=== PATIENT | female | born 1940 | race Caucasian/White ===

== ENCOUNTER 2019-09-03 10:13 | Observation (INO) | payer MEDICARE, OTHER ==
--- OUTSIDE RECORDS SUMMARY | 2019-09-03 10:15 | XMS REPORT ---
:1940 [facility] Address [address] [place] [address] Dr. Christie [address] [place] [id number] Care Team Providers Name Role Phone Unavailable Unavailable Unavailable Problems This patient has no known problems. Allergies, Adverse Reactions, Alerts This patient has no known allergies or adverse reactions. Medications This patient has no known medications.
--- NOTE | 2019-09-03 10:51 | RAD REPORT ---
EXAM DESCRIPTION: RAD - Chest Single View - 09/03/2019 10:45 am CLINICAL HISTORY: CHEST PAIN Chest pain. COMPARISON: No comparisons FINDINGS: Portable technique limits examination quality. The lungs are grossly clear. The heart is normal in size. Changes of a prior CABG are noted. IMPRESSION: No acute intrathoracic process suspected.
[2019-09-03 11:40] LABS: Protime INR 0.89
[2019-09-03 11:48] LABS: Absolute Lymphocytes (CBC) 2.5 K/uL (0.7-4.9); Basophils % 0.8 % (0-1.3); Hematocrit 40.8 % (36.0-45.0); Lymphocytes % 35.3 % (15.3-44.8); MPV 9.2 fL (7.6-11.3)
[2019-09-03 11:50] LABS: ALT/SGPT 24 U/L (12-78); AST/SGOT 26 U/L (15-37); Albumin 3.4 g/dL (3.4-5.0); Alkaline Phosphatase 99 U/L (45-117); BUN Blood Urea Nitrogen 20 mg/dL (7-18); Bicarbonate 28 mmol/L (21-32); Bilirubin Direct 0.1 mg/dL (0-0.2); Bilirubin Total 0.3 mg/dL (0.2-1.0); Glucose Level 103 mg/dL (74-106); Magnesium 2.2 mg/dL (1.8-2.4); NT PRO-BNP 210 pg/mL (<450); Potassium 3.9 mmol/L (3.5-5.1); Sodium Level 142 mmol/L (136-145); Troponin (Emerg Dept Use Only) < 0.02 ng/mL (0.0-0.045)
--- NOTE | 2019-09-03 12:08 | EDPHYS ---
Physician Documentation [facility] Name: Michaela Matias Age: 79 yrs Sex: Female : 1940 Arrival Date: 09/03/2019 Time: 10:16 Bed 5 Private MD: ED Physician Alfredito Gustafson HPI: 09/03 10:37 This 79 yrs old Female presents to ER via Wheelchair with complaints of Chest tw4 Discomfort. 10:37 The patient or guardian reports chest pain that is located primarily in the anterior tw4 chest wall, left. Onset: just prior to arrival, this morning. The pain does not radiate. Associated signs and symptoms: Pertinent positives: nausea, generalized weakness. The chest pain is described as a pressure, squeezing. Duration: The patient or guardian reports a single episode, that is now resolved. Modifying factors: The symptoms are alleviated by nothing. the symptoms are aggravated by nothing. Severity of pain: At its worst the pain was mild in the emergency department the pain has improved. Historical: - Allergies: 10:32 No Known Allergies; sv - PMHx: 10:32 Dementia; Alzheimers; Hypertension; High Cholesterol; sv - PSHx: 10:32 triple bypass; sv - Immunization history:: Flu vaccine is up to date. - Coronavirus screen:: The patient has NOT traveled to [place] in the past 14 days. Proceed with normal triage process as indicated. The patient has NOT had contact with known/suspected case of Coronavirus? Proceed with normal triage procedures. - Social history:: Smoking status: Patient denies any tobacco usage or history of. - Ebola Screening: : No symptoms or risks identified at this time. ROS: 10:37 Constitutional: Negative for fever, chills, and weight loss, Eyes: Negative for injury, tw4 pain, redness, and discharge, ENT: Negative for injury, pain, and discharge, Respiratory: Negative for shortness of breath, cough, wheezing, and pleuritic chest pain, Back: Negative for injury and pain, MS/Extremity: Negative for injury and deformity, Skin: Negative for injury, rash, and discoloration. 10:37 Cardiovascular: Positive for chest pain, Negative for edema, orthopnea, palpitations, paroxysmal nocturnal dyspnea. 10:37 Abdomen/GI: Positive for nausea, Negative for abdominal pain, nausea and vomiting, diarrhea, constipation, abdominal cramps, abdominal distension, anorexia, dysphagia, hematemesis, black/tarry stool. 10:37 Neuro: Positive for weakness. Exam: 10:37 Constitutional: This is a well developed, well nourished patient who is awake, alert, tw4 and in no acute distress. Head/Face: Normocephalic, atraumatic. Neck: Trachea midline, no thyromegaly or masses palpated, and no cervical lymphadenopathy. Supple, full range of motion without nuchal rigidity, or vertebral point tenderness. No Meningismus. Chest/axilla: Normal chest wall appearance and motion. Nontender with no deformity. No lesions are appreciated. Cardiovascular: Regular rate and rhythm with a normal S1 and S2. No gallops, murmurs, or rubs. Normal PMI, no JVD. No pulse deficits. Respiratory: Lungs have equal breath sounds bilaterally, clear to auscultation and percussion. No rales, rhonchi or wheezes noted. No increased work of breathing, no retractions or nasal flaring. Abdomen/GI: Soft, non-tender, with normal bowel sounds. No distension or tympany. No guarding or rebound. No evidence of tenderness throughout. Back: No spinal tenderness. No costovertebral tenderness. Full range of motion. Skin: Warm, dry with normal turgor. Normal color with no rashes, no lesions, and no evidence of cellulitis. MS/ Extremity: Pulses equal, no cyanosis. Neurovascular intact. Full, normal range of motion. Neuro: Awake and alert, GCS 15, oriented to person, place, time, and situation. Cranial nerves II-XII grossly intact. Motor strength 5/5 in all extremities. Sensory grossly intact. Cerebellar exam normal. Normal gait. Vital Signs: 10:31 BP 142 / 72; Pulse 78; Resp 19; Temp 98; Pulse Ox 95% ; Weight 54.43 kg; Height 5 ft. 1 sv in. (154.94 cm); Pain 0/10; 11:35 BP 134 / 66; Pulse 73; Resp 19; Pulse Ox 95% ; sv 12:30 BP 154 / 50; Pulse 76; Resp 20; Pulse Ox 96% ; bp 13:23 BP 153 / 61; Pulse 75; Resp 16; Pulse Ox 97% ; bp 10:31 Body Mass Index 22.67 (54.43 kg, 154.94 cm) sv MDM: 10:24 Patient medically screened. tw 12:08 HEART Score: History: Moderately Suspicious (1), ECG: Non specific repolarization tw4 disturbance / LBTB / PM (1), Age: > or = 65 years (2), Risk Factors: 1 or 2 risk factors (1), Troponin: < or = 1 x Normal Limit (0), Total Score = 5. The patient was given aspirin in the Emergency Department. Data reviewed: vital signs, nurses notes, lab test result(s), cardiac enzymes, CBC, electrolytes, hepatic panel. Data interpreted: monitoring analyst: rhythm is normal sinus rhythm, Pulse oximetry: Interpretation: normal. Counseling: I had a detailed discussion with the patient and/or guardian regarding: the historical points, exam findings, and any diagnostic results supporting the discharge/admit diagnosis, lab results, radiology results. Physician consultation: Milo Arechiga MD was contacted at 12:05, regarding admission, to the telemetry unit. patient's condition, and will see patient in ED. 09/03 10:24 Order name: Basic Metabolic Panel; Complete Time: 12:05 09/03 12:05 Interpretation: Normal except: CL 109; BUN 20; GFR 43. 09/03 10:24 Order name: CBC with Diff; Complete Time: 12:05 09/03 12:05 Interpretation: Within normal limits. 09/03 10:24 Order name: LFT's; Complete Time: 12:05 09/03 12:05 Interpretation: Normal except: GLOB 3.6; A/G 0.9. 09/03 10:24 Order name: Magnesium; Complete Time: 12:05 09/03 12:05 Interpretation: Within normal limits: MG 2.2. 09/03 10:24 Order name: NT PRO-BNP; Complete Time: 12:05 09/03 12:05 Interpretation: Within normal limits: NT PRO-BNP 210. 09/03 10:24 Order name: PT-INR; Complete Time: 12:05 09/03 12:05 Interpretation: Within normal limits: PT 10.6. 09/03 10:24 Order name: Troponin (emerg Dept Use Only); Complete Time: 12:05 09/03 12:06 Interpretation: Within normal limits: TROPED < 0.02. tw4 09/03 12:39 Order name: Urinalysis EDKS 09/03 12:39 Order name: Basic Metabolic Panel [facility] 09/03 12:39 Order name: Basic Metabolic Panel [facility] 09/03 12:39 Order name: CBC with Automated Diff EDKS 09/03 12:39 Order name: CBC with Automated Diff [facility] 09/03 12:40 Order name: Magnesium [facility] 09/03 12:40 Order name: Magnesium [facility] 09/03 10:24 Order name: XRAY Chest (1 view); Complete Time: 11:45 tw4 09/03 10:24 Order name: EKG; Complete Time: 10:32 tw 09/03 10:24 Order name: Cardiac monitoring; Complete Time: 10:30 [facility] 09/03 10:24 Order name: EKG - Nurse/Tech; Complete Time: 10:49 tw4 09/03 10:24 Order name: IV Saline Lock; Complete Time: 10:49 [facility] 09/03 10:24 Order name: Labs collected and sent; Complete Time: 10:49 [facility] 09/03 10:24 Order name: O2 Per Protocol; Complete Time: 10:30 tw 09/03 10:24 Order name: O2 Sat Monitoring; Complete Time: 10:30 [facility] 09/03 10:56 Order name: Labs - recollect needed: recollect everything; Complete Time: 11:23 09/03 12:39 Order name: CONS Physician Consult [facility] 09/03 12:39 Order name: Heart Healthy [facility] 09/03 12:40 Order name: Phosphorus [facility] 09/03 12:40 Order name: Phosphorus [facility] 09/03 12:41 Order name: Echo with Doppler EDKS EC:37 Rate is 74 beats/min. Rhythm is regular. QRS [place] is Normal. [place] interval is normal. QRS tw4 interval is normal. QT interval is normal. No Q waves. T waves are Inverted in lead III. T waves are Flattened in lead aVF. No ST changes noted. Clinical impression: NSR w/ Non-specific ST/T Changes. Interpreted by me. Reviewed by me. Administered Medications: No medications were administered Disposition: 09/03/19 12:08 Hospitalization ordered by Milo Arechiga for Observation. Preliminary diagnosis is Chest pain, unspecified. - Bed requested for Telemetry/MedSurg (observation). - Status is Observation. tm3 - Condition is Stable. - Problem is new. - Symptoms have improved. Signatures: Dispatcher [employer] EDMS Lizett Blankenship mark Nadeem, Jones tm3 Aaliyah Camejo, RN RN Melo Simon RN RN ja1 Alfredito Gustafson MD MD tw4 Corrections: (The following items were deleted from the chart) 12:54 12:08 Hospitalization Ordered by Milo Arechiga MD for Observation. Preliminary ja1 diagnosis is Chest pain, unspecified. Bed requested for Telemetry/MedSurg (observation). Status is Observation. Condition is Stable. Problem is new. Symptoms have improved. tw4 13:52 12:54 09/03/2019 12:08 Hospitalization Ordered by Milo Arechiga MD for Observation. tm3 Preliminary diagnosis is Chest pain, unspecified. Bed requested for Telemetry/MedSurg (observation). Status is Observation. Condition is Stable. Problem is new. Symptoms have improved. ja1
--- NOTE | 2019-09-03 12:08 | ER ---
Nurse's Notes [facility] Name: Michaela Matias Age: 79 yrs Sex: Female : 1940 Arrival Date: 09/03/2019 Time: 10:16 Bed 5 Private MD: Diagnosis: Chest pain, unspecified Presentation: 09/03 10:30 Presenting complaint: Patient states: was awake at home and started having "chest sv discomfort" (pointing to midsternal area) and SOB/nausea/shaking. Denies vomiting and SOB at this time. Transition of care: patient was not received from another setting of care. Onset of symptoms was September 03, 2019. 10:30 Method Of Arrival: Wheelchair sv 10:30 Acuity: ROSALBA 3 sv 10:30 Risk Assessment: Do you want to hurt yourself or someone else? Patient reports no sv desire to harm self or others. Initial Sepsis Screen: Does the patient meet any 2 criteria? No. Patient's initial sepsis screen is negative. Does the patient have a suspected source of infection? No. Patient's initial sepsis screen is negative. Care prior to arrival: None. Triage Assessment: 10:30 General: Appears in no apparent distress. comfortable, Behavior is calm, cooperative, sv appropriate for age. Pain: Denies pain. Neuro: Level of Consciousness is awake, alert, obeys commands, Oriented to person, place, time, situation, Moves all extremities. Full function Gait is steady. Cardiovascular: Denies shortness of breath, Chest pain is denied. Respiratory: Airway is patent Respiratory effort is even, unlabored, Respiratory pattern is regular, symmetrical. Derm: Skin is fragile, is thin, Skin is normal. Musculoskeletal: Range of motion: intact in all extremities. Historical: - Allergies: 10:32 No Known Allergies; sv - PMHx: 10:32 Dementia; Alzheimers; Hypertension; High Cholesterol; sv - PSHx: 10:32 triple bypass; sv - Immunization history:: Flu vaccine is up to date. - Coronavirus screen:: The patient has NOT traveled to [place] in the past 14 days. Proceed with normal triage process as indicated. The patient has NOT had contact with known/suspected case of Coronavirus? Proceed with normal triage procedures. - Social history:: Smoking status: Patient denies any tobacco usage or history of. - Ebola Screening: : No symptoms or risks identified at this time. Screenin:31 Abuse screen: Denies threats or abuse. Denies injuries from another. Nutritional sv screening: No deficits noted. Tuberculosis screening: No symptoms or risk factors identified. Fall Risk None identified. Assessment: 11:35 Reassessment: Patient appears in no apparent distress at this time. No changes from sv previously documented assessment. Patient and/or family updated on plan of care and expected duration. Pain level reassessed. Patient is alert, oriented x 3, equal unlabored respirations, skin warm/dry/pink. 12:30 Reassessment: Patient appears in no apparent distress at this time. Patient and/or bp family updated on plan of care and expected duration. Pain level reassessed. Patient is alert, oriented x 3, equal unlabored respirations, skin warm/dry/pink. Cardiovascular: Rhythm is sinus rhythm. 13:33 Reassessment: ADMIT COMPLETE. REPORT TO MIRNA ESPINOSA FOR 412. bp Vital Signs: 10:31 BP 142 / 72; Pulse 78; Resp 19; Temp 98; Pulse Ox 95% ; Weight 54.43 kg; Height 5 ft. 1 sv in. (154.94 cm); Pain 0/10; 11:35 BP 134 / 66; Pulse 73; Resp 19; Pulse Ox 95% ; sv 12:30 BP 154 / 50; Pulse 76; Resp 20; Pulse Ox 96% ; bp 13:23 BP 153 / 61; Pulse 75; Resp 16; Pulse Ox 97% ; bp 10:31 Body Mass Index 22.67 (54.43 kg, 154.94 cm) sv ED Course: 10:16 Patient arrived in ED. ag5 10:24 Alfredito Gustafson MD is Attending Physician. tw4 10:30 Aaliyah Camejo, FRANCISCA is Primary Nurse. sv 10:31 Triage completed. sv 10:31 Arm band placed on. sv 10:31 Patient has correct armband on for positive identification. Placed in gown. Bed in low sv position. Call light in reach. Adult w/ patient. monitoring coordinator on. Pulse ox on. NIBP on. Door closed. Warm blanket given. Head of bed elevated. 10:40 Inserted saline lock: 22 gauge in left antecubital area, using aseptic technique. sv ,using aseptic technique. diffusics Blood collected. Flushed left antecubital with 2 ml normal saline. 10:46 XRAY Chest (1 view) In Process Unspecified. EDMS 10:47 Awaiting lab results, Awaiting radiology results. sv 10:47 X-ray(s) taken. sv 10:49 EKG done, by electronic train control technician. reviewed by Alfredito Gustafson MD. at1 11:15 Lab(s) recollected, by ED staff, sent to lab. sv 11:32 Warm blanket given. mh5 11:32 Lab(s) recollected, by me, sent to lab. mh5 11:40 Awaiting lab results. sv 12:07 Milo Arechiga MD is Hospitalizing Provider. tw4 13:22 No provider procedures requiring assistance completed. Patient admitted, IV remains in bp place. 13:40 Echocardiogram with doppler done by installation and repair technician. tc Administered Medications: No medications were administered Outcome: 12:08 Decision to Hospitalize by Provider. tw4 13:32 Admitted to Tele accompanied by tech, family with patient, via wheelchair, room 412, bp with chart, Report called to MIRNA ESPINOSA 13:32 Condition: stable 13:32 Instructed on the need for admit. 13:52 Patient left the ED. tm3 Signatures: Dispatcher [employer] EDMS [place] tm3 Aaliyah Camejo, RN RN Rosemary Adam, printing agent EKG Tat1 Cici Conte, printing agent EKG Ttc Maddie Stokes 5 Osito Brewster, RN RN Alfredito Mcgrath MD MD tw4 Brooklyn Baer 5
[2019-09-03] MEDS ORDERED: ONDANSETRON 4 MG/2 ML VIAL IV PRN (12:29)
[2019-09-03] MEDS ORDERED: ACETAMINOPHEN 500 MG TAB PO PRN (12:29)
--- NOTE | 2019-09-03 12:38 | P.HP ---
Certification for Inpatient Patient admitted to: Observation With expected LOS: <2 Midnights Patient will require the following post-hospital care: None Practitioner: I am a practitioner with admitting privileges, knowledge of patient current condition, hospital course, and medical plan of care. Services: Services provided to patient in accordance with Admission requirements found in Title 42 Section 412.3 of the Code of Federal Regulations Patient History Date of Service: 09/03/19 Reason for admission: Chest Pain History of Present Illness: 79 yrs old Female with past medical history of CAD status post CABG, vascular dementia, hypertension, hyperlipidemia, GERD brought to ER with chest discomfort which started this morning. Retrosternal location pressure-like nonradiating not associated with any diaphoresis. Patient complains of nausea but no vomiting. associated with the shortness of breath. At the time of interview the pain is slightly better. he also complains of a generalized weakness. Patient has not seen a game attendant Dr. Nagel in a while . Denies any fever or chills. No cough No aggravating or relieving factors Home medications list reviewed: Yes - Past Medical/Surgical History Past Medical History: Reviewed- Non-Contributory -: CAD -: HTN -: Vascular Dementia Past Surgical History: Reviewed- Non-Contributory -: CABG - Family History Family History: Reviewed- Non-Contributory - Social History Smoking Status: Never smoker Review of Systems 10-point ROS is otherwise unremarkable Physical Examination - Vital Signs Temperature: 98.5 F Blood Pressure: 162/92 Pulse: 78 Respirations: 20 Pulse Ox (%): 96 - Physical Exam General: Alert, In no apparent distress, Cooperative HEENT: Atraumatic, Normocephalic Neck: Supple Respiratory: Clear to auscultation bilaterally, Normal air movement Cardiovascular: No edema, Normal pulses, Regular rate/rhythm Capillary refill: <2 Seconds Gastrointestinal: Soft and benign, W/out hepatosplenomegaly Musculoskeletal: No clubbing, No swelling Integumentary: No rashes Neurological: Normal speech, Normal strength at 5/5 x4 extr Lymphatics: No axilla or inguinal lymphadenopathy Urinary: Other (No bladder distention) External genitalia: Deferred Rectal: Deferred - Studies Laboratory Data (last 24 hrs) 09/03/19 11:15: PT 10.6, INR 0.89 09/03/19 11:15: WBC 7.0, Hgb 13.6, Hct 40.8, Plt Count 276 09/03/19 11:15: Sodium 142, Potassium 3.9, BUN 20 H, Creatinine 1.21, Glucose 103, Magnesium 2.2, Total Bilirubin 0.3, AST 26, ALT 24, Alkaline Phosphatase 99 Assessment and Plan - Problems (Diagnosis) (1) Chest pain Current Visit: Yes Status: Acute Qualifiers: Chest pain type: precordial pain Qualified Code(s): R07.2 - Precordial pain (2) CAD (coronary artery disease) Current Visit: Yes Status: Chronic Qualifiers: [place] vs. transplanted heart: [place] heart Associated angina: with unstable angina (3) HTN (hypertension) Current Visit: Yes Status: Chronic Qualifiers: Hypertension type: essential hypertension Qualified Code(s): I10 - Essential (primary) hypertension (4) Vascular dementia Current Visit: Yes Status: Chronic Plan: Chest pain to rule out ACS Hypertension history of CAD status post CABG Vascular dementia Hyperlipidemia Plan keep under observation Monitor under telemetry Trend cardiac enzymes Aspirin statin Continue home medications and titrate as needed Get an echocardiogram cardiology consult Antihypertensives titrated GI/DVT prophylaxis Advanced directives full code for now - Advance Directives Does patient have a Living Will: No Does patient have a Durable POA for Healthcare: No Time Spent Managing Pts Care (In Minutes): 42
--- NOTE | 2019-09-03 15:25 | EKG ---
Test Date: 2019-09-03 Test Time: 10:34:23 Pet Crematory Worker: MINE MEASUREMENT RESULTS: Intervals: Rate: 74 [place]: 130 QRSD: 82 QT: 436 QTc: 483 [place]: P: 53 AZ: 130 QRS: -22 T: 11 INTERPRETIVE STATEMENTS: Normal sinus rhythm Nonspecific ST abnormality Abnormal ECG No previous ECG available for comparison Electronically Signed On 09-03-19 15:24:42 SNAP ATTACHER by Derik Johnston
[2019-09-03 15:57] VITALS: BMI 22.6
[2019-09-03 16:19] LABS: Urine Appearance CLEAR; Urine Bilirubin NEGATIVE (NEG); Urine Blood NEGATIVE (NEG); Urine Color YELLOW; Urine Glucose NEGATIVE (NEG); Urine Protein 1+ (NEG); Urine Specific Gravity 1.015 (1.005-1.030); Urine Urobilinogen 0.2 mg/dL (0.2-1.0); Urine pH 7.5 (5.0-7.0)
[2019-09-03] MEDS ORDERED: POTASSIUM CL SA 10 MEQ TAB PO ONE (17:00)
[2019-09-03 17:03] LABS: Urine Bacteria <20 /HPF (<20); Urine Microscopic Reflex ORDER UMIC; Urine RBC <5 /HPF (NONE SEEN)
[2019-09-03 18:28] LABS: CKMB Creatine Kinase MB < 1.0 ng/mL (0.3-3.6); Creatine Phosphokinase 56 U/L (26-192); HDL Cholesterol 74 mg/dL (40-60); LDL Cholesterol, Calculated 48 (<130); Troponin I < 0.02 ng/mL (0.0-0.045)
--- NOTE | 2019-09-03 20:51 | CON ---
Date of Consultation: 09/03/[address] Arechiga on 09/03/2019. I saw the patient on 09/03/2019. Reason For Consultation: Chest pain. History Of Present Illness: Ms. Matias is a 79-year-old patient of Dr. Nagel, has had coronary arter y bypass surgery 23 years ago. Has Alzheimer's dementia, hypertension, and dyslipidemia. Her bypass surgery was done in [place], [place]. She saw Dr. Nagel about a year ago and had a negative stress test. Came in with substernal chest pain that lasted few hours with some nausea, but no vomiting or diaphoresis. She denied PND, orthopnea, pedal edema, palpitations, or syncope. She has already rule d out for an ME. Her EKG is unremarkable, her chest x-ray is negative. She is pain-free now. Past Medical History: As stated above. Allergies: SHE IS ALLERGIC TO DEMEROL. Review of Systems: Negative. Social History: Negative. Family History: Negative. Medications: At home include, Norvasc, Aricept, Prozac, Remeron, Prilosec, Crestor, and trazodone. Physical Examination: General: Ms. Matias appears to be in no acute distress. She was in sinus rhythm. Vital Signs: Stable. She was afebrile. HEENT: Negative. Neck: Supple, no bruit. Chest: Clear. Cardiac: Revealed a regular rhythm and rate. No murmurs, gallops, or rubs. Abdomen: Benign. Extremities: Revealed no clubbing, cyanosis, or edema. Diagnostic Data: All within normal limits. Impression And Plan: Atypical chest pain, prolonged with nausea, but yet she had negative EKG, negat mele troponin, negative chest x-ray. She had a normal echocardiogram. I think we are dealing with ga stroesophageal reflux disease. She had a negative stress test about a year ago. She sees Dr. Khalif meza and Dr. Holly and as far as I am concerned, she does not need any further cardiac workup. She can go home and she can see her physicians as an outpatient. Her other problems include hypertension catherine t is well controlled. She has dementia and Alzheimer's for which she takes Aricept, Prozac, and Della anjum. She does have reflux history and she takes Prilosec for that. She has dyslipidemia that is wel l controlled on Crestor. I agree with her present regimen, she can go home whenever it is okay with Dr. Arechiga. GWENDOLYN/HUONG Voice ID: [id number] Report ID: [id number]
[2019-09-03] MEDS ORDERED: TRAZODONE 50 MG TABLET PO SCH (21:00)
[2019-09-03] MEDS ORDERED: PANTOPRAZOLE 40MG TABLET PO SCH (21:00)
[2019-09-03] MEDS ORDERED: AMLODIPINE 5 MG TAB PO SCH (21:00)
[2019-09-03 23:02] LABS: CKMB Creatine Kinase MB < 1.0 ng/mL (0.3-3.6); Creatine Phosphokinase 54 U/L (26-192); Troponin I < 0.02 ng/mL (0.0-0.045)
[2019-09-04 05:56] LABS: Absolute Lymphocytes (CBC) 2.8 K/uL (0.7-4.9); Lymphocytes % 34.4 % (15.3-44.8); MPV 9.1 fL (7.6-11.3); RBC Red Blood Cell Count 3.97 M/uL (3.86-4.86)
[2019-09-04 06:55] LABS: BUN Blood Urea Nitrogen 24 mg/dL (7-18); Bicarbonate 27 mmol/L (21-32); CKMB Creatine Kinase MB < 1.0 ng/mL (0.3-3.6); Creatine Phosphokinase 45 U/L (26-192); Glucose Level 103 mg/dL (74-106); Magnesium 2.4 mg/dL (1.8-2.4); Phosphorus 3.5 mg/dL (2.5-4.9); Potassium 4.7 mmol/L (3.5-5.1); Sodium Level 143 mmol/L (136-145); Troponin I < 0.02 ng/mL (0.0-0.045)
--- NOTE | 2019-09-04 08:01 | ECHO ---
HEIGHT: 5 ft 1 in WEIGHT: 120 lb 0 oz DATE OF STUDY: 09/03/[address]: Steve Arechiga DO 2-DIMENSIONAL: YES M.MODE: YES DOPPLER: YES COLOR FLOW: YES TDS: NO PORTABLE: NO DEFINITY: NO BUBBLE STUDY: NO DIAGNOSIS: CHEST PAIN CARDIAC HISTORY: CATHERIZATION: NO SURGERY: YES PROSTHETIC VALVE: NO PACEMAKER: NO MEASUREMENTS (cm) DIASTOLIC (NORMALS) SYSTOLIC (NORMALS) IVSd 0.8 (0.6-1.2) LA Diam 2.8 (1.9-4.0) LVEF 53% LVIDd 4.6 (3.5-5.7) LVIDs 3.3 (2.0-3.5) %FS 27% LVPWd 0.9 (0.6-1.2) Ao Diam 2.7 (2.0-3.7) 2 DIMENSIONAL ASSESSMENT: RIGHT ATRIUM: NORMAL LEFT ATRIUM: NORMAL RIGHT VENTRICLE: NORMAL LEFT VENTRICLE: NORMAL TRICUSPID VALVE: NORMAL MITRAL VALVE: NORMAL PULMONIC VALVE: NORMAL AORTIC VALVE: NORMAL PERICARDIAL EFFUSION: NONE AORTIC ROOT: NORMAL LEFT VENTRICULAR WALL MOTION: NORMAL DOPPLER/COLOR FLOW: MILD TRICUSPID REGURGITATION. COMMENTS: MILD TRICUSPID REGURGITATION. NORMAL RIGHT VENTRICULAR SYSTOLIC PRESSURE. NORMAL LEFT VENTRICULAR SIZE AND FUNCTION. NO WALL MOTION ABNORMALITY. NO EFFUSION. TECHNOLOGIST: Aleja ENRIQUEZ
[2019-09-04 08:39] VITALS: BP 117/49; TEMP 98.1
[2019-09-04] MEDS ORDERED: ASPIRIN EC 81 MG TAB PO SCH (09:00)
--- NOTE | 2019-09-04 09:34 | P.PN ---
Subjective Date of Service: 09/04/19 Chief Complaint: Chest Pain Subjective: Other (Chest Pain is better C/o Abdominal discomfort and nausea) Review of Systems Gastrointestinal: Nausea, Abdominal Pain Physical Examination - Vital Signs Temperature: 98.1 F Blood Pressure: 117/49 Pulse: 74 Respirations: 18 Pulse Ox (%): 92 - Physical Exam General: Alert, In no apparent distress HEENT: Atraumatic, Normocephalic Neck: Supple Respiratory: Clear to auscultation bilaterally Cardiovascular: Regular rate/rhythm Capillary refill: <2 Seconds Gastrointestinal: Soft and benign, W/out hepatosplenomegaly, Other (epigastric tenderness ) Musculoskeletal: No swelling Integumentary: No rashes Neurological: Normal strength at 5/5 x4 extr Lymphatics: No axilla or inguinal lymphadenopathy External genitalia: Deferred Rectal: Deferred - Studies Laboratory Data (last 24 hrs) 09/03/19 11:15: PT 10.6, INR 0.89 09/03/19 11:15: WBC 7.0, Hgb 13.6, Hct 40.8, Plt Count 276 09/03/19 11:15: Sodium 142, Potassium 3.9, BUN 20 H, Creatinine 1.21, Glucose 103, Magnesium 2.2, Total Bilirubin 0.3, AST 26, ALT 24, Alkaline Phosphatase 99 Assessment & Plan - Problems (Diagnosis) (1) Chest pain Current Visit: Yes Status: Acute Qualifiers: Chest pain type: precordial pain Qualified Code(s): R07.2 - Precordial pain (2) CAD (coronary artery disease) Current Visit: Yes Status: Chronic Qualifiers: [place] vs. transplanted heart: [place] heart Associated angina: with unstable angina (3) HTN (hypertension) Current Visit: Yes Status: Chronic Qualifiers: Hypertension type: essential hypertension Qualified Code(s): I10 - Essential (primary) hypertension (4) Vascular dementia Current Visit: Yes Status: Chronic Plan: Chest pain to rule out ACS Hypertension history of CAD status post CABG Vascular dementia Hyperlipidemia Plan Monitored under telemetry Trented cardiac enzymes Aspirin statin Continue home medications and titrate as needed Noted echocardiogram cardiology consulted Recommended conservative management and outpatient follow up Antihypertensives titrated Patient complained of abdominal pain and nausea Will get an ultrasound of the abdomen P.r.n. Peytonfran Start on PPI GI/DVT prophylaxis Advanced directives full code for now Possible Dc home if nausea vomiting and abdominal pain resolves and if ultrasound is negative (5) Abdominal pain Current Visit: Yes Status: Acute Plan: pain control protonix Will get US abdomen (6) Nausea & vomiting Current Visit: Yes Status: Acute Plan: started on zofran Discharge Plan: Home Plan to discharge in: 24 Hours Time Spent Managing Pts Care (In Minutes): 42
[2019-09-04 09:47] VITALS: O2SAT 94
[2019-09-04] MEDS ORDERED: NA CHLORIDE 0.9% 1,000 ML IV SCH (10:00)
--- NOTE | 2019-09-04 14:55 | P.DS ---
Admission Date: 09/03/19 Discharge Date: 09/06/19 Disposition: ROUTINE DISCHARGE Discharge Condition: GOOD Reason for Admission: Chest Pain - Problems (1) Chest pain Status: Acute Qualifiers: Chest pain type: precordial pain Qualified Code(s): R07.2 - Precordial pain (2) CAD (coronary artery disease) Status: Chronic Qualifiers: [place] vs. transplanted heart: [place] heart Associated angina: with unstable angina (3) HTN (hypertension) Status: Chronic Qualifiers: Hypertension type: essential hypertension Qualified Code(s): I10 - Essential (primary) hypertension (4) Vascular dementia Status: Chronic (5) Abdominal pain Status: Acute (6) Nausea & vomiting Status: Acute Brief History of Present Illness: 79 yrs old Female with past medical history of CAD status post CABG, vascular dementia, hypertension, hyperlipidemia, GERD brought to ER with chest discomfort which started this morning. Retrosternal location pressure-like nonradiating not associated with any diaphoresis. Patient complains of nausea but no vomiting. associated with the shortness of breath. At the time of interview the pain is slightly better. he also complains of a generalized weakness. Patient has not seen a airport sales agent Dr. Lira in a while . Denies any fever or chills. No cough No aggravating or relieving factors Hospital Course: Chest pain unspecified Hypertension history of CAD status post CABG Vascular dementia Hyperlipidemia Gluten allergy Course She was admitted and was monitored closely under telemetry. Cardiac enzymes were trended and was within normal limits. Cardiology was consulted. And an echocardiogram. Was started on Aspirin statin Continued home medications and titrate as needed Noted echocardiogram cardiology consulted Recommended conservative management and outpatient follow up Antihypertensives titrated Patient complained of abdominal pain and nausea Will get an ultrasound of the abdomen P.r.nCindi Castillo Start on PPI Possible Dc home if nausea vomiting and abdominal pain resolves and if ultrasound is negative Vital Signs/Physical Exam: Temp Pulse Resp BP Pulse Ox 98.1 F 74 18 117/49 L 92 09/04/19 12:09 09/04/19 12:09 09/04/19 12:09/04/19 12:09/04/19 12:09 General: Alert, In no apparent distress HEENT: Atraumatic, Normocephalic Neck: Supple Respiratory: Clear to auscultation bilaterally Cardiovascular: No edema, Regular rate/rhythm Capillary refill: <2 Seconds Gastrointestinal: Soft and benign Musculoskeletal: No clubbing, No swelling Integumentary: No rashes Neurological: Normal speech, Normal strength at 5/5 x4 extr Lymphatics: No axilla or inguinal lymphadenopathy Laboratory Data at Discharge: WBC 8.1 K/uL (4.3-10.9) D 09/04/19 05:09 Hgb 12.0 g/dL (12.0-15.0) 09/04/19 05:09 Hct 36.0 % (36.0-45.0) 09/04/19 05:09 Plt Count 227 K/uL (152-406) 09/04/19 05:09 PT 10.6 SECONDS (9.5-12.5) 09/03/19 11:15 INR 0.89 09/03/19 11:15 Sodium 143 mmol/L (136-145) 09/04/19 05:09 Potassium 4.7 mmol/L (3.5-5.1) 09/04/19 05:09 BUN 24 mg/dL (7-18) H 09/04/19 05:09 Creatinine 1.35 mg/dL (0.55-1.3) H 09/04/19 05:09 Glucose 103 mg/dL (74-106) 09/04/19 05:09 Phosphorus 3.5 mg/dL (2.5-4.9) 09/04/19 05:09 Magnesium 2.4 mg/dL (1.8-2.4) 09/04/19 05:09 Total Bilirubin 0.3 mg/dL (0.2-1.0) 09/03/19 11:15 AST 26 U/L (15-37) 09/03/19 11:15 ALT 24 U/L (12-78) 09/03/19 11:15 Alkaline Phosphatase 99 U/L (45-117) 09/03/19 11:15 Troponin I < 0.02 ng/mL (0.0-0.045) 09/04/19 05:09 Triglycerides 108 mg/dL (<150) 09/03/19 17:40 Cholesterol 144 mg/dL (<200) 09/03/19 17:40 HDL Cholesterol 74 mg/dL (40-60) H 09/03/19 17:40 Cholesterol/HDL Ratio 1.95 09/03/19 17:40 Home Medications: Amlodipine Besylate [Norvasc] 5 mg PO BEDTIME 09/03/19 Donepezil HCl [Aricept] 50 mg PO BEDTIME 09/03/19 Fluoxetine HCl [Prozac] 20 mg PO BEDTIME 09/03/19 Mirtazapine [Remeron] 15 mg PO BEDTIME 09/03/19 Rosuvastatin Calcium 40 mg PO BEDTIME 09/03/19 Trazodone [Desyrel*] 100 mg PO BEDTIME 09/03/19 Ondansetron [Zofran] 4 mg PO Q6H PRN #10 tab 09/04/19 Pantoprazole [Protonix Tab*] 40 mg PO DAILY #30 tab 09/04/19 New Medications: Ondansetron [Zofran] 4 mg PO Q6H PRN #10 tab PRN Reason: Nausea / Vomiting Pantoprazole [Protonix Tab*] 40 mg PO DAILY #30 tab Diet: AHA Activity: Ad dwain Followup: Rodrick Holly MD [Primary Care Provider] - 2-3 Days (primary care provider- call to schedule an appointment ) NICHOLE LIRA [UNKNOWN] - 1 Week (airport sales agent- call to schedule an appointment ) Rodrick Juares MD [ASSOCIATE-ACTIVE - CAN ADMIT] - (GI doctor- call to schedule an appointment ) Time spent managing pt's care (in minutes): 39
--- NOTE | 2019-09-04 14:57 | RAD REPORT ---
EXAM DESCRIPTION: US - Abdomen Exam Complete - 09/04/2019 2:44 pm CLINICAL HISTORY: Abdominal pain. Abdominal Pain COMPARISON: Renal Ultrasound-Complete dated 12/27/2017 FINDINGS: Mildly heterogenous liver echotexture noted. No focal liver lesions or intrahepatic biliar y dilatation is seen. The gallbladder demonstrates no gallstones, pericholecystic fluid or gallbladder wall thickening. Co mmon bile duct is normal in caliber measuring 3 mm. Both kidneys are normal in size, shape and echotexture. No hydronephrosis, focal lesion of concern or perinephric fluid. The spleen is normal in size measuring 7 cm. The pancreas and aorta are obscured by bowel gas. The visualized aspects of the IVC are grossly normal. IMPRESSION: Mildly heterogenous liver echotexture is noted likely indicating fatty infiltration or c hronic inflammation. Otherwise, unremarkable study.
== END 2019-09-04 15:45 | disposition home or self-care (01) ==
LOC: ER 10:13 → ERHOLD 12:30 → 4TH 13:42
PROVIDERS: ADMIT Family Medicine; ATTEND Family Medicine
DX: R07.9 Chest pain, unspecified (principal); I10 Essential (primary) hypertension; I25.10 Atherosclerotic heart disease of native coronary artery without angina pectoris; R10.9 Unspecified abdominal pain; F01.50 Vascular dementia, unspecified severity, without behavioral disturbance, psychotic disturbance, mood disturbance, and anxiety; E78.5 Hyperlipidemia, unspecified; R11.2 Nausea with vomiting, unspecified; Z91.09 Other allergy status, other than to drugs and biological substances; Z95.1 Presence of aortocoronary bypass graft
CPT/HCPCS: 93005; 93306; 85025 ×2; 80048 ×2; 36415; 83735 ×2; 82550 ×3; 84100; 85610; 80061; 80076; 84484 ×4; 82553 ×3; 83880; 71045; 76700; 94760 ×3; 99285; J7030; J2405; G0378 ×3; 81003; 81015

== ENCOUNTER 2020-06-07 20:12 | Inpatient (IN) | payer MEDICARE ==
--- OUTSIDE RECORDS SUMMARY | 2020-06-07 20:15 | XMS REPORT | Continuity of Care Document ---
:1940 Author Organization [facility] t Address [address] [place] [address] Care Team Providers Name Role Phone Keke ZHANG Primary Care Physician Nasrin ZHANG Attending Clinician Doctor Unassigned, Name Attending Clinician Unavailable Problems Condition Condition Condition Status Onset Resolution Last Treating Co mments Source Name Details Category Date Date Treatment Clinician Date HTN HTN Disease Active 2017-07 [place] (hypertens (hypertens 2-14 Me thodi ion) ion) 00:00: st 00 Type 2 Type 2 Disease Active [place] diabetes diabetes 01-05 [facility] mellitus mellitus 00:00: st 00 PUD PUD Disease Active [place] (peptic (peptic 01-05 [facility] ulcer ulcer 00:00: st disease) disease) 00 CKD CKD Disease Active [place] (chronic (chronic 01-05 [facility] i kidney kidney 00:00: st disease), disease), 00 stage III stage III Allergies, Adverse Reactions, Alerts Allergy Allergy Status Severity Reaction(s) Onset Inactive Treating Comm ents Source Name Type Date Date Clinician Sulfamet Propensi Active Nausea, [place] hoxazole ty to 01-04 Vomitting Metho di -Trimeth adverse 00:00: st oprim reaction 00 s to drug Meperidi Propensi Active GI Nausea [place] ty to Intolerance - Vomitting Me thodi adverse 00:00: st reaction 00 s to drug Family History Family Member Diagnosis Comments Start Date Stop Date Source Natural father Diabetes [facility] thodist Social History Social Habit Start Date Stop Date Quantity Comments Source Sex Assigned At [facility] ethodist Tobacco use and 2018-09-07 2018-09-07 Never used [facility] ethodist exposure 00:00:00 00:00:00 Alcohol intake 2018-09-07 2018-09-07 Current [facility] thodist 00:00:00 00:00:00 non-drinker of alcohol (finding) Tobacco Comment 2017-01-04 2017-01-04 up to 1ppd x 15 [place] 00:00:00 00:00:00 -20 years History of 1987-01-04 [facility] Smoking Status Start Date Stop Date Source Former smoker 2018-09-07 00:00:00 2018-09-07 00:00:00 [place] Medications Ordered Filled Start Stop Current Ordering Indication Dosage Frequency Signature Comments Components Source Medication Medication Date Date Medication? Clinician (SIG) Name Name rosuvastati Yes TAKE ONE Ho helena n (CRESTOR) 9-09 TABLET BY Met hodi 40 MG 00:00: MOUTH st tablet 00 DAILY amLODIPine Yes TAKE ONE [place] ha (NORVASC) 5 9-09 TABLET BY Met hodi mg tablet 00:00: MOUTH st 00 DAILY traZODone Yes Episode of TAKE ONE [place] (DESYREL) 9-09 recurrent TABLET BY Methodi 100 MG 00:00: major MOUTH st tablet 00 depressive EVERY disorder, NIGHT AT unspecified BEDTIME depression episode severity (HCC) FLUoxetine Yes TAKE THREE [place] (PROzac) 20 9-09 CAPSULES Meth nelson MG capsule 00:00: BY MOUTH st 00 DAILY dexlansopra Yes 30mg QD Take 1 [place] zole 2-25 capsule [facility] (DEXILANT) 00:00: ([address] 30 mg 00 total) by capsule mouth daily. FLUoxetine 2017-07 Yes 60mg QD Take 3 [place] (PROzac) 20 2-14 tablets Metho di MG tablet 00:00: ([address] total) by mouth daily. Immunizations Ordered Immunization Filled Immunization Date Status Commen ts Source Name Name Influenza Trivalent 2018-03-07 Completed [place] 00:00:00 [place] FLUZONE HIGH-DOSE PF 2017-06-02 Completed [place] 00:00:00 [place] Pneumococcal 2015-10-22 Completed [place] Conjugate 13-Valent 00:00:00 Meth[place] dist Td 2011-01-13 Completed [place] 00:00:00 [place] Influenza Trivalent 2008-04-25 Completed [place] 00:00:00 [place] Pneumococcal 2008-04-25 Completed [place] Polysaccharide 00:00:00 [facility] Procedures This patient has no known procedures. Plan of Care Planned Activity Planned Date Details Comments Source Future Scheduled 2020-02-15 INFLUENZA VACCINE [place] Test 00:00:00 [code = INFLUENZA VACCINE] Future Scheduled 2019-08-17 DIABETES: RETINAL [place] Test 00:00:00 EYE EXAM [code = DIABETES: RETINAL EYE EXAM] Future Scheduled 2018-12-01 DIABETIC FOOT EXAM [place] [facility] Test 00:00:00 [code = DIABETIC FOOT EXAM] Future Scheduled 2015-12-22 SHINGLES VACCINES [place] Test 00:00:00 (#2) [code = SHINGLES VACCINES (#2)] Encounters Start End Encounter Admission Attending Care Care Encounter Source Date/Time Date/Time Type Type Clinicians Facility Department ID 2019-03-20 2019-03-20 Office Nasrin [facility] [id number] 12:31:42 13:16:54 Visit Chencho Byrd [id number] [place] [id number] [place] [id number] [address] 2018-12-04 2018-12-04 Orders Doctor FOREIGN [id number] 14 00:00:00 00:00:00 Only Unassigned, ALICIA [id number] [place] [facility] [id number] Results This patient has no known results.
--- OUTSIDE RECORDS SUMMARY | 2020-06-07 20:15 | XMS REPORT | Clinical Summary ---
:1940 Author Organization [facility] Address [address] [place] [address] Care Team Providers Name Role Phone Chasity Davies MD Primary Care Provider [phone] Allergies Active Allergy Reactions Severity Noted Date Comments Sulfamethoxazole-Trimethoprim 01/04/2017 Nausea, Vomitting Meperidine GI Intolerance Low 01/04/2017 Nausea Vomitt ing Medications Medication Sig Dispensed Refills Start Date End Date Status FLUoxetine (PROzac) 20 Take 3 tablets 270 tablet 2 06/29/2018 Active MG tablet (60 mg total) by mouth daily. dexlansoprazole Take 1 capsule 30 capsule 6 09/10/2018 Active (DEXILANT) 30 mg (30 mg total) capsule by mouth daily. rosuvastatin (CRESTOR) TAKE ONE TABLET 90 tablet 1 03/25/2019 Active 40 MG tablet BY MOUTH DAILY amLODIPine (NORVASC) 5 TAKE ONE TABLET 90 tablet 1 03/25/2019 Active mg tablet BY MOUTH DAILY traZODone (DESYREL) 100 TAKE ONE TABLET 90 tablet 1 03/25/2019 Active MG tabletIndications: BY MOUTH EVERY Episode of recurrent NIGHT AT major depressive BEDTIME disorder, unspecified depression episode severity (HCC) FLUoxetine (PROzac) 20 TAKE THREE 270 capsule 1 03/25/2019 Active MG capsule CAPSULES BY MOUTH DAILY Active Problems Problem Noted Date HTN (hypertension) 06/29/2018 Type 2 diabetes mellitus 01/05/2017 PUD (peptic ulcer disease) 01/05/2017 CKD (chronic kidney disease), stage III 01/05/2017 Immunizations Name Administration Dates Next Due FLUZONE HIGH-DOSE PF 06/02/2017 Influenza Trivalent 03/07/2018, 04/25/2008 Pneumococcal Conjugate 13-Valent 10/22/2015 Pneumococcal Polysaccharide 04/25/2008 Td 01/13/2011 Surgical History Surgery Date Site/Laterality Comments CORONARY ARTERY BYPASS GRAFT 3v TOTAL ABDOMINAL HYSTERECTOMY W/ BILATERAL for pelvic prolapse SALPINGOOPHORECTOMY Medical History Medical History Date Comments Diabetes mellitus (HCC) Celiac disease 2015 Hypertension Hyperlipidemia CAD (coronary artery disease) PUD (peptic ulcer disease) 11/2016 BRY[place] (obstructive sleep apnea) Depression Fatty liver 11/2016 mild Vitamin D deficiency Family History Medical History Relation Name Comments Diabetes Father Relation Name Status Comments Father Social History Tobacco Use Types Packs/Day Years Used Date Former Smoker Quit: 01/04/19 88 Smokeless Tobacco: Never Used Comments: up to 1ppd x 15 -20 years Alcohol Use Drinks/Week oz/Week Comments No Sex Assigned at Date Recorded Not on file Last Filed Vital Signs Not on file Plan of Treatment Health Maintenance Due Date Last Done Comments SHINGLES VACCINES (#2) 12/22/2015 10/22/2015 DIABETIC FOOT EXAM 12/01/2018 12/01/2017, 01/04/2017 DIABETES: RETINAL EYE EXAM 08/17/2019 08/17/2017, 8, 08/03/2015, Additional history exists INFLUENZA VACCINE 02/15/2020 03/07/2018, 03/07/2018, 2017, Additional history exists 65+ PNEUMOCOCCAL VACCINE Completed 10/22/2015, 04/25/2008 Results Not on fileafter 06/07/2019 Insurance Payer Benefit Plan / Subscriber ID Effective Phone Address T ype Group Dates MEDICARE MEDICARE PART A [id number] 2006-Pres [place], [place] Medicare AND B ent COMMERCIAL MISC MISC COMMERCIAL [id number] 2018-Pre Commercial sent Advance Directives For more information, please contact: [phone] Type Date Recorded 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
[2020-06-07] MEDS ORDERED: NA CHLORIDE 0.9% 1,000 ML ONE ×2 (21:14→23:38)
[2020-06-07] MEDS ORDERED: CEFTRIAXONE/SWI 1gm 1 GM/10 ML SYR ONE (21:14)
[2020-06-07 21:22] LABS: Urine Bacteria >50 /HPF (<20)
[2020-06-07 21:24] LABS: Urine Blood 2+ (NEG); Urine Glucose NEGATIVE (NEG); Urine Protein 2+ (NEG); Urine pH 5.5 (5.0-7.0)
--- NOTE | 2020-06-07 21:24 | RAD REPORT ---
EXAM DESCRIPTION: RAD - Chest Single View - 06/07/2020 9:08 pm CLINICAL HISTORY: FEVER Chest pain. COMPARISON: Chest Single View dated 09/03/2019 FINDINGS: Portable technique limits examination quality. The lungs are grossly clear. The heart is normal in size. No displaced fractures.Sternotomy wires. IMPRESSION: No acute intrathoracic process suspected.
[2020-06-07 21:44] LABS: Absolute Lymphocytes (CBC) 0.9 K/uL (0.7-4.9); Basophils % 0.5 % (0-1.3); Hematocrit 40.2 % (36.0-45.0); Lymphocytes % 6.2 % (15.3-44.8); MPV 9.3 fL (7.6-11.3); RBC Red Blood Cell Count 4.45 M/uL (3.86-4.86)
[2020-06-07 21:48] LABS: Protime INR 0.97
[2020-06-07 22:05] LABS: ALT/SGPT 20 U/L (12-78); AST/SGOT 22 U/L (15-37); Alkaline Phosphatase 138 U/L (45-117); Amylase 85 U/L (25-115); BUN Blood Urea Nitrogen 27 mg/dL (7-18); Bicarbonate 23 mmol/L (21-32); Bilirubin Direct 0.2 mg/dL (0-0.2); Bilirubin Total 0.5 mg/dL (0.2-1.0); CKMB Creatine Kinase MB < 1.0 ng/mL (0.3-3.6); Creatine Phosphokinase 44 U/L (26-192); Glucose Level 150 mg/dL (74-106); Lipase 331 U/L (73-393); Potassium 3.6 mmol/L (3.5-5.1); Protein, Total 7.5 g/dL (6.4-8.2); Sodium Level 140 mmol/L (136-145); Troponin (Emerg Dept Use Only) < 0.02 ng/mL (0.0-0.045)
[2020-06-07 22:50] LABS: Blood Morphology Comment NOT SEEN (NOT SEEN); Platelet Estimate ADEQ
[2020-06-07] MEDS ORDERED: ACETAMINOPHEN 325 MG TABLET ONE (22:58)
[2020-06-07] MEDS ORDERED: ONDANSETRON 4 MG/2 ML VIAL ONE (23:02)
[2020-06-07] MEDS ORDERED: METOCLOPRAMIDE 10 MG/2mL INJ ONE (23:38)
--- NOTE | 2020-06-08 00:57 | EDPHYS ---
Physician Documentation [facility] Name: Michaela Matias Age: 79 yrs Sex: Female : 1940 Arrival Date: 06/07/2020 Time: 20:13 Bed 13 Private MD: ED Physician Isaías sEpinosa HPI: 06/07 21:00 This 79 yrs old Female presents to ER via Wheelchair with complaints of mh7 Nausea/Vomiting, Urinary Problem, Chills, Altered Mental Status. 21:00 The patient presents to the emergency department with nausea, that is moderate, mh7 vomiting, that is intermittent, abdominal pain, of the suprapubic area, described as intermittent, 21:02 Onset: The symptoms/episode began/occurred yesterday. Possible causes: Family suspects mh7 UTI. The symptoms are aggravated by nothing. The symptoms are alleviated by nothing. Associated signs and symptoms: Pertinent positives: abdominal pain, dysuria, nausea, vomiting, Confusion, Pertinent negatives: anorexia, constipation, diarrhea, fever, flatulence, GI bleeding, hematuria. Severity of symptoms: At their worst the symptoms were moderate today, in the emergency department the symptoms are unchanged. Unable to obtain HPI due to baseline dementia. The patient has experienced similar episodes in the past, several times. 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 - Social history:: Smoking status: Patient denies any tobacco usage or history of. ROS: 23:38 Unable to obtain ROS due to baseline dementia. mh7 Exam: 23:38 Head/Face: Normocephalic, atraumatic. Eyes: Pupils equal round and reactive to light, mh7 extra-ocular motions intact. Lids and lashes normal. Conjunctiva and sclera are non-icteric and not injected. Cornea within normal limits. Periorbital areas with no swelling, redness, or edema. Neck: Trachea midline, no thyromegaly or masses palpated, and no cervical lymphadenopathy. Supple, full range of motion without nuchal rigidity, or vertebral point tenderness. No Meningismus. Chest/axilla: Normal chest wall appearance and motion. Nontender with no deformity. No lesions are appreciated. 23:38 Respiratory: Lungs have equal breath sounds bilaterally, clear to auscultation and percussion. No rales, rhonchi or wheezes noted. No increased work of breathing, no retractions or nasal flaring. Abdomen/GI: Soft, non-tender, with normal bowel sounds. No distension or tympany. No guarding or rebound. No evidence of tenderness throughout. Back: No spinal tenderness. No costovertebral tenderness. Full range of motion. Skin: Warm, dry with normal turgor. Normal color with no rashes, no lesions, and no evidence of cellulitis. MS/ Extremity: Pulses equal, no cyanosis. Neurovascular intact. Full, normal range of motion. Neuro: Awake and alert, GCS 15, oriented to person, place, time, and situation. Cranial nerves II-XII grossly intact. Motor strength 5/5 in all extremities. Sensory grossly intact. Cerebellar exam normal. Normal gait. Psych: Awake, alert, with orientation to person, place and time. Behavior, mood, and affect are within normal limits. 23:38 Constitutional: The patient appears in no acute distress, alert, awake, uncomfortable. 23:38 Cardiovascular: Rate: tachycardic, Rhythm: regular, Pulses: no pulse deficits are appreciated, Heart sounds: normal, normal S1and S2, Edema: is not appreciated, JVD: is not appreciated. Vital Signs: 20:30 BP 159 / 106; Pulse 111; Resp 20; Temp 99.8; Pulse Ox 92% on R/A; Weight 54.43 kg; ll1 Height 5 ft. 2 in. (157.48 cm); Pain 6/10; 22:15 BP 148 / 95; Pulse 95; Resp 19; Temp 99.4; Pulse Ox 98% ; rr5 22:53 BP 161 / 85; Pulse 111; Resp 26; Temp 102.8; Pulse Ox 100% ; rr5 06/08 00:27 BP 131 / 60; Pulse 116; Resp 24; Temp 101.6; Pulse Ox 99% on 3 lpm NC; rr5 01:19 BP 121 / 54; Pulse 110; Resp 20; Temp 100; Pulse Ox 99% on 4 lpm NC; rr5 01:39 BP 91 / 55; Pulse 96; Resp 17; Temp 100; Pulse Ox 96% on 4 lpm NC; rr5 01:55 BP 92 / 52; Pulse 98; Resp 15; Temp 99.1; Pulse Ox 98% on 3 lpm NC; rr5 02:36 BP 103 / 55; Pulse 102; Resp 20; Pulse Ox 98% on 3 lpm NC; rr5 03:00 BP 99 / 57; Pulse 98; Resp 16; Pulse Ox 98% on 3 lpm NC; rr5 06/07 20:30 Body Mass Index 21.95 (54.43 kg, 157.48 cm) ll1 MDM: 00:53 Differential diagnosis: Nonspecific abd pain, gastritis, cholecystitis, pancreatitis, mh7 appendicitis, diverticulitis, UTI, Pyelonephritis. Data reviewed: vital signs, nurses notes, lab test result(s), cardiac enzymes, CBC, electrolytes, urinalysis, EKG, radiologic studies, CT scan, plain films. Data interpreted: Pulse oximetry: on room air is 99 %. Interpretation: normal. Counseling: I had a detailed discussion with the patient and/or guardian regarding: the historical points, exam findings, and any diagnostic results supporting the discharge/admit diagnosis, lab results, radiology results, the need for further work-up and treatment in the hospital. Response to treatment: the patient's symptoms have mildly improved after treatment. 00:56 Patient medically screened. [facility] 06/07 20:49 Order name: Amylase, Serum [facility] 06/07 20:49 Order name: Basic Metabolic Panel [facility] 06/07 20:49 Order name: Blood Culture Adult (2) [facility] 06/07 20:49 Order name: CBC with Diff [facility] 06/07 20:49 Order name: Ckmb [facility] 06/07 20:49 Order name: CPK [facility] 06/07 20:49 Order name: Lactate [facility] 06/07 20:49 Order name: LFT's; Complete Time: 22:23 [facility] 06/07 20:49 Order name: Lipase; Complete Time: 22:23 [facility] 06/07 20:49 Order name: Procalcitonin; Complete Time: 22:23 [facility] 06/07 20:49 Order name: Protime (+inr); Complete Time: 22:23 [facility] 06/07 20:49 Order name: Ptt, Activated; Complete Time: 22:23 [facility] 06/07 20:49 Order name: Troponin (emerg Dept Use Only); Complete Time: 22:23 [facility] 06/07 20:49 Order name: Urine Microscopic Only; Complete Time: 21:32 [facility] 06/07 20:49 Order name: Chest Single View XRAY; Complete Time: 21:32 [facility] 06/07 20:49 Order name: Influenza Screen (a \T\ B); Complete Time: 22:23 [facility] 06/07 20:50 Order name: Amylase; Complete Time: 22:23 [facility] 06/07 20:50 Order name: Basic Metabolic Panel; Complete Time: 22:23 [facility] 06/07 20:50 Order name: Blood Culture [facility] 06/07 20:50 Order name: CBC with Automated Diff; Complete Time: 23:11 [facility] 06/07 20:50 Order name: CKMB Creatine Kinase MB; Complete Time: 22:23 [facility] 06/07 20:50 Order name: Creatine Phosphokinase; Complete Time: 22:23 [facility] 06/07 20:50 Order name: Lactate; Complete Time: 22:23 [facility] 06/07 20:56 Order name: Urine Dipstick--Ancillary (enter results); Complete Time: 21:32 [facility] 06/07 20:57 Order name: Urine Culture [facility] 06/07 21:39 Order name: Glucose, Ancillary Testing; Complete Time: 21:45 [facility] 06/07 21:47 Order name: Manual Differential; Complete Time: 23:11 [facility] 06/07 22:24 Order name: CT Head Brain wo Cont [facility] 06/08 00:52 Order name: SARS-COV-2 RT PCR; Complete Time: 01:12 [facility] 06/07 20:49 Order name: Accucheck; Complete Time: 21:32 [facility] 06/07 20:49 Order name: Cardiac monitoring; Complete Time: 21:32 [facility] 06/07 20:49 Order name: EKG - Nurse/Tech; Complete Time: 22:18 [facility] 06/07 20:49 Order name: IV Saline Lock - Large Bore; Complete Time: 21:31 [facility] 06/07 20:49 Order name: Labs collected and sent; Complete Time: 21:31 [facility] 06/07 20:49 Order name: O2 Per Protocol; Complete Time: 21:31 [facility] 06/07 20:49 Order name: O2 Sat Monitoring; Complete Time: 21:32 [facility] 06/07 20:49 Order name: Urine Dipstick-Ancillary (obtain specimen); Complete Time: 21:32 [facility] 06/07 22:24 Order name: CT Abd/Pelvis - Without Contrast [facility] Administered Medications: 06/07 21:24 Drug: NS 0.9% (30 ml/kg) 30 ml/kg Route: IV; Rate: bolus; Site: left antecubital; rr5 06/08 01:30 Follow up: Response: No adverse reaction; IV Status: Completed infusion; IV Intake: rr5 1630ml 06/07 21:30 Drug: Rocephin - (cefTRIAXone) 1 grams Route: IVPB; Infused Over: 30 mins; Site: left rr5 antecubital; 22:00 Follow up: Response: No adverse reaction; IV Status: Completed infusion; IV Intake: [id number] 22:52 Drug: Tylenol 650 mg Route: PO; rr5 23:50 Follow up: Response: No adverse reaction; Temperature is decreased rr5 22:52 Drug: Zofran (Ondansetron) 4 mg Route: IVP; Site: left antecubital; rr5 23:50 Follow up: Response: No adverse reaction; No change in condition rr5 23:34 Drug: Reglan 10 mg Route: IVP; Site: left antecubital; rr5 06/08 00:30 Follow up: Response: No adverse reaction rr5 01:57 Drug: NS 0.9% 500 ml Route: IV; Rate: bolus; Site: left antecubital; rr5 02:39 Follow up: Response: No adverse reaction; Blood pressure is lowered; IV Status: rr5 Completed infusion; IV Intake: 500ml Disposition: 06/08/20 00:56 Hospitalization ordered by Richy Dsouza for Inpatient Admission. Preliminary diagnosis are Pyelonephritis, Sepsis. - Bed requested for Intensive Care Unit. - Status is Inpatient Admission. mw2 - Condition is Stable. - Problem is new. - Symptoms have improved. Signatures: Dispatcher [employer] EDKelli Nice RN RN Lester Fernandez, LUCIO-C CASINO MANAGER-Cla1 Angella Overton mw2 Michael Stephenson RN RN rr5 Madison Alberts RN RN 1 Isaías Espinosa MD MD 7 Corrections: (The following items were deleted from the chart) 06/07 23:45 23:15 CORONAVIRUS+MR.LAB.BRZ ordered. EDOH EDOH 06/08 01:31 00:56 Hospitalization Ordered by Richy Dsouza for Inpatient Admission. Preliminary dw diagnosis is Pyelonephritis; Sepsis. Bed requested for Telemetry/MedSurg (Inpatient). Status is Inpatient Admission. Condition is Stable. Problem is new. Symptoms have improved. 7 02:35 01:31 06/08/2020 00:56 Hospitalization Ordered by Richy Dsouza for Inpatient dw Admission. Preliminary diagnosis is Pyelonephritis; Sepsis. Bed requested for Telemetry/MedSurg (Inpatient). Status is Inpatient Admission. Condition is Stable. Problem is new. Symptoms have improved. dw 02:49 02:35 06/08/2020 00:56 Hospitalization Ordered by Richy Dsouza for Inpatient la1 Admission. Preliminary diagnosis is Pyelonephritis; Sepsis. Bed requested for Intensive Care Unit. Status is Inpatient Admission. Condition is Stable. Problem is new. Symptoms have improved. dw 03:05 02:49 06/08/2020 00:56 Hospitalization Ordered by Richy Dsouza for Inpatient mw2 Admission. Preliminary diagnosis is Pyelonephritis; Sepsis. Bed requested for Intensive Care Unit. Status is Inpatient Admission. Condition is Stable. Problem is new. Symptoms have improved. la1 03:05 03:05 06/08/2020 00:56 Hospitalization Ordered by Richy Dsouza for Inpatient mw2 Admission. Preliminary diagnosis is Pyelonephritis; Sepsis. Bed requested for Intensive Care Unit. Status is Inpatient Admission. Condition is Stable. Problem is new. Symptoms have improved. mw2
--- NOTE | 2020-06-08 00:57 | ER ---
Nurse's Notes [facility] Name: Michaela Matias Age: 79 yrs Sex: Female : 1940 Arrival Date: 06/07/2020 Time: 20:13 Bed 13 Private MD: Diagnosis: Pyelonephritis;Sepsis Presentation: 06/07 20:30 Chief complaint: Patient states: Complained of abdominal pain yesterday. Urinary ll1 frequency, N/V, chills, and AMS started today. Coronavirus screen: Client denies travel out of the [place] in the last 14 days. nausea, vomiting. Client presents with at least one sign or symptom that may indicate coronavirus-19. Standard/surgical mask placed on the client. Ebola Screen: Patient denies travel to an Ebola-affected area in the 21 days before illness onset. Initial Sepsis Screen: Does the patient meet any 2 criteria? Altered Mental Status. HR > 90 bpm. Yes Does the patient have a suspected source of infection? Yes: Dysuria/Frequency/Urgency/UTI. Risk Assessment: Do you want to hurt yourself or someone else? Patient reports no desire to harm self or others. Onset of symptoms was June 06, 2020. 20:30 Method Of Arrival: Wheelchair ll1 20:30 Acuity: ROSALBA 2 ll1 Triage Assessment: 20:30 General: Appears in no apparent distress. comfortable, Behavior is calm, cooperative, rr5 appropriate for age. 20:30 GI: Reports nausea, vomiting, stated by son. 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 - Social history:: Smoking status: Patient denies any tobacco usage or history of. Screenin:15 Abuse screen: Denies threats or abuse. Denies injuries from another. Nutritional rr5 screening: No deficits noted. Tuberculosis screening: No symptoms or risk factors identified. Fall Risk IV access (20 points). Gait- Weak (10 pts.). Total Renee Fall Scale indicates Low Risk Score (25-44 pts). Fall prevention measures have been instituted. Side Rails Up X 2 Frequent Obs/Assesments occuring Family Present and informed to notify staff if they need to leave bedside As available Patient and Family Educated on Fall Prevention Program and strategies. Assessment: 20:30 General: Appears in no apparent distress. uncomfortable, Behavior is calm, cooperative, rr5 Reports chills for feeling ill for. GI: Abdomen is. 20:30 Pain: Unable to use pain scale. Patient appears quiet. Neuro: Level of Consciousness is rr5 awake, alert, obeys commands, Oriented to person, place, situation. Cardiovascular: Capillary refill < 3 seconds Patient's skin is warm and dry. Respiratory: Airway is patent Respiratory effort is even, unlabored, Respiratory pattern is regular, symmetrical. GI: Abdomen is round non-distended, Parent/caregiver reports the patient having nausea, vomiting, abdominal pain. : No signs and/or symptoms were reported regarding the genitourinary system. Parent/caregiver report the patient having urinary frequency. EENT: No signs and/or symptoms were reported regarding the EENT system. Derm: Skin is fragile, is thin, wound abrasion and skin peeledupper and lower extremities Skin temperature is warm. Musculoskeletal: Capillary refill < 3 seconds. 21:40 Reassessment: Patient appears in no apparent distress at this time. awaiting for rr5 results. 22:35 Reassessment:. General: Reports chills for feeling ill for feeling cold ED provider rr5 aware for the temp 102.5 F and feels nauseous. 23:30 Reassessment: ED provider informed patient continuously vomiting with order made and rr5 carried out Patient states symptoms have not improved. 06/08 00:00 Reassessment: Patient appears in no apparent distress at this time. Patient is alert, rr5 oriented x 3, equal unlabored respirations, skin warm/dry/pink. back from CTscan. 00:30 Reassessment: Patient appears in no apparent distress at this time. Patient states rr5 symptoms have improved. 01:00 Reassessment: hospitalist at bedside examining the patient. rr5 01:50 Reassessment: hospitalist called with telephone order to infuse 500ml of for the BP rr5 91/53mmHg. 02:37 Reassessment: Patient appears in no apparent distress at this time. Patient is alert, rr5 oriented x 3, equal unlabored respirations, skin warm/dry/pink. BP 103/55 mmHg hospitalist aware with order to transfer in ICU. 03:00 Reassessment: Patient appears in no apparent distress at this time. Patient is alert, rr5 oriented x 3, equal unlabored respirations, skin warm/dry/pink. transferred to ICU Patient states feeling better. Patient states symptoms have improved. Vital Signs: 06/07 20:30 BP 159 / 106; Pulse 111; Resp 20; Temp 99.8; Pulse Ox 92% on R/A; Weight 54.43 kg; ll1 Height 5 ft. 2 in. (157.48 cm); Pain 6/10; 22:15 BP 148 / 95; Pulse 95; Resp 19; Temp 99.4; Pulse Ox 98% ; rr5 22:53 BP 161 / 85; Pulse 111; Resp 26; Temp 102.8; Pulse Ox 100% ; rr5 06/08 00:27 BP 131 / 60; Pulse 116; Resp 24; Temp 101.6; Pulse Ox 99% on 3 lpm NC; rr5 01:19 BP 121 / 54; Pulse 110; Resp 20; Temp 100; Pulse Ox 99% on 4 lpm NC; rr5 01:39 BP 91 / 55; Pulse 96; Resp 17; Temp 100; Pulse Ox 96% on 4 lpm NC; rr5 01:55 BP 92 / 52; Pulse 98; Resp 15; Temp 99.1; Pulse Ox 98% on 3 lpm NC; rr5 02:36 BP 103 / 55; Pulse 102; Resp 20; Pulse Ox 98% on 3 lpm NC; rr5 03:00 BP 99 / 57; Pulse 98; Resp 16; Pulse Ox 98% on 3 lpm NC; rr5 06/07 20:30 Body Mass Index 21.95 (54.43 kg, 157.48 cm) ll1 ED Course: 06/07 20:13 Patient arrived in ED. cf2 20:30 Patient has correct armband on for positive identification. Placed in gown. Bed in low rr5 position. Call light in reach. Side rails up X2. nuclear monitoring technician on. Pulse ox on. NIBP on. 20:30 Urine collected: clean catch specimen, cloudy, sharan colored. jp3 20:31 Triage completed. ll1 20:32 Arm band placed on Patient placed in an exam room, on a stretcher. ll1 20:33 Isaías Espinosa MD is Attending Physician. mh7 20:39 Patient sepsis alert called to er room 13. ll1 20:53 Ladarius Stephenson, RN is Primary Nurse. rr5 21:08 Chest Single View XRAY In Process Unspecified. EDMS 21:24 First set of blood cultures drawn by me. Inserted saline lock: 20 gauge in left rr5 antecubital area, using aseptic technique. Blood collected. 22:50 Radiology exam delayed due to p not ready. ladarius to call when pt is ready for CT. mw3 informed Dr. Espinosa. 23:30 covid. rr5 06/08 00:19 CT Head Brain wo Cont In Process Unspecified. EDMS 00:19 CT Abd/Pelvis - Without Contrast In Process Unspecified. EDMS 00:56 Richy Dsouza is Hospitalizing Provider. mh7 02:38 No provider procedures requiring assistance completed. Patient admitted, IV remains in rr5 place. intact, No redness/swelling at site. Administered Medications: 06/07 21:24 Drug: NS 0.9% (30 ml/kg) 30 ml/kg Route: IV; Rate: bolus; Site: left antecubital; rr5 06/08 01:30 Follow up: Response: No adverse reaction; IV Status: Completed infusion; IV Intake: rr5 1630ml 06/07 21:30 Drug: Rocephin - (cefTRIAXone) 1 grams Route: IVPB; Infused Over: 30 mins; Site: left rr5 antecubital; 22:00 Follow up: Response: No adverse reaction; IV Status: Completed infusion; IV Intake: [id number] 22:52 Drug: Tylenol 650 mg Route: PO; rr5 23:50 Follow up: Response: No adverse reaction; Temperature is decreased rr5 22:52 Drug: Zofran (Ondansetron) 4 mg Route: IVP; Site: left antecubital; rr5 23:50 Follow up: Response: No adverse reaction; No change in condition rr5 23:34 Drug: Reglan 10 mg Route: IVP; Site: left antecubital; rr5 06/08 00:30 Follow up: Response: No adverse reaction rr5 01:57 Drug: NS 0.9% 500 ml Route: IV; Rate: bolus; Site: left antecubital; rr5 02:39 Follow up: Response: No adverse reaction; Blood pressure is lowered; IV Status: rr5 Completed infusion; IV Intake: 500ml Intake: 06/07 22:00 IV: 50ml; Total: 50ml. rr5 06/08 01:30 IV: 1630ml; Total: 1680ml. rr5 02:39 IV: 500ml; Total: 2180ml. rr5 Outcome: 00:56 Decision to Hospitalize by Provider. mh7 03:00 Admitted to ICU accompanied by nurse, via stretcher, room room 10 ER ICU, with oxygen, rr5 with chart, Report called to damian 03:00 Condition: stable 03:00 Instructed on the need for admit. 03:05 Patient left the ED. mw2 Signatures: Dispatcher [employer] EDMS Angella Overton mw2 Hetal Martines mw3 Matt Ramirez jp3 Ladarius Stephenson RN RN rr5 Finn Hope 2 Madison Alberts RN RN 1 Isaías Espinosa MD MD 7 Corrections: (The following items were deleted from the chart) 06/07 20:39 20:30 Initial Sepsis Screen: Does the patient meet any 2 criteria? HR > 90 bpm. No. ll1 Patient's initial sepsis screen is negative. Does the patient have a suspected source of infection? Yes: Dysuria/Frequency/Urgency/UTI ll1 06/08 03:23 06/07 20:30 GI: Abdomen is round non-distended, Parent/caregiver reports the patient rr5 having nausea, vomiting, rr5
--- NOTE | 2020-06-08 01:56 | P.HP ---
Certification for Inpatient Patient admitted to: Inpatient With expected LOS: >2 Midnights Patient will require the following post-hospital care: None Practitioner: I am a practitioner with admitting privileges, knowledge of patient current condition, hospital course, and medical plan of care. Services: Services provided to patient in accordance with Admission requirements found in Title 42 Section 412.3 of the Code of Federal Regulations <Lester Powell - Last Filed: 06/08/20 01:52> Patient History Date of Service: 06/08/20 Primary Care Provider: Dr. Holly Reason for admission: Pyelonephritis History of Present Illness: 71-year-old female with history of hypertension, hyperlipidemia, CKD 3 presents emergency department for fever, chills, urinary symptoms. Patient reports that she has had urinary frequency, urgency, dysuria for the course of the last 1 week. Patient has not been on any antibiotics. Patient was febrile and tachycardic in the emergency department, heart rate as high as 140, temperature max 102.3. Lab significant for stable CKD 3, GFR 35, creatinine 1.45. White blood cell count 14.3 with left shift, hemoglobin 13, hematocrit 40. CT abdomen pelvis shows right-sided pyelonephritis, patient without CVA tenderness at this time. Blood cultures obtained in the ED lactate initially was 1.2 pro calcitonin 0.46. Urine positive for nitrates, leukocytes, white blood cell, bacteria. Patient was given sepsis fluid bolus in the ED which equated to about 1.6 L. started on Rocephin. When I saw the patient in the emergency department she is awake, alert, oriented x3. Patient's son was at bedside. Discussed plan of care with both son and patient who were amendable. When discussing code status. Patient stated that she did not wish to be resuscitated, she had not previously discussed this with anybody but she was picture of her wishes, son at bedside witnessed this and is agreeable. Will admit for further evaluation and management. - Past Medical/Surgical History Diabetic: No -: CAD -: HTN -: Vascular Dementia -: "I used to be a diabetic " they took me off my medicine" -: CABG - tripple 20 yrs ago -: hysterectomy -: L lumpectomy Psychosocial/ Personal History: Patient lives with her son. - Family History Mother -: Cancer - Social History Alcohol use: No CD- Drugs: No Caffeine use: Yes Place of Residence: Home <SamelizabethLester - Last Filed: 06/08/20 01:52> Date of Service: 06/08/20 <marika schmidt - Last Filed: 06/08/20 12:25> Allergies meperidine [From Demerol] Allergy (Verified 09/03/19 14:37) Nausea/Vomiting Home Medications: Donepezil HCl [Aricept] 50 mg PO BEDTIME 09/03/19 Fluoxetine HCl [Prozac] 40 mg PO BEDTIME 09/03/19 Mirtazapine [Remeron] 15 mg PO BEDTIME 09/03/19 Rosuvastatin Calcium 40 mg PO BEDTIME 09/03/19 Ondansetron [Zofran (Odt)*] 4 mg PO Q6H PRN #10 tab 09/04/19 Pantoprazole [Protonix Tab*] 40 mg PO DAILY #30 tab 09/04/19 Cefpodoxime Proxetil 100 mg PO BID #10 tablet 06/08/20 Lisinopril [Zestril] 2.5 mg PO DAILY #30 tablet 06/08/20 carvediloL [Coreg] 3.125 mg PO DAILY #60 tab 06/08/20 Review of Systems General: Fever, Chills, Weakness, Malaise Genitourinary: Dysuria, Frequency, Urgency <Lester Powell - Last Filed: 06/08/20 01:52> Physical Examination - Physical Exam General: Alert, In no apparent distress HEENT: Atraumatic, PERRLA, Other (Mucous membranes dry) Neck: Supple, 2+ carotid pulse no bruit, No LAD Respiratory: Clear to auscultation bilaterally, Normal air movement Cardiovascular: Normal S1 S2, Irregular heart rate/rhythm (Tachycardia rate 110) Gastrointestinal: Normal bowel sounds, No tenderness Musculoskeletal: No tenderness, Other (No CVA tenderness) Integumentary: No rashes Neurological: Normal speech, Normal strength at 5/5 x4 extr, Normal tone, Normal affect - Studies Laboratory Data (last 24 hrs) 06/07/20 21:24: PT 11.5, INR 0.97, APTT 23.6 L 06/07/20 21:24: WBC 14.3 H, Hgb 13.4, Hct 40.2, Plt Count 242 06/07/20 21:24: Sodium 140, Potassium 3.6, BUN 27 H, Creatinine 1.45 H, Glucose 150 H, Total Bilirubin 0.5, AST 22, ALT 20, Alkaline Phosphatase 138 H, Amylase 85, Lipase 331 Microbiology Data (last 24 hrs): 06/07/20 21:09 Nasopharnyx Influenza Type A Antigen Screen - Final 06/07/20 21:09 Nasopharnyx Influenza Type B Antigen Screen - Final <Lester Powell - Last Filed: 06/08/20 01:52> - Studies Laboratory Data (last 24 hrs) 06/07/20 21:24: PT 11.5, INR 0.97, APTT 23.6 L 06/07/20 21:24: WBC 14.3 H, Hgb 13.4, Hct 40.2, Plt Count 242 06/07/20 21:24: Sodium 140, Potassium 3.6, BUN 27 H, Creatinine 1.45 H, Glucose 150 H, Total Bilirubin 0.5, AST 22, ALT 20, Alkaline Phosphatase 138 H, Amylase 85, Lipase 331 Microbiology Data (last 24 hrs): 06/07/20 21:40 Blood - Blood Blood Culture Gram Stain - Final 06/07/20 21:40 Blood - Blood Gram Stain - Final 06/07/20 21:24 Blood - Blood Blood Culture Gram Stain - Final 06/07/20 21:24 Blood - Blood Gram Stain - Final 06/07/20 21:09 Nasopharnyx Influenza Type A Antigen Screen - Final 06/07/20 21:09 Nasopharnyx Influenza Type B Antigen Screen - Final <marika schmidt - Last Filed: 06/08/20 12:25> Assessment and Plan - Plan Assessment Sepsis secondary to pyelonephritis Hypertension Hyperlipidemia Vascular dementia Plan Sepsis secondary to pyelonephritis: Blood and urine cultures obtained, lactate within normal limits at this time Repeat lactate q 4h. Continue with aggressive hydration, IV antibiotics. Monitor on telemetry. P.r.n. pain and nausea medications, start with clear liquid diet advance as tolerated. Hypertension: Hold blood pressure medications at this time as patient is having some mild hypotension. Hyperlipidemia: Obtain and continue home meds Vascular dementia: Obtain and continue home medications. Patient is alert, oriented x3 at this time. Will have physical therapy evaluate patient as well. Discharge Plan: Home Plan to discharge in: 72 Hours - Advance Directives Does patient have a Living Will: No Does patient have a Durable POA for Healthcare: No - Code Status/Comfort Care Code Status Assessed: Yes (DNR) Critical Care: No Time Spent Managing Pts Care (In Minutes): 55 <Lester Powell - Last Filed: 06/08/20 01:52> Physician Review: Patient Assessed, Agree with Above Assessment and Plan Physician Review Additional Text: Septic shock Sepsis Acute pyelonephritis. Plan: Blood pressure improved. Aggressive antibiotic therapy-with IV Cefepime. Follow urine culture and blood cultures. <marika schmidt - Last Filed: 06/08/20 12:25>
[2020-06-08] MEDS ORDERED: NA CHLORIDE 0.9% 500 ML ONE (02:04)
[2020-06-08] MEDS ORDERED: NA CHLORIDE 0.9% 1,000 ML ONE ×2 (03:00→12:37)
[2020-06-08] MEDS ORDERED: ONDANSETRON 4 MG/2 ML VIAL IV PRN (03:19)
[2020-06-08] MEDS ORDERED: MORPHINE 2 MG/ML SYR IV PRN (03:19)
[2020-06-08] MEDS ORDERED: HYDROCODONE/APAP 5/325 MG TAB PO PRN (03:19)
[2020-06-08] MEDS ORDERED: NA CHLORIDE 0.9% 1,000 ML IV SCH (03:19)
[2020-06-08] MEDS ORDERED: CEFEPIME 1 GM/VIAL IVP ONE (04:00)
[2020-06-08] MEDS ORDERED: WATER FOR INJ,STERILE 10 ML IV ONE (04:00)
[2020-06-08 04:23] VITALS: BMI 21.9
--- NOTE | 2020-06-08 04:34 | P.INFCA ---
Sepsis Focused Assessment - Focused Assessment Complete? Sepsis Focused Assessment Completed?: Yes - Sepsis Screen Result Severe Sepsis: Positive Septic Shock: Negative - Evaluation Current stage of sepsis: Severe sepsis - Vital Signs Reviewed: Yes Temperature: 98.7 F Heart rate: 88 Blood Pressure: 114/57 Respiratory Rate: 18 O2 Sat by Pulse Oximetry: 99 - Examination Date exam was performed: 06/08/20 Time exam was performed: 04:32 Heart: Regular rate/rhythm (Mild tachycardia rate 105), S1, S2 Lungs: Clear bilaterally Peripheral pulses: 2+ Slightly diminished Peripheral pulse location: Radial Capillary refill: <2 Seconds Skin examination: Normal turgor
[2020-06-08 05:45] LABS: Absolute Lymphocytes (CBC) 0.8 K/uL (0.7-4.9); Basophils % 0.2 % (0-1.3); MPV 9.4 fL (7.6-11.3); RBC Red Blood Cell Count 3.67 M/uL (3.86-4.86)
[2020-06-08 06:00] LABS: Magnesium 1.9 mg/dL (1.8-2.4); Potassium 3.8 mmol/L (3.5-5.1)
[2020-06-08 06:27] LABS: Blood Morphology Comment NOT SEEN (NOT SEEN); Platelet Estimate ADEQ; Platelets, Giant FEW
[2020-06-08] MEDS ORDERED: ENOXAPARIN 30 MG/0.3 ML SQ ONE (07:52)
[2020-06-08] MEDS ORDERED: POTASSIUM 25 MEQ EFFERV TAB ONE (07:52)
[2020-06-08] MEDS ORDERED: POTASSIUM 25 MEQ EFFERV TAB PO ONE (08:00)
[2020-06-08] MEDS ORDERED: CEFEPIME/SWI 2gm 2 GM/20 ML SYR IVP SCH (09:00)
[2020-06-08] MEDS ORDERED: CEFEPIME 2 GM VIAL IV SCH (09:00)
[2020-06-08] MEDS: ENOXAPARIN 30 MG/0.3 ML SQ SCH (09:42)
[2020-06-08] MEDS: NA CHLORIDE 0.9% 1,000 ML IV SCH ×3 (09:43→21:52)
[2020-06-08] MEDS: CEFEPIME/SWI 1gm 10 ML IVP SCH (09:43)
--- NOTE | 2020-06-08 12:28 | P.PN ---
Date of Service: 06/08/20 Patient looking better. Seen sitting up in bed. Blood pressure remains sore with systolic in the high 90s. Blood cultures growing Gram negative rods. GNR bacteremia Increased IV NS rate. Continue IV Cefepime. Follow blood cultures. Repeat blood culture today.
--- NOTE | 2020-06-08 12:28 | RAD REPORT ---
EXAM DESCRIPTION: CT Head Without Intravenous Contrast CLINICAL HISTORY: The patient is 79 years old and is Female; CONFUSED TECHNIQUE: Axial computed tomography images of the head/brain without intravenous contrast. Sagitt al and coronal reformatted images were created and reviewed. This CT exam was performed using one o r more of the following dose reduction techniques: automated exposure control, adjustment of the mA and/or kV according to patient size, and/or use of iterative reconstruction technique. COMPARISON: No relevant prior studies available. FINDINGS: BRAIN: There is diffuse cerebral atrophy present, consistent with this patient's age. There is patchy hypoattenuation of the deep white matter which is non-specific, but most likely owing to chronic small vessel ischemic change in a patient of this age group. No intracranial hemorrhage , mass effect, or midline shift is seen. There are no extra-axial fluid collections. VENTRICLES: There is diffuse prominence of the ventricles, which is likely related to central at rophy. BONES/JOINTS: No acute fracture. SOFT TISSUES: Unremarkable. SINUSES: Unremarkable as visualized. No acute sinusitis. MASTOID AIR CELLS: Unremarkable as visualized. No mastoid effusion. ORBITS: Unremarkable as visualized. IMPRESSION: No acute intracranial findings. Electronically signed by: Nubia Mac MD 06/08/2020 12:28 AM MAINTENANCE APPRENTICE Due to temporary technical issues with the PACS/Fluency reporting system, reports are being signed by the in house radiologist without review as a courtesy to ensure prompt reporting. The interpreting r adiologist is fully responsible for the content of the report.
--- NOTE | 2020-06-08 12:29 | RAD REPORT ---
EXAM DESCRIPTION: CT Abdomen and Pelvis Without Intravenous Contrast CLINICAL HISTORY: The patient is 79 years old and is Female; ABD PAIN TECHNIQUE: Axial computed tomography images of the abdomen and pelvis without intravenous contrast. Sagittal and coronal reformatted images were created and reviewed. This CT exam was performed usi ng one or more of the following dose reduction techniques: automated exposure control, adjustment o f the mA and/or kV according to patient size, and/or use of iterative reconstruction technique. COMPARISON: No relevant prior studies available. FINDINGS: ARTIFACTS: The exam is suboptimal secondary to motion artifact. LUNG BASES: Unremarkable. No mass. No consolidation. ABDOMEN: LIVER: Homogeneous without focal mass. GALLBLADDER AND BILE DUCTS: No calcified stones. No ductal dilation. PANCREAS: Fatty infiltration the pancreas is present. No ductal dilation. SPLEEN: Unremarkable. ADRENALS: Unremarkable. No mass. KIDNEYS AND URETERS: Mild prominence of both renal pelves is noted. There is no obstructing britney l or ureteral calculus. Right perinephric stranding is noted. STOMACH AND BOWEL: The stomach is not well distended. The small bowel is relatively normal in ca liber. Minimal stool is noted within the right, transverse, and descending colon. A moderate amount o f stool is present within the rectosigmoid colon. There is a large rectal stool ball. PELVIS: APPENDIX: The appendix is normal in caliber without surrounding inflammation. BLADDER: Unremarkable. No stones. REPRODUCTIVE: The patient is status post hysterectomy. ABDOMEN and PELVIS: INTRAPERITONEAL SPACE: Unremarkable. No free air. No significant fluid collection. BONES/JOINTS: Multilevel degenerative change of the spine is present. Postsurgical change of the lumbar spine is noted. Spinal rods and pedicle screws from L4 through S1 are in place. SOFT TISSUES: The soft tissues are normal. VASCULATURE: Atherosclerosis of the vasculature is present. The vessels are normal in caliber. No abdominal aortic aneurysm. LYMPH NODES: Unremarkable. No enlarged lymph nodes. IMPRESSION: 1. Large rectal stool ball with moderate to large amount of stool in the rectosigmoid colon. No overt obstruction. 2. Right perinephric stranding. While findings are nonspecific, pyelonephritis can have this appear ance. Electronically signed by: Nubia Mac MD 06/08/2020 12:32 AM PACU NURSE Due to temporary technical issues with the PACS/Fluency reporting system, reports are being signed by the in house radiologist without review as a courtesy to ensure prompt reporting. The interpreting r adiologist is fully responsible for the content of the report.
[2020-06-09] MEDS: NA CHLORIDE 0.9% 1,000 ML IV SCH ×3 (00:30→08:30)
[2020-06-09 04:44] LABS: Absolute Lymphocytes (CBC) 3.1 K/uL (0.7-4.9); Basophils % 0.8 % (0-1.3); Hematocrit 34.4 % (36.0-45.0); MPV 9.8 fL (7.6-11.3); RBC Red Blood Cell Count 3.81 M/uL (3.86-4.86)
[2020-06-09] MEDS: ACETAMINOPHEN 325 MG TABLET PO PRN ×3 (04:46→17:12)
[2020-06-09 04:56] LABS: Potassium 3.5 mmol/L (3.5-5.1)
[2020-06-09] MEDS ORDERED: POTASSIUM CL SA 10 MEQ TAB PO ONE (09:00)
[2020-06-09] MEDS: ENOXAPARIN 30 MG/0.3 ML SQ SCH (09:35)
[2020-06-09] MEDS: CEFEPIME/SWI 1gm 10 ML IVP SCH (11:07)
--- NOTE | 2020-06-09 11:19 | P.PN ---
Subjective Date of Service: 06/09/20 Primary Care Provider: Dr. Holly Chief Complaint: Pyelonephritis Subjective: Improving (feeling better this morning, no nausea/vomiting, no abd pain, voiding without issue) Review of Systems 10-point ROS is otherwise unremarkable Physical Examination - Vital Signs Temperature: 97.3 F Blood Pressure: 196/83 Pulse: 87 Respirations: 23 Pulse Ox (%): 93 - Physical Exam General: Alert, In no apparent distress Cardiovascular: No edema, Regular rate/rhythm Gastrointestinal: Soft and benign, No tenderness Musculoskeletal: No tenderness Integumentary: No rashes Neurological: Normal speech, Normal affect - Studies Microbiology Data (last 24 hrs): 06/07/20 21:40 Blood - Blood Blood Culture Gram Stain - Final 06/07/20 21:40 Blood - Blood Gram Stain - Final 06/07/20 21:24 Blood - Blood Blood Culture Gram Stain - Final 06/07/20 21:24 Blood - Blood Gram Stain - Final Assessment & Plan Physician Review Additional Text: Sepsis secondary to pyelonephritis Hypotension Hyperlipidemia Vascular dementia Plan Sepsis secondary to pyelonephritis: -GNR bacteremia - cultures still pending. -leukocytosis improving -continue cefepime until cultures are back -doing well with PT/OT Hypotension: initially with hypotension, responded to IVF hydration, eating better, dc IVF Hyperlipidemia: continue home statin Vascular dementia: stable, continue home medications Dispo: anticipate dc home tomorrow after final cultures and continued improvement of symptoms / leukocytosis Time Spent Managing Pts Care (In Minutes): 30
[2020-06-09] MEDS: PANTOPRAZOLE 40MG TABLET PO SCH (14:02)
[2020-06-09] MEDS ORDERED: DONEPEZIL HCL 5 MG TAB PO SCH (21:00)
[2020-06-09] MEDS ORDERED: DONEPEZIL HCL PO SCH (21:00)
[2020-06-09] MEDS ORDERED: FLUOXETINE 20 MG CAP PO SCH (21:00)
[2020-06-09] MEDS ORDERED: ROSUVASTATIN 10 MG TAB PO SCH (21:00)
[2020-06-09] MEDS ORDERED: MIRTAZAPINE 15 MG TAB PO SCH (21:00)
[2020-06-10 05:48] LABS: Absolute Lymphocytes (CBC) 1.9 K/uL (0.7-4.9); Basophils % 0.8 % (0-1.3); Hematocrit 32.4 % (36.0-45.0); Lymphocytes % 17.1 % (15.3-44.8); MPV 9.6 fL (7.6-11.3); RBC Red Blood Cell Count 3.59 M/uL (3.86-4.86)
[2020-06-10 06:04] LABS: Magnesium 2.1 mg/dL (1.8-2.4); Potassium 3.6 mmol/L (3.5-5.1)
[2020-06-10 08:30] LABS: White Blood Cell Scan OK (OK)
[2020-06-10 08:34] LABS: Blood Morphology Comment NOT SEEN (NOT SEEN); Platelet Estimate ADEQ
[2020-06-10] MEDS ORDERED: POTASSIUM CL SA 10 MEQ TAB PO ONE (09:00)
[2020-06-10] MEDS: ENOXAPARIN 30 MG/0.3 ML SQ SCH (09:21)
[2020-06-10] MEDS: PANTOPRAZOLE 40MG TABLET PO SCH (09:21)
[2020-06-10] MEDS: CEFEPIME/SWI 1gm 10 ML IVP SCH (09:22)
[2020-06-10 09:36] VITALS: O2SAT 95
[2020-06-10 10:20] VITALS: TEMP 97.3
[2020-06-10] MEDS ORDERED: lisinopriL 5 MG TAB PO SCH (13:16)
[2020-06-10] MEDS ORDERED: carvediloL 3.125 MG TAB PO SCH (13:16)
[2020-06-10 14:27] VITALS: BP 155/69
--- NOTE | 2020-06-10 20:37 | P.DS ---
Admission Date: 06/08/20 Discharge Date: 06/10/20 Primary Care Provider: Dr. Holly Disposition: ROUTINE DISCHARGE Discharge Condition: GOOD Reason for Admission: Pyelonephritis Procedures: CXR (06/07): No acute intrathoracic process suspected. CT Head (06/07): No acute intracranial findings. CT Abd/Pelvis (06/07): 1. Large rectal stool ball with moderate to large amount of stool in the rectosigmoid colon. No overt obstruction. 2. Right perinephric stranding. While findings are nonspecific, pyelonephritis can have this appearance. Problem List Sepsis secondary to pyelonephritis Hypertension Hyperlipidemia Vascular dementia Brief History of Present Illness: 71yo female who presented to ED due to fever, chills, urinary frequency/urgency/dysuria for the past 1 week. Workup notable for SANDRINE and CT consistent with acute R-sided pyelonephritis. Hospital Course: She was admitted and treated with IV Antibiotics. Her leukocytosis peaked at 20.1 the day after admission. She was broadened out to cefepime, urine and blood cultures were positive for e.coli. She had improvement in her symptoms and was feeling back to her baseline, however she remained hospitalized until repeat blood cultures were negative [id number] (drawn on 06/08). On day of discharge her leukocytosis improved to 11, and her SANDRINE was resolved (Cr: 1.45 -> 1.04). She was discharged home with 12 days of augmentin (to complete 14 days total of antibiotics since negative blood culture). She was noted to be hypertensive and borderline tachycardic. She was started on carvedilol and lisinopril - to be continued on discharge. Vital Signs/Physical Exam: Temp Pulse Resp BP Pulse Ox 97.3 F 88 18 155/69 H 93 06/10/20 12:00 06/10/20 14:26 06/10/20 12:00 06/10/20 14:26 06/10/20 12:00 General: In no apparent distress, Oriented x3 HEENT: Sclerae nonicteric Respiratory: Clear to auscultation bilaterally Cardiovascular: No edema, Regular rate/rhythm Gastrointestinal: Soft and benign, No tenderness Integumentary: No erythema Neurological: Normal speech, Normal affect Laboratory Data at Discharge: WBC 11.0 K/uL (4.3-10.9) H 06/10/20 05:25 Hgb 11.0 g/dL (12.0-15.0) L 06/10/20 05:25 Hct 32.4 % (36.0-45.0) L 06/10/20 05:25 Plt Count 218 K/uL (152-406) 06/10/20 05:25 PT 11.5 SECONDS (9.5-12.5) 06/07/20 21:24 INR 0.97 06/07/20 21:24 APTT 23.6 SECONDS (24.3-36.9) L 06/07/20 21:24 Sodium 144 mmol/L (136-145) 06/10/20 05:25 Potassium 3.6 mmol/L (3.5-5.1) 06/10/20 05:25 BUN 13 mg/dL (7-18) 06/10/20 05:25 Creatinine 1.04 mg/dL (0.55-1.3) 06/10/20 05:25 Glucose 107 mg/dL (74-106) H 06/10/20 05:25 Phosphorus 3.8 mg/dL (2.5-4.9) 06/08/20 05:36 Magnesium 2.1 mg/dL (1.8-2.4) 06/10/20 05:25 Total Bilirubin 0.5 mg/dL (0.2-1.0) 06/07/20 21:24 AST 22 U/L (15-37) 06/07/20 21:24 ALT 20 U/L (12-78) 06/07/20 21:24 Alkaline Phosphatase 138 U/L (45-117) H 06/07/20 21:24 Amylase 85 U/L (25-115) 06/07/20 21:24 Lipase 331 U/L (73-393) 06/07/20 21:24 Home Medications: Donepezil HCl [Aricept] 50 mg PO BEDTIME 09/03/19 Fluoxetine HCl [Prozac] 40 mg PO BEDTIME 09/03/19 Mirtazapine [Remeron] 15 mg PO BEDTIME 09/03/19 Rosuvastatin Calcium 40 mg PO BEDTIME 09/03/19 Ondansetron [Zofran (Odt)*] 4 mg PO Q6H PRN #10 tab 09/04/19 Pantoprazole [Protonix Tab*] 40 mg PO DAILY #30 tab 09/04/19 Lisinopril [Zestril] 2.5 mg PO DAILY #30 tablet 06/08/20 carvediloL [Coreg] 3.125 mg PO DAILY #60 tab 06/08/20 Amox/Clavulanate [Augmentin 875-125 Tab*] 875 mg PO BID 12 Days #24 tab 06/10/20 New Medications: Amox/Clavulanate [Augmentin 875-125 Tab*] 875 mg PO BID 12 Days #24 tab carvediloL [Coreg] 3.125 mg PO DAILY #60 tab Lisinopril [Zestril] 2.5 mg PO DAILY #30 tablet Patient Discharge Instructions: follow up with PCP within 1 week. take augmentin 875mg for 12 more days, twice a day, for your UTI Diet: AHA Activity: Ad dwain Followup: Rodrick Holly MD [Primary Care Provider] - 1 Week Time spent managing pt's care (in minutes): 35
[2020-06-10] MEDS ORDERED: AMOX/K CLAV 875 MG TAB PO SCH (21:00)
== END 2020-06-10 16:26 | disposition home or self-care (01) | DRG 871 ==
LOC: ER 20:12 → ERHOLD 06-08 01:23 → 2ND 06-08 16:03
PROVIDERS: ADMIT Internal Medicine; ATTEND Hospitalist
DX: A41.51 Sepsis due to Escherichia coli [E. coli] (principal); R65.21 Severe sepsis with septic shock; N10 Acute pyelonephritis; N17.9 Acute kidney failure, unspecified; I12.9 Hypertensive chronic kidney disease with stage 1 through stage 4 chronic kidney disease, or unspecified chronic kidney disease; N18.30 Chronic kidney disease, stage 3 unspecified; I25.10 Atherosclerotic heart disease of native coronary artery without angina pectoris; F01.50 Vascular dementia, unspecified severity, without behavioral disturbance, psychotic disturbance, mood disturbance, and anxiety; E78.5 Hyperlipidemia, unspecified; Z88.5 Allergy status to narcotic agent; Z66 Do not resuscitate; Z90.710 Acquired absence of both cervix and uterus; Z79.899 Other long term (current) drug therapy; Z20.828 Contact with and (suspected) exposure to other viral communicable diseases
CPT/HCPCS: 36415; 70450; 71045; 74176; 80048; 80076; 81003; 81015; 82150; 82550; 82553; 82947; 83605; 83690; 83735; 84100; 84145; 84484; 85025; 85610; 85730; 87040; 87077; 87086; 87088; 87186; 87205; 87804; 93005; 96361; 96365; 96366; 96375; 97116; 97161; 99285; J0692; J0696; J1650; J2405; J2765; J7030; J7040; U0003

== ENCOUNTER 2020-10-07 07:16 | Emergency (ER) | payer MEDICARE ==
--- OUTSIDE RECORDS SUMMARY | 2020-10-07 07:20 | XMS REPORT | Continuity of Care Document ---
:1940 Author Organization [facility] t Address [address] [place] [address] Care Team Providers Name Role Phone Only, Test Attending Clinician Unavailable Naif ZHANG, Jeri Attending Clinician Problems This patient has no known problems. Allergies, Adverse Reactions, Alerts This patient has no known allergies or adverse reactions. Medications This patient has no known medications. Procedures This patient has no known procedures. Encounters Start End Encounter Admission Attending Care Care Encounter Source Date/Time Date/Time Type Type Clinicians Facility Department ID 2020-08-13 2020-08-13 Outpatient [facility] [id number] 00:00:00 00:00:[address] 2020-07-23 2020-07-23 Outpatient [facility] [id number] 00:00:00 00:00:[address] 2020-07-07 2020-07-07 Laboratory Only, [facility] [id number] 14:25:08 14:40:08 Only Test [place] [id number] [place] [id number] [place] [id number] [facility] 2020-07-07 2020-07-07 Telephone Naif [facility] [id number] 00:00:00 00:00:00 Tamia Byrd [id number] [place] [id number] [facility] [id number] [facility] [address] Results This patient has no known results.
--- NOTE | 2020-10-07 08:12 | RAD REPORT ---
EXAM DESCRIPTION: CT - Head Brain Wo Cont - 10/07/2020 7:53 am CLINICAL HISTORY: Headache COMPARISON: 2019 TECHNIQUE: Computed axial tomography of the head was obtained. IV contrast was not requested. All CT scans are performed using dose optimization technique as appropriate and may include automated exposure control or mA/KV adjustment according to patient size. FINDINGS: An intracranial bleed is not seen . Prominence of ventricles unchanged probably related to white matter atrophy. No extra-axial fluid collection is noted. Cerebral atrophy is noted. Fluid within the sinuses/ mastoids is not seen. IMPRESSION: No acute intracranial abnormality is seen. If patient's symptoms persist MRI of the bra in would be recommended.
[2020-10-07] MEDS ORDERED: MORPHINE 2 MG/ML SYR ONE (08:14)
[2020-10-07] MEDS ORDERED: ONDANSETRON 4 MG/2 ML VIAL ONE (08:14)
[2020-10-07 08:26] LABS: Absolute Lymphocytes (CBC) 1.3 K/uL (0.7-4.9); Basophils % 0.6 % (0-1.3); Hematocrit 40.2 % (36.0-45.0); Lymphocytes % 14.2 % (15.3-44.8); MPV 9.7 fL (7.6-11.3)
[2020-10-07 08:48] LABS: Potassium 3.8 mmol/L (3.5-5.1)
[2020-10-07] MEDS ORDERED: METOPROLOL TARTRATE 5 MG/5 ML INJ IV ONE ×2 (10:53→11:52)
[2020-10-07] MEDS ORDERED: KETOROLAC 30 MG/ML INJ ONE (11:24)
[2020-10-07] MEDS ORDERED: METOCLOPRAMIDE 10 MG/2mL INJ ONE (11:52)
[2020-10-07] MEDS ORDERED: cloNIDine HCL 0.1 MG TAB ONE (12:47)
--- NOTE | 2020-10-07 15:10 | RAD REPORT ---
EXAM DESCRIPTION: MRI - Brain Wo Cont - 10/07/2020 3:00 pm CLINICAL HISTORY: AMS and shaking COMPARISON: MRA Head Wo Cont dated 10/07/2020; Head Brain Wo Cont dated 10/07/2020 TECHNIQUE: Sagittal T1-weighted images were obtained along with axial PD, heavily T2-weighted and T2 -FLAIR images. Axial DWI and ADC mapping sequences were also obtained along with coronal heavily T2-w eighted images. FINDINGS: No intracranial hemorrhage, mass or acute infarction. There is no edema or shift of midlin e structures. No extra-axial fluid collections. Todd-matter/white matter junction is preserved. Signa l voids are seen as a normal finding in the major intracranial vessels. Patient has mild to moderate atrophy. Ventricles appear to be slightly out of proportion to the amount of volume loss. No transepe ndymal migration of CSF evident. Patient has had minimal chronic ischemic change in the cerebral whit e matter. No brainstem, thalamus or basal ganglia chronic ischemic changes seen. No globe or orbital content abnormality. No sella or supra sella mass. Mastoid air cells and paranasal sinuses are clear. IMPRESSION: No hemorrhage, acute infarction or other acute intracranial finding identifiable. Mild to moderate atrophy changes are present with ventricles appearing slightly out of proportion to the amount of volume loss. Correlation is needed with any history or exam findings of normal pressure hydrocephalus. Minimal chronic ischemic change in the cerebral white matter.
--- NOTE | 2020-10-07 15:15 | RAD REPORT ---
EXAM DESCRIPTION: MRI - MRA Head Wo Cont - 10/07/2020 2:51 pm CLINICAL HISTORY: Headache, weakness, dementia COMPARISON: MRI brain same date, CT head same date TECHNIQUE: Axial and coronal 3D [id number] image acquisition was performed. 3D rotational images were generated with source and reconstruction images reviewed. Horizontal and vertical axis rotation al views generated using MIP protocol. FINDINGS: No aneurysm or vascular malformation identifiable. Imaging acquisitions extend the full le ngth of the internal carotid arteries. There is no dissection or significant atherosclerotic changes identifiable. Vertebrobasilar vasculature is tortuous but without stenosis or significant vascular disease. Basilar artery does appear to terminate at the superior cerebellar arteries. Patient has large bilateral pos terior communicating arteries providing the supply to each posterior cerebral artery. This is a yoan l variant. Anterior communicating artery is seen. The anterior, middle and posterior cerebral arterie s show relatively mild atherosclerotic changes. No named branch occlusion or vasculitis. IMPRESSION: MRA Head imaging shows mild atherosclerotic change. No vasculitis, named branch occlusio n or other significant finding.
--- NOTE | 2020-10-07 18:36 | ER ---
Nurse's Notes [facility] Name: Michaela Matias Age: 80 yrs Sex: Female : 1940 Arrival Date: 10/07/2020 Time: 07:20 Bed 13 Private MD: Diagnosis: Headache;Essential (primary) hypertension Presentation: 10/07 07:31 Chief complaint: Patient states: headache to back of head that began yesterday morning. ss PT reports that she has had these headaches in the past, but it has been a while since the last one. Coronavirus screen: Client denies travel out of the [place] in the last 14 days. Ebola Screen: Patient denies exposure to infectious person. Patient denies travel to an Ebola-affected area in the 21 days before illness onset. Initial Sepsis Screen: Does the patient meet any 2 criteria? No. Patient's initial sepsis screen is negative. Does the patient have a suspected source of infection? No. Patient's initial sepsis screen is negative. Risk Assessment: Do you want to hurt yourself or someone else? Patient reports no desire to harm self or others. Onset of symptoms was October 06, 2020. 07:31 Method Of Arrival: Ambulatory ss 07:31 Acuity: ROSALBA 3 Triage Assessment: 07:45 Headache History: The patient has had previous headaches and this one is similar to bp previous episodes. General: Appears in no apparent distress. uncomfortable, Behavior is cooperative, appropriate for age, anxious. Pain: Complains of pain in left latter day and right latter day Pain currently is 6 out of 10 on a pain scale. Pain began 1 day ago. Also complains of no other associated symptoms. EENT: No deficits noted. Neuro: Reports headache. Cardiovascular: No deficits noted. Respiratory: No deficits noted. GI: No signs and/or symptoms were reported involving the gastrointestinal system. : No signs and/or symptoms were reported regarding the genitourinary system. Derm: No deficits noted. Musculoskeletal: No deficits noted. 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 - Social history:: Smoking status: Patient denies any tobacco usage or history of. Screenin:45 Abuse screen: Denies threats or abuse. Denies injuries from another. Nutritional bp screening: No deficits noted. Tuberculosis screening: No symptoms or risk factors identified. Fall Risk None identified. Assessment: 07:45 General: SEE TRIAGE NOTE. bp 08:00 Reassessment: PT RETURNED FROM CT. bp 09:51 Reassessment: No changes from previously documented assessment. Patient and/or family bp updated on plan of care and expected duration. Pain level reassessed. Patient is alert, oriented x 3, equal unlabored respirations, skin warm/dry/pink. ALL CURRENT ORDERS COMPLETE. 10:50 Reassessment: No changes from previously documented assessment. Patient and/or family bp updated on plan of care and expected duration. Pain level reassessed. Patient states symptoms have not improved. 12:00 Reassessment: No changes from previously documented assessment. Patient and/or family bp updated on plan of care and expected duration. Pain level reassessed. 13:00 Reassessment: No changes from previously documented assessment. Patient and/or family bp updated on plan of care and expected duration. Pain level reassessed. Patient states symptoms have improved. 15:00 Reassessment: PT RETURNED FROM MRI. RESULTS PENDING. bp 17:00 Reassessment: No changes from previously documented assessment. Patient and/or family bp updated on plan of care and expected duration. Pain level reassessed. STRAIGHT CATH IN PLACE. UA PENDING Patient states symptoms have improved. 18:57 Reassessment: PT D/C HOME VIA W/C WITH FAMILY, DX WITH HEADACHE AND HTN. bp Vital Signs: 07:31 BP 183 / 66; Pulse 95; Resp 17; Temp 97.8(TE); Pulse Ox 95% on R/A; Weight 50.35 kg; ss Height 5 ft. 1 in. (154.94 cm); Pain 6/10; 08:00 BP 188 / 57; Pulse 87; Resp 16; Pulse Ox 92% ; bp 09:50 BP 178 / 65; Pulse 81; Resp 17; Pulse Ox 95% ; bp 10:45 BP 187 / 61; Pulse 73; Resp 16; Pulse Ox 95% ; bp 11:03 BP 186 / 71; Pulse 79; Resp 16; Pulse Ox 92% ; bp 11:44 BP 166 / 64; Pulse 71; Resp 16; Pulse Ox 95% ; bp 12:43 BP 155 / 107; Pulse 72; Resp 17; Pulse Ox 95% ; bp 13:36 BP 142 / 50; Pulse 80; Resp 16; Pulse Ox 96% ; bp 15:30 BP 156 / 62; Pulse 64; Resp 17; Pulse Ox 96% ; bp 16:30 BP 152 / 63; Pulse 75; Resp 16; Pulse Ox 96% ; bp 17:30 BP 146 / 52; Pulse 68; Resp 17; Pulse Ox 97% ; bp 18:30 BP 136 / 53; Pulse 77; Resp 17; Pulse Ox 97% ; bp 07:31 Body Mass Index 20.97 (50.35 kg, 154.94 cm) ss [place] Coma Score: 18:36 Eye Response: spontaneous(4). Verbal Response: oriented(5). Motor Response: obeys maranda commands(6). Total: 15. ED Course: 07:20 Patient arrived in ED. as 07:28 Osito Brewster, RN is Primary Nurse. bp 07:29 Jovon Frazier MD is Attending Physician. kdr 07:33 Triage completed. ss 07:34 Arm band placed on right wrist. ss 07:45 Patient has correct armband on for positive identification. Bed in low position. Call bp light in reach. Side rails up X2. Adult w/ patient. 07:53 CT Head Brain wo Cont In Process Unspecified. EDMS 08:00 Inserted saline lock: 22 gauge in right antecubital area, using aseptic technique. bp Blood collected. 14:37 MRA Head Wo Cont In Process Unspecified. EDMS 14:46 MRI - Brain Wo Cont In Process Unspecified. EDMS 18:17 Attending Physician role handed off by Jovon Frazier MD maranda 18:17 Chinedu Armenta MD is Attending Physician. maranda 18:34 Bret Huber MD is Referral Physician. maranda 18:59 No provider procedures requiring assistance completed. IV discontinued, intact, bp bleeding controlled, No redness/swelling at site. Pressure dressing applied. Administered Medications: 08:00 Drug: Zofran (Ondansetron) 4 mg Route: IVP; Site: right antecubital; bp 10:51 Follow up: Response: No adverse reaction bp 08:00 Drug: morphine 2 mg Route: IVP; Site: right antecubital; bp 10:51 Follow up: Response: No adverse reaction; Pain is decreased bp 10:30 Drug: Lopressor 2.5 mg Route: IVP; Site: right antecubital; bp 11:46 Follow up: Response: No adverse reaction bp 11:11 Drug: TORadol - Ketorolac 15 mg Route: IVP; Site: right antecubital; bp 11:46 Follow up: Response: Pain is decreased bp 11:35 Drug: Lopressor 5 mg Route: IVP; Site: right antecubital; bp 11:46 Follow up: Response: No adverse reaction bp 11:40 Drug: Reglan 20 mg Route: IVP; Site: right antecubital; bp 11:46 Follow up: Response: Pain is decreased bp 12:30 Drug: cloNIDine 0.1 mg Route: PO; bp 13:37 Follow up: Response: No adverse reaction bp 18:20 Drug: NS 0.9% 500 ml Route: IV; Rate: bolus; Site: left antecubital; bp 18:59 Follow up: IV Status: Completed infusion; IV Intake: 500ml bp Intake: 18:59 IV: 500ml; Total: 500ml. bp Outcome: 18:35 Discharge ordered by . maranda 18:59 Discharged to home via wheelchair, with family. bp 18:59 Condition: stable 18:59 Discharge instructions given to patient, family, Instructed on discharge instructions, follow up and referral plans. medication usage, Demonstrated understanding of instructions, follow-up care, medications, Prescriptions given X 1. 19:00 Patient left the ED. bp Signatures: Dispatcher [employer] EDMS Chinedu Armenta MD MD cha Rittger, Kevin, MD MD kdr Martinez, Amelia as Smirch, Shelby, RN RN ss Peltier, Brian, RN RN bp Corrections: (The following items were deleted from the chart) 11:47 11:44 BP 186 / 71; Pulse 71bpm; Resp 16bpm; Pulse Ox 95%; bp bp
--- NOTE | 2020-10-07 18:36 | EDPHYS ---
Physician Documentation [facility] Name: Michaela Matias Age: 80 yrs Sex: Female : 1940 Arrival Date: 10/07/2020 Time: 07:20 Bed 13 Private MD: RODRÍGUEZ Physician Chinedu Armenta HPI: 10/07 07:41 This 80 yrs old Female presents to ER via Ambulatory with complaints of kdr Headache. 07:41 The patient complains of pain to the right roman catholic and left roman catholic. The patient kdr describes the headache as aching, constant, throbbing, unrelenting. Onset: The symptoms/episode began/occurred yesterday. Associated signs and symptoms: Pertinent positives: nausea, vomiting. Severity of symptoms: At its worst the pain was mild, moderate, just prior to arrival, in the emergency department the pain is unchanged. Headache History: The patient has had previous headaches and this one is similar to previous episodes. The symptoms are alleviated by nothing. the symptoms are aggravated by nothing. The patient has experienced similar episodes in the past, multiple times. The patient has not recently seen a physician. 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 - Social history:: Smoking status: Patient denies any tobacco usage or history of. ROS: 07:41 Constitutional: Negative for fever, chills, and weight loss, Eyes: Negative for injury, kdr pain, redness, and discharge, ENT: Negative for injury, pain, and discharge, Neck: Negative for injury, pain, and swelling, Cardiovascular: Negative for chest pain, palpitations, and edema, Respiratory: Negative for shortness of breath, cough, wheezing, and pleuritic chest pain, Abdomen/GI: Negative for abdominal pain, nausea, vomiting, diarrhea, and constipation, Back: Negative for injury and pain, : Negative for injury, bleeding, discharge, and swelling, MS/Extremity: Negative for injury and deformity, Skin: Negative for injury, rash, and discoloration, Psych: Negative for depression, anxiety, suicide ideation, homicidal ideation, and hallucinations, Allergy/Immunology: Negative for hives, rash, and allergies, Endocrine: Negative for neck swelling, polydipsia, polyuria, polyphagia, and marked weight changes, Hematologic/Lymphatic: Negative for swollen nodes, abnormal bleeding, and unusual bruising. 07:41 Abdomen/GI: Positive for vomiting. 07:41 Neuro: Positive for headache, Negative for altered mental status, dizziness, gait disturbance, numbness, seizure activity, speech changes, syncope, near syncope, tingling, tinnitus, tremor, visual changes, weakness. Exam: 07:41 Constitutional: This is a well developed, well nourished patient who is awake, alert, kdr and in no acute distress. Head/Face: Normocephalic, atraumatic. Eyes: Pupils equal round and reactive to light, extra-ocular motions intact. Lids and lashes normal. Conjunctiva and sclera are non-icteric and not injected. Cornea within normal limits. Periorbital areas with no swelling, redness, or edema. Neck: Trachea midline, no thyromegaly or masses palpated, and no cervical lymphadenopathy. Supple, full range of motion without nuchal rigidity, or vertebral point tenderness. No Meningismus. Chest/axilla: Normal chest wall appearance and motion. Nontender with no deformity. No lesions are appreciated. Cardiovascular: Regular rate and rhythm with a normal S1 and S2. No gallops, murmurs, or rubs. Normal PMI, no JVD. No pulse deficits. Respiratory: Lungs have equal breath sounds bilaterally, clear to auscultation and percussion. No rales, rhonchi or wheezes noted. No increased work of breathing, no retractions or nasal flaring. Abdomen/GI: Soft, non-tender, with normal bowel sounds. No distension or tympany. No guarding or rebound. No evidence of tenderness throughout. Back: No spinal tenderness. No costovertebral tenderness. Full range of motion. Skin: Warm, dry with normal turgor. Normal color with no rashes, no lesions, and no evidence of cellulitis. MS/ Extremity: Pulses equal, no cyanosis. Neurovascular intact. Full, normal range of motion. Neuro: Awake and alert, GCS 15, oriented to person, place, time, and situation. Cranial nerves II-XII grossly intact. Motor strength 5/5 in all extremities. Sensory grossly intact. Cerebellar exam normal. Normal gait. Psych: Awake, alert, with orientation to person, place and time. Behavior, mood, and affect are within normal limits. Vital Signs: 07:31 BP 183 / 66; Pulse 95; Resp 17; Temp 97.8(TE); Pulse Ox 95% on R/A; Weight 50.35 kg; ss Height 5 ft. 1 in. (154.94 cm); Pain 6/10; 08:00 BP 188 / 57; Pulse 87; Resp 16; Pulse Ox 92% ; bp 09:50 BP 178 / 65; Pulse 81; Resp 17; Pulse Ox 95% ; bp 10:45 BP 187 / 61; Pulse 73; Resp 16; Pulse Ox 95% ; bp 11:03 BP 186 / 71; Pulse 79; Resp 16; Pulse Ox 92% ; bp 11:44 BP 166 / 64; Pulse 71; Resp 16; Pulse Ox 95% ; bp 12:43 BP 155 / 107; Pulse 72; Resp 17; Pulse Ox 95% ; bp 13:36 BP 142 / 50; Pulse 80; Resp 16; Pulse Ox 96% ; bp 15:30 BP 156 / 62; Pulse 64; Resp 17; Pulse Ox 96% ; bp 16:30 BP 152 / 63; Pulse 75; Resp 16; Pulse Ox 96% ; bp 17:30 BP 146 / 52; Pulse 68; Resp 17; Pulse Ox 97% ; bp 18:30 BP 136 / 53; Pulse 77; Resp 17; Pulse Ox 97% ; bp 07:31 Body Mass Index 20.97 (50.35 kg, 154.94 cm) [place] Coma Score: 18:36 Eye Response: spontaneous(4). Verbal Response: oriented(5). Motor Response: obeys maranda commands(6). Total: 15. MDM: 18:17 Patient medically screened. maranda 18:36 Differential diagnosis: cluster headache, cerebral vascular accident, hyponatremia, maranda migraine, subarachnoid bleed, subdural hematoma, temporal arteritis, tension headache. Data reviewed: vital signs, nurses notes, lab test result(s), radiologic studies, CT scan, MRI. Data interpreted: residential monitor: rate is 64 beats/min, rhythm is regular. Counseling: I had a detailed discussion with the patient and/or guardian regarding: the historical points, exam findings, and any diagnostic results supporting the discharge/admit diagnosis, lab results, radiology results, the need for outpatient follow up, for definitive care, a family practitioner, a neurologist. 10/07 07:41 Order name: CBC with Diff; Complete Time: 09:45 kdr 10/07 07:41 Order name: Chem 7; Complete Time: 09:45 kdr 10/07 07:41 Order name: CT Head Brain wo Cont; Complete Time: : kdr 10/07 18:34 Order name: Urine Dipstick--Ancillary (enter results) bd 10/07 18:35 Order name: Urine Dipstick-Ancillary EDMS 10/07 13:14 Order name: MRI - Brain Wo Cont; Complete Time: 16:06 kdr 10/07 13:47 Order name: MRA Head Wo Cont; Complete Time: 16:06 EDMS 10/07 13:14 Order name: Urine Dipstick-Ancillary (obtain specimen); Complete Time: 18:40 kdr Administered Medications: 08:00 Drug: Zofran (Ondansetron) 4 mg Route: IVP; Site: right antecubital; bp 10:51 Follow up: Response: No adverse reaction bp 08:00 Drug: morphine 2 mg Route: IVP; Site: right antecubital; bp 10:51 Follow up: Response: No adverse reaction; Pain is decreased bp 10:30 Drug: Lopressor 2.5 mg Route: IVP; Site: right antecubital; bp 11:46 Follow up: Response: No adverse reaction bp 11:11 Drug: TORadol - Ketorolac 15 mg Route: IVP; Site: right antecubital; bp 11:46 Follow up: Response: Pain is decreased bp 11:35 Drug: Lopressor 5 mg Route: IVP; Site: right antecubital; bp 11:46 Follow up: Response: No adverse reaction bp 11:40 Drug: Reglan 20 mg Route: IVP; Site: right antecubital; bp 11:46 Follow up: Response: Pain is decreased bp 12:30 Drug: cloNIDine 0.1 mg Route: PO; bp 13:37 Follow up: Response: No adverse reaction bp 18:20 Drug: NS 0.9% 500 ml Route: IV; Rate: bolus; Site: left antecubital; bp 18:59 Follow up: IV Status: Completed infusion; IV Intake: 500ml bp Disposition: 10/07/20 18:35 Discharged to Home. Impression: Headache, Essential (primary) hypertension. - Condition is Stable. - Discharge Instructions: General Headache Without Cause, Hypertension, Hypertension, [id number]. - Prescriptions for Tylenol 325 mg Oral Tablet - take 2 tablet by ORAL route every 6 hours as needed; 1 bottle. - Medication Reconciliation Form, Thank You Letter, Antibiotic Education, Prescription Opioid Use form. - Follow up: Private Physician; When: 2 - 3 days; Reason: Recheck today's complaints, Continuance of care, Re-evaluation by your physician. Follow up: Bret Huber MD; When: 2 - 3 days; Reason: Recheck today's complaints, Continuance of care, Re-evaluation by your physician. - Problem is new. - Symptoms have improved. Signatures: Dispatcher [employer] EDWA Chinedu Armenta MD MD cha Rittger, Kevin, MD MD kdr Smirch, Shelby, RN RN Osito Nichols RN RN bp Corrections: (The following items were deleted from the chart) 19:00 18:35 10/07/2020 18:35 Discharged to Home. Impression: Headache; Essential (primary) bp hypertension. Condition is Stable. Forms are Medication Reconciliation Form, Thank You Letter, Antibiotic Education, Prescription Opioid Use. Follow up: Private Physician; When: 2 - 3 days; Reason: Recheck today's complaints, Continuance of care, Re-evaluation by your physician. Follow up: Bret Huber; When: 2 - 3 days; Reason: Recheck today's complaints, Continuance of care, Re-evaluation by your physician. Problem is new. Symptoms have improved. maranda
[2020-10-07] MEDS ORDERED: NA CHLORIDE 0.9% 500 ML ONE (18:41)
[2020-10-07 20:10] VITALS: TEMP 97.8
[2020-10-07 20:15] LABS: Urine Blood 3+ (NEG); Urine Glucose TRACE (NEG); Urine Protein 3+ (NEG); Urine Specific Gravity >1.030 (1.005-1.030); Urine pH 5.5 (5.0-7.0)
[2020-10-07 20:25] VITALS: O2SAT 97
[2020-10-07 20:26] VITALS: BP 136/53
== END 2020-10-07 19:00 | disposition home or self-care (01) ==
LOC: ER 07:16
DX: I10 Essential (primary) hypertension (principal); R11.2 Nausea with vomiting, unspecified; G30.9 Alzheimer's disease, unspecified; F02.80 Dementia in other diseases classified elsewhere, unspecified severity, without behavioral disturbance, psychotic disturbance, mood disturbance, and anxiety; E78.00 Pure hypercholesterolemia, unspecified; Z95.1 Presence of aortocoronary bypass graft; Z79.82 Long term (current) use of aspirin; Z88.5 Allergy status to narcotic agent
CPT/HCPCS: 85025; 80048; 36415; 81003; 70450; 70551; 70544; J2765; J2270; J7040; J2405; 96361; 96374; 96375; 99284

== ENCOUNTER 2022-02-07 06:56 | Inpatient (IN) | payer OTHER ==
--- OUTSIDE RECORDS SUMMARY | 2022-02-07 07:01 | XMS REPORT | Continuity of Care Document ---
:[address] [facility] t Address [facility]3 Matthew Christie [address] [place] [address] Care Team Providers Name Role Phone Only, Test Attending Clinician Unavailable Mahogany ZHANG Attending Clinician Doctor Unassigned, Name Attending Clinician Unavailable Naif ZHANG, A Attending Clinician Nasrin ZHANG Attending Clinician Adeline ZHANG, C Attending Clinician Payers Payer Name Policy Type Policy Number Effective Date Expiration Date S [facility] [place]IC[place] PART A \\T\\ [id number] 2006 B 00:00:00 COMMERCIAL [id number] 2018 NON-CONTRACT 00:00:00 GENERIC Problems Condition Condition Condition Status Onset Resolution Last Treating Co mments Source Name Details Category Date Date Treatment Clinician Date Poor Poor Disease Active 2019- Univers appetite appetite 03-24 ity of 00:00: [address] Dehydratio Dehydratio Disease Active 2019- U nivers n n 03-20 ity of 00:00: [address] 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 Branch Medication Medication Disease Active U nivers refill refill 03-20 ity of 00:00: [place] 00 [facility] Branch Urinary Urinary Disease Active Univers tract tract 8 [place] of infection [place] 00:[place] without without 00 Medical hematuria, hematuria, Br anch site site unspecifie unspecifie d d Acute Acute Disease Active Univers bilateral bilateral 8 ity of low back low back 00:00: [place] pain pain 00 Medical without without Branch sciatica sciatica Flank pain Flank pain Disease Active U nivers 8 ity of 00:00: [place] 00 [facility] Branch Dementia Dementia Disease Active Unive rs ity of [facility] Depression Depression Disease Active U nivers ity of [facility] Diabetes Diabetes Disease Active Unive rs ity of [facility] High High Disease Active Univers cholestero cholestero it y of l l [facility] HTN HTN Disease Active Univers (hypertens (hypertens it y of ion) ion) [facility] Celiac Celiac Disease Active Univers disease disease ity of [facility] CKD CKD Disease Active Univers (chronic (chronic ity of kidney kidney [place] disease) disease) Medica l stage 3, stage 3, Branch GFR 30-59 GFR 30-59 ml/min ml/min Allergies, Adverse Reactions, Alerts Allergy Allergy Status Severity Reaction(s) Onset Inactive Treating Comm ents Source Name Type Date Date Clinician Gluten Propensi Active Unknown - Unive rs ty to See comments 3 ity of adverse 00:00: [place] reaction 00 [facility] GLUTEN DRUG Active Unknown-Cmnt Univ ers INGREDI 3 ity of 00:00: [place] 00 [facility] Branch Meperidi Propensi Active Hallucinatio 2016-07 Univers ne Hcl ty to ns 0-18 ity of adverse 00:00: [place] reaction 00 [facility] Prometha Propensi Active Hallucinatio 2016-07 Univers zine Hcl ty to ns 0-18 ity of adverse 00:00: [place] reaction [facility] MEPERIDI DRUG Active Hallucinates 2016-07 Un tracee NE HCL INGREDI 0-18 ity of 00:00: [address] PROMETHA DRUG Active Hallucinates 2016-07 Un tracee ZINE HCL INGREDI 0-18 ity of 00:00: [address] Social History Social Habit Start Date Stop Date Quantity Comments Source Sex Assigned At Universit y of [facility] Tobacco use and 2019-03-22 2019-03-22 Never used Universit y of exposure 00:00:00 00:00:00 [facility] Alcohol intake 2019-03-22 2019-03-22 Current University of 00:00:00 00:00:00 non-drinker of [facility] alcohol [place] (finding) Smoking Status Start Date Stop Date Source Former smoker 2019-03-22 00:00:00 2019-03-22 00:00:00 [facility] ty [facility] Medications Ordered Filled Start Stop Current Ordering Indication Dosage Frequency Signature Comments Components Source Medication Medication Date Date Medication? Clinician (SIG) Name Name MIRTAZAPINE 2018-07 Yes [id number] TAKE ONE Univers 15 mg 0-13 TABLET BY ity of tablet 00:00: MOUTH AT [address] MIRTAZAPINE 2018-07 Yes [id number] TAKE ONE Univers 15 mg 0-13 TABLET BY ity of tablet 00:00: MOUTH AT [address] MIRTAZAPINE 2018-07 Yes [id number] TAKE ONE Univers 15 mg 0-13 TABLET BY ity of tablet 00:00: MOUTH AT [address] MIRTAZAPINE 2018-07 Yes [id number] TAKE ONE Univers 15 mg 0-13 TABLET BY ity of tablet 00:00: MOUTH AT [address] Food Yes [id number] 1 bottle Unive rs Supplement, 03-24 with ity of Lactose-[place] 00:00: [place]ENSURE 00 to three Medica l ACTIVE HIGH bottles Branc h PROTEIN) daily liquid Food Yes [id number] 1 bottle Unive rs Supplement, 03-24 with ity of Lactose-[place] 00:00: [place] (ENSURE 00 to three Medica l ACTIVE HIGH bottles Branc h PROTEIN) daily liquid Food Yes [id number] 1 bottle Unive rs Supplement, 03-24 with ity of Lactose-[place] 00:00: [place], [place] (ENSURE 00 to three Medica l ACTIVE HIGH bottles Branc h PROTEIN) daily liquid Food Yes [id number] 1 bottle Unive rs Supplement, 03-24 with ity of Lactose-[place] 00:00: [place], [place] (ENSURE 00 to three Medica l ACTIVE HIGH bottles Branc h PROTEIN) daily liquid Food Yes [id number] 1 bottle Unive rs Supplement, 03-24 with ity of Lactose-[place] 00:00: [place], [place] (ENSURE 00 to three Medica l ACTIVE HIGH bottles Branc h PROTEIN) daily liquid Food Yes [id number] 1 bottle Unive rs Supplement, 03-24 with ity of Lactose-[place] 00:00: [place], [place] (ENSURE 00 to three Medica l ACTIVE HIGH bottles Branc h PROTEIN) daily liquid mirtazapine Yes [id number] 15mg Take 1 Univers (REMERON) 03-22 tablet by ity o f 15 mg 00:00: mouth at [facility] 00 bedtime. Medical Branch NaCl 0.9% 2019- No 1000mL at 999 Uni vers (NS) bolus 03-20 09-04 mL/hr, ity of infusion 18:45: 22:01 1,000 mL, [place] 1,000 mL 00 :00 IV Medical Infusion, Branch ONCE, 1 dose, 03/20/19 at 1345, KATARINA omeprazole Yes 20mg Take 20 mg U nivers 20 mg 03-20 by mouth ity of capsule 17:46: daily. [place] [address] Medical Branch FLUoxetine Yes 20mg Take 20 mg U nivers 20 mg 03-20 by mouth ity of capsule 17:46: daily. [place] [address] Medical Branch rosuvastati Yes 40mg Take 40 mg Univers n 40 mg 03-20 by mouth ity of tablet 17:46: at [place] [address] bedtime. Medical Branch amLODIPine Yes 5mg Take 5 mg Un tracee 5 mg tablet 03-20 by mouth ity of 17:46: daily. [place] [address] Medical Branch Miscellaneo 0 Yes [id number] Needs [facility] 03-20 overnight ity of Supply [facility] 17:46: pulse ox. Has Medical shallow Branch breathing at night. Required O2 at night in the past. Has O2 at home but only supposed to use for daytime. Please check overnight pulse ox WITHOUT oxygen use overnight. omeprazole 2019-0 Yes 20mg Take 20 mg U nivers 20 mg 9-04 by mouth ity of capsule 17:46: daily. [place] [address] Medical Branch FLUoxetine 2019-0 Yes 20mg Take 20 mg U nivers 20 mg 9-04 by mouth ity of capsule 17:46: daily. [place] [address] Medical Branch rosuvastati Yes 40mg Take 40 mg Univers n 40 mg 9-04 by mouth ity of tablet 17:46: at [place] [address] bedtime. Medical Branch amLODIPine 2019-0 Yes 5mg Take 5 mg Un tracee 5 mg tablet 9-04 by mouth ity of 17:46: daily. [address] Branch Miscellaneo Yes [id number] Needs [facility] 9-04 overnight ity of Supply Misc 17:46: pulse ox. [place] Has Medical shallow Branch breathing at night. Required O2 at night in the past. Has O2 at home but only supposed to use for daytime. Please check overnight pulse ox WITHOUT oxygen use overnight. omeprazole 2019- Yes 20mg Take 20 mg U nivers 20 mg 9-04 by mouth ity of capsule 17:46: daily. [address] FLUoxetine Yes 20mg Take 20 mg U nivers 20 mg 9-04 by mouth ity of capsule 17:46: daily. [address] rosuvastati Yes 40mg Take 40 mg Univers n 40 mg 9-04 by mouth ity of tablet 17:46: at [place] [address] bedtime. Medical Branch amLODIPine 2019-0 Yes 5mg Take 5 mg Un tracee 5 mg tablet 9-04 by mouth ity of 17:46: daily. [address] Miscellaneo Yes [id number] Needs [facility] 9-04 overnight ity of Supply Misc 17:46: pulse ox. [place] Has Medical shallow Branch breathing at night. Required O2 at night in the past. Has O2 at home but only supposed to use for daytime. Please check overnight pulse ox WITHOUT oxygen use overnight. omeprazole 2019-0 Yes 20mg Take 20 mg U nivers 20 mg 9-04 by mouth ity of capsule 17:46: daily. [address] FLUoxetine 2019-0 Yes 20mg Take 20 mg U nivers 20 mg 9-04 by mouth ity of capsule 17:46: daily. [place] [address] Medical Branch rosuvastati Yes 40mg Take 40 mg Univers n 40 mg 9-04 by mouth ity of tablet 17:46: at [place] [address] bedtime. Medical Branch amLODIPine Yes 5mg Take 5 mg Un tracee 5 mg tablet 9-04 by mouth ity of 17:46: daily. [place] [address] Medical Branch Miscellaneo Yes [id number] Needs [facility] 9-04 overnight ity of Supply Mis 17:46: pulse ox. [place] Has Medical shallow Branch breathing at night. Required O2 at night in the past. Has O2 at home but only supposed to use for daytime. Please check overnight pulse ox WITHOUT oxygen use overnight. omeprazole Yes 20mg Take 20 mg U nivers 20 mg 9-04 by mouth ity of capsule 17:46: daily. [place] [address] Medical Branch FLUoxetine Yes 20mg Take 20 mg U nivers 20 mg 9-04 by mouth ity of capsule 17:46: daily. [place] [address] Medical Branch rosuvastati Yes 40mg Take 40 mg Univers n 40 mg 9-04 by mouth ity of tablet 17:46: at [place] [address] bedtime. Medical Branch amLODIPine Yes 5mg Take 5 mg Un tracee 5 mg tablet 9-04 by mouth ity of 17:46: daily. [place] [address] Medical Branch Miscellaneo Yes [id number] Needs [facility] 9-04 overnight ity of Supply Mis 17:46: pulse ox. [place] Has Medical shallow Branch breathing at night. Required O2 at night in the past. Has O2 at home but only supposed to use for daytime. Please check overnight pulse ox WITHOUT oxygen use overnight. omeprazole 2019 Yes 20mg Take 20 mg U nivers 20 mg 9-04 by mouth ity of capsule 17:46: daily. [place] [address] Medical Branch FLUoxetine Yes 20mg Take 20 mg U nivers 20 mg 9-04 by mouth ity of capsule 17:46: daily. [place] [address] Medical Branch rosuvastati Yes 40mg Take 40 mg Univers n 40 mg 9-04 by mouth ity of tablet 17:46: at [place] [address] bedtime. Medical Branch amLODIPine Yes 5mg Take 5 mg Un tracee 5 mg tablet 9-04 by mouth ity of 17:46: daily. [place] [address] Medical Branch Miscellaneo Yes [id number] Needs [facility] -04 overnight ity of Supply Misc 17:46: pulse ox. [place] Has Medical shallow Branch breathing at night. Required O2 at night in the past. Has O2 at home but only supposed to use for daytime. Please check overnight pulse ox WITHOUT oxygen use overnight. omeprazole 2019 Yes 20mg Take 20 mg U nivers 20 mg 9-04 by mouth ity of capsule 17:46: daily. [place] [address] Medical Branch FLUoxetine Yes 20mg Take 20 mg U nivers 20 mg 9-04 by mouth ity of capsule 17:46: daily. [place] [address] Medical Branch rosuvastati Yes 40mg Take 40 mg Univers n 40 mg 9-04 by mouth ity of tablet 17:46: at [place] [address] bedtime. Medical Branch amLODIPine Yes 5mg Take 5 mg Un tracee 5 mg tablet 9-04 by mouth ity of 17:46: daily. [place] [address] Medical Branch Miscellaneo Yes [id number] Needs [facility] 03-20 overnight ity of Supply Misc 17:46: pulse ox. [place] Has Medical shallow Branch breathing at night. Required O2 at night in the past. Has O2 at home but only supposed to use for daytime. Please check overnight pulse ox WITHOUT oxygen use overnight. omeprazole Yes 20mg Take 20 mg U nivers 20 mg 9-04 by mouth ity of capsule 17:46: daily. [place] [address] Medical Branch FLUoxetine Yes 20mg Take 20 mg U nivers 20 mg 9-04 by mouth ity of capsule 17:46: daily. [place] [address] Medical Branch rosuvastati Yes 40mg Take 40 mg Univers n 40 mg 9-04 by mouth ity of tablet 17:46: at [place] [address] bedtime. Medical Branch amLODIPine Yes 5mg Take 5 mg Un tracee 5 mg tablet 9-04 by mouth ity of 17:46: daily. [place] [address] Medical Branch Miscellaneo Yes [id number] Needs [facility] -04 overnight ity of Supply Misc 17:46: pulse ox. [place] 23 Has Medical shallow Branch breathing at night. Required O2 at night in the past. Has O2 at home but only supposed to use for daytime. Please check overnight pulse ox WITHOUT oxygen use overnight. omeprazole 2019-0 Yes 20mg Take 20 mg U nivers 20 mg 9-04 by mouth ity of capsule 17:46: daily. [place] [address] Medical Branch FLUoxetine 2019-0 Yes 20mg Take 20 mg U nivers 20 mg 9-04 by mouth ity of capsule 17:46: daily. [place] [address] Medical Branch rosuvastati 2019-0 Yes 40mg Take 40 mg Univers n 40 mg 9-04 by mouth ity of tablet 17:46: at [place] [address] bedtime. Medical Branch amLODIPine 2019-0 Yes 5mg Take 5 mg Un tracee 5 mg tablet 9-04 by mouth ity of 17:46: daily. [place] [address] Medical Branch Miscellaneo 2018- Yes [id number] Needs [facility] 9-04 overnight ity of Supply Mis 17:46: pulse ox. [place] Has Medical shallow Branch breathing at night. Required O2 at night in the past. Has O2 at home but only supposed to use for daytime. Please check overnight pulse ox WITHOUT oxygen use overnight. omeprazole 2019-0 Yes 20mg Take 20 mg U nivers 20 mg 9-04 by mouth ity of capsule 17:46: daily. [place] [address] Medical Branch FLUoxetine 2019-0 Yes 20mg Take 20 mg U nivers 20 mg 9-04 by mouth ity of capsule 17:46: daily. [place] [address] Medical Branch rosuvastati 2019-0 Yes 40mg Take 40 mg Univers n 40 mg 9-04 by mouth ity of tablet 17:46: at [place] [address] bedtime. Medical Branch amLODIPine 2019-0 Yes 5mg Take 5 mg Un tracee 5 mg tablet 9-04 by mouth ity of 17:46: daily. [place] [address] Medical Branch Miscellaneo 2019-0 Yes [id number] Needs [facility] 9-04 overnight ity of Supply Misc 17:46: pulse ox. [place] Has Medical shallow Branch breathing at night. Required O2 at night in the past. Has O2 at home but only supposed to use for daytime. Please check overnight pulse ox WITHOUT oxygen use overnight. omeprazole 2019-0 Yes 20mg Take 20 mg U nivers 20 mg 9-04 by mouth ity of capsule 17:46: daily. [place] [address] Medical Branch FLUoxetine 2019-0 Yes 20mg Take 20 mg U nivers 20 mg 9-04 by mouth ity of capsule 17:46: daily. [place] [address] Medical Branch rosuvastati 2019-0 Yes 40mg Take 40 mg Univers n 40 mg 9-04 by mouth ity of tablet 17:46: at [place] [address] bedtime. Medical Branch amLODIPine 2019-0 Yes 5mg Take 5 mg Un tracee 5 mg tablet 9-04 by mouth ity of 17:46: daily. [place] [address] Medical Branch Miscellaneo 2019 Yes [id number] Needs [facility] -04 overnight ity of Supply Misc 17:46: pulse ox. [place] Has Medical shallow Branch breathing at night. Required O2 at night in the past. Has O2 at home but only supposed to use for daytime. Please check overnight pulse ox WITHOUT oxygen use overnight. omeprazole 2019 Yes 20mg Take 20 mg U nivers 20 mg 9-04 by mouth ity of capsule 17:46: daily. [place] [address] Medical Branch FLUoxetine Yes 20mg Take 20 mg U nivers 20 mg 9-04 by mouth ity of capsule 17:46: daily. [place] [address] Medical Branch rosuvastati Yes 40mg Take 40 mg Univers n 40 mg 9-04 by mouth ity of tablet 17:46: at [place] [address] bedtime. Medical Branch amLODIPine Yes 5mg Take 5 mg Un tracee 5 mg tablet 9-04 by mouth ity of 17:46: daily. [place] [address] Medical Branch Miscellaneo Yes [id number] Needs [facility] - overnight ity of Supply Misc 17:46: pulse ox. [place] Has Medical shallow Branch breathing at night. Required O2 at night in the past. Has O2 at home but only supposed to use for daytime. Please check overnight pulse ox WITHOUT oxygen use overnight. ciprofloxac 2019- No [id number] 500mg Take 1 Univers in HCl 500 03-06 tablet by ity of mg tablet 00:00: 04:59 mouth [place] 00 :00 every 12 Medical (twelve) Branch hours for 10 days. Saccharomyc 2019- No [id number] 250mg Take 1 Univers es 03-06 capsule by ity of boulardii 00:00: 04:59 mouth 2 [place] 250 mg 00 :00 (two) Medical capsule times Branch daily for 10 days. ciprofloxac 2018- No [id number] 500mg Take 1 Univers in HCl 500 03-06 tablet by ity of mg tablet 00:00: 04:59 mouth [place] 00 :00 every 12 Medical (twelve) Branch hours for 10 days. Saccharomyc 2018- No [id number] 250mg Take 1 Univers es 03-06 capsule by ity of [place]oul[place]ii 00:00: 04:59 [place] 2 [place] 250 mg 00 :00 (two) Medical capsule times Branch daily for 10 days. ciprofloxac 2018- No [id number] 500mg Take 1 Univers in HCl 500 03-06 tablet by ity of mg tablet 00:00: 04:59 mouth [place] 00 :00 every 12 Medical (twelve) Branch hours for 10 days. Saccharomyc 2018- No [id number] 250mg Take 1 Univers es 03-06 capsule by ity of [place] 00:00: 04:59 mouth [place] 250 mg 00 :00 (two) Medical capsule times Branch daily for 10 days. phenazopyri 2019- No [id number] 200mg Take 2 Univers dine 03-06-25 tablets by ity of (PYRIDIUM) 00:00: 04:59 mouth 3 [place] 100 mg 00 :00 (three) Medical tablet times Branch daily for 3 days. phenazopyri 2019- No [id number] 200mg Take 2 Univers dine 03-06 08-25 tablets by ity of (PYRIDIUM) 00:00: 04:59 mouth 3 [place] 100 mg 00 :00 (three) Medical tablet times Branch daily for 3 days. memantine 2019- No 5mg Take 5 mg Un tracee (NAMENDA) 5 8- 08-10 by mouth ity of mg tablet 04:00: 00:00 daily. [place] 37 :00 Medical Branch memantine 2019- No 5mg Take 5 mg Un tracee (NAMENDA) 5 8-11 08-10 by mouth ity of mg tablet 04:00: 00:00 daily. [place] 37 :00 Medical Branch memantine 2019- No 5mg Take 5 mg Un tracee (NAMENDA) 5 8-11 08-10 by mouth ity of mg tablet 04:00: 00:00 daily. [place] 37 :00 Medical Branch memantine 2019- No 5mg Take 5 mg Un tracee (NAMENDA) 5 8-11 08-10 by mouth ity of mg tablet 04:00: 00:00 daily. [place] 37 :00 Medical Branch omeprazole 2018-0 Yes 20mg Take 20 mg U nivers 20 mg 8-09 by mouth ity of capsule 19:59: daily. [place] [address] Medical Branch FLUoxetine Yes 20mg Take 20 mg U nivers 20 mg 8-09 by mouth ity of capsule 19:59: daily. [place] [address] Medical Branch rosuvastati Yes 40mg Take 40 mg Univers n 40 mg 8-09 by mouth ity of tablet 19:59: at [place] [address] bedtime. Medical Branch amLODIPine Yes 5mg Take 5 mg Un tracee 5 mg tablet 8-09 by mouth ity of 19:59: daily. [place] [address] Medical Branch Miscellaneo Yes [id number] Needs [facility] 8- overnight ity of Supply Mis 19:59: pulse ox. [place] Has Medical shallow Branch breathing at night. Required O2 at night in the past. Has O2 at home but only supposed to use for daytime. Please check overnight pulse ox WITHOUT oxygen use overnight. omeprazole Yes 20mg Take 20 mg U nivers 20 mg 8-09 by mouth ity of capsule 19:59: daily. [place] [address] Medical Branch FLUoxetine Yes 20mg Take 20 mg U nivers 20 mg 8-09 by mouth ity of capsule 19:59: daily. [place] [address] Medical Branch rosuvastati Yes 40mg Take 40 mg Univers n 40 mg 8-09 by mouth ity of tablet 19:59: at [place] [address] bedtime. Medical Branch amLODIPine 2019- Yes 5mg Take 5 mg Un tracee 5 mg tablet 8-09 by mouth ity of 19:59: daily. [place] [address] Medical Branch Miscellaneo Yes [id number] Needs [facility] 8-09 overnight ity of Supply Mis 19:59: pulse ox. [place] [address] Has Medical shallow Branch breathing at night. Required O2 at night in the past. Has O2 at home but only supposed to use for daytime. Please check overnight pulse ox WITHOUT oxygen use overnight. omeprazole 2019-0 Yes 20mg Take 20 mg U nivers 20 mg 8-09 by mouth ity of capsule 19:59: daily. [place] [address] Medical Branch FLUoxetine 2019-0 Yes 20mg Take 20 mg U nivers 20 mg 8-09 by mouth ity of capsule 19:59: daily. [place] [address] Medical Branch rosuvastati 2019-0 Yes 40mg Take 40 mg Univers n 40 mg 8-09 by mouth ity of tablet 19:59: at [place] [address] bedtime. Medical Branch amLODIPine 2019-0 Yes 5mg Take 5 mg Un tracee 5 mg tablet 8-09 by mouth ity of 19:59: daily. [place] [address] Medical Branch Miscellaneo 2019-0 Yes [id number] Needs [facility] 8-09 overnight ity of Supply Misc 19:59: pulse ox. [place] Has Medical shallow Branch breathing at night. Required O2 at night in the past. Has O2 at home but only supposed to use for daytime. Please check overnight pulse ox WITHOUT oxygen use overnight. omeprazole 2019-0 Yes 20mg Take 20 mg U nivers 20 mg 8-09 by mouth ity of capsule 19:59: daily. [place] [address] Medical Branch FLUoxetine 2019-0 Yes 20mg Take 20 mg U nivers 20 mg 8-09 by mouth ity of capsule 19:59: daily. [place] [address] Medical Branch rosuvastati 2019-0 Yes 40mg Take 40 mg Univers n 40 mg 8-09 by mouth ity of tablet 19:59: at [place] [address] bedtime. Medical Branch amLODIPine 2019-0 Yes 5mg Take 5 mg Un tracee 5 mg tablet 8-09 by mouth ity of 19:59: daily. [place] [address] Medical Branch Miscellaneo 2019-0 Yes [id number] Needs [facility] 8-09 overnight ity of Supply Misc 19:59: pulse ox. [place] Has Medical shallow Branch breathing at night. Required O2 at night in the past. Has O2 at home but only supposed to use for daytime. Please check overnight pulse ox WITHOUT oxygen use overnight. omeprazole 2019-0 Yes 20mg Take 20 mg U nivers 20 mg 8-09 by mouth ity of capsule 19:59: daily. [place] [address] Medical Branch FLUoxetine 2019-0 Yes 20mg Take 20 mg U nivers 20 mg 8-09 by mouth ity of capsule 19:59: daily. [place] [address] Medical Branch rosuvastati 2019-0 Yes 40mg Take 40 mg Univers n 40 mg 8-09 by mouth ity of tablet 19:59: at [place] [address] bedtime. Medical Branch amLODIPine 2019-0 Yes 5mg Take 5 mg Un tracee 5 mg tablet 8-09 by mouth ity of 19:59: daily. [place] [address] Medical Branch Miscellaneo 2019-0 Yes [id number] Needs [facility] 8-09 overnight ity of Supply Misc 19:59: pulse ox. [place] Has Medical shallow Branch breathing at night. Required O2 at night in the past. Has O2 at home but only supposed to use for daytime. Please check overnight pulse ox WITHOUT oxygen use overnight. omeprazole 2019- Yes 20mg Take 20 mg U nivers 20 mg 8-09 by mouth ity of capsule 19:59: daily. [place] [address] Medical Branch FLUoxetine Yes 20mg Take 20 mg U nivers 20 mg 8-09 by mouth ity of capsule 19:59: daily. [place] [address] Medical Branch rosuvastati Yes 40mg Take 40 mg Univers n 40 mg 8-09 by mouth ity of tablet 19:59: at [place] [address] bedtime. Medical Branch amLODIPine 2019-0 Yes 5mg Take 5 mg Un tracee 5 mg tablet 8-09 by mouth ity of 19:59: daily. [place] [address] Medical Branch Miscellaneo 2018-0 Yes [id number] Needs [facility] 8-09 overnight ity of Supply Misc 19:59: pulse ox. [place] Has Medical shallow Branch breathing at night. Required O2 at night in the past. Has O2 at home but only supposed to use for daytime. Please check overnight pulse ox WITHOUT oxygen use overnight. omeprazole 2019-0 Yes 20mg Take 20 mg U nivers 20 mg 8-09 by mouth ity of capsule 19:59: daily. [place] [address] Medical Branch FLUoxetine 2019-0 Yes 20mg Take 20 mg U nivers 20 mg 8-09 by mouth ity of capsule 19:59: daily. [place] [address] Medical Branch rosuvastati 2019-0 Yes 40mg Take 40 mg Univers n 40 mg 8-09 by mouth ity of tablet 19:59: at [place] [address] bedtime. Medical Branch amLODIPine 2019-0 Yes 5mg Take 5 mg Un tracee 5 mg tablet 8-09 by mouth ity of 19:59: daily. [place] [address] Medical Branch Miscellaneo 2019-0 Yes [id number] Needs [facility] 8-09 overnight ity of Supply Misc 19:59: pulse ox. Leelee Lieberman Has Medical shallow Branch breathing at night. Required O2 at night in the past. Has O2 at home but only supposed to use for daytime. Please check overnight pulse ox WITHOUT oxygen use overnight. omeprazole 2019- Yes 20mg Take 20 mg U nivers 20 mg 8-09 by mouth ity of capsule 19:59: daily. [place] [address] Medical Branch FLUoxetine 2019-0 Yes 20mg Take 20 mg U nivers 20 mg 8-09 by mouth ity of capsule 19:59: daily. [place] [address] Medical Branch rosuvastati 2019 Yes 40mg Take 40 mg Univers n 40 mg 8-09 by mouth ity of tablet 19:59: at [place] [address] bedtime. Medical Branch amLODIPine 2019- Yes 5mg Take 5 mg Un tracee 5 mg tablet 8-09 by mouth ity of 19:59: daily. [place] [address] Medical Branch Miscellaneo 2019- Yes [id number] Needs [facility] 8-09 overnight ity of Supply Misc 19:59: pulse ox. Leelee Lieberman Has Medical shallow Branch breathing at night. Required O2 at night in the past. Has O2 at home but only supposed to use for daytime. Please check overnight pulse ox WITHOUT oxygen use overnight. ondansetron 2019-0 Yes [id number] 4mg Take 1 Univers 4 mg tablet 8-09 tablet by ity of 00:00: mouth [place] 00 every 6 Medical (six) Branch hours as needed for Nausea and Vomiting (N/V). ondansetron 2019-0 Yes [id number] 4mg Take 1 Univers 4 mg tablet 8-09 tablet by ity of 00:00: mouth [place] 00 every 6 Medical (six) Branch hours as needed for Nausea and Vomiting (N/V). ondansetron 2019-0 Yes [id number] 4mg Take 1 Univers 4 mg tablet 8-09 tablet by ity of 00:00: mouth [place] 00 every 6 Medical (six) Branch hours as needed for Nausea and Vomiting (N/V). ondansetron 2019-0 Yes [id number] 4mg Take 1 Univers 4 mg tablet 8-09 tablet by ity of 00:00: mouth [place] 00 every 6 Medical (six) Branch hours as needed for Nausea and Vomiting (N/V). ondansetron 2019-0 Yes [id number] 4mg Take 1 Univers 4 mg tablet 8-09 tablet by ity of 00:00: mouth [place] 00 every 6 Medical (six) Branch hours as needed for Nausea and Vomiting (N/V). ondansetron 2019-0 Yes [id number] 4mg Take 1 [facility] 4 mg tablet 8-09 tablet by ity of 00:00: mouth [place] 00 every 6 Medical (six) Branch hours as needed for Nausea and Vomiting (N/V). ondansetron 2019-0 Yes [id number] 4mg Take 1 [facility] 4 mg tablet 8-09 tablet by ity of 00:00: mouth [place] 00 every 6 Medical (six) Branch hours as needed for Nausea and Vomiting (N/V). ondansetron 2019-0 Yes [id number] 4mg Take 1 [facility] 4 mg tablet 8-09 tablet by ity of 00:00: mouth [place] 00 every 6 Medical (six) Branch hours as needed for Nausea and Vomiting (N/V). ondansetron 2019-0 Yes [id number] 4mg Take 1 [facility] 4 mg tablet 8-09 tablet by ity of 00:00: mouth [place] 00 every 6 Medical (six) Branch hours as needed for Nausea and Vomiting (N/V). ondansetron 2019-0 Yes [id number] 4mg Take 1 [facility] 4 mg tablet 8-09 tablet by ity of 00:00: mouth [place] 00 every 6 Medical (six) Branch hours as needed for Nausea and Vomiting (N/V). ondansetron 2019-0 Yes [id number] 4mg Take 1 [facility] 4 mg tablet 8-09 tablet by ity of 00:00: mouth [place] 00 every 6 Medical (six) Branch hours as needed for Nausea and Vomiting (N/V). ondansetron 2019-0 Yes [id number] 4mg Take 1 Univers 4 mg tablet 8-09 tablet by ity of 00:00: mouth [place] 00 every 6 Medical (six) Branch hours as needed for Nausea and Vomiting (N/V). ondansetron 2019-0 Yes [id number] 4mg Take 1 [facility] 4 mg tablet 8-09 tablet by ity of 00:00: mouth [place] 00 every 6 Medical (six) Branch hours as needed for Nausea and Vomiting (N/V). ondansetron 2019-0 Yes [id number] 4mg Take 1 Univers 4 mg tablet 8-09 tablet by ity of 00:00: mouth [place] 00 every 6 Medical (six) Branch hours as needed for Nausea and Vomiting (N/V). ondansetron 2019-0 Yes [id number] 4mg Take 1 [facility] 4 mg tablet 8-09 tablet by ity of 00:00: mouth [place] 00 every 6 Medical (six) Branch hours as needed for Nausea and Vomiting (N/V). ondansetron 2019-0 Yes [id number] 4mg Take 1 [facility] 4 mg tablet 8-09 tablet by ity of 00:00: mouth [place] 00 every 6 Medical (six) Branch hours as needed for Nausea and Vomiting (N/V). ondansetron 2019-0 Yes [id number] 4mg Take 1 Univers 4 mg tablet 8-09 tablet by ity of 00:00: mouth [place] 00 every 6 Medical (six) Branch hours as needed for Nausea and Vomiting (N/V). ondansetron 2019-0 Yes [id number] 4mg Take 1 Univers 4 mg tablet 8-09 tablet by ity of 00:00: mouth [place] 00 every 6 Medical (six) Branch hours as needed for Nausea and Vomiting (N/V). omeprazole 2019-0 Yes 20mg Take 20 mg U nivers 20 mg 5-09 by mouth ity of capsule 20:43: daily. [place] [address] Medical Branch FLUoxetine 2019-0 Yes 20mg Take 20 mg U nivers 20 mg 5-09 by mouth ity of capsule 20:43: daily. [place] [address] Medical Branch rosuvastati 2019-0 Yes 40mg Take 40 mg Univers n 40 mg 5-09 by mouth ity of tablet 20:43: at [place] [address] bedtime. Medical Branch amLODIPine 2019-0 Yes 5mg Take 5 mg Un tracee 5 mg tablet 5-09 by mouth ity of 20:43: daily. [place] [address] Medical Branch memantine 2019-0 Yes 5mg Take 5 mg Uni vers (NAMENDA) 5 5-09 by mouth ity of mg tablet 20:43: daily. Medical Branch Miscellaneo 2018-0 Yes [id number] Needs [facility] 11-22 overnight ity of Supply [facility] 20:43: pulse ox. T ex Has Medical shallow Branch breathing at night. Required O2 at night in the past. Has O2 at home but only supposed to use for daytime. Please check overnight pulse ox WITHOUT oxygen use overnight. traZODONE Yes [id number] 100mg Take 1 U nivers 100 mg 3-27 tablet by ity of tablet 00:00: mouth at [place] [address] bedtime. Medical Branch traZODONE Yes [id number] 100mg Take 1 U nivers 100 mg 3-27 tablet by ity of tablet 00:00: mouth at [place] [address] bedtime. Medical Branch traZODONE Yes [id number] 100mg Take 1 U nivers 100 mg 3-27 tablet by ity of tablet 00:00: mouth at [place] [address] bedtime. Medical Branch traZODONE 2018- Yes [id number] 100mg Take 1 U nivers 100 mg 3-27 tablet by ity of tablet 00:00: mouth at [place] [address] bedtime. Medical Branch traZODONE Yes [id number] 100mg Take 1 U nivers 100 mg 3-27 tablet by ity of tablet 00:00: mouth at [place] [address] bedtime. Medical Branch traZODONE 0 Yes [id number] 100mg Take 1 U nivers 100 mg 3-27 tablet by ity of tablet 00:00: mouth at [place] [address] bedtime. Medical Branch traZODONE 2018-0 Yes [id number] 100mg Take 1 U nivers 100 mg 3-27 tablet by ity of tablet 00:00: mouth at [place] [address] bedtime. Medical Branch traZODONE 0 Yes [id number] 100mg Take 1 U nivers 100 mg 3-27 tablet by ity of tablet 00:00: mouth at [place] [address] bedtime. Medical Branch traZODONE 2018-0 Yes [id number] 100mg Take 1 U nivers 100 mg 3-27 tablet by ity of tablet 00:00: mouth at [place] [address] bedtime. Medical Branch traZODONE 2018- Yes [id number] 100mg Take 1 U nivers 100 mg 3-27 tablet by ity of tablet 00:00: mouth at [place] [address] bedtime. Medical Branch traZODONE 2019-0 Yes [id number] 100mg Take 1 U nivers 100 mg 3-27 tablet by ity of tablet 00:00: mouth at [place] [address] bedtime. Medical Branch traZODONE 2018-0 Yes [id number] 100mg Take 1 U nivers 100 mg 3-27 tablet by ity of tablet 00:00: mouth at [place] [address] bedtime. Medical Branch traZODONE 2018-0 Yes [id number] 100mg Take 1 U nivers 100 mg 3-27 tablet by ity of tablet 00:00: mouth at [place] [address] bedtime. Medical Branch traZODONE 2018- Yes [id number] 100mg Take 1 U nivers 100 mg 3-27 tablet by ity of tablet 00:00: mouth at [place] [address] bedtime. Medical Branch traZODONE 0 Yes [id number] 100mg Take 1 U nivers 100 mg 3-27 tablet by ity of tablet 00:00: mouth at [place] [address] bedtime. Medical Branch traZODONE 2018-0 Yes [id number] 100mg Take 1 U nivers 100 mg 3-27 tablet by ity of tablet 00:00: mouth at [place] [address] bedtime. Medical Branch traZODONE 0 Yes [id number] 100mg Take 1 U nivers 100 mg 3-27 tablet by ity of tablet 00:00: mouth at [place] [address] bedtime. Medical Branch traZODONE 0 Yes [id number] 100mg Take 1 U nivers 100 mg 3-27 tablet by ity of tablet 00:00: mouth at [place] [address] bedtime. Medical Branch traZODONE 2018-0 Yes [id number] 100mg Take 1 U nivers 100 mg 3-27 tablet by ity of tablet 00:00: mouth at [place] [address] bedtime. Medical Branch traZODONE 0 Yes [id number] 100mg Take 1 U nivers 100 mg 3-27 tablet by ity of tablet 00:00: mouth at [place] [address] bedtime. Medical Branch traZODONE 2018-0 Yes [id number] 100mg Take 1 U nivers 100 mg 3-27 tablet by ity of tablet 00:00: mouth at [place] [address] bedtime. Medical Branch Immunizations Ordered Filled Immunization Date Status Comments [facility] e Immunization Name Name Influenza Virus 2018-03-07 Completed Universit y of Vaccine (3+ yrs) 00:00:00 [facility] Influenza Virus 2018-03-07 Completed Universit y of Vaccine (3+ yrs) 00:00:00 [facility] Influenza Virus 2018-03-07 Completed Universit y of Vaccine (3+ yrs) 00:00:00 [facility] Influenza Virus 2018-03-07 Completed Universit y of Vaccine (3+ yrs) 00:00:00 [facility] Influenza Virus 2018-03-07 Completed Universit y of Vaccine (3+ yrs) 00:00:00 [facility] Influenza Virus 2018-03-07 Completed Universit y of Vaccine (3+ yrs) 00:00:00 [facility] Influenza Virus 2018-03-07 Completed Universit y of Vaccine (3+ yrs) 00:00:00 [facility] Influenza Virus 2018-03-07 Completed Universit y of Vaccine (3+ yrs) 00:00:00 [facility] Influenza Virus 2018-03-07 Completed Universit y of Vaccine (3+ yrs) 00:00:00 [facility] Influenza Virus 2018-03-07 Completed Universit y of Vaccine (3+ yrs) 00:00:00 [facility] Influenza Virus 2018-03-07 Completed Universit y of Vaccine (3+ yrs) 00:00:00 [facility] Influenza Virus 2018-03-07 Completed Universit y of Vaccine (3+ yrs) 00:00:00 [facility] Influenza Virus 2018-03-07 Completed Universit y of Vaccine (3+ yrs) 00:00:00 [facility] Influenza Virus 2018-03-07 Completed Universit y of Vaccine (3+ yrs) 00:00:00 [facility] Influenza Virus 2018-03-07 Completed Universit y of Vaccine (3+ yrs) 00:00:00 [facility] Influenza Virus 2018-03-07 Completed Universit y of Vaccine (3+ yrs) 00:00:00 [facility] Influenza Virus 2018-03-07 Completed Universit y of Vaccine (3+ yrs) 00:00:00 [facility] Influenza Virus 2018-03-07 Completed Universit y of Vaccine (3+ yrs) 00:00:00 [facility] Influenza Virus 2018-03-07 Completed Universit y of Vaccine (3+ yrs) 00:00:00 [facility] Influenza Virus 2018-03-07 Completed Universit y of Vaccine (3+ yrs) 00:00:00 [facility] Influenza Virus 2018-03-07 Completed Universit y of Vaccine (3+ yrs) 00:00:00 [facility] Influenza High Dose 2017-06-02 Completed Unive rsity of 00:00:00 [facility] Influenza High Dose 2017-06-02 Completed Unive rsity of 00:00:00 [facility] Influenza High Dose 2017-06-02 Completed Unive rsity of 00:00:00 [facility] Influenza High Dose 2017-06-02 Completed Unive rsity of 00:00:00 [facility] Influenza High Dose 2017-06-02 Completed Unive rsity of 00:00:00 [facility] Influenza High Dose 2017-06-02 Completed Unive rsity of 00:00:00 [facility] Influenza High Dose 2017-06-02 Completed Unive rsity of 00:00:00 [facility] Influenza High Dose 2017-06-02 Completed Unive rsity of 00:00:00 [facility] Influenza High Dose 2017-06-02 Completed Unive rsity of 00:00:00 [facility] Influenza High Dose 2017-06-02 Completed Unive rsity of 00:00:00 [facility] Influenza High Dose 2017-06-02 Completed Unive rsity of 00:00:00 [facility] Influenza High Dose 2017-06-02 Completed Unive rsity of 00:00:00 [facility] Influenza High Dose 2017-06-02 Completed Unive rsity of 00:00:00 [facility] Influenza High Dose 2017-06-02 Completed Unive rsity of 00:00:00 [facility] Influenza High Dose 2017-06-02 Completed Unive rsity of 00:00:00 [facility] Influenza High Dose 2017-06-02 Completed Unive rsity of 00:00:00 [facility] Influenza High Dose 2017-06-02 Completed Unive rsity of 00:00:00 [facility] Influenza High Dose 2017-06-02 Completed Unive rsity of 00:00:00 [facility] Influenza High Dose 2017-06-02 Completed Unive rsity of 00:00:00 [facility] Influenza High Dose 2017-06-02 Completed Unive rsity of 00:00:00 [place] [facility] Influenza High Dose 2017-06-02 Completed Unive rsity of 00:00:00 [place] [facility] Pneumococcal 13 2015-10-22 Completed Universit y of Conjugate, PCV13 00:00:00 [place] Me [facility] (Prevnar 13) Branch Pneumococcal 13 2015-10-22 Completed Universit y of Conjugate, PCV13 00:00:00 [place] Me dical (Prevnar 13) Branch Pneumococcal 13 2015-10-22 Completed Universit y of Conjugate, PCV13 00:00:00 [place] Me dical (Prevnar 13) Branch Pneumococcal 13 2015-10-22 Completed Universit y of Conjugate, PCV13 00:00:00 [place] Me dical (Prevnar 13) Branch Pneumococcal 13 2015-10-22 Completed Universit y of Conjugate, PCV13 00:00:00 [place] Me [facility]ical (Prevnar 13) Branch Pneumococcal 13 2015-10-22 Completed Universit y of Conjugate, PCV13 00:00:00 [place] Me [facility]ical (Prevnar 13) Branch Pneumococcal 13 2015-10-22 Completed Universit y of Conjugate, PCV13 00:00:00 [place] Me [facility]ical (Prevnar 13) Branch Pneumococcal 13 2015-10-22 Completed Universit y of Conjugate, PCV13 00:00:00 [place] Me [facility]ical (Prevnar 13) Branch Pneumococcal 13 2015-10-22 Completed Universit y of Conjugate, PCV13 00:00:00 [place] Me [facility]ical (Prevnar 13) Branch Pneumococcal 13 2015-10-22 Completed Universit y of Conjugate, PCV13 00:00:00 [place] Me dical (Prevnar 13) Branch Pneumococcal 13 2015-10-22 Completed Universit y of Conjugate, PCV13 00:00:00 [place] Me dical (Prevnar 13) Branch Pneumococcal 13 2015-10-22 Completed Universit y of Conjugate, PCV13 00:00:00 [place] Me [facility]ical (Prevnar 13) Branch Pneumococcal 13 2015-10-22 Completed Universit y of Conjugate, PCV13 00:00:00 [place] Me [facility]ical (Prevnar 13) Branch Pneumococcal 13 2015-10-22 Completed Universit y of Conjugate, PCV13 00:00:00 [place] Me [facility]ical (Prevnar 13) Branch Pneumococcal 13 2015-10-22 Completed Universit y of Conjugate, PCV13 00:00:00 [place] Me [facility]ical (Prevnar 13) Branch Pneumococcal 13 2015-10-22 Completed Universit y of Conjugate, PCV13 00:00:00 [place] Me [facility]ical (Prevnar 13) Branch Pneumococcal 13 2015-10-22 Completed Universit y of Conjugate, PCV13 00:00:00 [place] [facility] (Prevnar 13) Branch Pneumococcal 13 2015-10-22 Completed Universit y of Conjugate, PCV13 00:00:00 [place] [facility] (Prevnar 13) Branch Pneumococcal 13 2015-10-22 Completed Universit y of Conjugate, PCV13 00:00:00 [place] Me [facility] (Prevnar 13) Branch Pneumococcal 13 2015-10-22 Completed Universit y of Conjugate, PCV13 00:00:00 [place] Me [facility]ical (Prevnar 13) Branch Pneumococcal 13 2015-10-22 Completed Universit y of Conjugate, PCV13 00:00:00 [facility] dical (Prevnar 13) Branch Tetanus/Diptheria 2011-01-13 Completed Univers ity of 00:00:00 [facility] Tetanus/Diptheria 2011-01-13 Completed Univers ity of 00:00:00 [facility] Tetanus/Diptheria 2011-01-13 Completed Univers ity of 00:00:00 [facility] Tetanus/Diptheria 2011-01-13 Completed Univers ity of 00:00:00 [facility] Tetanus/Diptheria 2011-01-13 Completed Univers ity of 00:00:00 [facility] Tetanus/Diptheria 2011-01-13 Completed Univers ity of 00:00:00 [facility] Tetanus/Diptheria 2011-01-13 Completed Univers ity of 00:00:00 [facility] Tetanus/Diptheria 2011-01-13 Completed Univers ity of 00:00:00 [facility] Tetanus/Diptheria 2011-01-13 Completed Univers ity of 00:00:00 [facility] Tetanus/Diptheria 2011-01-13 Completed Univers ity of 00:00:00 [facility] Tetanus/Diptheria 2011-01-13 Completed Univers ity of 00:00:00 [facility] Tetanus/Diptheria 2011-01-13 Completed Univers ity of 00:00:00 [facility] Tetanus/Diptheria 2011-01-13 Completed Univers ity of 00:00:00 [facility] Tetanus/Diptheria 2011-01-13 Completed Univers ity of 00:00:00 [facility] Tetanus/Diptheria 2011-01-13 Completed Univers ity of 00:00:00 [facility] Tetanus/Diptheria 2011-01-13 Completed Univers ity of 00:00:00 [facility] Tetanus/Diptheria 2011-01-13 Completed Univers ity of 00:00:00 [facility] Tetanus/Diptheria 2011-01-13 Completed Univers ity of 00:00:00 [facility] Tetanus/Diptheria 2011-01-13 Completed Univers ity of 00:00:00 [facility] Tetanus/Diptheria 2011-01-13 Completed Univers ity of 00:00:00 [facility] Tetanus/Diptheria 2011-01-13 Completed Univers ity of 00:00:00 [facility] Influenza Virus 2008-04-25 Completed Universit y of Vaccine (3+ yrs) 00:00:00 [facility] Pneumococcal 2008-04-25 Completed University o f Polysaccharide, 00:00:00 [place] [facility] PPSV23 (PNEUMOVAX) Branch Influenza Virus 2008-04-25 Completed Universit y of Vaccine (3+ yrs) 00:00:00 [facility] Pneumococcal 2008-04-25 Completed University o f Polysaccharide, 00:00:00 [place] [facility] PPSV23 (PNEUMOVAX) Branch Influenza Virus 2008-04-25 Completed Universit y of Vaccine (3+ yrs) 00:00:00 [facility] Pneumococcal 2008-04-25 Completed University o f Polysaccharide, 00:00:00 [place] [facility] PPSV23 (PNEUMOVAX) Branch Influenza Virus 2008-04-25 Completed Universit y of Vaccine (3+ yrs) 00:00:00 [facility] Pneumococcal 2008-04-25 Completed University o f Polysaccharide, 00:00:00 [place] [facility] PPSV23 (PNEUMOVAX) Branch Influenza Virus 2008-04-25 Completed Universit y of Vaccine (3+ yrs) 00:00:00 [facility] Pneumococcal 2008-04-25 Completed University o f Polysaccharide, 00:00:00 [place] [facility] PPSV23 (PNEUMOVAX) Branch Influenza Virus 2008-04-25 Completed Universit y of Vaccine (3+ yrs) 00:00:00 [facility] Pneumococcal 2008-04-25 Completed University o f Polysaccharide, 00:00:00 [place] [facility] PPSV23 (PNEUMOVAX) Branch Influenza Virus 2008-04-25 Completed Universit y of Vaccine (3+ yrs) 00:00:00 [facility] dical Branch Influenza Virus 2008-04-25 Completed Universit y of Vaccine (3+ yrs) 00:00:00 [facility] dical Branch Pneumococcal 2008-04-25 Completed University o f Polysaccharide, 00:00:00 [place] [facility] ical PPSV23 (PNEUMOVAX) Branch Pneumococcal 2008-04-25 Completed University o f Polysaccharide, 00:00:00 [place] [facility] ical PPSV23 (PNEUMOVAX) Branch Influenza Virus 2008-04-25 Completed Universit y of Vaccine (3+ yrs) [facility] 2008-[facility]25 Completed University o f Polysaccharide, 00:00:00 [place] [facility] PPSV23 (PNEUMOVAX) Branch Influenza Virus 2008-04-25 Completed Universit y of Vaccine (3+ yrs) 00:00:00 [facility] Branch Pneumococcal 2008-04-25 Completed University o f Polysaccharide, 00:00:00 [place] [facility] PPSV23 (PNEUMOVAX) Branch Influenza Virus 2008-04-25 Completed Universit y of Vaccine (3+ yrs) 00:00:00 [facility] Branch Pneumococcal 2008-04-25 Completed University o f Polysaccharide, 00:00:00 [place] [facility] PPSV23 (PNEUMOVAX) Branch Influenza Virus 2008-04-25 Completed Universit y of Vaccine (3+ yrs) 00:00:00 [facility] Branch Pneumococcal 2008-04-25 Completed University o f Polysaccharide, 00:00:00 [place] [facility] PPSV23 (PNEUMOVAX) Branch Influenza Virus 2008-04-25 Completed Universit y of Vaccine (3+ yrs) 00:00:00 [facility] dical Branch Pneumococcal 2008-04-25 Completed University o f Polysaccharide, 00:00:00 [place] [facility] PPSV23 (PNEUMOVAX) Branch Influenza Virus 2008-04-25 Completed Universit y of Vaccine (3+ yrs) 00:00[facility] 2008-04-25 Completed University o f Polysaccharide, 00:00:00 [place] [facility] PPSV23 (PNEUMOVAX) Branch Influenza Virus 2008-04-25 Completed Universit y of Vaccine (3+ yrs) 00:00:00 [facility] dical Branch Pneumococcal 2008-04-25 Completed University o f Polysaccharide, 00:00:00 [place] [facility] ical PPSV23 (PNEUMOVAX) Branch Influenza Virus 2008-04-25 Completed Universit y of Vaccine (3+ yrs) 00:00:00 [place] [facility] d[facility] Branch Pneumococcal 2008-04-25 Completed University o f Polysaccharide, 00:00:00 [place] Med ical PPSV23 (PNEUMOVAX) Branch Influenza Virus 2008-04-25 Completed Universit y of Vaccine (3+ yrs) 00:00:00 [facility] dical Branch Pneumococcal 2008-04-25 Completed University o f Polysaccharide, 00:00:00 [place] Med ical PPSV23 (PNEUMOVAX) Branch Influenza Virus 2008-04-25 Completed Universit y of Vaccine (3+ yrs) 00:00:00 [facility] dical Branch Influenza Virus 2008-04-25 Completed Universit y of Vaccine (3+ yrs) 00:00:00 [facility] dical Branch Pneumococcal 2008-04-25 Completed University o f Polysaccharide, 00:00:00 [place] [facility] ical PPSV23 (PNEUMOVAX) Branch Pneumococcal 2008-04-25 Completed University o f Polysaccharide, 00:00:00 [place] [facility] ical PPSV23 (PNEUMOVAX) Branch Influenza Virus 2008-04-25 Completed Universit y of Vaccine (3+ yrs) 00:00:00 [facility] dical Branch Pneumococcal 2008-04-25 Completed University o f Polysaccharide, 00:00:00 [place] [facility] ical PPSV23 (PNEUMOVAX) Branch Influenza Virus 2008-04-25 Completed Universit y of Vaccine (3+ yrs) 00:00:00 [facility] dicky Branch Pneumococcal 2008-04-25 Completed University o f Polysaccharide, 00:00:00 [place] [facility] PPSV23 (PNEUMOVAX) Branch Vital Signs Vital Name Observation Time Observation Value Comments Source Systolic blood 2019-03-20 22:00:00 134 mm[Hg] Univer sity of pressure [facility] Diastolic blood 2019-03-20 22:00:00 53 mm[Hg] Unive rsity of pressure [facility] Heart rate 2019-03-20 22:00:00 67 /[facility] Respiratory rate 2019-03-20 22:00:00 16 /min [facility] O[facility] saturation in 2019-03-20 22:00:00 94 /min University of Arterial blood by [facility] Pulse oximetry Branch Body height 2019-03-20 20:05:48 154.9 cm [facility] [place] [facility] Body temperature 2019-03-20 18:43:00 36.72 [facility] ersity of [place] [facility] Body weight 2019-03-20 18:43:00 50.803 kg [facility] [place] [facility] BMI 2019-03-20 18:43:00 21.16 kg/m2 [facility] [place] [facility] Systolic blood 2019-03-20 17:43:00 129 mm[Hg] Univer sity of pressure [place] [facility] Diastolic blood 2019-03-20 17:43:00 70 mm[Hg] Unive rsity of pressure [place] [facility] Heart rate 2019-03-20 17:43:00 75 /min [facility] [place] [facility] [place] Body temperature 2019-03-20 17:43:00 36.94 Radha Univ [facility] Respiratory rate 2019-03-20 17:43:00 18 /min [facility] Oxygen saturation in 2019-03-20 17:43:00 94 /min University of Arterial blood by [facility] Pulse oximetry Branch Systolic blood 2019-02-22 19:58:00 113 mm[Hg] Univer [facility]ity [facility] Diastolic blood 2019-02-22 19:58:00 68 mm[Hg] Unive [facility] Heart rate 2019-02-22 19:58:00 90 /min [facility] [place] [facility] [place] Body temperature 2019-02-22 19:58:00 36.61 Radha [facility] Respiratory rate 2019-02-22 19:58:00 20 /min [facility] Body height 2019-02-22 19:58:00 160 cm [facility] Body weight 2019-02-22 19:58:00 53.071 kg [facility] BMI 2019-02-22 19:58:00 20.73 kg/m2 [facility] Oxygen saturation in 2019-02-22 19:58:00 96 /min [facility] of Arterial blood by [facility] Pulse oximetry Branch Body weight 2019-03-06 14:31:00 51.529 kg [facility] BMI 2019-03-06 14:31:00 20.12 kg/m2 Universi ty of [facility] Oxygen saturation in 2019-03-06 14:31:00 95 /min [facility] of Arterial blood by [facility] Pulse oximetry Branch Systolic blood 2019-03-06 14:31:00 133 mm[Hg] Univer sity of pressure [facility] Diastolic blood 2019-03-06 14:31:00 68 mm[Hg] Unive rsity of pressure [facility] Heart rate 2019-03-06 14:31:00 77 /min Universi ty of [facility] Body temperature 2019-03-06 14:31:00 36.5 Radha [facility] Respiratory rate 2019-03-06 14:31:00 18 /min [facility] Systolic blood 2018-11-22 20:50:00 138 mm[Hg] Univer [facility]ity of [facility] Diastolic blood 2018-11-22 20:50:00 67 mm[Hg] Unive rsity of pressure [facility] Heart rate 2018-11-22 20:50:00 83 /min [facility] [place] [facility] [place] Body temperature 2018-11-22 20:50:00 36.28 Radha [facility] Respiratory rate 2018-11-22 20:50:00 16 /min [facility] height 2018-11-22 20:50:00 154.9 cm Universi ty [facility] Body weight 2018-11-22 20:50:00 53.524 kg Universi ty [facility] BMI 2018-11-22 20:50:00 22.30 kg/m2 Universi ty [facility] Oxygen saturation in 2018-11-22 20:50:00 94 /min [facility] Arterial blood by [facility] Pulse oximetry Branch Procedures Procedure Date / Time Performing Clinician Source Performed ASSIGNMENT OF BENEFITS 2020-07-07 20:24:07 Doctor Unassigned, [facility] [place] [facility] URINALYSIS 2019-03-20 22:01:00 Geraldo Lr [place] o f [facility] CT ABDOMEN PELVIS WO 2019-03-20 21:20:09 Geraldo Lr [facility] XR CHEST 1 VW 2019-03-20 19:15:15 Geraldo Lr [facility] LIPASE 2019-03-20 19:14:00 Geraldo Lr [facility] TROPONIN I 2019-03-20 19:14:00 Geraldo Lr [facility] HEPATIC FUNCTION PANEL 2019-03-20 19:14:00 Geraldo Lr [facility] ([id number]) (ALB,T.PRO,BILI Medical Branch T,BU/BC,ALT,AST,ALK PHOS) BASIC METABOLIC PANEL (NA, 2019-03-20 19:14:00 Geraldo Lr [facility] K, CL, CO2, GLUCOSE, BUN, Medica l Branch CREATININE, CA) CBC WITH DIFFERENTIAL 2019-03-20 19:14:00 Geraldo Lr [facility] CONSENT/REFUSAL FOR 2019-03-20 18:24:27 Doctor Unassigned, [facility] DIAGNOSIS AND TREATMENT [facility] NO SHOW OR MISSED 2019-02-22 19:15:06 Doctor Unassigned, [facility] APPOINTMENT POLICY [place] [facility] h ACKNOWLEDGEMENT DME/SUPPLY JUSTIFICATION 2018-12-04 05:01:00 Doctor Unassigned, [facility] Encounters Start End Encounter Admission Attending Care Care Encounter Source Date/Time Date/Time Type Type Clinicians Facility Department ID 2022-01-13 Outpatient STLMLC STLMLC [id number] Common 14:08:00 [facility] 2021-10-05 Outpatient STLMLC STLMLC [id number] Common 08:53:01 [facility] 2021-08-11 Outpatient STLMLC STLMLC [id number] Common 13:33:04 [facility] 2022-01-20 2022-01-20 ambulatory STLMLC STLMLC [id number] Common 00:00:00 00:00:00 [facility] 2022-01-13 2022-01-13 ambulatory STLMLC STLMLC [id number] Common 00:00:00 00:00:00 [facility] 2020-08-13 2020-08-13 Outpatient [facility] [id number] [address] [place] 00:00:00 00:00:[address] 2020-07-23 2020-07-23 Outpatient [facility] [id number] [address] [place] 00:00:00 00:00:[address] 2020-07-07 2020-07-07 Laboratory Only, [facility] Test [facility] 1.2.840. 114 [id number] Univers 14:25:08 14:40:08 Only Ousmane Vides [id number] ity [place] [phone] [facility] [address] [place] 2020-07-07 2020-07-07 Laboratory Only, [facility] 1.2.840.114 [id number] 14:25:08 14:40:08 Only Celsa Byrd 350.1.13.10 [place] [id number] [place] [phone] [facility] 2020-07-07 2020-07-07 Outpatient R [facility] [id number] Univers 14:30:00 14:30:00 [id number] ity of [facility] 2020-07-07 2020-07-07 Outpatient R [facility] [id number] Univers 14:30:00 14:30:00 ity of [facility] 2020-07-07 2020-07-07 Orders Doctor FOREIGN 1.2.840.114 [id number] Univers 00:00:00 00:00:00 Only Unassigned, ALICIA [id number] [facility] [facility] 4.2.7.2.686 [place] as [phone] [facility] 009 Branch 2020-07-07 2020-07-07 Telephone Naif [facility] 1.2.840.114 [id number] Univers 00:00:00 00:00:00 Tamia Byrd [id number] [place] [phone] [address] 2020-07-07 2020-07-07 Telephone Naif [facility] 1.2.840.114 [id number] 00:00:00 00:00:00 Tamia Byrd 350.1.13.10 [place] 4.2.7.2.686 Professio [phone] [address] 2019-03-22 2019-03-22 Telephone [facility] 1.2.840.114 [id number] Univers 00:00:00 00:00:00 Chencho Byrd [id number] i ty [place] [phone] [facility] [address] [facility] 2019-03-21 2019-03-21 Pre Visit [facility] 1.2.840.114 [id number] Univers 00:00:00 00:00:00 Outreach Tamia Byrd [id number] [place] [phone] [address] 2019-03-21 2019-03-21 Telephone [facility] 1.2.840.114 [id number] Univers 00:00:00 00:00:00 Chencho Lechuga [id number] it y of [place] 4.2.7.2.686 [place] Professio [phone] [address] Office [facility] 2019-03-20 2019-03-[address] [facility] [id number] [facility] 13:45:40 17:48:00 Geraldo Byrd 350.1.13.10 i ty [place] [phone] [address] 2019-03-20 2019-03-20 Office [facility] 1.2.840.114 [id number] [facility] 12:31:42 13:16:54 Visit Chencho Byrd 350.1.13.10 i ty [place] [phone] [address] 2019-02-22 2019-03-11 Office [facility] 1.2.840.114 [id number] [facility] 14:14:28 07:28:29 Visit Tamia Byrd 350.1.13.10 ity [place] [phone] [facility] [address] [facility] 2019-03-11 2019-03-11 Telephone [facility] 1.2.840.114 [id number] Univers 00:00:00 00:00:00 Tamia Byrd 350.1.13.10 ity [place] [phone] [facility] [address] [facility] 2019-03-06 2019-03-06 [facility] 1.2.840.114 [id number] Univers 09:20:55 10:36:45 Visit Chencho Byrd 350.1.13.10 i ty [place] [phone] [facility] [address] [facility] 2019-03-05 2019-03-05 Telephone [facility] 1.2.840.114 [id number] Univers 00:00:00 00:00:00 Tamia Byrd 350.1.13.10 it[place] [phone] [address] 2019-02-22 2019-02-22 Orders Doctor CARRASQU[place]O 1.2.840.114 [id number] Univers 00:00:00 00:00:00 Only Unassigned, ALICIA 350.1.13.10 ity of [place] [facility] 4.2.7.2.686 [place] [phone] [address] 2018-12-04 2018-12-04 Orders Doctor FOREIGN 1.2.840.114 [id number] Univers 00:00:00 00:00:00 Only Unassigned, ALICIA 350.1.13.10 ity of [place] [facility] 4.2.7.2.686 [place] as [phone] [address] 2018-11-22 2018-11-22 Office [facility] 1.2.840.114 [id number] Univers 15:39:03 16:40:40 [facility]13.10 [facility] 4.2.7.2.686 Artur Calix [phone] [facility] [address] [facility] Results Test Description Test Time Test Comments Results Result Comments Source Urinalysis 2019-03-20 22:23:00 Test Item Value Reference Range Interpretation Comme nts APPEARANCE (test code = Clear Clear 6882690291) COLOR (test code = 0132177440) Colorless Yellow A PH (test code = 3853744055) 4.8-8.0 SP GRAVITY (test code = 1.003-1.030 9671258283) GLU U QUAL (test code = Negative Negative 0957713752) BLOOD (test code = 8429361216) Large Negative A KETONES (test code = 8286071948) Negative Negative PROTEIN (test code = 2887-8) 30 mg/dL Negative A UROBILIN (test code = 0.2 mg/dL See_Comment [Auto mated message] The 1223760621) system which [email or web address] nerated this result transmit soraya reference range: 0-1.0 mg /dL. The reference range was not used to interpret th is result as normal/abnormal . BILIRUBIN (test code = Negative Negative 9513012501) NITRITE (test code = 7960923984) Negative Negative LEUK KALYANI (test code = Small Negative A 8640666326) RBC/HPF (test code = 8707232716) See_Comment [Automated message] The system which [email or web address] nerated this result transmit soraya reference range: 0 - 3 HP F. The reference range was not used to interpret th is result as normal/abnormal . WBC/HPF (test code = 5183091805) See_Comment H [Automated message] The system which [email or web address] nerated this result transmit soraya reference range: 0 - 5 HP F. The reference range was not used to interpret th is result as normal/abnormal . BACTERIA (test code = Negative Negative 2021757800) AMORPHOUS (test code = Few HPF 3316996317) Lab Interpretation (test code = Abnormal 60416-0) [facility] [id number] 21:24:28CT Abdomen and Pelvis without contrast. CLINICAL HISTORY: Flank pain. Recurrent stone disease is suspected TECHNIQUE: Multidetector helical CT acquisition was obtained from the lungbases to the greatertrochanters without oral and IV contrast.?The imageswere reviewed in lung, bone, and soft tissue windows. FINDINGS:?Absence of intravenous contrast limits evaluation of the solidorgans. Evaluation of the bowel is also limited by lack of oral contrast.No prior study is available for comparison. Lower lungs: Clear. No pleural effusion or pericardial effusion. Shortsliding hiatal hernia noted. Liver, Gallbladder and Spleen:Normal sized liver and spleen. Possible 4 mm cystic lesion in the leftlobe. No calcified gallstones. Biliary ducts and the pancreatic duct appearof normal size. Peritoneum:?No free air or free fluid. No lymphadenopathy. Pancreas and Adrenals:?Unremarkable pancreas and adrenal glands. Fattyreplacement of portions of the head of the pancreas noted. Kidneys and Ureters:?No visible calculi in the renal collecting systems. No hydroureter or hydronephrosis. At the lower pole of the right kidney,there is a small 7 mm low- density lesion and in the posterior cortex nearthe upper pole of left kidney, there is an 8 mm low-density lesion whichcould be incidental small cysts. Vessels: Atherosclerosis. No aortic aneurysm. Retroperitoneum: No abnormal fluid or lymphadenopathy. Bowel: Constipation. Normal appendix. Unremarkable small bowel gas pattern. Bladder?and Reproductive Organs: Hysterectomy. No gross pathology inincompletely distended urinary bladder. Bones: Lumbar lordosis with postsurgical changes at lower 2 lumbar levels.Right hip joint arthritis. Soft tissues: 3.5 x 2 cm size epigastric hernia containing fat and smallblood vessels without any signs of strangulation or incarceration. CONCLUSION: No acute findings detected in CT scan of abdomen and pelvis.Specifically no kidneystones or hydronephrosis. [facility], Radiant Results Inft User - 03/20/2019 4:26 PM CDTCT Abdomen and Pelvis without contrast.CLINICAL HISTORY: Flank pain. Recurrent stone disease is suspectedTECHNIQUE: Multidetector helical CT acquisition was obtained from the lungbases to the greater trochanters without oral and IV contrast. The imageswere reviewed in lung, bone, and soft tissue windows.FINDINGS:Absence of intravenous contrast limits evaluation of the solidorgans. Evaluation of the bowel is also limited by lack of oral contrast.No prior study is available for comparison. Lower lungs: Clear. Nopleural effusion or pericardial effusion. Shortsliding hiatal hernia noted.Liver, Gallbladder and Spleen:Normal sized liver and spleen. Possible 4 mm cystic lesion in the leftlobe. No calcified gallstones. Biliary ducts and the pancreatic duct appearof normal size.Peritoneum: No free air or free fluid. No lymphadenopathy.Pancreas and Adrenals: Unremarkable pancreas and adrenal glands. Fattyreplacement of portions of the head of the pancreas noted.Kidneys and Ureters: No visible calculi in the renal collecting systems. No hydroureter or hydronephrosis. At the lower pole of the right kidney,there is a small 7 mm low-density lesion and in the posterior cortex nearthe upper pole of left kidney, there is an 8 mm low-density lesion whichcould be incidental small cysts.Vessels: Atherosclerosis. No aortic aneurysm.Retroperitoneum: No abnormal fluid or lymphadenopathy.Bowel: Constipation. Normal appendix. Unremarkable small bowel gas pattern.Bladder and Reproductive Organs: Hysterectomy. No gross pathology inincompletely distended urinary bladder. Bones: Lumbar lordosis with post surgical changes at lower 2 lumbar levels.Right hip joint arthritis.Soft tissues: 3.5 x 2 cm size epigastric hernia containing fat and smallblood vessels without any signs of strangulation or incarceration.CONCLUSION: Noacute findings detected in CT scan of abdomen and pelvis.Specifically no kidney stones or hydronephrosis.[facility] [id number] 20:10:00 Test Item Value Reference Range Interpretation Comments TROPONIN I (test <0.012 See_Comment [Automated code = 7675588424) message] The system which generated this result transmitted reference range : <=0.034 ng/mL. The reference range was not used to interpr et this result as normal/abnormal . MEGHNA (test code = Equal or Less than MEGHNA) 0.034 ng/ml---Normal?Not e: Cardiac troponin begins to rise 3-4 hours after the onset of ischemia. Repeat in 4-6 hours if the sample was drawn within 3-4 hours of the onset of the symptom and found normal. Between 0.035 and 0.120 ng/mL--- Borderline. Questionable myocardial injury or necrosis?Note: Serial measurement may be necessary to confirm or exclude the diagnosis of myocardial injury or necrosis; Clinical correlation (symptoms, EKGs, imaging studies, and others) required; Repeat in 4-6 hours if clinically indicated.? Equal or Higher than 0.121 ng/mL---Abnormal. Myocardial Injury or Necrosis Likely?? Biotin has been reported to cause a negative bias, interpret results relative to patient's use of biotin.? ? Lab Interpretation Normal (test code = 77809-9) [facility] Metabolic Panel (NA, K, CL, CO2, GLUCOSE, BUN, CREATININE, CA)2019-03-20 19:58:00 Test Item Value Reference Range Interpretation Comments NA (test code = 143 mmol/L 135-145 4935438535) K (test code = 3.4 mmol/L 3.5-5 L 9614879012) CL (test code = 104 mmol/L 98-108 0573768944) CO2 TOTAL (test code = 28 mmol/L 23-31 8571812894) AGAP (test code = 2-16 4954884789) BUN (test code = 19 mg/dL 7-23 9348379545) GLUCOSE (test code = 106 mg/dL 70-110 1475332908) CREATININE (test code = 1.54 mg/dL 0.5-1.04 H 9962192162) CALCIUM (test code = 9.4 mg/dL 8.6-10.6 6855637009) eGFR Calculation mL/min/1.73m2 (Non-) (test code = 2532439726) eGFR Calculation mL/min/1.73m2 () (test code = 3790467933) MEGHNA (test code = MEGHNA) Association of Glomerular Filtration Rate (GFR) and Staging of Kidney Disease*+ + + +| GFR (mL/min/1.73 m2)?| With Kidney Damage?|?Without Kidney Damage+ --------+ --------+ +|?>90?|?S tage one?|? Normal?+ ---------+ ---------+ +|?60-89? |?Stage two?|? Decreased GFR? + --+ --+ ------+|?30-59?|?Stage three?|? Stage three? + --+ --+ ------+|?15-29?|?Stage four? |? Stage four?+ -------+ -------+ +|?<15 (or dialysis)?|?Stage five? |? Stage five?+ -------+ -------+ +*Each stage assumes the associated GFR level has been in effect for at least three months.?Stages 1 to 5, with or without kidney disease, indicate chronic kidney disease.Notes: Determination of stages one and two (with eGFR >59mL/min/1.73 m2) requires estimation of kidney damage for at least three months as defined by structural or functional abnormalities of the kidney, manifested by either:Pathological abnormalities or Markers of kidney damage (including abnormalities in the composition of the blood or urine or abnormalities in imaging tests). Lab Interpretation Abnormal (test code = 13793-9) [facility] (ALB, T.PRO, BILI T, BU/BC, ALT, AST, ALK PHOS)2019-03-20 19:58:00 Test Item Value Reference Range Interpretation Comments TOTAL BILI (test code = 5994129114) 0.6 mg/dL 0.1-1.1 BILI UNCON (test code = 0277811392) 0.3 mg/dL 0.1-1.1 BILI CONJ (test code = 2976214610) 0.0 mg/dL 0-0.3 T PROTEIN (test code = 7936613472) 8.1 g/dL 6.3-8.2 ALBUMIN (test code = 5154446502) 4.3 g/dL 3.5-5 ALK PHOS (test code = 8514207560) 132 U/L 34-122 H ALT(SGPT) (test code = 7528037743) 107 U/L 9-51 H AST(SGOT) (test code = 3038490914) 110 U/L 13-40 H Lab Interpretation (test code = Abnormal 94600-6) [facility] [id number] 19:58:00 Test Item Value Reference Range Interpretation Comments LIPASE (test code = 5773735844) 202 U/L 0-220 Lab Interpretation (test code = Normal 43377-4) [facility] Hospital[facility] WITH [id number] 19:47:00 Test Item Value Reference Range Interpretation Comments WBC (test code = See_Comment [Automated 8057-2) message] The sy stem which generated this result transmitted reference range : 4.30 - 11.10 10*3/?L. The reference range was not used to interpret this result as normal/abnormal . RBC (test code = See_Comment [Automated 886-8) message] The sy stem which generated this result transmitted reference range : 3.93 - 5.25 10*6/?L. The reference range was not used to interpret this result as normal/abnormal . HGB (test code = 14.5 g/dL 11.6-15 718-7) HCT (test code = 46.3 % 35.7-45.2 H 4544-3) MCV (test code = 94.5 fL 80.6-95.5 787-2) MCH (test code = 29.6 pg 25.9-32.8 785-6) MCHC (test code = 31.3 g/dL 31.6-35.1 L 786-4) RDW-SD (test code = 48.7 fL 39-49.9 52845-4) RDW-CV (test code = 14.0 % 12-15.5 788-0) PLT (test code = See_Comment [Automated 777-3) message] The sy stem which generated this result transmitted reference range : 166 - 358 10*3/ ?L. The reference r abad was not used to interpret this result as normal/abnormal . MPV (test code = 10.5 fL 9.5-12.9 14750-7) NRBC/100 WBC (test See_Comment [Automat ed code = 8485593151) message] The system which generated this result transmitted reference range : 0.0 - 10.0 /100 WBCs. The refer ence range was not u sed to interpret th is result as normal/abnormal . NRBC x10^3 (test code <0.01 See_Comment [Auto mated = 8017331243) message] The s ystem which generated this result transmitted reference range : 10*3/?L. The reference range was not used to interpret this result as normal/abnormal . GRAN MAT (NEUT) % 59.2 % (test code = 770-8) IMM GRAN % (test code 0.40 % = 7381017805) LYMPH % (test code = 32.4 % 736-9) MONO % (test code = 6.0 % 5905-5) EOS % (test code = 1.4 % 713-8) BASO % (test code = 0.6 % 706-2) GRAN MAT x10^3(ANC) 5.97 10*3/uL 1.88-7.09 (test code = 0098205273) IMM GRAN x10^3 (test 0.04 10*3/uL 0-0.06 code = 0598261888) LYMPH x10^3 (test code 3.26 10*3/uL 1.32-3.29 = 731-0) MONO x10^3 (test code 0.60 10*3/uL 0.33-0.92 = 742-7) EOS x10^3 (test code = 0.14 10*3/uL 0.03-0.39 711-2) BASO x10^3 (test code 0.06 10*3/uL 0.01-0.07 = 704-7) Lab Interpretation Abnormal (test code = 81854-4) [facility] 1 [id number] 19:17:17HISTORY: Weakness. TECHNIQUE: Portable AP erect view of the chest is obtained. No prior cheststudy available for comparison. FINDINGS: No acute pneumonia. No pneumothorax or pleural effusion orpulmonary congestion detected. Cardiac size is within normal limits.Midline sternotomy sutures noted from previous thoracic surgery withnumerous metallic clips noted in the left side of the mediastinum. Smallcalcified granuloma suspected in the retrocardiac left lower lung. CONCLUSIONS: No signs of acute cardiopulmonary disease. [facility], Radiant Results Inft User - 03/20/2019 2:19 PM CDTHISTORY: Weakness.TECHNIQUE: Portable AP erect view of the chest is obtained. No prior cheststudy available for comparison.FINDINGS: No acute pneumonia. No pneumothorax or pleural effusion orpulmonary congestion detected. Cardiac size is within normal limits.Midline sternotomy sutures noted from previous thoracic surgery withnumerous metallic clips noted in the left side of the mediastinum. Smallcalcified granuloma suspectedin the retrocardiac left lower lung.CONCLUSIONS: No signs of acute cardiopulmonary disease.[facility]"
[2022-02-07 08:02] LABS: Absolute Lymphocytes (CBC) 1.9 K/uL (0.7-4.9); Hematocrit 40.1 % (36.0-45.0); Lymphocytes % 14.5 % (15.3-44.8); MCV 87.9 fL (80-100); MPV 8.8 fL (7.6-11.3); RBC Red Blood Cell Count 4.57 M/uL (3.86-4.86)
[2022-02-07] MEDS ORDERED: NA CHLORIDE 0.9% 500 ML ONE ×2 (08:05→12:27)
[2022-02-07] MEDS ORDERED: NA CHLORIDE 0.9% 1,000 ML ONE (08:05)
[2022-02-07 08:06] LABS: Protime INR 1.07
[2022-02-07] MEDS ORDERED: FAMOTIDINE 20 MG/2 ML VIAL IV ONE (08:06)
[2022-02-07 08:21] LABS: Albumin 2.6 g/dL (3.4-5.0); Bilirubin Direct 0.2 mg/dL (0-0.2); Bilirubin Total 0.5 mg/dL (0.2-1.0); Magnesium 2.1 mg/dL (1.8-2.4); Potassium 3.6 mmol/L (3.5-5.1)
[2022-02-07 08:24] LABS: Troponin High Sensitivity 614.7 pg/mL (<58.9)
--- NOTE | 2022-02-07 08:43 | EDPHYS ---
Physician Documentation [facility] Name: Michaela Matias Age: 81 yrs Sex: Female : 1940 Arrival Date: 02/07/2022 Time: 07:00 Bed 20 Private MD: ED Physician Chinedu Armenta HPI: 02/07 07:42 This 81 yrs old Female presents to ER via Wheelchair with complaints of Chest maranda Pain > 30 y/o. 07:42 The patient or guardian reports chest pain that is located primarily in the substernal maranda area. Onset: 2 day(s) ago. The pain does not radiate. Associated signs and symptoms: The patient has no apparent associated signs or symptoms. The chest pain is described as aching. Duration: The patient or guardian reports a single episode, that is still ongoing. Modifying factors: The symptoms are alleviated by nothing. the symptoms are aggravated by nothing. Severity of pain: At its worst the pain was mild in the emergency department the pain is unchanged. It is unknown whether or not the patient has had similar symptoms in the past. Historical: - Allergies: 07:10 Demerol; ap3 - Home Meds: 14:19 aspirin 81 mg Oral TbEC 1 tab once daily [Active]; carvedilol 3.125 mg Oral tab 1 tab 2 jg9 times per day [Active]; donepezil 10 mg Oral tab 1 tab once daily [Active]; omeprazole 20 mg Oral cpDR 1 cap once daily [Active]; rosuvastatin 20 mg Oral tab 1 tab once daily [Active]; - PMHx: 07:10 Alzheimers; Dementia; High Cholesterol; Hypertension; ap3 - PSHx: 07:10 back sx; cardiac bypass; ap3 - Immunization history:: Client reports receiving the 2nd dose of the Covid vaccine. - Social history:: Smoking status: Patient denies any tobacco usage or history of. - Family history:: not pertinent. ROS: 07:42 Constitutional: Negative for fever, chills, and weight loss, Eyes: Negative for injury, maranda pain, redness, and discharge, ENT: Negative for injury, pain, and discharge, Neck: Negative for injury, pain, and swelling, Respiratory: Negative for shortness of breath, cough, wheezing, and pleuritic chest pain, Abdomen/GI: Negative for abdominal pain, nausea, vomiting, diarrhea, and constipation, Back: Negative for injury and pain, : Negative for injury, bleeding, discharge, and swelling, MS/Extremity: Negative for injury and deformity, Skin: Negative for injury, rash, and discoloration, Neuro: Negative for headache, weakness, numbness, tingling, and seizure, Psych: Negative for depression, anxiety, suicide ideation, homicidal ideation, and hallucinations, Allergy/Immunology: Negative for hives, rash, and allergies, Endocrine: Negative for neck swelling, polydipsia, polyuria, polyphagia, and marked weight changes, Hematologic/Lymphatic: Negative for swollen nodes, abnormal bleeding, and unusual bruising. 07:42 Cardiovascular: Positive for chest pain. Exam: 07:42 Constitutional: This is a well developed, well nourished patient who is awake, alert, maranda and in no acute distress. Head/Face: Normocephalic, atraumatic. Eyes: Pupils equal round and reactive to light, extra-ocular motions intact. Lids and lashes normal. Conjunctiva and sclera are non-icteric and not injected. Cornea within normal limits. Periorbital areas with no swelling, redness, or edema. ENT: Nares patent. No nasal discharge, no septal abnormalities noted. Tympanic membranes are normal and external auditory canals are clear. Oropharynx with no redness, swelling, or masses, exudates, or evidence of obstruction, uvula midline. Mucous membranes moist. Neck: Trachea midline, no thyromegaly or masses palpated, and no cervical lymphadenopathy. Supple, full range of motion without nuchal rigidity, or vertebral point tenderness. No Meningismus. Chest/axilla: Normal chest wall appearance and motion. Nontender with no deformity. No lesions are appreciated. Cardiovascular: Regular rate and rhythm with a normal S1 and S2. No gallops, murmurs, or rubs. Normal PMI, no JVD. No pulse deficits. Respiratory: Lungs have equal breath sounds bilaterally, clear to auscultation and percussion. No rales, rhonchi or wheezes noted. No increased work of breathing, no retractions or nasal flaring. Abdomen/GI: Soft, non-tender, with normal bowel sounds. No distension or tympany. No guarding or rebound. No evidence of tenderness throughout. Back: No spinal tenderness. No costovertebral tenderness. Full range of motion. Female : Normal external genitalia. Skin: Warm, dry with normal turgor. Normal color with no rashes, no lesions, and no evidence of cellulitis. MS/ Extremity: Pulses equal, no cyanosis. Neurovascular intact. Full, normal range of motion. Neuro: Awake and alert, GCS 15, oriented to person, place, time, and situation. Cranial nerves II-XII grossly intact. Motor strength 5/5 in all extremities. Sensory grossly intact. Cerebellar exam normal. Normal gait. Psych: Awake, alert, with orientation to person, place and time. Behavior, mood, and affect are within normal limits. 07:47 ECG was reviewed by the Attending Physician. maranda 09:33 ECG was reviewed by the Attending Physician. [facility] Vital Signs: 07:08 BP 138 / 74; Pulse 101; Resp 18; Temp 99.2; Pulse Ox 95% ; Weight 47.63 kg; Height 5 ap3 ft. 2 in. (157.48 cm); Pain 4/10; 07:20 BP 155 / 66 RA Supine; Pulse 102; Resp 20 S; Pulse Ox 94% on R/A; Pain 4/10; ha1 07:20 Temp 99.7(O); ha1 08:15 BP 152 / 75 LA Supine; Pulse 90; Resp 20 S; Pulse Ox 96% on R/A; ha1 09:15 BP 166 / 69 LA Supine; Pulse 93; Resp 21; Pulse Ox 96% on R/A; ha1 10:15 BP 127 / 66 LA Supine; Pulse 95; Resp 21 S; Pulse Ox 93% on R/A; ha1 11:15 BP 121 / 89 Supine; Pulse 94; Resp 20 S; Temp 98.4(O); Pulse Ox 94% on R/A; ha1 12:40 BP 122 / 90; Pulse 98; Resp 21 S; Pulse Ox 94% on R/A; ha1 07:08 Body Mass Index 19.20 (47.63 kg, 157.48 cm) ap3 MDM: 07:26 Patient medically screened. maranda 07:42 Differential diagnosis: abnormal EKG, acute myocardial infarction, acute pericarditis, maranda anxiety, congestive heart failure Cholelithiasis costochondritis, hiatal hernia, pancreatitis, pericarditis, pleurisy, pneumonia, stable angina, unstable angina. HEART Score: History: Slightly Suspicious (0), ECG: Non specific repolarization disturbance / LBTB / PM (1), Age: > or = 65 years (2), Risk Factors: > or = 3 Risk factors for atherosclerotic disease (2), [Hypercholesterolemia] [Hypertension] [+ Family HX] Troponin: < or = 1 x Normal Limit (0). The patient was given aspirin in the Emergency Department. The patient's deep vein thrombosis risk score was calculated as follows: Total Score: 0. This patient was found to be at low risk for a deep vein thrombosis by using the Well's assessment criteria. The patient's pulmonary embolism risk score was calculated as follows: Total Score: 0-2 points. This patient was found to be at low risk for a pulmonary embolism by using the Well's assessment criteria. ARMEN Risk Score: 1 - patient's age is greater or equal to 65 years, 1 - Three or more CAD risk factors, 1- Known CAD, TOTAL SCORE = 3. Data reviewed: vital signs, nurses notes, lab test result(s), EKG, radiologic studies, plain films. Data interpreted: traffic monitor specialist: rate is 110 beats/min, rhythm is regular, Pulse oximetry: on room air is 94 %. Test interpretation: by ED physician or midlevel provider: ECG, plain radiologic studies. Counseling: I had a detailed discussion with the patient and/or guardian regarding: the historical points, exam findings, and any diagnostic results supporting the discharge/admit diagnosis, lab results, radiology results, the need for further work-up and treatment in the hospital. 02/07 07:42 Order name: Basic Metabolic Panel; Complete Time: 08:35 [facility] 02/07 07:42 Order name: CBC with Diff; Complete Time: 08:17 [facility] 02/07 07:42 Order name: LFT's; Complete Time: 08:35 [facility] 02/07 07:42 Order name: Magnesium; Complete Time: 08:35 maranda 02/07 07:42 Order name: NT PRO-BNP; Complete Time: 08:35 [facility] 02/07 07:42 Order name: PT-INR; Complete Time: 08:17 02/07 07:42 Order name: Troponin HS; Complete Time: 08:35 [facility] 02/07 07:42 Order name: Lipase; Complete Time: 08:35 [facility] 02/07 07:42 Order name: Urine Culture [facility] 02/07 07:42 Order name: SARS RAPID; Complete Time: 10:52 [facility] 02/07 08:51 Order name: Ptt, Activated; Complete Time: 10:52 ha 02/07 10:55 Order name: Blood Culture Adult (2) [facility] 02/07 10:55 Order name: Lactate [facility] 02/07 10:55 Order name: Urine Microscopic Only [facility] 02/07 07:42 Order name: XRAY Chest (1 view); Complete Time: 10:52 [facility] 02/07 11:00 Order name: Troponin High Sensitivity; Complete Time: 12:55 [facility] 02/07 11:01 Order name: Echo with Doppler [facility] 02/07 12:55 Order name: Echo w/ Doppler [facility] 02/07 13:11 Order name: Urine Dipstick-Ancillary [facility] 02/07 13:20 Order name: Ptt, Activated [facility] 02/07 14:15 Order name: PTT, Activated Partial Thromb [facility] 02/07 07:42 Order name: EKG; Complete Time: 07:43 [facility] 02/07 07:42 Order name: Cardiac monitoring; Complete Time: 07:43 [facility] 02/07 07:42 Order name: EKG - Nurse/Tech; Complete Time: 07:43 [facility] 02/07 07:42 Order name: IV Saline Lock; Complete Time: 07:43 [facility] 02/07 07:42 Order name: Labs collected and sent; Complete Time: 08:33 [facility] 02/07 07:42 Order name: O2 Sat Monitoring; Complete Time: 07:43 [facility] 02/07 07:42 Order name: Urine Dipstick-Ancillary (obtain specimen); Complete Time: 13:21 [facility] 02/07 08:43 Order name: EKG; Complete Time: 08:43 [facility] 02/07 08:43 Order name: EKG - Nurse/Tech; Complete Time: 09:07 [facility] 02/07 12:21 Order name: Labs - recollect needed: recollect lactate; Complete Time: 13:07 bd EC:47 Rate is 110 beats/min. Rhythm is regular. QRS [place] is Normal. NH interval is normal. maranda QRS interval is normal. QT interval is normal. No Q waves. T waves are Normal. No ST changes noted. Clinical impression: NSR w/ Non-specific ST/T Changes and No evidence of ischemia. Interpreted by me. Reviewed by me. 09:33 Rate is 96 beats/min. Rhythm is regular. QRS [place] is Normal. NH interval is normal. QRS maranda interval is normal. QT interval is normal. No Q waves. T waves are Normal. No ST changes noted. Clinical impression: NSR w/ Non-specific ST/T Changes. Interpreted by me. Reviewed by me. Administered Medications: 07:30 Drug: NS 0.9% 500 ml Route: IV; Rate: bolus; Site: right forearm; jg9 08:41 Follow up: IV Status: Completed infusion; IV Intake: 500ml g9 08:43 Drug: Pepcid (famotidine) 20 mg Route: IVP; Site: right forearm; jg9 09:40 Follow up: Response: No adverse reaction jg9 08:45 Drug: NS 0.9% 1000 ml Route: IV; Rate: 125 ml/hr; Site: right forearm; jg9 09:00 Drug: Coreg (carvedilol) 3.125 mg Route: PO; jg9 09:43 Follow up: Response: No adverse reaction jg9 09:00 Drug: morphine 2 mg Route: IVP; Infused Over: 4 mins; Site: right forearm; jg9 09:43 Follow up: Response: No adverse reaction jg9 09:00 Drug: Zofran (Ondansetron) 4 mg Route: IVP; Site: right forearm; jg9 09:41 Follow up: Response: No adverse reaction jg9 09:02 Drug: Aspirin 162 mg Route: PO; jg9 09:41 Follow up: Response: No adverse reaction jg9 09:25 Drug: Heparin ([place]-Bolus No thrombolytic) - HEParin 60 units/kg {Co-Signature: ha1 jg9 (Rosa Peña RN).} Route: IVP; Site: right forearm; :41 Follow up: Response: No adverse reaction jg9 09:30 Drug: Heparin ([place] Drip) 12 units/kg/hr - (HEParin 59025 units, D5W 500 ml) jg9 {Co-Signature: ha1 (Rosa Peña RN).} Route: IV; Rate: calculated rate; Site: right forearm; 09:34 Drug: PlaVIX (clopidogrel) 75 mg Route: PO; jg9 09:41 Follow up: Response: No adverse reaction jg9 11:15 Drug: Tylenol 650 mg Route: PO; ha1 13:57 Follow up: Response: No adverse reaction ha1 12:50 Drug: Rocephin (cefTRIAXone) 1 grams Route: IV; Rate: per protocol; Site: left ha1 antecubital; 14:20 Follow up: IV Status: Completed infusion; IV Intake: 50ml jg9 13:53 CANCELLED (Inappropriate at this time): NS 0.9% 500 ml IV at bolus once ha1 Disposition Summary: 02/07/22 08:43 Hospitalization Ordered Hospitalization Status: Inpatient Admission maranda Provider: Estiven Rojas cha Location: Telemetry/MedSurg (Inpatient) maranda Condition: Fair maranda Problem: new maranda Symptoms: have improved maranda Bed/Room Type: Standard [facility] Room Assignment: 206(02/07/22 12:35) bd Diagnosis - Chest pain, unspecified maranda - Angina pectoris, unspecified maranda - Dementia in other diseases classified elsewhere without behavioral disturbance maranda Forms: - Medication Reconciliation Form maranda - SBAR form maranda Signatures: Dispatcher [employer] [place] Corey, MD MD cha Prokisch, Amanda RN RN madelyn3 Taryn Valdivia RN FRANCISCA delgadogRosa Ashby RN RN ha1 Rosa Peña RN ha1 Corrections: (The following items were deleted from the chart) 12:35 08:43 maranda bd 13:07 07:42 Oxygen Per Protocol ordered. maranda jg9 13:53 10:55 NS 0.9% 500 ml IV at bolus once ordered. maranda ha1 13:53 13:24 NS 0.9% 500 ml IV at bolus once given. jg9 ha1 13:53 13:53 NS 0.9% 500 ml IV at bolus once ordered. ha1 ha1
--- NOTE | 2022-02-07 08:43 | ER ---
Nurse's Notes [facility] Name: Michaela Matias Age: 81 yrs Sex: Female : 1940 Arrival Date: 02/07/2022 Time: 07:00 Bed 20 Private MD: Diagnosis: Chest pain, unspecified;Angina pectoris, unspecified;Dementia in other diseases classified elsewhere without behavioral disturbance Presentation: 02/07 07:08 Chief complaint: Patient states: she woke up this morning with left upper chest pain. ap3 patients son also reports the patient has had a cough since yesterday. Coronavirus screen: Client presents with at least one sign or symptom that may indicate coronavirus-19. Ebola Screen: No symptoms or risks identified at this time. Initial Sepsis Screen: Does the patient meet any 2 criteria? No. Patient's initial sepsis screen is negative. Does the patient have a suspected source of infection? No. Patient's initial sepsis screen is negative. Risk Assessment: Do you want to hurt yourself or someone else? Patient reports no desire to harm self or others. Onset of symptoms was February 07, 2022. 07:08 Method Of Arrival: Wheelchair ap3 07:08 Acuity: ROSALBA 3 ap3 Triage Assessment: 07:11 General: Appears in no apparent distress. Behavior is calm. Pain: Complains of pain in ap3 anterior aspect of left upper chest Pain does not radiate. Pain currently is 4 out of 10 on a pain scale. Pain began gradually, Also complains of cough. Neuro: Level of Consciousness is awake, alert, obeys commands, Oriented to person, place, time. Cardiovascular: Reports chest pain, Patient's skin is warm and dry. Respiratory: Reports cough that is Airway is patent Respiratory effort is even, unlabored. Historical: - Allergies: 07:10 Demerol; ap3 - Home Meds: 14:19 aspirin 81 mg Oral TbEC 1 tab once daily [Active]; carvedilol 3.125 mg Oral tab 1 tab 2 jg9 times per day [Active]; donepezil 10 mg Oral tab 1 tab once daily [Active]; omeprazole 20 mg Oral cpDR 1 cap once daily [Active]; rosuvastatin 20 mg Oral tab 1 tab once daily [Active]; - PMHx: 07:10 Alzheimers; Dementia; High Cholesterol; Hypertension; ap3 - PSHx: 07:10 back sx; cardiac bypass; ap3 - Immunization history:: Client reports receiving the 2nd dose of the Covid vaccine. - Social history:: Smoking status: Patient denies any tobacco usage or history of. - Family history:: not pertinent. Screenin:13 Abuse screen: Denies threats or abuse. Nutritional screening: No deficits noted. ap3 Tuberculosis screening: No symptoms or risk factors identified. 08:44 Fall Risk Fall in past 12 months (25 points). IV access (20 points). Ambulatory Aid- jg9 Crutches/Cane/Walker (15 pts). Gait- Impaired (20 pts.). Mental Status- Overestimates/Forgets Limitations (15 pts.). Assessment: 07:15 General: Appears comfortable, Behavior is calm, cooperative. ha1 07:15 General: Patient's son report that the patient has been lethargic in the past 12 hours. ha1 Patient stated " I have chest pain on my left upper part of my chest.. 07:15 Pain: Complains of pain in anterior aspect of left upper chest Pain does not radiate. ha1 Pain at worst was 4 out of 10 on a pain scale. Quality of pain is described as pressure, Pain began 1 day ago. Is intermittent, Aggravated by cough. Neuro: Level of Consciousness is awake, alert, obeys commands, Oriented to person, place, situation, Patient's son reports that the patient has been diagnosed with dementia.. Cardiovascular: Heart tones S1 S2 present Capillary refill < 3 seconds Pulses are all present. Rhythm is sinus tachycardia. Respiratory: Reports cough that is dry, Airway is patent. GI: No signs and/or symptoms were reported involving the gastrointestinal system. Bowel sounds present X 4 quads. : Parent/caregiver report the patient having patient was diagnosed with an UTI last week. EENT: No signs and/or symptoms were reported regarding the EENT system. Derm: Skin is intact. Musculoskeletal: Capillary refill < 3 seconds, Range of motion:. 08:10 Reassessment: Patient and/or family updated on plan of care and expected duration. Pain ha1 level reassessed. patient was educated on lab results and possible treatments by Doctor on assignment.. 09:25 Reassessment: Patient and/or family updated on plan of care and expected duration. Pain ha1 level reassessed. patient's son at bedside.. 10:50 Reassessment: Patient and/or family updated on plan of care and expected duration. Pain ha1 level reassessed. Vital Signs: 07:08 BP 138 / 74; Pulse 101; Resp 18; Temp 99.2; Pulse Ox 95% ; Weight 47.63 kg; Height 5 ap3 ft. 2 in. (157.48 cm); Pain 4/10; 07:20 BP 155 / 66 RA Supine; Pulse 102; Resp 20 S; Pulse Ox 94% on R/A; Pain 4/10; ha1 07:20 Temp 99.7(O); ha1 08:15 BP 152 / 75 LA Supine; Pulse 90; Resp 20 S; Pulse Ox 96% on R/A; ha1 09:15 BP 166 / 69 LA Supine; Pulse 93; Resp 21; Pulse Ox 96% on R/A; ha1 10:15 BP 127 / 66 LA Supine; Pulse 95; Resp 21 S; Pulse Ox 93% on R/A; ha1 11:15 BP 121 / 89 Supine; Pulse 94; Resp 20 S; Temp 98.4(O); Pulse Ox 94% on R/A; ha1 12:40 BP 122 / 90; Pulse 98; Resp 21 S; Pulse Ox 94% on R/A; ha1 07:08 Body Mass Index 19.20 (47.63 kg, 157.48 cm) ap3 ED Course: 07:00 Patient arrived in ED. bp1 07:03 Taryn Valdivia, RN is Primary Nurse. jg9 07:10 Triage completed. ap3 07:13 Arm band placed on right wrist. ap3 07:13 Patient maintains SpO2 saturation greater than 95% on room air. ap3 07:15 Inserted saline lock: 20 gauge in right antecubital area, using aseptic technique. jg9 Blood collected. 07:26 Chinedu Armenta MD is Attending Physician. maranda 08:41 Estiven Rojas MD is Hospitalizing Provider. maranda 08:44 Patient has correct armband on for positive identification. Bed in low position. Call jg9 light in reach. Side rails up X2. Client placed on continuous cardiac and pulse oximetry monitoring. NIBP monitoring applied. Warm blanket given. 08:50 XRAY Chest (1 view) In Process Unspecified. EDMS 09:07 EKG done, by ED staff, reviewed by Chinedu Armenta MD. dh3 09:15 Patient has correct armband on for positive identification. Placed in gown. Side rails ha1 up X2. Adult w/ patient. Warm blanket given. 09:45 Inserted saline lock: 20 gauge in left antecubital area, using aseptic technique. ha1 10:10 Warm blanket given. Head of bed Elevated. ha1 13:49 Ptt, Activated Sent. ha1 14:16 No provider procedures requiring assistance completed. jg9 14:19 Patient admitted, IV remains in place. jg9 Administered Medications: 07:30 Drug: NS 0.9% 500 ml Route: IV; Rate: bolus; Site: right forearm; jg9 08:41 Follow up: IV Status: Completed infusion; IV Intake: 500ml jg9 08:43 Drug: Pepcid (famotidine) 20 mg Route: IVP; Site: right forearm; jg9 09:40 Follow up: Response: No adverse reaction jg9 08:45 Drug: NS 0.9% 1000 ml Route: IV; Rate: 125 ml/hr; Site: right forearm; jg9 09:00 Drug: Coreg (carvedilol) 3.125 mg Route: PO; jg9 09:43 Follow up: Response: No adverse reaction jg9 09:00 Drug: morphine 2 mg Route: IVP; Infused Over: 4 mins; Site: right forearm; jg9 09:43 Follow up: Response: No adverse reaction jg9 09:00 Drug: Zofran (Ondansetron) 4 mg Route: IVP; Site: right forearm; jg9 09:41 Follow up: Response: No adverse reaction jg9 09:02 Drug: Aspirin 162 mg Route: PO; jg9 09:41 Follow up: Response: No adverse reaction jg9 09:25 Drug: Heparin ([place]-Bolus No thrombolytic) - HEParin 60 units/kg {Co-Signature: ha1 jg9 (Rosa Peña RN).} Route: IVP; Site: right forearm; 09:41 Follow up: Response: No adverse reaction jg9 09:30 Drug: Heparin ([place] Drip) 12 units/kg/hr - (HEParin 30230 units, D5W 500 ml) jg9 {Co-Signature: ha1 (Rosa Peña RN).} Route: IV; Rate: calculated rate; Site: right forearm; 09:34 Drug: PlaVIX (clopidogrel) 75 mg Route: PO; jg9 09:41 Follow up: Response: No adverse reaction jg9 11:15 Drug: Tylenol 650 mg Route: PO; ha1 13:57 Follow up: Response: No adverse reaction ha1 12:50 Drug: Rocephin (cefTRIAXone) 1 grams Route: IV; Rate: per protocol; Site: left ha1 antecubital; 14:20 Follow up: IV Status: Completed infusion; IV Intake: 50ml jg9 13:53 CANCELLED (Inappropriate at this time): NS 0.9% 500 ml IV at bolus once ha1 Medication: 14:20 VIS not applicable for this client. jg9 Intake: 08:41 IV: 500ml; Total: 500ml. jg9 14:20 IV: 50ml; Total: 550ml. jg9 Outcome: 08:43 Decision to Hospitalize by Provider. maranda 14:16 Admitted to Med/surg accompanied by winnie, via stretcher, room 206, Report called to j9 Kourtney 14:19 Patient left the ED. jg9 14:19 Condition: stable jg9 Signatures: Dispatcher [employer] EDMS Chinedu Armenta MD MD cha Herrera, Deanna 3 Rosemary Rodrigues, RN RN madelyn3 Sujata Hall Jennifer RN FRANCISCA jRosa Ashby RN RN 1 Rosa Peña RN ha1 Corrections: (The following items were deleted from the chart) 10:37 08:25 Reassessment: Patient and/or family updated on plan of care and expected ha1 duration. Pain level reassessed. patient's son at bedside.. ha1 13:53 13:24 NS 0.9% 500 ml IV at bolus in left antecubital jg9 ha1 13:53 13:50 Response: No adverse reaction; Rate change bolus; IV Status: Completed infusion; ha1 IV Intake: 500ml ha1
[2022-02-07 08:44] LABS: SARS-CoV-2 Antigen Rapid Res Negative (Negative)
[2022-02-07] MEDS ORDERED: carvediloL 6.25 MG TAB ONE (08:56)
[2022-02-07] MEDS ORDERED: MORPHINE 2 MG/ML SYR ONE (08:56)
[2022-02-07] MEDS ORDERED: HEPARIN/D5W 25,000 UNIT/500 ML BAG IV ONE (08:56)
[2022-02-07] MEDS ORDERED: HEPARIN 5000 UNIT/ML 1 ML VIAL ONE (08:56)
[2022-02-07] MEDS ORDERED: ONDANSETRON 4 MG/2 ML VIAL ONE (08:56)
[2022-02-07] MEDS ORDERED: ASPIRIN 81 MG CHEWABLE TABLET ONE (08:56)
--- NOTE | 2022-02-07 09:01 | RAD REPORT ---
EXAM DESCRIPTION: RAD - Chest Single View - 02/07/2022 8:49 am CLINICAL HISTORY: CHEST PAIN COMPARISON: Portable January 17 TECHNIQUE: AP portable chest image was obtained 02/07/2022 8:49 am . FINDINGS: No new mass or consolidation. Chronic interstitial lung pattern matches comparison. Sterno margaret wires are in place. Heart and vasculature are normal. No measurable pleural effusion and no pneu mothorax. No acute bony abnormality seen. No acute aortic findings suspected. IMPRESSION: No acute cardiopulmonary process. Insert stable
[2022-02-07] MEDS ORDERED: CLOPIDOGREL 75 MG TABLET ONE (09:44)
[2022-02-07] MEDS ORDERED: ACETAMINOPHEN 325 MG TABLET ONE (11:22)
[2022-02-07] MEDS ORDERED: CEFTRIAXONE 1000 MG/VIAL ONE (12:27)
--- NOTE | 2022-02-07 12:51 | P.HP ---
Certification for Inpatient Patient admitted to: Inpatient With expected LOS: >2 Midnights Patient will require the following post-hospital care: None Practitioner: I am a practitioner with admitting privileges, knowledge of patient current condition, hospital course, and medical plan of care. Services: Services provided to patient in accordance with Admission requirements found in Title 42 Section 412.3 of the Code of Federal Regulations Patient History Date of Service: 02/07/22 Reason for admission: Chest Pain History of Present Illness: Ms. Michaela Matias is an 81-year-old female who has a past medical history of advanced dementia, coronary artery disease s/p CABG, hypertension, and hyperlipidemia who presents to the [facility] Emergency Department for chest pain. History is quite limited as she has advanced dementia. History was obtained via discussion with Dr. Armenta and family, who is at bedside. At the time of my evaluation, she was not reporting any pain at all. However, per her family member, she has intermittently been reporting pain in her chest for the last 4-5 days. There are no apparent obvious inciting or alleviating factors. She was not given any medications for her symptoms. She is unable to characterize or grade the pain at this time. Per her family, she has not had any vomiting, diarrhea, fevers, or chills to their knowledge. No further history is available this time. Upon presentation, her vital signs were notable for a heart rate of 95 bpm and a respiratory rate of 21 breaths/min. Her laboratory studies were notable for a WBC count of 12,800, NT proBNP of 2554, and an initial troponin of 614.7. Her initial lactic acid was 3.5. Urinalysis revealed trace ketones, 2+ blood, 11-20 WBCs, 1120 RBCs, and > 50 bacteria. Blood cultures x 2 were obtained. EKG revealed sinus tachycardia without STEMI criteria. Chest x-ray revealed, "no acute cardiopulmonary process." In the Emergency Department, she was given famotidine, carvedilol, morphine, ondansetron, aspirin, clopidogrel, acetaminophen, ceftriaxone, 1.5 L normal saline, and started on a heparin drip. She was admitted to the General Internal Medicine service for further evaluation. Allergies meperidine [From Demerol] Allergy (Verified 09/03/19 14:37) Nausea/Vomiting Home medications list reviewed: Yes Home Medications: Donepezil HCl [Aricept] 10 mg PO BEDTIME 09/03/19 Rosuvastatin Calcium 40 mg PO BEDTIME 09/03/19 carvediloL [Coreg*] 3.125 mg PO DAILY #60 tab 06/08/20 Fluoxetine HCl [Prozac] 20 mg PO DAILY 02/07/22 Lisinopril [Zestril] 2.5 mg PO DAILY 02/07/22 Mirtazapine [Remeron] 15 mg PO BEDTIME 02/07/22 Oxybutynin Chloride [Ditropan] 5 mg PO DAILY 02/07/22 - Past Medical/Surgical History Diabetic: No -: CAD -: HTN -: Vascular Dementia -: "I used to be a diabetic " they took me off my medicine" -: CABG - triple 20 yrs ago -: hysterectomy -: L lumpectomy -: back surgery Psychosocial/ Personal History: Patient lives with her son. - Family History Family History: Reviewed- Non-Contributory - Family History Mother -: Cancer Father -: Diabetes Sister -: Cancer - Social History Smoking Status: Never smoker Alcohol use: No CD- Drugs: No Caffeine use: No Review of Systems is unable to be obtained Physical Examination - Vital Signs Temperature: 99.2 F Blood Pressure: 127/66 Pulse: 95 Respirations: 21 Pulse Ox (%): 93 - Physical Exam General: Alert, In no apparent distress, Oriented x1 HEENT: Atraumatic, EOMI, Sclerae nonicteric Neck: Supple, 2+ carotid pulse no bruit Respiratory: Clear to auscultation bilaterally, Normal air movement Cardiovascular: No edema, Regular rate/rhythm, Normal S1 S2, No gallops, No rubs, No murmurs Gastrointestinal: Normal bowel sounds, Hypoactive, Soft and benign, No ten derness, No rebound, No guarding Musculoskeletal: No clubbing Integumentary: No rashes Neurological: Dementia - Studies Laboratory Data (last 24 hrs) 02/07/22 07:50: APTT 28.6 02/07/22 07:50: PT 11.8, INR 1.07 02/07/22 07:50: WBC 12.8 H, Hgb 13.4, Hct 40.1, Plt Count 322 02/07/22 07:50: Sodium 137, Potassium 3.6, BUN 25 H, Creatinine 1.12, Glucose 150 H, Magnesium 2.1, Total Bilirubin 0.5, AST 18, ALT 15, Alkaline Phosphatase 158 H, Lipase 74 Assessment and Plan - Plan # Chest Pain, concern for Acute Coronary Syndrome (Non-ST Segment Elevation Myocardial Infarction) # Coronary Artery Disease s/p CABG # Hypertension # Hyperlipidemia Based on history and physical examination, cannot exclude ischemia as a possible etiology of her chest pain. Other differential diagnoses include, but are not limited to, pulmonary embolism, pericarditis, myocarditis, gastroesophageal reflux disease, gastritis/esophagitis, esophageal spasms, pneumonia, pleuritic chest pain, and musculoskeletal chest pain (i.e. costochondritis). - Evaluation thus far: - EKG: without STEMI criteria, trend - Serial troponin: 614.7 -> 529.7 -> 446.9 - Ordered transthoracic echocardiogram - Chest x-ray = "no acute cardiopulmonary process." - Ordered d-dimer - If positive, plan to obtain CT chest angiogram - Management plan: - Consult Cardiology and evaluated by Dr. Pace - recommendations appreciated - Recommends aspirin + statin, TTE, and possible Lexiscan - S/P aspirin 162 mg PO x 1 in ED (unclear if she took additional aspirin prior to arrival) - Start daily baby aspirin - Continue home lisinopri, carvedilol, rosuvastatin # SIRS Criteria (Tachycardia, Tachypnea) with Lactic Acidosis - no clear evidence of infection - Although her urine was dirty, the nitrites and leukocyte esterase were negative, which argues against an infection. Suspect that her SIRS criteria and lactic acidosis are due to dehydration in the setting of acute chest pain. Ceftriaxone was started in the ER, will continue empirically for now. # Advanced Dementia - Continue home donepezil Estiven oRjas M.D. - Advance Directives Does patient have a Living Will: Yes Does patient have a Durable POA for Healthcare: Yes - Code Status/Comfort Care Code Status Assessed: Yes Code Status: Full Code
[2022-02-07 13:11] LABS: Urine Blood 2+ (Negative); Urine Glucose Negative (Negative); Urine Protein 2+ (Negative); Urine Specific Gravity >=1.030 (1.005-1.030); Urine pH 5.5 (5.0-7.0)
[2022-02-07 13:40] LABS: Transitional Epithelial <5 /HPF (None Seen); Urine Bacteria >50 /HPF (<20); Urine Mucus 3+ /HPF (None Seen)
[2022-02-07 13:41] LABS: Urine Granular Casts 0-5 /LPF (None Seen); Urine RBC Clumps Occasional /HPF (None Seen)
--- NOTE | 2022-02-07 14:23 | CON ---
Date of Consultation: 02/07/2022 Reason For Consultation: Elevated troponin. History Of Present Illness: This is an 81-year-old female with past medical history of coronary kayy ry disease, status post cardiac bypass surgery, unsure if it is 3 or 4 vessels bypass, 23 years ago. She has dementia, hypertension, dyslipidemia, presented for vague complaints. She is demented and n ot able to give a good history, but granddaughter said that she had a chest pain episode earlier, ruchi ble to evaluate the symptoms very well as the patient is very poor historian. Troponin is borderline elevated; however, she follows up with Dr. Nagel apparently and she had a stress test that was neg ative within the past year. Past Medical History: As outlined above in the HPI. Medications: Refer to reconciliation sheet for detailed list. Allergies: MEPERIDINE. Family History: No premature coronary artery disease or cancer. Social History: She does not smoke or drink. Does not use any drugs. Review of Systems: All systems reviewed and they are negative except what mentioned in the HPI. Physical Examination: Vital Signs: Reviewed. Head and Neck: Pupils are equal, reactive to light. Intact eye movements. No JVD. No cervical lym phadenopathy. Neck is supple. Thyroid is not enlarged. Lungs: Clear to auscultation bilaterally. No rhonchi, wheezing, or crackles. No accessory muscle u se. Heart: Irregular. No extra sounds. Abdomen: Soft, nontender. Bowel sounds positive. No organomegaly. No masses or hernia. No rigidi ty or rebound. Extremities: No clubbing or cyanosis. Intact pulses. Skin: No rash. Neurologic: Alert, awake with confusion. No acute focal deficits appreciated. Investigations: Troponins 614 and then 529. Creatinine is 1.1, NT-proBNP is 2554, and her hemoglobi n is 13.4. EKG without acute specific abnormalities. Assessment And Recommendations: 1.Chest pain with elevated troponin. This is suggestive of non-ST elevation myocardial infarction. Recommend heparinization and baby aspirin 81 mg and trend troponin for 1 more set. This patient has significant vascular dementia, so we will plan for a noninvasive workup initially. Please obtain an echocardiogram and Lexiscan nuclear stress test and further recommendations to follow. Give the pat ient heparin drip until the above is done and please place the patient on a high-dose statin like Lip itor 40 mg at bedtime. 2.Hypertension. Blood pressure is acceptable. Continue home medications. 3.Dementia. The patient is very poor historian, unable to get medical history. At this point, I re commend that we do a stress test and an echo and further recommendations accordingly. /MODL Voice ID: [id number] Report ID: [id number]
[2022-02-07 15:03] VITALS: BMI 19.2
[2022-02-07] MEDS ORDERED: HEPARIN/D5W 25,000 UNIT/500 ML BAG IV PRN (16:00)
[2022-02-07] MEDS: carvediloL 3.125 MG TAB PO SCH (17:13)
[2022-02-07] MEDS: ASPIRIN 81 MG CHEWABLE TABLET PO SCH (17:13)
[2022-02-07] MEDS ORDERED: carvediloL 3.125 MG TAB PO SCH (18:00)
[2022-02-07] MEDS: ROSUVASTATIN 10 MG TAB PO SCH (20:53)
[2022-02-07] MEDS: DONEPEZIL HCL 5 MG TAB PO SCH (20:54)
--- NOTE | 2022-02-07 22:12 | RAD REPORT ---
EXAM DESCRIPTION: CT - Chest Angio - 02/07/2022 8:35 pm CLINICAL HISTORY: Chest pain, elevated D-dimer COMPARISON: Chest For Pe Angio dated 01/18/2021; Chest Single View dated 02/07/2022 TECHNIQUE: Dynamically enhanced 3 mm thick images of the chest were obtained during administration o f approximately 150mL Isovue 370 IV contrast. Coronal and oblique MIP reconstruction images were gene rated and reviewed. Exam utilizes a protocol to evaluate the pulmonary arterial tree. All CT scans are performed using dose optimization technique as appropriate and may include automated exposure control or mA/KV adjustment according to patient size. FINDINGS: No pulmonary emboli are identified. The aorta as imaged shows no acute or suspicious finding. No pericardial thickening or effusion. No infiltrate or mass in the lung parenchyma. No pleural effusion or pleural thickening. No mediastinal or hilar suspicious masses. No chest wall masses or abnormal axillary lymphadenopathy. IMPRESSION: No pulmonary emboli identified. No other acute findings. No significant change from comparison.
[2022-02-08] MEDS: carvediloL 3.125 MG TAB PO SCH ×2 (05:37→17:27)
[2022-02-08 06:16] LABS: Hematocrit 33.5 % (36.0-45.0); Lymphocytes % 13.4 % (15.3-44.8); MCV 88.3 fL (80-100); MPV 8.7 fL (7.6-11.3); RBC Red Blood Cell Count 3.79 M/uL (3.86-4.86)
[2022-02-08 06:31] LABS: Albumin 2.3 g/dL (3.4-5.0); Bilirubin Total 0.3 mg/dL (0.2-1.0); Phosphorus 2.6 mg/dL (2.5-4.9); Potassium 3.6 mmol/L (3.5-5.1); Protein, Total 6.6 g/dL (6.4-8.2)
[2022-02-08 07:12] LABS: Blood Morphology Comment NOT SEEN (NOT SEEN); Platelet Estimate ADEQ
[2022-02-08] MEDS: ASPIRIN 81 MG CHEWABLE TABLET PO SCH (08:42)
[2022-02-08] MEDS: CEFTRIAXONE 1,000 MG in NA CHLORIDE 0.9% 50 ML IVPB SCH (08:43)
[2022-02-08] MEDS: lisinopriL 5 MG TAB PO SCH ×2 (08:43→08:48)
[2022-02-08] MEDS ORDERED: VANCOMYCIN 1.25 GM in NA CHLORIDE 0.9% 250 ML IVPB ONE (12:30)
--- NOTE | 2022-02-08 12:40 | EKG ---
Test Date: 2022-02-07 Test Time: 07:12:16 Sorter/Assay Tech: JUSTIN MEASUREMENT RESULTS: Intervals: Rate: 110 SD: 178 QRSD: 72 QT: 320 QTc: 433 Man: P: 90 SD: 178 QRS: -32 T: 136 INTERPRETIVE STATEMENTS: Sinus tachycardia Left axis deviation ST & T wave abnormality, consider anterolateral ischemia Abnormal ECG Compared to ECG 01/17/2021 11:56:27 Left-axis deviation now present ST (T wave) deviation now present Possible ischemia now present Sinus rhythm no longer present Myocardial infarct finding no longer present Electronically Signed On 02-08-22 12:37:50 CDT by Shaan Pace
--- NOTE | 2022-02-08 12:40 | EKG ---
Test Date: 2022-02-07 Test Time: 09:07:38 Manufacturing Plant Technician: JOVANY MEASUREMENT RESULTS: Intervals: Rate: 96 NJ: 146 QRSD: 82 QT: 372 QTc: 469 Emigrant: P: 87 NJ: 146 QRS: 31 T: 93 INTERPRETIVE STATEMENTS: Normal sinus rhythm Nonspecific ST and T wave abnormality Abnormal ECG Compared to ECG 02/07/2022 07:12:16 Sinus tachycardia no longer present Left-axis deviation no longer present Possible ischemia no longer present ST (T wave) deviation still present Electronically Signed On 02-08-22 12:37:46 CDT by Shaan Pace
--- NOTE | 2022-02-08 15:29 | PN ---
Date of Progress Note: 02/08/2022 Subjective: The patient was seen by bedside. Doing clinically better. No chest pain. Troponin is trending down. Review of Systems: No chest pain, shortness of breath, orthopnea, cough. No nausea, vomiting, diarrhea. No abdominal p ain. No dysuria, polyuria, or urinary urgency. All other systems reviewed are negative. Physical Examination: Vital Signs: Reviewed. Head and Neck: Pupils are equal, reactive to light. Intact eye movements. No JVD. No cervical lym phadenopathy. Neck is supple. Thyroid is not enlarged. Lungs: Clear to auscultation bilaterally. No rhonchi, wheezing, or crackles. No accessory muscle u se. Heart: Regular rate and rhythm. No extra sounds. Abdomen: Soft, nontender. Bowel sounds positive. No organomegaly. No masses or hernia. No rigidi ty or rebound. Extremities: No clubbing or cyanosis. Intact pulses. Skin: No rash. Neurologic: Alert, awake, oriented x3. No acute focal deficits appreciated. Investigations: Troponin trended down, last was 446 and the creatinine 1.02. Hemoglobin is 11.2, wh ite blood cell count is 14.9, and urinalysis, mild UTI. Assessment And Recommendations: 1.Non-ST elevation myocardial infarction. The patient is not allowing to draw PTT due to advanced d ementia and the patient's family are planning more towards conservative management due to advanced de mentia, which is a logical decision. At this point, we are still waiting on the noninvasive testing with echo and Lexiscan nuclear stress test, which was ordered by myself today. Discontinue IV hepari n and replace it with Lovenox 1 mg/kg subcu q.12 hours and continue aspirin. 2.Elevated white blood cell count, probably due to urinary tract infection. SR/MODL Voice ID: [id number] Report ID: [id number]
[2022-02-08] MEDS ORDERED: ASPIRIN 81 MG CHEWABLE TABLET PO SCH (18:00)
--- NOTE | 2022-02-08 18:50 | P.PN ---
Subjective Date of Service: 02/09/22 Chief Complaint: Chest Pain Subjective: No new changes Physical Examination - Vital Signs Temperature: 99.6 F Blood Pressure: 152/62 Pulse: 90 Respirations: 16 Pulse Ox (%): 93 - Physical Exam General: Alert, Oriented x3 HEENT: Atraumatic, Normocephalic Neck: Supple Respiratory: Normal air movement Cardiovascular: Regular rate/rhythm, Normal S1 S2 Gastrointestinal: Soft and benign Musculoskeletal: No swelling Neurological: Normal speech - Studies Microbiology Data (last 24 hrs): 02/07/22 11:30 Blood - Blood Blood Culture Gram Stain - Final 02/07/22 11:30 Blood - Blood Gram Stain - Final Assessment And Plan - Plan Plan # Chest Pain, concern for Acute Coronary Syndrome (Non-ST Segment Elevation Myocardial Infarction) # Coronary Artery Disease s/p CABG # Hypertension # Hyperlipidemia Based on history and physical examination, cannot exclude ischemia as a possible etiology of her chest pain. Other differential diagnoses include, but are not limited to, pulmonary embolism, pericarditis, myocarditis, gastroesophageal reflux disease, gastritis/esophagitis, esophageal spasms, pneumonia, pleuritic chest pain, and musculoskeletal chest pain (i.e. costochondritis). - Evaluation thus far: - EKG: without STEMI criteria, trend - Serial troponin: 614.7 -> 529.7 -> 446.9 - Ordered transthoracic echocardiogram - Chest x-ray = "no acute cardiopulmonary process." - Ordered d-dimer - If positive, plan to obtain CT chest angiogram - Management plan: - Consult Cardiology and evaluated by Dr. Pace - recommendations appre ciated - Recommends aspirin + statin, TTE, and possible Lexiscan - S/P aspirin 162 mg PO x 1 in ED (unclear if she took additional aspirin prior to arrival) - Start daily baby aspirin - Continue home lisinopri, carvedilol, rosuvastatin # SIRS Criteria (Tachycardia, Tachypnea) with Lactic Acidosis - no clear evidence of infection - cultures neg so far. we will follow. # Advanced Dementia - Continue home donepezil
[2022-02-08] MEDS: DONEPEZIL HCL 5 MG TAB PO SCH (21:00)
[2022-02-08] MEDS: ROSUVASTATIN 10 MG TAB PO SCH (21:00)
[2022-02-08 22:48] VITALS: O2SAT 95
[2022-02-09] MEDS ORDERED: ACETAMINOPHEN 500 MG TAB PO ONE (00:22)
[2022-02-09] MEDS ORDERED: ACETAMINOPHEN 325 MG TABLET PO PRN (04:30)
[2022-02-09] MEDS: carvediloL 3.125 MG TAB PO SCH ×2 (05:40→17:55)
--- NOTE | 2022-02-09 06:58 | ECHO ---
HEIGHT: 5 ft 2 in WEIGHT: 105 lb 0 oz DATE OF STUDY: 02/08/[address]: Estiven Rojas MD 2-DIMENSIONAL: YES M.MODE: YES DOPPLER: YES COLOR FLOW: YES TDS: NO PORTABLE: YES DEFINITY: NO BUBBLE STUDY: NO DIAGNOSIS: ELEVATED TROPONIN CARDIAC HISTORY: CATHERIZATION: SURGERY: PROSTHETIC VALVE: PACEMAKER: MEASUREMENTS (cm) DIASTOLIC (NORMALS) SYSTOLIC (NORMALS) IVSd 1.0 (0.6-1.2) LA Diam 3.0 (1.9-4.0) LVEF 50% LVIDd 4.3 (3.5-5.7) LVIDs 3.2 (2.0-3.5) %FS 25% LVPWd 1.0 (0.6-1.2) Ao Diam 2.6 (2.0-3.7) 2 DIMENSIONAL ASSESSMENT: RIGHT ATRIUM: NORMAL LEFT ATRIUM: NORMAL RIGHT VENTRICLE: NORMAL LEFT VENTRICLE: NORMAL TRICUSPID VALVE: NORMAL MITRAL VALVE: NORMAL PULMONIC VALVE: NORMAL AORTIC VALVE: SCLEROSIS PERICARDIAL EFFUSION: NONE AORTIC ROOT: NORMAL LEFT VENTRICULAR WALL MOTION: NORMAL. DOPPLER/COLOR FLOW: MILD MITRAL, AORTIC AND TRICUSPID REGURGITATION. COMMENTS: MILD MITRAL, AORTIC, TRICUSPID REGURGITATION. NORMAL LEFT VENTRICUAR SIZE AND FUNCTION. AORTIC SCLEROSIS - NO STENOSIS. TECHNOLOGIST: BROOKLYN KNUTSON
[2022-02-09] MEDS ORDERED: REGADENOSON 0.4 MG/5 ML SYR IV ONE (08:00)
[2022-02-09] MEDS ORDERED: ENOXAPARIN 60 MG/0.6 ML SQ SCH (09:00)
--- NOTE | 2022-02-09 09:12 | RAD REPORT ---
EXAM DESCRIPTION: NM - Rest Stress Cardiac Imaging - 02/09/2022 9:00 am CLINICAL HISTORY: Chest pain COMPARISON: None. TECHNIQUE: The patient was administered 10.6 mCi of Tc 99m Sestamibi prior to resting SPECT imaging of the heart. The patient was then administered 30.1 mCi of Tc 99m Sestamibi following exercise or ph armacologic stress. Multiplanar SPECT images were reviewed. FINDINGS: The end diastolic volume is 77 ml, the end systolic volume is 31 ml, and the ejection frac tion is 60 %. No stress-induced ischemic changes identifiable. There is decreased activity along the inferior wall in the mid in apex portion that is unchanged between rest and stress imaging. This is favored to be d iaphragm attenuation artifact rather than scarring. IMPRESSION: No stress-induced ischemia. Fixed defect along the inferior wall is favored to be diaphragm attenuation artifact with scarring le ss likely but not excluded. End-diastolic volume and ejection fraction are well within normal range.
[2022-02-09] MEDS: CEFTRIAXONE 1,000 MG in NA CHLORIDE 0.9% 50 ML IVPB SCH (09:15)
[2022-02-09] MEDS: lisinopriL 5 MG TAB PO SCH (09:15)
[2022-02-09] MEDS: ASPIRIN 81 MG CHEWABLE TABLET PO SCH (09:15)
[2022-02-09] MEDS ORDERED: VANCOMYCIN 1 GM in NA CHLORIDE 0.9% 250 ML IVPB SCH (12:00)
[2022-02-09 16:19] VITALS: BP 152/62; TEMP 99.6
--- NOTE | 2022-02-09 16:20 | P.PN ---
Subjective Date of Service: 02/09/22 Chief Complaint: Chest Pain Physical Examination - Vital Signs Temperature: 99.6 F Blood Pressure: 152/62 Pulse: 90 Respirations: 16 Pulse Ox (%): 93 - Physical Exam General: Alert, Oriented x3 HEENT: Atraumatic, Normocephalic Respiratory: Normal air movement Cardiovascular: Normal pulses, Regular rate/rhythm, Normal S1 S2 Gastrointestinal: Soft and benign Musculoskeletal: No swelling Neurological: Normal speech - Studies Microbiology Data (last 24 hrs): 02/07/22 13:00 Catheterized Urine [place] Count - Final No growth. 02/07/22 13:00 Catheterized Urine - Final No growth. 02/07/22 11:30 Blood - Blood Blood Culture Gram Stain - Final 02/07/22 11:30 Blood - Blood Gram Stain - Final Assessment And Plan - Plan Plan # Chest Pain, concern for Acute Coronary Syndrome (Non-ST Segment Elevation Myocardial Infarction) # Coronary Artery Disease s/p CABG # Hypertension # Hyperlipidemia Based on history and physical examination, cannot exclude ischemia as a possible etiology of her chest pain. Other differential diagnoses include, but are not limited to, pulmonary embolism, pericarditis, myocarditis, gastroesophageal r eflux disease, gastritis/esophagitis, esophageal spasms, pneumonia, pleuritic chest pain, and musculoskeletal chest pain (i.e. costochondritis). - Evaluation thus far: - EKG: without STEMI criteria, trend - Serial troponin: 614.7 -> 529.7 -> 446.9 - Ordered transthoracic echocardiogram - Chest x-ray = "no acute cardiopulmonary process." - Ordered d-dimer - If positive, plan to obtain CT chest angiogram - Management plan: - Consult Cardiology and evaluated by Dr. Pace - recommendations appreciated - Recommends aspirin + statin, TTE, and possible Lexiscan - S/P aspirin 162 mg PO x 1 in ED (unclear if she took additional aspirin prior to arrival) - Start daily baby aspirin - Continue home lisinopri, carvedilol, rosuvastatin # SIRS Criteria (Tachycardia, Tachypnea) with Lactic Acidosis - no clear evidence of infection - cultures neg so far. we will follow. # Advanced Dementia - Continue home donepezil
--- NOTE | 2022-02-09 17:50 | P.DS ---
Admission Date: 02/07/22 Discharge Date: 02/09/22 Disposition: ROUTINE DISCHARGE Discharge Condition: FAIR Reason for Admission: Chest Pain Brief History of Present Illness: Ms. Michaela Matias is an 81-year-old female who has a past medical history of advanced dementia, coronary artery disease s/p CABG, hypertension, and hyperlipidemia who presents to the [facility] Emergency Department for chest pain. History is quite limited as she has advanced dementia. History was obtained via discussion with Dr. Armenta and family, who is at bedside. At the time of my evaluation, she was not reporting any pain at all. However, per her family member, she has intermittently been reporting pain in her chest for the last 4-5 days. There are no apparent obvious inciting or alleviating factors. She was not given any medications for her symptoms. She is unable to characterize or grade the pain at this time. Per her family, she has not had any vomiting, diarrhea, fevers, or chills to their knowledge. No further history is available this time. Upon presentation, her vital signs were notable for a heart rate of 95 bpm and a respiratory rate of 21 breaths/min. Her laboratory studies were notable for a WBC count of 12,800, NT proBNP of 2554, and an initial troponin of 614.7. Her initial lactic acid was 3.5. Urinalysis revealed trace ketones, 2+ blood, 11-20 WBCs, 1120 RBCs, and > 50 bacteria. Blood cultures x 2 were obtained. EKG revealed sinus tachycardia without STEMI criteria. Chest x-ray revealed, "no acute cardiopulmonary process." In the Emergency Department, she was given famot idine, carvedilol, morphine, ondansetron, aspirin, clopidogrel, acetaminophen, ceftriaxone, 1.5 L normal saline, and started on a heparin drip. She was admitted to the General Internal Medicine service for further evaluation. Hospital Course: Had significant work-up for possible ACS with troponin trend that was slightly elevated but trended down without any significant changes. She was asked to be evaluated by cardiology and had echocardiogram done that revealed no significant abnormality. She was subsequently deemed stable for discharge as work-up was not positive for any growth on blood and urine cultures and she had no dermatology or cardiovascular parameters. She was recommended to continue with aggressive medical management which would include statin therapy, aspirin and follow-up with PCP and outpatient frame catcher Dr. Nagel as scheduled. Vital Signs/Physical Exam: Temp Pulse Resp BP Pulse Ox 99.6 F 90 16 152/62 H 93 02/09/22 16:20 02/09/22 16:20 02/09/22 16:20 02/09/22 16:20 02/09/22 16:20 General: Alert HEENT: Atraumatic, Normocephalic Neck: Supple Respiratory: Normal air movement Cardiovascular: Regular rate/rhythm, Normal S1 S2 Gastrointestinal: Soft and benign Neurological: Normal speech Laboratory Data at Discharge: WBC 14.9 K/uL (4.3-10.9) H D 02/08/22 05:54 Hgb 11.2 g/dL (12.0-15.0) L 02/08/22 05:54 Hct 33.5 % (36.0-45.0) L D 02/08/22 05:54 Plt Count 268 K/uL (152-406) 02/08/22 05:54 PT 11.8 SECONDS (9.5-12.5) 02/07/22 07:50 INR 1.07 02/07/22 07:50 APTT Cancelled 02/08/22 10:32 Sodium 138 mmol/L (136-145) 02/08/22 05:54 Potassium 3.6 mmol/L (3.5-5.1) 02/08/22 05:54 BUN 21 mg/dL (7-18) H 02/08/22 05:54 Creatinine 1.02 mg/dL (0.55-1.3) 02/08/22 05:54 Glucose 121 mg/dL (74-106) H 02/08/22 05:54 Phosphorus 2.6 mg/dL (2.5-4.9) 02/08/22 05:54 Magnesium 2.0 mg/dL (1.8-2.4) 02/08/22 05:54 Total Bilirubin 0.3 mg/dL (0.2-1.0) 02/08/22 05:54 AST 22 U/L (15-37) 02/08/22 05:54 ALT 15 U/L (12-78) 02/08/22 05:54 Alkaline Phosphatase 148 U/L (45-117) H 02/08/22 05:54 Lipase 74 U/L ([id number]) 02/07/22 07:50 Home Medications: Donepezil HCl [Aricept] 10 mg PO BEDTIME 09/03/19 Rosuvastatin Calcium 40 mg PO BEDTIME 09/03/19 carvediloL [Coreg*] 3.125 mg PO DAILY #60 tab 06/08/20 Fluoxetine HCl [Prozac] 20 mg PO DAILY 02/07/22 Lisinopril [Zestril] 2.5 mg PO DAILY 02/07/22 Mirtazapine [Remeron*] 15 mg PO BEDTIME 02/07/22 Oxybutynin Chloride [Ditropan*] 5 mg PO DAILY 02/07/22 Diet: AHA Activity: Fall precautions Followup: Rodrick Holly MD [Primary Care Provider] -
--- NOTE | 2022-02-10 06:53 | TREADPHA ---
DX: CHEST PAIN Date of Study: 02/09/2022 Ht: 5' 2 " Wt: 105 lb 0 oz Consulting Physician: JESSICA MEDICATIONS: ASPIRIN, COREG, ARICEPT, HEPARIN, PRINIVIL, CRESTOR HISTORY: 81 YEAR OLD FEMALE WITH COMPLAINTS OF CHEST PAIN. HISTORY OF CORONARY ARTERY DISEASE, HYPERTENSION, DEMENTIA, CORONARY ARTERY BYPASS GRAFT, NON SMOKER, NON DRINKER. PHYSICIAL EXAMINATION: RESTING B.P.: 148/56 RESTING H.R.: 82 RESTING EKG: NORMAL SINUS RHYTHM, NST PROTOCOL: LEXISCAN EXERCISE TIME: 3:30 B.P. AT PEAK STRESS: 140/50 IMPRESSION: LEXISCAN INJECTED, FOLLOWED BY CARDIOLITE PER PROTOCOL. SEE NUCLEAR MEDICINE REPORT. NO SUPRAVENTRICULAR OR VENTRICULAR TACHYCARDIA. NO PREMATURE VENTRICULAR COMPLEXES. PATIENT REPORTED CHEST PAIN /10.
--- NOTE | 2022-02-10 13:34 | P.PN ---
Date of Service: 02/10/22 Was called me that her blood cultures are positive for MRSA I just called her daughter Radha Flood the [phone] number listed in the chart and informed her that her blood cultures are positive for MRSA she needs to come to the emergency room for IV antibiotic therapy
== END 2022-02-09 19:03 | disposition home or self-care (01) | DRG 281 ==
LOC: ER 06:56 → ERHOLD 10:58 → INTOOBSV 10:58 → OBSVTOIN 10:58 → 2ND 13:24 → OBSVTOIN 16:56
PROVIDERS: ADMIT Internal Medicine; ATTEND Internal Medicine
DX: I21.4 Non-ST elevation (NSTEMI) myocardial infarction (principal); R65.10 Systemic inflammatory response syndrome (SIRS) of non-infectious origin without acute organ dysfunction; I10 Essential (primary) hypertension; I25.10 Atherosclerotic heart disease of native coronary artery without angina pectoris; E78.5 Hyperlipidemia, unspecified; F01.50 Vascular dementia, unspecified severity, without behavioral disturbance, psychotic disturbance, mood disturbance, and anxiety; Z95.1 Presence of aortocoronary bypass graft; Z20.822 Contact with and (suspected) exposure to COVID-19
CPT/HCPCS: 36415; 71045; 71275; 78452; 80048; 80053; 80076; 81003; 81015; 83605; 83690; 83735; 83880; 84100; 84484; 85025; 85379; 85610; 85730; 87040; 87077; 87086; 87088; 87186; 87205; 87811; 93005; 93017; 93306; 96361; 96365; 96375; 99285; A9500; G0378; J1644; J1650; J2270; J2405; J2785; J3370; J7030; J7040; J7050; Q9967

== ENCOUNTER 2022-02-10 15:33 | Inpatient (IN) | payer OTHER ==
[2022-02-10] MEDS ORDERED: VANCOMYCIN 1 GM in NA CHLORIDE 0.9% 250 ML IVPB SCH (16:00)
[2022-02-10] MEDS: NA CHLORIDE 0.9% 1,000 ML IV SCH (17:27)
[2022-02-10] MEDS: VANCOMYCIN 1 GM in NA CHLORIDE 0.9% 250 ML IVPB SCH (17:45)
[2022-02-10 19:39] VITALS: BMI 19.0
[2022-02-10] MEDS ORDERED: LABETALOL HCL 100 MG TAB PO ONE (21:25)
[2022-02-10] MEDS: BENZONATATE 100 MG CAP PO PRN (21:41)
[2022-02-11] MEDS: NA CHLORIDE 0.9% 1,000 ML IV SCH ×2 (05:22→18:40)
[2022-02-11 05:52] LABS: Absolute Lymphocytes (CBC) 2.2 K/uL (0.7-4.9); Hematocrit 29.6 % (36.0-45.0); Lymphocytes % 16.3 % (15.3-44.8); MCV 88.6 fL (80-100); MPV 7.8 fL (7.6-11.3); RBC Red Blood Cell Count 3.35 M/uL (3.86-4.86)
[2022-02-11 06:11] LABS: Albumin 1.9 g/dL (3.4-5.0); Bilirubin Total 0.3 mg/dL (0.2-1.0); Potassium 3.3 mmol/L (3.5-5.1); Protein, Total 6.1 g/dL (6.4-8.2)
--- NOTE | 2022-02-11 09:48 | P.HP ---
Certification for Inpatient Patient admitted to: Observation With expected LOS: <2 Midnights Practitioner: I am a practitioner with admitting privileges, knowledge of patient current condition, hospital course, and medical plan of care. Services: Services provided to patient in accordance with Admission requirements found in Title 42 Section 412.3 of the Code of Federal Regulations Patient History Date of Service: 02/10/22 Reason for admission: Patient admitted with MRSA bacteremia History of Present Illness: Patient is 81 years of age was recently admitted with chest pain she has a history of end-stage dementia was called by microbiology that her blood cultures are positive for MRSA discussed with the son she has been gradually declining does not eat very much but is gotten worse since the beginning of this week tach work-up but did not show any evidence of ischemia was directly admitted from her home Allergies meperidine [From Demerol] Allergy (Verified 09/03/19 14:37) Nausea/Vomiting Home Medications: Donepezil HCl [Aricept] 10 mg PO BEDTIME 09/03/19 Rosuvastatin Calcium 40 mg PO BEDTIME 09/03/19 carvediloL [Coreg*] 3.125 mg PO DAILY #60 tab 06/08/20 Fluoxetine HCl [Prozac] 20 mg PO DAILY 02/07/22 Lisinopril [Zestril] 2.5 mg PO DAILY 02/07/22 Mirtazapine [Remeron*] 15 mg PO BEDTIME 02/07/22 Oxybutynin Chloride [Ditropan*] 5 mg PO DAILY 02/07/22 - Past Medical/Surgical History Diabetic: No -: CAD -: HTN -: Vascular Dementia -: "I used to be a diabetic " they took me off my medicine" -: CABG - triple 20 yrs ago -: hysterectomy -: L lumpectomy -: back surgery Psychosocial/ Personal History: Patient lives with her son. - Family History Mother -: Cancer Father -: Diabetes Sister -: Cancer - Social History Smoking Status: Never smoker Alcohol use: No CD- Drugs: No Caffeine use: No Place of Residence: Home Review of Systems General: Weakness, Malaise Physical Examination - Vital Signs Temperature: 97.6 F Blood Pressure: 122/58 Pulse: 84 Respirations: 16 Pulse Ox (%): 92 - Physical Exam General: Alert, Oriented x1 Respiratory: Clear to auscultation bilaterally Cardiovascular: No edema, Normal S1 S2 Gastrointestinal: Normal bowel sounds, Soft and benign - Studies Laboratory Data (last 24 hrs) 02/11/22 05:20: Sodium 138, Potassium 3.3 L, BUN 18, Creatinine 0.81, Glucose 121 H, Total Bilirubin 0.3, AST 33, ALT 21, Alkaline Phosphatase 199 H 02/11/22 05:20: WBC 13.3 H, Hgb 9.9 L, Hct 29.6 L, Plt Count 458 H D Assessment and Plan - Problems (Diagnosis) (1) MRSA bacteremia Current Visit: Yes Status: Acute Plan: Patient is 81 years of age was just recently discharged admitted with MRSA bacteremia white count was elevated last admission we will plan to admit her put a PICC line and start on IV vancomycin home health she will need at least 2 weeks of IV vancomycin discussed with family members present at the bedside prognosis is poor she has been declining blood pressure is mildly elevated - Advance Directives Does patient have a Living Will: No Does patient have a Durable POA for Healthcare: Yes
--- NOTE | 2022-02-11 09:49 | P.PN ---
Subjective Date of Service: 02/11/22 Chief Complaint: Patient admitted with MRSA bacteremia No change in patient's condition she continues to remain lethargic however is responsive and Comycin has started Review of Systems is unable to be obtained Physical Examination - Vital Signs Temperature: 97.6 F Blood Pressure: 122/58 Pulse: 84 Respirations: 16 Pulse Ox (%): 92 - Physical Exam General: Alert, Cooperative Respiratory: Clear to auscultation bilaterally Cardiovascular: No edema, Regular rate/rhythm - Studies Laboratory Data (last 24 hrs) 02/11/22 05:20: Sodium 138, Potassium 3.3 L, BUN 18, Creatinine 0.81, Glucose 121 H, Total Bilirubin 0.3, AST 33, ALT 21, Alkaline Phosphatase 199 H 02/11/22 05:20: WBC 13.3 H, Hgb 9.9 L, Hct 29.6 L, Plt Count 458 H D Assessment And Plan - Current Problems (Diagnosis) (1) MRSA bacteremia Current Visit: Yes Status: Acute Plan: Patient admitted with MRSA bacteremia PICC line pending consult home health for IV antibiotic therapy for 2 weeks labs reviewed mildly elevated white count blood pressure is mildly elevated resume home medication needs significant encouragement to eat Discharge Plan: Home Plan to discharge in: 24 Hours
[2022-02-11] MEDS: carvediloL 3.125 MG TAB PO SCH (12:07)
[2022-02-11] MEDS: OXYBUTYNIN CHLORIDE 5 MG TAB PO SCH (12:07)
[2022-02-11] MEDS: POTASSIUM 25 MEQ EFFERV TAB PO SCH ×2 (12:07→20:29)
[2022-02-11] MEDS: lisinopriL 5 MG TAB PO SCH (12:08)
[2022-02-11] MEDS: FLUOXETINE 20 MG CAP PO SCH (12:08)
[2022-02-11] MEDS: BENZONATATE 100 MG CAP PO PRN (14:18)
[2022-02-11] MEDS: VANCOMYCIN 1 GM in NA CHLORIDE 0.9% 250 ML IVPB SCH (19:20)
[2022-02-11] MEDS: DONEPEZIL HCL 5 MG TAB PO SCH (20:29)
[2022-02-11] MEDS: MIRTAZAPINE 15 MG TAB PO SCH (20:29)
[2022-02-12] MEDS: NA CHLORIDE 0.9% 1,000 ML IV SCH ×2 (00:30→09:26)
[2022-02-12] MEDS: FLUOXETINE 20 MG CAP PO SCH (09:00)
[2022-02-12] MEDS: lisinopriL 5 MG TAB PO SCH (09:18)
[2022-02-12] MEDS: OXYBUTYNIN CHLORIDE 5 MG TAB PO SCH (09:19)
[2022-02-12] MEDS: POTASSIUM 25 MEQ EFFERV TAB PO SCH ×2 (09:19→20:38)
[2022-02-12] MEDS: carvediloL 3.125 MG TAB PO SCH (09:20)
--- NOTE | 2022-02-12 14:12 | P.PN ---
Subjective Date of Service: 02/12/22 Subjective: No new changes, No C/O voiced, Improving P was admitted to the hospital a couple of days ago and ruled out for ACS. She had a stress test and an echocardiogram performed that were unremarkable. However, her blood culture came back positive for MRSA and she was called in told to come back to the hospital. She has been very debilitated. Patient's states that She has not walked in a week. We will work with physical therapy and get her out of bed. If she is ambulating better than anticipate discharge over the next 24 to 48 hours. Repeat cultures are negative. Unknown source. She has had frequent UTIs as well. Review of Systems 10-point ROS is otherwise unremarkable Physical Examination - Vital Signs Temperature: 98.3 F Blood Pressure: 124/56 Pulse: 70 Respirations: 16 Pulse Ox (%): 94 - Physical Exam General: Alert, In no apparent distress, Cachectic, Demented HEENT: Atraumatic, PERRLA, EOMI Neck: Supple, JVD not distended Respiratory: Clear to auscultation bilaterally, Normal air movement Cardiovascular: Regular rate/rhythm, Normal S1 S2 Gastrointestinal: Normal bowel sounds, No tenderness Musculoskeletal: No tenderness Integumentary: No rashes Neurological: Normal speech, Normal tone, Normal affect Lymphatics: No axilla or inguinal lymphadenopathy - Studies Medications List Reviewed: Yes Assessment & Plan - Problems (Diagnosis) (1) MRSA bacteremia Current Visit: Yes Status: Acute (2) CAD (coronary artery disease) Current Visit: No Status: Chronic Qualifiers: [place] vs. transplanted heart: [place] heart Associated angina: with unstable angina (3) HTN (hypertension) Current Visit: No Status: Chronic Qualifiers: Hypertension type: essential hypertension Qualified Code(s): I10 - Essential (primary) hypertension (4) Vascular dementia Current Visit: No Status: Chronic - Plan Plan: 1. Continue with IV vancomycin 2. Repeat blood cultures are pending 3. Physical therapy evaluation 4. Repeat labs including checking procalcitonin level 5. Out of bed and ambulate 6. GI and DVT prophylaxis Discharge Plan: Home Plan to discharge in: Greater than 2 days - Advance Directives Does patient have a Living Will: Yes Does patient have a Durable POA for Healthcare: Yes - Code Status/Comfort Care Code Status Assessed: Yes Code Status: Full Code Critical Care: No Time Spent Managing PTS Care (In Minutes): 45
[2022-02-12] MEDS: VANCOMYCIN 1 GM in NA CHLORIDE 0.9% 250 ML IVPB SCH (18:04)
[2022-02-12] MEDS: ONDANSETRON 4 MG/2 ML VIAL IV PRN (20:25)
--- NOTE | 2022-02-12 20:30 | RAD REPORT ---
EXAM DESCRIPTION: RAD - Chest Single View - 02/12/2022 3:54 am CLINICAL HISTORY: The patient is 81 years old and is Female; S/P PICC insertion TECHNIQUE: Single view of the chest. COMPARISON: No relevant prior studies available. FINDINGS: Lungs: No pulmonary vascular congestion or consolidation. Pleural space: Unremarkable. No pneumothorax. Heart: Status post CABG surgery. Mediastinum: Unremarkable. Bones/joints: Sternal closure wires. Mild scoliosis. No acute rib fracture. Tubes, lines and devices: Right PICC line is in the SVC. Upper abdomen: No free air in the visualized upper abdomen. IMPRESSION: Right PICC line is in the SVC. Electronically signed by: Aaliyah Webber MD 02/12/2022 4:37 AM CDT Due to temporary technical issues with the PACS/Fluency reporting system, reports are being signed by the in house radiologists without review as a courtesy to insure prompt reporting. The interpreting radiologist is fully responsible for the content of the report.
[2022-02-12] MEDS: ACETAMINOPHEN 325 MG TABLET PO PRN (20:37)
[2022-02-12] MEDS: MIRTAZAPINE 15 MG TAB PO SCH (20:37)
[2022-02-12] MEDS: DONEPEZIL HCL 5 MG TAB PO SCH (20:37)
[2022-02-13] MEDS: NA CHLORIDE 0.9% 1,000 ML IV SCH (10:40)
[2022-02-13] MEDS: OXYBUTYNIN CHLORIDE 5 MG TAB PO SCH (10:48)
[2022-02-13] MEDS: POTASSIUM 25 MEQ EFFERV TAB PO SCH ×2 (10:48→20:40)
[2022-02-13] MEDS: carvediloL 3.125 MG TAB PO SCH (10:48)
[2022-02-13] MEDS: lisinopriL 5 MG TAB PO SCH ×3 (10:48→20:39)
[2022-02-13] MEDS: FLUOXETINE 20 MG CAP PO SCH (10:48)
[2022-02-13] MEDS ORDERED: lisinopriL 5 MG TAB PO ONE (13:06)
[2022-02-13] MEDS ORDERED: carvediloL 6.25 MG TAB PO ONE (13:06)
[2022-02-13] MEDS: carvediloL 6.25 MG TAB PO SCH ×2 (13:20→20:39)
[2022-02-13] MEDS: ACETAMINOPHEN 325 MG TABLET PO PRN (17:12)
[2022-02-13] MEDS: VANCOMYCIN 1 GM in NA CHLORIDE 0.9% 250 ML IVPB SCH (18:20)
[2022-02-13] MEDS: MIRTAZAPINE 15 MG TAB PO SCH (20:38)
[2022-02-13] MEDS: DONEPEZIL HCL 5 MG TAB PO SCH (20:39)
[2022-02-14 03:27] LABS: Absolute Lymphocytes (CBC) 2.4 K/uL (0.7-4.9); Hematocrit 29.6 % (36.0-45.0); Lymphocytes % 18.1 % (15.3-44.8); MCV 87.2 fL (80-100); MPV 7.4 fL (7.6-11.3); RBC Red Blood Cell Count 3.39 M/uL (3.86-4.86)
[2022-02-14 03:37] LABS: Albumin 1.7 g/dL (3.4-5.0); Bilirubin Total 0.3 mg/dL (0.2-1.0); Potassium 3.4 mmol/L (3.5-5.1); Protein, Total 5.9 g/dL (6.4-8.2)
[2022-02-14] MEDS: POTASSIUM CL SA 10 MEQ TAB PO SCH ×2 (06:44→09:01)
--- NOTE | 2022-02-14 07:56 | P.PN ---
Date of Service: 02/13/22 Subjective Patient is clinically feeling better. I was able to walk to the bathroom door. Her strength has improved. Clinically she appears to be doing better. Repeat blood cultures are pending for MRSA bacteremia. Infectious Disease consultation has been obtained. Patient may need outpatient IGLESIA if cultures remain negative. If they are positive that she may need to proceed with IGLESIA on this admission. patient lives at home with her and she is wanting to go back home at discharge. Patient with advanced dementia and her stays at her bedside. 02/12 Pt was admitted to the hospital a couple of days ago and ruled out for ACS. She had a stress test and an echocardiogram performed that were unremarkable. However, her blood culture came back positive for MRSA and she was called in told to come back to the hospital. She has been very debilitated. Patient's states that She has not walked in a week. We will work with physical therapy and get her out of bed. If she is ambulating better than anticipate discharge over the next 24 to 48 hours. Repeat cultures are negative. Unknown source. She has had frequent UTIs as well. Review of Systems 10-point ROS is otherwise unremarkable Physical Examination - Vital Signs reviewed - Physical Exam General: Alert, In no apparent distress, Cachectic, Demented Respiratory: Clear to auscultation bilaterally, Normal air movement Cardiovascular: Regular rate/rhythm, Normal S1 S2 Gastrointestinal: Normal bowel sounds, No tenderness Neurological: Normal speech, Normal tone, Normal affect Assessment & Plan - Problems (Diagnosis) (1) MRSA bacteremia Current Visit: Yes Status: Acute (2) CAD (coronary artery disease) Current Visit: No Status: Chronic Qualifiers: [place] vs. transplanted heart: [place] heart Associated angina: with unstable angina (3) HTN (hypertension) Current Visit: No Status: Chronic Qualifiers: Hypertension type: essential hypertension Qualified Code(s): I10 - Essential (primary) hypertension (4) Vascular dementia Current Visit: No Status: Chronic - Plan Continue with plan of care as mentioned below: 1. Continue with IV vancomycin ; repeat blood cultures have been negative. Consult Infectious Disease for Further recommendations. 2. Repeat blood cultures are pending 3. Physical therapy evaluation 4. Repeat labs including checking procalcitonin level 5. Out of bed and ambulate 6. GI and DVT prophylaxis Discharge Plan: Home Plan to discharge in: 24hrs with home health-PT/Nursing - Advance Directives Does patient have a Living Will: Yes Does patient have a Durable POA for Healthcare: Yes - Code Status/Comfort Care Code Status Assessed: Yes Code Status: Full Code Critical Care: No Time Spent Managing PTS Care (In Minutes): 45
[2022-02-14] MEDS: POTASSIUM 25 MEQ EFFERV TAB PO SCH ×2 (09:02→21:00)
[2022-02-14] MEDS: FLUOXETINE 20 MG CAP PO SCH (09:02)
[2022-02-14] MEDS: lisinopriL 5 MG TAB PO SCH ×2 (09:02→18:09)
[2022-02-14] MEDS: carvediloL 6.25 MG TAB PO SCH ×2 (09:03→21:27)
[2022-02-14] MEDS: OXYBUTYNIN CHLORIDE 5 MG TAB PO SCH (09:03)
--- NOTE | 2022-02-14 16:38 | P.PN ---
Subjective Date of Service: 02/14/22 Chief Complaint: Patient admitted with MRSA bacteremia Subjective: No new changes No acute events overnight. She denies any particular complaints this morning. Repeat blood cultures have remained negative. Review of Systems is unable to be obtained (advanced dementia) Physical Examination - Vital Signs Temperature: 97.7 F Blood Pressure: 122/71 Pulse: 78 Respirations: 14 Pulse Ox (%): 98 - Physical Exam General: Alert, In no apparent distress, Demented HEENT: Atraumatic, PERRLA, Mucous membr. moist/pink, EOMI, Sclerae nonicteric Neck: Supple, JVD not distended Respiratory: Clear to auscultation bilaterally, Normal air movement Cardiovascular: No edema, Regular rate/rhythm, Normal S1 S2, No gallops, No rubs, No murmurs Gastrointestinal: Normal bowel sounds, Soft and benign, Non-distended, No tenderness, No rebound, No guarding Musculoskeletal: No clubbing Integumentary: No rashes Neurological: Dementia - Studies Laboratory Data (last 24 hrs) 02/14/22 03:03: Sodium 141, Potassium 3.4 L, BUN 14, Creatinine 0.78, Glucose 112 H, Magnesium 2.0, Total Bilirubin 0.3, AST 35, ALT 26, Alkaline Phosphatase 225 H 02/14/22 03:03: WBC 13.1 H, Hgb 10.0 L, Hct 29.6 L, Plt Count 627 H D Medications List Reviewed: Yes Assessment And Plan - Plan # Methicillin-Resistant Staphylococcus Aureus Bacteremia - 4/4 blood cultures from last admission positive for MRSA - Not currently meeting SIRS criteria - Repeats have shown no growth to date - Consulted Infectious Diseases and Cardiology - spoke with Drs. Forte and Sanjeev - Currently we do not have capability to perform IGLESIA until 02/16 - Dr. Pace advised a STAT TTE to compare to prior TTE and evaluate for vegetations - Appreciate ID recs regarding duration of antibiotics and inpatient vs outpatient IGLESIA - Continue vancomycin # Coronary Artery Disease s/p CABG # Hypertension # Hyperlipidemia Recently admitted and evaluated for possible NSTEMI. NM stress test revealed, "no stress-induced ischemia." - Continue home lisinopril, carvedilol # Advanced Dementia - Continue home donepezil Estiven Rojas M.D. Discharge Plan: Home Plan to discharge in: 48 Hours
[2022-02-14] MEDS: VANCOMYCIN 1 GM in NA CHLORIDE 0.9% 250 ML IVPB SCH (17:56)
--- NOTE | 2022-02-14 18:35 | CON ---
History Of Present Illness: This is an 81-year-old female. I was consulted for MRSA bacteremia. Th e patient is admitted with chest discomfort. Has significant history of severe dementia. Microbiolo gy called the patient's family to come back because blood cultures were positive for MRSA even the pa daljit was here originally for end-stage dementia evaluation. The patient is currently getting IV ant ibiotic, vancomycin. Denies any headache, nausea, vomiting, chest pain, abdominal pain, constipation , diarrhea, poor appetite. Past Medical History: Coronary artery disease, hypertension, vascular dementia, CABG, hysterectomy, left lumpectomy, back surgery. Social History: Nonsmoker, nondrinker. Family History: Noncontributory. Medications: Vancomycin. See MAR for other medications. Allergies: MEPERIDINE. Review of Systems: A 10-point review was performed. Physical Examination: General: This is an 81-year-old female, lying in bed, not in any acute cardiopulmonary distress. Vital Signs: Temperature 97.7, pulse 84, respirations 12, blood pressure 178/58. HEENT: Unremarkable. Neck: Supple. Lungs: Clear to auscultation. Heart: S1, S2. Regular. Abdomen: Soft, nontender. Bowel sounds present. Extremity: No edema. Diagnostic Data: Chest x-ray shows right PICC line in place. No infiltrates. Repeat blood culture from 02/11 and 02/14 now are negative to date. Assessment And Plan: Incidental methicillin-resistant Staphylococcus aureus bacteremia, most likely source of upper respiratory versus skin. Recommend to continue antibiotic for 2 weeks after negative blood cultures. Recommend to have BMP and vanc trough done twice a week while the patient is on emilee atment of 14 days status post negative blood culture from 02/11. We will follow the patient closely. Thank you Dr. Rojas for consult. PHAM/HUONG Voice ID: [id number] Report ID: [id number]
[2022-02-14] MEDS: DONEPEZIL HCL 5 MG TAB PO SCH (21:27)
[2022-02-14] MEDS: MIRTAZAPINE 15 MG TAB PO SCH (21:28)
[2022-02-15 04:08] LABS: Absolute Lymphocytes (CBC) 1.8 K/uL (0.7-4.9); Hematocrit 28.5 % (36.0-45.0); Lymphocytes % 13.5 % (15.3-44.8); MCV 86.5 fL (80-100); MPV 7.2 fL (7.6-11.3); RBC Red Blood Cell Count 3.29 M/uL (3.86-4.86)
[2022-02-15 04:29] LABS: Albumin 1.7 g/dL (3.4-5.0); Bilirubin Total 0.3 mg/dL (0.2-1.0); Potassium 3.8 mmol/L (3.5-5.1); Protein, Total 6.1 g/dL (6.4-8.2)
[2022-02-15] MEDS: POTASSIUM CL SA 10 MEQ TAB PO ONE ×2 (04:32→05:23)
--- NOTE | 2022-02-15 08:54 | ECHO ---
HEIGHT: 5 ft 2 in WEIGHT: 104 lb 15.993 oz DATE OF STUDY: 02/14/[address]: Estiven Rojas MD 2-DIMENSIONAL: YES M.MODE: YES DOPPLER: YES COLOR FLOW: YES TDS: PORTABLE: YES DEFINITY: BUBBLE STUDY: DIAGNOSIS: VEGETATION CARDIAC HISTORY: CATHERIZATION: YES SURGERY: YES PROSTHETIC VALVE: NO PACEMAKER: YES MEASUREMENTS (cm) DIASTOLIC (NORMALS) SYSTOLIC (NORMALS) IVSd 0.9 (0.6-1.2) LA Diam 2.8 (1.9-4.0) LVEF 30-35% LVIDd 4.8 (3.5-5.7) LVIDs 3.9 (2.0-3.5) %FS 17% LVPWd 1.1 (0.6-1.2) Ao Diam 2.4 (2.0-3.7) 2 DIMENSIONAL ASSESSMENT: RIGHT ATRIUM: NORMAL LEFT ATRIUM: NORMAL RIGHT VENTRICLE: NORMAL LEFT VENTRICLE: NORMAL SIZE TRICUSPID VALVE: NORMAL MITRAL VALVE: NORMAL PULMONIC VALVE: NORMAL AORTIC VALVE: NORMAL PERICARDIAL EFFUSION: NONE AORTIC ROOT: NORMAL LEFT VENTRICULAR WALL MOTION: SEVERELY GLOBAL HYPOKINESIS DOPPLER/COLOR FLOW: AORTIC REGURGITATION - MODERATE. TRICUSPID REGURGITATION - MODERATE. COMMENTS: SEVERE GLOBAL HYPOKINESIS. EJECTION FRACTION 30-35%. NO VEGETATION OR [place]. MODERATE AORTIC REGURGITATION, TRICUSPID REGURGITATION. TECHNOLOGIST: CARLTON ENRIQUEZ
[2022-02-15] MEDS: POTASSIUM 25 MEQ EFFERV TAB PO SCH ×3 (09:00→21:00)
[2022-02-15] MEDS: POTASSIUM CL SA 10 MEQ TAB PO SCH (09:31)
[2022-02-15] MEDS: carvediloL 6.25 MG TAB PO SCH ×2 (09:32→21:30)
[2022-02-15] MEDS: FLUOXETINE 20 MG CAP PO SCH (09:32)
[2022-02-15] MEDS: lisinopriL 5 MG TAB PO SCH ×2 (09:32→21:30)
[2022-02-15] MEDS: OXYBUTYNIN CHLORIDE 5 MG TAB PO SCH (09:32)
--- NOTE | 2022-02-15 15:27 | P.PN ---
Subjective Date of Service: 02/15/22 Chief Complaint: Patient admitted with MRSA bacteremia No acute events overnight. Repeat blood cultures have remained negative. She endorses no concerns this morning. Review of Systems is unable to be obtained Physical Examination - Vital Signs Temperature: 97.5 F Blood Pressure: 136/51 Pulse: 74 Respirations: 20 Pulse Ox (%): 96 - Studies Laboratory Data (last 24 hrs) 02/15/22 03:56: Sodium 137, Potassium 3.8, BUN 10, Creatinine 0.70, Glucose 127 H, Total Bilirubin 0.3, AST 24, ALT 23, Alkaline Phosphatase 221 H 02/15/22 03:56: WBC 13.7 H, Hgb 9.6 L, Hct 28.5 L, Plt Count 687 H Medications List Reviewed: Yes Assessment And Plan - Plan - Physical Exam General: Alert, In no apparent distress, Demented HEENT: Atraumatic, PERRLA, Mucous membr. moist/pink, EOMI, Sclerae nonicteric Neck: Supple, JVD not distended Respiratory: Clear to auscultation bilaterally, Normal air movement Cardiovascular: No edema, Regular rate/rhythm, Normal S1 S2, No gallops, No rubs, No murmurs Gastrointestinal: Normal bowel sounds, Soft and benign, Non-distended, No tenderness, No rebound, No guarding Musculoskeletal: No clubbing Integumentary: No rashes Neurological: Dementia # Methicillin-Resistant Staphylococcus Aureus Bacteremia # Acute Systolic Congestive Heart Failure with Reduced Ejection Fraction (30-35 %) # Moderate Aortic Triscuspid Regurgitation - 4/4 blood cultures from last admission positive for MRSA - Not currently meeting SIRS criteria - Repeats have shown no growth to date - Consulted Infectious Diseases and Cardiology - spoke with Drs. Forte and Sanjeev - Currently we do not have capability to perform IGLESIA until 02/16 - Dr. Pace advised a STAT TTE to compare to prior TTE and evaluate for vegetations - Repeat TTE = "severe global hypokinesis. ejection fraction 30-35%. no vegetation or thombus. moderate aortic regurgitation, tricuspid regurgitation." - LVEF on 02/09 was 60 % - notified Dr. Pace - Serial troponins requested - Appreciate ID recs regarding duration of antibiotics and inpatient vs outpatient IGLESIA - Continue vancomycin # Coronary Artery Disease s/p CABG # Hypertension # Hyperlipidemia Recently admitted and evaluated for possible NSTEMI. NM stress test revealed, "no stress-induced ischemia." - Continue home lisinopril, carvedilol # Advanced Dementia - Continue home donepezil Estiven Rojas M.D.
[2022-02-15] MEDS: VANCOMYCIN 1 GM in NA CHLORIDE 0.9% 250 ML IVPB SCH (19:37)
[2022-02-15] MEDS ORDERED: ASPIRIN 325 MG TAB PO ONE (20:15)
[2022-02-15] MEDS: DONEPEZIL HCL 5 MG TAB PO SCH (21:30)
[2022-02-15] MEDS: ENOXAPARIN 60 MG/0.6 ML SQ SCH (21:30)
[2022-02-15] MEDS: MIRTAZAPINE 15 MG TAB PO SCH (21:30)
[2022-02-15] MEDS: ATORVASTATIN 40 MG TAB PO SCH (22:33)
[2022-02-16 04:11] LABS: Absolute Lymphocytes (CBC) 2.2 K/uL (0.7-4.9); Hematocrit 25.7 % (36.0-45.0); Lymphocytes % 22.8 % (15.3-44.8); MCV 86.5 fL (80-100); RBC Red Blood Cell Count 2.97 M/uL (3.86-4.86)
[2022-02-16 04:37] LABS: Albumin 1.5 g/dL (3.4-5.0); Bilirubin Total 0.3 mg/dL (0.2-1.0); Potassium 3.9 mmol/L (3.5-5.1); Protein, Total 5.7 g/dL (6.4-8.2)
[2022-02-16] MEDS: POTASSIUM 25 MEQ EFFERV TAB PO SCH ×2 (09:00→20:57)
[2022-02-16] MEDS: ENOXAPARIN 60 MG/0.6 ML SQ SCH ×2 (10:01→21:05)
[2022-02-16] MEDS: OXYBUTYNIN CHLORIDE 5 MG TAB PO SCH (10:01)
[2022-02-16] MEDS: lisinopriL 5 MG TAB PO SCH ×2 (10:02→20:58)
[2022-02-16] MEDS: FLUOXETINE 20 MG CAP PO SCH (10:02)
[2022-02-16] MEDS: ASPIRIN EC 81 MG TAB PO SCH (10:04)
[2022-02-16] MEDS: carvediloL 6.25 MG TAB PO SCH ×2 (10:04→20:58)
[2022-02-16] MEDS: POTASSIUM CL SA 10 MEQ TAB PO SCH (10:05)
[2022-02-16] MEDS: ONDANSETRON 4 MG/2 ML VIAL IV PRN (12:41)
--- NOTE | 2022-02-16 14:29 | P.PN ---
Subjective Date of Service: 02/16/22 Chief Complaint: Patient admitted with MRSA bacteremia No acute events overnight. Repeat blood cultures have remained negative. She endorses no concerns this morning. Her son was present in the room this morning and we reviewed her plan of care in detail. Review of Systems is unable to be obtained Physical Examination - Vital Signs Temperature: 987.7 F Blood Pressure: 147/61 Pulse: 73 Respirations: 18 Pulse Ox (%): 95 - Studies Laboratory Data (last 24 hrs) 02/16/22 03:50: Sodium 141, Potassium 3.9, BUN 12, Creatinine 0.77, Glucose 103, Total Bilirubin 0.3, AST 20, ALT 18, Alkaline Phosphatase 191 H 02/16/22 03:50: WBC 9.7 D, Hgb 8.8 L, Hct 25.7 L, Plt Count 601 H Microbiology Data (last 24 hrs): 02/11/22 10:30 Blood - Blood Aerobic Blood Culture - Final No growth in 5 days. 02/11/22 10:30 Blood - Blood Anaerobic Blood Culture - Final No growth in 5 days. Medications List Reviewed: Yes Assessment And Plan - Plan - Physical Exam General: Alert, In no apparent distress, Demented HEENT: Atraumatic, PERRLA, Mucous membr. moist/pink, EOMI, Sclerae nonicteric Neck: Supple, JVD not distended Respiratory: Clear to auscultation bilaterally, Normal air movement Cardiovascular: No edema, Regular rate/rhythm, Normal S1 S2, No gallops, No rubs, No murmurs Gastrointestinal: Normal bowel sounds, Soft and benign, Non-distended, No tenderness, No rebound, No guarding Musculoskeletal: No clubbing Integumentary: No rashes Neurological: Dementia # Methicillin-Resistant Staphylococcus Aureus Bacteremia # Acute Systolic Congestive Heart Failure with Reduced Ejection Fraction (30-35 %) # Elevated Troponin - concern for Type II NSTEMI ([place] Ischemia) # Moderate Aortic and Triscuspid Regurgitation - 4/4 blood cultures from last admission positive for MRSA - Not currently meeting SIRS criteria - Repeats have shown no growth to date - Consulted Infectious Diseases and Cardiology - spoke with Drs. Forte, Sanjeev, and Vickie - Dr. Pace advised a STAT TTE to compare to prior TTE and evaluate for vegetations - Repeat TTE = "severe global hypokinesis. ejection fraction 30-35%. no vegetation or thombus. moderate aortic regurgitation, tricuspid regurgitation." - LVEF on 02/09 was 60 % - notified Dr. Pace - Serial troponins requested: 284.1 -> 274.7 -> 302.0 - Spoke with Dr. Johnston today, plans for cardiac stress test tomorrow - Appreciate ID recs regarding duration of antibiotics and inpatient vs outpatient IGLESIA - Continue vancomycin # Coronary Artery Disease s/p CABG # Hypertension # Hyperlipidemia Recently admitted and evaluated for possible NSTEMI. NM stress test revealed, "no stress-induced ischemia." - Continue home lisinopril, carvedilol # Advanced Dementia - Continue home donepezil Estiven Rojas M.D.
--- NOTE | 2022-02-16 15:38 | PN ---
Subjective: The patient is lying in bed. No new acute event. Daughter is by the bedside. Objective: Vital Signs: Temperature 98, pulse 73, respiration 18, blood pressure 147/60. Lungs: Basal crackles. Heart: S1, S2. Regular. Abdomen: Soft, nontender. Bowel sounds present. Extremities: No edema. Laboratory Data: Labs reviewed. White count is normalized, hemoglobin 8.8, platelets 601. Albumin level is 1.5, troponin level is 302. The patient is currently on vancomycin. Assessment And Plan: MRSA bacteremia, currently on IV antibiotics, anemia of chronic disease, protei n calorie malnourishment. Leukocytosis has resolved. Elevated troponin being managed by Cardiology and hospitalist team. We will follow the patient as needed. NF/MODL Voice ID: [id number] Report ID: [id number]
[2022-02-16] MEDS: VANCOMYCIN 1 GM in NA CHLORIDE 0.9% 250 ML IVPB SCH (18:06)
[2022-02-16] MEDS: ATORVASTATIN 40 MG TAB PO SCH (20:58)
[2022-02-16] MEDS: DONEPEZIL HCL 5 MG TAB PO SCH (20:58)
[2022-02-16] MEDS: MIRTAZAPINE 15 MG TAB PO SCH (20:58)
[2022-02-17 02:30] VITALS: O2SAT 96
[2022-02-17] MEDS: ACETAMINOPHEN 325 MG TABLET PO PRN (05:46)
[2022-02-17 05:58] LABS: Absolute Lymphocytes (CBC) 2.4 K/uL (0.7-4.9); Hematocrit 27.1 % (36.0-45.0); MCV 88.4 fL (80-100); MPV 7.2 fL (7.6-11.3); RBC Red Blood Cell Count 3.06 M/uL (3.86-4.86)
[2022-02-17 06:00] LABS: Albumin 1.7 g/dL (3.4-5.0); Bilirubin Total 0.4 mg/dL (0.2-1.0); Potassium 3.9 mmol/L (3.5-5.1); Protein, Total 6.1 g/dL (6.4-8.2)
[2022-02-17] MEDS: POTASSIUM 25 MEQ EFFERV TAB PO SCH (09:00)
[2022-02-17] MEDS: POTASSIUM CL SA 10 MEQ TAB PO SCH (09:00)
--- NOTE | 2022-02-17 09:40 | P.DS ---
Admission Date: 02/10/22 Discharge Date: 02/17/22 Disposition: ROUTINE DISCHARGE Discharge Condition: GOOD Reason for Admission: Patient admitted with MRSA bacteremia Consultations: 1. Cardiology 2. Infectious Diseases Hospital Course: DIAGNOSES: # Methicillin-Resistant Staphylococcus Aureus Bacteremia # Acute Systolic Congestive Heart Failure with Reduced Ejection Fraction (30-35 %) # Elevated Troponin - concern for Type II NSTEMI (Demand Ischemia) # Moderate Aortic and Triscuspid Regurgitation # Coronary Artery Disease s/p CABG # Hypertension # Hyperlipidemia # Advanced Dementia HOSPITAL COURSE: Mrs. Michaela Matias is an 81-year-old female with a past medical history significant for advanced dementia, coronary artery disease s/p CABG, heart failure with reduced ejection fraction (30-35%), hypertension, and hyperlipidemia who was admitted to [facility] on 02/11/2022 for MRSA bacteremia. In January 2022, she was admitted to the hospital for possible NSTEMI. She was discharged home because her nuclear medicine stress test revealed, "no stress test induced ischemia." Following discharge, her blood cultures returned positive for methicillin-resistant Staphylococcus Aureus, so she was notified and brought back to the hospital for further evaluation. Although she tested positive for MRSA, her repeat cultures still show no growth to date. Cardiology and Infectious Diseases were consulted. She was started on vancomycin per Dr. Forte's recommendations. A repeat transthoracic echocardiogram was obtained, which revealed "severe global hypokinesis. Ejection fraction 30-35%. No vegetation or thrombus. Moderate aortic regurgitation, tricuspid regurgitation." This was highly concerning as her ejection fraction on 02/09/2022 was 60%. Her troponins were trended and an EKG was obtained. Troponin trend was 284.1 -> 274.7 -> 302.0. It was recommended that she have a repeat cardiac stress test. She, her , and her son stated that, if possible, they would prefer to have a repeat stress test and a possible transesophageal echocardiogram performed as an outpatient. I discussed this option with Dr. Johnston, who cleared her for discharge with an outpatient cardiology follow-up. In regards to her antibiotics, I spoke with Dr. Forte and he recommended 2 weeks of vancomycin. With the assistance of case management, home health was arranged for her to receive vancomycin. On 02/17/2022, she was seen on morning rounds and deemed medically stable for discharge. She was discharged with instructions to schedule follow-up appointments with her PCP (Dr. Holly) in 3-5 days and with cardiology (Dr. Johnston) in 5-7 days. She and her family members were given the opportunity to ask questions and reported no further questions. Furthermore, all questions were answered to the best of my ability. Today, I personally spent 45 minutes with her, of which greater than 50% of the time was spent in patient education, counseling, and coordination of care as described above. - Physical Exam General: Alert, In no apparent distress, Demented HEENT: Atraumatic, PERRLA, Mucous membr. moist/pink, EOMI, Sclerae nonicteric Neck: Supple, JVD not distended Respiratory: Clear to auscultation bilaterally, Normal air movement Cardiovascular: No edema, Regular rate/rhythm, Normal S1 S2, No gallops, No rubs, No murmurs Gastrointestinal: Normal bowel sounds, Soft and benign, Non-distended, No tenderness, No rebound, No guarding Musculoskeletal: No clubbing Integumentary: No rashes Neurological: Dementia Vital Signs/Physical Exam: Temp Pulse Resp BP Pulse Ox 98.4 F 76 15 162/67 H 93 02/17/22 04:00 02/17/22 04:00 02/16/22 20:00 02/17/22 04:00 02/17/22 04:00 Laboratory Data at Discharge: WBC 9.6 K/uL (4.3-10.9) 02/17/22 05:35 Hgb 9.1 g/dL (12.0-15.0) L 02/17/22 05:35 Hct 27.1 % (36.0-45.0) L 02/17/22 05:35 Plt Count 691 K/uL (152-406) H 02/17/22 05:35 Sodium 140 mmol/L (136-145) 02/17/22 05:35 Potassium 3.9 mmol/L (3.5-5.1) 02/17/22 05:35 BUN 10 mg/dL (7-18) 02/17/22 05:35 Creatinine 0.79 mg/dL (0.55-1.3) 02/17/22 05:35 Glucose 106 mg/dL (74-106) 02/17/22 05:35 Magnesium 2.0 mg/dL (1.8-2.4) 02/14/22 03:03 Total Bilirubin 0.4 mg/dL (0.2-1.0) 02/17/22 05:35 AST 26 U/L (15-37) 02/17/22 05:35 ALT 19 U/L (12-78) 02/17/22 05:35 Alkaline Phosphatase 225 U/L (45-117) H 02/17/22 05:35 Home Medications: Donepezil HCl [Aricept] 10 mg PO BEDTIME 09/03/19 Rosuvastatin Calcium 40 mg PO BEDTIME 09/03/19 carvediloL [Coreg*] 3.125 mg PO DAILY #60 tab 06/08/20 Fluoxetine HCl [Prozac] 20 mg PO DAILY 02/07/22 Lisinopril [Zestril] 2.5 mg PO DAILY 02/07/22 Apixaban [Eliquis *] 2.5 mg PO BID #60 tablet 02/17/22 Furosemide 20 mg PO DAILY #30 tab 02/17/22 New Medications: Apixaban [Eliquis *] 2.5 mg PO BID #60 tablet Furosemide 20 mg PO DAILY #30 tab Physician Discharge Instructions: 1. Please schedule a follow-up appointment with your PCP in 3-5 days 2. Please schedule a follow-up with Cardiology (Dr. Johnston) in 5-7 days to discuss cardiac stress test and possible transesophageal echocardiogram (heart ultrasound from the upper endoscopy as we discussed) - Phone number to clinic is [phone] 3. Please follow-up with Home Health to complete 2 weeks of IV antibiotics (vancomycin) Diet: ADA Activity: Ad dwain Followup: Derik Johnston MD [ACTIVE - CAN ADMIT] - 1 Week (Energy Project Manager- call to schedule an appointment ) Rodrick Holly MD [ACTIVE - CAN ADMIT] - (Call to schedule an appointment) Time spent managing pt's care (in minutes): 45
[2022-02-17] MEDS: lisinopriL 5 MG TAB PO SCH (09:44)
[2022-02-17] MEDS: FLUOXETINE 20 MG CAP PO SCH (09:44)
[2022-02-17] MEDS: OXYBUTYNIN CHLORIDE 5 MG TAB PO SCH (09:44)
[2022-02-17] MEDS: ASPIRIN EC 81 MG TAB PO SCH (09:44)
[2022-02-17] MEDS: ENOXAPARIN 60 MG/0.6 ML SQ SCH (09:44)
[2022-02-17] MEDS: carvediloL 6.25 MG TAB PO SCH (09:44)
[2022-02-17 16:12] VITALS: BP 127/61; TEMP 98
[2022-02-17] MEDS: VANCOMYCIN 1 GM in NA CHLORIDE 0.9% 250 ML IVPB SCH (17:38)
--- NOTE | 2022-02-18 13:27 | PN ---
Date of Progress Note: 02/16/2022 Ms. Matias has been in and out of the hospital. She had came in eventually with bacteremia, remarkable decrease in ejection fraction from normal recently to 30% to 35%. She is on antibiotics. Has moder ate aortic regurgitation. Has been followed by Infectious Disease. Has a history of CAD, CABG, hype rtension, dyslipidemia. Dr. Pace had suggested getting another stress test only because of her new decrease in ejection fraction. I think family have decided to do that as an outpatient. Case was d iscussed with Dr. Rojas and Dr. Pace. GWENDOLYN/ALICJAL Voice ID: [id number] Report ID: [id number]
== END 2022-02-17 18:54 | disposition home health service (06) | DRG 871 ==
LOC: 2ND 15:33
PROVIDERS: ADMIT Internal Medicine Sleep Medicine; ATTEND Internal Medicine Sleep Medicine
PROC: 02HV33Z Insertion of Infusion Device into Superior Vena Cava, Percutaneous Approach (ICD-10-PCS; principal; 2022-02-12)
DX: R78.81 Bacteremia (principal); I50.21 Acute systolic (congestive) heart failure; R64 Cachexia; Z68.1 Body mass index [BMI] 19.9 or less, adult; E46 Unspecified protein-calorie malnutrition; B95.62 Methicillin resistant Staphylococcus aureus infection as the cause of diseases classified elsewhere; I25.10 Atherosclerotic heart disease of native coronary artery without angina pectoris; F01.50 Vascular dementia, unspecified severity, without behavioral disturbance, psychotic disturbance, mood disturbance, and anxiety; I11.0 Hypertensive heart disease with heart failure; Z95.1 Presence of aortocoronary bypass graft; I08.2 Rheumatic disorders of both aortic and tricuspid valves; E78.5 Hyperlipidemia, unspecified
CPT/HCPCS: 36415; 36569; 71045; 80053; 80202; 83735; 84145; 84484; 85025; 87040; 93306; 97116; 97161; 97530; J1650; J2405; J3370; J7030; J7050

== ENCOUNTER 2022-03-22 09:34 | Inpatient (IN) | payer OTHER ==
--- OUTSIDE RECORDS SUMMARY | 2022-03-22 09:41 | XMS REPORT | Continuity of Care Document ---
:1940 Author Organization [facility] t Address [address] [place] [place] [address] Care Team Providers Name Role Phone Asked, No Pcp Primary Care Physician Unavailable Only, Adc Test Attending Clinician Unavailable Ousmane Vides MD Attending Clinician Tamia Disla MD Attending Clinician [phone] Doctor Unassigned, [place] Attending Clinician Unavailable Chencho Alexandra MD Attending Clinician Geraldo Lr MD Attending Clinician Payers Payer Name Policy Type Policy Number Effective Date Expiration Date S our MEDICARE PART A \\T\\ [id number] 2006 B 00:00:00 COMMERCIAL [id number] 2018 NON-CONTRACT 00:00:00 GENERIC Problems Condition Condition Condition Status Onset Resolution Last Treating Co mments Source Name Details Category Date Date Treatment Clinician Date Poor Poor Disease Active Univers appetite appetite 03-24 ity of 00:00: [place] [address] [facility] Dehydratio Dehydratio Disease Active U nivers n n 03-20 ity of 00:00: [place] [address] 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 Lethargy Lethargy Disease Active Unive rs 03-20 ity of 00:00: [place] 00 [facility] Medication Medication Disease Active U nivers refill refill 03-20 ity of 00:00: [place] [address] [facility] Urinary Urinary Disease Active Univers tract tract 8 [place] of [place] without without 00 [place] hematuria, hematuria, Br anch site site unspecifie unspecifie d d Acute Acute Disease Active Univers bilateral bilateral 03-06 ity of low back low back 00:00: [place] pain pain 00 Medical without without Branch sciatica sciatica Flank pain Flank pain Disease Active U nivers 8 ity of 00:00: [place] 00 [facility] HTN HTN Disease Active 2017-07 [facility] (hypertens (hypertens 2-14 st ion) ion) 00:00: Hospita 00 l Type 2 Type 2 Disease Active [facility] diabetes diabetes 6-22 st mellitus mellitus 00:00: Hospit a 00 l PUD PUD Disease Active [facility] (peptic (peptic 6-22 st ulcer ulcer 00:00: Hospita disease) disease) 00 l CKD CKD Disease Active [facility] (chronic (chronic 6-22 st kidney kidney 00:00: Hospita disease), disease), 00 l stage III stage III Dementia Dementia Disease Active Unive rs ity of [facility] Depression Depression Disease Active U nivers ity of [facility] Diabetes Diabetes Disease Active Unive rs ity of [facility] High High Disease Active Univers cholestero cholestero it y of l l [facility] Celiac Celiac Disease Active Univers disease disease ity of [facility] Allergies, Adverse Reactions, Alerts Allergy Allergy Status Severity Reaction(s) Onset Inactive Treating Comm ents Source Name Type Date Date Clinician Gluten Propensi Active Unknown - Unive rs ty to See comments 3-27 ity of adverse 00:00: [place] reaction 00 Medical s Branch GLUTEN DRUG Active Unknown-Cmnt Univ ers INGREDI 3-27 ity of 00:00: [place] 00 Medical Branch Meperidi Propensi Active Hallucinatio 2016-07 Univers ne Hcl ty to ns 0-18 ity of adverse 00:00: [place] reaction 00 Medical s Branch Prometha Propensi Active Hallucinatio 2016-07 Univers zine Hcl ty to ns 0-18 ity of adverse 00:00: [place] reaction 00 Medical s Branch MEPERIDI DRUG Active Hallucinates 2016-07 Un tracee NE HCL INGREDI 0-18 ity of 00:00: [place] 00 Medical Branch PROMETHA DRUG Active Hallucinates 2016-07 Un tracee ZINE HCL INGREDI 0-18 ity of 00:00: [place] 00 Medical Branch Sulfamet Propensi Active Nausea, Metho di hoxazole ty to 6-[address] -Trimeth adverse 00:00: Hospita oprim reaction 00 l s to drug Meperidi Propensi Active GI Nausea Method i ne ty to Intolerance 6-[address] adverse 00:00: Hospita reaction 00 l s to drug Family History Family Member Diagnosis Comments Start Date Stop Date Source Natural father Diabetes [facility] Social History Social Habit Start Date Stop Date Quantity Comments Source Alcohol intake 2018-09-07 2018-09-07 Current [facility] 00:00:00 00:00:00 non-drinker of Hospital alcohol (finding) Tobacco use and 2017-12-01 2017-12-01 Smokeless tobacco [facility] exposure 00:00:00 00:00:00 non-user Hospital Tobacco Comment 2017-01-04 2017-01-04 up to 1ppd x 15 Meth odist 00:00:00 00:00:00 -20 years Hospital History of 1987-01-04 Smoker [facility] tobacco use 00:00:00 Hospital Sex Assigned At [birth year] [facility] 00:00:[facility] 00:00:00 Hospital Smoking Status Start Date Stop Date Source Former smoker 2019-03-22 00:00:00 2019-03-22 00:00:00 [facility]i [facility] Medications Ordered Filled Start Stop Current Ordering Indication Dosage Frequency Signature Comments Components Source Medication Medication Date Date Medication? Clinician (SIG) Name Name MIRTAZAPINE 2018-07 Yes [id number] TAKE ONE Univers 15 mg 0-13 TABLET BY ity of tablet 00:00: MOUTH AT [address] MIRTAZAPINE 2018-07 Yes [id number] TAKE ONE Univers 15 mg 0-13 TABLET BY ity of tablet 00:00: MOUTH AT [address] MIRTAZAPINE 2018-07 Yes [id number] TAKE ONE Univers 15 mg 0-13 TABLET BY ity of tablet 00:00: MOUTH AT [address] MIRTAZAPINE 2018-07 Yes [id number] TAKE ONE Univers 15 mg 0-13 TABLET BY ity of tablet 00:00: MOUTH AT [address] rosuvastati Yes TAKE ONE Me thodi n (CRESTOR) 9-[address] 40 MG 00:00: MOUTH Hospita tablet 00 DAILY l amLODIPine Yes TAKE ONE Met hodi (NORVASC) 5 9-[address] mg tablet 00:00: MOUTH Hospita 00 DAILY l traZODone Yes [id number] TAKE ONE [facility] (DESYREL) 9-[address] 100 MG 00:00: MOUTH Hospita tablet 00 EVERY l NIGHT AT BEDTIME FLUoxetine Yes TAKE THREE M ethodi (PROzac) 20 9-[address] MG capsule 00:00: BY MOUTH Hos [facility]os 00 DAILY l rosuvastati Yes TAKE ONE Me thodi n (CRESTOR) 9-[address] 40 MG 00:00: MOUTH Hospita tablet 00 DAILY l amLODIPine Yes TAKE ONE Met hodi (NORVASC) 5 9-[address] mg tablet 00:00: MOUTH Hospita 00 DAILY l traZODone 2019- Yes [id number] TAKE ONE [facility] (DESYREL) 9-[address] 100 MG 00:00: MOUTH Hospita tablet 00 EVERY l NIGHT AT BEDTIME FLUoxetine Yes TAKE THREE M ethodi (PROzac) 20 9-[address] MG capsule 00:00: BY MOUTH Hos rios 00 DAILY l rosuvastati Yes TAKE ONE Me thodi n (CRESTOR) 9-[address] 40 MG 00:00: MOUTH Hospita tablet 00 DAILY l amLODIPine Yes TAKE ONE Met hodi (NORVASC) 5 03-[address] mg tablet 00:00: MOUTH Hospita 00 DAILY l traZODone Yes [id number] TAKE ONE [facility] (DESYREL) 03-[address] 100 MG 00:00: MOUTH Hospita tablet 00 EVERY l NIGHT AT BEDTIME FLUoxetine Yes TAKE THREE M ethodi (PROzac) 20 03-[address] MG capsule 00:00: BY MOUTH Hos rios 00 DAILY l Food Yes [id number] 1 bottle Unive rs Supplement, 03-24 with ity of Lactose-[place] 00:00: [place], [place] (ENSURE 00 to three Medica l ACTIVE HIGH bottles Branc h PROTEIN) daily liquid Food Yes [id number] 1 bottle Unive rs Supplement, 03-24 with ity of Lactose-[place] 00:00: [place], [place] (ENSURE 00 to three Medica l ACTIVE HIGH bottles Branc h PROTEIN) daily liquid Food Yes [id number] 1 bottle Unive rs Supplement, 03-24 with ity of Lactose-[place] 00:00: meals, [place] (ENSURE 00 to three Medica l ACTIVE HIGH bottles Branc h PROTEIN) daily liquid Food Yes [id number] 1 bottle Unive rs Supplement, 03-24 with ity of Lactose-[place] 00:00: meals, up [place] (ENSURE 00 to three Medica l ACTIVE HIGH bottles Branc h PROTEIN) daily liquid Food Yes [id number] 1 bottle Unive rs Supplement, 03-24 with ity of Lactose-[place] 00:00: meals, up [place] (ENSURE 00 to three Medica l ACTIVE HIGH bottles Branc h PROTEIN) daily liquid Food Yes [id number] 1 bottle Unive rs Supplement, 03-24 with ity of Lactose-[place] 00:00: meals, [place] (ENSURE 00 to three Medica l ACTIVE HIGH bottles Branc h PROTEIN) daily liquid mirtazapine Yes [id number] 15mg Take 1 Univers (REMERON) 03-22 tablet by ity o f 15 mg 00:00: mouth at [place] tablet 00 bedtime. [facility] 0.9% 2019- 2019- No 1000mL at 999 Uni vers (NS) bolus - 09-04 mL/hr, ity of infusion 18:45: 22:01 1,000 mL, [place] 1,000 mL 00 :00 IV Medical Infusion, Branch ONCE, 1 dose, Mon03/20/19 at 1345, KATARINA omeprazole 2019- Yes 20mg Take 20 mg U nivers 20 mg 9-04 by mouth ity of capsule 17:46: daily. [place] [address] Medical Branch FLUoxetine 2019- Yes 20mg Take 20 mg U nivers 20 mg 9-04 by mouth ity of capsule 17:46: daily. [place] [address] Medical Branch rosuvastati 2018- Yes 40mg Take 40 mg Univers n 40 mg 9-04 by mouth ity of tablet 17:46: at [place] [address] bedtime. Medical Branch amLODIPine Yes 5mg Take 5 mg Un tracee 5 mg tablet 9-04 by mouth ity of 17:46: daily. [place] [address] Medical Branch Miscellaneo Yes [id number] Needs [facility] -04 overnight ity of Supply Misc 17:46: pulse ox. T ondina 23 Has Medical shallow Branch breathing at night. Required O2 at night in the past. Has O2 at home but only supposed to use for daytime. Please check overnight pulse ox WITHOUT oxygen use overnight. omeprazole 2018- Yes 20mg Take 20 mg U nivers 20 mg 9-04 by mouth ity of capsule 17:46: daily. [place] [address] Medical Branch FLUoxetine 2019- Yes 20mg Take 20 mg U nivers 20 mg 9-04 by mouth ity of capsule 17:46: daily. [place] [address] Medical Branch rosuvastati Yes 40mg Take 40 mg Univers n 40 mg 9-04 by mouth ity of tablet 17:46: at [place] [address] bedtime. Medical Branch amLODIPine 2019- Yes 5mg Take 5 mg Un tracee 5 mg tablet 9-04 by mouth ity of 17:46: daily. [place] [address] Medical Branch Miscellaneo Yes [id number] Needs [facility] -04 overnight ity of Supply Misc 17:46: pulse ox. T exnaomy 23 Has Medical shallow Branch breathing at night. Required O2 at night in the past. Has O2 at home but only supposed to use for daytime. Please check overnight pulse ox WITHOUT oxygen use overnight. omeprazole 2019- Yes 20mg Take 20 mg U nivers 20 mg 9-04 by mouth ity of capsule 17:46: daily. [place] [address] Medical Branch FLUoxetine 2019-0 Yes 20mg Take 20 mg U nivers 20 mg 9-04 by mouth ity of capsule 17:46: daily. [place] [address] Medical Branch rosuvastati Yes 40mg Take 40 mg Univers n 40 mg 9-04 by mouth ity of tablet 17:46: at [place] [address] bedtime. Medical Branch amLODIPine 2019 Yes 5mg Take 5 mg Un tracee 5 mg tablet 9-04 by mouth ity of 17:46: daily. [place] [address] Medical Branch Miscellaneo Yes [id number] Needs [facility] 9-04 overnight ity of Supply Misc 17:46: [...] by mouth ity of capsule 17:46: daily. [place] [address] Medical Branch FLUoxetine Yes 20mg Take 20 mg U nivers 20 mg 9-04 by mouth ity of capsule 17:46: daily. [place] [address] Medical [place] rosuvastati Yes 40mg Take 40 mg Univers n 40 mg 9-04 by mouth ity of tablet 17:46: at [place] [address] bedtime. Medical Branch amLODIPine 2018- Yes 5mg Take 5 mg Un tracee 5 mg tablet 9-04 by mouth ity of 17:46: daily. [place] [address] Medical Branch Miscellaneo Yes [id number] Needs [facility] 9-04 overnight ity of Supply Misc 17:46: [...] by mouth ity of capsule 17:46: daily. [place] [address] Medical Branch FLUoxetine Yes 20mg Take 20 mg U nivers 20 mg 9-04 by mouth ity of capsule 17:46: daily. [place] [address] Medical Branch rosuvastati 2019- Yes 40mg Take 40 mg Univers n 40 mg 9-04 by mouth ity of tablet 17:46: at [place] [address] bedtime. Medical Branch amLODIPine 2019-0 Yes 5mg Take 5 mg Un tracee 5 mg tablet 9-04 by mouth ity of 17:46: daily. [place] [address] Medical Branch Miscellaneo 2018- Yes [id number] Needs [facility] 9-04 overnight ity of Supply Mis 17:46: pulse ox. Leelee Elizabeth Has Medical shallow Branch breathing at night. Required O2 at night in the past. Has O2 at home but only supposed to use for daytime. Please check overnight pulse ox WITHOUT oxygen use overnight. omeprazole 2018-0 Yes 20mg Take 20 mg U nivers 20 mg 9-04 by mouth ity of capsule 17:46: daily. [place] [address] Medical Branch FLUoxetine 0 Yes 20mg Take 20 mg U nivers 20 mg 9-04 by mouth ity of capsule 17:46: daily. [place] [address] Medical Branch rosuvastati Yes 40mg Take 40 mg Univers n 40 mg 9-04 by mouth ity of tablet 17:46: at [place] [address] bedtime. Medical Branch amLODIPine 2018-0 Yes 5mg Take 5 mg Un tracee 5 mg tablet 9-04 by mouth ity of 17:46: daily. [place] [address] Medical Branch Miscellaneo Yes [id number] Needs [facility] 9-04 overnight ity of Supply Mis 17:46: [...] by mouth ity of capsule 17:46: daily. [place] [address] Medical Branch FLUoxetine 2019-0 Yes 20mg Take 20 mg U nivers 20 mg 9-04 by mouth ity of capsule 17:46: daily. [place] [address] Medical Branch rosuvastati 2019-0 Yes 40mg Take 40 mg Univers n 40 mg 9-04 by mouth ity of tablet 17:46: at [place] [address] bedtime. Medical Branch amLODIPine 2019-0 Yes 5mg Take 5 mg Un tracee 5 mg tablet 9-04 by mouth ity of 17:46: daily. [place] [address] Medical Branch Miscellaneo 2019- Yes [id number] Needs [facility] 9-04 overnight ity of Supply Misc 17:46: [...] by mouth ity of capsule 17:46: daily. [place] [address] Medical Branch FLUoxetine 2019-0 Yes 20mg Take 20 mg U nivers 20 mg 9-04 by mouth ity of capsule 17:46: daily. [place] [address] Medical Branch rosuvastati 2018-0 Yes 40mg Take 40 mg Univers n 40 mg 9-04 by mouth ity of tablet 17:46: at [place] [address] bedtime. Medical Branch amLODIPine 2019-0 Yes 5mg Take 5 mg Un tracee 5 mg tablet 9-04 by mouth ity of 17:46: daily. [place] [address] Medical Branch Miscellaneo 2018- Yes [id number] Needs [facility] 9-04 overnight ity of Supply Misc 17:46: [...] by mouth ity of capsule 17:46: daily. [place] [address] Medical Branch FLUoxetine 2019-0 Yes 20mg Take 20 mg U nivers 20 mg 9-04 by mouth ity of capsule 17:46: daily. [place] [address] Medical Branch rosuvastati 2019-0 Yes 40mg Take 40 mg Univers n 40 mg 9-04 by mouth ity of tablet 17:46: at [place] [address] bedtime. Medical Branch amLODIPine 2019-0 Yes 5mg Take 5 mg Un tracee 5 mg tablet 9-04 by mouth ity of 17:46: daily. [place] [address] Medical Branch Miscellaneo 2018- Yes [id number] Needs [facility] 9-04 overnight ity of Supply Misc 17:46: pulse ox. [place] 23 Has Medical shallow Branch breathing at night. Required O2 at night in the past. Has O2 at home but only supposed to use for daytime. Please check overnight pulse ox WITHOUT oxygen use overnight. omeprazole 2019-0 Yes 20mg Take 20 mg U nivers 20 mg 9-04 by mouth ity of capsule 17:46: daily. [place] [address] Medical Branch FLUoxetine 2019-0 Yes 20mg Take 20 mg U nivers 20 mg 9-04 by mouth ity of capsule 17:46: daily. [place] [address] Medical Branch rosuvastati 2019-0 Yes 40mg Take 40 mg Univers n 40 mg 9-04 by mouth ity of tablet 17:46: at [place] [address] bedtime. Medical Branch amLODIPine 2019-0 Yes 5mg Take 5 mg Un tracee 5 mg tablet 9-04 by mouth ity of 17:46: daily. [place] [address] Medical Branch Miscellaneo 2018- Yes [id number] Needs [facility] 9-04 overnight ity of Supply Misc 17:46: [...] by mouth ity of capsule 17:46: daily. [place] [address] Medical Branch FLUoxetine 2018-0 Yes 20mg Take 20 mg U nivers 20 mg 9-04 by mouth ity of capsule 17:46: daily. [place] [address] Medical Branch rosuvastati 2019- Yes 40mg Take 40 mg Univers n 40 mg 9-04 by mouth ity of tablet 17:46: at [place] [address] bedtime. Medical Branch amLODIPine 2019-0 Yes 5mg Take 5 mg Un tracee 5 mg tablet 9-04 by mouth ity of 17:46: daily. [place] [address] Medical Branch Miscellaneo 2019- Yes [id number] Needs [facility] 9-04 overnight ity of Supply Misc 17:46: [...] by mouth ity of capsule 17:46: daily. [place] [address] Medical Branch FLUoxetine Yes 20mg Take 20 mg U nivers 20 mg 03-20 by mouth ity of capsule 17:46: daily. [place] [address] Medical Branch rosuvastati Yes 40mg Take 40 mg Univers n 40 mg 03-20 by mouth ity of tablet 17:46: at [place] [address] bedtime. Medical Branch amLODIPine Yes 5mg Take 5 mg Un tracee 5 mg tablet 03-20 by mouth ity of 17:46: daily. [place] [address] Medical Branch Miscellaneo Yes [id number] Needs Univers [facility] Medical 03-20 overnight ity of Supply Misc 17:46: pulse ox. T exnaomy 23 Has Medical shallow Branch breathing at night. Required O2 at night in the past. Has O2 at home but only supposed to use for daytime. Please check overnight pulse ox WITHOUT oxygen use overnight. ciprofloxac 2019- No [id number] 500mg Take 1 Univers in HCl 500 03-06 tablet by ity of mg tablet 00:00: 04:59 mouth [place] 00 :00 every 12 Medical (twelve) Branch hours for 10 days. Saccharomyc 2019- No [id number] 250mg Take 1 Univers es 03-06 capsule by ity of boulardii 00:00: 04:59 [place] 250 [place] 00 :00 (two) Medical capsule times Branch daily for 10 days. ciprofloxac 2019- No [id number] 500mg Take 1 Univers in HCl 500 03-06 tablet by ity of mg tablet 00:00: 04:59 mouth [place] 00 :00 every 12 Medical (twelve) Branch hours for 10 days. Saccharomyc 2019- No [id number] 250mg Take 1 Univers es 03-06 capsule by ity of boulardii 00:00: 04:59 [place] 250 mg 00 :00 (two) Medical capsule times Branch daily for 10 days. ciprofloxac 2019- No [id number] 500mg Take 1 Univers in HCl 500 03-06 tablet by ity of mg tablet 00:00: 04:59 mouth [place] 00 :00 every 12 Medical (twelve) Branch hours for 10 days. Saccharomyc 2019- No [id number] 250mg Take 1 Univers es 03-06- capsule by ity of boulardii 00:00: 04:59 [place] 250 mg 00 :00 (two) Medical capsule times Branch daily for 10 days. phenazopyri 2019- No [id number] 200mg Take 2 Univers dine - 08-25 tablets by ity of (PYRIDIUM) 00:00: 04:59 mouth 3 [place] 100 mg 00 :00 (three) Medical tablet times Branch daily for 3 days. phenazopyri 2019- No [id number] 200mg Take 2 Univers dine 8- 08-25 tablets by ity of (PYRIDIUM) 00:00: 04:59 mouth 3 [place] 100 mg 00 :00 (three) Medical tablet times Branch daily for 3 days. memantine 2019- No 5mg Take 5 mg Un tracee (NAMENDA) 5 8-11 08-10 by mouth ity of mg tablet 04:00: 00:00 daily. [place] 37 :00 [facility] memantine 2019- No 5mg Take 5 mg Un tracee (NAMENDA) 5 8-11 08-10 by mouth ity of mg tablet 04:00: 00:00 daily. [place] 37 :00 [facility] memantine 2019- No 5mg Take 5 mg Un tracee (NAMENDA) 5 8-11 08-10 by mouth ity of mg tablet 04:00: 00:00 daily. [place] 37 :00 [facility] memantine 2019- No 5mg Take 5 mg Un tracee (NAMENDA) 5 8-11 08-10 by mouth ity of mg tablet 04:00: 00:00 daily. [place] 37 :00 [facility] omeprazole Yes 20mg Take 20 mg U nivers 20 mg 8-09 by mouth ity of capsule 19:59: daily. [address] FLUoxetine 0 Yes 20mg Take 20 mg U nivers 20 mg 8-09 by mouth ity of capsule 19:59: daily. [address] rosuvastati 2018-0 Yes 40mg Take 40 mg Univers n 40 mg 8-09 by mouth ity of tablet 19:59: at [place] [address] bedtime. Medical Branch amLODIPine 0 Yes 5mg Take 5 mg Un tracee 5 mg tablet 8-09 by mouth ity of 19:59: daily. [place] [address] Medical Branch Miscellaneo 2019- Yes [id number] Needs [facility] 8-09 overnight ity of Supply Misc 19:59: [...] by mouth ity of capsule 19:59: daily. [place] [address] Medical Branch FLUoxetine 2019-0 Yes 20mg Take 20 mg U nivers 20 mg 8-09 by mouth ity of capsule 19:59: daily. [place] [address] Medical Branch rosuvastati Yes 40mg Take 40 mg Univers n 40 mg 8-09 by mouth ity of tablet 19:59: at [place] [address] bedtime. Medical Branch amLODIPine 2019- Yes 5mg Take 5 mg Un tracee 5 mg tablet 8-09 by mouth ity of 19:59: daily. [place] [address] Medical Branch Miscellaneo Yes [id number] Needs [facility] 8-09 overnight ity of Supply Misc 19:59: [...] by mouth ity of capsule 19:59: daily. [place] [address] Medical Branch FLUoxetine 2019-0 Yes 20mg Take 20 mg U nivers 20 mg 8-09 by mouth ity of capsule 19:59: daily. [place] [address] Medical Branch rosuvastati 2019-0 Yes 40mg Take 40 mg Univers n 40 mg 8-09 by mouth ity of tablet 19:59: at [place] [address] bedtime. Medical Branch amLODIPine 2019-0 Yes 5mg Take 5 mg Un tracee 5 mg tablet 8-09 by mouth ity of 19:59: daily. [place] [address] Medical Branch Miscellaneo 2019- Yes [id number] Needs [facility] 8-09 overnight ity of Supply Misc 19:59: pulse ox. [place] Has Medical shallow Branch breathing at night. Required O2 at night in the past. Has O2 at home but only supposed to use for daytime. Please check overnight pulse ox WITHOUT oxygen use overnight. omeprazole 2019-0 Yes 20mg Take 20 mg U nivers 20 mg 8-09 by mouth ity of capsule 19:59: daily. [place] [address] Medical Branch FLUoxetine 2019-0 Yes 20mg Take 20 mg U nivers 20 mg 8-09 by mouth ity of capsule 19:59: daily. [place] [address] Medical Branch rosuvastati 2019-0 Yes 40mg Take 40 mg Univers n 40 mg 8-09 by mouth ity of tablet 19:59: at [place] [address] bedtime. Medical Branch amLODIPine 2019-0 Yes 5mg Take 5 mg Un tracee 5 mg tablet 8-09 by mouth ity of 19:59: daily. [place] [address] Medical Branch Miscellaneo 2019- Yes [id number] Needs [facility] 8-09 overnight ity of Supply Misc 19:59: [...] by mouth ity of capsule 19:59: daily. [place] [address] Medical Branch FLUoxetine 2018-0 Yes 20mg Take 20 mg U nivers 20 mg 8-09 by mouth ity of capsule 19:59: daily. [place] [address] Medical Branch rosuvastati 2019- Yes 40mg Take 40 mg Univers n 40 mg 8-09 by mouth ity of tablet 19:59: at [place] [address] bedtime. Medical Branch amLODIPine 2019-0 Yes 5mg Take 5 mg Un tracee 5 mg tablet 8-09 by mouth ity of 19:59: daily. [place] [address] Medical Branch Miscellaneo 2019-0 Yes [id number] Needs [facility] 8-09 overnight ity of Supply Misc 19:59: [...] by mouth ity of capsule 19:59: daily. [place] [address] Medical Branch FLUoxetine 2019- Yes 20mg Take 20 mg U nivers 20 mg 8-09 by mouth ity of capsule 19:59: daily. [place] [address] Medical Branch rosuvastati 2019- Yes 40mg Take 40 mg Univers n 40 mg 8-09 by mouth ity of tablet 19:59: at [place] [address] bedtime. Medical Branch amLODIPine 2019- Yes 5mg Take 5 mg Un tracee 5 mg tablet 8-09 by mouth ity of 19:59: daily. [place] [address] Medical Branch Miscellaneo 2019 Yes [id number] Needs [facility] 8-09 overnight ity of Supply Misc 19:59: [...] by mouth ity of capsule 19:59: daily. [place] [address] Medical Branch FLUoxetine Yes 20mg Take 20 mg U nivers 20 mg 8-09 by mouth ity of capsule 19:59: daily. [place] [address] Medical Branch rosuvastati Yes 40mg Take 40 mg Univers n 40 mg 8-09 by mouth ity of tablet 19:59: at [place] [address] bedtime. Medical Branch amLODIPine Yes 5mg Take 5 mg Un tracee 5 mg tablet 8-09 by mouth ity of 19:59: daily. [place] [address] Medical Branch Miscellaneo 2018- Yes [id number] Needs [facility] 8-09 overnight ity of Supply Misc 19:59: [...] by mouth ity of capsule 19:59: daily. [place] [address] Medical Branch FLUoxetine 2019-0 Yes 20mg Take 20 mg U nivers 20 mg 8-09 by mouth ity of capsule 19:59: daily. [place] [address] Medical Branch rosuvastati 2019-0 Yes 40mg Take 40 mg Univers n 40 mg 8-09 by mouth ity of tablet 19:59: at [place] [address] bedtime. Medical Branch amLODIPine 2019-0 Yes 5mg Take 5 mg Un tracee 5 mg tablet 8-09 by mouth ity of 19:59: daily. [place] [address] Medical Branch Miscellaneo 2019-0 Yes [id number] Needs [facility] Medical 8-09 overnight ity of Supply [facility] [place] 19:59: pulse ox. T ondina Lieberman Has Medical shallow Branch breathing at night. Required O2 at night in the past. Has O2 at home but only supposed to use for daytime. Please check overnight pulse ox WITHOUT oxygen use overnight. ondansetron 2019-0 Yes [id number] 4mg Take 1 Univers 4 mg tablet 8-09 tablet by ity of 00:00: mouth [place] 00 every 6 Medical (six) Branch hours as needed for Nausea and Vomiting (N/V). ondansetron 2019-0 Yes [id number] 4mg Take 1 [facility] 4 mg tablet 8-09 tablet by ity of 00:00: mouth [place] 00 every 6 Medical (six) Branch hours as needed for Nausea and Vomiting (N/V). ondansetron 2019-0 Yes [id number] 4mg Take 1 [facility] 4 mg tablet 8-09 tablet by ity of 00:00: mouth [place] 00 every 6 Medical (six) Branch hours as needed for Nausea and Vomiting (N/V). ondansetron 2019-0 Yes [id number] 4mg Take 1 [facility] 4 mg tablet 8-09 tablet by ity of 00:00: mouth [place] 00 every 6 Medical (six) Branch hours as needed for Nausea and Vomiting (N/V). ondansetron 2019-0 Yes [id number] 4mg Take 1 [facility] 4 mg tablet 8-09 tablet by ity of 00:00: mouth [place] 00 every 6 Medical (six) Branch hours as needed for Nausea and Vomiting (N/V). ondansetron 2019-0 Yes [id number] 4mg Take 1 [facility] 4 mg tablet 8-09 tablet by ity of 00:00: mouth [place] 00 every 6 Medical (six) Branch hours as needed for Nausea and Vomiting (N/V). ondansetron 2019-0 Yes [id number] 4mg Take 1 [facility] 4 mg tablet 8-09 tablet by ity of 00:00: mouth [place] 00 every 6 Medical (six) Branch hours as needed for Nausea and Vomiting (N/V). ondansetron 2019-0 Yes [id number] 4mg Take 1 [facility] 4 mg tablet 8-09 tablet by ity of 00:00: mouth [place] 00 every 6 Medical (six) Branch hours as needed for Nausea and Vomiting (N/V). ondansetron 2019-0 Yes [id number] 4mg Take 1 [facility] 4 mg tablet 8-09 tablet by ity of 00:00: mouth [place] 00 every 6 Medical (six) Branch hours as needed for Nausea and Vomiting (N/V). ondansetron 2019-0 Yes [id number] 4mg Take 1 [facility] 4 mg tablet 8-09 tablet by ity of 00:00: mouth [place] 00 every 6 Medical (six) Branch hours as needed for Nausea and Vomiting (N/V). ondansetron 2019-0 Yes [id number] 4mg Take 1 [facility] 4 mg tablet 8-09 tablet by ity of 00:00: mouth [place] 00 every 6 Medical (six) Branch hours as needed for Nausea and Vomiting (N/V). ondansetron 2019-0 Yes [id number] 4mg Take 1 [facility] 4 mg tablet 8-09 tablet by ity of 00:00: mouth [place] 00 every 6 Medical (six) Branch hours as needed for Nausea and Vomiting (N/V). ondansetron 2019-0 Yes [id number] 4mg Take 1 [facility] 4 mg tablet 8-09 tablet by ity of 00:00: mouth [place] 00 every 6 Medical (six) Branch hours as needed for Nausea and Vomiting (N/V). ondansetron 2019-0 Yes [id number] 4mg Take 1 [facility] 4 mg tablet 8-09 tablet by ity of 00:00: mouth [place] 00 every 6 Medical (six) Branch hours as needed for Nausea and Vomiting (N/V). ondansetron 2019-0 Yes [id number] 4mg Take 1 [facility] 4 mg tablet 8-09 tablet by ity of 00:00: mouth [place] 00 every 6 Medical (six) Branch hours as needed for Nausea and Vomiting (N/V). ondansetron 2019-0 Yes [id number] 4mg Take 1 [facility] 4 mg tablet 8-09 tablet by ity of 00:00: mouth [place] 00 every 6 Medical (six) Branch hours as needed for Nausea and Vomiting (N/V). ondansetron 2019- Yes [id number] 4mg Take 1 [facility] 4 mg tablet 8-09 tablet by ity of 00:00: mouth [place] 00 every 6 Medical (six) Branch hours as needed for Nausea and Vomiting (N/V). ondansetron 2018- Yes [id number] 4mg Take 1 [facility] 4 mg tablet 8-09 tablet by ity of 00:00: mouth [place] 00 every 6 Medical (six) Branch hours as needed for Nausea and Vomiting (N/V). omeprazole Yes 20mg Take 20 mg U nivers 20 mg 5-09 by mouth ity of capsule 20:43: daily. [place] [address] Medical Branch FLUoxetine 0 Yes 20mg Take 20 mg U nivers 20 mg 5-09 by mouth ity of capsule 20:43: daily. [place] [address] Medical Branch rosuvastati Yes 40mg Take 40 mg Univers n 40 mg 5-09 by mouth ity of tablet 20:43: at [place] [address] bedtime. Medical Branch amLODIPine Yes 5mg Take 5 mg Un tracee 5 mg tablet 5-09 by mouth ity of 20:43: daily. [place] [address] Medical Branch memantine Yes 5mg Take 5 mg Uni vers (NAMENDA) 5 5-09 by mouth ity of mg tablet 20:43: daily. [place] [address] Medical Branch Miscellaneo Yes [id number] Needs [facility] 5-09 overnight ity of Supply [facility] [place], [place] 20:43: pulse ox. [facility] 06 Has Medical [facility] Branch breathing at night. Required O2 at night in the past. Has O2 at home but only supposed to use for daytime. Please check overnight pulse ox WITHOUT oxygen use overnight. traZODONE 2018- Yes [id number] 100mg Take 1 U nivers 100 mg 3-27 tablet by ity of tablet 00:00: mouth at [place] [address] bedtime. Medical Branch traZODONE 2019-0 Yes [id number] 100mg Take 1 U nivers 100 mg 3-27 tablet by ity of tablet 00:00: mouth at [place] [address] bedtime. Medical Branch traZODONE 2019-0 Yes [id number] 100mg Take 1 U nivers 100 mg 3-27 tablet by ity of tablet 00:00: mouth at [place] [address] bedtime. Medical Branch traZODONE 2018-0 Yes [id number] 100mg Take 1 U nivers 100 mg 3-27 tablet by ity of tablet 00:00: mouth at [place] [address] bedtime. Medical Branch traZODONE 2018-0 Yes [id number] 100mg Take 1 U nivers 100 mg 3-27 tablet by ity of tablet 00:00: mouth at [place] [address] bedtime. Medical Branch traZODONE 2018-0 Yes [id number] 100mg Take 1 U nivers 100 mg 3-27 tablet by ity of tablet 00:00: mouth at [place] [address] bedtime. Medical Branch traZODONE 2018-0 Yes [id number] 100mg Take 1 U nivers 100 mg 3-27 tablet by ity of tablet 00:00: mouth at [place] [address] bedtime. Medical Branch traZODONE 2018-0 Yes [id number] 100mg Take 1 U nivers 100 mg 3-27 tablet by ity of tablet 00:00: mouth at [place] [address] bedtime. Medical Branch traZODONE 2018-0 Yes [id number] 100mg Take 1 U nivers 100 mg 3-27 tablet by ity of tablet 00:00: mouth at [place] [address] bedtime. Medical Branch traZODONE 2018-0 Yes [id number] 100mg Take 1 U nivers 100 mg 3-27 tablet by ity of tablet 00:00: mouth at [place] [address] bedtime. Medical Branch traZODONE 2018-0 Yes [id number] 100mg Take 1 U nivers 100 mg 3-27 tablet by ity of tablet 00:00: mouth at [place] [address] bedtime. Medical Branch traZODONE 2018-0 Yes [id number] 100mg Take 1 U nivers 100 mg 3-27 tablet by ity of tablet 00:00: mouth at [place] [address] bedtime. Medical Branch traZODONE 2018-0 Yes [id number] 100mg Take 1 U nivers 100 mg 3-27 tablet by ity of tablet 00:00: mouth at [place] [address] bedtime. Medical Branch traZODONE 2019-0 Yes [id number] 100mg Take 1 U nivers 100 mg 3-27 tablet by ity of tablet 00:00: mouth at [place] [address] bedtime. Medical Branch traZODONE 2018-0 Yes [id number] 100mg Take 1 U nivers 100 mg 3-27 tablet by ity of tablet 00:00: mouth at [place] [address] bedtime. Medical Branch traZODONE 2018-0 Yes [id number] 100mg Take 1 U nivers 100 mg 3-27 tablet by ity of tablet 00:00: mouth at [place] [address] bedtime. [facility] traZODONE 2019-0 Yes [id number] 100mg Take 1 U nivers 100 mg 3-27 tablet by ity of tablet 00:00: mouth at [place] [address] bedtime. [facility] traZODONE 2019-0 Yes [id number] 100mg Take 1 U nivers 100 mg 3-27 tablet by ity of tablet 00:00: mouth at [place] [address] bedtime. [facility] traZODONE 2019-0 Yes [id number] 100mg Take 1 U nivers 100 mg 3-27 tablet by ity of tablet 00:00: mouth at [place] [address] bedtime. [facility] traZODONE 2018-0 Yes [id number] 100mg Take 1 U nivers 100 mg 3-27 tablet by ity of tablet 00:00: mouth at [place] [address] bedtime. [facility] traZODONE 2018-0 Yes [id number] 100mg Take 1 U nivers 100 mg 3-27 tablet by ity of tablet 00:00: mouth at [place] [address] bedtime. [facility] dexlansopra 2019-0 Yes 30mg QD Take 1 [facility] zole 2-[address] (DEXILANT) 00:00: (30 mg Hospi ta 30 mg 00 total) by l capsule mouth daily. dexlansopra 2019-0 Yes 30mg QD Take 1 [facility] 2-[address] (DEXILANT) 00:00: (30 mg Hospi ta 30 mg 00 total) by l capsule mouth daily. dexlansopra 2019-0 Yes 30mg QD Take 1 [facility] 2-[address] (DEXILANT) 00:00: (30 mg Hospi ta 30 mg 00 total) by l capsule mouth daily. FLUoxetine 2017-07 Yes 60mg QD Take 3 [facility] (PROzac) 20 2-[address] [facility] tablet 00:00: (60 mg Hospit a 00 total) by l mouth daily. FLUoxetine 2017- Yes 60mg QD Take 3 [facility] (PROzac) 20 2-[address] [facility] tablet 00:00: (60 mg Hospit a 00 total) by l mouth daily. FLUoxetine 2017-07 Yes 60mg QD Take 3 [facility] (PROzac) 20 2-[address] [facility] tablet 00:00: (60 mg Hospit a 00 total) by l mouth daily. Immunizations Ordered Immunization Filled Immunization Date Status Commen ts Source Name Name MILO COVID-19 MRNA 2020-08-13 Completed [facility] VACCINATION 00:00:00 [facility] PFIZER COVID-19 MRNA 2020-08-13 Completed [facility] VACCINATION 00:00:00 [facility] PFIZER COVID-19 MRNA 2020-08-13 Completed [facility]ist VACCINATION 00:00:00 [facility] PFIZER COVID-19 MRNA 2020-07-23 Completed [facility] odist VACCINATION 00:00:00 [facility] PFIZER COVID-19 MRNA 2020-07-23 Completed [facility] odist VACCINATION 00:00:00 [facility] PFIZER COVID-19 MRNA 2020-07-23 Completed Meth odist VACCINATION 00:00:00 [facility] Influenza Virus 2018-03-07 Completed Universit y of Vaccine (3+ yrs) 00:00:00 [facility] Influenza Virus 2018-03-07 Completed Universit y of Vaccine (3+ yrs) 00:00:00 [facility] Influenza Virus 2018-03-07 Completed Universit y of Vaccine (3+ yrs) 00:00:00 [facility] Influenza Virus 2018-03-07 Completed Universit y of Vaccine (3+ yrs) 00:00:00 [facility] Influenza Virus 2018-03-07 Completed Universit y of Vaccine (3+ yrs) 00:00:00 [facility] Influenza Virus 2018-03-07 Completed Universit y of Vaccine (3+ yrs) 00:00:00 [facility] Influenza Virus 2018-03-07 Completed Universit y of Vaccine (3+ yrs) 00:00:00 [facility] Influenza Virus 2018-03-07 Completed Universit y of Vaccine (3+ yrs) 00:00:00 [facility] Influenza Virus 2018-03-07 Completed Universit y of Vaccine (3+ yrs) 00:00:00 [facility] Influenza Virus 2018-03-07 Completed Universit y of Vaccine (3+ yrs) 00:00:00 [facility] Influenza Virus 2018-03-07 Completed Universit y of Vaccine (3+ yrs) 00:00:00 [facility] Influenza Virus 2018-03-07 Completed Universit y of Vaccine (3+ yrs) 00:00:00 [facility] Influenza Virus 2018-03-07 Completed Universit y of Vaccine (3+ yrs) 00:00:00 [facility] Influenza Virus 2018-03-07 Completed Universit y of Vaccine (3+ yrs) 00:00:00 [facility] Influenza Virus 2018-03-07 Completed Universit y of Vaccine (3+ yrs) 00:00:00 [facility] Influenza Virus 2018-03-07 Completed Universit y of Vaccine (3+ yrs) 00:00:00 [facility] Influenza Virus 2018-03-07 Completed Universit y of Vaccine (3+ yrs) 00:00:00 [facility] Influenza Virus 2018-03-07 Completed Universit y of Vaccine (3+ yrs) 00:00:00 [facility] Influenza Virus 2018-03-07 Completed Universit y of Vaccine (3+ yrs) 00:00:00 [facility] Influenza Virus 2018-03-07 Completed Universit y of Vaccine (3+ yrs) 00:00:00 [facility] Influenza Virus 2018-03-07 Completed Universit y of Vaccine (3+ yrs) 00:00:00 [facility] Influenza Trivalent 2018-03-07 Completed [facility] dist 00:00:00 Hospital Influenza Trivalent 2018-03-07 Completed [facility] 00:00:00 Hospital Influenza Trivalent 2018-03-07 Completed Metho dist 00:00:00 [facility] Influenza High Dose 2017-06-02 Completed Unive rsity of 00:00:00 [facility] Influenza High Dose 2017-06-02 Completed Unive rsity of 00:00:00 [facility] Influenza High Dose 2017-06-02 Completed Unive rsity of 00:00:00 [facility] Influenza High Dose 2017-06-02 Completed Unive rsity of 00:00:00 [facility] Influenza High Dose 2017-06-02 Completed Unive rsity of 00:00:00 [facility] Influenza High Dose 2017-06-02 Completed Unive rsity of 00:00:00 [facility] Influenza High Dose 2017-06-02 Completed Unive rsity of 00:00:00 [facility] Influenza High Dose 2017-06-02 Completed Unive rsity of 00:00:00 [facility] Influenza High Dose 2017-06-02 Completed Unive rsity of 00:00:00 [facility] Influenza High Dose 2017-06-02 Completed Unive rsity of 00:00:00 [facility] Influenza High Dose 2017-06-02 Completed Unive rsity of 00:00:00 [facility] Influenza High Dose 2017-06-02 Completed Unive rsity of 00:00:00 [facility] Influenza High Dose 2017-06-02 Completed Unive rsity of 00:00:00 [facility] Influenza High Dose 2017-06-02 Completed Unive rsity of 00:00:00 [facility] Influenza High Dose 2017-06-02 Completed Unive rsity of 00:00:00 [facility] Influenza High Dose 2017-06-02 Completed Unive rsity of 00:00:00 [facility] Influenza High Dose 2017-06-02 Completed Unive rsity of 00:00:00 [facility] Influenza High Dose 2017-06-02 Completed Unive rsity of 00:00:00 [facility] Influenza High Dose 2017-06-02 Completed Unive rsity of 00:00:00 [facility] Influenza High Dose 2017-06-02 Completed Unive rsity of 00:00:00 [facility] Influenza High Dose 2017-06-02 Completed Unive rsity of 00:00:00 [facility] FLUZONE HIGH-DOSE PF 2017-06-02 Completed Meth odist 00:00:00 [facility] FLUZONE HIGH-DOSE PF 2017-06-02 Completed Meth odist 00:00:00 [facility] FLUZONE HIGH-DOSE PF 2017-06-02 Completed Meth odist 00:00:00 Hospital Pneumococcal 13 2015-10-22 Completed Universit y of [...] Universit y of Conjugate, PCV13 00:00:00 [place] [facility] (Prevnar 13) Branch Pneumococcal 13 2015-10-22 [...] [place] [facility] (Prevnar 13) Branch Pneumococcal 2015-10-22 Completed [facility] Conjugate 13-Valent 00:00:00 Hospi olive Pneumococcal 2015-10-22 Completed [facility] Conjugate 13-Valent 00:00:00 [facility]pi olive Pneumococcal 2015-10-22 Completed [facility] Conjugate 13-Valent 00:00:00 [facility]pi olive Tetanus/Diptheria 2011-01-13 Completed Univers ity of 00:00:00 [facility] Tetanus/Diptheria 2011-01-13 Completed Univers ity of 00:00:00 [facility] Tetanus/Diptheria 2011-01-13 Completed Univers ity of 00:00:00 [facility] Tetanus/Diptheria 2011-01-13 Completed Univers ity of 00:00:00 [facility] Tetanus/Diptheria 2011-01-13 Completed Univers ity of 00:00:00 [facility] Tetanus/Diptheria 2011-01-13 Completed Univers ity of 00:00:00 [facility] Tetanus/Diptheria 2011-01-13 Completed Univers ity of 00:00:00 [facility] Tetanus/Diptheria 2011-01-13 Completed Univers ity of 00:00:00 [facility] Tetanus/Diptheria 2011-01-13 Completed Univers ity of 00:00:00 [facility] Tetanus/Diptheria 2011-01-13 Completed Univers ity of 00:00:00 [facility] Tetanus/Diptheria 2011-01-13 Completed Univers ity of 00:00:00 [facility] Tetanus/Diptheria 2011-01-13 Completed Univers ity of 00:00:00 [facility] Tetanus/Diptheria 2011-01-13 Completed Univers ity of 00:00:00 [facility] Tetanus/Diptheria 2011-01-13 Completed Univers ity of 00:00:00 [facility] Tetanus/Diptheria 2011-01-13 Completed Univers ity of 00:00:00 [facility] Tetanus/Diptheria 2011-01-13 Completed Univers ity of 00:00:00 [facility] Tetanus/Diptheria 2011-01-13 Completed Univers ity of 00:00:00 [facility] Tetanus/Diptheria 2011-01-13 Completed Univers ity of 00:00:00 [facility] Tetanus/Diptheria 2011-01-13 Completed Univers ity of 00:00:00 [place] [facility] Tetanus/Diptheria 2011-01-13 Completed Univers ity of 00:00:00 [facility] [place] [facility] Tetanus/Diptheria 2011-01-13 Completed Univers ity of 00:00:00 [facility] [place] [facility] Branch Td 2011-01-13 Completed [facility] 00:[facility] Td 2011-01-13 Completed [facility] 00:[facility] Td 2011-01-13 Completed [facility] 00:[facility] Influenza Virus 2008-04-25 Completed Universit y of Vaccine (3+ yrs) 00:00:00 [facility] dical Branch Pneumococcal 2008-04-25 Completed University o f Polysaccharide, 00:00:00 [place] [facility] PPSV23 (PNEUMOVAX) Branch Influenza Virus 2008-04-25 Completed Universit y of Vaccine (3+ yrs) 00:00:00 [facility] dical Branch Pneumococcal 2008-04-25 Completed University o f Polysaccharide, 00:00:00 [place] [facility] PPSV23 (PNEUMOVAX) Branch Influenza Virus 2008-04-25 Completed Universit y of Vaccine (3+ yrs) 00:00:00 [facility] dical Branch Pneumococcal 2008-04-25 Completed University o f Polysaccharide, 00:00:00 [place] [facility] ical PPSV23 (PNEUMOVAX) Branch Influenza Virus 2008-04-25 Completed Universit y of Vaccine (3+ yrs) 00:00:00 [facility] dical Branch Pneumococcal 2008-04-25 Completed University o f Polysaccharide, 00:00:00 [place] [facility] ical PPSV23 (PNEUMOVAX) Branch Influenza Virus 2008-04-25 Completed Universit y of Vaccine (3+ yrs) 00:00:00 [facility] dical Branch Pneumococcal 2008-04-25 Completed University o f Polysaccharide, 00:00:00 [place] [facility] ical PPSV23 (PNEUMOVAX) Branch Influenza Virus 2008-04-25 Completed Universit y of Vaccine (3+ yrs) 00:00:00 [facility] dical Branch Pneumococcal 2008-04-25 Completed University o f Polysaccharide, 00:00:00 [place] [facility] ical PPSV23 (PNEUMOVAX) Branch Influenza Virus 2008-04-25 Completed Universit y of Vaccine (3+ yrs) 00:00:00 [facility] dical Branch Influenza Virus 2008-04-25 Completed Universit y of Vaccine (3+ yrs) 00:00:00 [place] [facility] Branch Pneumococcal 2008-04-25 Completed University o f Polysaccharide, 00:00:00 [place] [facility] ical PPSV23 (PNEUMOVAX) Branch Pneumococcal 2008-04-25 Completed University o f Polysaccharide, 00:00:00 [place] [facility] PPSV23 (PNEUMOVAX) Branch Influenza Virus 2008-04-25 Completed Universit y [facility] Vaccine (3+ yrs) [facility] 2008[facility]25 Com[facility] University o f Polysaccharide, 00:00:00 [place] Med ical PPSV23 (PNEUMOVAX) Branch Influenza Virus 2008-04-25 Completed Universit y of Vaccine (3+ yrs) 00:00:00 [facility] Branch Pneumococcal 2008-04-25 Completed University o f Polysaccharide, 00:00:00 [place] Med ical PPSV23 (PNEUMOVAX) Branch Influenza Virus 2008-04-25 Completed Universit y of Vaccine (3+ yrs) 00:00:00 [facility] Branch Pneumococcal 2008-04-25 Completed University o f Polysaccharide, 00:00:00 [place] Med ical PPSV23 (PNEUMOVAX) Branch Influenza Virus 2008-04-25 Completed Universit y of Vaccine (3+ yrs) 00:00:00 [facility] Branch Pneumococcal 2008-04-25 Completed University o f Polysaccharide, 00:00:00 [place] Med ical PPSV23 (PNEUMOVAX) Branch Influenza Virus 2008-04-25 Completed Universit y of Vaccine (3+ yrs) 00:00:00 [facility] Branch Pneumococcal 2008-04-25 Completed University o f Polysaccharide, 00:00:00 [place] Med ical PPSV23 (PNEUMOVAX) Branch Influenza Virus 2008-04-25 Completed Universit y of Vaccine (3+ yrs) 00:00:00 [facility] Branch Pneumococcal 2008-04-25 Completed University o f Polysaccharide, 00:00:00 [place] Med ical PPSV23 (PNEUMOVAX) Branch Influenza Virus 2008-04-25 Completed Universit y of Vaccine (3+ yrs) 00:00:00 [facility] Branch Pneumococcal 2008-04-25 Completed University o f Polysaccharide, 00:00:00 [place] [facility] ical PPSV23 (PNEUMOVAX) Branch Influenza Virus 2008-04-25 Completed Universit y of Vaccine (3+ yrs) 00:00:00 [facility] Pneumococcal 2008-04-25 Completed University o f Polysaccharide, 00:00:00 [place] [facility] ical PPSV23 (PNEUMOVAX) Branch Influenza Virus 2008-04-25 Completed Universit y of Vaccine (3+ yrs) 00:00:00 [place] [facility] Pneumococcal 2008-04-25 Completed University o f Polysaccharide, 00:00:00 [place] [facility] PPSV23 (PNEUMOVAX) Branch Influenza Virus 2008-04-25 Completed Universit y of Vaccine (3+ yrs) 00:00:00 [place] [facility] Influenza Virus 2008-04-25 Completed Universit y of Vaccine (3+ yrs) 00:00:00 [place] [facility] Pneumococcal 2008-04-25 Completed University o f Polysaccharide, 00:00:00 [place] [facility] PPSV23 (PNEUMOVAX) Branch Pneumococcal 2008-04-25 Completed University o f Polysaccharide, 00:00:00 [place] [facility] PPSV23 (PNEUMOVAX) Branch Influenza Virus 2008-04-25 Completed Universit y of Vaccine (3+ yrs) 00:00:00 [facility] dical Branch Pneumococcal 2008-04-25 Completed University o f Polysaccharide, 00:00:00 [place] [facility] ical PPSV23 (PNEUMOVAX) Branch Influenza Virus 2008-04-25 Completed Universit y of Vaccine (3+ yrs) 00:00:00 [facility] dical Branch Pneumococcal 2008-04-25 Completed University o f Polysaccharide, 00:00:00 [place] [facility] PPSV23 (PNEUMOVAX) Branch Influenza Trivalent 2008-04-25 Completed [facility] 00:00:00 [facility] Pneumococcal 2008-04-25 Completed [facility] Polysaccharide 00:00:00 [facility] Influenza Trivalent 2008-04-25 Completed [facility] 00:00:00 Hospital Pneumococcal 2008-04-25 Completed [facility] Polysaccharide 00:00:00 [facility] Influenza Trivalent 2008-04-25 Completed [facility] 00:00:00 Hospital Pneumococcal 2008-04-25 Completed [facility] Polysaccharide 00:00:00 Hospital Vital Signs Vital Name Observation Time Observation Value Comments Source Systolic blood 2019-03-20 22:00:00 134 mm[Hg] Univer sity of pressure [facility] Diastolic blood 2019-03-20 22:00:00 53 mm[Hg] Unive rsity of pressure [facility] Heart rate 2019-03-20 22:00:00 67 /min [facility] [place] [facility] Respiratory rate 2019-03-20 22:00:00 16 /min Univ ers[facility] [place] [facility] Oxygen saturation in 2019-03-20 22:00:00 94 /min University of Arterial blood by [facility] Pulse oximetry Branch Body height 2019-03-20 20:05:48 154.9 cm [facility] [place] [facility] Body temperature 2019-03-20 18:43:00 36.72 Radha [facility] [place] [facility] Body weight 2019-03-20 18:43:00 50.803 kg [facility] [place] [facility] BMI 2019-03-20 18:43:00 21.16 kg/m2 [facility] [place] [facility] Systolic blood 2019-03-20 17:43:00 129 mm[Hg] Univer sity of pressure [place] [facility] Diastolic blood 2019-03-20 17:43:00 70 mm[Hg] Unive rsity of pressure [place] [facility] Heart rate 2019-03-20 17:43:00 75 /min [facility] [place] [facility] Body temperature 2019-03-20 17:43:00 36.94 Radha [facility] [place] [facility] Respiratory rate 2019-03-20 17:43:00 18 /min Univ [facility] [place] [facility] Oxygen saturation in 2019-03-20 17:43:00 94 /min University of Arterial blood by [facility] Pulse oximetry Branch Systolic blood 2019-02-22 19:58:00 113 mm[Hg] Univer sity of pressure [place] [facility] Diastolic blood 2019-02-22 19:58:00 68 mm[Hg] Unive rsity of pressure [place] [facility] Heart rate 2019-02-22 19:58:00 90 /min [facility] [place] [facility] Body temperature 2019-02-22 19:58:00 36.61 Radha [facility] [place] [facility] Respiratory rate 2019-02-22 19:58:00 20 /min [facility] [place] [facility] Body height 2019-02-22 19:58:00 160 cm [facility] [place] [facility] Body weight 2019-02-22 19:58:00 53.071 kg [facility] [place] [facility] BMI 2019-02-22 19:58:00 20.73 kg/m2 [facility] [place] [facility] Oxygen saturation in 2019-02-22 19:58:00 96 /min University of Arterial blood by [facility] Pulse oximetry Branch Body weight 2019-03-06 14:31:00 51.529 kg [facility] [place] [facility] BMI 2019-03-06 14:31:00 20.12 kg/m2 [facility] [place] [facility] Oxygen saturation in 2019-03-06 14:31:00 95 /min University of Arterial blood by [facility] Pulse oximetry Branch Systolic blood 2019-03-06 14:31:00 133 mm[Hg] Univer sity of pressure [place] [facility] Diastolic blood 2019-03-06 14:31:00 68 mm[Hg] Unive rsity of pressure [place] [facility] Heart rate 2019-03-06 14:31:00 77 /min Universi ty of [facility] Body temperature 2019-03-06 14:31:00 36.5 Rad[facility] ersity of [place] [facility] [place] Respiratory rate 2019-03-06 14:31:00 18 /min Univ [facility] [place] [facility] [place] Systolic blood 2018-11-22 20:50:00 138 mm[Hg] [facility] Diastolic blood 2018-11-22 20:50:00 67 mm[Hg] [facility] Heart rate 2018-11-22 20:50:00 83 /min [facility] [place] Body temperature 2018-11-22 20:50:00 36.28 [facility] Respiratory rate 2018-11-22 20:50:00 16 /min [facility] Body height 2018-11-22 20:50:00 154.9 cm [facility] Body weight 2018-11-22 20:50:00 53.524 kg [facility] BMI 2018-11-22 20:50:00 22.30 kg/m2 [facility] Oxygen saturation in 2018-11-22 20:50:00 94 /min [facility] of Arterial blood by [facility] Pulse oximetry Branch Procedures Procedure Date / Time Performing Clinician Source Performed ASSIGNMENT OF BENEFITS 2020-07-07 20:24:07 Doctor Unassigned, Un iversity [facility] [place] [facility] URINALYSIS 2019-03-20 22:01:00 Geraldo Lr [place] o [facility] CT ABDOMEN PELVIS WO 2019-03-20 21:20:09 Geraldo Lr [facility] CONTRAST [facility] XR CHEST 1 VW 2019-03-20 19:15:15 Geraldo Lr [facility] LIPASE 2019-03-20 19:14:00 Geraldo Lr [facility] TROPONIN I 2019-03-20 19:14:00 Geraldo Lr [facility] HEPATIC FUNCTION PANEL 2019-03-20 19:14:00 Geraldo Lr [facility] ([id number]) (ALB,T.PRO,BILI Medical Branch T,BU/BC,ALT,AST,ALK PHOS) BASIC METABOLIC PANEL (NA, 2019-03-20 19:14:00 Geraldo Lr [facility] K, CL, CO2, GLUCOSE, BUN, Medica l Branch CREATININE, CA) CBC WITH DIFFERENTIAL 2019-03-20 19:14:00 Geraldo Lr [facility] CONSENT/REFUSAL FOR 2019-03-20 18:24:27 Doctor Unassigned, [facility] DIAGNOSIS AND TREATMENT [place] [facility] NO SHOW OR MISSED 2019-02-22 19:15:06 Doctor Chikis, [facility] APPOINTMENT POLICY [place] [facility] ACKNOWLEDGEMENT DME/SUPPLY JUSTIFICATION 2018-12-04 05:01:00 Doctor Chikis, [facility] Name [facility] Plan of Care Planned Activity Planned Date Details Comments Source Future Scheduled 2022-03-17 [facility] 18:38:30 VACCINES (1 of 3 - 3-dose series) [code = HEPATITIS B VACCINES (1 of 3 - 3-dose series)] Future Scheduled 2022-03-17 SHINGLES [facility]ACCIN[facility] 18:38:30 (2 of 3) [code = SHINGLES VACCINES (2 of 3)] Future Scheduled 2022-03-17 COVID-19 VACCINE (3 [facility] Test 18:38:30 - Booster for Pfizer series) [code = COVID-19 VACCINE (3 - Booster for Pfizer series)] Future Scheduled 2022-03-17 INFLUENZA VACCINE [facility] 18:38:30 [code = INFLUENZA VACCINE] Future Scheduled 2022-02-10 SHINGLES VACCINES [facility] Test 17:52:04 (2 of 3) [code = SHINGLES VACCINES (2 of 3)] Future Scheduled 2022-02-10 COVID-19 VACCINE (3 [facility] Test 17:52:04 - Booster for Pfizer series) [code = COVID-19 VACCINE (3 - Booster for Pfizer series)] Future Scheduled 2022-02-10 INFLUENZA VACCINE [facility] Test 17:52:04 [code = INFLUENZA VACCINE] Future Scheduled 2021-12-01 SHINGLES VACCINES [facility] Test 20:06:05 (2 of 3) [code = SHINGLES VACCINES (2 of 3)] Future Scheduled 2021-12-01 COVID-19 VACCINE (3 Meth [facility] Test 20:06:05 - Booster for Pfizer series) [code = COVID-19 VACCINE (3 - Booster for Pfizer series)] Future Scheduled 2021-12-01 INFLUENZA VACCINE [facility] Test 20:06:05 [code = INFLUENZA VACCINE] Encounters Start End Encounter Admission Attending Care Care Encounter Source Date/Time Date/Time Type Type Clinicians Facility Department ID 2022-01-13 Outpatient [facility]LMLC ST[facility] [id number] Common 14:08:00 [facility] 2021-10-05 Outpatient STLMLC STLMLC [id number] Common 08:53:01 [facility] 2021-08-11 Outpatient STLMLC STLMLC [id number] Common 13:33:04 [facility] 2022-01-20 2022-01-20 ambulatory STLMLC STLMLC [id number] Common 00:00:00 00:00:00 [facility] 2022-01-13 2022-01-13 ambulatory STLMLC STLMLC [id number] Common 00:00:00 00:00:00 [facility] 2020-08-13 2020-08-13 Outpatient [facility] [id number] [place] 00:00:00 00:00:[address] 2020-07-23 2020-07-23 Outpatient [facility] [id number] [place] 00:00:00 00:00:[address] 2020-07-07 2020-07-07 Laboratory Only, Adc Test [facility] 1.2.840. 114 [id number] Univers 14:25:08 14:40:08 Only TheearvinOusmane 350.1.13.10 [facility] [place] 4.2.7.2.686 [facility] [place] [phone] [address] 2020-07-07 2020-07-07 Laboratory Only, [facility] 1.2.840.114 [id number] 14:25:08 14:40:08 Only Test Rochelle [id number] [place] 4.2.7.2.686 [place] [id number] [facility] 2020-07-07 2020-07-07 Outpatient R [facility] [id number] Univers 14:30:00 14:30:00 [id number] ity of [facility] 2020-07-07 2020-07-07 Outpatient R [facility] [id number] Univers 14:30:00 14:30:00 ity of [facility] 2020-07-07 2020-07-07 Telephone Naif [facility] 1.2.840.114 [id number] 00:00:00 00:00:00 Tamia Byrd 350.1.13.10 [place] 4.2.7.2.686 Professio [phone] [address] 2020-07-07 2020-07-07 Orders Doctor [facility] 1.2.840.114 [id number] Univers 00:00:00 00:00:00 Only Unassigned, ALICIA 350.1.13.10 [facility] [place] [facility] 4.2.7.2.686 [place] as [phone] [address] 2020-07-07 2020-07-07 Telephone Naif [facility] 1.2.840.114 [id number] Univers 00:00:00 00:00:00 Tamia Byrd [id number] [facility] [place] 4.2.7.2.686 [facility] [phone] Ar dical [address] 2019-03-22 2019-03-22 Telephone Nasrin [facility] 1.2.840.114 [id number] Univers 00:00:00 00:00:00 Chencho Byrd 350.1.13.10 [place] [phone] Ar dical nal [address] [facility] 2019-03-21 2019-03-21 Pre Visit Disla, [facility] 1.2.840.114 [id number] Univers 00:00:00 00:00:00 Outreach Tamia Byrd [id number] [place] [phone] [facility] [address] [facility] 2019-03-21 2019-03-21 Telephone [facility] 1.2.840.114 [id number] Univers 00:00:00 00:00:00 Chencho Lechuga 350.1.13.10 [place] 4.2.7.2.686 [place] Professio [phone] [facility] [address] [place] [facility] 2019-03-20 2019-03-20 Emergency [facility] [id number] [facility] 13:45:40 17:48:00 Geraldo Byrd 350.1.13.10 [place]2.7.2.686 [place] [phone] [facility] [address] [place] [address] 2019-03-20 2019-03-20 Office [facility] 1.2.840.114 [id number] [facility] 12:31:42 13:16:54 Visit Chencho Byrd 350.1.13.10 [place]2.[place] [phone] [facility] [facility] 2019-02-22 2019-03-11 [facility] 1.2.840.114 [id number] [facility] 14:14:28 07:28:29 Visit Tamia Byrd 350.1.13.10 [place] [phone] [facility] [address] [facility] 2019-03-11 2019-03-11 [facility] 1.2.840.114 [id number] Univers 00:00:00 00:00:00 Tamia Byrd 350.1.13.10 [place] [phone] [facility] [address] [facility] 2019-03-06 2019-03-06 Office Nasrin [facility] 1.2.840.114 [id number] [facility] 09:20:55 10:36:45 Visit Chencho Byrd 350.1.13.10 [place]2.[place] [phone] [facility] 0[address] [facility] 2019-03-05 2019-03-05 Telephone Naif [facility] 1.2.840.114 [id number] Univers 00:00:00 00:00:00 Tamia Byrd 350.1.13.10 [place] [phone] [address] 2019-02-22 2019-02-22 Orders Doctor [facility]EIGN 1.2.840.114 [id number] Univers 00:00:00 00:00:00 Only Unassigned, ALICIA 350.1.13.10 [facility] [place] [facility] 4.2.7.2.686 [place] as [phone] [address] 2018-12-04 2018-12-04 Orders Doctor FOREIGN 1.2.840.114 [id number] Univers 00:00:00 00:00:00 Only Unassigned, ALICIA 350.1.13.10 ity of [place] [facility] 4.2.7.2.686 [place] as [phone] [address] 2018-11-22 2018-11-22 Office Naif [facility] 1.2.840.114 [id number] Univers 15:39:03 16:40:40 Visit Tamia Byrd 350.1.13.10 [place] [phone] [address] Results Test Description Test Time Test Comments Results Result Comments Source Urinalysis 2019-03-20 22:23:00 Test Item Value Reference Range Interpretation Comme nts APPEARANCE (test code = Clear Clear 7314455719) COLOR (test code = 0228463497) Colorless Yellow A PH (test code = 2009611264) 4.8-8.0 SP GRAVITY (test code = 1.003-1.030 2947100790) GLU U QUAL (test code = Negative Negative 7899746754) BLOOD (test code = 4255877687) Large Negative A KETONES (test code = 6624311388) Negative Negative PROTEIN (test code = 2887-8) 30 mg/dL Negative A UROBILIN (test code = 0.2 mg/dL See_Comment [Auto mated message] The 2877975355) system which [employer] nerated this result transmit soraya reference range: 0-1.0 mg /dL. The reference range was not used to interpret th is result as normal/abnormal . BILIRUBIN (test code = Negative Negative 9935690129) NITRITE (test code = 6368603910) Negative Negative LEUK KALYANI (test code = Small Negative A 4186224642) RBC/HPF (test code = 5205733102) See_Comment [Automated message] The system which [employer] nerated this result transmit soraya reference range: 0 - 3 HP F. The reference range was not used to interpret th is result as normal/abnormal . WBC/HPF (test code = 1293517947) See_Comment H [Automated message] The system which [employer] nerated this result transmit soraya reference range: 0 - 5 HP F. The reference range was not used to interpret th is result as normal/abnormal . BACTERIA (test code = Negative Negative 6830710466) AMORPHOUS (test code = Few HPF 4510804607) Lab Interpretation (test code = Abnormal 17646-4) [facility] [id number] 21:24:28CT Abdomen and Pelvis without contrast. CLINICAL [...] abdomen and pelvis.Specifically no kidneystones or hydronephrosis. [facility], Radiant Results Inft User - 03/20/2019 4:26 PM CDTCT Abdomen and Pelvis without contrast.CLINICAL HISTORY: Flank pain. Recurrent stone disease is suspectedTECHNIQUE: Multidetector helical CT acquisition was obtained from the lungbases to the greater trochanters withoutoral and IV contrast. The imageswere reviewed in lung, bone, and soft tissue windows.FINDINGS: Absence of intravenous contrast limits evaluation of the [...] No free air or free fluid. No ly mphadenopathy.Pancreas and Adrenals: Unremarkable pancreas and adrenal glands. [...] without any signs of strangulation or incarceration.CONCLUSION: No acute find ings detected in CT scan of abdomen and pelvis.Specifically no kidney stones or hydronephrosis.[facility] [id number] 20:10:00 Test Item Value Reference Range Interpretation Comments TROPONIN I (test <0.012 See_Comment [Automated code = 3058773273) message] The system which generated this result [...] ? Lab Interpretation Normal (test code = 13614-3) [facility] Metabolic Panel (NA, K, CL, CO2, GLUCOSE, BUN, CREATININE, CA)2019-03-20 19:58:00 Test Item Value Reference Range Interpretation Comments NA (test code = 143 mmol/L 135-145 5266814684) K (test code = 3.4 mmol/L 3.5-5 L 1094824600) CL (test code = 104 mmol/L 98-108 3273960506) CO2 TOTAL (test code = 28 mmol/L 23-31 3093133201) AGAP (test code = 2-16 0565315609) BUN (test code = 19 mg/dL 7-23 1324905407) GLUCOSE (test code = 106 mg/dL 70-110 1311993644) CREATININE (test code = 1.54 mg/dL 0.5-1.04 H 8726963772) CALCIUM (test code = 9.4 mg/dL 8.6-10.6 9710566122) eGFR Calculation mL/min/1.73m2 (Non-) (test code = 0716458452) eGFR Calculation mL/min/1.73m2 () (test code = 6605260998) MEGHNA (test code = MEGHNA) Association of [...] tests). Lab Interpretation Abnormal (test code = 81834-5) [facility] (ALB, T.PRO, BILI T, BU/BC, ALT, AST, ALK PHOS)2019-03-20 19:58:00 Test Item Value Reference Range Interpretation Comments TOTAL BILI (test code = 4798909279) 0.6 mg/dL 0.1-1.1 BILI UNCON (test code = 2758748554) 0.3 mg/dL 0.1-1.1 BILI CONJ (test code = 4675465294) 0.0 mg/dL 0-0.3 T PROTEIN (test code = 0394868765) 8.1 g/dL 6.3-8.2 ALBUMIN (test code = 5293158332) 4.3 g/dL 3.5-5 ALK PHOS (test code = 0343439403) 132 U/L 34-122 H ALT(SGPT) (test code = 9753052958) 107 U/L 9-51 H AST(SGOT) (test code = 0120121761) 110 U/L 13-40 H Lab Interpretation (test code = Abnormal 49214-1) [facility] Irving[facility] [id number] 19:58:00 Test Item Value Reference Range Interpretation Comments LIPASE (test code = 2800619755) 202 U/L 0-220 Lab Interpretation (test code = Normal 47175-3) [facility] WITH [id number] 19:47:00 Test Item Value Reference Range Interpretation Comments WBC (test code = See_Comment [Automated 3119-2) message] The sy stem which generated this result transmitted reference range : 4.30 - 11.10 10*3/?L. The reference range was not used to interpret this result as normal/abnormal . RBC (test code = See_Comment [Automated 262-8) message] The sy stem which generated this [...] RDW-SD (test code = 48.7 fL 39-49.9 94121-0) RDW-CV (test code = 14.0 % 12-15.5 788-0) PLT (test code = See_Comment [Automated 777-3) message] The sy stem which generated this result transmitted reference range : 166 - 358 10*3/ ?L. The reference r abad was not used to interpret this result as normal/abnormal . MPV (test code = 10.5 fL 9.5-12.9 80327-3) NRBC/100 WBC (test See_Comment [Automat ed code = 9473938660) message] The system which generated this result transmitted reference range : 0.0 - 10.0 /100 WBCs. The refer ence range was not u sed to interpret th is result as normal/abnormal . NRBC x10^3 (test code <0.01 See_Comment [Auto mated = 6791133465) message] The s ystem which generated this result transmitted reference range : 10*3/?L. The reference range was not used to interpret this result as normal/abnormal . GRAN MAT (NEUT) % 59.2 % (test code = 770-8) IMM GRAN % (test code 0.40 % = 2796885007) LYMPH % (test code = 32.4 % 736-9) MONO % (test code = 6.0 % 5905-5) EOS % (test code = 1.4 % 713-8) BASO % (test code = 0.6 % 706-2) GRAN MAT x10^3(ANC) 5.97 10*3/uL 1.88-7.09 (test code = 6730722791) IMM GRAN x10^3 (test 0.04 10*3/uL 0-0.06 code = 1527626535) LYMPH x10^3 (test code 3.26 10*3/uL 1.32-3.29 = 731-0) MONO x10^3 (test code 0.60 10*3/uL 0.33-0.92 = 742-7) EOS x10^3 (test code = 0.14 10*3/uL 0.03-0.39 711-2) BASO x10^3 (test code 0.06 10*3/uL 0.01-0.07 = 704-7) Lab Interpretation Abnormal (test code = 60387-1) [facility] 1 [id number] 19:17:17HISTORY: Weakness. TECHNIQUE: Portable AP erect view [...] CONCLUSIONS: No signs of acute cardiopulmonary disease. [facility], Radiant Results Inft User - 03/20/2019 2:19 PM CDTHISTORY: Weakness.TECHNIQUE: Portable AP erect view of the chest is obtained. No prior cheststudy available for comparison.FIND INGS: No acute pneumonia. No pneumothorax or pleural effusion orpulmonary congestion detected. Cardiac size is within normal limits.Midline sternotomy sutures noted from previous thoracic surgery withnumerous metallic clips noted in the left side of the mediastinum. Smallcalcified granuloma suspected in the retrocardiac left lower lung.CONCLUSIONS: No signs of acute cardiopulmonary disease.[facility]"
[2022-03-22] MEDS ORDERED: NA CHLORIDE 0.9% 1,000 ML ONE (11:20)
[2022-03-22] MEDS ORDERED: ONDANSETRON 4 MG/2 ML VIAL ONE (11:20)
[2022-03-22 12:06] LABS: Urine Blood 3+ (Negative); Urine Glucose Negative (Negative); Urine Protein 3+ (Negative); Urine Specific Gravity >=1.030 (1.005-1.030); Urine pH 5.5 (5.0-7.0)
--- NOTE | 2022-03-22 12:42 | RAD REPORT ---
EXAM DESCRIPTION: RAD - Chest Single View - 03/22/2022 12:36 pm CLINICAL HISTORY: weakness COMPARISON: Chest Single View dated 02/12/2022; Chest Single View dated 02/07/2022; Chest Single View dated 01/17/2021; Chest Single View dated 06/07/2020 FINDINGS: Lines: None. Lungs: No evidence of edema or pneumonia. Pleural: No significant pleural effusions or pneumothorax. Cardiac: Mild cardiomegaly. Mediastinum: Within normal limits. Bones: No acute fractures. Sternotomy. Hardware in the lumbar spine. Other: None IMPRESSION: No acute cardiopulmonary disease.
[2022-03-22 13:26] LABS: Absolute Lymphocytes (CBC) 0.7 K/uL (0.7-4.9); Hematocrit 42.2 % (36.0-45.0); Lymphocytes % 3.5 % (15.3-44.8); MCV 86.9 fL (80-100); MPV 10.8 fL (7.6-11.3); RBC Red Blood Cell Count 4.85 M/uL (3.86-4.86)
[2022-03-22 13:31] LABS: Protime INR 1.06
[2022-03-22 13:42] LABS: Albumin 2.5 g/dL (3.4-5.0); Bilirubin Total 0.6 mg/dL (0.2-1.0); Protein, Total 8.7 g/dL (6.4-8.2)
[2022-03-22 13:43] LABS: Potassium 3.6 mmol/L (3.5-5.1)
[2022-03-22 14:26] LABS: Blood Morphology Comment NOT SEEN (NOT SEEN); Platelet Estimate ADEQ
--- NOTE | 2022-03-22 14:26 | RAD REPORT ---
EXAM DESCRIPTION: CT - Head Brain Wo Cont - 03/22/2022 2:20 pm CLINICAL HISTORY: AMS COMPARISON: Head Brain Wo Cont dated 01/17/2021; Head Brain Wo Cont dated 10/07/2020; Abdomen Pelvis W Contrast dated 03/22/2022 TECHNIQUE: All CT scans are performed using dose optimization technique as appropriate and may inclu de automated exposure control or mA/KV adjustment according to patient size. FINDINGS: No intracranial hemorrhage, hydrocephalus or extra-axial fluid collection.No areas of brai n edema or evidence of midline shift. Age advanced cerebral atrophy. Mild chronic small vessel ischem ic changes. The paranasal sinuses and mastoids are clear. The calvarium is intact. IMPRESSION: No acute intracranial abnormality.
--- NOTE | 2022-03-22 14:30 | RAD REPORT ---
EXAM DESCRIPTION: CTAbdomen Pelvis W Contrast - 03/22/2022 2:20 pm CLINICAL HISTORY: VOMITTING AND WEKANESS, IV ONLY COMPARISON: No comparisons TECHNIQUE: CT of the abdomen and pelvis was performed. All CT scans are performed using dose optimization technique as appropriate and may include automated exposure control or mA/KV adjustment according to patient size. FINDINGS: Lower chest: Multi-vessel coronary artery disease. Liver: 6 mm low-density lesion left hepatic lobe is likely benign. Biliary: No biliary ductal dilatation. Stomach: No significant focal abnormality. Duodenum: No significant focal abnormality. Pancreas: No significant abnormality. Spleen: No significant abnormality. Adrenal: No suspicious lesions. Kidney/ureter: No hydronephrosis. No renal calculi. Too small to characterize and/or benign appearing renal lesions are noted. Retroperitoneum: No retroperitoneal adenopathy. Vascular: No aneurysm. Bowel: Moderate stool in the colon. Normal appendix.. Peritoneum: No ascites or free air. Small fat containing ventral hernia. Bladder: Grossly unremarkable. Reproductive: No adnexal masses. Hysterectomy. Bones: No acute fracture. Sternotomy. L4 through S1 fusion. Other: n/a IMPRESSION: No acute intra-abdominal or pelvic finding. Incidental findings as noted above.
[2022-03-22] MEDS ORDERED: CEFTRIAXONE 1000 MG/VIAL ONE (14:36)
--- NOTE | 2022-03-22 14:44 | EDPHYS ---
Physician Documentation [facility] Name: Michaela Matias Age: 81 yrs Sex: Female : 1940 Arrival Date: 03/22/2022 Time: 09:47 Bed 13 Private MD: Rodrick Holly E ED Physician Chinedu Armenta HPI: 03/22 11:25 This 81 yrs old Female presents to ER via Wheelchair with complaints of Weakness, rn Vomiting. 11:25 The patient presents to the emergency department with weakness of the entire body, rn generalized weakness. Onset: The symptoms/episode began/occurred at an unknown time. Associated signs and symptoms: Pertinent positives:. 11:26 Severity of symptoms: At their worst the symptoms were moderate in the emergency rn department the symptoms are unchanged. Current symptoms: decreased level of consciousness. The patient has experienced similar episodes in the past. The patient has not recently seen a physician. Son reports worsening dementia, worse over the weekend, no new symptoms. No fever/vomiting/diarrhea. Not eating or drinking. Family was in talks with pcp regarding hospice since not eating or drinking, but got concerned and brought him in today. No fall or trauma. . Historical: - Allergies: 10:12 Demerol; ll1 - PMHx: 10:12 Alzheimers; Dementia; High Cholesterol; Hypertension; ll1 - PSHx: 10:12 back sx; cardiac bypass; ll1 - Immunization history:: Client reports receiving the 2nd dose of the Covid vaccine. - Social history:: Smoking status: Patient/guardian denies using tobacco, the patient reports quitting approximately 20 years ago. - Family history:: not pertinent. - Hospitalizations: : No recent hospitalization is reported. ROS: 11:26 Unable to obtain ROS due to baseline dementia. rn Exam: 11:26 Constitutional: Thin female, no acute distress, somnolent but awakens to tactile rn stimulation Head/Face: Normocephalic, atraumatic. Eyes: Periorbital areas with no swelling, redness, or edema. ENT: Very dry MM Cardiovascular: Tachycardic, regular. No pulse deficits. Respiratory: No increased work of breathing, no retractions or nasal flaring. Abdomen/GI: Soft, non-tender Skin: Warm, dry, no cellulitis noted MS/ Extremity: Pulses equal, no cyanosis. Neuro: Somnolent, awakens to voice tactile stimulation, 3+/5 strength throughout, withdraws and localizes to painful stimuli. Vital Signs: 10:10 BP 176 / 83; Pulse 125; Resp 22; Temp 99.9(TE); Pulse Ox 93% on R/A; Weight 49.9 kg; ll1 Height 5 ft. 2 in. (157.48 cm); Pain 8/10; 12:25 BP 179 / 67; Pulse 111; Resp 25; Pulse Ox 94% on R/A; jd3 15:25 BP 151 / 68; Pulse 104; Resp 29; Pulse Ox 90% on R/A; em6 10:10 Body Mass Index 20.12 (49.90 kg, 157.48 cm) ll1 Procedures: 03/23 07:41 Central Line: the site was prepped with Betadine, a triple lumen catheter was inserted, maranda in the right in 1 attempts. placement was verified, by blood return, the site was dressed with using sterile technique, the patient tolerated the procedure, well. MDM: 03/22 10:18 Patient medically screened. rn 14:04 ED course: No source of infection identified at this time, does otherwise have SIRS rn criteria and elevated lactate but < 4. Fluids ordered as well as abx. Urine without obvious infection, CXR neg, COVID pending.. 14:41 Data reviewed: vital signs, nurses notes, lab test result(s), radiologic studies, CT rn scan, plain films, and as a result, I will admit patient. Counseling: I had a detailed discussion with the patient and/or guardian regarding: the historical points, exam findings, and any diagnostic results supporting the discharge/admit diagnosis, lab results, radiology results, the need for further work-up and treatment in the hospital. Response to treatment: the patient's symptoms have mildly improved after treatment, and as a result, I will admit patient. Admission orders: after a detailed discussion of the patient's condition and case, the admit orders are written by me. 03/22 10:20 Order name: CBC with Diff rn 03/22 10:20 Order name: CMP rn 03/22 10:20 Order name: Lipase rn 03/22 10:20 Order name: Urine Microscopic Only rn 03/22 10:20 Order name: SARS-COV-2 RT PCR (Document "Date of Onset" if Symptomatic) rn 03/22 10:21 Order name: Blood Culture Adult (2) rn 03/22 10:21 Order name: Lactate rn 03/22 10:21 Order name: Protime (+inr) rn 03/22 10:21 Order name: Ptt, Activated rn 03/22 11:19 Order name: Urine Culture rn 03/22 12:07 Order name: Urine Dipstick-Ancillary; Complete Time: 13:14 EDMD 03/22 12:16 Order name: Glucose, Ancillary Testing; Complete Time: 13:14 EDMS 03/22 13:31 Order name: Protime (+INR); Complete Time: 13:36 EDMS 03/22 13:31 Order name: PTT, Activated Partial Thromb; Complete Time: 13:36 EDMS 03/22 13:37 Order name: CBC with Automated Diff; Complete Time: 14:28 EDMS 03/22 13:44 Order name: Comprehensive Metabolic Panel; Complete Time: 14:04 EDMS 03/22 13:44 Order name: Lipase; Complete Time: 14:04 EDMD 03/22 13:52 Order name: Lactate; Complete Time: 14:04 EDMS 03/22 14:26 Order name: Manual Differential; Complete Time: 14:28 EDMD 03/22 17:49 Order name: Lactate Sepsis 2 HR Follow-up EDMD 03/22 18:08 Order name: SARS-COV-2 Antigen Rapid EDMS 03/22 22:14 Order name: Blood Culture EDMD 03/23 02:45 Order name: NT PRO-BNP EDMD 03/23 02:50 Order name: CBC with Automated Diff EDMD 03/23 03:01 Order name: Comprehensive Metabolic Panel EDMD 03/23 03:01 Order name: Phosphorus EDMS 03/23 03:01 Order name: Magnesium EDMS 03/23 04:05 Order name: Blood Culture EDMD 03/23 04:05 Order name: Gram Stain--Anaerobic Bottle EDMS 03/23 04:06 Order name: Blood Culture EDMD 03/22 10:20 Order name: CT Abd/Pelvis - IV Contrast Only rn 03/22 10:20 Order name: IV Saline Lock; Complete Time: 12:07 rn 03/22 10:20 Order name: Labs collected and sent; Complete Time: 12:07 rn 03/22 10:20 Order name: Urine Dipstick-Ancillary (obtain specimen); Complete Time: 12:07 rn 03/22 10:21 Order name: XRAY Chest (1 view) rn 03/22 10:21 Order name: Accucheck; Complete Time: 12:07 rn 03/22 10:21 Order name: Cardiac monitoring; Complete Time: 12:15 rn 03/22 10:21 Order name: EKG - Nurse/Tech; Complete Time: 12:15 rn 03/22 10:21 Order name: IV Saline Lock - Large Bore; Complete Time: 12:15 rn 03/22 10:21 Order name: O2 Per Protocol; Complete Time: 12:09 rn 03/22 10:21 Order name: O2 Sat Monitoring; Complete Time: 12:09 rn 03/22 11:25 Order name: CT Head Brain wo Cont rn 03/22 12:43 Order name: RAD; Complete Time: 13:14 EDMS 03/22 14:26 Order name: CT; Complete Time: 14:28 EDMS 03/22 14:32 Order name: CT; Complete Time: 14:41 EDMS 03/23 04:06 Order name: Gram Stain--Aerobic Bottle EDMS 03/23 04:06 Order name: Gram Stain--Anaerobic Bottle EDMS 03/23 07:00 Order name: Gram Stain--Aerobic Bottle EDMS 03/23 09:23 Order name: RAD EDMS Administered Medications: 12:00 Drug: NS 0.9% 1000 ml Route: IV; Rate: 1 bolus; Site: right wrist; em6 14:00 Follow up: Response: No adverse reaction; IV Status: Completed infusion; IV Intake: em6 1000ml 12:00 Drug: Zofran (Ondansetron) 4 mg Route: IVP; Site: right wrist; em6 12:30 Follow up: Response: No adverse reaction em6 15:00 Drug: Rocephin (cefTRIAXone) 1 grams Route: IV; Rate: calculated rate; Site: left wrist;em6 15:33 Follow up: Response: No adverse reaction em6 Disposition Summary: 03/22/22 14:42 Hospitalization Ordered Hospitalization Status: Inpatient Admission rn Provider: Alber Reagan rn Condition: Stable rn Problem: new rn Symptoms: have improved rn Bed/Room Type: Standard rn Location: [facility] ER HOLD(03/22/22 19:16) cg Room Assignment: [facility]-(03/22/22 19:16) cg Diagnosis - Altered mental status, unspecified rn - Dehydration rn - Dementia in other diseases classified elsewhere without behavioral disturbance rn - Adult failure to thrive rn Forms: - Medication Reconciliation Form rn - SBAR form rn Signatures: Dispatcher [employer] EDChinedu Hicks MD MD cha Nieto, Roman, MD MD rn Garcia, Cindy, RN RN cg Lewis, Lynsay, RN RN 1 Lizzy Stokes RN RN em6 Corrections: (The following items were deleted from the chart) : 14:42 Telemetry/MedSurg (Inpatient) rn cg 19:16 14:42 rn lucina
--- NOTE | 2022-03-22 14:44 | ER ---
Nurse's Notes [facility] Name: Michaela Matias Age: 81 yrs Sex: Female : 1940 Arrival Date: 03/22/2022 Time: 09:47 Bed 13 Private MD: Rodrick Holly E Diagnosis: Altered mental status, unspecified;Dehydration;Dementia in other diseases classified elsewhere without behavioral disturbance;Adult failure to thrive Presentation: 03/22 10:10 Chief complaint: Patient states: N/V, weak, coughing up foods/fluids for 3 days. ll1 Coronavirus screen: Vaccine status: Patient reports receiving the 2nd dose of the covid vaccine. Client denies travel out of the [place] in the last 14 days. difficulty breathing, fatigue, fever, headache, Client presents with at least one sign or symptom that may indicate coronavirus-19. Standard/surgical mask placed on the client. Ebola Screen: Patient denies travel to an Ebola-affected area in the 21 days before illness onset. No acute neurological deficit is noted. Initial Sepsis Screen: Does the patient meet any 2 criteria? RR > 20 per min. HR > 90 bpm. Does the patient have a suspected source of infection? Yes: Acute abdominal pain. Risk Assessment: Do you want to hurt yourself or someone else? Patient reports no desire to harm self or others. Onset of symptoms was March 20, 2022. 10:10 Method Of Arrival: Wheelchair ll1 10:10 Acuity: ROSALBA 2 ll1 Triage Assessment: 10:12 General: Appears ill, Behavior is cooperative, appropriate for age. Pain: Complains of ll1 pain in abdomen Quality of pain is described as aching. Neuro: Reports weakness AMS. GI: Reports nausea, vomiting. Stroke Activation: Symptom onset > 6 hours Physician: Stroke Attending; Name: ; Notified At: ; Arrived At: Physician: Chief Stroke Resident; Name: ; Notified At: ; Arrived At: Physician: Stroke Resident; Name: ; Notified At: ; Arrived At: Physician: ED Attending; Name: ; Notified At: ; Arrived At: Physician: ED Resident; Name: ; Notified At: ; Arrived At: Historical: - Allergies: 10:12 Demerol; ll1 - PMHx: 10:12 Alzheimers; Dementia; High Cholesterol; Hypertension; ll1 - PSHx: 10:12 back sx; cardiac bypass; ll1 - Immunization history:: Client reports receiving the 2nd dose of the Covid vaccine. - Social history:: Smoking status: Patient/guardian denies using tobacco, the patient reports quitting approximately 20 years ago. - Family history:: not pertinent. - Hospitalizations: : No recent hospitalization is reported. Screenin:30 Abuse screen: Denies threats or abuse. Nutritional screening: No deficits noted. em6 Tuberculosis screening: No symptoms or risk factors identified. Fall Risk IV access (20 points). Ambulatory Aid- None/Bed Rest/Nurse Assist (0 pts). Gait- Normal/Bed Rest/Wheelchair (0 pts) Mental Status- Overestimates/Forgets Limitations (15 pts.). Total Renee Fall Scale indicates Low Risk Score (25-44 pts). Fall prevention measures have been instituted. Side Rails Up X 2 Placed close to Nursing Station Frequent Obs/Assesments occuring Family Present and informed to notify staff if they need to leave bedside As available Patient and Family Educated on Fall Prevention Program and strategies. Assessment: 10:30 General: Appears ill, Behavior is listless, quiet. Pain: Unable to use pain scale. em6 Patient appears quiet. Neuro: Brownlee Agitation-Sedation Scale (RASS): -1 Drowsy Level of Consciousness is awake, confused, lethargic, Oriented to none. Cardiovascular: Patient's skin is warm and dry. Rhythm is sinus tachycardia. Respiratory: Airway is patent Respiratory effort is even, unlabored, Respiratory pattern is regular, tachypnea. GI: Abdomen is non-distended, Abd is soft and non tender X 4 quads. : No signs and/or symptoms were reported regarding the genitourinary system. EENT: No signs and/or symptoms were reported regarding the EENT system. Derm: Skin is pale. Musculoskeletal: No signs and/or symptoms reported regarding the musculoskeletal system. 12:30 Reassessment: Patient appears in no apparent distress at this time. No changes from em6 previously documented assessment. Patient and/or family updated on plan of care and expected duration. Pain level reassessed. 13:30 Reassessment: Patient appears in no apparent distress at this time. No changes from em6 previously documented assessment. Patient and/or family updated on plan of care and expected duration. Pain level reassessed. 15:06 Reassessment: Patient appears in no apparent distress at this time. No changes from em6 previously documented assessment. Vital Signs: 10:10 BP 176 / 83; Pulse 125; Resp 22; Temp 99.9(TE); Pulse Ox 93% on R/A; Weight 49.9 kg; ll1 Height 5 ft. 2 in. (157.48 cm); Pain 8/10; 12:25 BP 179 / 67; Pulse 111; Resp 25; Pulse Ox 94% on R/A; jd3 15:25 BP 151 / 68; Pulse 104; Resp 29; Pulse Ox 90% on R/A; em6 10:10 Body Mass Index 20.12 (49.90 kg, 157.48 cm) ll1 ED Course: 09:47 Patient arrived in ED. mr 09:47 Rodrick Holly MD is Private Physician. mr 10:12 Triage completed. ll1 10:13 Arm band placed on. ll1 10:18 Shun Amaro MD is Attending Physician. rn 10:30 Patient has correct armband on for positive identification. Placed in gown. Bed in low em6 position. Call light in reach. Side rails up X2. Child being held by parent. hall monitor on. Pulse ox on. NIBP on. Warm blanket given. 12:25 Rocco Nick RN is Primary Nurse. j 14:42 Alber Reagan MD is Hospitalizing Provider. rn 14:57 Missed attempt(s): 22 gauge in right antecubital area. Bleeding controlled, band aid ll1 applied, catheter tip intact. 15:00 Inserted saline lock: 22 gauge in left forearm, using aseptic technique. ll1 20:30 role handed off by Lizzy Stokes RN 20:30 Primary Nurse role handed off by Rocco Nick RN 03/23 07:40 Attending Physician role handed off by Shun Amaro MD [facility] 07:40 Chinedu Armenta MD is Attending Physician. [facility] Administered Medications: 03/22 12:00 Drug: NS 0.9% 1000 ml Route: IV; Rate: 1 bolus; Site: right wrist; em6 14:00 Follow up: Response: No adverse reaction; IV Status: Completed infusion; IV Intake: em6 1000ml 12:00 Drug: Zofran (Ondansetron) 4 mg Route: IVP; Site: right wrist; em6 12:30 Follow up: Response: No adverse reaction em6 15:00 Drug: Rocephin (cefTRIAXone) 1 grams Route: IV; Rate: calculated rate; Site: left wrist;em6 15:33 Follow up: Response: No adverse reaction em6 Medication: 15:08 VIS not applicable for this client. em6 Intake: 14:00 IV: 1000ml; Total: 1000ml. em6 Outcome: 14:42 Decision to Hospitalize by Provider. rn 03/23 18:48 Patient left the ED. ph Signatures: Chinedu Armenta ph D, MD MD cha Rivera, Mary mr Nieto, Roman, MD MD rn Hall, Patricia, RN RNavies, Jonathon, RN RN jd3 Lewis, Lynsay, RN RN ll1 Sheela Gould Erika, RN RN em6 Corrections: (The following items were deleted from the chart) 03/22 15:07 11:30 Reassessment: Patient appears in no apparent distress at this time. No changes em6 from previously documented assessment. Patient and/or family updated on plan of care and expected duration. Pain level reassessed. Patient is alert, oriented x 3, equal unlabored respirations, skin warm/dry/pink. em6
[2022-03-22] MEDS ORDERED: ONDANSETRON 4 MG/2 ML VIAL IV PRN (15:54)
[2022-03-22] MEDS: D5 0.45 NS 1,000 ML IV SCH (16:00)
[2022-03-22] MEDS ORDERED: ACETAMINOPHEN 325 MG TABLET PO PRN (16:32)
--- NOTE | 2022-03-22 16:42 | P.HP ---
Certification for Inpatient Patient admitted to: Inpatient With expected LOS: >2 Midnights Practitioner: I am a practitioner with admitting privileges, knowledge of patient current condition, hospital course, and medical plan of care. Services: Services provided to patient in accordance with Admission requirements found in Title 42 Section 412.3 of the Code of Federal Regulations Patient History Date of Service: 03/22/22 Reason for admission: Sepsis, weakness, volume depletion. History of Present Illness: 81-year-old female patient with medical history significant for dementia, hypertension , history of CHF who was evaluated in the emergency room for episode of altered mentation/weakness and vomiting. She has had episode of persistent weakness and also suspicion for possible aspiration as she had a choking spell while eating yesterday. She also had issues with altered mentation however there was no overt issue with falls, fever, chills, rigor. No diarrhea reported. She was noted to have elevated white cell of 20,000 and there was concern for underlying septic condition however imaging studies were nonrevealing. She was asked to be admitted for inpatient care. Blood cultures and urine cultures were taken and empiric antibiotic therapy with Rocephin was started prior to admission. 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 - Family History Mother -: Cancer Father -: Diabetes Sister -: Cancer - Social History Alcohol use: No CD- Drugs: No Caffeine use: No Review of Systems is unable to be obtained (Due to altered mentation.) Physical Examination - Physical Exam General: Delirious HEENT: Atraumatic, Normocephalic Neck: Supple Respiratory: Diminished Cardiovascular: Regular rate/rhythm, Normal S1 S2 Gastrointestinal: Soft and benign Musculoskeletal: No swelling - Studies Laboratory Data (last 24 hrs) 03/22/22 11:47: PT 11.7, INR 1.06, APTT 26.5 03/22/22 11:47: Sodium 139, Potassium 3.6, BUN 44 H, Creatinine 1.17, Glucose 158 H, Total Bilirubin 0.6, AST 25, ALT 16, Alkaline Phosphatase 144 H, Lipase 47 L 03/22/22 11:47: WBC 20.80 H*, Hgb 13.4, Hct 42.2, Plt Count 153 Assessment and Plan - Plan Sepsis: Present on admission There is significant leukocytosis with white cell count of 20,000. UA is concerning for possible UTI. Chest x-ray is not significantly concerning however patient has had possible aspiration episode prior there are concerns with her swallow. Will continue empiric antibiotic of Rocephin and follow symptomatology. Will monitor cultures for adjustment UTI: UA is concerning for Empiric Rocephin started. Will monitor urine culture for adjustment Dementia: Patient is a history of vascular dementia and is on appropriate therapy. We discussed with family about goals of care. Would continue to have family discussion to clearly state long-term goals of cares. Follow-up patient will be continued as full CODE STATUS pending further review Volume depletion: There significant concern for volume depletion as patient did come with borderline low blood pressure and use of this assessment. Will continue evaluation with isotonic fluid. we will follow volume status and blood pressure closely. Prophylaxis: Lovenox and scds for DVT. Code status: Full code. Disposition: DC home once deemed clinically stable. - Advance Directives Does patient have a Living Will: No Does patient have a Durable POA for Healthcare: Yes
[2022-03-22] MEDS ORDERED: D5 0.45 NS 1,000 ML IV ONE (16:53)
[2022-03-22 18:08] LABS: SARS-CoV-2 Antigen Rapid Res Negative (Negative)
[2022-03-22 18:22] VITALS: BMI 20.1
[2022-03-22] MEDS ORDERED: ACETAMINOPHEN 650MG/RECT SUPP PR PRN (23:20)
[2022-03-22] MEDS ORDERED: ACETAMINOPHEN 650MG/RECT SUPP PR ONE (23:35)
--- NOTE | 2022-03-23 01:41 | P.PN ---
Subjective Date of Service: 03/23/22 Review of Systems 10-point ROS is otherwise unremarkable Physical Examination - Vital Signs Temperature: 103.0 F Blood Pressure: 161/90 Pulse: 117 Respirations: 25 Pulse Ox (%): 95 - Physical Exam General: Alert, In no apparent distress, Confused HEENT: Atraumatic, PERRLA, EOMI Neck: Supple, JVD not distended Respiratory: Clear to auscultation bilaterally, Normal air movement Cardiovascular: Regular rate/rhythm, Normal S1 S2 Gastrointestinal: Normal bowel sounds, No tenderness Musculoskeletal: No tenderness Integumentary: No rashes Neurological: Normal speech, Normal tone, Normal affect Lymphatics: No axilla or inguinal lymphadenopathy - Studies Laboratory Data (last 24 hrs) 03/22/22 11:47: PT 11.7, INR 1.06, APTT 26.5 03/22/22 11:47: Sodium 139, Potassium 3.6, BUN 44 H, Creatinine 1.17, Glucose 158 H, Total Bilirubin 0.6, AST 25, ALT 16, Alkaline Phosphatase 144 H, Lipase 47 L 03/22/22 11:47: WBC 20.80 H*, Hgb 13.4, Hct 42.2, Plt Count 153 03/22/22 10:21: PT Cancelled, INR Cancelled, APTT Cancelled 03/22/22 10:20: Sodium Cancelled, Potassium Cancelled, BUN Cancelled, Creatinine Cancelled, Glucose Cancelled, Total Bilirubin Cancelled, AST Cancelled, ALT Cancelled, Alkaline Phosphatase Cancelled, Lipase Cancelled 03/22/22 10:20: WBC Cancelled, Hgb Cancelled, Hct Cancelled, Plt Count Cancelled Medications List Reviewed: Yes Assessment & Plan - Problems (Diagnosis) (1) Sepsis Current Visit: Yes Status: Acute (2) SANDRINE (acute kidney injury) Current Visit: Yes Status: Acute (3) Leukocytosis Current Visit: Yes Status: Acute (4) Acute metabolic encephalopathy Current Visit: No Status: Acute (5) UTI (urinary tract infection) Current Visit: No Status: Acute (6) CAD (coronary artery disease) Current Visit: No Status: Chronic Qualifiers: [place] vs. transplanted heart: [place] heart Associated angina: with unstable angina (7) HTN (hypertension) Current Visit: No Status: Chronic Qualifiers: Hypertension type: essential hypertension Qualified Code(s): I10 - Essential (primary) hypertension - Plan -IV hydration -IV antibiotics -cultures are pending -check renal function and electrolytes -physical therapy evaluation once mentation is improved -discuss code status with family - Advance Directives Does patient have a Living Will: No Does patient have a Durable POA for Healthcare: Yes
[2022-03-23 02:34] LABS: Absolute Lymphocytes (CBC) 0.8 K/uL (0.7-4.9); Hematocrit 33.4 % (36.0-45.0); Lymphocytes % 3.8 % (15.3-44.8); MCV 85.9 fL (80-100); MPV 10.3 fL (7.6-11.3); RBC Red Blood Cell Count 3.89 M/uL (3.86-4.86)
[2022-03-23 02:56] LABS: AST/SGOT 17 U/L (15-37); Albumin 1.9 g/dL (3.4-5.0); Alkaline Phosphatase 104 U/L (45-117); BUN Blood Urea Nitrogen 31 mg/dL (7-18); Bicarbonate 24 mmol/L (21-32); Bilirubin Total 0.5 mg/dL (0.2-1.0); Glomerular Filtration Rate 58 ml/min (=/>90); Glucose Level 161 mg/dL (74-106); Phosphorus 2.4 mg/dL (2.5-4.9); Protein, Total 6.3 g/dL (6.4-8.2); Sodium Level 141 mmol/L (136-145)
[2022-03-23 03:00] LABS: ALT/SGPT < 10 U/L (12-78); Potassium 2.8 mmol/L (3.5-5.1)
[2022-03-23] MEDS: D5 0.45 NS 1,000 ML IV SCH ×2 (03:00→12:00)
[2022-03-23] MEDS ORDERED: ALBUMIN HUMAN 25% 200 ML IV ONE (03:20)
[2022-03-23] MEDS ORDERED: D5 0.45 NS 1,000 ML IV ONE ×2 (03:25→08:31)
[2022-03-23] MEDS ORDERED: ALBUMIN HUMAN 25% 100 ML IV ONE (03:45)
[2022-03-23] MEDS: ALBUMIN HUMAN 25% 50 ML IV SCH ×4 (03:45→05:30)
[2022-03-23] MEDS ORDERED: ALBUMIN HUMAN 25% 50 ML IV ONE ×5 (04:45→16:04)
[2022-03-23] MEDS ORDERED: VANCOMYCIN 500 MG/VIAL ONE (04:45)
[2022-03-23] MEDS ORDERED: VANCOMYCIN 1 GM/VIAL ONE (04:45)
[2022-03-23] MEDS ORDERED: NA CHLORIDE 0.9% 250 ML ONE ×3 (04:45→11:10)
[2022-03-23] MEDS ORDERED: VANCOMYCIN 1 GM in NA CHLORIDE 0.9% 250 ML IVPB SCH (05:00)
[2022-03-23] MEDS ORDERED: VANCOMYCIN 1.25 GM in NA CHLORIDE 0.9% 250 ML IVPB ONE (05:00)
[2022-03-23] MEDS ORDERED: ALBUMIN HUMAN 25% 0 ML IV ONE (05:33)
[2022-03-23] MEDS ORDERED: HYDROCORTISONE SUC 100 MG INJ IV ONE (06:48)
[2022-03-23] MEDS ORDERED: NA CHLORIDE 0.9% 250 ML IV ONE (06:49)
[2022-03-23] MEDS ORDERED: Meropenem 500 MG in NA CHLORIDE 0.9% 100 ML IV SCH (06:50)
[2022-03-23] MEDS: KCL 20 MEQ/100 mL IVPB 20 MEQ/100 ML BAG IV SCH ×2 (07:00→09:00)
[2022-03-23] MEDS ORDERED: HYDROCORTISONE SUC 100 MG INJ ONE (07:10)
[2022-03-23] MEDS ORDERED: Meropenem 500 MG VIAL IV ONE (08:30)
[2022-03-23] MEDS ORDERED: CEFTRIAXONE 1000 MG/VIAL ONE (08:30)
[2022-03-23] MEDS ORDERED: NA CHLORIDE 0.9% 50 ML ONE (08:31)
[2022-03-23] MEDS ORDERED: NA CHLORIDE 0.9% 100 ML ONE (08:31)
[2022-03-23] MEDS ORDERED: KCL 20 MEQ/100 mL IVPB 100 ML IV ONE ×2 (08:31→11:10)
[2022-03-23] MEDS ORDERED: ENOXAPARIN 40 MG/0.4 ML SQ ONE (08:31)
[2022-03-23] MEDS ORDERED: CEFTRIAXONE 1,000 MG in NA CHLORIDE 0.9% 50 ML IVPB SCH (09:00)
[2022-03-23] MEDS ORDERED: ENOXAPARIN 40 MG/0.4 ML SQ SCH (09:00)
--- NOTE | 2022-03-23 09:22 | RAD REPORT ---
EXAM DESCRIPTION: RAD - Chest Single View - 03/23/2022 9:11 am CLINICAL HISTORY: central line verification COMPARISON: Chest Single View dated 03/22/2022; Chest Single View dated 02/12/2022; Chest Single View d ated 02/07/2022; Chest Single View dated 01/17/2021; Abdomen Pelvis W Contrast dated 03/22/2022 FINDINGS: Lines: None. Lungs: Nonspecific coarsening of the interstitium. No evidence of alveolar edema. No consolidative ai rspace disease. Pleural: No significant pleural effusions or pneumothorax. Cardiac: The heart size is within normal limits. Sternotomy. Atherosclerosis. Mediastinum: Within normal limits. Bones: No acute fractures. Other: None IMPRESSION: Nonspecific coarsening of the pulmonary interstitium. No evidence of alveolar edema or c onsolidation. Despite the indication, no central line is identified.
[2022-03-23] MEDS ORDERED: NOREPINEPHRINE 4 MG in D5W 250 ML IV SCH (12:30)
[2022-03-23] MEDS ORDERED: NOREPINEPHRINE BITARTRATE/D5W 4 MG/250 ML BAG IV ONE (12:35)
--- NOTE | 2022-03-23 12:50 | EKG ---
Test Date: 2022-03-22 Test Time: 12:07:37 Casting Room Helper: MEASUREMENT RESULTS: Intervals: Rate: 119 UT: 158 QRSD: 78 QT: 314 QTc: 441 [place]: P: 75 UT: 158 QRS: 53 T: 75 INTERPRETIVE STATEMENTS: Sinus tachycardia with occasional premature ventricular complexes Nonspecific ST abnormality Abnormal ECG Compared to ECG 02/07/2022 09:07:38 Ventricular premature complex(es) now present Sinus rhythm no longer present ST (T wave) deviation still present Electronically Signed On 03-23-22 12:49:21 CDT by Shaan Pace
[2022-03-23] MEDS ORDERED: NOREPINEPHRINE BITARTRATE/D5W 4 MG/250 ML BAG IV SCH (14:00)
[2022-03-23 19:36] VITALS: TEMP 99.9
[2022-03-23 19:40] VITALS: BP 151/68; O2SAT 90
[2022-03-24] MEDS ORDERED: VANCOMYCIN 1 GM in NA CHLORIDE 0.9% 250 ML IVPB SCH (17:00)
== END 2022-03-23 18:45 | disposition short-term general hospital (02) | DRG 871 ==
LOC: ER 09:34 → ERHOLD 15:55
PROVIDERS: ADMIT Internal Medicine Nephrology; ATTEND Hospitalist
DX: A41.9 Sepsis, unspecified organism (principal); N17.0 Acute kidney failure with tubular necrosis; R65.21 Severe sepsis with septic shock; G93.41 Metabolic encephalopathy; N39.0 Urinary tract infection, site not specified; E86.0 Dehydration; I10 Essential (primary) hypertension; I25.10 Atherosclerotic heart disease of native coronary artery without angina pectoris; F01.50 Vascular dementia, unspecified severity, without behavioral disturbance, psychotic disturbance, mood disturbance, and anxiety; R62.7 Adult failure to thrive; Z88.5 Allergy status to narcotic agent; Z95.1 Presence of aortocoronary bypass graft; Z68.20 Body mass index [BMI] 20.0-20.9, adult; Z87.891 Personal history of nicotine dependence; Z90.710 Acquired absence of both cervix and uterus; Z79.899 Other long term (current) drug therapy; Z20.822 Contact with and (suspected) exposure to COVID-19
CPT/HCPCS: 36415; 70450; 71045; 74177; 80053; 81003; 82947; 83605; 83690; 83735; 83880; 84100; 85025; 85610; 85730; 87040; 87077; 87086; 87088; 87186; 87205; 87811; 93005; 99284; J1650; J1720; J2405; J3370; J3480; J7030; J7050; J7799; P9047; Q9967

== ENCOUNTER 2023-03-11 20:35 | Emergency (ER) | payer OTHER ==
--- OUTSIDE RECORDS SUMMARY | 2023-03-11 20:46 | XMS REPORT | Continuity of Care Document ---
:1940 Author Organization [facility] t Address [address] [place] [address] Care Team Providers Name Role Phone Asked, No Pcp Primary Care Physician Unavailable Balwinder Bueno Attending Clinician Unavailable Only, Adc Test Attending Clinician Unavailable Ousmane Vides MD Attending Clinician Doctor Unassigned, [place] Attending Clinician Unavailable Tamia Disla MD Attending Clinician [phone] Nasrin ZHANG, Chencho Attending Clinician Adeline ZHANG, Geraldo Rahman Attending Clinician Balwinder Bueno Admitting Clinician Unavailable Payers Payer Name Policy Type Policy Number Effective Date Expiration Date Nader RODRIGUEZ [facility] 53 [id number] 2021 Common ADVANTAGE 00:00:00 Spirit - [facility] MEDICARE PART A [id number] 2006 \\T\\ B 00:00:00 COMMERCIAL [id number] 2018 NON-CONTRACT 00:00:00 GENERIC Problems Condition Condition Condition Status Onset Resolution Last Treating Co mments Source Name Details Category Date Date Treatment Clinician Date Poor Poor Disease Active 2019-0 Univers appetite appetite 9-08 ity of 00:00: [place] 00 [facility] Dehydratio Dehydratio Disease Active 2019-0 U nivers n n 9-04 ity of 00:00: [place] 00 [facility] 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 9-04 it y of thrive thrive 00:00: [place] 00 [facility] Medication Medication Disease Active 2019-0 U nivers refill refill 9-04 ity of 00:00: [place] 00 [facility] Lethargy Lethargy Disease Active 2019-0 Unive rs 9-04 ity of 00:00: [place] 00 [facility] Medication Medication Disease Active 2019-0 U nivers refill refill 9-04 ity of 00:00: [place] 00 [facility] Urinary Urinary Disease Active 2019-0 Univers tract tract 8-21 [place] of [place] without [place] hematuria, hematuria, Br anch site site unspecifie unspecifie d d Acute Acute Disease Active 2019-0 Univers bilateral bilateral 8-21 ity of low back low back 00:00: [place] pain pain 00 Medical without without Branch sciatica sciatica Flank pain Flank pain Disease Active 2019-0 U nivers 8-21 ity of 00:00: [place] 00 Medical Branch HTN HTN Disease Active 2017-07 [facility] (hypertens (hypertens 2-14 st ion) ion) 00:00: Hospita 00 l Type 2 Type 2 Disease Active [facility] diabetes diabetes 6-22 st mellitus mellitus 00:00: Hospit a 00 l PUD PUD Disease Active [facility] (peptic (peptic 01-05 ulcer ulcer 00:00: Hospita disease) disease) 00 l CKD CKD Disease Active [facility] (chronic (chronic 01-05 kidney kidney 00:00: Hospita disease), disease), 00 l stage III stage III [id number] Obstipatio Problem Active Co mmon n [facility] [id number] Recurrent Problem Active Com mon UTI [facility] Incontinen Incontinen Problem Active C ommon ce ce [facility] [id number] Microscopi Problem Active Co mmon c [facility] hematuria [facility] [id number] Cystitis Problem Active Comm on bacillary, [facility] Dementia Dementia Disease Active Unive rs ity [facility] Depression Depression Disease Active U nivers ity [facility] Diabetes Diabetes Disease Active Unive rs ity [facility] High High Disease Active Univers cholestero cholestero it y of l [facility] Celiac Celiac Disease Active [facility] Allergies, Adverse Reactions, Alerts Allergy Allergy Status Severity Reaction(s) Onset Inactive Treating Comm ents Source Name Type Date Date Clinician meperidi DA Active U NAUSEA [facility] ne VOMITING 03-23 Clear 00:00: [place] 00 [facility] Gluten Propensi Active Unknown - Unive rs ty to See comments 3- ity of adverse 00:00: [place] reaction 00 [facility] GLUTEN DRUG Active Unknown-Cmnt Univ ers INGREDI 3-27 ity of 00:00: 00 [facility] Meperidi Propensi Active Hallucinatio 2016-07 Univers ne Hcl ty to ns 0-18 ity of adverse 00:00: [place] reaction 00 [facility] Prometha Propensi Active Hallucinatio 2016-07 Univers zine Hcl ty to ns 0-18 ity of adverse 00:00: [place] reaction [facility] MEPERIDI DRUG Active Hallucinates 2016-07 Un tracee NE HCL INGREDI 0-18 ity of 00:00: [facility] PROMETHA DRUG Active Hallucinates 2016-07 Un tracee ZINE HCL INGREDI 0-18 ity of 00:00: 00 [facility] Sulfamet Propensi Active Nausea, Metho di hoxazole ty to 01-[address] -Trimeth adverse 00:00: Hospita oprim reaction 00 l s to drug Meperidi Propensi Active GI Nausea Method i ne ty to Intolerance 01-[address] adverse 00:00: Hospita reaction 00 l s to drug Family History Family Member Diagnosis Comments Start Date Stop Date Source Natural father Diabetes [facility] Social History Social Habit Start Date Stop Date Quantity Comments Source History of Tobacco [facility] Gender identity [facility] Sexual orientation [facility] History of Social 2019-03-06 2019-03-[address] function 00:00:00 00:00:00 Hospital Alcohol intake 2018-09-07 2018-09-07 Current [facility] 00:00:00 00:00:00 non-drinker of Hospital alcohol (finding) Tobacco use and 2017-12-01 2017-12-01 Smokeless [facility] exposure 00:00:00 00:00:00 tobacco non-user Hospital Tobacco Comment 2017-01-04 2017-01-04 up to 1ppd x 15 Meth odist 00:00:00 00:00:00 -[facility] years Hospital Sex Assigned At [birth year] [facility] 00:00:00 00:00:00 Hospital Smoking Status Start Date Stop Date Source Never Smoker [facility] Former smoker 2019-03-22 00:00:00 2019-03-22 00:00:00 [facility] Medications Ordered Filled Start Stop Current Ordering Indication Dosage Frequency Signature Comments Components Source Medication Medication Date Date Medication? Clinician (SIG) Name Name Cephalexin Cephalexin 2021- No 1{capsu TID Cephalexin 500 MG 500 MG 01-20 07- le} 500 MG 00:00: 00:00 00 :00 MIRTAZAPINE 2018-07 Yes [id number] TAKE ONE Univers 15 mg 0-13 TABLET BY ity of tablet 00:00: MOUTH AT [address] MIRTAZAPINE 2018-07 Yes [id number] TAKE ONE Univers 15 mg 0-13 TABLET BY ity of tablet 00:00: MOUTH AT [address] MIRTAZAPINE 2018-07 Yes [id number] TAKE ONE Univers 15 mg 0-13 TABLET BY ity of tablet 00:00: MOUTH AT [place] 00 [facility] MIRTAZAPINE 2019-1 Yes [id number] TAKE ONE Univers 15 mg 0-13 TABLET BY ity of tablet 00:00: MOUTH AT [address] rosuvastati 2018- Yes TAKE ONE Me thodi n (CRESTOR) 9-[address] 40 MG 00:00: MOUTH Hospita tablet 00 DAILY l amLODIPine Yes TAKE ONE Met hodi (NORVASC) 5 9-[address] mg tablet 00:00: MOUTH Hospita 00 DAILY l traZODone 2019-0 Yes [id number] TAKE ONE Methodi (DESYREL) 9-[address] 100 MG 00:00: MOUTH Hospita tablet 00 EVERY l NIGHT AT BEDTIME FLUoxetine 2018- Yes TAKE THREE M ethodi (PROzac) 20 9-[address] MG capsule 00:00: BY MOUTH Hos rios 00 DAILY l rosuvastati Yes TAKE ONE Me thodi n (CRESTOR) 9-[address] 40 MG 00:00: MOUTH Hospita tablet 00 DAILY l amLODIPine Yes TAKE ONE Met hodi (NORVASC) 5 9-[address] mg tablet 00:00: MOUTH Hospita 00 DAILY l traZODone 2019-0 Yes [id number] TAKE ONE Method[facility] (DESYREL) 9-[address] 100 MG 00:00: MOUTH Hospita tablet 00 EVERY l NIGHT AT BEDTIME FLUoxetine 2019- Yes TAKE THREE M ethodi (PROzac) 20 9-[address] MG capsule 00:00: BY MOUTH Hos rios 00 DAILY l rosuvastati 2019- Yes TAKE ONE Me thodi n (CRESTOR) 9-[address] 40 MG 00:00: MOUTH Hospita tablet 00 DAILY l amLODIPine 2019- Yes TAKE ONE Met hodi (NORVASC) 5 9-[address] mg tablet 00:00: MOUTH Hospita 00 DAILY l traZODone 2019-0 Yes [id number] TAKE ONE [facility] (DESYREL) 9-[address] 100 MG 00:00: MOUTH Hospita tablet 00 EVERY l NIGHT AT BEDTIME FLUoxetine 2019- Yes TAKE THREE M ethodi (PROzac) 20 9-[address] MG capsule 00:00: BY MOUTH Hos rios 00 DAILY l rosuvastati 2018- Yes TAKE ONE Me thodi n (CRESTOR) 9-[address] 40 MG 00:00: MOUTH Hospita tablet 00 DAILY l amLODIPine Yes TAKE ONE Met hodi (NORVASC) 5 9-[address] mg tablet 00:00: MOUTH Hospita 00 DAILY l traZODone 2019-0 Yes [id number] TAKE ONE [facility] (DESYREL) 9-[address] 100 MG 00:00: MOUTH Hospita tablet 00 EVERY l NIGHT AT BEDTIME FLUoxetine 2018-0 Yes TAKE THREE M ethodi (PROzac) 20 9-[address] MG capsule 00:00: BY MOUTH Hos rios 00 DAILY l rosuvastati Yes TAKE ONE Me thodi n (CRESTOR) 9-[address] 40 MG 00:00: MOUTH Hospita tablet 00 DAILY l amLODIPine Yes TAKE ONE Met hodi (NORVASC) 5 9-[address] mg tablet 00:00: MOUTH Hospita 00 DAILY l traZODone Yes [id number] TAKE ONE [facility] (DESYREL) 9-[address] 100 MG 00:00: MOUTH Hospita tablet 00 EVERY l NIGHT AT BEDTIME FLUoxetine 2019-0 Yes TAKE THREE M ethodi (PROzac) 20 9-[address] MG capsule 00:00: BY MOUTH Hos rios 00 DAILY l Food Yes [id number] 1 bottle Unive rs Supplement, 03-24 with ity of Lactose-[place] 00:00: meals, [place] (ENSURE 00 to three Medica l ACTIVE HIGH bottles Branc h PROTEIN) daily liquid Food Yes [id number] 1 bottle Unive rs Supplement, 03-24 with ity of Lactose-[place] 00:00: meals, [place] (ENSURE 00 to three Medica l ACTIVE HIGH bottles Branc h PROTEIN) daily liquid Food Yes [id number] 1 bottle Unive rs Supplement, 03-24 with ity of Lactose-[place] 00:00: meals, [place] (ENSURE 00 to three Medica l ACTIVE HIGH bottles Branc h PROTEIN) daily liquid Food Yes [id number] 1 bottle Unive rs Supplement, 03-24 with ity of Lactose-[place] 00:00: meals, [place] (ENSURE 00 to three Medica l ACTIVE HIGH bottles Branc h PROTEIN) daily liquid Food Yes [id number] 1 bottle Unive rs Supplement, 03-24 with ity of Lactose-[place] 00:00: meals, [place] (ENSURE 00 to three Medica l ACTIVE HIGH bottles Branc h PROTEIN) daily liquid Food Yes [id number] 1 bottle Unive rs Supplement, 03-24 with ity of Lactose-W[place] 00:00: meals, [place] (ENSURE 00 to three Medica l ACTIVE HIGH bottles Branc h PROTEIN) daily liquid mirtazapine Yes [id number] 15mg Take 1 Univers (REMERON) 03-22 tablet by ity o f 15 mg 00:00: mouth at [facility] 00 bedtime. Medical Branch NaCl 0.9% 2019- No 1000mL at 999 Uni vers (NS) bolus 03-20 09-04 mL/hr, ity of infusion 18:45: 22:01 1,000 mL, [place] as 1,000 mL 00 :00 IV Medical Infusion, Branch ONCE, 1 dose, Mon03/20/19 at 1345, KATARINA omeprazole 2018- Yes 20mg Take 20 mg U nivers 20 mg 03-20 by mouth ity of capsule 17:46: daily. [place] [address] Medical Branch FLUoxetine 2018- Yes 20mg Take 20 mg U nivers 20 mg 04 by mouth ity of capsule 17:46: daily. [place] [address] Medical Branch rosuvastati 2018- Yes 40mg Take 40 mg Univers n 40 mg 03-20 by mouth ity of tablet 17:46: at [place] [address] bedtime. Medical Branch amLODIPine 2018- Yes 5mg Take 5 mg Un tracee 5 mg tablet 03-20 by mouth ity of 17:46: daily. [place] [address] Medical Branch Miscellaneo 2018- Yes [id number] Needs [facility] 03-20 overnight ity of Supply Misc 17:46: pulse ox. [facility] Has Medical shallow Branch breathing at night. Required O2 at night in the past. Has O2 at home but only supposed to use for daytime. Please check overnight pulse ox WITHOUT oxygen use overnight. omeprazole 2018- Yes 20mg Take 20 mg U nivers 20 mg 9-04 by mouth ity of capsule 17:46: daily. [place] [address] Medical Branch FLUoxetine Yes 20mg Take 20 mg U nivers 20 mg 9-04 by mouth ity of capsule 17:46: daily. [place] [address] Medical Branch rosuvastati Yes 40mg Take 40 mg Univers n 40 mg 9-04 by mouth ity of tablet 17:46: at [place] [address] bedtime. Medical Branch amLODIPine 2019-0 Yes 5mg Take 5 mg Un tracee 5 mg tablet 9-04 by mouth ity of 17:46: daily. [place] [address] Medical Branch Miscellaneo Yes [id number] Needs [facility] 9-04 overnight ity of Supply Misc 17:46: pulse ox. [place] Has Medical shallow Branch breathing at night. Required O2 at night in the past. Has O2 at home but only supposed to use for daytime. Please check overnight pulse ox WITHOUT oxygen use overnight. omeprazole Yes 20mg Take 20 mg U nivers 20 mg 9-04 by mouth ity of capsule 17:46: daily. [place] [address] Medical Branch FLUoxetine Yes 20mg Take 20 mg U nivers 20 mg 9-04 by mouth ity of capsule 17:46: daily. [place] [address] Medical Branch rosuvastati Yes 40mg Take 40 mg Univers n 40 mg 9-04 by mouth ity of tablet 17:46: at [place] [address] bedtime. Medical Branch amLODIPine Yes 5mg Take 5 mg Un tracee 5 mg tablet 9-04 by mouth ity of 17:46: daily. [place] [address] Medical [place] Miscellaneo Yes [id number] Needs [facility] 9-04 overnight ity of Supply Misc 17:46: pulse ox. [place] Has Medical shallow Branch breathing at night. Required O2 at night in the past. Has O2 at home but only supposed to use for daytime. Please check overnight pulse ox WITHOUT oxygen use overnight. omeprazole 2019- Yes 20mg Take 20 mg U nivers 20 mg 9-04 by mouth ity of capsule 17:46: daily. [place] [address] Medical Branch FLUoxetine Yes 20mg Take 20 mg U nivers 20 mg 9-04 by mouth ity of capsule 17:46: daily. [address] Branch rosuvastati Yes 40mg Take 40 mg Univers n 40 mg 9-04 by mouth ity of tablet 17:46: at [place] [address] bedtime. Medical Branch amLODIPine Yes 5mg Take 5 mg Un tracee 5 mg tablet 9-04 by mouth ity of 17:46: daily. [place] [address] Medical Branch Miscellaneo Yes [id number] Needs [facility] 9-04 overnight ity of Supply Misc 17:46: pulse ox. [place] Has Medical shallow Branch breathing at night. Required O2 at night in the past. Has O2 at home but only supposed to use for daytime. Please check overnight pulse ox WITHOUT oxygen use overnight. omeprazole Yes 20mg Take 20 mg U nivers 20 mg 9-04 by mouth ity of capsule 17:46: daily. [place] [address] Medical Branch FLUoxetine Yes 20mg Take 20 mg U nivers 20 mg 9-04 by mouth ity of capsule 17:46: daily. [place] [address] Medical Branch rosuvastati Yes 40mg Take 40 mg Univers n 40 mg 9-04 by mouth ity of tablet 17:46: at [place] [address] bedtime. Medical Branch amLODIPine Yes 5mg Take 5 mg Un tracee 5 mg tablet 9-04 by mouth ity of 17:46: daily. [place] [address] Medical Branch Miscellaneo Yes [id number] Needs [facility] -04 overnight ity of Supply Misc 17:46: pulse ox. [place] Has Medical shallow Branch breathing at night. Required O2 at night in the past. Has O2 at home but only supposed to use for daytime. Please check overnight pulse ox WITHOUT oxygen use overnight. omeprazole Yes 20mg Take 20 mg U nivers 20 mg 9-04 by mouth ity of capsule 17:46: daily. [place] [address] Medical Branch FLUoxetine Yes 20mg Take 20 mg U nivers 20 mg 9-04 by mouth ity of capsule 17:46: daily. [place] [address] Medical Branch rosuvastati Yes 40mg Take 40 mg Univers n 40 mg 9-04 by mouth ity of tablet 17:46: at [place] [address] bedtime. Medical Branch amLODIPine Yes 5mg Take 5 mg Un tracee 5 mg tablet 9-04 by mouth ity of 17:46: daily. [place] [address] Medical Branch Miscellaneo 2019-0 Yes [id number] Needs [facility] 9-04 overnight ity of Supply Misc 17:46: pulse ox. [place] Has Medical shallow Branch breathing at night. Required O2 at night in the past. Has O2 at home but only supposed to use for daytime. Please check overnight pulse ox WITHOUT oxygen use overnight. omeprazole 2019-0 Yes 20mg Take 20 mg U nivers 20 mg 9-04 by mouth ity of capsule 17:46: daily. [address] Branch FLUoxetine 2019-0 Yes 20mg Take 20 mg U nivers 20 mg 9-04 by mouth ity of capsule 17:46: daily. [address] rosuvastati 0 Yes 40mg Take 40 mg Univers n 40 mg 9-04 by mouth ity of tablet 17:46: at [place] [address] bedtime. Medical Branch amLODIPine 2019-0 Yes 5mg Take 5 mg Un tracee 5 mg tablet 9-04 by mouth ity of 17:46: daily. [address] Miscellaneo 2018- Yes [id number] Needs [facility] -04 overnight ity of Supply Misc 17:46: pulse ox. [place] Has Medical shallow Branch breathing at night. Required O2 at night in the past. Has O2 at home but only supposed to use for daytime. Please check overnight pulse ox WITHOUT oxygen use overnight. omeprazole 2019-0 Yes 20mg Take 20 mg U nivers 20 mg 9-04 by mouth ity of capsule 17:46: daily. [address] FLUoxetine 2018-0 Yes 20mg Take 20 mg U nivers 20 mg 9-04 by mouth ity of capsule 17:46: daily. [address] rosuvastati 2018-0 Yes 40mg Take 40 mg Univers n 40 mg 9-04 by mouth ity of tablet 17:46: at [place] [address] bedtime. Medical Branch amLODIPine 2019-0 Yes 5mg Take 5 mg Un tracee 5 mg tablet 9-04 by mouth ity of 17:46: daily. [address] Miscellaneo [address] Yes [id number] Needs [facility] 9-04 overnight ity of Supply Misc 17:46: pulse ox. [place] [facility] Has Medical shallow Branch breathing at night. Required O2 at night in the past. Has O2 at home but only supposed to use for daytime. Please check overnight pulse ox WITHOUT oxygen use overnight. omeprazole 2019-0 Yes 20mg Take 20 mg U nivers 20 mg 9-04 by mouth ity of capsule 17:46: daily. [place] [address] Medical Branch FLUoxetine 2019-0 Yes 20mg Take 20 mg U nivers 20 mg 9-04 by mouth ity of capsule 17:46: daily. [address] Branch rosuvastati Yes 40mg Take 40 mg Univers n 40 mg 9-04 by mouth ity of tablet 17:46: at [place] [address] bedtime. Medical Branch amLODIPine 2019-0 Yes 5mg Take 5 mg Un tracee 5 mg tablet 9-04 by mouth ity of 17:46: daily. [place] [address] Medical Branch Miscellaneo Yes [id number] Needs [facility] 9-04 overnight ity of Supply Misc 17:46: pulse ox. [place] [address] Has Medical shallow Branch breathing at night. Required O2 at night in the past. Has O2 at home but only supposed to use for daytime. Please check overnight pulse ox WITHOUT oxygen use overnight. omeprazole 2019- Yes 20mg Take 20 mg U nivers 20 mg 9-04 by mouth ity of capsule 17:46: daily. [place] [address] Medical Branch FLUoxetine Yes 20mg Take 20 mg U nivers 20 mg 9-04 by mouth ity of capsule 17:46: daily. [address] rosuvastati Yes 40mg Take 40 mg Univers n 40 mg 9-04 by mouth ity of tablet 17:46: at [place] [address] bedtime. Medical Branch amLODIPine 2019- Yes 5mg Take 5 mg Un tracee 5 mg tablet 9-04 by mouth ity of 17:46: daily. [place] [address] Medical [place] Miscellaneo Yes [id number] Needs [facility] 9-04 overnight ity of Supply Misc 17:46: pulse ox. [place] Has Medical shallow Branch breathing at night. Required O2 at night in the past. Has O2 at home but only supposed to use for daytime. Please check overnight pulse ox WITHOUT oxygen use overnight. omeprazole 2019-0 Yes 20mg Take 20 mg U nivers 20 mg 9-04 by mouth ity of capsule 17:46: daily. [address] FLUoxetine 2019-0 Yes 20mg Take 20 mg U nivers 20 mg 9-04 by mouth ity of capsule 17:46: daily. [place] 23 Medical Branch rosuvastati Yes 40mg Take 40 mg Univers n 40 mg 9-04 by mouth ity of tablet 17:46: at [place] [address] bedtime. Medical Branch amLODIPine Yes 5mg Take 5 mg Un tracee 5 mg tablet 9-04 by mouth ity of 17:46: daily. [place] [address] Medical Branch Miscellaneo Yes [id number] Needs [facility] -04 overnight ity of Supply Misc 17:46: pulse ox. [place] Has Medical shallow Branch breathing at night. Required O2 at night in the past. Has O2 at home but only supposed to use for daytime. Please check overnight pulse ox WITHOUT oxygen use overnight. omeprazole Yes 20mg Take 20 mg U nivers 20 mg 9-04 by mouth ity of capsule 17:46: daily. [place] [address] Medical Branch FLUoxetine Yes 20mg Take 20 mg U nivers 20 mg 9-04 by mouth ity of capsule 17:46: daily. [place] [address] Medical Branch rosuvastati Yes 40mg Take 40 mg Univers n 40 mg 9-04 by mouth ity of tablet 17:46: at [place] [address] bedtime. Medical Branch amLODIPine Yes 5mg Take 5 mg Un tracee 5 mg tablet 9-04 by mouth ity of 17:46: daily. [place] [address] Medical Branch Miscellaneo Yes [id number] Needs [facility] -04 overnight ity of Supply Misc 17:46: pulse ox. [place] Has Medical shallow Branch breathing at night. Required O2 at night in the past. Has O2 at home but only supposed to use for daytime. Please check overnight pulse ox WITHOUT oxygen use overnight. ciprofloxac 2019- No [id number] 500mg Take 1 Univers in HCl 500 03-06 tablet by ity of mg tablet 00:00: 04:59 mouth [place] 00 :00 every 12 Medical (twelve) Branch hours for 10 days. Saccharomyc 2019- No [id number] 250mg Take 1 Univers es 03-06 capsule by ity of boulardii 00:00: 04:59 [place] 250 [place] 00 :00 (two) Medical capsule times Branch daily for 10 days. ciprofloxac 2019- No [id number] 500mg Take 1 Univers in HCl 500 03-06 tablet by ity of mg tablet 00:00: 04:59 mouth [place] 00 :00 every 12 Medical (twelve) Branch hours for 10 days. Saccharomyc 2019- No [id number] 250mg Take 1 Univers es 03-06 capsule by ity of boulardii 00:00: 04:59 [place] 250 mg 00 :00 (two) Medical capsule times Branch daily for 10 days. ciprofloxac 2019- No [id number] 500mg Take 1 Univers in HCl 500 03-06 tablet by ity of mg tablet 00:00: 04:59 mouth [place] 00 :00 every 12 Medical (twelve) Branch hours for 10 days. Saccharomyc 2018- No [id number] 250mg Take 1 Univers es 03-06 capsule by ity of boulardii 00:00: 04:59 [place] 250 mg 00 :00 (two) Medical capsule times Branch daily for 10 days. phenazopyri 2019- No [id number] 200mg Take 2 Univers dine - 08-25 tablets by ity of (PYRIDIUM) 00:00: 04:59 mouth 3 [place] 100 mg 00 :00 (three) Medical tablet times Branch daily for 3 days. phenazopyri 2019- No [id number] 200mg Take 2 Univers dine - 08-25 tablets by ity of (PYRIDIUM) 00:00: 04:59 mouth 3 [place] 100 mg 00 :00 (three) Medical tablet times Branch daily for 3 days. memantine 2019- No 5mg Take 5 mg Un tracee (NAMENDA) 5 8-11 08-10 by mouth ity of mg tablet 04:00: 00:00 daily. [place] 37 :00 Medical Branch memantine 2019- No 5mg Take 5 mg Un tracee (NAMENDA) 5 8-11 08-10 by mouth ity of mg tablet 04:00: 00:00 daily. [place] 37 :00 Medical Branch memantine 2019- No 5mg Take 5 mg Un tracee (NAMENDA) 5 8-11 08-10 by mouth ity of mg tablet 04:00: 00:00 daily. [place] 37 :00 Medical Branch memantine 2019- 2019- No 5mg Take 5 mg Un tracee (NAMENDA) 5 811 08-10 by mouth ity of mg tablet 04:00: 00:00 daily. [place] 37 :00 Medical Branch omeprazole 2019-0 Yes 20mg Take 20 mg U nivers 20 mg 8-09 by mouth ity of capsule 19:59: daily. [place] [address] Medical Branch FLUoxetine 2019-0 Yes 20mg Take 20 mg U nivers 20 mg 8-09 by mouth ity of capsule 19:59: daily. [place] [address] Medical Branch rosuvastati 0 Yes 40mg Take 40 mg Univers n 40 mg 8-09 by mouth ity of tablet 19:59: at [place] [address] bedtime. Medical Branch amLODIPine 2019-0 Yes 5mg Take 5 mg Un tracee 5 mg tablet 8-09 by mouth ity of 19:59: daily. [place] [address] Medical Branch Miscellaneo 2019- Yes [id number] Needs [facility] 8-09 overnight ity of Supply Misc 19:59: pulse ox. [facility] [address] Has Medical shallow Branch breathing at night. Required O2 at night in the past. Has O2 at home but only supposed to use for daytime. Please check overnight pulse ox WITHOUT oxygen use overnight. omeprazole 2019- Yes 20mg Take 20 mg U nivers 20 mg 8-09 by mouth ity of capsule 19:59: daily. [place] [address] Medical Branch FLUoxetine 2019-0 Yes 20mg Take 20 mg U nivers 20 mg 8-09 by mouth ity of capsule 19:59: daily. [place] [address] Medical Branch rosuvastati 2019-0 Yes 40mg Take 40 mg Univers n 40 mg 8-09 by mouth ity of tablet 19:59: at [place] [address] bedtime. Medical Branch amLODIPine 2019-0 Yes 5mg Take 5 mg Un tracee 5 mg tablet 8-09 by mouth ity of 19:59: daily. [place] [address] Medical Branch Miscellaneo [id number] Yes [id number] Needs [facility] 8-09 overnight ity of Supply Misc 19:59: pulse ox. T ex 42 Has Medical shallow Branch breathing at night. Required O2 at night in the past. Has O2 at home but only supposed to use for daytime. Please check overnight pulse ox WITHOUT oxygen use overnight. omeprazole 2019-0 Yes 20mg Take 20 mg U nivers 20 mg 8-09 by mouth ity of capsule 19:59: daily. [place] [address] Medical Branch FLUoxetine 2019-0 Yes 20mg Take 20 mg U nivers 20 mg 8-09 by mouth ity of capsule 19:59: daily. [place] [address] Medical Branch rosuvastati [id number] Yes 40mg Take 40 mg Univers n 40 mg 8-09 by mouth ity of tablet 19:59: at [place] [address] bedtime. Medical Branch amLODIPine 2019-0 Yes 5mg Take 5 mg Un tracee 5 mg tablet 8-09 by mouth ity of 19:59: daily. [place] [address] Medical Branch Miscellaneo 2019- Yes [id number] Needs [facility] 8-09 overnight ity of Supply Misc 19:59: pulse ox. [place] n[place] 42 Has Medical shallow Branch breathing at night. Required O2 at night in the past. Has O2 at home but only supposed to use for daytime. Please check overnight pulse ox WITHOUT oxygen use overnight. omeprazole 2019-0 Yes 20mg Take 20 mg U nivers 20 mg 8-09 by mouth ity of capsule 19:59: daily. [place] [address] Medical Branch FLUoxetine Yes 20mg Take 20 mg U nivers 20 mg 8-09 by mouth ity of capsule 19:59: daily. [address] rosuvastati Yes 40mg Take 40 mg Univers n 40 mg 8-09 by mouth ity of tablet 19:59: at [place] [address] bedtime. Medical Branch amLODIPine 2019-0 Yes 5mg Take 5 mg Un tracee 5 mg tablet 8-09 by mouth ity of 19:59: daily. [place] [address] Medical Branch Miscellaneo 2019- Yes [id number] Needs [facility] 8-09 overnight ity of Supply Misc 19:59: pulse ox. [place] n[place] 42 Has Medical shallow Branch breathing at night. Required O2 at night in the past. Has O2 at home but only supposed to use for daytime. Please check overnight pulse ox WITHOUT oxygen use overnight. omeprazole 2019-0 Yes 20mg Take 20 mg U nivers 20 mg 8-09 by mouth ity of capsule 19:59: daily. [address] Branch FLUoxetine 2019-0 Yes 20mg Take 20 mg U nivers 20 mg 8-09 by mouth ity of capsule 19:59: daily. [place] 42 Medical Branch rosuvastati 2019- Yes 40mg Take 40 mg Univers n 40 mg 8-09 by mouth ity of tablet 19:59: at [place] [address] bedtime. Medical Branch amLODIPine 2019-0 Yes 5mg Take 5 mg Un tracee 5 mg tablet 8-09 by mouth ity of 19:59: daily. [place] [address] Medical Branch Miscellaneo 2019-0 Yes [id number] Needs [facility] Medical 8-09 overnight ity of Supply Misc 19:59: pulse ox. Jasson Lieberman Has Medical shallow Branch breathing at night. Required O2 at night in the past. Has O2 at home but only supposed to use for daytime. Please check overnight pulse ox WITHOUT oxygen use overnight. omeprazole 2019- Yes 20mg Take 20 mg U nivers 20 mg 8-09 by mouth ity of capsule 19:59: daily. [place] [address] Medical Branch FLUoxetine 0 Yes 20mg Take 20 mg U nivers 20 mg 8-09 by mouth ity of capsule 19:59: daily. [place] [address] Medical Branch rosuvastati Yes 40mg Take 40 mg Univers n 40 mg 8-09 by mouth ity of tablet 19:59: at [place] [address] bedtime. Medical Branch amLODIPine 2018- Yes 5mg Take 5 mg Un tracee 5 mg tablet 8-09 by mouth ity of 19:59: daily. [place] [address] Medical Branch Miscellaneo Yes [id number] Needs [facility] 8-09 overnight ity of Supply Misc 19:59: pulse ox. Jasson Lieberman Has Medical shallow Branch breathing at night. Required O2 at night in the past. Has O2 at home but only supposed to use for daytime. Please check overnight pulse ox WITHOUT oxygen use overnight. omeprazole 2019-0 Yes 20mg Take 20 mg U nivers 20 mg 8-09 by mouth ity of capsule 19:59: daily. [place] [address] Medical Branch FLUoxetine 2019-0 Yes 20mg Take 20 mg U nivers 20 mg 8-09 by mouth ity of capsule 19:59: daily. [place] [address] Medical Branch rosuvastati 2019-0 Yes 40mg Take 40 mg Univers n 40 mg 8-09 by mouth ity of tablet 19:59: at [place] [address] bedtime. Medical Branch amLODIPine 2019-0 Yes 5mg Take 5 mg Un tracee 5 mg tablet 8-09 by mouth ity of 19:59: daily. [place] [address] Medical Branch Miscellaneo 2019- Yes [id number] Needs [facility] 8- overnight ity of Supply Misc 19:59: pulse ox. Jasson Lieberman Has Medical shallow Branch breathing at night. Required O2 at night in the past. Has O2 at home but only supposed to use for daytime. Please check overnight pulse ox WITHOUT oxygen use overnight. omeprazole 2019- Yes 20mg Take 20 mg U nivers 20 mg 8-09 by mouth ity of capsule 19:59: daily. [place] [address] Medical Branch FLUoxetine 2019-0 Yes 20mg Take 20 mg U nivers 20 mg 8-09 by mouth ity of capsule 19:59: daily. [place] [address] Medical Branch rosuvastati 2019- Yes 40mg Take 40 mg Univers n 40 mg 8-09 by mouth ity of tablet 19:59: at [place] [address] bedtime. Medical Branch amLODIPine Yes 5mg Take 5 mg Un tracee 5 mg tablet 8-09 by mouth ity of 19:59: daily. [address] Branch Miscellaneo 2019 Yes [id number] Needs [facility] 8-09 overnight ity of Supply Misc 19:59: pulse ox. Jasson Lieberman Has Medical shallow Branch breathing at night. Required O2 at night in the past. Has O2 at home but only supposed to use for daytime. Please check overnight pulse ox WITHOUT oxygen use overnight. ondansetron 2019-0 Yes [id number] 4mg Take 1 Univers 4 mg tablet 8-09 tablet by ity of 00:00: mouth [place] 00 every 6 Medical (six) Branch hours as needed for Nausea and Vomiting (N/V). ondansetron 2019-0 Yes [id number] 4mg Take 1 Univers 4 mg tablet 8-09 tablet by ity of 00:00: mouth [place] 00 every 6 Medical (six) Branch hours as needed for Nausea and Vomiting (N/V). ondansetron 2019-0 Yes [id number] 4mg Take 1 Univers 4 mg tablet 8-09 tablet by ity of 00:00: mouth [place] 00 every 6 Medical (six) Branch hours as needed for Nausea and Vomiting (N/V). ondansetron 2019-0 Yes [id number] 4mg Take 1 Univers 4 mg tablet 8-09 tablet by ity of 00:00: mouth [place] 00 every 6 Medical (six) Branch hours as needed for Nausea and Vomiting (N/V). ondansetron 2019-0 Yes [id number] 4mg Take 1 Univers 4 mg tablet 8-09 tablet by ity of 00:00: mouth [place] 00 every 6 Medical (six) Branch hours as needed for Nausea and Vomiting (N/V). ondansetron 2019-0 Yes [id number] 4mg Take 1 Univers 4 mg tablet 8-09 tablet by ity of 00:00: mouth [place] 00 every 6 Medical (six) Branch hours as needed for Nausea and Vomiting (N/V). ondansetron 2019-0 Yes [id number] 4mg Take 1 Univers 4 mg tablet 8-09 tablet by ity of 00:00: mouth [place] 00 every 6 Medical (six) Branch hours as needed for Nausea and Vomiting (N/V). ondansetron 2019-0 Yes [id number] 4mg Take 1 Univers 4 mg tablet 8-09 tablet by ity of 00:00: mouth [place] 00 every 6 Medical (six) Branch hours as needed for Nausea and Vomiting (N/V). ondansetron 2019-0 Yes [id number] 4mg Take 1 Univers 4 mg tablet 8-09 tablet by ity of 00:00: mouth [place] 00 every 6 Medical (six) Branch hours as needed for Nausea and Vomiting (N/V). ondansetron 2019-0 Yes [id number] 4mg Take 1 Univers 4 mg tablet 8-09 tablet by ity of 00:00: mouth [place] 00 every 6 Medical (six) Branch hours as needed for Nausea and Vomiting (N/V). ondansetron 2019-0 Yes [id number] 4mg Take 1 Univers 4 mg tablet 8-09 tablet by ity of 00:00: mouth [place] 00 every 6 Medical (six) Branch hours as needed for Nausea and Vomiting (N/V). ondansetron 2019-0 Yes [id number] 4mg Take 1 Univers 4 mg tablet 8-09 tablet by ity of 00:00: mouth [place] 00 every 6 Medical (six) Branch hours as needed for Nausea and Vomiting (N/V). ondansetron 2019-0 Yes [id number] 4mg Take 1 Univers 4 mg tablet 8-09 tablet by ity of 00:00: mouth [place] 00 every 6 Medical (six) Branch hours as needed for Nausea and Vomiting (N/V). ondansetron 2019-0 Yes [id number] 4mg Take 1 Univers 4 mg tablet 8-09 tablet by ity of 00:00: mouth [place] 00 every 6 Medical (six) Branch hours as needed for Nausea and Vomiting (N/V). ondansetron 2019-0 Yes [id number] 4mg Take 1 Univers 4 mg tablet 8-09 tablet by ity of 00:00: mouth [place] 00 every 6 Medical (six) Branch hours as needed for Nausea and Vomiting (N/V). ondansetron 2019-0 Yes [id number] 4mg Take 1 Univers 4 mg tablet 8-09 tablet by ity of 00:00: mouth [place] 00 every 6 Medical (six) Branch hours as needed for Nausea and Vomiting (N/V). ondansetron 2019-0 Yes [id number] 4mg Take 1 Univers 4 mg tablet 8-09 tablet by ity of 00:00: mouth [place] 00 every 6 Medical (six) Branch hours as needed for Nausea and Vomiting (N/V). ondansetron 2019-0 Yes [id number] 4mg Take 1 Univers 4 mg tablet 8-09 tablet by ity of 00:00: mouth [place] 00 every 6 Medical (six) Branch hours as needed for Nausea and Vomiting (N/V). omeprazole 2019-0 Yes 20mg Take 20 mg U nivers 20 mg 5-09 by mouth ity of capsule 20:43: daily. [place] [address] Medical Branch FLUoxetine 2019-0 Yes 20mg Take 20 mg U nivers 20 mg 5-09 by mouth ity of capsule 20:43: daily. [place] [address] Medical Branch rosuvastati 2019-0 Yes 40mg Take 40 mg Univers n 40 mg 5-09 by mouth ity of tablet 20:43: at [place] [address] bedtime. Medical Branch amLODIPine 2019-0 Yes 5mg Take 5 mg Un tracee 5 mg tablet 5-09 by mouth ity of 20:43: daily. [place] [address] Medical Branch memantine 2019-0 Yes 5mg Take 5 mg Uni vers (NAMENDA) 5 5-09 by mouth ity of mg tablet 20:43: daily. [place] [address] Medical Branch Miscellaneo 2019-0 Yes [id number] Needs [facility] Medical 5-09 overnight ity of Supply Misc 20:43: pulse ox. T exnaomy 06 Has Medical shallow Branch breathing at night. Required O2 at night in the past. Has O2 at home but only supposed to use for daytime. Please check overnight pulse ox WITHOUT oxygen use overnight. traZODONE 2019-0 Yes [id number] 100mg Take 1 U nivers 100 mg 3-27 tablet by ity of tablet 00:00: mouth at [place] [address] bedtime. Medical Branch traZODONE 2018-0 Yes [id number] 100mg Take 1 U nivers 100 mg 3-27 tablet by ity of tablet 00:00: mouth at [place] [address] bedtime. Medical Branch traZODONE 2018-0 Yes [id number] 100mg Take 1 U nivers 100 mg 3-27 tablet by ity of tablet 00:00: mouth at [place] [address] bedtime. Medical Branch traZODONE 2018-0 Yes [id number] 100mg Take 1 U nivers 100 mg 3-27 tablet by ity of tablet 00:00: mouth at [place] [address] bedtime. Medical Branch traZODONE 2018-0 Yes [id number] 100mg Take 1 U nivers 100 mg 3-27 tablet by ity of tablet 00:00: mouth at [place] [address] bedtime. Medical Branch traZODONE 2018-0 Yes [id number] 100mg Take 1 U nivers 100 mg 3-27 tablet by ity of tablet 00:00: mouth at [place] [address] bedtime. Medical Branch traZODONE 2018-0 Yes [id number] 100mg Take 1 U nivers 100 mg 3-27 tablet by ity of tablet 00:00: mouth at [place] [address] bedtime. Medical Branch traZODONE 2019-0 Yes [id number] 100mg Take 1 U nivers 100 mg 3-27 tablet by ity of tablet 00:00: mouth at [place] [address] bedtime. Medical Branch traZODONE 2018-0 Yes [id number] 100mg Take 1 U nivers 100 mg 3-27 tablet by ity of tablet 00:00: mouth at [place] [address] bedtime. Medical Branch traZODONE 2019-0 Yes [id number] 100mg Take 1 U nivers 100 mg 3-27 tablet by ity of tablet 00:00: mouth at [place] [address] bedtime. Medical Branch traZODONE 2018-0 Yes [id number] 100mg Take 1 U nivers 100 mg 3-27 tablet by ity of tablet 00:00: mouth at [place] [address] bedtime. [facility] Branch traZODONE 2019-0 Yes [id number] 100mg Take 1 U nivers 100 mg 3-27 tablet by ity of tablet 00:00: mouth at [place] [address] bedtime. [facility] Branch traZODONE 2018-0 Yes [id number] 100mg Take 1 U nivers 100 mg 3-27 tablet by ity of tablet 00:00: mouth at [place] [address] bedtime. [facility] Branch traZODONE 2018-0 Yes [id number] 100mg Take 1 U nivers 100 mg 3-27 tablet by ity of tablet 00:00: mouth at [place] [address] bedtime. [facility] Branch traZODONE 2018-0 Yes [id number] 100mg Take 1 U nivers 100 mg 3-27 tablet by ity of tablet 00:00: mouth at [place] [address] bedtime. [facility] Branch traZODONE 2018-0 Yes [id number] 100mg Take 1 U nivers 100 mg 3-27 tablet by ity of tablet 00:00: mouth at [place] [address] bedtime. [facility] Branch traZODONE 2018-0 Yes [id number] 100mg Take 1 U nivers 100 mg 3-27 tablet by ity of tablet 00:00: mouth at [place] [address] bedtime. [facility] Branch traZODONE 2018-0 Yes [id number] 100mg Take 1 U nivers 100 mg 3-27 tablet by ity of tablet 00:00: mouth at [place] [address] bedtime. [facility] traZODONE 0 Yes [id number] 100mg Take 1 U nivers 100 mg 3-27 tablet by ity of tablet 00:00: mouth at [place] [address] bedtime. [facility] Branch traZODONE 2018-0 Yes [id number] 100mg Take 1 U nivers 100 mg 3-27 tablet by ity of tablet 00:00: mouth at [place] [address] bedtime. [facility] Branch traZODONE 2018-0 Yes [id number] 100mg Take 1 U nivers 100 mg 3-27 tablet by ity of tablet 00:00: mouth at [place] [address] bedtime. [facility] Branch dexlansopra 2019-0 Yes 30mg QD Take 1 [facility] zole 2-[address] (DEXILANT) 00:00: (30 mg Hospi ta 30 mg 00 total) by l capsule mouth daily. dexlansopra 2018-0 Yes 30mg QD Take 1 [facility] zole 2-[address] (DEXILANT) 00:00: (30 mg Hospi ta 30 mg 00 total) by l capsule mouth daily. dexlansopra 2019-0 Yes 30mg QD Take 1 [facility] zole 2-[address] (DEXILANT) 00:00: (30 mg Hospi ta 30 mg 00 total) by l capsule mouth daily. dexlansopra 2018-0 Yes 30mg QD Take 1 [facility] zole 2-[address] (DEXILANT) 00:00: (30 mg Hospi ta 30 mg 00 total) by l capsule mouth daily. dexlansopra 2018-0 Yes 30mg QD Take 1 Meth nelson [...] a 00 total) by l mouth daily. Donepezil Donepezil No 1{table QD Donepezil HCl 10 MG HCl 10 MG t_at_be HCl 10 MG dtime} Carvedilol Carvedilol No 1{table BID Carvedilol 3.125 MG 3.125 MG t_with_ 3.125 MG food} Lisinopril Lisinopril No 1{table QD Lisinopril 10 MG 10 MG t} 10 MG Mirtazapine Mirtazapine No 1{table QD Mirtazapin 15 MG 15 MG t_at_be e 15 MG dtime} Rosuvastati Rosuvastati No 1{table QD Rosuvastat n Calcium n Calcium t} in Calcium 40 MG 40 MG 40 MG Cefdinir Cefdinir No BID Cefdinir 300 MG 300 MG 300 MG Lisinopril Lisinopril No 1{table QD Lisinopril 10 MG 10 MG t} 10 MG Cefdinir Cefdinir No BID Cefdinir 300 MG 300 MG 300 MG Donepezil Donepezil No 1{table QD Donepezil HCl 10 MG HCl 10 MG t_at_be HCl 10 MG dtime} Rosuvastati Rosuvastati No 1{table QD Rosuvastat n Calcium n Calcium t} in Calcium 40 MG 40 MG 40 MG Mirtazapine Mirtazapine No 1{table QD Mirtazapin 15 MG 15 MG t_at_be e 15 MG dtime} Carvedilol Carvedilol No 1{table BID Carvedilol 3.125 MG 3.125 MG t_with_ 3.125 MG food} Immunizations Ordered Immunization Filled Immunization Date Status Commen ts Source Name Name MILO COVID-19 MRNA 2020-08-13 Completed Meth odist VACCINATION 00:00:00 [facility] PFIZER COVID-19 MRNA 2020-08-13 Completed Meth odist VACCINATION 00:00:00 [facility] PFIZER COVID-19 MRNA 2020-08-13 Completed Meth odist VACCINATION 00:00:00 [facility] PFIZER COVID-19 MRNA 2020-08-13 Completed Meth odist VACCINATION 00:00:00 [facility] PFIZER COVID-19 MRNA 2020-08-13 Completed Meth odist VACCINATION 00:00:00 [facility] PFIZER COVID-19 MRNA 2020-07-23 Completed Meth odist VACCINATION 00:00:00 [facility] PFIZER COVID-19 MRNA 2020-07-23 Completed Meth odist VACCINATION 00:00:00 [facility] PFIZER COVID-19 MRNA 2020-07-23 Completed Meth odist VACCINATION 00:00:00 [facility] PFIZER COVID-19 MRNA 2020-07-23 Completed Meth odist VACCINATION 00:00:00 [facility] PFIZER COVID-19 MRNA 2020-07-23 Completed Meth odist VACCINATION 00:00:00 [facility] Influenza Trivalent 2018-03-07 Completed Metho dist 00:00:00 Hospital Influenza Trivalent 2018-03-07 Completed [facility] dist 00:00:00 Hospital Influenza Trivalent 2018-03-07 Completed Metho dist 00:00:00 Hospital Influenza Trivalent 2018-03-07 Completed Metho dist 00:00:00 [facility] Influenza Virus 2018-03-07 Completed Universit y of Vaccine (3+ yrs) 00:00:00 [facility] Influenza Virus 2018-03-07 Completed Universit y of Vaccine (3+ yrs) 00:00:00 [facility] Influenza Virus 2018-03-07 Completed Universit y of Vaccine (3+ yrs) 00:00:00 [facility] Influenza Virus 2018-03-07 Completed Universit y of Vaccine (3+ yrs) 00:00:00 [facility] Influenza Virus 2018-03-07 Completed Universit y of Vaccine (3+ yrs) 00:00:00 [facility] Influenza Virus 2018-03-07 Completed Universit y of Vaccine (3+ yrs) 00:00:00 [facility] Influenza Virus 2018-03-07 Completed Universit y of Vaccine (3+ yrs) 00:00:00 [facility] Influenza Virus 2018-03-07 Completed Universit y of Vaccine (3+ yrs) 00:00:00 [facility] Influenza Virus 2018-03-07 Completed Universit y of Vaccine (3+ yrs) 00:00:00 [facility] Influenza Virus 2018-03-07 Completed Universit y of Vaccine (3+ yrs) 00:00:00 [facility] Influenza Virus 2018-03-07 Completed Universit y of Vaccine (3+ yrs) 00:00:00 [facility] Influenza Virus 2018-03-07 Completed Universit y of Vaccine (3+ yrs) 00:00:00 [facility] Influenza Virus 2018-03-07 Completed Universit y of Vaccine (3+ yrs) 00:00:00 [facility] Influenza Virus 2018-03-07 Completed Universit y of Vaccine (3+ yrs) 00:00:00 [facility] Influenza Virus 2018-03-07 Completed Universit y of Vaccine (3+ yrs) 00:00:00 [facility] Influenza Virus 2018-03-07 Completed Universit y of Vaccine (3+ yrs) 00:00:00 [facility] Influenza Virus 2018-03-07 Completed Universit y of Vaccine (3+ yrs) 00:00:00 [facility] Influenza Virus 2018-03-07 Completed Universit y of Vaccine (3+ yrs) 00:00:00 [facility] Influenza Virus 2018-03-07 Completed Universit y of Vaccine (3+ yrs) 00:00:00 [facility] Influenza Virus 2018-03-07 Completed Universit y of Vaccine (3+ yrs) 00:00:00 [facility] Influenza Virus 2018-03-07 Completed Universit y of Vaccine (3+ yrs) 00:00:00 [facility] Influenza Trivalent 2018-03-07 Completed Metho dist 00:00:00 Hospital FLUZONE HIGH-DOSE PF 2017-06-02 Completed Meth odist 00:00:00 Hospital FLUZONE HIGH-DOSE PF 2017-06-02 Completed Meth odist 00:00:00 Hospital FLUZONE HIGH-DOSE PF 2017-06-02 Completed Meth odist 00:00:00 Hospital FLUZONE HIGH-DOSE PF 2017-06-02 Completed Meth odist 00:00:00 [facility] Influenza High Dose 2017-06-02 Completed Unive rsity of 00:00:00 [facility] Influenza High Dose 2017-06-02 Completed Unive rsity of 00:00:00 [facility] Influenza High Dose 2017-06-02 Completed Unive rsity of 00:00:00 [facility] Influenza High Dose 2017-06-02 Completed Unive rsity of 00:00:00 [facility] Influenza High Dose 2017-06-02 Completed Unive rsity of 00:00:00 [facility] Influenza High Dose 2017-06-02 Completed Unive rsity of 00:00:00 [facility] Influenza High Dose 2017-06-02 Completed Unive rsity of 00:00:00 [facility] Influenza High Dose 2017-06-02 Completed Unive rsity of 00:00:00 [facility] Influenza High Dose 2017-06-02 Completed Unive rsity of 00:00:00 [facility] Influenza High Dose 2017-06-02 Completed Unive rsity of 00:00:00 [facility] Influenza High Dose 2017-06-02 Completed Unive rsity of 00:00:00 [facility] Influenza High Dose 2017-06-02 Completed Unive rsity of 00:00:00 [facility] Influenza High Dose 2017-06-02 Completed Unive rsity of 00:00:00 [facility] Influenza High Dose 2017-06-02 Completed Unive rsity of 00:00:00 [facility] Influenza High Dose 2017-06-02 Completed Unive rsity of 00:00:00 [facility] Influenza High Dose 2017-06-02 Completed Unive rsity of 00:00:00 [facility] Influenza High Dose 2017-06-02 Completed Unive rsity of 00:00:00 [facility] Influenza High Dose 2017-06-02 Completed Unive rsity of 00:00:00 [facility] Influenza High Dose 2017-06-02 Completed Unive rsity of 00:00:00 [facility] Influenza High Dose 2017-06-02 Completed Unive rsity of 00:00:00 [facility] Influenza High Dose 2017-06-02 Completed Unive rsity of 00:00:00 [facility] FLUZONE HIGH-DOSE PF 2017-06-02 Completed Meth odist 00:00:00 [facility] Pneumococcal 2015-10-22 Completed [facility] Conjugate 13-Valent 00:00:00 Hospi olive Pneumococcal 2015-10-22 Completed [facility] Conjugate 13-Valent 00:00:00 [facility]pi olive Pneumococcal 2015-10-22 Completed [facility] Conjugate 13-Valent 00:00:00 [facility]pi olive Pneumococcal 2015-10-22 Completed [facility] Conjugate 13-Valent 00:00:00 Hospi olive Pneumococcal 13 2015-10-22 Completed Universit y of [...] dical (Prevnar 13) Branch Pneumococcal 2015-10-22 Completed [facility] Conjugate 13-Valent 00:00:00 Hospi olive Td 2011-01-13 Completed [facility] 00:00:00 Hospital Td 2011-01-13 Completed [facility] 00:00:00 Hospital Td 2011-01-13 Completed Y[facility]anism 00:00:00 [facility] Td 2011-01-13 Completed Yarsanism 00:00:00 [facility] Tetanus/Diptheria 2011-01-13 Completed Univers ity of 00:00:00 [facility] Branch Tetanus/Diptheria 2011-01-13 Completed Univers ity of 00:00:00 [facility] Branch Tetanus/Diptheria 2011-01-13 Completed Univers ity of 00:00:00 [facility] Branch Tetanus/Diptheria 2011-01-13 Completed Univers ity of 00:00:00 [facility] Branch Tetanus/Diptheria 2011-01-13 Completed Univers ity of 00:00:00 [facility] Branch Tetanus/Diptheria 2011-01-13 Completed Univers ity of 00:00:00 [facility] Tetanus/Diptheria 2011-01-13 Completed Univers ity of 00:00:00 [facility] Branch Tetanus/Diptheria 2011-01-13 Completed Univers ity of 00:00:00 [facility] Tetanus/Diptheria 2011-01-13 Completed Univers ity of 00:00:00 [facility] Tetanus/Diptheria 2011-01-13 Completed Univers ity of 00:00:00 [facility] Branch Tetanus/Diptheria 2011-01-13 Completed Univers ity of 00:00:00 [facility] Tetanus/Diptheria 2011-01-13 Completed Univers ity of 00:00:00 [facility] Branch Tetanus/Diptheria 2011-01-13 Completed Univers ity of 00:00:00 [facility] Tetanus/Diptheria 2011-01-13 Completed Univers ity of 00:00:00 [facility] Tetanus/Diptheria 2011-01-13 Completed Univers ity of 00:00:00 [facility] Branch Tetanus/Diptheria 2011-01-13 Completed Univers ity of 00:00:00 [facility] Branch Tetanus/Diptheria 2011-01-13 Completed Univers ity of 00:00:00 [facility] Tetanus/Diptheria 2011-01-13 Completed Univers ity of 00:00:00 [facility] Branch Tetanus/Diptheria 2011-01-13 Completed Univers ity of 00:00:00 [facility] Tetanus/Diptheria 2011-01-13 Completed Univers ity of 00:00:00 [facility] Tetanus/Diptheria 2011-01-13 Completed Univers ity of 00:00:00 [facility] Td 2011-01-13 Completed [facility] 00:00:00 Hospital Influenza Trivalent 2008-04-25 Completed [facility] dist 00:00:00 Hospital Pneumococcal 2008-04-25 Completed [facility] Polysaccharide 00:00:00 Hospital Influenza Trivalent 2008-04-25 Completed [facility] 00:[facility]:00 Hospital Pneumococcal 2008-04-25 Completed [facility] Polysaccharide 00:00:00 Hospital Influenza Trivalent 2008-04-25 Completed [facility] 00:00:00 Hospital Pneumococcal 2008-04-25 Completed [facility] Polysaccharide 00:00:00 Hospital Influenza Trivalent 2008-04-25 Completed [facility] 00:00:00 Hospital Pneumococcal 2008-04-25 Completed [facility] Polysaccharide 00:00:00 Hospital Influenza Virus 2008-04-25 Completed Universit y of Vaccine (3+ yrs) 00:00:00 [facility] Pneumococcal 2008-04-25 Completed University o f Polysaccharide, 00:00:00 [place] [facility] PPSV23 (PNEUMOVAX) Branch Influenza Virus 2008-04-25 Completed Universit y of Vaccine (3+ yrs) 00:00:00 [facility] Pneumococcal 2008-04-25 Completed University o f Polysaccharide, 00:00:00 [place] [facility] PPSV23 (PNEUMOVAX) Branch Influenza Virus 2008-04-25 Completed Universit y of Vaccine (3+ yrs) 00:00:00 [facility] Pneumococcal 2008-04-25 Completed University o f Polysaccharide, 00:00:00 [place] [facility] PPSV23 (PNEUMOVAX) Branch Influenza Virus 2008-04-25 Completed Universit y of Vaccine (3+ yrs) 00:00:00 [facility] Pneumococcal 2008-04-25 Completed University o f Polysaccharide, 00:00:00 [place] [facility] PPSV23 (PNEUMOVAX) Branch Influenza Virus 2008-04-25 Completed Universit y of Vaccine (3+ yrs) 00:00:00 [facility] Pneumococcal 2008-04-25 Completed University o f Polysaccharide, 00:00:00 [place] [facility] PPSV23 (PNEUMOVAX) Branch Influenza Virus 2008-04-25 Completed Universit y of Vaccine (3+ yrs) 00:00:00 [facility] dical Branch Pneumococcal 2008-04-25 Completed University o f Polysaccharide, 00:00:00 [place] [facility] PPSV23 (PNEUMOVAX) Branch Influenza Virus 2008-04-25 Completed Universit y of Vaccine (3+ yrs) 00:00:00 [facility] Influenza Virus 2008-04-25 Completed Universit y of Vaccine (3+ yrs) 00:00:00 [facility] dical Branch Pneumococcal 2008-04-25 Completed University o f Polysaccharide, 00:00:00 [place] [facility] PPSV23 (PNEUMOVAX) Branch Pneumococcal 2008-04-25 Completed University o f Polysaccharide, 00:00:00 [place] [facility] PPSV23 (PNEUMOVAX) Branch Influenza Virus 2008-04-25 Completed Universit y of Vaccine (3+ yrs) 00:00:00 [facility] Pneumococcal 2008-04-25 Completed University o f Polysaccharide, 00:00:00 [place] [facility] PPSV23 (PNEUMOVAX) Branch Influenza Virus 2008-04-25 Completed Universit y of Vaccine (3+ yrs) 00:00:00 [facility] Pneumococcal 2008-04-25 Completed University o f Polysaccharide, 00:00:00 [place] [facility] PPSV23 (PNEUMOVAX) Branch Influenza Virus 2008-04-25 Completed Universit y of Vaccine (3+ yrs) 00:00:00 [facility] Pneumococcal 2008-04-25 Completed University o f Polysaccharide, 00:00:00 [place] [facility] PPSV23 (PNEUMOVAX) Branch Influenza Virus 2008-04-25 Completed Universit y of Vaccine (3+ yrs) 00:00:00 [facility] Pneumococcal 2008-04-25 Completed University o f Polysaccharide, 00:00:00 [place] [facility] PPSV23 (PNEUMOVAX) Branch Influenza Virus 2008-04-25 Completed Universit y of Vaccine (3+ yrs) 00:00:00 [facility] Pneumococcal 2008-04-25 Completed University o f Polysaccharide, 00:00:00 [place] [facility] PPSV23 (PNEUMOVAX) Branch Influenza Virus 2008-04-25 Completed Universit y of Vaccine (3+ yrs) 00:00:00 [facility] Pneumococcal 2008-04-25 Completed University o f Polysaccharide, 00:00:00 [place] [facility] PPSV23 (PNEUMOVAX) Branch Influenza Virus 2008-04-25 Completed Universit y of Vaccine (3+ yrs) 00:00:00 [place] [facility] Pneumococcal 2008-04-25 Completed University o f Polysaccharide, 00:00:00 [place] [facility] PPSV23 (PNEUMOVAX) Branch Influenza Virus 2008-04-25 Completed Universit y of Vaccine (3+ yrs) 00:00:00 [place] [facility] Pneumococcal 2008-04-25 Completed University o f Polysaccharide, 00:00:00 [place] [facility] PPSV23 (PNEUMOVAX) Branch Influenza Virus 2008-04-25 Completed Universit y of Vaccine (3+ yrs) 00:00:00 [place] [facility] Pneumococcal 2008-04-25 Completed University o f Polysaccharide, 00:00:00 [place] [facility] PPSV23 (PNEUMOVAX) Branch Influenza Virus 2008-04-25 Completed Universit y of Vaccine (3+ yrs) 00:00:00 [facility] dical Branch Influenza Virus 2008-04-25 Completed Universit y of Vaccine (3+ yrs) 00:00:00 [facility] dical Branch Pneumococcal 2008-04-25 Completed University o f Polysaccharide, 00:00:00 [place] [facility] PPSV23 (PNEUMOVAX) Branch Pneumococcal 2008-04-25 Completed University o f Polysaccharide, 00:00:00 [place] [facility] PPSV23 (PNEUMOVAX) Branch Influenza Virus 2008-04-25 Completed Universit y of Vaccine (3+ yrs) 00:00:00 [facility] dical Branch Pneumococcal 2008-04-25 Completed University o f Polysaccharide, 00:00:00 [place] [facility] PPSV23 (PNEUMOVAX) Branch Influenza Virus 2008-04-25 Completed Universit y of Vaccine (3+ yrs) 00:00:00 [facility] dical Branch Pneumococcal 2008-04-25 Completed University o f Polysaccharide, 00:00:00 [facility] ical PPSV23 (PNEUMOVAX) Branch Influenza Trivalent 2008-04-25 Completed [facility] 00:00:00 Hospital Pneumococcal 2008-04-25 Completed [facility] Polysaccharide 00:00:00 Hospital Vital Signs Vital Name Observation Time Observation Value Comments Source height 2022-01-13 14:00:00 61 [in_i] Common [facility] weight 2022-01-13 14:00:00 107.2 [lb_av] Common [facility] temperature 2022-01-13 14:00:00 97 [degF] Common [facility] bmi 2022-01-13 14:00:00 20.25 kg/m2 [facility] oximetry 2022-01-13 14:00:00 97 % Common [facility] respiratory rate 2022-01-13 14:00:00 16 /min Comm on [facility] Systolic blood 2019-03-20 22:00:00 134 mm[Hg] Univer sity of [facility] Diastolic blood 2019-03-20 22:00:00 53 mm[Hg] Unive rsity of [facility] Heart rate 2019-03-20 22:00:00 67 /min Universi ty [facility] Respiratory rate 2019-03-20 22:00:00 16 /min Univ ersity of [facility] Oxygen saturation in 2019-03-20 22:00:00 94 /min University of Arterial blood by [facility] Branch Body height 2019-03-20 20:05:48 154.9 cm Universi ty [facility] Body temperature 2019-03-20 18:43:00 36.72 Radha [facility] ersity of [facility] Body weight 2019-03-20 18:43:00 50.803 [facility] BMI 2019-03-20 18:43:00 21.16 kg/m2 [facility] Systolic blood 2019-03-20 17:43:00 129 mm[Hg] Univer sity of [facility] Diastolic blood 2019-03-20 17:43:00 70 mm[Hg] Unive rsity of [facility] Heart rate 2019-03-20 17:43:00 75 /min Universi ty [facility] Body temperature 2019-03-20 17:43:00 36.94 Radha Univ ersity of [place] [facility] Respiratory rate 2019-03-20 17:43:00 18 /min Univ ersity [facility] Oxygen saturation in 2019-03-20 17:43:00 94 /min University of Arterial blood by [facility] Systolic blood 2019-02-22 19:58:00 113 mm[Hg] Univer sity of [facility] [place] [facility] Diastolic blood 2019-02-22 19:58:00 68 mm[Hg] Unive rsity of [facility] [place] [facility] Heart rate 2019-02-22 19:58:00 90 /min Universi ty [facility] [place] [facility] Body temperature 2019-02-22 19:58:00 36.61 Radha Univ ersity of [place] [facility] Respiratory rate 2019-02-22 19:58:00 20 /min Univ ersity [facility] [place] [facility] Body height 2019-02-22 19:58:00 160 cm [facility]i [facility] [place] [facility] Body weight 2019-02-22 19:58:00 53.071 kg [facility] [place] [facility] BMI 2019-02-22 19:58:00 20.73 kg/m2 [facility] [place] [facility] Oxygen saturation in 2019-02-22 19:58:00 96 /min University of Arterial blood by [facility] Pulse oximetry Branch Body weight 2019-03-06 14:31:00 51.529 kg [facility]i ty [facility] [place] [facility] BMI 2019-03-06 14:31:00 20.12 kg/m2 [facility] [place] [facility] Oxygen saturation in 2019-03-06 14:31:00 95 /min University of Arterial blood by [facility] Pulse oximetry Branch Systolic blood 2019-03-06 14:31:00 133 mm[Hg] Univer sity of [facility] [place] [facility] Diastolic blood 2019-03-06 14:31:00 68 mm[Hg] Unive rsity of [facility] Heart rate 2019-03-06 14:31:00 77 /min [facility]i ty [facility] [place] [facility] Body temperature 2019-03-06 14:31:00 36.5 Radha Univ ersity [facility] [place] [facility] Respiratory rate 2019-03-06 14:31:00 18 /min Univ ersity of [place] [facility] Systolic blood 2018-11-22 20:50:00 138 mm[Hg] Univer sity of [facility] [place] [facility] Diastolic blood 2018-11-22 20:50:00 67 mm[Hg] Unive rsity of [facility] [place] [facility] Heart rate 2018-11-22 20:50:00 83 /min [facility]i ty [facility] [place] [facility] Body temperature 2018-11-22 20:50:00 36.28 Radha Univ [facility] [place] [facility] Respiratory rate 2018-11-22 20:50:00 16 /min [facility] Body height 2018-11-22 20:50:00 154.9 cm [facility] Body weight 2018-11-22 20:50:00 53.524 kg [facility] BMI 2018-11-22 20:50:00 22.30 kg/m2 [facility] Oxygen saturation in 2018-11-22 20:50:00 94 /min [facility] Arterial blood by [facility] Pulse oximetry Branch Procedures Procedure Date / Time Performing Clinician Source Performed [id number] 2022-03-24 00:00:00 MILLY Coon [facility] ASSIGNMENT OF BENEFITS 2020-07-07 20:24:07 Doctor Unassigned, [facility] [place] [facility] [place] URINALYSIS 2019-03-20 22:01:00 Geraldo Lr [facility] CT ABDOMEN PELVIS WO 2019-03-20 21:20:09 Geraldo Lr [facility] CONTRAST [facility] XR CHEST 1 VW 2019-03-20 19:15:15 Geraldo Lr [facility] LIPASE 2019-03-20 19:14:00 Geraldo Lr [facility] TROPONIN I 2019-03-20 19:14:00 Geraldo Lr [facility] HEPATIC FUNCTION PANEL 2019-03-20 19:14:00 Geraldo Lr [facility] ([id number]) (ALB,T.PRO,BILI Medical Branch T,BU/BC,ALT,AST,ALK PHOS) BASIC METABOLIC PANEL (NA, 2019-03-20 19:14:00 Geraldo Lr [facility] K, CL, CO2, GLUCOSE, BUN, Medica l Branch CREATININE, CA) CBC WITH DIFFERENTIAL 2019-03-20 19:14:00 Geraldo Lr [facility] CONSENT/REFUSAL FOR 2019-03-20 18:24:27 Doctor Chikis, [facility] DIAGNOSIS AND TREATMENT [place] [facility] NO SHOW OR MISSED 2019-02-22 19:15:06 Doctor Unassigned, [facility] APPOINTMENT POLICY [place] [facility] h ACKNOWLEDGEMENT DME/SUPPLY JUSTIFICATION 2018-12-04 05:01:00 Doctor Unassigned, [facility] [place] [facility] Plan of Care Planned Activity Planned Date Details Comments Source Future Scheduled 2023-03-11 SHINGLES VACCINES [facility] Test 08:17:52 (2 of 3) [code = SHINGLES VACCINES (2 of 3)] Future Scheduled 2023-03-11 COVID-19 VACCINE (3 [facility] 08:17:52 - Pfizer series) [code = COVID-19 VACCINE (3 - Pfizer series)] Future Scheduled 2023-03-11 INFLUENZA VACCINE [facility] 08:17:52 (#1) [code = INFLUENZA VACCINE (#1)] Future Scheduled 2022-03-17 HE[facility]ITIS B [facility] 18:38:30 VACCINES (1 of [...] 18:38:30 [code = INFLUENZA VACCINE] Future Scheduled 2022-03-17 [facility]ITIS B [facility] 18:38:30 VACCINES (1 of [...] VACCINE] Future Scheduled 2022-02-10 [facility]INGLES [facility]ACCINES [facility] 17:52:04 (2 of 3) [code = SHINGLES VACCINES (2 of 3)] Future Scheduled 2022-02-10 COVID-19 VACCINE (3 [facility] Test 17:52:04 - Booster for Pfizer series) [code = COVID-19 VACCINE (3 - Booster for Pfizer series)] Future Scheduled 2022-02-10 INFLUENZA VACCINE [facility] 17:52:04 [code = INFLUENZA VACCINE] Future Scheduled 2021-12-01 SHINGLES VACCINES [facility] Test 20:06:05 (2 of 3) [code = SHINGLES VACCINES (2 of 3)] Future Scheduled 2021-12-01 COVID-19 VACCINE (3 [facility] Test 20:06:05 - Booster for Pfizer series) [code = COVID-19 VACCINE (3 - Booster for Pfizer series)] Future Scheduled 2021-12-01 INFLUENZA VACCINE [facility] Test 20:06:05 [code = INFLUENZA VACCINE] Encounters Start End Encounter Admission Attending Care Care Encounter Source Date/Time Date/Time Type Type Clinicians Facility Department ID 2022-01-13 Outpatient STLMLC STLC [id number] Common 14:08:00 [facility] 2021-10-05 Outpatient STLC STLC [id number] Common 08:53:01 [facility] 2021-08-11 Outpatient STLMLC STLMLC [id number] Common 13:33:04 [facility] 2022-03-23 2022-04-06 Inpatient NICHOLAS Bueno, JUSTINCL INTE [id number] [facility] 20:05:00 16:37:00 Balwinder Santizo [facility] 2022-01-20 2022-01-20 (TEL) STLMLC STLMLC [id number] Co mmon 00:00:00 00:00:00 [facility] 2022-01-13 2022-01-13 OFFICE STLC STLC [id number] Co mmon 00:00:00 00:00:00 VISIT EST Spir it PT LEVEL 3 [facility] 2020-08-13 2020-08-13 Outpatient [facility] [id number] [place] 00:00:00 00:00:[address] 2020-07-23 2020-07-23 Outpatient [facility] [id number] [place] 00:00:00 00:00:[address] 2020-07-07 2020-07-07 Laboratory Only, [facility] [id number] 14:25:08 14:40:08 Only Test [place] [id number] [place] [id number] [place] [phone] [facility] 2020-07-07 2020-07-07 Laboratory Only, Adc Test [facility] 1.2.840. 114 [id number] Univers 14:25:08 14:40:08 Only Ousmane Vides [id number] ity of [id number] [phone] [address] 2020-07-07 2020-07-07 Outpatient R [facility] [id number] Univers 14:30:00 14:30:00 ity of [facility] 2020-07-07 2020-07-07 Orders Doctor FOREIGN 1.2.840.114 [id number] Univers 00:00:00 00:00:00 Only Unassigned, ALICIA [id number] ity of [place] [facility] [id number] [place] [phone] [address] 2020-07-07 2020-07-07 Telephone Naif [facility] [id number] Univers 00:00:00 00:00:00 Tamia Byrd [id number] ity of [id number] [phone] Ne dical [address] 2020-07-07 2020-07-07 Telephone Naif MAHERNANDEZ 1.2.840.114 [id number] 00:00:00 00:00:00 Tamia Byrd [id number] [place] [id number] Professio [phone] [address] 2019-03-22 2019-03-22 Telephone [facility] 1.2.840.114 [id number] Univers 00:00:00 00:00:00 Chencho Byrd [id number] i ty [id number] [phone] [facility] [address] [facility] 2019-03-21 2019-03-21 [facility] 1.2.840.114 [id number] Univers 00:00:00 00:00:00 Outreach Tamia Byrd [id number] [id number] [phone] [facility] [address] [facility] 2019-03-21 2019-03-21 [facility] 1.2.840.114 [id number] [facility] 00:00:00 00:00:00 Chencho Lechuga [id number] it y of [place] [id number] [place] Professio [phone] [facility] 044 [facility] 2019-03-20 2019-03-20 Emergency [facility] [address] [id number] [facility] 13:45:40 17:48:00 Geraldo Byrd [id number] i [id number] [phone] [address] 2019-03-20 2019-03-20 Office [facility] 1.2.840.114 [id number] [facility] 12:31:42 13:16:54 Visit Chencho Byrd [id number] i ty of [id number] [phone] [facility] 044 [facility] 2019-02-22 2019-03-11 Office [facility] 1.2.840.114 [id number] [facility] 14:14:28 07:28:29 Visit Tamia Byrd [id number] ity of [id number] [phone] [address] 2019-03-11 2019-03-[address] [facility] 1.2.840.114 [id number] Univers 00:00:00 00:00:00 Tamia Byrd [id number] ity [id number] [phone] [address] 2019-03-06 2019-03-06 Office [facility] 1.2.840.114 [id number] Univers 09:20:55 10:36:45 Visit Chencho Byrd [id number] i ty [id number] [phone] [address] 2019-03-05 2019-03-05 [facility] 1.2.840.114 [id number] Univers 00:00:00 00:00:00 Tamia Byrd [id number] ity [id number] [phone] [address] 2019-02-22 2019-02-22 Orders Doctor [facility]EIGN 1.2.840.114 [id number] Univers 00:00:00 00:00:00 Only Unassigned, ALICIA 350.1.13.10 ity of [place] [facility] [id number] [place] [phone] [address] 2018-12-04 2018-12-04 Orders Doctor FOREIGN 1.2.840.114 [id number] Univers 00:00:00 00:00:00 Only Unassigned, ALICIA 350.1.13.10 ity of [place] [facility] [id number] [place] [phone] [address] 2018-11-22 2018-11-22 Office [facility] 1.2.840.114 [id number] Univers 15:39:03 16:40:40 Visit Tamia Byrd [id number] ity [id number] [phone] [place] [address] [facility] Results Test Description Test Time Test Comments Results Result Comments Source CBC W/AUTO DIFF 2022-04-06 08:39:00 Test Item Value Reference Range Interpretation Comme nts WHITE BLOOD CELL (test code = WBC) 7.2 x10 3/uL 4.5-11.0 N RED BLOOD CELL (test code = RBC) 2.98 x10 6/uL 3.54-5.02 L HEMOGLOBIN (test code = HGB) 8.3 g/dL 11.0-15.0 L HEMATOCRIT (test code = HCT) 26.7 % 33.0-45.0 L MEAN CELL VOLUME (test code = MCV) 89.6 fL 81.0-99.0 N MEAN CELL HGB (test code = MCH) 27.9 pg 27.0-33.0 N MEAN CELL HGB CONCETRATION (test code = MCHC) 31.1 g/dL 33.0-37. 0 L RED CELL DISTRIBUTION WIDTH CV (test code = RDW) 16.5 % 11.5- 14.5 H RED CELL DISTRIBUTION WIDTH SD (test code = RDW-SD) 53.6 fL 37 .0-54.0 N PLATELET COUNT (test code = PLT) 292 x10 3/uL 150-400 N MEAN PLATELET VOLUME (test code = MPV) 11.4 fL 7.0-9.0 H NEUTROPHIL % (test code = NT%) 60.8 % 56.0-77.0 N IMMATURE GRANULOCYTE % (test code = IG%) 0.4 % 0.0-2.0 N LYMPHOCYTE % (test code = LY%) 29.1 % 14.0-32.0 N MONOCYTE % (test code = MO%) 8.6 % 4.8-9.0 N EOSINOPHIL % (test code = EO%) 0.4 % 0.3-3.7 N BASOPHIL % (test code = BA%) 0.7 % 0.0-2.0 N NUCLEATED RBC % (test code = NRBC%) 0.0 % 0-0 N NEUTROPHIL # (test code = NT#) 4.36 x10 3/uL 2.0-7.6 N IMMATURE GRANULOCYTE # (test code = IG#) 0.03 x10 3/uL 0.00-0.03 N LYMPHOCYTE # (test code = LY#) 2.09 x10 3/uL 1.0-3.8 N MONOCYTE # (test code = MO#) 0.62 x10 3/uL 0.1-0.8 N EOSINOPHIL # (test code = EO#) 0.03 x10 3/uL 0.0-0.2 N BASOPHIL # (test code = BA#) 0.05 x10 3/uL 0.0-0.2 N NUCLEATED RBC # (test code = NRBC#) 0.00 x10 3/uL 0.0-0.1 N MANUAL DIFF REQUIRED (test code = MDIFF) NO BASIC METABOLIC [id number] 07:37:00 Test Item Value Reference Range Interpretation Comments SODIUM (test code = NA) 140 mEq/L 134-147 N POTASSIUM (test code = 3.8 mEq/L 3.4-5.0 N K) CHLORIDE (test code = 106 mEq/L 100-108 N CL) CARBON DIOXIDE (test 27 mEq/l 21-33 N code = CO2) ANION GAP (test code = 11 0-20 N GAP) GLUCOSE (test code = 99 mg/dL 70-110 N GLU) BLOOD UREA NITROGEN 19 mg/dL 7-18 H (test code = BUN) GLOMERULAR FILTRATION 47.8 70-80 L Units of measure = RATE (test code = GFR) ml/mi n/1.73 m2 CREATININE (test code = 1.1 mg/dL 0.6-1.3 N CREAT) CALCIUM (test code = 8.2 mg/dL 8.0-10.5 N CA) BASIC METABOLIC [id number] 11:26:00 Test Item Value Reference Range Interpretation Comments SODIUM (test code = NA) 136 mEq/L 134-147 N POTASSIUM (test code = 4.0 mEq/L 3.4-5.0 N K) CHLORIDE (test code = 104 mEq/L 100-108 N CL) CARBON DIOXIDE (test 26 mEq/l 21-33 N code = CO2) ANION GAP (test code = 10 0-20 N GAP) GLUCOSE (test code = 121 mg/dL 70-110 H GLU) BLOOD UREA NITROGEN 17 mg/dL 7-18 N (test code = BUN) GLOMERULAR FILTRATION 43.2 70-80 L Units of measure = RATE (test code = GFR) ml/mi n/1.73 m2 CREATININE (test code = 1.2 mg/dL 0.6-1.3 N CREAT) CALCIUM (test code = 9.0 mg/dL 8.0-10.5 N CA) CREATINE KINASE (CK)2022-04-05 11:26:00 Test Item Value Reference Range Interpretation Comments CREATINE KINASE (CK) (test code = 30 Units/L 34-145 L CK) CBC W/AUTO [id number] 11:00:00 Test Item Value Reference Range Interpretation Comments WHITE BLOOD CELL (test code = 6.9 x10 3/uL 4.5-11.0 N WBC) RED BLOOD CELL (test code = 3.72 x10 6/uL 3.54-5.02 N RBC) HEMOGLOBIN (test code = HGB) 10.4 g/dL 11.0-15.0 L HEMATOCRIT (test code = HCT) 32.7 % 33.0-45.0 L MEAN CELL VOLUME (test code = 87.9 fL 81.0-99.0 N MCV) MEAN CELL HGB (test code = MCH) 28.0 pg 27.0-33.0 N MEAN CELL HGB CONCETRATION 31.8 g/dL 33.0-37.0 L (test code = MCHC) RED CELL DISTRIBUTION WIDTH CV 16.3 % 11.5-14.5 H (test code = RDW) RED CELL DISTRIBUTION WIDTH SD 53.0 fL 37.0-54.0 N (test code = RDW-SD) PLATELET COUNT (test code = 377 x10 3/uL 150-400 N PLT) MEAN PLATELET VOLUME (test code 11.1 fL 7.0-9.0 H = MPV) NEUTROPHIL % (test code = NT%) 68.5 % 56.0-77.0 N IMMATURE GRANULOCYTE % (test 0.3 % 0.0-2.0 N code = IG%) LYMPHOCYTE % (test code = LY%) 24.8 % 14.0-32.0 N MONOCYTE % (test code = MO%) 5.2 % 4.8-9.0 N EOSINOPHIL % (test code = EO%) 0.6 % 0.3-3.7 N BASOPHIL % (test code = BA%) 0.6 % 0.0-2.0 N NUCLEATED RBC % (test code = 0.0 % 0-0 N NRBC%) NEUTROPHIL # (test code = NT#) 4.72 x10 3/uL 2.0-7.6 N IMMATURE GRANULOCYTE # (test 0.02 x10 3/uL 0.00-0.03 N code = IG#) LYMPHOCYTE # (test code = LY#) 1.71 x10 3/uL 1.0-3.8 N MONOCYTE # (test code = MO#) 0.36 x10 3/uL 0.1-0.8 N EOSINOPHIL # (test code = EO#) 0.04 x10 3/uL 0.0-0.2 N BASOPHIL # (test code = BA#) 0.04 x10 3/uL 0.0-0.2 N NUCLEATED RBC # (test code = 0.00 x10 3/uL 0.0-0.1 N NRBC#) MANUAL DIFF REQUIRED (test code NO = MDIFF) - XR SHOULDER 1 V [id number] 00:00:00 [facility] 1940 Sex: F FAX: Kisha Kohli MD, MD [phone] [place]: St: [facility] FAX: Balwinder Varela [phone] Name: MATIASMICHAELA [facility] : 1940 Age/S: 81/F [address] [place] [address] Blvd Unit #: [id number] Loc: G.5503 [place] [address] Phys: Kisha Kohli MD, MD Acct: [id number] Dis Date: Status: ADM IN PHONE #: [phone] Exam Date: 04/05/2022 1432 FAX #: [phone] Reason: PICC PLACEMENT EXAMS: CPT CODE: [id number] XR SHOULDER1 [place] [id number] PROCEDURE INFORMATION: Exam: XR Right Shoulder Exam date and time: 04/05/2022 2:30 PM Age: 81 years old Clinical indication: Device placement; Other: Picc; Additional info: Picc placement T ECHNIQUE: Imaging protocol: Radiologic exam of the Right shoulder. Views: 1 view. COMPARISON: US DUP VEIN UZMA 04/04/2022 8:44 AM FINDINGS: Right arm PICC tip overlies superior vena cava. Bones/joints: There is normal alignment at the glenohumeral joint. There are no fractures or dislocations. The acrom ioclavicular joint and coracoclavicular spaces are intact. The visualized scapula and clavicle are unremarkable. Soft tissues: There are no radiopaque foreign bodies. Notes: If there is further concern, follow-up radiographs or MRI of the shoulder may be performed for complete assessment. IMPRESSION: Right arm PICC tip overlies superior vena cava. at 1514 Reported and signed by: Florencio Jennings M.D. CC: Kisha Kohli MD, MD; Balwinder Bueno MD Technologist: RT Winnie(R) Trnscrd Date/Time/By: 04/05/2022 (130) : By: [email or web address] Orig Print D/T: S: 04/05/2022 (7475) PAGE 1 Signed ReportBASIC METABOLIC [id number] 07:49:00 Test Item Value Reference Range Interpretation Comments SODIUM (test code = NA) 139 mEq/L 134-147 N POTASSIUM (test code = 3.8 mEq/L 3.4-5.0 K) CHLORIDE (test code = 106 mEq/L 100-108 N CL) CARBON DIOXIDE (test 25 mEq/l 21-33 N code = CO2) ANION GAP (test code = 12 0-20 N GAP) GLUCOSE (test code = 83 mg/dL 70-110 N GLU) BLOOD UREA NITROGEN 14 mg/dL 7-18 N (test code = BUN) GLOMERULAR FILTRATION 53.3 70-80 L Units of measure = RATE (test code = GFR) ml/mi n/1.73 m2 CREATININE (test code = 1.0 mg/dL 0.6-1.3 N CREAT) CALCIUM (test code = 8.4 mg/dL 8.0-10.5 N CA) CBC W/AUTO [id number] 00:59:00 Test Item Value Reference Range Interpretation Comments WHITE BLOOD CELL (test code = 7.2 x10 3/uL 4.5-11.0 N WBC) RED BLOOD CELL (test code = 3.39 x10 6/uL 3.54-5.02 L RBC) HEMOGLOBIN (test code = HGB) 9.5 g/dL 11.0-15.0 L HEMATOCRIT (test code = HCT) 30.5 % 33.0-45.0 L MEAN CELL VOLUME (test code = 90.0 fL 81.0-99.0 N MCV) MEAN CELL HGB (test code = MCH) 28.0 pg 27.0-33.0 N MEAN CELL HGB CONCETRATION 31.1 g/dL 33.0-37.0 L (test code = MCHC) RED CELL DISTRIBUTION WIDTH CV 16.6 % 11.5-14.5 H (test code = RDW) RED CELL DISTRIBUTION WIDTH SD 54.1 fL 37.0-54.0 H (test code = RDW-SD) PLATELET COUNT (test code = 309 x10 3/uL 150-400 N PLT) MEAN PLATELET VOLUME (test code 10.3 fL 7.0-9.0 H = MPV) NEUTROPHIL % (test code = NT%) 52.1 % 56.0-77.0 L IMMATURE GRANULOCYTE % (test 0.3 % 0.0-2.0 N code = IG%) LYMPHOCYTE % (test code = LY%) 36.3 % 14.0-32.0 H MONOCYTE % (test code = MO%) 9.0 % 4.8-9.0 N EOSINOPHIL % (test code = EO%) 1.3 % 0.3-3.7 N BASOPHIL % (test code = BA%) 1.0 % 0.0-2.0 N NUCLEATED RBC % (test code = 0.0 % 0-0 N NRBC%) NEUTROPHIL # (test code = NT#) 3.76 x10 3/uL 2.0-7.6 N IMMATURE GRANULOCYTE # (test 0.02 x10 3/uL 0.00-0.03 N code = IG#) LYMPHOCYTE # (test code = LY#) 2.61 x10 3/uL 1.0-3.8 N MONOCYTE # (test code = MO#) 0.65 x10 3/uL 0.1-0.8 N EOSINOPHIL # (test code = EO#) 0.09 x10 3/uL 0.0-0.2 N BASOPHIL # (test code = BA#) 0.07 x10 3/uL 0.0-0.2 N NUCLEATED RBC # (test code = 0.00 x10 3/uL 0.0-0.1 N NRBC#) MANUAL DIFF REQUIRED (test code NO = MDIFF) - [facility]/[id number] 00:00:00 [facility] 1940 Sex: F Name: MICHAELA MATIAS [facility] : 1940 Age/S: 81 / F [address] [place] [address] Unit #: [id number] Loc: [place] [address] Phys: Radha Wisdom MD Acct: [id number] Dis Date: Status: ADM IN PHONE #: [phone] Exam Date: 04/04/2022911 FAX #: [phone] Reason: IV INFILTRATION EXAMS: CPT CODE: [id number] DUP VEIN UNI/LTD [id number] PROCEDURE INFORMATION: Exam: US Duplex Right Upper Extremity Veins, Limited Exam date and time: 04/04/2022 8:44 AM Age: 81 years old Clinical indication: Condition or disease; Other: Iv infiltration; () TECHNIQUE: Imaging protocol: Real-time Duplex ultrasound of the Right Upper Extremity with 2-D ariza scale, color Doppler flow and spectral waveform analysis with image d ocumentation. Limited exam focused on the right upper extremity veins. COMPARISON: CTA CHEST FOR PE 03/25/2022 2:47 PM FINDINGS: Right deep veins: The internal jugular, subclavian, axillary, brachial, radial and ulnar veins are patent without thrombus seen. Right superficial veins: The visualized cephalic and basilic veins are patent without thrombus. Soft tissues: Appear unremarkable. IMPRESSION: No DVT is seen in the right upper extremity. [id number] Reported and signed by: Jose Alberto Lechuga M.D. CC: Radha Wisdom MD; Balwinder Bueno MD Technologi st: Mira Andrez Trnscb Date/Time: 04/04/2022 (0941) [email or web address] Orig Print D/T: S: 04/04/2022 (0942) Probe: PAGE 1 Signed ReportBASIC METABOLIC [id number] 08:04:00 Test Item Value Reference Range Interpretation Comments SODIUM (test code = NA) 137 mEq/L 134-147 N POTASSIUM (test code = 5.4 mEq/L 3.4-5.0 H K) CHLORIDE (test code = 107 mEq/L 100-108 N CL) CARBON DIOXIDE (test 22 mEq/l 21-33 N code = CO2) ANION GAP (test code = 13 0-20 N GAP) GLUCOSE (test code = 81 mg/dL 70-110 N GLU) BLOOD UREA NITROGEN 12 mg/dL 7-18 N (test code = BUN) GLOMERULAR FILTRATION 53.3 70-80 L Units of measure = RATE (test code = GFR) ml/mi n/1.73 m2 CREATININE (test code = 1.0 mg/dL 0.6-1.3 N CREAT) CALCIUM (test code = 8.2 mg/dL 8.0-10.5 N CA) VANCOMYCIN [id number] 07:03:00 Test Item Value Reference Range Interpretation Comments VANCOMYCIN TROUGH 13.1 mcg/mL 10.0-20.0 N 10-15 mcg/ mL - (test code = VANCT) Cellulit is, Urinary Tract Infection . 15-20 mcg/mL - Bacteremia, Infective Endocarditis, Meningitis, Osteomyelitis, Pneumonia, Tracy re Skin/Soft-Tissu e Infection, Spin al Abscess. 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 [facility] GLUCOSE [id number] 11:21:00 Test Item Value Reference Range Interpretation Comments GLUCOSE BEDSIDE (test 138 MG/DL 70-110 H Perfor med by certified code = GLUBED) 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 [facility] GLUCOSE [id number] 07:33:00 Test Item Value Reference Range Interpretation Comments GLUCOSE BEDSIDE (test 91 MG/DL 70-110 N Perfor med by certified code = GLUBED) 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 [facility] GLUCOSE [id number] 21:33:00 Test Item Value Reference Range Interpretation Comments GLUCOSE BEDSIDE (test 113 MG/DL 70-110 H Perfor med by certified code = GLUBED) 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 [facility] GLUCOSE [id number] 16:36:00 Test Item Value Reference Range Interpretation Comments GLUCOSE BEDSIDE (test 115 MG/DL 70-110 H Perfor med by certified code = GLUBED) 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 [facility] GLUCOSE [id number] 11:00:00 Test Item Value Reference Range Interpretation Comments GLUCOSE BEDSIDE (test 121 MG/DL 70-110 H Perfor med by certified code = GLUBED) 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 [facility] GLUCOSE [id number] 06:55:00 Test Item Value Reference Range Interpretation Comments GLUCOSE BEDSIDE (test 77 MG/DL 70-110 N Perfor med by certified code = GLUBED) 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 [facility] GLUCOSE [id number] 20:55:00 Test Item Value Reference Range Interpretation Comments GLUCOSE BEDSIDE (test 113 MG/DL 70-110 H Perfor med by certified code = GLUBED) 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 [facility] GLUCOSE [id number] 17:06:00 Test Item Value Reference Range Interpretation Comments GLUCOSE BEDSIDE (test 112 MG/DL 70-110 H Perfor med by certified code = GLUBED) 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 [facility] CBC W/AUTO [id number] 10:03:00 Test Item Value Reference Range Interpretation Comments WHITE BLOOD CELL (test code = 9.2 x10 3/uL 4.5-11.0 N WBC) RED BLOOD CELL (test code = 4.03 x10 6/uL 3.54-5.02 N RBC) HEMOGLOBIN (test code = HGB) 11.2 g/dL 11.0-15.0 N HEMATOCRIT (test code = HCT) 35.1 % 33.0-45.0 N MEAN CELL VOLUME (test code = 87.1 fL 81.0-99.0 N MCV) MEAN CELL HGB (test code = MCH) 27.8 pg 27.0-33.0 N MEAN CELL HGB CONCETRATION 31.9 g/dL 33.0-37.0 L (test code = MCHC) RED CELL DISTRIBUTION WIDTH CV 16.2 % 11.5-14.5 H (test code = RDW) RED CELL DISTRIBUTION WIDTH SD 50.6 fL 37.0-54.0 N (test code = RDW-SD) PLATELET COUNT (test code = 485 x10 3/uL 150-400 H PLT) MEAN PLATELET VOLUME (test code 9.8 fL 7.0-9.0 H = MPV) NEUTROPHIL % (test code = NT%) 68.0 % 56.0-77.0 N IMMATURE GRANULOCYTE % (test 0.5 % 0.0-2.0 N code = IG%) LYMPHOCYTE % (test code = LY%) 24.1 % 14.0-32.0 N MONOCYTE % (test code = MO%) 5.8 % 4.8-9.0 N EOSINOPHIL % (test code = EO%) 0.9 % 0.3-3.7 N BASOPHIL % (test code = BA%) 0.7 % 0.0-2.0 N NUCLEATED RBC % (test code = 0.2 % 0-0 H NRBC%) NEUTROPHIL # (test code = NT#) 6.26 x10 3/uL 2.0-7.6 N IMMATURE GRANULOCYTE # (test 0.05 x10 3/uL 0.00-0.03 H code = IG#) LYMPHOCYTE # (test code = LY#) 2.22 x10 3/uL 1.0-3.8 N MONOCYTE # (test code = MO#) 0.53 x10 3/uL 0.1-0.8 N EOSINOPHIL # (test code = EO#) 0.08 x10 3/uL 0.0-0.2 N BASOPHIL # (test code = BA#) 0.06 x10 3/uL 0.0-0.2 N NUCLEATED RBC # (test code = 0.02 x10 3/uL 0.0-0.1 N NRBC#) MANUAL DIFF REQUIRED (test code NO = MDIFF) BASIC METABOLIC [id number] 07:34:00 Test Item Value Reference Range Interpretation Comments SODIUM (test code = NA) 141 mEq/L 134-147 N POTASSIUM (test code = 4.1 mEq/L 3.4-5.0 N K) CHLORIDE (test code = 107 mEq/L 100-108 N CL) CARBON DIOXIDE (test 22 mEq/l 21-33 N code = CO2) ANION GAP (test code = 16 0-20 N GAP) GLUCOSE (test code = 72 mg/dL 70-110 N GLU) BLOOD UREA NITROGEN 9 mg/dL 7-18 N (test code = BUN) GLOMERULAR FILTRATION 60.2 70-80 L Units of measure = RATE (test code = GFR) ml/mi n/1.73 m2 CREATININE (test code = 0.9 mg/dL 0.6-1.3 N CREAT) CALCIUM (test code = 8.1 mg/dL 8.0-10.5 N CA) [id number] 07:34:00 Test Item Value Reference Range Interpretation Comments MAGNESIUM (test code = MAG) 1.92 mg/dL 1.80-2.40 N GLUCOSE [id number] 21:16:00 Test Item Value Reference Range Interpretation Comments GLUCOSE BEDSIDE (test 103 MG/DL 70-110 N [facility] med by certified code = GLUBED) 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 [facility] GLUCOSE [id number] 17:18:00 Test Item Value Reference Range Interpretation Comments GLUCOSE BEDSIDE (test 95 MG/DL 70-110 N Perfor med by certified code = GLUBED) 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 [facility] GLUCOSE [id number] 12:09:00 Test Item Value Reference Range Interpretation Comments GLUCOSE BEDSIDE (test 98 MG/DL 70-110 N Perfor med by certified code = GLUBED) 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 [facility] GLUCOSE [id number] 12:09:00 Test Item Value Reference Range Interpretation Comments GLUCOSE BEDSIDE (test 95 MG/DL 70-110 N Perfor med by certified code = GLUBED) 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 15-20 mcg/mL - Bacteremia, Infective Endocarditis, Meningitis, Osteomyelitis, Pneumonia, Tracy re Skin/Soft-Tissu e Infection, Spin al Abscess. 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 [facility] BASIC METABOLIC [id number] 06:18:00 Test Item Value Reference Range Interpretation Comments SODIUM (test code = NA) 137 mEq/L 134-147 N POTASSIUM (test code = 3.8 mEq/L 3.4-5.0 N K) CHLORIDE (test code = 106 mEq/L 100-108 N CL) CARBON DIOXIDE (test 20 mEq/l 21-33 L code = CO2) ANION GAP (test code = 15 0-20 N GAP) GLUCOSE (test code = 84 mg/dL 70-110 N GLU) BLOOD UREA NITROGEN 11 mg/dL 7-18 N (test code = BUN) GLOMERULAR FILTRATION 69.0 70-80 L Units of measure = RATE (test code = GFR) ml/mi n/1.73 m2 CREATININE (test code = 0.8 mg/dL 0.6-1.3 N CREAT) CALCIUM (test code = 8.0 mg/dL 8.0-10.5 N CA) CBC W/AUTO [id number] 06:09:00 Test Item Value Reference Range Interpretation Comments WHITE BLOOD CELL (test code = 8.6 x10 3/uL 4.5-11.0 N WBC) RED BLOOD CELL (test code = 3.37 x10 6/uL 3.54-5.02 L RBC) HEMOGLOBIN (test code = HGB) 9.5 g/dL 11.0-15.0 L HEMATOCRIT (test code = HCT) 29.4 % 33.0-45.0 L MEAN CELL VOLUME (test code = 87.2 fL 81.0-99.0 N MCV) MEAN CELL HGB (test code = MCH) 28.2 pg 27.0-33.0 N MEAN CELL HGB CONCETRATION 32.3 g/dL 33.0-37.0 L (test code = MCHC) RED CELL DISTRIBUTION WIDTH CV 15.9 % 11.5-14.5 H (test code = RDW) RED CELL DISTRIBUTION WIDTH SD 50.6 fL 37.0-54.0 N (test code = RDW-SD) PLATELET COUNT (test code = 367 x10 3/uL 150-400 N PLT) MEAN PLATELET VOLUME (test code 10.5 fL 7.0-9.0 H = MPV) NEUTROPHIL % (test code = NT%) 62.7 % 56.0-77.0 N IMMATURE GRANULOCYTE % (test 1.9 % 0.0-2.0 N code = IG%) LYMPHOCYTE % (test code = LY%) 25.9 % 14.0-32.0 N MONOCYTE % (test code = MO%) 7.1 % 4.8-9.0 N EOSINOPHIL % (test code = EO%) 1.7 % 0.3-3.7 N BASOPHIL % (test code = BA%) 0.7 % 0.0-2.0 N NUCLEATED RBC % (test code = 0.0 % 0-0 N NRBC%) NEUTROPHIL # (test code = NT#) 5.39 x10 3/uL 2.0-7.6 N IMMATURE GRANULOCYTE # (test 0.16 x10 3/uL 0.00-0.03 H code = IG#) LYMPHOCYTE # (test code = LY#) 2.23 x10 3/uL 1.0-3.8 N MONOCYTE # (test code = MO#) 0.61 x10 3/uL 0.1-0.8 N EOSINOPHIL # (test code = EO#) 0.15 x10 3/uL 0.0-0.2 N BASOPHIL # (test code = BA#) 0.06 x10 3/uL 0.0-0.2 N NUCLEATED RBC # (test code = 0.00 x10 3/uL 0.0-0.1 N NRBC#) MANUAL DIFF REQUIRED (test code NO = MDIFF) VANCOMYCIN [id number] 02:07:00 Test Item Value Reference Range Interpretation Comments VANCOMYCIN PEAK (test code = 23.2 MCG/ML 30-40 L VANCP) GLUCOSE [id number] 20:42:00 Test Item Value Reference Range Interpretation Comments GLUCOSE BEDSIDE (test 90 MG/DL 70-110 N Perfor med by certified code = GLUBED) 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 [facility] GLUCOSE [id number] 17:00:00 Test Item Value Reference Range Interpretation Comments GLUCOSE BEDSIDE (test 95 MG/DL 70-110 N Perfor med by certified code = GLUBED) 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 [facility] GLUCOSE [id number] 11:40:00 Test Item Value Reference Range Interpretation Comments GLUCOSE BEDSIDE (test 89 MG/DL 70-110 N Perfor med by certified code = GLUBED) 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 [facility] GLUCOSE [id number] 11:37:00 Test Item Value Reference Range Interpretation Comments GLUCOSE BEDSIDE (test 95 MG/DL 70-110 N Perfor med by certified code = GLUBED) 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 [facility] GLUCOSE [id number] 09:09:00 Test Item Value Reference Range Interpretation Comments GLUCOSE BEDSIDE (test 83 MG/DL 70-110 N Perfor med by certified code = GLUBED) 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 [facility] COMPREHENSIVE METABOLIC [id number] 06:47:00 Test Item Value Reference Range Interpretation Comments SODIUM (test code = NA) 138 mEq/L 134-147 N POTASSIUM (test code = 3.7 mEq/L 3.4-5.0 N K) CHLORIDE (test code = 107 mEq/L 100-108 N CL) CARBON DIOXIDE (test 19 mEq/l 21-33 L code = CO2) ANION GAP (test code = 16 0-20 N GAP) GLUCOSE (test code = 80 mg/dL 70-110 N GLU) BLOOD UREA NITROGEN 12 mg/dL 7-18 N (test code = BUN) GLOMERULAR FILTRATION 69.0 70-80 L Units of measure = RATE (test code = GFR) ml/mi n/1.73 m2 CREATININE (test code = 0.8 mg/dL 0.6-1.3 N CREAT) TOTAL PROTEIN (test 6.2 g/dL 6.4-8.2 L code = PROT) ALBUMIN (test code = 2.30 g/dL 3.4-5.0 L ALB) CALCIUM (test code = 8.0 mg/dL 8.0-10.5 N CA) BILIRUBIN TOTAL (test 0.30 mg/dL 0.0-1.0 N code = BILT) SGOT/AST (test code = 21 IUnit/L 15-37 N AST) SGPT/ALT (test code = 7 IUnit/L 30-65 L ALT) ALKALINE PHOSPHATASE 92 IUnit/L 20-125 N TOTAL (test code = ALKP) CBC W/AUTO [id number] 06:36:00 Test Item Value Reference Range Interpretation Comments WHITE BLOOD CELL (test code = 9.4 x10 3/uL 4.5-11.0 N WBC) RED BLOOD CELL (test code = 3.32 x10 6/uL 3.54-5.02 L RBC) HEMOGLOBIN (test code = HGB) 9.3 g/dL 11.0-15.0 L HEMATOCRIT (test code = HCT) 28.1 % 33.0-45.0 L MEAN CELL VOLUME (test code = 84.6 fL 81.0-99.0 N MCV) MEAN CELL HGB (test code = MCH) 28.0 pg 27.0-33.0 N MEAN CELL HGB CONCETRATION 33.1 g/dL 33.0-37.0 N (test code = MCHC) RED CELL DISTRIBUTION WIDTH CV 15.6 % 11.5-14.5 H (test code = RDW) RED CELL DISTRIBUTION WIDTH SD 47.9 fL 37.0-54.0 N (test code = RDW-SD) PLATELET COUNT (test code = 347 x10 3/uL 150-400 N PLT) MEAN PLATELET VOLUME (test code 10.1 fL 7.0-9.0 H = MPV) NEUTROPHIL % (test code = NT%) 68.2 % 56.0-77.0 N IMMATURE GRANULOCYTE % (test 1.7 % 0.0-2.0 N code = IG%) LYMPHOCYTE % (test code = LY%) 22.2 % 14.0-32.0 N MONOCYTE % (test code = MO%) 6.1 % 4.8-9.0 N EOSINOPHIL % (test code = EO%) 1.3 % 0.3-3.7 N BASOPHIL % (test code = BA%) 0.5 % 0.0-2.0 N NUCLEATED RBC % (test code = 0.0 % 0-0 N NRBC%) NEUTROPHIL # (test code = NT#) 6.43 x10 3/uL 2.0-7.6 N IMMATURE GRANULOCYTE # (test 0.16 x10 3/uL 0.00-0.03 H code = IG#) LYMPHOCYTE # (test code = LY#) 2.09 x10 3/uL 1.0-3.8 N MONOCYTE # (test code = MO#) 0.57 x10 3/uL 0.1-0.8 N EOSINOPHIL # (test code = EO#) 0.12 x10 3/uL 0.0-0.2 N BASOPHIL # (test code = BA#) 0.05 x10 3/uL 0.0-0.2 N NUCLEATED RBC # (test code = 0.00 x10 3/uL 0.0-0.1 N NRBC#) MANUAL DIFF REQUIRED (test code NO = MDIFF) GLUCOSE [id number] 21:07:00 Test Item Value Reference Range Interpretation Comments GLUCOSE BEDSIDE (test 91 MG/DL 70-110 N Perfor med by certified code = GLUBED) 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 [facility] GLUCOSE [id number] 16:03:00 Test Item Value Reference Range Interpretation Comments GLUCOSE BEDSIDE (test 100 MG/DL 70-110 N Perfor med by certified code = GLUBED) 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 [facility] GLUCOSE [id number] 11:27:00 Test Item Value Reference Range Interpretation Comments GLUCOSE BEDSIDE (test 107 MG/DL 70-110 N Perfor med by certified code = GLUBED) 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 [facility] GLUCOSE [id number] 08:27:00 Test Item Value Reference Range Interpretation Comments GLUCOSE BEDSIDE (test 83 MG/DL 70-110 N [facility] by certified code = GLUBED) 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 [facility] COMPREHENSIVE METABOLIC [id number] 04:33:00 Test Item Value Reference Range Interpretation Comments SODIUM (test code = NA) 138 mEq/L 134-147 N POTASSIUM (test code = 3.7 mEq/L 3.4-5.0 N K) CHLORIDE (test code = 108 mEq/L 100-108 N CL) CARBON DIOXIDE (test 20 mEq/l 21-33 L code = CO2) ANION GAP (test code = 14 0-20 N GAP) GLUCOSE (test code = 86 mg/dL 70-110 N GLU) BLOOD UREA NITROGEN 12 mg/dL 7-18 (test code = BUN) GLOMERULAR FILTRATION 69.0 70-80 L Units of measure = RATE (test code = GFR) ml/mi n/1.73 m2 CREATININE (test code = 0.8 mg/dL 0.6-1.3 N CREAT) TOTAL PROTEIN (test 5.8 g/dL 6.4-8.2 L code = PROT) ALBUMIN (test code = 2.30 g/dL 3.4-5.0 L ALB) CALCIUM (test code = 8.0 mg/dL 8.0-10.5 N CA) BILIRUBIN TOTAL (test 0.40 mg/dL 0.0-1.0 N code = BILT) SGOT/AST (test code = 14 IUnit/L 15-37 L AST) SGPT/ALT (test code = < 7 IUnit/L 30-65 L ALT) ALKALINE PHOSPHATASE 92 IUnit/L 20-125 N TOTAL (test code = ALKP) CBC W/AUTO [id number] 04:23:00 Test Item Value Reference Range Interpretation Comments WHITE BLOOD CELL (test code = 11.7 x10 3/uL 4.5-11.0 H WBC) RED BLOOD CELL (test code = 3.15 x10 6/uL 3.54-5.02 L RBC) HEMOGLOBIN (test code = HGB) 8.9 g/dL 11.0-15.0 L HEMATOCRIT (test code = HCT) 26.8 % 33.0-45.0 L MEAN CELL VOLUME (test code = 85.1 fL 81.0-99.0 N MCV) MEAN CELL HGB (test code = MCH) 28.3 pg 27.0-33.0 N MEAN CELL HGB CONCETRATION 33.2 g/dL 33.0-37.0 N (test code = MCHC) RED CELL DISTRIBUTION WIDTH CV 15.8 % 11.5-14.5 H (test code = RDW) RED CELL DISTRIBUTION WIDTH SD 48.8 fL 37.0-54.0 N (test code = RDW-SD) PLATELET COUNT (test code = 252 x10 3/uL 150-400 PLT) MEAN PLATELET VOLUME (test code 10.6 fL 7.0-9.0 H = MPV) NEUTROPHIL % (test code = NT%) 70.5 % 56.0-77.0 N IMMATURE GRANULOCYTE % (test 1.8 % 0.0-2.0 N code = IG%) LYMPHOCYTE % (test code = LY%) 19.3 % 14.0-32.0 N MONOCYTE % (test code = MO%) 6.5 % 4.8-9.0 N EOSINOPHIL % (test code = EO%) 1.6 % 0.3-3.7 N BASOPHIL % (test code = BA%) 0.3 % 0.0-2.0 N NUCLEATED RBC % (test code = 0.0 % 0-0 N NRBC%) NEUTROPHIL # (test code = NT#) 8.22 x10 3/uL 2.0-7.6 H IMMATURE GRANULOCYTE # (test 0.21 x10 3/uL 0.00-0.03 H code = IG#) LYMPHOCYTE # (test code = LY#) 2.25 x10 3/uL 1.0-3.8 N MONOCYTE # (test code = MO#) 0.76 x10 3/uL 0.1-0.8 N EOSINOPHIL # (test code = EO#) 0.19 x10 3/uL 0.0-0.2 N BASOPHIL # (test code = BA#) 0.04 x10 3/uL 0.0-0.2 N NUCLEATED RBC # (test code = 0.00 x10 3/uL 0.0-0.1 N NRBC#) MANUAL DIFF REQUIRED (test code NO = MDIFF) GLUCOSE [id number] 20:46:00 Test Item Value Reference Range Interpretation Comments GLUCOSE BEDSIDE (test 106 MG/DL 70-110 N Perfor med by certified code = GLUBED) 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 [facility] GLUCOSE [id number] 17:28:00 Test Item Value Reference Range Interpretation Comments GLUCOSE BEDSIDE (test 96 MG/DL 70-110 N Perfor med by certified code = GLUBED) 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 [facility] GLUCOSE [id number] 12:17:00 Test Item Value Reference Range Interpretation Comments GLUCOSE BEDSIDE (test 84 MG/DL 70-110 N Perfor med by certified code = GLUBED) 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 [facility] GLUCOSE [id number] 08:18:00 Test Item Value Reference Range Interpretation Comments GLUCOSE BEDSIDE (test 85 MG/DL 70-110 N Perfor med by certified code = GLUBED) 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 [facility] COMPREHENSIVE METABOLIC [id number] 03:33:00 Test Item Value Reference Range Interpretation Comments SODIUM (test code = NA) 136 mEq/L 134-147 N POTASSIUM (test code = 3.9 mEq/L 3.4-5.0 N K) CHLORIDE (test code = 109 mEq/L 100-108 H CL) CARBON DIOXIDE (test 19 mEq/l 21-33 L code = CO2) ANION GAP (test code = 12 0-20 N GAP) GLUCOSE (test code = 87 mg/dL 70-110 N GLU) BLOOD UREA NITROGEN 9 mg/dL 7-18 (test code = BUN) GLOMERULAR FILTRATION 80.5 70-80 H Units of measure = RATE (test code = GFR) ml/mi n/1.73 m2 CREATININE (test code = 0.7 mg/dL 0.6-1.3 N CREAT) TOTAL PROTEIN (test 5.9 g/dL 6.4-8.2 L code = PROT) ALBUMIN (test code = 2.40 g/dL 3.4-5.0 L ALB) CALCIUM (test code = 8.1 mg/dL 8.0-10.5 N CA) BILIRUBIN TOTAL (test 0.40 mg/dL 0.0-1.0 N code = BILT) SGOT/AST (test code = 17 IUnit/L 15-37 N AST) SGPT/ALT (test code = 7 IUnit/L 30-65 L ALT) ALKALINE PHOSPHATASE 105 IUnit/L 20-125 N TOTAL (test code = ALKP) CBC W/AUTO [id number] 03:06:00 Test Item Value Reference Range Interpretation Comments WHITE BLOOD CELL (test code = 17.7 x10 3/uL 4.5-11.0 H WBC) RED BLOOD CELL (test code = 3.49 x10 6/uL 3.54-5.02 L RBC) HEMOGLOBIN (test code = HGB) 9.8 g/dL 11.0-15.0 L HEMATOCRIT (test code = HCT) 30.1 % 33.0-45.0 L MEAN CELL VOLUME (test code = 86.2 fL 81.0-99.0 N MCV) MEAN CELL HGB (test code = 28.1 pg 27.0-33.0 N MCH) MEAN CELL HGB CONCETRATION 32.6 g/dL 33.0-37.0 L (test code = MCHC) RED CELL DISTRIBUTION WIDTH CV 15.7 % 11.5-14.5 H (test code = RDW) RED CELL DISTRIBUTION WIDTH SD 49.5 fL 37.0-54.0 N (test code = RDW-SD) PLATELET COUNT (test code = 130 x10 3/uL 150-400 L PLT) MEAN PLATELET VOLUME (test 12.7 fL 7.0-9.0 H code = MPV) NEUTROPHIL % (test code = NT%) 76.2 % 56.0-77.0 N IMMATURE GRANULOCYTE % (test 1.1 % 0.0-2.0 N code = IG%) LYMPHOCYTE % (test code = LY%) 16.0 % 14.0-32.0 N MONOCYTE % (test code = MO%) 5.4 % 4.8-9.0 N EOSINOPHIL % (test code = EO%) 1.0 % 0.3-3.7 N BASOPHIL % (test code = BA%) 0.3 % 0.0-2.0 N NUCLEATED RBC % (test code = 0.0 % 0-0 N NRBC%) NEUTROPHIL # (test code = NT#) 13.52 x10 3/uL 2.0-7.6 H IMMATURE GRANULOCYTE # (test 0.20 x10 3/uL 0.00-0.03 H code = IG#) LYMPHOCYTE # (test code = LY#) 2.84 x10 3/uL 1.0-3.8 N MONOCYTE # (test code = MO#) 0.96 x10 3/uL 0.1-0.8 H EOSINOPHIL # (test code = EO#) 0.17 x10 3/uL 0.0-0.2 N BASOPHIL # (test code = BA#) 0.05 x10 3/uL 0.0-0.2 N NUCLEATED RBC # (test code = 0.00 x10 3/uL 0.0-0.1 N NRBC#) MANUAL DIFF REQUIRED (test NO code = MDIFF) VANCOMYCIN [id number] 02:15:00 Test Item Value Reference Range Interpretation Comments VANCOMYCIN PEAK (test code = 25.2 MCG/ML 30-40 L VANCP) - MRI BRAIN W/O [id number] 00:00:00 [facility] 1940 Sex: F FAX: Radha Shah MD [place]: St: [facility] FAX: Rodrick Barahona [phone] Name: MICHAELA MATIAS [facility] : 1940 Age/S: 81/F [address] [place] [address] Unit #: [id number] Loc: [address] [address] Phys: Rodrick Barahona MD Acct: [id number] Dis Date: Status: ADM IN PHONE #: [phone] Exam Date: 03/25/20221911 FAX #: [phone] Reason: Bacterial endocarditis, TIA Report Has Been Amended EXAMS:CPT CODE: [id number] MRI BRAIN W/O CONT 44034 Addendum - 03/26/2022 SIGNED 03/26/2022 ADDENDUM: [id number] MRI/MRIBRAINWO Probable small left frontal convexity arachnoid cyst. Minimal mass effect. at 0857 Reported and signed by: Antoine Bravo M.D. Report PROCEDURE INFORMATION: Exam: MR Head Without Contrast Exam date and time: 03/25/2022 5:05 PM Age: 81 years old Clinical indication: Other: Bacterial endocarditis, TIA TECHNIQUE: Imaging protocol: Magnetic resonance imaging of the head without contrast. COMPARISON: CT HEAD/BRAIN W/OCONT 03/25/2022 2:39 PM FINDINGS: Brain: No diffusion restriction, no acute or subacute infarct. No edema or mass effect. Probable small arachnoid cyst in the left frontal convexity with minimal mass effect on the anterior left frontal lobe. Otherwise essentially normal signal for age with minimal chronic microangiopathy. Mild generalized volume loss. No acute intracranial hemorrhage. Basal cisterns are patent. Flow voids of the major intracranial vessels are preserved. Cerebral ventricles: Mild volume loss related ventriculomegaly. No acute hydrocephalus. Bones/joints: Unremarkable. Paranasal sinuses: Normal as visualized. No acute sinusitis. Mastoid air cells: Normal as visualized. No mastoid effusion. Orbital cavities: Unremarkable. Soft tissues: Unremarkable. IMPRESSION: 1. No acute intracranial process. No evidence for acute or subacute infarct. No edema, hemorrhage, or mass effect. PAGE 1 Sig meryl Report (CONTINUED) FAX: Radha Shah MD [place]: St: [facility] FAX: Rodrick Barahona [phone] Name: MICHAELA MATIAS [facility] : 1940 Age/S: 81/F [address] [place] [address] Blvd Unit #: [id number] Loc: [place] [address] Phys: Rodrick Barahona MD Acct: [id number] Dis Date: Status: ADM IN PHONE #: Exam Date: 03/25/20221911 FAX #: [phone] Reason: Bacterial endocarditis, TIA Report Has Been Amended EXAMS: CPT CODE: [id number] MRI BRAIN W/O CONT 24581 (Continued) 2. No MR evidence for meningitis or cerebritis. 3. Mild volume loss related ventriculomegaly. No acute hydrocephalus. at 0843 Reported and signed by: Antoine Bravo M.D. CC: Radha Wisdom MD; Rodrick Barahona MD Technologist: Mihir Pagan, RT(R)(CT) Trnscrd Date/Time/By: 03/26/2022 (0843) : By: [email or web address] Orig Print D/T: S: 03/26/2022 (0843)PAGE 2 Signed ReportVANCOMYCIN [id number] 22:02:00 Test Item Value Reference Range Interpretation Comments VANCOMYCIN TROUGH 17.1 mcg/mL 10.0-20.0 N 10-15 mcg/ mL - (test code = VANCT) Cellulit is, Urinary Tract Infection . 15-20 mcg/mL - Bacteremia, Infective Endocarditis, Meningitis, Osteomyelitis, Pneumonia, Tracy re Skin/Soft-Tissu e Infection, Spin al Abscess. 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 HDL CHOLESTEROL < 20.0 mg/dL 39-96 L (test code = HDL) LIPOPROTEIN LDL 38.5 mg/dL 0-100 N <100 OPTIMAL 100-129 (test code = LDL) NEAR OPTIM AL/ABOVE [id number] 89 HIGH>EE=269 MILES Y HIGH*Guidelines provided by the National [facility] terol EducationProgra m Adult Treatment Panel III HGBA1C%2022-03-25 16:58:00 Test Item Value Reference Range Interpretation Comments HGBA1C% (test code = HGBA1C%) 6.0 %A1C 4.8-6.0 N GLUCOSE [id number] 16:46:00 Test Item Value Reference Range Interpretation Comments GLUCOSE BEDSIDE (test 84 MG/DL 70-110 N Perfor med by certified code = GLUBED) 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 [facility] GLUCOSE [id number] 12:10:00 Test Item Value Reference Range Interpretation Comments GLUCOSE BEDSIDE (test 96 MG/DL 70-110 N Perfor med by certified code = GLUBED) 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 [facility] GLUCOSE [id number] 08:42:00 Test Item Value Reference Range Interpretation Comments GLUCOSE BEDSIDE (test 89 MG/DL 70-110 N Perfor med by certified code = GLUBED) 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 99th Percentile Upper Reference Limit (URL): Females: 34 ng/LMales: 54 n g/L In order to distinguish acute elevations of h igh sensitivitytrop onin from other clinical conditions, the FourthUnive rsal Definition of M yocardial Infarction stre ssesclinical assessment and the demonstration o f a rise and/orfall in s erial troponin result s above the URL. These resu lts were obtained using Siemens Atellmywaves IM TnI Hreagent. Results from di fferent methodologies s hould not becompared to o ne another as quantitative results and URLs mayvary by method. COMPREHENSIVE METABOLIC [id number] 04:40:00 Test Item Value Reference Range Interpretation Comments SODIUM (test code = NA) 141 mEq/L 134-147 N POTASSIUM (test code = 3.7 mEq/L 3.4-5.0 N K) CHLORIDE (test code = 112 mEq/L 100-108 H CL) CARBON DIOXIDE (test 22 mEq/l 21-33 N code = CO2) ANION GAP (test code = 11 0-20 N GAP) GLUCOSE (test code = 106 mg/dL 70-110 N GLU) BLOOD UREA NITROGEN 18 mg/dL 7-18 N (test code = BUN) GLOMERULAR FILTRATION 69.0 70-80 L Units of measure = RATE (test code = GFR) ml/mi n/1.73 m2 CREATININE (test code = 0.8 mg/dL 0.6-1.3 N CREAT) TOTAL PROTEIN (test 6.0 g/dL 6.4-8.2 L code = PROT) ALBUMIN (test code = 2.70 g/dL 3.4-5.0 L ALB) CALCIUM (test code = 8.6 mg/dL 8.0-10.5 N CA) BILIRUBIN TOTAL (test 0.40 mg/dL 0.0-1.0 N code = BILT) SGOT/AST (test code = 23 IUnit/L 15-37 N AST) SGPT/ALT (test code = 10 IUnit/L 30-65 L ALT) ALKALINE PHOSPHATASE 100 IUnit/L 20-125 N TOTAL (test code = ALKP) CBC W/AUTO [id number] 04:21:00 Test Item Value Reference Range Interpretation Comments WHITE BLOOD CELL (test code = 15.1 x10 3/uL 4.5-11.0 H WBC) RED BLOOD CELL (test code = 3.48 x10 6/uL 3.54-5.02 L RBC) HEMOGLOBIN (test code = HGB) 9.9 g/dL 11.0-15.0 L HEMATOCRIT (test code = HCT) 30.8 % 33.0-45.0 L MEAN CELL VOLUME (test code = 88.5 fL 81.0-99.0 N MCV) MEAN CELL HGB (test code = 28.4 pg 27.0-33.0 N MCH) MEAN CELL HGB CONCETRATION 32.1 g/dL 33.0-37.0 L (test code = MCHC) RED CELL DISTRIBUTION WIDTH CV 15.8 % 11.5-14.5 H (test code = RDW) RED CELL DISTRIBUTION WIDTH SD 51.0 fL 37.0-54.0 N (test code = RDW-SD) PLATELET COUNT (test code = 125 x10 3/uL 150-400 L PLT) MEAN PLATELET VOLUME (test 12.7 fL 7.0-9.0 H code = MPV) NEUTROPHIL % (test code = NT%) 77.6 % 56.0-77.0 H IMMATURE GRANULOCYTE % (test 1.1 % 0.0-2.0 N code = IG%) LYMPHOCYTE % (test code = LY%) 14.0 % 14.0-32.0 N MONOCYTE % (test code = MO%) 6.0 % 4.8-9.0 N EOSINOPHIL % (test code = EO%) 1.1 % 0.3-3.7 N BASOPHIL % (test code = BA%) 0.2 % 0.0-2.0 N NUCLEATED RBC % (test code = 0.0 % 0-0 N NRBC%) NEUTROPHIL # (test code = NT#) 11.70 x10 3/uL 2.0-7.6 H IMMATURE GRANULOCYTE # (test 0.16 x10 3/uL 0.00-0.03 H code = IG#) LYMPHOCYTE # (test code = LY#) 2.11 x10 3/uL 1.0-3.8 N MONOCYTE # (test code = MO#) 0.90 x10 3/uL 0.1-0.8 H EOSINOPHIL # (test code = EO#) 0.17 x10 3/uL 0.0-0.2 N BASOPHIL # (test code = BA#) 0.03 x10 3/uL 0.0-0.2 N NUCLEATED RBC # (test code = 0.00 x10 3/uL 0.0-0.1 N NRBC#) MANUAL DIFF REQUIRED (test NO code = MDIFF) - CT ANGIO [id number] 00:00:00 [facility] : 1940 Sex: F Name: MICHAELA MATIAS [facility] : 1940 Age/S: 81 / F [address] [place] [address] Unit #: [id number] Loc: [place] [address] Phys: Bruce Durham MD Acct: [id number] Dis Date: Status: ADM IN PHONE #: [phone] Exam Date: 03/25/2022 145 FAX #: [phone] Reason: PROTOCOL EXAMS: CPT CODE: [id number] ANGIO NECK 13769 PROCEDURE INFORMATION: Exam: CTA Head With Contrast, Arteriography Exam date and time: 03/25/2022 2:43 PM Age: 81 years old Clinical indication: Stroke-like symptoms; Other: Change inmental status, new aphasia TECHNIQUE: Imaging protocol: Computed tomographic angiography of the headwith contrast. Exam focused on the arteries. 3D rendering (Not supervised by radiologist): MIP and/or 3D reconstructed images were created by the technologist. Radiation optimization: All CT scans at this facility use at least one of these dose optimization techniques: automated exposure control; mA and/or kV adjustment per patient size (includes targeted exams where dose is matched to clinical indica tion); or iterative reconstruction. Contrast material: ISOVUE 300; Contrast volume: 100 ml; Contrastroute: INTRAVENOUS (IV); COMPARISON: CT HEAD/BRAIN W/O CONT 03/25/2022 2:39 PM FINDINGS: ANTERIOR CIRCULATION: Right internal carotid artery: Intracranial segment is patent with no significant stenosis. No aneurysm. Right middle cerebral artery: No occlusion or significant stenosis. No aneurysm. Right anterior cerebral artery: No occlusion or significant stenosis. No aneurysm. Left internal carotid artery: Intracranial segment is patent with no significant stenosis. No aneurysm. Left middle cerebral artery: No occlusion or significant stenosis. No aneurysm. Left anterior cerebral artery: No occlusion or significant stenosis. No aneurysm. POSTERIOR CIRCULATION: Right vertebral artery: No occlusion or significant stenosis. No aneurysm. Left vertebral artery: No occlusion or significant stenosis. No aneurysm. Basilar artery: No occlusion or significant stenosis. No aneurysm. Right posterior cerebralartery: No occlusion or significant stenosis. No aneurysm. Bilateral employer relations representative are present which isnormal variant. Left posterior cerebral artery: No occlusion or significant stenosis. No aneurysm. Bilateral employer relations representative are present which is PAGE 1 Signed Report (CONTINUED) Name: MICHAELA MATIAS [facility] : 1940 Age/S: 81 / F [address] [place] [address] Unit #: [id number] Loc: [place], [place] [address] Phys: Bruce Durham MD Acct: [id number] Dis Date: Status: ADM IN PHONE #: [phone] Exam Date: 03/25/2022 4816 FAX #: [phone] Reason: PROTOCOL EXAMS: CPT CODE: [id number] CT ANGIO NECK 93754 (C ontinued) normal variant. Brain: No definite mass, mass effect, or midline shift. Cerebral ventricles: No ventriculomegaly. Bones/joints: No acute fracture. Soft tissues: Unremarkable. PROCEDURE INFORMATION: Exam: CTA Neck With Contrast Exam date and time: 03/25/2022 2:43 PM Age: 81 years old Clinical indication: Stroke-like symptoms; Other: Change in mental status, new aphasia TECHNIQUE: Imaging protocol: Computed tomographic angiography of the neck with contrast. 3D rendering (Not supervised by radiologist): MIP and/or 3D reconstructed images were created by the technolog ist. Radiation optimization: All CT scans at this facility use at least one of these dose optimization techniques: automated exposure control; mA and/or kV adjustment per patient size (includes targeted exams where dose is matched to clinical indication); or iterative reconstruction. Contrast material: ISOVUE 300; Contrast volume: 100 ml; Contrast route: INTRAVENOUS (IV); COMPARISON: CT HEAD/BRAIN W/O CONT 03/25/2022 2:39 PM FINDINGS: Right common carotid artery: No flow-limiting stenosis. No dissection or occlusion. Right internal carotid artery: Atherosclerotic calcification of the right carotid bifurcation. No flow- limiting stenosis. No dissection or occlusion. Right external carotid artery: No occlusion or stenosis of the origin. Left common carotid artery: There is common origin of brachiocephalic and left common carotid arteries which is a normal variant. Left internal carotid artery: Atherosclerotic calcification of the left carotid bifurcation. No flow-limiting stenosis. No dissection or occlusion. Left external carotid artery: No occlusion or stenosis of the origin. Right vertebral artery: No flow-limiting stenosis. No dissection or occlusion. The vertebral arteries are codominant. PAGE 2 Signed Report (CONTINUED) Name: MICHAELA MATIAS [facility] : 1940 Age/S: 81 / F [address] [place] [address] Unit #: [id number] Loc: [place] [address] Phys: Bruce Durham MD Acct: [id number] Dis Date: Status: ADM IN PHONE #: [phone] Exam Date: 03/25/2022 5439 FAX #: [phone] Reason:PROTOCOL EXAMS: CPT CODE: [id number] CT ANGIO NECK 34772 (Continued) Left vertebral artery: No flow-limiting stenosis. No dissection or occlusion. The vertebral arteries are codominant. Lymph nodes: Multiple small nonspecific mediastinal nodes are present. Soft tissues: No significant soft tissue swelling. Bones/joints: No acute fracture. Lungs: The lungs are emphysematous. A 9.0 mm irregular left upper lobe pulmonary lesion is present and adjacent 3.0 mm pulmonary nodule is present. Pleural spaces:Small right pleural effusion. Other findings: Marked motion artifact degrades image quality. REFERENCES: NASCET CRITERIA. The degree of stenosis in the cervical segment of the internal carotid artery is based on NASCET criteria. Normal is no stenosis. Mild is less than 50% stenosis. Moderate is 50-69%stenosis. Severe is 70% to 99% stenosis. Total occlusion is no detectable patent lumen. IMPRESSION: CTA Head With Contrast, Arteriography No definite acute major large vessel branch occlusion or flow-limiting intracranial stenosis. Please correlate with neurologic symptoms and dedicated MRI brain can be performed for further evaluation. CTA Neck With Contrast 1. Limited study as above. No definite gross flow-limiting internal carotid artery or vertebral stenosis detected. 2. Emphysema. Small right pleural effusion. A 9.0 mm irregular left upper lobe pulmonary lesion is present and adjacent 3.0 mm pulmonary nodule is present. Please refer to CT chest report for additional d etails. at 1515 Reported and signed by: Richy Schaefer M.D. CC: Bruce Durham MD; Radha Wisdom MD Technologist:Higinio Aviles,RT(R)(CT) CTDI: DLP: Trnscb Date/Time: 03/25/2022 (0376) [email or web address] Orig Print D/T: S: 03/25/2022 (9417) PAGE 3 Signed Report- CTA CHEST FOR [id number] 00:00:00 [facility] : 1940 Sex: F Name: MICHAELA MATIAS [facility] [place] : 1940 Age/S: 81 / F [address] [place] [address] Blvd Unit #: [id number] Loc: [place] [address] Phys: Bruce Durham MD Acct: [id number] Dis Date: Status: ADM IN PHONE #: [phone] Exam Date: 03/25/2022 1456 FAX #: [phone] Reason: PROTOCOL EXAMS: CPT CODE: [id number] [place] [address] PROCEDURE INFORMATION: Exam: CTA Chest With Contrast Exam date and time: 2021 2:47 PM Age: 81 years old Clinical indication: Shortness of breath; Additional info: Protocol TECHNIQUE: Imaging protocol: Computed tomographic angiography of the chest with contrast. 3D rendering(Not supervised by radiologist): MIP and/or 3D reconstructed images were created by the technologist. Radiation optimization: All CT scans at this facility use at least one of these dose optimization techniques: automated exposure control; mA and/or kV adjustment per patient size (includes targeted exams where dose is matched to clinical indication); or iterative reconstruction. Contrast material: ISOVUE 300; Contrast volume: 100 ml; Contrast route: INTRAVENOUS (IV); COMPARISON: CR XR CHEST 1V 03/24/2022 12:44 AM FINDINGS: Pulmonary arteries: No filling defects are demonstrated in the pulmonary outflow tract, right or left main pulmonary arteries, ascending or descending pulmonary artery branches orthe peripheral branches. Aorta: Calcified atheromatous plaque formation is seen in a nonaneurysmal thoracic aorta. Lungs: Another nodule is seen in the lateral periphery of the anterior segment of the left upper lobe and measures 10 mm. This is seen on series 4, image 55. Another ill-defined nodule isseen in the superior lingula and measures 9.2 mm on series 4, image 109. Patchy consolidation is seen in the medial segment of the right middle lobe consistent with pneumonitis. Pleural spaces: Consolidation is demonstrated in the right lower lobe with parapneumonic effusion. A small left pleural effusion is seen. Heart: Coronary artery calcifications are present. Lymph nodes: A right inferior hilar lymph node is present measuring 1.3 cm. Bones/joints: Unremarkable. No acute fracture. Soft tissues: Unremarkable. Other findings: Ill-defined nodular densities are seen in the right apex 1 of the nodules measures 8.2 mm and smaller nodule measures 5.6 mm seen on series 4, image 21. IMPRESSION: 1. No ev idence for acute pulmonary thromboembolism. PAGE 1 Signed Report (CONTINUED) Name: [facility] [place] 1940 Age/S: 81 / F [address] [place] [address] Unit #: [id number] Loc: [place] [address] Phys: Bruce Durham MD Acct: [id number] Dis Date: Status: ADM IN PHONE #: [phone] ExamDate: 03/25/2022 145 FAX #: [phone] Reason: PROTOCOL EXAMS: CPT CODE: [id number] CTA CHEST FORPE 96702 (Continued) 2. Bilateral pleural effusions with presence of right lower lobe pneumonitis. 3. Bronchomalacia. 4. Multiple nodules in the lungs. Is there history of primary neoplasm? 5. Patchy pneumonitis in the right middle lobe. 6. Right hilar lymph node. at 1606 Reported and signed by: Federico Taylor M.D. 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 The findings were verbally communicated via telephone conference with Dr Durham at 3:13 PM CDT on 03/25/2022. The findings were acknowledged and understood. Electronically S igned by Anais Mcgill on 03/25/2022 at 1513 Reported and signed by: Casey Mcgill D.O. Report PROCEDURE INFORMATION: Exam: CT Head Without Contrast Exam date and time: 03/25/2022 2:39 PMAge: 81 years old Clinical indication: Stroke-like symptoms; Other: Change in mental status, new aphasia TECHNIQUE: Imaging protocol: Computed tomography of the head without contrast. Radiation optimization: All CT scans at this facility use at least one of these dose optimization techniques: automated exposure control; mA and/or kV adjustment per patient size (includes targeted exams where dose is matched to clinical indication); or iterative reconstruction. Other technique: STROKE PROTOCOL was implemented. COMPARISON: No relevant prior studies available. FINDINGS: Brain: There is mild generalizedbrain parenchymal volume loss. There is no mass effect, midline shift, intracranial hemorrhage or large vessel territory acute cerebral edema. Cerebral ventricles: There is mild ventriculomegaly secondary to white matter volume loss. There is no hydrocephalus. Paranasal sinuses: Visualized sinuses areunremarkable. No fluid levels. Mastoid air cells: Visualized mastoid air cells are well aerated. Bone s/joints: Unremarkable. No acute fracture. Soft tissues: Unremarkable. 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 There is no acute intracranial process. 2. There is mild ventriculomegalysecondary to white matter volume loss. There is no hydrocephalus. 3. There is mild generalized brainparenchymal volume loss. ASSESSMENT: ASPECTS ([place] Stroke Program Early CT Score) is 10. at 1508 Reported and signed by: Casey Mcgill D.O. 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 Exam focused on the arteries. 3D rendering (Not supervised by radiologist): MIP and/or 3D reconstructed images were created by the technologist. Radiationoptimization: All CT scans at this facility use at least one of these dose optimization techniques: automated exposure control; mA and/or kV adjustment per patient size (includes targeted exams where dose is matched to clinical indication); or iterative reconstruction. Contrast material: ISOVUE 300; Contrast volume: 100 ml; Contrast route: INTRAVENOUS (IV); COMPARISON: CT HEAD/BRAIN W/O CONT :39 PM FINDINGS: ANTERIOR CIRCULATION: Right internal carotid artery: Intracranial segment is patent with no significant stenosis. No aneurysm. Right middle cerebral artery: No occlusion or significant stenosis. No aneurysm. Right anterior cerebral artery: No occlusion or significant stenosis. No aneurysm. Left internal carotid artery: Intracranial segment is patent with no significant stenosis. No aneurysm. Left middle cerebral artery: No occlusion or significant stenosis. No aneurysm. Left anterio r cerebral artery: No occlusion or significant stenosis. No aneurysm. POSTERIOR CIRCULATION: Right vertebral artery: No occlusion or significant stenosis. No aneurysm. Left vertebral artery: No occlusion or significant stenosis. No aneurysm. Basilar artery: No occlusion or significant stenosis. No aneurysm. Right posterior cerebral artery: No occlusion or significant stenosis. No aneurysm. Bilateral employer relations representative are present which is normal variant. Left posterior cerebral artery: No occlusion or significant stenosis. No aneurysm. 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 Brain: No definite mass, mass effect, or midline shift. Cerebral ventricles: No ventriculomegaly. Bones/joints:No acute fracture. Soft tissues: Unremarkable. PROCEDURE INFORMATION: Exam: CTA Neck With Contrast Exam date and time: 03/25/2022 2:43 PM Age: 81 years old Clinical indication: Stroke-like symptoms; Other: Change in mental status, new aphasia TECHNIQUE: Imaging protocol: Computed tomographic angiography of the neck with contrast. 3D rendering (Not supervised by radiologist): MIP and/or 3D reconstructed images were created by the technologist. Radiation optimization: All CT scans at this facility use at least one of these dose optimization techniques: automated exposure control; mA and/or kV adjustment per patient size (includes targeted exams where dose is matched to clinical indication); or iterative reconstruction. Contrast material: ISOVUE 300; Contrast volume: 100 ml; Contrast route: INTRAVENOUS (IV); COMPARISON: CT HEAD/BRAIN W/O CONT 03/25/2022 2:39 PM FINDINGS: Right common carotid artery: No flow-limiting stenosis. No dissection or occlusion. Right internal carotid artery: Atherosclerotic calcification of the right carotid bifurcation. No flow-limiting stenosis.No dissection or occlusion. Right external carotid artery: No occlusion or stenosis of the origin. Left common carotid artery: There is common origin of brachiocephalic and left common carotid arteries which is a normal variant. Left internal carotid artery: Atherosclerotic calcification of the left carotid bifurcation. No flow-limiting stenosis. No dissection or occlusion. Left external carotid artery: No occlusion or stenosis of the origin. Right vertebral artery: No flow- limiting stenosis. No dissection or occlusion. The vertebral arteries are codominant. 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 No dissection or occlusion. The vertebral arteries are codominant. Lymph nodes: Multiple small nonspecific mediastinal nodes are present. Soft tissues: No significant soft tissue swelling. Bones/joints: No acute fracture. Lungs: The lungs are emphysematous. A 9.0 mm irregular left upper lobe pulmonary lesion is present and adjacent 3.0 mm pulmonary nodule is present. Pleural spaces: Small right pleural effusion. Other findings: Marked motion artifact degrades image quality. REFERENCES:NASCET CRITERIA. The degree of stenosis in the cervical segment of the internal carotid artery is based on NASCET criteria. Normal is no stenosis. Mild is less than 50% stenosis. Moderate is 50-69% stenosis. Severe is 70% to 99% stenosis. Total occlusion is no detectable patent lumen. IMPRESSION: CTA Head With Contrast, Arteriography No definite acute major large vessel branch occlusion or flow-limiting intracranial stenosis. Please correlate with neurologic symptoms and dedicated MRI brain can be performed for further evaluation. CTA Neck With Contrast 1. Limited study as above. No definite gross flow-limiting internal carotid artery or vertebral stenosis detected. 2. Emphysema. Small right pleural effusion. A 9.0 mm irregular left upper lobe pulmonary lesion is presentand adjacent 3.0 mm pulmonary nodule is present. Please refer to CT chest report for additional details. at 1515 Reported and signed by: Richy Schaefer M.D. 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 [facility] GLUCOSE [id number] 18:00:00 Test Item Value Reference Range Interpretation Comments GLUCOSE BEDSIDE (test 82 MG/DL 70-110 N Perfor med by certified code = GLUBED) 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 [facility] GLUCOSE [id number] 11:57:00 Test Item Value Reference Range Interpretation Comments GLUCOSE BEDSIDE (test 98 MG/DL 70-110 N Perfor med by certified code = GLUBED) 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 [facility] GLUCOSE [id number] 08:32:00 Test Item Value Reference Range Interpretation Comments GLUCOSE BEDSIDE (test 89 MG/DL 70-110 N Perfor med by certified code = GLUBED) 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 [facility] [id number] 05:13:00 Test Item Value Reference Range Interpretation Comments HGBA1C% (test code = HGBA1C%) 6.1 %A1C 4.8-6.0 H COMPREHENSIVE METABOLIC [id number] 05:07:00 Test Item Value Reference Range Interpretation Comments SODIUM (test code = NA) 143 mEq/L 134-147 N POTASSIUM (test code = 3.9 mEq/L 3.4-5.0 N K) CHLORIDE (test code = 114 mEq/L 100-108 H CL) CARBON DIOXIDE (test 22 mEq/l 21-33 N code = CO2) ANION GAP (test code = 11 0-20 N GAP) GLUCOSE (test code = 100 mg/dL 70-110 N GLU) BLOOD UREA NITROGEN 21 mg/dL 7-18 H (test code = BUN) GLOMERULAR FILTRATION 69.0 70-80 L Units of measure = RATE (test code = GFR) ml/mi n/1.73 m2 CREATININE (test code = 0.8 mg/dL 0.6-1.3 N CREAT) TOTAL PROTEIN (test 5.5 g/dL 6.4-8.2 L code = PROT) ALBUMIN (test code = 2.70 g/dL 3.4-5.0 L ALB) CALCIUM (test code = 8.7 mg/dL 8.0-10.5 N CA) BILIRUBIN TOTAL (test 0.40 mg/dL 0.0-1.0 N code = BILT) SGOT/AST (test code = 38 IUnit/L 15-37 H AST) SGPT/ALT (test code = 16 IUnit/L 30-65 L ALT) ALKALINE PHOSPHATASE 88 IUnit/L 20-125 N TOTAL (test code = ALKP) CBC W/AUTO [id number] 04:54:00 Test Item Value Reference Range Interpretation Comments WHITE BLOOD CELL (test code = 20.6 x10 3/uL 4.5-11.0 H WBC) RED BLOOD CELL (test code = 3.16 x10 6/uL 3.54-5.02 L RBC) HEMOGLOBIN (test code = HGB) 8.9 g/dL 11.0-15.0 L HEMATOCRIT (test code = HCT) 27.8 % 33.0-45.0 L MEAN CELL VOLUME (test code = 88.0 fL 81.0-99.0 N MCV) MEAN CELL HGB (test code = 28.2 pg 27.0-33.0 N MCH) MEAN CELL HGB CONCETRATION 32.0 g/dL 33.0-37.0 L (test code = MCHC) RED CELL DISTRIBUTION WIDTH CV 15.4 % 11.5-14.5 H (test code = RDW) RED CELL DISTRIBUTION WIDTH SD 50.0 fL 37.0-54.0 N (test code = RDW-SD) PLATELET COUNT (test code = 86 x10 3/uL 150-400 L PLT) IMMATURE PLATELET FRACTION 17.0 % 0.9-11.2 H (test code = IPF) MEAN PLATELET VOLUME (test 13.6 fL 7.0-9.0 H code = MPV) NEUTROPHIL % (test code = NT%) 84.3 % 56.0-77.0 H IMMATURE GRANULOCYTE % (test 0.8 % 0.0-2.0 N code = IG%) LYMPHOCYTE % (test code = LY%) 7.6 % 14.0-32.0 L MONOCYTE % (test code = MO%) 7.0 % 4.8-9.0 N EOSINOPHIL % (test code = EO%) 0.1 % 0.3-3.7 L BASOPHIL % (test code = BA%) 0.2 % 0.0-2.0 N NUCLEATED RBC % (test code = 0.0 % 0-0 N NRBC%) NEUTROPHIL # (test code = NT#) 17.37 x10 3/uL 2.0-7.6 H IMMATURE GRANULOCYTE # (test 0.17 x10 3/uL 0.00-0.03 H code = IG#) LYMPHOCYTE # (test code = LY#) 1.56 x10 3/uL 1.0-3.8 N MONOCYTE # (test code = MO#) 1.44 x10 3/uL 0.1-0.8 H EOSINOPHIL # (test code = EO#) 0.03 x10 3/uL 0.0-0.2 N BASOPHIL # (test code = BA#) 0.04 x10 3/uL 0.0-0.2 N NUCLEATED RBC # (test code = 0.00 x10 3/uL 0.0-0.1 N NRBC#) MANUAL DIFF REQUIRED (test NO code = MDIFF) POC ARTERIAL BLOOD [id number] 01:05:00 Test Item Value Reference Range Interpretation Comments POC ARTERIAL BLOOD GAS PH (test 7.371 7.35-7.45 N code = POCPHA) POC ARTERIAL BLOOD GAS PCO2 33.9 mmHg 35.0-45 L (test code = UEIVCS0K) POC TCO2 ARTERIAL (test code = 20.8 POCTCO2) POC ARTERIAL BLOOD GAS PO2 (test 63.4 mmHg 80-100.0 L code = KBRHS9U) POC HCO3 ARTERIAL (test code = 19.7 MMOL/L 22.0-26.0 L XHSEPE9U) POC BASE EXCESS (test code = -5.6 MMOL/L -4.0-4.0 L POCBEA) POC O2 SATURATION (test code = 92.0 % 90-100 N POCO2S) FIO2 (test code = FIO2A) 28 % PaO2/FiO2 (test code = FNF4ATW2) 226.42 mm/Hg ABG DELIVERY (test code = ABISAI) Cannula ABG TEMPERATURE (test code = 97.9 F TEMPA) ABG SITE (test code = SITEA) R Radial AIMEE'S TEST (test code = Positive ALLENS) BASIC METABOLIC [id number] 01:05:00 Test Item Value Reference Range Interpretation Comments SODIUM (test code = NA/ABG) 147 MEQ/L 134-147 N POTASSIUM (test code = K/ABG) 3.4 MEQ/L 3.4-5.0 N CHLORIDE (test code = CL/ABG) 115 MEQ/L 100-108 H CREATININE ABG (test code = 0.9 mg/dL 0.6-1.0 N CREAABG) POC IONIZED CALCIUM (test code = 1.31 MMOL/L 1.12-1.32 N POCCA) POC GLUCOSE (test code = POCGLU) 115 MG/DL 70-110 H HEMOGLOBIN [id number] 01:05:00 Test Item Value Reference Range Interpretation Comments HEMOGLOBIN ABG (test code = 11.0 G/DL 11.0-15.0 N HGB/ABG) [id number] 01:05:00 Test Item Value Reference Range Interpretation Comments HEMATOCRIT (test code = HCT/ABG) 32 % 33.0-45.0 L POC LACTIC [id number] 01:05:00 Test Item Value Reference Range Interpretation Comments POC LACTIC ACID (test code = 2.6 mmol/l 0.9-1.7 H POCLAC) GLUCOSE [id number] 00:38:00 Test Item Value Reference Range Interpretation Comments GLUCOSE BEDSIDE (test 90 MG/DL 70-110 N Perfor med by certified code = GLUBED) 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 1 [id number] 00:00:00 [facility] V[facility]CTOR SUAREZName: MICHAELA MATIAS : 1940 Sex: F FAX: Raul Ocampo MD [place]: St: ADM FAX: Trevon Escobar MD [phone] Name: MICHAELA MATIAS [facility] [place] : 1940 Age/S: 81/F [address] [place] [address] Unit #: [id number] Loc: G.M310 [place] [address] Phys: Raul Cruz MD Acct: [id number] Dis Date: Status: ADM IN PHONE #: [phone] Exam Date: 03/24/20225 FAX #: [phone] Reason: wHEEZING, sob EXAMS: CPT CODE: [id number] XR CHEST 1 V 96219 PROCEDURE INFORMATION: Exam: XR Chest Exam date and time: 03/24/2022 12:44 AM Age: 81 years old Clinical indication: Shortness of breath and wheezing; Additional info: Wheezing, SOB TECHNIQUE: Imaging protocol: Radiologic exam of the chest. Views: 1 view. COMPARISON: CR XR CHEST 1V 03/23/2022 9:08 PM FINDINGS: Lungs: Stable mild interstitial pulmonary edema. No focal consolidation. Pleural spaces: Unremarkable. No pleural effusion. No pneumothorax. Heart/Mediastinum: Stable cardiomediastinal silhouette. Bones/joints: No acute abnormality. IMPRESSION: 1. Stable mild interstitial pulmonary edema. No focal consolidation. 2. Stable cardiomediastinal silhouette. at 0129 Reported and signed by: Ed Loza M.D. CC: Raul Cruz MD; Trevon Kimball MD Technologist: RT Otoniel(R) Trnscrd Date/Time/By: 03/24/2022 (128) : By: [email or web address] Orig Print D/T: S: 03/24/2022 (128) PAGE 1 Signed ReportSED RATE [id number] 23:39:00 Test Item Value Reference Range Interpretation Comments SED RATE RADHAERGREN (test code = 24 mm/hr 0-20 H SEDW) CBC W/AUTO [id number] 23:39:00 Test Item Value Reference Range Interpretation Comments WHITE BLOOD CELL (test code = 18.8 x10 3/uL 4.5-11.0 H WBC) RED BLOOD CELL (test code = 3.49 x10 6/uL 3.54-5.02 L RBC) HEMOGLOBIN (test code = HGB) 9.8 g/dL 11.0-15.0 L HEMATOCRIT (test code = HCT) 31.0 % 33.0-45.0 L MEAN CELL VOLUME (test code = 88.8 fL 81.0-99.0 N MCV) MEAN CELL HGB (test code = 28.1 pg 27.0-33.0 N MCH) MEAN CELL HGB CONCETRATION 31.6 g/dL 33.0-37.0 L (test code = MCHC) RED CELL DISTRIBUTION WIDTH CV 15.5 % 11.5-14.5 H (test code = RDW) RED CELL DISTRIBUTION WIDTH SD 50.6 fL 37.0-54.0 N (test code = RDW-SD) PLATELET COUNT (test code = 88 x10 3/uL 150-400 L PLT) MEAN PLATELET VOLUME (test 12.9 fL 7.0-9.0 H code = MPV) NEUTROPHIL % (test code = NT%) 83.6 % 56.0-77.0 H IMMATURE GRANULOCYTE % (test 0.8 % 0.0-2.0 N code = IG%) LYMPHOCYTE % (test code = LY%) 8.9 % 14.0-32.0 L MONOCYTE % (test code = MO%) 6.5 % 4.8-9.0 N EOSINOPHIL % (test code = EO%) 0.1 % 0.3-3.7 L BASOPHIL % (test code = BA%) 0.1 % 0.0-2.0 N NUCLEATED RBC % (test code = 0.0 % 0-0 N NRBC%) NEUTROPHIL # (test code = NT#) 15.71 x10 3/uL 2.0-7.6 H IMMATURE GRANULOCYTE # (test 0.15 x10 3/uL 0.00-0.03 H code = IG#) LYMPHOCYTE # (test code = LY#) 1.68 x10 3/uL 1.0-3.8 N MONOCYTE # (test code = MO#) 1.22 x10 3/uL 0.1-0.8 H EOSINOPHIL # (test code = EO#) 0.01 x10 3/uL 0.0-0.2 N BASOPHIL # (test code = BA#) 0.02 x10 3/uL 0.0-0.2 N NUCLEATED RBC # (test code = 0.00 x10 3/uL 0.0-0.1 N NRBC#) MANUAL DIFF REQUIRED (test NO code = MDIFF) PLT [id number] 23:39:00 Test Item Value Reference Range Interpretation Comments PLATELET ESTIMATE (test code 96-120 THOUSAND ADEQUATE = PLTEST) PLATELET MORPHOLOGY (test LARGE PLATELETS code = PLTMORPH) LIPOPROTEIN [id number] 23:27:00 Test Item Value Reference Range Interpretation Comments LIPOPROTEIN LDL 26.4 mg/dL 0-100 N <100 OPTIMAL 100-129 NEAR (test code = LDL) OPTIMAL/AB OVE [id number] 89 HIGH>CP=383 MILES Y HIGH*Guidelines provided by the National Cholesterol EducationProgra m Adult Treatment Panel III PROTHROMBIN [id number] 23:02:00 Test Item Value Reference Range Interpretation Comments PROTHROMBIN TIME 13.1 SECONDS 9.3-12.9 H PATIENT (test code = PTP) INTERNATIONAL NORMAL 1.2 0.8-1.2 N TARGET INR BY RATIO (test code = INDICATIO N Indication INR) INR1. Prophylax is of venous thrombos is 2.0 - 3.0 (orthoped ic surgery), Proph ylaxis of venous throm bosis (other than hig h-risk surgery), Treat ment of Deep Vein Thrombosis/Pulm onary Embolism, Preve ntion of systemic emb olism - Tissue heart va lves, Acute Myocardia l Infarction (to prevent systemic emboli sm), Valvular heart disease, Atrial Fibrillation, Bileaflet mecha nical valve in aortic position.2. Mec hanical prosthetic valv es (high risk), 2. 5 - 3.5 Presence of Lup us Anticoagulant o r Antiphospholipi d Antibodies, Pre vention of systemic emb olism - Acute Myocardia l Infarction (to prevent recurrent infar ct). COMPREHENSIVE METABOLIC [id number] 23:01:00 Test Item Value Reference Range Interpretation Comments SODIUM (test code = NA) 143 mEq/L 134-147 N POTASSIUM (test code = 3.9 mEq/L 3.4-5.0 N K) CHLORIDE (test code = 113 mEq/L 100-108 H CL) CARBON DIOXIDE (test 24 mEq/l 21-33 N code = CO2) ANION GAP (test code = 10 0-20 N GAP) GLUCOSE (test code = 114 mg/dL 70-110 H GLU) BLOOD UREA NITROGEN 22 mg/dL 7-18 H (test code = BUN) GLOMERULAR FILTRATION 60.2 70-80 L Units of measure = RATE (test code = GFR) ml/mi n/1.73 m2 CREATININE (test code = 0.9 mg/dL 0.6-1.3 N CREAT) TOTAL PROTEIN (test 6.3 g/dL 6.4-8.2 L code = PROT) ALBUMIN (test code = 3.20 g/dL 3.4-5.0 L ALB) CALCIUM (test code = 9.1 mg/dL 8.0-10.5 N CA) BILIRUBIN TOTAL (test 0.40 mg/dL 0.0-1.0 N code = BILT) SGOT/AST (test code = 51 IUnit/L 15-37 H AST) SGPT/ALT (test code = 18 IUnit/L 30-65 L ALT) ALKALINE PHOSPHATASE 95 IUnit/L 20-125 N TOTAL (test code = ALKP) [id number] 23:01:00 Test Item Value Reference Range Interpretation Comments PHOSPHOROUS (test code = PHOS) 3.0 MG/DL 2.5-4.9 N [id number] 23:01:00 Test Item Value Reference Range Interpretation Comments MAGNESIUM (test code = MAG) 1.80 mg/dL 1.80-2.40 N TROP-I HIGH [id number] 23:01:00 Test Item Value Reference Range Interpretation Comments TROP-I HIGH 112 ng/L 0-34 H CAUTION: Units of the SENSITIVITY (test current te st methodology code = TROPIHS) (ng/L) diffe rfrom the prior test meth odology (ng/mL) by a fa ctor of 1000. 99t h Percentile Uppe r Reference Limit (URL): Fe males: 34 ng/LMales: 54 n g/L In order to distin guish acute elevations of h igh sensitivitytrop onin from other clinical conditions, the FourthUnive rsal Definition of M yocardial Infarction stressesclinica l assessment and the demonstration o f a rise and/orfall in s erial troponin result s above the URL. These resu lts were obtained using Siemens [employer]ellica IM TnI Hreagent. Results from di fferent methodologies s hould not becompared to o ne another as quantitative results and URLs mayvar y by method. LACTIC [id number] 23:00:00 Test Item Value Reference Range Interpretation Comments LACTIC ACID (test code = LACT) 1.4 mmol/L 0.4-1.9 N B-TYPE NATRIURETIC [id number] 23:00:00 Test Item Value Reference Range Interpretation Comments B-TYPE NATRIURETIC PEPTIDE (test 944.0 PG/ML 0-100 H code = BNP) C REACTIVE [id number] 23:00:00 Test Item Value Reference Range Interpretation Comments C REACTIVE PROTEIN (test code = 137.0 mg/L <10.0 H CRP) GLUCOSE [id number] 21:35:00 Test Item Value Reference Range Interpretation Comments GLUCOSE BEDSIDE (test 114 MG/DL 70-110 H Perfor med by certified code = GLUBED) 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 1940 Sex: F FAX: Trevon Tello MD [phone] [place]: St: [facility] FAX: Sherry Gregory MD [phone] [facility]: 1940 Age/S: 81/F [address] [place] [address] Unit #: [id number] Loc: G.M310 [place], [place] [address]Dimv: Trevon Kimball MD Acct: [id number] Dis Date: Status: ADM IN PHONE #: [phone] Exam Date: 0 03/23/20222148 FAX #: [phone] Reason: h/o CHF EXAMS: CPT CODE: [id number] XR CHEST 1 V 12028 PROCEDURE INFORMATION: Exam: XR Chest Exam date and time: 03/23/2022 9:08 PM Age: 81 years old Clinical indication: Other: H/o chf TECHNIQUE: Imaging protocol: Radiologic exam of the chest. Views: 1 view. CO MPARISON: No relevant prior studies available. FINDINGS: Lungs: Mild decreased lung volumes. No consolidation. Pleural spaces: Unremarkable. No pleural effusion. No pneumothorax. Heart/Mediastinum: Heart size is within normal limits. Previous midline sternotomy Vasculature is unremarkable. Bones/joints: Unremarkable. IMPRESSION: No acute cardiopulmonary findings. at 2217 Reported and signed by: Rodrick Morales M.D. CC: Trevon Kimball MD; Sherry Galvez Technologist: RT Evelyne(Blair) Trnscrd Date/Time/By: 03/23/2022 (2216) : By: Altaf Orig Print D/T: S: 03/23/2022 (2216) PAGE 1 Signed Report [id number] 22:23:00 Test Item Value Reference Range Interpretation Comments APPEARANCE (test code = Clear Clear [id number]) COLOR (test code = Colorless Yellow A 0912610069) PH (test code = 4.8-8.0 1700065121) SP GRAVITY (test code = 1.003-1.030 8197727770) GLU U QUAL (test code = Negative Negative 1695136444) BLOOD (test code = Large Negative A 0395652170) KETONES (test code = Negative Negative 9192727435) PROTEIN (test code = 30 mg/dL Negative A 2887-8) UROBILIN (test code = 0.2 mg/dL See_Comment [Auto mated message] 8503221837) The system [employer] generated this result transmit soraya reference range : 0-1.0 mg/dL. Th e reference range was not used to interpret this result as normal/abnormal . BILIRUBIN (test code = Negative Negative 8200721323) NITRITE (test code = Negative Negative 6895921857) LEUK KALYANI (test code = Small Negative A 5006621510) RBC/HPF (test code = See_Comment [Autom ated message] 8756682505) The system [employer] generated this result transmit soraya reference range : 0 - 3 HPF. The refe rence range was not u sed to interpret th is result as normal/abnormal . WBC/HPF (test code = See_Comment H [Autom ated message] 6034270567) The system [employer] generated this result transmit soraya reference range : 0 - 5 HPF. The refe rence range was not u sed to interpret th is result as normal/abnormal . BACTERIA (test code = Negative Negative 9561281838) AMORPHOUS (test code = Few HPF 1318081630) Lab Interpretation (test Abnormal code = 24825-7) [facility] WO [id number] 21:24:28CT Abdomen and Pelvis without contrast. CLINICAL [...] No free air or free fluid. No lym phadenopathy.Pancreas and Adrenals: Unremarkable pancreas and adrenal glands. Fattyreplacement of portions of the head of the pancreas noted.Kidneys and Ureters: No visible calculi in the renal collecting systems. No hydroureter or hydronephrosis. At the lower pole of the right kidney,there is a small7 mm low- density lesion and in the posterior cortex nearthe upper pole of left kidney, there is an 8mm low-density lesion whichcould be incidental small cysts.Vessels: Atherosclerosis. No aortic aneurysm.Retroperitoneum: No abnormal fluid or lymphadenopathy.Bowel: Constipation. Normal appendix. Unremarkable small bowel gas pattern.Bladder and Reproductive Organs: Hysterectomy. No gross pathology inincompletely distended urinary bladder. Bones: Lumbar lordosis with post surgical changes at lower 2 lumbar levels.Right hip joint arthritis.Soft tissues: 3.5 x 2 cm size epigastric hernia containing fatand smallblood vessels without any signs of strangulation or incarceration.CONCLUSION: No acute findi ngs detected in CT scan of abdomen and pelvis.Specifically no kidney stones or hydronephrosis.[facility] RockAlessandra [id number] 20:10:00 Test Item Value Reference Range Interpretation Comments TROPONIN I (test <0.012 See_Comment [Automated code = 7982153747) message] The system which generated this result [...] ? Lab Interpretation Normal (test code = 77559-1) [facility] Metabolic Panel (NA, K, CL, CO2, GLUCOSE, BUN, CREATININE, CA)2019-03-20 19:58:00 Test Item Value Reference Range Interpretation Comments NA (test code = 143 mmol/L 135-145 6870219618) K (test code = 3.4 mmol/L 3.5-5 L 9759880525) CL (test code = 104 mmol/L 98-108 5567201819) CO2 TOTAL (test code = 28 mmol/L 23-31 9192866097) AGAP (test code = 2-16 5524451028) BUN (test code = 19 mg/dL 7-23 6403141908) GLUCOSE (test code = 106 mg/dL 70-110 8050043766) CREATININE (test code = 1.54 mg/dL 0.5-1.04 H 9801963659) CALCIUM (test code = 9.4 mg/dL 8.6-10.6 6917708953) eGFR Calculation mL/min/1.73m2 (Non-) (test code = 6593406829) eGFR Calculation mL/min/1.73m2 () (test code = 8335072974) MEGHNA (test code = MEGHNA) Association of Glomerular Filtration Rate (GFR) and Staging of Kidney Disease*+ + + +| GFR (mL/min/1.73 m2)?| With Kidney Damage?|?Without Kidney Damage+ --------+ --------+ +|?>90?|?S richiee one?|? Normal?+ ---------+ ---------+ +|?60-89? |?Stage two?|? [...] tests). Lab Interpretation Abnormal (test code = 87875-0) [facility] (ALB, T.PRO, BILI T, BU/BC, ALT, AST, ALK PHOS)2019-03-20 19:58:00 Test Item Value Reference Range Interpretation Comments TOTAL BILI (test code = 7426026143) 0.6 mg/dL 0.1-1.1 BILI UNCON (test code = 3357085657) 0.3 mg/dL 0.1-1.1 BILI CONJ (test code = 5530514797) 0.0 mg/dL 0-0.3 T PROTEIN (test code = [id number]) 8.1 g/dL 6.3-8.2 ALBUMIN (test code = 2868077100) 4.3 g/dL 3.5-5 ALK PHOS (test code = 1328479937) 132 U/L 34-122 H ALT(SGPT) (test code = 4668780172) 107 U/L 9-51 H AST(SGOT) (test code = 9172458320) 110 U/L 13-40 H Lab Interpretation (test code = Abnormal 87646-0) [facility] [id number] 19:58:00 Test Item Value Reference Range Interpretation Comments LIPASE (test code = 4987223881) 202 U/L 0-220 Lab Interpretation (test code = Normal 40011-0) [facility] WITH [id number] 19:47:00 Test Item Value Reference Range Interpretation Comments WBC (test code = See_Comment [Automated 6690-2) message] The sy stem which generated this result transmitted reference range : 4.30 - 11.10 10*3/?L. The reference range was not used to interpret this result as normal/abnormal . RBC (test code = See_Comment [Automated 789-8) message] The sy stem which generated this [...] RDW-SD (test code = 48.7 fL 39-49.9 39531-4) RDW-CV (test code = 14.0 % 12-15.5 788-0) PLT (test code = See_Comment [Automated 777-3) message] The sy stem which generated this result transmitted reference range : 166 - 358 10*3/ ?L. The reference r abad was not used to interpret this result as normal/abnormal . MPV (test code = 10.5 fL 9.5-12.9 49712-5) NRBC/100 WBC (test See_Comment [Automat ed code = 7064803755) message] The system which generated this result transmitted reference range : 0.0 - 10.0 /100 WBCs. The refer ence range was not u sed to interpret th is result as normal/abnormal . NRBC x10^3 (test code <0.01 See_Comment [Auto mated = 0373752203) message] The s ystem which generated this result transmitted reference range : 10*3/?L. The reference range was not used to interpret this result as normal/abnormal . GRAN MAT (NEUT) % 59.2 % (test code = 770-8) IMM GRAN % (test code 0.40 % = 3570601196) LYMPH % (test code = 32.4 % 736-9) MONO % (test code = 6.0 % 5905-5) EOS % (test code = 1.4 % 713-8) BASO % (test code = 0.6 % 706-2) GRAN MAT x10^3(ANC) 5.97 10*3/uL 1.88-7.09 (test code = 8797766561) IMM GRAN x10^3 (test 0.04 10*3/uL 0-0.06 code = 1231775911) LYMPH x10^3 (test code 3.26 10*3/uL 1.32-3.29 = 731-0) MONO x10^3 (test code 0.60 10*3/uL 0.33-0.92 = 742-7) EOS x10^3 (test code = 0.14 10*3/uL 0.03-0.39 711-2) BASO x10^3 (test code 0.06 10*3/uL 0.01-0.07 = 704-7) Lab Interpretation Abnormal (test code = 02038-4) [facility] 1 [id number] 19:17:17HISTORY: Weakness. TECHNIQUE: Portable AP erect view [...] disease.[facility] Notes Date/Time Note Provider Source 2022-04-07 00:00:00-00:00 [facility] ([facility]) Hospitalist Discharge Summary REPORT#:[id number] REPORT STATUS: Signed DATE:04/07/22 TIME: 0000 PATIENT: MICHAELA MATIAS UNIT #: [id number] ROOM[address]BED: [address] : 41 AGE: 81 SEX: F ATTEND: Justyn Bueno MD ADM AUTHOR: Balwinder Bueno MD * ALL edits or amendments must be made on the [employer]/computer document * General Information Date of admission: Observation Start Date: Date of admission: 03/23/22 Discharge date: 04/06/22 Admission diagnosis: 1. Septic shock 2. Acute endocarditis 3. Acute delirium with metabolic encephalopathy Discharge diagnosis: 1. Septic shock 2. Acute endocarditis 3. Acute delirium with metabolic encephalopathy Hospital course: 81 y/o with dementia/HTN/CAD/CHF/aortic regurge/CKD -stage III/DM who presents with persistent bacteremia (presumed MRSA) causi ng sepsis Infective endocarditis Recurrent gram positive bacteremia -at [facility] son she was on IV vancomycin IGLESIA showed vegetation in the pulmonary valve culture ....MRSA She will need PICC line after blood culture nega tive 03/28- last bld cx 07/18 still positive. 03/29- repeat bld cx to be dr pedraza today. once negative, picc line and [facility] 03[facility]30- awiting ID clearance for PICC placement an d for LTACH transfer. bld cx negative 24 hours so far. 03/31- bld cx negative for 48 hours. picc today? then LTACH? Abonrmal CT chest 03/28- pleural effusion, mult iple nodules, ?pneumoina. ask pulmonary to evaluate. 03/29- need repeat CT chest to f/u on nodules. 03/30- need OUPT repeat CT chest for the nodules Delirium 03/28- MRI brain negative. neuro has signed off Poor po intake 03/28- ask nutrtion to see 03/30 - d/w and pt's daughter ( wa nts daughter to make any decisions). Daughter, Rosemary, does not want a do bhoff for feeding for now. Septic shock - Resolved patient had septic shock at [place] [facility] req uiring pressors and pt was resussitated with IVF and albumin. Continue to monitor pressure CKD - follow electrolytes, UOP HTN - Per cardiology 03/30- Pt is bradycardic and BP is a bit high...w ill change lopressor to coreg and zestril. 03/31- controlled with zestril/coreg DVT prophylaxis Lovenox subcu 03/26: on physical exam today aphasia which is grewal dden , code stroke called, CT head, no bleeding, discussed with ICC and neuro. ,her symptoms improved (TIA?) discussed with grandughter (Rosemary), and the pat ient's . BC again growing MRSA, discussed with Dr Lombardo, n ow on Teflaro and vanco neuro check, will keep in ICU 03/27: patient still not back to baseline, confus ed, MRI -ve for stroke, discussed with neuro, delirium? on Teflaro and v anc for Infective endocardititis. 03/28- awaiting transfer to t he floor. on IV vanc/teflaro. d/w family at bedside 03/29- awaiting transfer to t he floor. if repeat blx cx negative today, then PICC and 6 more weeks of IV abx at LTACH. d/w case jaime jarvis. 03/30- change BP meds to avoid bradycardi a. awaiting ID clearance for PICC line and then transfer to LTACH for 6 weeks o f IV abx for endocarditis...d/w family about dobhoff for feeding and they do NOT want d obhoff for now, since pt is eating a little. check labs in am. d/w bedside mónica mock. 03/31- transfered to the floor. awaiting PICC and then transfer to LTACH. 04/01-PICC line has not been placed yet. Awaiting for transfer to LTAC. 04/03-no new complains. Per family plan is to go home with HH and home IV antibiotics. PICC line 04/05-plan to d/c home with HH and iv antibiotics . d/c home once arranged. 04/06 arrangement for home health done. Okay to d ischarge home. Consultants: cardiology, critical/intens ivist, hospitalist, infectious disease Pt. condition on discharge: improved, stable Allergies: Allergies: meperidine (Coded, NAUSEA VOMITING, 03/23/22) Med Rec Med Rec Discharge meds: Continue taking these medications: CARVEDILOL (COREG) 3.125 MG TAB 3.125 MILLIGRAM ORAL ONE TIME ONLY. LISINOPRIL (ZESTRIL) 2.5 MG TAB 2.5 MILLIGRAM ORAL DAILY. ROSUVASTATIN (CRESTOR) 40 MG TAB 40 MILLIGRAM ORAL DAILY. FLUoxetine (PROzac) 20 MG CAP 20 MILLIGRAM ORAL DAILY. OMEPRAZOLE ER (OMEPRAZOLE ER) 20 MG CAP.DR 20 MILLIGRAM ORAL DAILY. OXYBUTYNIN (DITROPAN) 5 MG TAB 5 MILLIGRAM ORAL ONE TIME ONLY. MEMANTINE (NAMENDA) 10 MG TAB 10 MILLIGRAM ORAL DAILY. MEMANTINE (NAMENDA) 10 MG TAB 10 MILLIGRAM ORAL DAILY. Objective VS/I O Last Documented: Result Date Time Pulse Ox 95 04/06 1544 B/P 130/62 04/06 1544 B/P Mean 84.7 04/06 1544 O2 Delivery Room air 04/06 1544 Temp 98.2 04/06 1544 Pulse 66 04/06 1544 Resp 18 04/06 1544 FiO2 21 04/05 0100 O2 Flow Rate 0 03/30 0900 General appearance: alert, awake Head/Eyes: atraumatic, normocephalic ENT: normal ear left, normal ear right, normal n ose Neck: full range of motion, no JVD Cardiovascular: normal heart sounds, regular rat e rhythm Respiratory: aerating well, clear to auscultatio n, symmetric expansion, no distress Abdomen: non-tender, normal bowel sounds, soft, no distention Extremities: no clubbing, no cyanosis, no edema 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, no sensory deficit s Considered stroke alert: no Skin: intact, normal color, no rash Results Findings/Data: Laboratory Tests: 04/06 0540 Chemistry Sodium (134 - 147 mEq/L) 140 Potassium (3.4 - 5.0 mEq/L) 3.8 Chloride (100 - 108 mEq/L) 106 Carbon Dioxide (21 - 33 mEq/l) 27 Anion Gap (0 - 20) 11 BUN (7 - 18 mg/dL) 19 H Creatinine (0.6 - 1.3 mg/dL) 1.1 Glomerular Filtr Rate (70 - 80) 47.8 L Glucose (70 - 110 mg/dL) 99 Calcium (8.0 - 10.5 mg/dL) 8.2 Hematology WBC (4.5 - 11.0 x10 3/uL) 7.2 RBC (3.54 - 5.02 x10 6/uL) 2.98 L Hgb (11.0 - 15.0 g/dL) 8.3 L Hct (33.0 - 45.0 %) 26.7 L MCV (81.0 - 99.0 fL) 89.6 MCH (27.0 - 33.0 pg) 27.9 MCHC (33.0 - 37.0 g/dL) 31.1 L RDW (11.5 - 14.5 %) 16.5 H Plt Count (150 - 400 x10 3/uL) 292 MPV (7.0 - 9.0 fL) 11.4 H Neut % (Auto) (56.0 - 77.0 %) 60.8 Lymph % (Auto) (14.0 - 32.0 %) 29.1 Phelps % (Auto) (4.8 - 9.0 %) 8.6 Eos % (Auto) (0.3 - 3.7 %) 0.4 Baso % (Auto) (0.0 - 2.0 %) 0.7 Neut # (Auto) (2.0 - 7.6 x10 3/uL) 4.36 Lymph # (Auto) (1.0 - 3.8 x10 3/uL) 2.09 Phelps # (Auto) (0.1 - 0.8 x10 3/uL) 0.62 Eos # (Auto) (0.0 - 0.2 x10 3/uL) 0.03 Baso # (Auto) (0.0 - 0.2 x10 3/uL) 0.05 Abs Immat Gran (auto) (0.00 - 0.03 x10 3/uL) 0. 03 Add Manual Diff NO Immature Gran % (0.0 - 2.0 %) 0.4 Nucleated RBC % (0 - 0 %) 0.0 Nucleated RBCs # (Man) (0.0 - 0.1 x10 3/uL) 0.0 0 Discharge Instructions PCP PCP follow-up: PCP: No Primary or Family Physician Discharge to: Home Health wPlan of Care Additional Discharge Routines: PCP Follow-Up, Co nsultant Follow-Up Diet: Regular Activity: As Tolerated Prescriptions: e-prescribe Discharge management: less than 30 mins Time spent: Time spent on patient care (minutes): 28 Follow-up Appointments PCP follow-up: PCP: No Primary or Family Physician PCP follow up timeframe: In 2-3 weeks Special instructions: CALL TO MAKE FOLLOW UP APPOINTMENT Consulting provider 1: Provider 1: Kisha Kohli MD, MD Specialty: Infectious Disease Consult follow up timeframe: In 1-2 weeks Special instructions: CALL TO MAKE FOLLOW UP APPOINTMENT Consulting provider 2: Provider 2: Shyla Jackson MD Specialty: Pulmonary Disease Follow up timeframe: In 2-3 weeks Special instructions: CALL TO MAKE FOLLOW UP APPOINTMENT Quality: Discharge Advanced Care Plan 65 or Older Discussed with: surrogate decis. maker Discussion included: living will (yes), power of collections attorney (yes), code status ( full code) Current Medications Current medication review: I attest that the foregoing medication list in t he medical record is true, accurate, and complete to the best of my knowled ge. at [facility] RPT #:[id number] END OF REPORT 2022-04-06 17:20:00-00:00 [facility] ([facility]) Cardiology Progress Note REPORT#:[id number] REPORT STATUS: Signed DATE:04/06/22 TIME: 1719 PATIENT: MICHAELA MATIAS UNIT #: [id number] ROOM/BED: 5503-1 : 41 AGE: 81 SEX: F ATTEND: Justyn Bueno MD ADM AUTHOR: Sherry Gonsales MD * ALL edits or amendments must be made on the el [employer]/computer document * Objective General VS/I O: Vital Signs: Date Time Temp Pulse Resp B/P B/P Pulse O2 O2 F low FiO2 Mean Ox Delivery Rate 04/06 1544 36.8 66 18 130/62 84.7 95 Room air 04/06 1111 36.6 67 18 123/64 83.5 93 Room air 04/06 0535 36.8 66 16 128/62 84.2 92 Room air 04/05 1907 36.1 69 16 110/60 76.8 95 Room air PATIENT WEIGHT: Weight (lb): 106 Weight (oz): 7.73 Weight (kg): 48.300 Medications: Active Meds + DC'd Last 24 Hrs Daptomycin (CUBICIN 500MG) 400 MG Q24H IV (DCD) Sodium Chloride (SODIUM CHLORIDE 0.9%) 50 ML Sodium Chloride (SODIUM CHLORIDE) 10 ML BID IV ( DCD) Sodium Chloride (SODIUM CHLORIDE) 10 ML ASDIR VT N IV (DCD) Carvedilol (COREG) 3.125 MG C BK DIN PO (DCD) Lisinopril (ZESTRIL) 2.5 MG DAILY PO (DCD) Memantine (NAMENDA) 10 MG DAILY PO (DCD) Donepezil HCl (ARICEPT) 10 MG BEDTIME PO (DCD) Acetaminophen (TYLENOL) 650 MG Q4H PRN PRN RECTA L (DCD) Hydralazine HCl (APRESOLINE) 10 MG Q6H PRN PRN I V (DCD) Enoxaparin Sodium (lovENOX) 30 MG Q24H SUBQ (DC D) Lactated Ringer's (LACTATED RINGERS) 1,000 ML GILLIAN MARTY IV (DCD) Acetaminophen (TYLENOL) 650 MG Q4H PRN PRN PO (D CD) Ondansetron HCl (ZOFRAN) 4 MG Q4H PRN PRN IV (DC D) Dextrose/Water (DEXTROSE 50% W SYRINGE) 25 ML DIR PRN IV (DCD) Dextrose/Water (DEXTROSE 50% W SYRINGE) 50 ML DIR PRN IV (DCD) Glucagon (GLUCAGON) 1 MG ASDIR PRN IM (DCD) Insulin Human Lispro (HUMALOG) 0 AC HS SUBQ (DCD ) Physical Exam General appearance: awake Neck: full range of motion, non-tender, normal thyroid, supple/no meningismus, no bruit/NL carotids, no JVD, no lymphadenopathy , no masses or swelling Cardiovascular: CV assessment: regular rate and rhythm Respiratory: clear to auscultation, no distress Abdomen: non-tender, normal bowel sounds , no distention, no guarding, no mass/ organomegaly, no pulsatile mass, no rebound Upper extremity: UE assessment: normal capillary refill, no ammy a Lower extremity: LE assessment: edema, normal capillary refill Considered stroke alert: no Results Findings/Data: Laboratory Tests 04/06 0540 Chemistry Sodium (134 - 147 mEq/L) 140 Potassium (3.4 - 5.0 mEq/L) 3.8 Chloride (100 - 108 mEq/L) 106 Carbon Dioxide (21 - 33 mEq/l) 27 Anion Gap (0 - 20) 11 BUN (7 - 18 mg/dL) 19 H Creatinine (0.6 - 1.3 mg/dL) 1.1 Glomerular Filtr Rate (70 - 80) 47.8 L Glucose (70 - 110 mg/dL) 99 Calcium (8.0 - 10.5 mg/dL) 8.2 Laboratory Tests 04/06 0540 Hematology WBC (4.5 - 11.0 x10 3/uL) 7.2 RBC (3.54 - 5.02 x10 6/uL) 2.98 L Hgb (11.0 - 15.0 g/dL) 8.3 L Hct (33.0 - 45.0 %) 26.7 L MCV (81.0 - 99.0 fL) 89.6 MCH (27.0 - 33.0 pg) 27.9 MCHC (33.0 - 37.0 g/dL) 31.1 L RDW (11.5 - 14.5 %) 16.5 H Plt Count (150 - 400 x10 3/uL) 292 MPV (7.0 - 9.0 fL) 11.4 H Neut % (Auto) (56.0 - 77.0 %) 60.8 Lymph % (Auto) (14.0 - 32.0 %) 29.1 Phelps % (Auto) (4.8 - 9.0 %) 8.6 Eos % (Auto) (0.3 - 3.7 %) 0.4 Baso % (Auto) (0.0 - 2.0 %) 0.7 Neut # (Auto) (2.0 - 7.6 x10 3/uL) 4.36 Lymph # (Auto) (1.0 - 3.8 x10 3/uL) 2.09 Phelps # (Auto) (0.1 - 0.8 x10 3/uL) 0.62 Eos # (Auto) (0.0 - 0.2 x10 3/uL) 0.03 Baso # (Auto) (0.0 - 0.2 x10 3/uL) 0.05 Abs Immat Gran (auto) (0.00 - 0.03 x10 3/uL) 0. 03 Add Manual Diff NO Immature Gran % (0.0 - 2.0 %) 0.4 Nucleated RBC % (0 - 0 %) 0.0 Nucleated RBCs # (Man) (0.0 - 0.1 x10 3/uL) 0.0 0 Diagnosis, Assessment Plan Problem List/A P: 1. MRSA bacteremia 2. Sepsis 3. Lactic acidosis 4. Infective endocarditis of pulmonary valve Consultants: cardiology, critical/intens ivist, hospitalist, infectious disease Free Text DxA P Notes Free Text DxA P Notes: 03/24 awake, stable BP , IGLESIA showed veg on pulm valve, ID was informed. IV abx. 03/25 doing well, stable, on IV abx, high BP will star t med, ok to go to tele. 03/26 awake, doing ok, had TIA yes terday, CT was ok, will get echo with bubble study, on IV abx. 03/27 resting, confusion and dementia worse, r estart meds, ok to go to tele, cont IV abx, no PFO on echo, EF is better. 03/28 doing much better today, awake, stable cardiac w ise, on IV abx, in NSR, cont same tx. 03/29 stable, doing ok, awake, no new issues, on IV ab x, going to floor. 03/30 doing ok, stable, no new events, BP is better no w on JAY, give her a dose of lasix for the edema. 03/31 doing well this am, awake, stable on abx , no edema post lasix, cont same care. 04/01 resting, no distress, cont IV abx, awaiting plac ement. 04/02 doing well, awake, eating, on IV abx, awaiting l ine placement then LTAC. 04/03 resting, refusing meds, rehab eval, cont IV abx. 04/04 pt is doing ok/same, family is thinking about [facility], IV abx at home. 04/05 pt is doing ok, awake, on iv abx, awaiting CM fo r home health care for abx infusion. 04/06 doing ok, stable, is going home, on home IV abx, with home health. Electronically Signed by Sherry Gonsales MD on 0 04/06/22 at 1721 RPT #:[id number] END OF REPORT 2022-04-06 12:22:00-00:00 [facility]) Pulmonology Progress Note REPORT#:[id number] REPORT STATUS: Signed DATE:04/06/22 TIME: 1222 PATIENT: MICHAELA MATIAS UNIT #: [id number] ROOM/BED: [place] [address] : 41 AGE: 81 SEX: F ATTEND: Justyn Bueno MD ADM AUTHOR: Shyla Jackson MD * ALL edits or amendments must be made on the [employer]/computer document * Subjective Chief complaint: no acute events overnight on room air Review of Systems ROS Constitutional: Denies: fatigue, fever, lethargy. Respiratory: Denies: hemoptysis, pleurisy, wheezing. Musculoskeletal: Denies: extremity pain, joint swelling, thoracic pain. Heme: Denies: adenopathy, bleeding, bruising, petechia e, other. Objective General VS/I O: Last Documented: Result Date Time Pulse Ox 93 04/06 1111 B/P 123/64 04/06 1111 B/P Mean 83.5 04/06 1111 O2 Delivery Room air 04/06 1111 Temp 36.6 04/06 1111 Pulse 67 04/06 1111 Resp 18 04/06 1111 FiO2 21 04/05 0100 O2 Flow Rate 0 03/30 0900 PATIENT WEIGHT: Weight (lb): 106 Weight (oz): 7.73 Weight (kg): 48.300 Medications: Active Meds + DC'd Last 24 Hrs Daptomycin (CUBICIN 500MG) 400 MG Q24H IV (CKD) Sodium Chloride (SODIUM CHLORIDE 0.9%) 50 ML Sodium Chloride (SODIUM CHLORIDE) 10 ML BID IV Sodium Chloride (SODIUM CHLORIDE) 10 ML ASDIR VT N IV Carvedilol (COREG) 3.125 MG C BK DIN PO Lisinopril (ZESTRIL) 2.5 MG DAILY PO Memantine (NAMENDA) 10 MG DAILY PO Donepezil HCl (ARICEPT) 10 MG BEDTIME PO Acetaminophen (TYLENOL) 650 MG Q4H PRN PRN RECTA L Hydralazine HCl (APRESOLINE) 10 MG Q6H PRN PRN I V Enoxaparin Sodium (lovENOX) 30 MG Q24H SUBQ Lactated Ringer's (LACTATED RINGERS) 1,000 ML GILLIAN MARTY IV Acetaminophen (TYLENOL) 650 MG Q4H PRN PRN PO Ondansetron HCl (ZOFRAN) 4 MG Q4H PRN PRN IV Dextrose/Water (DEXTROSE 50% W SYRINGE) 25 ML DIR PRN IV (CKD) Dextrose/Water (DEXTROSE 50% W SYRINGE) 50 ML DIR PRN IV (CKD) Glucagon (GLUCAGON) 1 MG ASDIR PRN IM Insulin Human Lispro (HUMALOG) 0 AC HS SUBQ Physical Exam General appearance: alert, awake, no acu te distress, pleasant, conversational, no respiratory distress Head/eyes: atraumatic, normocephalic, PERRL, PER RLA ENT: ENT: moist mucosal membranes Cardiovascular: normal heart sounds, normal S1/S 2, regular rate rhythm, no murmur, no rub, no gallop Respiratory/chest: aerating well, clear to auscultation, symmetric expansion, no distress, no tenderness Abdomen: soft, non-tender Extremities: no cyanosis, no edema, no pedal wesley ma Musculoskeletal: no muscle spasm 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: alert Considered stroke alert: no Results Findings/Data: Laboratory Tests 04/06/22 0540: [Embedded Image Not Available] Laboratory Tests 04/06 540 Chemistry Sodium (134 - 147 mEq/L) 140 Potassium (3.4 - 5.0 mEq/L) 3.8 Chloride (100 - 108 mEq/L) 106 Carbon Dioxide (21 - 33 mEq/l) 27 Anion Gap (0 - 20) 11 BUN (7 - 18 mg/dL) 19 H Creatinine (0.6 - 1.3 mg/dL) 1.1 Glomerular Filtr Rate (70 - 80) 47.8 L Glucose (70 - 110 mg/dL) 99 Calcium (8.0 - 10.5 mg/dL) 8.2 Laboratory Tests 04/06 0540 Hematology WBC (4.5 - 11.0 x10 3/uL) 7.2 RBC (3.54 - 5.02 x10 6/uL) 2.98 L Hgb (11.0 - 15.0 g/dL) 8.3 L Hct (33.0 - 45.0 %) 26.7 L MCV (81.0 - 99.0 fL) 89.6 MCH (27.0 - 33.0 pg) 27.9 MCHC (33.0 - 37.0 g/dL) 31.1 L RDW (11.5 - 14.5 %) 16.5 H Plt Count (150 - 400 x10 3/uL) 292 MPV (7.0 - 9.0 fL) 11.4 H Neut % (Auto) (56.0 - 77.0 %) 60.8 Lymph % (Auto) (14.0 - 32.0 %) 29.1 Phelps % (Auto) (4.8 - 9.0 %) 8.6 Eos % (Auto) (0.3 - 3.7 %) 0.4 Baso % (Auto) (0.0 - 2.0 %) 0.7 Neut # (Auto) (2.0 - 7.6 x10 3/uL) 4.36 Lymph # (Auto) (1.0 - 3.8 x10 3/uL) 2.09 Phelps # (Auto) (0.1 - 0.8 x10 3/uL) 0.62 Eos # (Auto) (0.0 - 0.2 x10 3/uL) 0.03 Baso # (Auto) (0.0 - 0.2 x10 3/uL) 0.05 Abs Immat Gran (auto) (0.00 - 0.03 x10 3/uL) 0. 03 Add Manual Diff NO Immature Gran % (0.0 - 2.0 %) 0.4 Nucleated RBC % (0 - 0 %) 0.0 Nucleated RBCs # (Man) (0.0 - 0.1 x10 3/uL) 0.0 0 Radiology data: Recent Impressions: RADIOLOGY - XR SHOULDER 1 V RT 04/05 1432 Report Impression - Status: SIGNED Entered: 04/05/2022 1514 IMPRESSION: Right arm PICC tip overlies superior vena cava. Impression By: Liam Jennings M.D. Diagnosis, Assessment Plan Problem List/A P: 1. Sepsis 2. MRSA bacteremia 3. Normocytic anemia 4. Lactic acidosis 5. Acute systolic (congestive) heart failure 6. Infective endocarditis of pulmonary valve 7. CKD (chronic kidney disease) 8. DM2 (diabetes mellitus, type 2) Free Text A P: 1. Pulmonary septic emboli #2 infective endocarditis, pulmonary valve #3 MRSA bacteremia #4 bilateral atelectasis #5 small pleural effusion #5 pulmonary nodules Stable pulmonary status on room air Keep SPo2>92% Oxygen support PRN CTA chest with bilateral lico iable sized pulmonary nodules consistent with active inflammatory/infectious process, it is s eptic emboli secondary to a right side endocarditis Patient is a smoker [id number], high risk of m alignancy We will plan to repeat the C AT scan in 6 weeks to assure stability of the nodule or resolution Antibiotic vancomycin and ceftaroline per ID Outpatient pulmonary follow up in 2-3 weeks afte r d/c Looks euvolemic Pulmonary toilet DVT ppx Full COde Disposition planning from pulmonary standpoint Consultants: cardiology, critical/intens ivist, hospitalist, infectious disease Electronically Signed by Shyla Jackson MD 04/06/22 at 1223 RPT #:[id number] END OF REPORT 2022-04-06 11:48:00-00:00 [facility] ([facility]) Infectious Dis. Progress Note REPORT#:[id number] REPORT STATUS: Signed DATE:04/06/22 TIME: 1148 PATIENT: MICHAELA MATIAS UNIT #: [id number] ROOM/BED: [place] [address] : 41 AGE: 81 SEX: F ATTEND: Justyn Bueno MD ADM AUTHOR: Kisha Kohli MD, MD * ALL edits or amendments must be made on the el [employer]/computer document * Subjective Chief complaint: recurrent bacteremia HPI: This is an 81-year-old white female patient with history of type 2 diabetes, hypertension and chronic kid lizabeth disease who was admitted to an outside hospital in [place] with chest pain and elevated tro ponins. At that time the family decl ined cardiac cath and the patient was discharged and then readmitted because of positive blood cultur es for MRSA. The patient was sent home on IV antibiotics and received 2 weeks of therapy presumably vancomycin. She then re presented to [facility] ER room with sepsis and the blood cultures were again positive for the same organi sm. She was then transferred to [facility]. IGLESIA 03/24 showed a pulmonary valve vegetation. Patient reports: No: complaints. Review of Systems Unable to obtain due to: mc Objective General VS/I O: Vital Signs Date Temp Pulse Resp B/P B/P Mean Pulse Ox FiO 2 04/05-04/06 97.0-98.2 66-69 16-18 110-128/60-64 76.8-84.2 92-95 Last Documented: Result Date Time Pulse Ox 93 04/06 1111 B/P 123/64 04/06 1111 B/P Mean 83.5 04/06 1111 O2 Delivery Room air 04/06 1111 Temp 97.9 04/06 1111 Pulse 67 04/06 1111 Resp 18 04/06 1111 FiO2 21 04/05 0100 O2 Flow Rate 0 03/30 0900 Vital Signs: Date Time Temp Pulse Resp B/P B/P Pulse O2 O2 F low FiO2 Mean Ox Delivery Rate 04/06 1111 97.9 67 18 123/64 83.5 93 Room air 04/06 0535 98.2 66 16 128/62 84.2 92 Room air 04/05 1907 97.0 69 16 110/60 76.8 95 Room air 04/05 1234 Room air PATIENT WEIGHT: Weight (lb): 106 Weight (oz): 7.73 Weight (kg): 48.300 Medications: Active Meds + DC'd Last 24 Hrs Daptomycin (CUBICIN 500MG) 400 MG Q24H IV (CKD) Sodium Chloride (SODIUM CHLORIDE 0.9%) 50 ML Sodium Chloride (SODIUM CHLORIDE) 10 ML BID IV Sodium Chloride (SODIUM CHLORIDE) 10 ML ASDIR VT N IV Carvedilol (COREG) 3.125 MG C BK DIN PO Lisinopril (ZESTRIL) 2.5 MG DAILY PO Memantine (NAMENDA) 10 MG DAILY PO Donepezil HCl (ARICEPT) 10 MG BEDTIME PO Acetaminophen (TYLENOL) 650 MG Q4H PRN PRN RECTA L Hydralazine HCl (APRESOLINE) 10 MG Q6H PRN PRN I V Enoxaparin Sodium (lovENOX) 30 MG Q24H SUBQ Lactated Ringer's (LACTATED RINGERS) 1,000 ML GILLIAN MARTY IV Acetaminophen (TYLENOL) 650 MG Q4H PRN PRN PO Ondansetron HCl (ZOFRAN) 4 MG Q4H PRN PRN IV Dextrose/Water (DEXTROSE 50% W SYRINGE) 25 ML DIR PRN IV (CKD) Dextrose/Water (DEXTROSE 50% W SYRINGE) 50 ML DIR PRN IV (CKD) Glucagon (GLUCAGON) 1 MG ASDIR PRN IM Insulin Human Lispro (HUMALOG) 0 AC HS SUBQ Physical Exam General appearance: no acute distress Head/Eyes: atraumatic, clear cornea ENT: moist mucosal membranes, normal dentition Neck: full range of motion, non-tender Cardiovascular: normal heart sounds, regular rat e rhythm Respiratory: clear to auscultation, aerating wel l Abdomen: non-tender, normal bowel sounds Extremities: moves all, normal capillary refill Musculoskeletal: normal inspection, no joint swe lling Considered stroke alert: no Results Findings/Data: Laboratory Tests 04/06 0540 Chemistry Sodium (134 - 147 mEq/L) 140 Potassium (3.4 - 5.0 mEq/L) 3.8 Chloride (100 - 108 mEq/L) 106 Carbon Dioxide (21 - 33 mEq/l) 27 Anion Gap (0 - 20) 11 BUN (7 - 18 mg/dL) 19 H Creatinine (0.6 - 1.3 mg/dL) 1.1 Glomerular Filtr Rate (70 - 80) 47.8 L Glucose (70 - 110 mg/dL) 99 Calcium (8.0 - 10.5 mg/dL) 8.2 Laboratory Tests 04/06 05 Hematology WBC (4.5 - 11.0 x10 3/uL) 7.2 RBC (3.54 - 5.02 x10 6/uL) 2.98 L Hgb (11.0 - 15.0 g/dL) 8.3 L Hct (33.0 - 45.0 %) 26.7 L MCV (81.0 - 99.0 fL) 89.6 MCH (27.0 - 33.0 pg) 27.9 MCHC (33.0 - 37.0 g/dL) 31.1 L RDW (11.5 - 14.5 %) 16.5 H Plt Count (150 - 400 x10 3/uL) 292 MPV (7.0 - 9.0 fL) 11.4 H Neut % (Auto) (56.0 - 77.0 %) 60.8 Lymph % (Auto) (14.0 - 32.0 %) 29.1 Phelps % (Auto) (4.8 - 9.0 %) 8.6 Eos % (Auto) (0.3 - 3.7 %) 0.4 Baso % (Auto) (0.0 - 2.0 %) 0.7 Neut # (Auto) (2.0 - 7.6 x10 3/uL) 4.36 Lymph # (Auto) (1.0 - 3.8 x10 3/uL) 2.09 Phelps # (Auto) (0.1 - 0.8 x10 3/uL) 0.62 Eos # (Auto) (0.0 - 0.2 x10 3/uL) 0.03 Baso # (Auto) (0.0 - 0.2 x10 3/uL) 0.05 Abs Immat Gran (auto) (0.00 - 0.03 x10 3/uL) 0. 03 Add Manual Diff NO Immature Gran % (0.0 - 2.0 %) 0.4 Nucleated RBC % (0 - 0 %) 0.0 Nucleated RBCs # (Man) (0.0 - 0.1 x10 3/uL) 0.0 0 Radiology data: Recent Impressions: RADIOLOGY - XR SHOULDER 1 V RT 04/05 1432 Report Impression - Status: SIGNED Entered: 04/05/2022 0904 IMPRESSION: Right arm PICC tip overlies superior vena cava. Impression By: [email or web address] - Florencio Jennings M.D. Results: labs reviewed, dolores l signs reviewed, x-ray personally reviewed, current med profile rev'd Treatment Prophylaxis Treatment Prophylaxis CVC/PICC documentation: The data below has been imported from nursing do cumentation. Any exceptions have been noted below under Provider comments. CVC/PICC insertion date/time : PICC single lumen Basilic vein Right Inserted 1400 Provider comments on imported nursing data: [] Diagnosis, Assessment Plan Problem List/A P: 1. MRSA bacteremia 2. Sepsis 3. Infective endocarditis of pulmonary valve 4. CKD (chronic kidney disease) 5. 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 IGLESIA 03/24 showed PV vegetations Repeat blood 03/29 negative Vancomycin/Ceftaroline changed to daily Daptomyc in 04/04 R PICC 04/05 for 4 weeks Daptomycin through 04/26 will follow Consultants: cardiology, critical/intens ivist, hospitalist, infectious disease Electronically Signed by Kisha Kohli MD, MD on at 1149 RPT #:[id number] END OF REPORT 2022-04-05 14:21:00-00:00 [facility] ([facility]) Hospitalist Progress Note REPORT#:[id number] REPORT STATUS: Signed DATE:04/05/22 TIME: 1421 PATIENT: MICHAELA MATIAS UNIT #: [id number] ROOM/BED: [place] [id number] : 41 AGE: 81 SEX: F ATTEND: Justyn Bueno MD ADM AUTHOR: Balwinder Bueno MD * ALL edits or amendments must be made on the el ectronic/computer document * Subjective Chief complaint: sleepy. arousable. eating some. no major c/o. no cp. no sob. Patient reports: No: complaints. Objective General VS/I O: Vital Signs: Date Time Temp Pulse Resp B/P B/P Pulse O2 O2 F low FiO2 Mean Ox Delivery Rate 04/05 1234 Room air 04/05 1119 98.4 69 18 133/65 87.4 95 Room air 04/05 0555 97.9 65 17 137/68 91.0 94 Room air 04/05 0100 96 Room air 21 04/04 1904 97.9 69 16 133/63 86.1 96 Room air 04/04 1713 97.5 66 16 149/64 92.3 95 Room air 24 hour I O ending at 0700: 04/05 0700 04/04 1900 Intake Total Output Total Balance Number 3 Incontinent Voids PATIENT WEIGHT: Weight (lb): 106 Weight (oz): 7.73 Weight (kg): 48.300 Physical Exam General appearance: sleeping comfortably Head/Eyes: atraumatic, normocephalic ENT: normal ear left, normal ear right, normal n ose Neck: full range of motion, no JVD Cardiovascular: normal heart sounds, regular rat e rhythm Respiratory: aerating well, clear to auscultatio n, symmetric expansion, no distress Abdomen: non-tender, normal bowel sounds, soft, no distention Extremities: no clubbing, no cyanosis, no edema 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, no sensory deficit s Considered stroke alert: no Skin: intact, normal color, no rash Diagnosis, Assessment Plan Consultants: cardiology, critical/intens ivist, hospitalist, infectious disease Free Text DxA P Notes Free text DxA P notes: 81 y/o with dementia/HTN/CAD/CHF/aortic regurge/CKD -stage III/DM who presents with persistent bacteremia (presumed MRSA) causi ng sepsis Infective endocarditis Recurrent gram positive bacteremia -at [facility] she was on IV vancomycin IGLESIA showed vegetation in the pulmonary valve culture ....MRSA She will need PICC line after blood culture nega gianni 03/28- last bld cx 07/18 still positive. 03/29- repeat bld cx to be dr pedraza today. once negative, picc line and then 6 weeks of IV abx at [facility]. 03/30- awiting ID clearance for PICC placement an d for LTACH transfer. bld cx negative 24 hours so far. 03/31- bld cx negative for 48 hours. picc today? then LTACH? Abonrmal CT chest 03/28- pleural effusion, mult iple nodules, ?pneumoina. ask pulmonary to evaluate. 03/29- need repeat CT chest to f/u on nodules. 03/30- need OUPT repeat CT chest for the nodules Delirium 03/28- MRI brain negative. neuro has signed off Poor po intake 03/28- ask nutrtion to see 03/30 - d/w and pt's daughter ( wa nts daughter to make any decisions). Daughter, Rosemary, does not want a do bhoff for feeding for now. Septic shock - Resolved patient had septic shock at [place] [facility] req uiring pressors and pt was resussitated with IVF and albumin. Continue to monitor pressure CKD - follow electrolytes, UOP HTN - Per cardiology 03/30- Pt is bradycardic and BP is a bit high...w ill change lopressor to coreg and zestril. 03/31- controlled with zestril/coreg DVT prophylaxis Lovenox subcu 03/26: on physical exam today aphasia which is grewal dden , code stroke called, CT head, no bleeding, discussed with ICC and neuro. ,her symptoms improved (TIA?) discussed with grandughter (Rosemary), and the pat vito's . BC again growing MRSA, discussed with mónica Napoles on Teflaro and vanco neuro check, will keep in ICU 03/27: patient still not back to baseline, confus ed, MRI -ve for stroke, discussed with neuro, delirium? on Teflaro and v anc for Infective endocardititis. 03/28- awaiting transfer to t he floor. on IV vanc/teflaro. d/w family at bedside 03/29- awaiting transfer to t he floor. if repeat blx cx negative today, then PICC and 6 more weeks of IV abx at LTACH. d/w case jaime jarvis. 03/30- change BP meds to avoid bradycardi a. awaiting ID clearance for PICC line and then transfer to LTACH for 6 weeks o f IV abx for endocarditis...d/w family about dobhoff for feeding and they do NOT want d obhoff for now, since pt is eating a little. check labs in am. d/w bedside mónica mock. 03/31- transfered to the floor. awaiting PICC and then transfer to LTACH. 04/01-PICC line has not been placed yet. Awaiting for transfer to LTAC. 04/03-no new complains. Per family plan is to go home with HH and home IV antibiotics. PICC line 04/05-plan to d/c home with HH and iv antibiotics . d/c home once arranged. Quality: Gen Med Crit Care VTE Prophylaxis VTE prophylaxis initiated: yes Current Medications Current medication review: I attest that the foregoing medication list in t he medical record is true, accurate, and complete to the best of my knowled ge. Advanced Care Plan 65 or Older Discussed with: surrogate decis. maker Discussion included: code status at 1424 RPT #:[id number] END OF REPORT 2022-04-05 13:01:00-00:00 [facility] Rehab Progress Note REPORT#:[id number] REPORT STATUS: Signed DATE:04/05/22 TIME: 1301 PATIENT: MICHAELA MATIAS UNIT #: [id number] ROOM/BED: [place] [id number] : 41 AGE: 81 SEX: F ATTEND: Justyn Bueno MD ADM AUTHOR: Radha Schneider SUPERVISOR TILE AND MOTTLE * ALL edits or amendments must be made on the [employer]/computer document * Subjective Chief complaint: Rehab follow-up NAD denies pain and sob very flat affect states she wants to go home Denies HENDRICKS/N/V/D/CP 14 systems reviewed and neg. except that above. Objective General VS: Vital Signs: Date Time Temp Pulse Resp B/P B/P Pulse O2 O2 F low FiO2 Mean Ox Delivery Rate 04/05 1234 Room air 04/05 1119 98.4 69 18 133/65 87.4 95 Room air 04/05 0555 97.9 65 17 137/68 91.0 94 Room air 04/05 0100 96 Room air 21 04/04 1904 97.9 69 16 133/63 86.1 96 Room air 04/04 1713 97.5 66 16 149/64 92.3 95 Room air PATIENT WEIGHT: Weight (lb): 106 Weight (oz): 7.73 Weight (kg): 48.300 Medications: Active Meds + DC'd Last 24 Hrs Daptomycin (CUBICIN 500MG) 400 MG Q24H IV (CKD) Sodium Chloride (SODIUM CHLORIDE 0.9%) 50 ML Sodium Chloride (SODIUM CHLORIDE) 10 ML BID IV Sodium Chloride (SODIUM CHLORIDE) 10 ML ASDIR VT N IV Carvedilol (COREG) 3.125 MG C BK DIN PO Lisinopril (ZESTRIL) 2.5 MG DAILY PO Ceftaroline Fosamil (TEFLARO) 400 MG Q8H IV (DC) Sodium Chloride (SODIUM CHLORIDE 0.9%) 100 ML Memantine (NAMENDA) 10 MG DAILY PO Donepezil HCl (ARICEPT) 10 MG BEDTIME PO Vancomycin HCl (VANCOMYCIN HCL) 500 MG Q24H IV ( DC) Sodium Chloride (SODIUM CHLORIDE 0.9% 100 ML) 1 00 ML Acetaminophen (TYLENOL) 650 MG Q4H PRN PRN RECTA L Hydralazine HCl (APRESOLINE) 10 MG Q6H PRN PRN I V Enoxaparin Sodium (lovENOX) 30 MG Q24H SUBQ Lactated Ringer's (LACTATED RINGERS) 1,000 ML GILLIAN MARTY IV Acetaminophen (TYLENOL) 650 MG Q4H PRN PRN PO Ondansetron HCl (ZOFRAN) 4 MG Q4H PRN PRN IV Dextrose/Water (DEXTROSE 50% W SYRINGE) 25 ML DIR PRN IV (CKD) Dextrose/Water (DEXTROSE 50% W SYRINGE) 50 ML DIR PRN IV (CKD) Glucagon (GLUCAGON) 1 MG ASDIR PRN IM Insulin Human Lispro (HUMALOG) 0 AC HS SUBQ Miscellaneous Information (VANCOMYCIN PHARMACY T O DOSE) 1 EACH ASDIR IV (DC) Physical Exam General appearance: chronically ill appearing, a lert, awake, oriented (x2) Psych: flat affect, alert HEENT: anicteric, sclera clear Neck: supple, no JVD Cardiovascular: regular rate rhythm, S1/S2 Respiratory: aerating well, clear bilaterally Abdomen: bowel sounds present, non-distended, so ft Skin: intact, no rash Musculoskeletal - general: Musculoskeletal - general: decreased AROM, rod s strength 3- 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: alert, CNII-XII intact Results Findings/Data: Laboratory Tests: 04/05 1000 Chemistry Sodium (134 - 147 mEq/L) 136 Potassium (3.4 - 5.0 mEq/L) 4.0 Chloride (100 - 108 mEq/L) 104 Carbon Dioxide (21 - 33 mEq/l) 26 Anion Gap (0 - 20) 10 BUN (7 - 18 mg/dL) 17 Creatinine (0.6 - 1.3 mg/dL) 1.2 Glomerular Filtr Rate (70 - 80) 43.2 L Glucose (70 - 110 mg/dL) 121 H Calcium (8.0 - 10.5 mg/dL) 9.0 Total Creatine Kinase (34 - 145 Units/L) 30 L Hematology WBC (4.5 - 11.0 x10 3/uL) 6.9 RBC (3.54 - 5.02 x10 6/uL) 3.72 Hgb (11.0 - 15.0 g/dL) 10.4 L Hct (33.0 - 45.0 %) 32.7 L MCV (81.0 - 99.0 fL) 87.9 MCH (27.0 - 33.0 pg) 28.0 MCHC (33.0 - 37.0 g/dL) 31.8 L RDW (11.5 - 14.5 %) 16.3 H Plt Count (150 - 400 x10 3/uL) 377 MPV (7.0 - 9.0 fL) 11.1 H Neut % (Auto) (56.0 - 77.0 %) 68.5 Lymph % (Auto) (14.0 - 32.0 %) 24.8 Phelps % (Auto) (4.8 - 9.0 %) 5.2 Eos % (Auto) (0.3 - 3.7 %) 0.6 Baso % (Auto) (0.0 - 2.0 %) 0.6 Neut # (Auto) (2.0 - 7.6 x10 3/uL) 4.72 Lymph # (Auto) (1.0 - 3.8 x10 3/uL) 1.71 Phelps # (Auto) (0.1 - 0.8 x10 3/uL) 0.36 Eos # (Auto) (0.0 - 0.2 x10 3/uL) 0.04 Baso # (Auto) (0.0 - 0.2 x10 3/uL) 0.04 Abs Immat Gran (auto) (0.00 - 0.03 x10 3/uL) 0. 02 Add Manual Diff NO Immature Gran % (0.0 - 2.0 %) 0.3 Nucleated RBC % (0 - 0 %) 0.0 Nucleated RBCs # (Man) (0.0 - 0.1 x10 3/uL) 0.0 0 Diagnosis, Assessment Plan Free Text A P: Debility Generalized weakness Impaired mobility and gait Infective endocarditis-pulmonary valve Septic shock CKD HTN Anorexia Dementia Frailty Plan: Continue PT. Encouraged participation OT signed off. We will reconsult if I can get pa tient to work with PT Out of bed to chair Work on strength, bed mobility, transfers, gait Increase endurance Fall precautions Monitor p.o. intake and nutrition Strict decubitus precautions Advance therapies as tolerated Therapy session update: Patient kept her eyes closed during the session total assist for supine exercises with passive r abad of motion Dispo: Family now wants to bring patient home. Home antibiotics would have to be arranged CM arranging for DME Total time was 36 minutes > 50% with patient and performing physical examination, discussing plan of care, goals, poor p.o. intake, therapy refusals, minimal progress, medications, labs. All questio ns answered Consultants: cardiology, critical/intens ivist, hospitalist, infectious disease Rehab attestation: Face to face exam completed. Treatment plan disc ussed with patient. at 1304 RPT #:[id number] END OF REPORT 2022-04-05 12:15:00-00:00 [facility] ([facility]) Pulmonology Progress Note REPORT#:[id number] REPORT STATUS: Signed DATE:04/05/22 TIME: 5 PATIENT: MICHAELA MATIAS UNIT #: [id number] ROOM/BED: [id number] : 41 AGE: 81 SEX: F ATTEND: Justyn Bueno MD ADM AUTHOR: Shyla Jackson MD * ALL edits or amendments must be made on the el [employer]/computer document * Subjective Chief complaint: no acute events overnight on room air Review of Systems ROS Constitutional: Denies: fatigue, fever, lethargy. Respiratory: Denies: hemoptysis, pleurisy, wheezing. Musculoskeletal: Denies: extremity pain, joint swelling, thoracic pain. Heme: Denies: adenopathy, bleeding, bruising, petechia e, other. Objective General VS/I O: Last Documented: Result Date Time Pulse Ox 95 04/05 1119 B/P 133/65 04/05 1119 B/P Mean 87.4 04/05 1119 O2 Delivery Room air 04/05 1119 Temp 36.9 04/05 1119 Pulse 69 04/05 1119 Resp 18 04/05 1119 FiO2 21 04/05 0100 O2 Flow Rate 0 03/30 0900 24 hour I O ending at 0700: 04/05 0700 04/04 1900 Intake Total Output Total Balance Number 3 Incontinent Voids PATIENT WEIGHT: Weight (lb): 106 Weight (oz): 7.73 Weight (kg): 48.300 Medications: Active Meds + DC'd Last 24 Hrs Daptomycin (CUBICIN 500MG) 400 MG Q24H IV (CKD) Sodium Chloride (SODIUM CHLORIDE 0.9%) 50 ML Sodium Chloride (SODIUM CHLORIDE) 10 ML BID IV Sodium Chloride (SODIUM CHLORIDE) 10 ML ASDIR VT N IV Carvedilol (COREG) 3.125 MG C BK DIN PO Lisinopril (ZESTRIL) 2.5 MG DAILY PO Ceftaroline Fosamil (TEFLARO) 400 MG Q8H IV (DC) Sodium Chloride (SODIUM CHLORIDE 0.9%) 100 ML Memantine (NAMENDA) 10 MG DAILY PO Donepezil HCl (ARICEPT) 10 MG BEDTIME PO Vancomycin HCl (VANCOMYCIN HCL) 500 MG Q24H IV ( DC) Sodium Chloride (SODIUM CHLORIDE 0.9% 100 ML) 1 00 ML Acetaminophen (TYLENOL) 650 MG Q4H PRN PRN RECTA L Hydralazine HCl (APRESOLINE) 10 MG Q6H PRN PRN I V Enoxaparin Sodium (lovENOX) 30 MG Q24H SUBQ Lactated Ringer's (LACTATED RINGERS) 1,000 ML GILLIAN MARTY IV Acetaminophen (TYLENOL) 650 MG Q4H PRN PRN PO Ondansetron HCl (ZOFRAN) 4 MG Q4H PRN PRN IV Dextrose/Water (DEXTROSE 50% W SYRINGE) 25 ML DIR PRN IV (CKD) Dextrose/Water (DEXTROSE 50% W SYRINGE) 50 ML DIR PRN IV (CKD) Glucagon (GLUCAGON) 1 MG ASDIR PRN IM Insulin Human Lispro (HUMALOG) 0 AC HS SUBQ Miscellaneous Information (VANCOMYCIN PHARMACY T O DOSE) 1 EACH ASDIR IV (DC) Physical Exam General appearance: alert, awake, no acu te distress, pleasant, conversational, no respiratory distress Head/eyes: atraumatic, normocephalic, PERRL, PER RLA ENT: ENT: moist mucosal membranes Cardiovascular: normal heart sounds, normal S1/S 2, regular rate rhythm, no murmur, no rub, no gallop Respiratory/chest: aerating well, clear to auscultation, symmetric expansion, no distress, no tenderness Abdomen: soft, non-tender Extremities: no cyanosis, no edema, no pedal wesley ma Musculoskeletal: no muscle spasm 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: alert Considered stroke alert: no Results Findings/Data: Laboratory Tests 04/05/22 1000: [Embedded Image Not Available] Laboratory Tests 04/05 1000 Chemistry Sodium (134 - 147 mEq/L) 136 Potassium (3.4 - 5.0 mEq/L) 4.0 Chloride (100 - 108 mEq/L) 104 Carbon Dioxide (21 - 33 mEq/l) 26 Anion Gap (0 - 20) 10 BUN (7 - 18 mg/dL) 17 Creatinine (0.6 - 1.3 mg/dL) 1.2 Glomerular Filtr Rate (70 - 80) 43.2 L Glucose (70 - 110 mg/dL) 121 H Calcium (8.0 - 10.5 mg/dL) 9.0 Total Creatine Kinase (34 - 145 Units/L) 30 L Laboratory Tests 04/05 1000 Hematology WBC (4.5 - 11.0 x10 3/uL) 6.9 RBC (3.54 - 5.02 x10 6/uL) 3.72 Hgb (11.0 - 15.0 g/dL) 10.4 L Hct (33.0 - 45.0 %) 32.7 L MCV (81.0 - 99.0 fL) 87.9 MCH (27.0 - 33.0 pg) 28.0 MCHC (33.0 - 37.0 g/dL) 31.8 L RDW (11.5 - 14.5 %) 16.3 H Plt Count (150 - 400 x10 3/uL) 377 MPV (7.0 - 9.0 fL) 11.1 H Neut % (Auto) (56.0 - 77.0 %) 68.5 Lymph % (Auto) (14.0 - 32.0 %) 24.8 Phelps % (Auto) (4.8 - 9.0 %) 5.2 Eos % (Auto) (0.3 - 3.7 %) 0.6 Baso % (Auto) (0.0 - 2.0 %) 0.6 Neut # (Auto) (2.0 - 7.6 x10 3/uL) 4.72 Lymph # (Auto) (1.0 - 3.8 x10 3/uL) 1.71 Phelps # (Auto) (0.1 - 0.8 x10 3/uL) 0.36 Eos # (Auto) (0.0 - 0.2 x10 3/uL) 0.04 Baso # (Auto) (0.0 - 0.2 x10 3/uL) 0.04 Abs Immat Gran (auto) (0.00 - 0.03 x10 3/uL) 0. 02 Add Manual Diff NO Immature Gran % (0.0 - 2.0 %) 0.3 Nucleated RBC % (0 - 0 %) 0.0 Nucleated RBCs # (Man) (0.0 - 0.1 x10 3/uL) 0.0 0 Diagnosis, Assessment Plan Problem List/A P: 1. Sepsis 2. MRSA bacteremia 3. Normocytic anemia 4. Lactic acidosis 5. Acute systolic (congestive) heart failure 6. Infective endocarditis of pulmonary valve 7. CKD (chronic kidney disease) 8. DM2 (diabetes mellitus, type 2) Free Text A P: 1. Pulmonary septic emboli #2 infective endocarditis, pulmonary valve #3 MRSA bacteremia #4 bilateral atelectasis #5 small pleural effusion #5 pulmonary nodules Stable pulmonary status on room air Keep SPo2>92% Oxygen support PRN CTA chest with bilateral lico iable sized pulmonary nodules consistent with active inflammatory/infectious process, it is s eptic emboli secondary to a right side endocarditis Patient is a smoker [id number], high risk of m alignancy We will plan to repeat the C AT scan in 6 weeks to assure stability of the nodule or resolution Antibiotic vancomycin and ceftaroline per ID Outpatient pulmonary follow up in 2-3 weeks afte r d/c Looks euvolemic Pulmonary toilet DVT ppx Full COde Disposition planning from pulmonary standpoint Consultants: cardiology, critical/intens ivist, hospitalist, infectious disease Electronically Signed by Shyla Jackson MD o n 04/05/22 at 1217 RPT #:[id number] END OF REPORT 2022-04-05 12:14:00-00:00 [facility] ([facility]) Infectious Dis. Progress Note REPORT#:[id number] REPORT STATUS: Signed DATE:04/05/22 TIME: 1214 PATIENT: MICHAELA MATIAS UNIT #: [id number] ROOM/BED: [place] [address] : 41 AGE: 81 SEX: F ATTEND: Justyn Bueno MD ADM AUTHOR: Kisha Kohli MD, MD * ALL edits or amendments must be made on the [employer]/computer document * Subjective Chief complaint: recurrent bacteremia HPI: This is an 81-year-old white female patient with history of type 2 diabetes, hypertension and chronic kid lizabeth disease who was admitted to an outside hospital in [place] with chest pain and elevated tro ponins. At that time the family decl ined cardiac cath and the patient was discharged and then readmitted because of positive blood cultur es for MRSA. The patient was sent home on IV antibiotics and received 2 weeks of therapy presumably vancomycin. She then re presented to [facility] ER room with sepsis and the blood cultures were again positive for the same organi sm. She was then transferred to [facility]. IGLESIA 03/24 showed a pulmonary valve vegetation. Patient reports: No: complaints. Review of Systems Unable to obtain due to: mc Objective General VS/I O: Vital Signs Date Temp Pulse Resp B/P B/P Mean Pulse Ox FiO2 04/04-04/05 97.5-98.4 65-69 16-18 133-149/63-68 86.1-92.3 94-96 21 Last Documented: Result Date Time Pulse Ox 95 04/05 1119 B/P 133/65 04/05 1119 B/P Mean 87.4 04/05 1119 O2 Delivery Room air 04/05 1119 Temp 98.4 04/05 1119 Pulse 69 04/05 1119 Resp 18 04/05 1119 FiO2 21 04/05 0100 O2 Flow Rate 0 03/30 0900 Vital Signs: Date Time Temp Pulse Resp B/P B/P Pulse O2 O2 F low FiO2 Mean Ox Delivery Rate 04/05 111 98.4 69 18 133/65 87.4 95 Room air 04/05 0555 97.9 65 17 137/68 91.0 94 Room air 04/05 0100 96 Room air 21 04/04 1904 97.9 69 16 133/63 86.1 96 Room air 04/04 1713 97.5 66 16 149/64 92.3 95 Room air 24 hour I O ending at 0700: 04/05 0700 04/04 1900 Intake Total Output Total Balance Number 3 Incontinent Voids PATIENT WEIGHT: Weight (lb): 106 Weight (oz): 7.73 Weight (kg): 48.300 Medications: Active Meds + DC'd Last 24 Hrs Daptomycin (CUBICIN 500MG) 400 MG Q24H IV (CKD) Sodium Chloride (SODIUM CHLORIDE 0.9%) 50 ML Sodium Chloride (SODIUM CHLORIDE) 10 ML BID IV Sodium Chloride (SODIUM CHLORIDE) 10 ML ASDIR VT N IV Carvedilol (COREG) 3.125 MG C BK DIN PO Lisinopril (ZESTRIL) 2.5 MG DAILY PO Ceftaroline Fosamil (TEFLARO) 400 MG Q8H IV (DC) Sodium Chloride (SODIUM CHLORIDE 0.9%) 100 ML Memantine (NAMENDA) 10 MG DAILY PO Donepezil HCl (ARICEPT) 10 MG BEDTIME PO Vancomycin HCl (VANCOMYCIN HCL) 500 MG Q24H IV ( DC) Sodium Chloride (SODIUM CHLORIDE 0.9% 100 ML) 1 00 ML Acetaminophen (TYLENOL) 650 MG Q4H PRN PRN RECTA L Hydralazine HCl (APRESOLINE) 10 MG Q6H PRN PRN I V Enoxaparin Sodium (lovENOX) 30 MG Q24H SUBQ Lactated Ringer's (LACTATED RINGERS) 1,000 ML GILLIAN MARTY IV Acetaminophen (TYLENOL) 650 MG Q4H PRN PRN PO Ondansetron HCl (ZOFRAN) 4 MG Q4H PRN PRN IV Dextrose/Water (DEXTROSE 50% W SYRINGE) 25 ML DIR PRN IV (CKD) Dextrose/Water (DEXTROSE 50% W SYRINGE) 50 ML DIR PRN IV (CKD) Glucagon (GLUCAGON) 1 MG ASDIR PRN IM Insulin Human Lispro (HUMALOG) 0 AC HS SUBQ Miscellaneous Information (VANCOMYCIN PHARMACY T O DOSE) 1 EACH ASDIR IV (DC) Physical Exam General appearance: no acute distress Head/Eyes: atraumatic, clear cornea ENT: moist mucosal membranes, normal dentition Neck: full range of motion, non-tender Cardiovascular: normal heart sounds, regular rat e rhythm Respiratory: clear to auscultation, aerating wel l Abdomen: non-tender, normal bowel sounds Extremities: moves all, normal capillary refill Musculoskeletal: normal inspection, no joint swe lling Considered stroke alert: no Results Findings/Data: Laboratory Tests 04/05 1000 Chemistry Sodium (134 - 147 mEq/L) 136 Potassium (3.4 - 5.0 mEq/L) 4.0 Chloride (100 - 108 mEq/L) 104 Carbon Dioxide (21 - 33 mEq/l) 26 Anion Gap (0 - 20) 10 BUN (7 - 18 mg/dL) 17 Creatinine (0.6 - 1.3 mg/dL) 1.2 Glomerular Filtr Rate (70 - 80) 43.2 L Glucose (70 - 110 mg/dL) 121 H Calcium (8.0 - 10.5 mg/dL) 9.0 Total Creatine Kinase (34 - 145 Units/L) 30 L Laboratory Tests 04/05 1000 Hematology WBC (4.5 - 11.0 x10 3/uL) 6.9 RBC (3.54 - 5.02 x10 6/uL) 3.72 Hgb (11.0 - 15.0 g/dL) 10.4 L Hct (33.0 - 45.0 %) 32.7 L MCV (81.0 - 99.0 fL) 87.9 MCH (27.0 - 33.0 pg) 28.0 MCHC (33.0 - 37.0 g/dL) 31.8 L RDW (11.5 - 14.5 %) 16.3 H Plt Count (150 - 400 x10 3/uL) 377 MPV (7.0 - 9.0 fL) 11.1 H Neut % (Auto) (56.0 - 77.0 %) 68.5 Lymph % (Auto) (14.0 - 32.0 %) 24.8 Phelps % (Auto) (4.8 - 9.0 %) 5.2 Eos % (Auto) (0.3 - 3.7 %) 0.6 Baso % (Auto) (0.0 - 2.0 %) 0.6 Neut # (Auto) (2.0 - 7.6 x10 3/uL) 4.72 Lymph # (Auto) (1.0 - 3.8 x10 3/uL) 1.71 Phelps # (Auto) (0.1 - 0.8 x10 3/uL) 0.36 Eos # (Auto) (0.0 - 0.2 x10 3/uL) 0.04 Baso # (Auto) (0.0 - 0.2 x10 3/uL) 0.04 Abs Immat Gran (auto) (0.00 - 0.03 x10 3/uL) 0. 02 Add Manual Diff NO Immature Gran % (0.0 - 2.0 %) 0.3 Nucleated RBC % (0 - 0 %) 0.0 Nucleated RBCs # (Man) (0.0 - 0.1 x10 3/uL) 0.0 0 Results: labs reviewed, dolores l signs reviewed, x-ray personally reviewed, current med profile rev'd Treatment Prophylaxis Treatment Prophylaxis CVC/PICC documentation: The data below has been imported from nursing do cumentation. Any exceptions have been noted below under Provider comments. CVC/PICC insertion date/time: No CVC/PICC Provider comments on imported nursing data: [] Diagnosis, Assessment Plan Problem List/A P: 1. MRSA bacteremia 2. Sepsis 3. Infective endocarditis of pulmonary valve 4. CKD (chronic kidney disease) 5. 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 IGLESIA 03/24 showed PV vegetations Repeat blood 03/29 negative Vancomycin/Ceftaroline changed to daily Daptomyc in Proceed with PICC for 4 weeks Daptomycin through 04/26 will follow Consultants: cardiology, critical/intens ivist, hospitalist, infectious disease Electronically Signed by Kisha Kohli MD, MD on at 1215 RPT #:[id number] END OF REPORT 2022-04-05 10:37:00-00:00 [facility] ([facility]) Cardiology Progress Note REPORT#:[id number] REPORT STATUS: Signed DATE:04/05/22 TIME: 1037 PATIENT: MICHAELA MATIAS UNIT #: [id number] ROOM/BED: [place] [address] : 41 AGE: 81 SEX: F ATTEND: Justyn Bueno MD ADM AUTHOR: Sherry Gonsales MD * ALL edits or amendments must be made on the [employer]/computer document * Objective General VS/I O: 24 hour I O ending at 0700: 04/05 0700 04/04 1900 Intake Total Output Total Balance Number 3 Incontinent Voids Vital Signs: Date Time Temp Pulse Resp B/P B/P Pulse O2 O2 F low FiO2 Mean Ox Delivery Rate 04/05 0555 36.6 65 17 137/68 91.0 94 Room air 04/05 0100 96 Room air 21 04/04 1904 36.6 69 16 133/63 86.1 96 Room air 04/04 1713 36.4 66 16 149/64 92.3 95 Room air PATIENT WEIGHT: Weight (lb): 106 Weight (oz): 7.73 Weight (kg): 48.300 Medications: Active Meds + DC'd Last 24 Hrs Daptomycin (CUBICIN 500MG) 400 MG Q24H IV (CKD) Sodium Chloride (SODIUM CHLORIDE 0.9%) 50 ML Sodium Chloride (SODIUM CHLORIDE) 10 ML BID IV Sodium Chloride (SODIUM CHLORIDE) 10 ML ASDIR VT N IV Carvedilol (COREG) 3.125 MG C BK DIN PO Lisinopril (ZESTRIL) 2.5 MG DAILY PO Ceftaroline Fosamil (TEFLARO) 400 MG Q8H IV (DC) Sodium Chloride (SODIUM CHLORIDE 0.9%) 100 ML Memantine (NAMENDA) 10 MG DAILY PO Donepezil HCl (ARICEPT) 10 MG BEDTIME PO Vancomycin HCl (VANCOMYCIN HCL) 500 MG Q24H IV ( DC) Sodium Chloride (SODIUM CHLORIDE 0.9% 100 ML) 1 00 ML Acetaminophen (TYLENOL) 650 MG Q4H PRN PRN RECTA L Hydralazine HCl (APRESOLINE) 10 MG Q6H PRN PRN I V Enoxaparin Sodium (lovENOX) 30 MG Q24H SUBQ Lactated Ringer's (LACTATED RINGERS) 1,000 ML GILLIAN MARTY IV Acetaminophen (TYLENOL) 650 MG Q4H PRN PRN PO Ondansetron HCl (ZOFRAN) 4 MG Q4H PRN PRN IV Dextrose/Water (DEXTROSE 50% W SYRINGE) 25 ML DIR PRN IV (CKD) Dextrose/Water (DEXTROSE 50% W SYRINGE) 50 ML DIR PRN IV (CKD) Glucagon (GLUCAGON) 1 MG ASDIR PRN IM Insulin Human Lispro (HUMALOG) 0 AC HS SUBQ Miscellaneous Information (VANCOMYCIN PHARMACY T O DOSE) 1 EACH ASDIR IV (DC) Physical Exam General appearance: awake Neck: full range of motion, non-tender, normal thyroid, supple/no meningismus, no bruit/NL carotids, no JVD, no lymphadenopathy , no masses or swelling Cardiovascular: CV assessment: regular rate and rhythm Respiratory: clear to auscultation, no distress Abdomen: non-tender, normal bowel sounds , no distention, no guarding, no mass/ organomegaly, no pulsatile mass, no rebound Upper extremity: UE assessment: normal capillary refill, no ammy a Lower extremity: LE assessment: edema, normal capillary refill Considered stroke alert: no Diagnosis, Assessment Plan Problem List/A P: 1. MRSA bacteremia 2. Sepsis 3. Lactic acidosis 4. Infective endocarditis of pulmonary valve Consultants: cardiology, critical/intens ivist, hospitalist, infectious disease Free Text DxA P Notes Free Text DxA P Notes: 03/24 awake, stable BP , IGLESIA showed veg on pulm valve, ID was informed. IV abx. 03/25 doing well, stable, on IV abx, high BP will star t med, ok to go to tele. 03/26 awake, doing ok, had TIA yes terday, CT was ok, will get echo with bubble study, on IV abx. 03/27 resting, confusion and dementia worse, r estart meds, ok to go to tele, cont IV abx, no PFO on echo, EF is better. 03/28 doing much better today, awake, stable cardiac w ise, on IV abx, in NSR, cont same tx. 03/29 stable, doing ok, awake, no new issues, on IV ab x, going to floor. 03/30 doing ok, stable, no new events, BP is better no w on JAY, give her a dose of lasix for the edema. 03/31 doing well this am, awake, stable on abx , no edema post lasix, cont same care. 04/01 resting, no distress, cont IV abx, awaiting plac ement. 04/02 doing well, awake, eating, on IV abx, awaiting l ine placement then LTAC. 04/03 resting, refusing meds, rehab eval, cont IV abx. 04/04 pt is doing ok/same, family is thinking about [facility], IV abx at home. 04/05 pt is doing ok, awake, on iv abx, awaiting CM fo r home health care for abx infusion. Electronically Signed by Sherry Gonsales MD on 0 04/05/[address] [place] [address] #:[id number] END OF REPORT 2022-04-04 18:29:00-00:00 [facility] ([facility]) Hospitalist Progress Note REPORT#:[id number] REPORT STATUS: Signed DATE:04/04/22 TIME: 1828 PATIENT: MICHAELA MATIAS UNIT #: [id number] ROOM/BED: 5503-1 : 41 AGE: 81 SEX: F ATTEND: Justyn Bueno MD ADM AUTHOR: Balwinder Bueno MD * ALL edits or amendments must be made on the [employer]/computer document * Subjective Chief complaint: sleepy. arousable. eating some. no major c/o. no cp. no sob. Unable to obtain: altered mental status Objective General VS/I O: Vital Signs: Date Time Temp Pulse Resp B/P B/P Pulse O2 O2 F low FiO2 Mean Ox Delivery Rate 04/04 1713 97.5 66 16 149/64 92.3 95 Room air 04/04 1027 97.5 64 16 168/52 91.0 96 Room air 04/04 0715 97.7 63 17 144/53 83.4 96 Room air 04/04 0542 97.5 64 14 146/66 93.0 95 Room air 04/03 1901 97.5 65 16 149/68 95.3 96 Room air 24 hour I O ending at 0700: 04/04 0700 04/03 1900 Intake Total 200.00 Output Total Balance 200.00 Intake, IV 200.00 Number 1 Bowel Movements PATIENT WEIGHT: Weight (lb): 106 Weight (oz): 7.73 Weight (kg): 48.300 Physical Exam General appearance: sleeping comfortably Head/Eyes: atraumatic, normocephalic ENT: normal ear left, normal ear right, normal n ose Neck: full range of motion, no JVD Cardiovascular: normal heart sounds, regular rat e rhythm Respiratory: aerating well, clear to auscultatio n, symmetric expansion, no distress Abdomen: non-tender, normal bowel sounds, soft, no distention Extremities: no clubbing, no cyanosis, no edema 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, no sensory deficit s Considered stroke alert: no Skin: intact, normal color, no rash Results Findings/Data: Laboratory Tests 04/04 0500 Chemistry Sodium (134 - 147 mEq/L) 139 Potassium (3.4 - 5.0 mEq/L) 3.8 Chloride (100 - 108 mEq/L) 106 Carbon Dioxide (21 - 33 mEq/l) 25 Anion Gap (0 - 20) 12 BUN (7 - 18 mg/dL) 14 Creatinine (0.6 - 1.3 mg/dL) 1.0 Glomerular Filtr Rate (70 - 80) 53.3 L Glucose (70 - 110 mg/dL) 83 Calcium (8.0 - 10.5 mg/dL) 8.4 Laboratory Tests 04/04 0040 Hematology WBC (4.5 - 11.0 x10 3/uL) 7.2 RBC (3.54 - 5.02 x10 6/uL) 3.39 L Hgb (11.0 - 15.0 g/dL) 9.5 L Hct (33.0 - 45.0 %) 30.5 L MCV (81.0 - 99.0 fL) 90.0 MCH (27.0 - 33.0 pg) 28.0 MCHC (33.0 - 37.0 g/dL) 31.1 L RDW (11.5 - 14.5 %) 16.6 H Plt Count (150 - 400 x10 3/uL) 309 MPV (7.0 - 9.0 fL) 10.3 H Neut % (Auto) (56.0 - 77.0 %) 52.1 L Lymph % (Auto) (14.0 - 32.0 %) 36.3 H Phelps % (Auto) (4.8 - 9.0 %) 9.0 Eos % (Auto) (0.3 - 3.7 %) 1.3 Baso % (Auto) (0.0 - 2.0 %) 1.0 Neut # (Auto) (2.0 - 7.6 x10 3/uL) 3.76 Lymph # (Auto) (1.0 - 3.8 x10 3/uL) 2.61 Phelps # (Auto) (0.1 - 0.8 x10 3/uL) 0.65 Eos # (Auto) (0.0 - 0.2 x10 3/uL) 0.09 Baso # (Auto) (0.0 - 0.2 x10 3/uL) 0.07 Abs Immat Gran (auto) (0.00 - 0.03 x10 3/uL) 0. 02 Add Manual Diff NO Immature Gran % (0.0 - 2.0 %) 0.3 Nucleated RBC % (0 - 0 %) 0.0 Nucleated RBCs # (Man) (0.0 - 0.1 x10 3/uL) 0.0 0 Radiology data: Recent Impressions: ULTRASOUND - DUP VEIN UNI/LTD 04/04 912 Report Impression - Status: SIGNED Entered: 04/04/2022 0968 IMPRESSION: No DVT is seen in the right upper extremity. Impression By: Manuel Lechuga M.D. Diagnosis, Assessment Plan Consultants: cardiology, critical/intens ivist, hospitalist, infectious disease Free Text DxA P Notes Free text DxA P notes: 81 y/o with dementia/HTN/CAD/CHF/aortic regurge/CKD -stage III/DM who presents with persistent bacteremia (presumed MRSA) causi ng sepsis Infective endocarditis Recurrent gram positive bacteremia -at [place] son she was on IV vancomycin IGLESIA showed vegetation in the pulmonary valve culture ....MRSA She will need PICC line after blood culture nega tive 03/28- last bld cx 07/18 still positive. 03/29- repeat bld cx to be dr pedraza today. once negative, picc line and then 6 weeks of IV abx at [facility]. 03/30- awiting ID clearance for PICC placement an d for LTACH transfer. bld cx negative 24 hours so far. 03/31- bld cx negative for 48 hours. picc today? then LTACH? Abonrmal CT chest 03/28- pleural effusion, mult iple nodules, ?pneumoina. ask pulmonary to evaluate. 03/29- need repeat CT chest to f/u on nodules. 03/30- need OUPT repeat CT chest for the nodules Delirium 03/28- MRI brain negative. neuro has signed off Poor po intake 03/28- ask nutrtion to see 03/30 - d/w and pt's daughter ( wa nts daughter to make any decisions). Daughter, Rosemary, does not want a do bhoff for feeding for now. Septic shock - Resolved patient had septic shock at [place] [facility] req uiring pressors and pt was resussitated with IVF and albumin. Continue to monitor pressure CKD - follow electrolytes, UOP HTN - Per cardiology 03/30- Pt is bradycardic and BP is a bit high...w ill change lopressor to coreg and zestril. 03/31- controlled with zestril/coreg DVT prophylaxis Lovenox subcu 03/26: on physical exam today aphasia which is grewal dden , code stroke called, CT head, no bleeding, discussed with ICC and neuro. ,her symptoms improved (TIA?) discussed with grandughter (Rosemary), and the pat ient's . BC again growing MRSA, discussed with mónica Napoles ow on Teflaro and vanco neuro check, will keep in ICU 03/27: patient still not back to baseline, confus ed, MRI -ve for stroke, discussed with neuro, delirium? on Teflaro and v anc for Infective endocardititis. 03/28- awaiting transfer to [facility] floor. on IV vanc/teflaro. d/w family at bedside 03/29- awaiting transfer to [facility] floor. if repeat blx cx negative today, then PICC [facility]w case jaime jarvis. 03/30- change BP meds to avoid bradycardi a. awaiting ID clearance for PICC line and then transfer to LTACH for 6 weeks o f IV abx for endocarditis...d/w family about dobhoff for feeding and they do NOT want d obhoff for now, since pt is eating a little. check labs in am. d/w bedside mónica mock. 03/31- transfered to the floor. awaiting PICC and then transfer to LTACH. 04/01-PICC line has not been placed yet. Awaiting for transfer to LT. 04/03-no new complains. Per family plan is to go home with HH and home IV antibiotics. PICC line Quality: Gen Med Crit Care VTE Prophylaxis VTE prophylaxis initiated: yes Current Medications Current medication review: I attest that the foregoing medication list in [facility] medical record is true, accurate, and complete to the best of my knowled ge. Advanced Care Plan 65 or Older Discussed with: surrogate decis. maker Discussion included: code status at 1839 RPT #:[id number] END OF REPORT 2022-04-04 18:13:00-00:00 [facility] ([facility]) Cardiology Progress Note REPORT#:[id number] REPORT STATUS: Signed DATE:04/04/22 TIME: 1812 PATIENT: MICHAELA MATIAS UNIT #: [id number] ROOM/BED: [place] [address] : 41 AGE: 81 SEX: F ATTEND: Rodolfo Bueno MD ADM AUTHOR: Sherry Gonsales MD * ALL edits or amendments must be made on the [employer]/computer document * Objective General VS/I O: 24 hour I O ending at 0700: 04/04 0700 04/03 1900 Intake Total 200.00 Output Total Balance 200.00 Intake, IV 200.00 Number 1 Bowel Movements Vital Signs: Date Time Temp Pulse Resp B/P B/P Pulse O2 O2 F low FiO2 Mean Ox Delivery Rate 04/04 1713 36.4 66 16 149/64 92.3 95 Room air 04/04 1027 36.4 64 16 168/52 91.0 96 Room air 04/04 0715 36.5 63 17 144/53 83.4 96 Room air 04/04 0542 36.4 64 14 146/66 93.0 95 Room air 04/03 1901 36.4 65 16 149/68 95.3 96 Room air 04/03 1819 Room air PATIENT WEIGHT: Weight (lb): 106 Weight (oz): 7.73 Weight (kg): 48.300 Medications: Active Meds + DC'd Last 24 Hrs Daptomycin (CUBICIN 500MG) 400 MG Q24H IV (CKD) Sodium Chloride (SODIUM CHLORIDE 0.9%) 50 ML Sodium Chloride (SODIUM CHLORIDE) 10 ML BID IV Sodium Chloride (SODIUM CHLORIDE) 10 ML ASDIR VT N IV Carvedilol (COREG) 3.125 MG C BK DIN PO Lisinopril (ZESTRIL) 2.5 MG DAILY PO Ceftaroline Fosamil (TEFLARO) 400 MG Q8H IV (DC) Sodium Chloride (SODIUM CHLORIDE 0.9%) 100 ML Memantine (NAMENDA) 10 MG DAILY PO Donepezil HCl (ARICEPT) 10 MG BEDTIME PO Vancomycin HCl (VANCOMYCIN HCL) 500 MG Q24H IV ( DC) Sodium Chloride (SODIUM CHLORIDE 0.9% 100 ML) 1 00 ML Acetaminophen (TYLENOL) 650 MG Q4H PRN PRN RECTA L Hydralazine HCl (APRESOLINE) 10 MG Q6H PRN PRN I V Enoxaparin Sodium (lovENOX) 30 MG Q24H SUBQ Lactated Ringer's (LACTATED RINGERS) 1,000 ML GILLIAN MARTY IV Acetaminophen (TYLENOL) 650 MG Q4H PRN PRN PO Ondansetron HCl (ZOFRAN) 4 MG Q4H PRN PRN IV Dextrose/Water (DEXTROSE 50% W SYRINGE) 25 ML DIR PRN IV (CKD) Dextrose/Water (DEXTROSE 50% W SYRINGE) 50 ML DIR PRN IV (CKD) Glucagon (GLUCAGON) 1 MG ASDIR PRN IM Insulin Human Lispro (HUMALOG) 0 AC HS SUBQ Miscellaneous Information (VANCOMYCIN PHARMACY T O DOSE) 1 EACH ASDIR IV (DC) Physical Exam General appearance: awake Neck: full range of motion, non-tender, normal thyroid, supple/no meningismus, no bruit/NL carotids, no JVD, no lymphadenopathy , no masses or swelling Cardiovascular: CV assessment: regular rate and rhythm Respiratory: clear to auscultation, no distress Abdomen: non-tender, normal bowel sounds , no distention, no guarding, no mass/ organomegaly, no pulsatile mass, no rebound Upper extremity: UE assessment: normal capillary refill, no ammy a Lower extremity: LE assessment: edema, normal capillary refill Considered stroke alert: no Results Findings/Data: Laboratory Tests 04/04 0500 Chemistry Sodium (134 - 147 mEq/L) 139 Potassium (3.4 - 5.0 mEq/L) 3.8 Chloride (100 - 108 mEq/L) 106 Carbon Dioxide (21 - 33 mEq/l) 25 Anion Gap (0 - 20) 12 BUN (7 - 18 mg/dL) 14 Creatinine (0.6 - 1.3 mg/dL) 1.0 Glomerular Filtr Rate (70 - 80) 53.3 L Glucose (70 - 110 mg/dL) 83 Calcium (8.0 - 10.5 mg/dL) 8.4 Laboratory Tests 04/04 0040 Hematology WBC (4.5 - 11.0 x10 3/uL) 7.2 RBC (3.54 - 5.02 x10 6/uL) 3.39 L Hgb (11.0 - 15.0 g/dL) 9.5 L Hct (33.0 - 45.0 %) 30.5 L MCV (81.0 - 99.0 fL) 90.0 MCH (27.0 - 33.0 pg) 28.0 MCHC (33.0 - 37.0 g/dL) 31.1 L RDW (11.5 - 14.5 %) 16.6 H Plt Count (150 - 400 x10 3/uL) 309 MPV (7.0 - 9.0 fL) 10.3 H Neut % (Auto) (56.0 - 77.0 %) 52.1 L Lymph % (Auto) (14.0 - 32.0 %) 36.3 H Phelps % (Auto) (4.8 - 9.0 %) 9.0 Eos % (Auto) (0.3 - 3.7 %) 1.3 Baso % (Auto) (0.0 - 2.0 %) 1.0 Neut # (Auto) (2.0 - 7.6 x10 3/uL) 3.76 Lymph # (Auto) (1.0 - 3.8 x10 3/uL) 2.61 Phelps # (Auto) (0.1 - 0.8 x10 3/uL) 0.65 Eos # (Auto) (0.0 - 0.2 x10 3/uL) 0.09 Baso # (Auto) (0.0 - 0.2 x10 3/uL) 0.07 Abs Immat Gran (auto) (0.00 - 0.03 x10 3/uL) 0. 02 Add Manual Diff NO Immature Gran % (0.0 - 2.0 %) 0.3 Nucleated RBC % (0 - 0 %) 0.0 Nucleated RBCs # (Man) (0.0 - 0.1 x10 3/uL) 0.0 0 Radiology data: Recent Impressions: ULTRASOUND - DUP VEIN UNI/LTD 04/04 912 Report Impression - Status: SIGNED Entered: 04/04/2022 0945 IMPRESSION: No DVT is seen in the right upper extremity. Impression By: Manuel Lechuga M.D. Diagnosis, Assessment Plan Problem List/A P: 1. MRSA bacteremia 2. Sepsis 3. Lactic acidosis 4. Infective endocarditis of pulmonary valve Consultants: cardiology, critical/intens ivist, hospitalist, infectious disease Free Text DxA P Notes Free Text DxA P Notes: 03/24 awake, stable BP , IGLESIA showed veg on pulm valve, ID was informed. IV abx. 03/25 doing well, stable, on IV abx, high BP will star t med, ok to go to tele. 03/26 awake, doing ok, had TIA yes terday, CT was ok, will get echo with bubble study, on IV abx. 03/27 resting, confusion and dementia worse, r estart meds, ok to go to tele, cont IV abx, no PFO on echo, EF is better. 03/28 doing much better today, awake, stable cardiac w ise, on IV abx, in NSR, cont same tx. 03/29 stable, doing ok, awake, no new issues, on IV ab x, going to floor. 03/30 doing ok, stable, no new events, BP is better no w on JAY, give her a dose of lasix for the edema. 03/31 doing well this am, awake, stable on abx , no edema post lasix, cont same care. 04/01 resting, no distress, cont IV abx, awaiting plac ement. 04/02 doing well, awake, eating, on IV abx, awaiting l ine placement then LTAC. 04/03 resting, refusing meds, rehab eval, cont IV abx. 04/04 pt is doing ok/same, family is thinking about [facility], IV abx at home. Electronically Signed by Sherry Gonsales MD on 0 04/04/22 at 1815 RPT #:[id number] END OF REPORT 2022-04-04 14:33:00-00:00 [facility]L [facility]) Pulmonology Progress Note REPORT#:[id number] REPORT STATUS: Signed DATE:04/04/22 TIME: 1433 PATIENT: MICHAELA MATIAS UNIT #: [id number] ROOM/BED: 5503-1 : 41 AGE: 81 SEX: F ATTEND: Justyn Bueno MD ADM AUTHOR: Shyla Jackson MD * ALL edits or amendments must be made on the [employer]/computer document * Subjective Chief complaint: no acute events overnight on room air granddaughter at the bedside Review of Systems ROS Constitutional: Denies: fatigue, fever, lethargy. Respiratory: Denies: hemoptysis, pleurisy, wheezing. Musculoskeletal: Denies: extremity pain, joint swelling, thoracic pain. Heme: Denies: adenopathy, bleeding, bruising, petechia e, other. Objective General VS/I O: Last Documented: Result Date Time Pulse Ox 96 04/04 1027 B/P 168/52 04/04 1027 B/P Mean 91.0 04/04 1027 O2 Delivery Room air 04/04 1027 Temp 36.4 04/04 1027 Pulse 64 04/04 1027 Resp 16 04/04 1027 O2 Flow Rate 0 03/30 09 24 hour I O ending at 0700: 04/04 0700 04/03 1900 Intake Total 200.00 Output Total Balance 200.00 Intake, IV 200.00 Number 1 Bowel Movements PATIENT WEIGHT: Weight (lb): 106 Weight (oz): 7.73 Weight (kg): 48.300 Medications: Active Meds + DC'd Last 24 Hrs Daptomycin (CUBICIN 500MG) 400 MG Q24H IV (CKD) Sodium Chloride (SODIUM CHLORIDE 0.9%) 50 ML Sodium Chloride (SODIUM CHLORIDE) 10 ML BID IV Sodium Chloride (SODIUM CHLORIDE) 10 ML ASDIR VT N IV Carvedilol (COREG) 3.125 MG C BK DIN PO Lisinopril (ZESTRIL) 2.5 MG DAILY PO Ceftaroline Fosamil (TEFLARO) 400 MG Q8H IV (DC) Sodium Chloride (SODIUM CHLORIDE 0.9%) 100 ML Memantine (NAMENDA) 10 MG DAILY PO Donepezil HCl (ARICEPT) 10 MG BEDTIME PO Vancomycin HCl (VANCOMYCIN HCL) 500 MG Q24H IV ( DC) Sodium Chloride (SODIUM CHLORIDE 0.9% 100 ML) 1 00 ML Acetaminophen (TYLENOL) 650 MG Q4H PRN PRN RECTA L Hydralazine HCl (APRESOLINE) 10 MG Q6H PRN PRN I V Enoxaparin Sodium (lovENOX) 30 MG Q24H SUBQ Lactated Ringer's (LACTATED RINGERS) 1,000 ML GILLIAN MARTY IV Acetaminophen (TYLENOL) 650 MG Q4H PRN PRN PO Ondansetron HCl (ZOFRAN) 4 MG Q4H PRN PRN IV Dextrose/Water (DEXTROSE 50% W SYRINGE) 25 ML DIR PRN IV (CKD) Dextrose/Water (DEXTROSE 50% W SYRINGE) 50 ML DIR PRN IV (CKD) Glucagon (GLUCAGON) 1 MG ASDIR PRN IM Insulin Human Lispro (HUMALOG) 0 AC HS SUBQ Miscellaneous Information (VANCOMYCIN PHARMACY T O DOSE) 1 EACH ASDIR IV (DC) Physical Exam General appearance: alert, awake, no acute distr ess, no respiratory distress Head/eyes: atraumatic, normocephalic, PERRL, PER RLA ENT: ENT: moist mucosal membranes Cardiovascular: normal heart sounds, normal S1/S 2, regular rate rhythm, no murmur, no rub, no gallop Respiratory/chest: aerating well, clear to auscultation, symmetric expansion, no distress, no tenderness Abdomen: soft, non-tender Extremities: no cyanosis, no edema, no pedal wesley ma Musculoskeletal: no muscle spasm 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: alert, oriented X 3 Considered stroke alert: no Results Findings/Data: Laboratory Tests 04/04/22499: [Embedded Image Not Available] 04/04/2239: [Embedded Image Not Available] Laboratory Tests 04/04 500 Chemistry Sodium (134 - 147 mEq/L) 139 Potassium (3.4 - 5.0 mEq/L) 3.8 Chloride (100 - 108 mEq/L) 106 Carbon Dioxide (21 - 33 mEq/l) 25 Anion Gap (0 - 20) 12 BUN (7 - 18 mg/dL) 14 Creatinine (0.6 - 1.3 mg/dL) 1.0 Glomerular Filtr Rate (70 - 80) 53.3 L Glucose (70 - 110 mg/dL) 83 Calcium (8.0 - 10.5 mg/dL) 8.4 Laboratory Tests 04/04 40 Hematology WBC (4.5 - 11.0 x10 3/uL) 7.2 RBC (3.54 - 5.02 x10 6/uL) 3.39 L Hgb (11.0 - 15.0 g/dL) 9.5 L Hct (33.0 - 45.0 %) 30.5 L MCV (81.0 - 99.0 fL) 90.0 MCH (27.0 - 33.0 pg) 28.0 MCHC (33.0 - 37.0 g/dL) 31.1 L RDW (11.5 - 14.5 %) 16.6 H Plt Count (150 - 400 x10 3/uL) 309 MPV (7.0 - 9.0 fL) 10.3 H Neut % (Auto) (56.0 - 77.0 %) 52.1 L Lymph % (Auto) (14.0 - 32.0 %) 36.3 H Phelps % (Auto) (4.8 - 9.0 %) 9.0 Eos % (Auto) (0.3 - 3.7 %) 1.3 Baso % (Auto) (0.0 - 2.0 %) 1.0 Neut # (Auto) (2.0 - 7.6 x10 3/uL) 3.76 Lymph # (Auto) (1.0 - 3.8 x10 3/uL) 2.61 Phelps # (Auto) (0.1 - 0.8 x10 3/uL) 0.65 Eos # (Auto) (0.0 - 0.2 x10 3/uL) 0.09 Baso # (Auto) (0.0 - 0.2 x10 3/uL) 0.07 Abs Immat Gran (auto) (0.00 - 0.03 x10 3/uL) 0. 02 Add Manual Diff NO Immature Gran % (0.0 - 2.0 %) 0.3 Nucleated RBC % (0 - 0 %) 0.0 Nucleated RBCs # (Man) (0.0 - 0.1 x10 3/uL) 0.0 0 Radiology data: Recent Impressions: ULTRASOUND - DUP VEIN UNI/LTD 04/04 912 Report Impression - Status: SIGNED Entered: 04/04/2022 0942 IMPRESSION: No DVT is seen in the right upper extremity. Impression By: Manuel Lechuga M.D. Diagnosis, Assessment Plan Problem List/A P: 1. Sepsis 2. MRSA bacteremia 3. Normocytic anemia 4. Lactic acidosis 5. Acute systolic (congestive) heart failure 6. Infective endocarditis of pulmonary valve 7. CKD (chronic kidney disease) 8. DM2 (diabetes mellitus, type 2) Free Text A P: 1. Pulmonary septic emboli #2 infective endocarditis, pulmonary valve #3 MRSA bacteremia #4 bilateral atelectasis #5 small pleural effusion #5 pulmonary nodules Stable pulmonary status on room air Keep SPo2>92% Get PT/OT Add IS Oxygen support PRN CTA chest with bilateral lico iable sized pulmonary nodules consistent with active inflammatory/infectious process, it is s eptic emboli secondary to a right side endocarditis Patient is a smoker [id number], high risk of m alignancy We will plan to repeat the C AT scan in 6 weeks to assure stability of the nodule or resolution Antibiotic vancomycin and ceftaroline per ID Looks euvolemic Pulmonary toilet DVT ppx Full COde Family updated at the bedside Consultants: cardiology, critical/intens ivist, hospitalist, infectious disease Electronically Signed by Shyla Jackson MD o n 04/04/22 at 1434 RPT #:[id number] END OF REPORT 2022-04-04 11:07:00-00:00 [facility] ([facility] Infectious Dis. Progress Note REPORT#:[id number] REPORT STATUS: Signed DATE:04/04/22 TIME: 1107 PATIENT: MICHAELA MATIAS UNIT #: [id number] ROOM/BED: [place] [id number] : 41 AGE: 81 SEX: F ATTEND: Rodolfo Bueno MD ADM AUTHOR: Kisha Kohli MD, MD * ALL edits or amendments must be made on the [employer]/computer document * See Addendum Subjective Chief complaint: recurrent bacteremia HPI: This is an 81-year-old white female patient with history of type 2 diabetes, hypertension and chronic kid lizabeth disease who was admitted to an outside hospital in [place] with chest pain and elevated tro ponins. At that time the family decl ined cardiac cath and the patient was discharged and then readmitted because of positive blood cultur es for MRSA. The patient was sent home on IV antibiotics and received 2 weeks of therapy presumably vancomycin. She then re presented to [facility] ER room with sepsis and the blood cultures were again positive for the same organi sm. She was then transferred to [facility]. IGLESIA 03/24 showed a pulmonary valve vegetation. Patient reports: No: complaints. Review of Systems Unable to obtain due to: mc Objective General VS/I O: Vital Signs Date Temp Pulse Resp B/P B/P Mean Pulse Ox FiO2 04/03-04/04 97.5-97.7 63-65 14-17 107-168/52-68 77.6-95.3 95-97 Last Documented: Result Date Time Pulse Ox 96 04/04 1027 B/P 168/52 04/04 1027 B/P Mean 91.0 04/04 1027 O2 Delivery Room air 04/04 1027 Temp 97.5 04/04 1027 Pulse 64 04/04 1027 Resp 16 04/04 1027 O2 Flow Rate 0 03/30 0900 Vital Signs: Date Time Temp Pulse Resp B/P B/P Pulse O2 O2 F low FiO2 Mean Ox Delivery Rate 04/04 1027 97.5 64 16 168/52 91.0 96 Room air 04/04 0715 97.7 63 17 144/53 83.4 96 Room air 04/04 0542 97.5 64 14 146/66 93.0 95 Room air 04/03 1901 97.5 65 16 149/68 95.3 96 Room air 04/03 1819 Room air 04/03 1536 97.7 64 14 107/63 77.6 97 24 hour I O ending at 0700: 04/04 0700 04/03 1900 Intake Total 200.00 Output Total Balance 200.00 Intake, IV 200.00 Number 1 Bowel Movements PATIENT WEIGHT: Weight (lb): 106 Weight (oz): 7.73 Weight (kg): 48.300 Medications: Active Meds + DC'd Last 24 Hrs Sodium Polystyrene Sulfonate (KAYEXELATE) 30 GM ONCE ONE PO (DC) Sodium Chloride (SODIUM CHLORIDE) 10 ML BID IV Sodium Chloride (SODIUM CHLORIDE) 10 ML ASDIR VT N IV Carvedilol (COREG) 3.125 MG C BK DIN PO Lisinopril (ZESTRIL) 2.5 MG DAILY PO Ceftaroline Fosamil (TEFLARO) 400 MG Q8H IV Sodium Chloride (SODIUM CHLORIDE 0.9%) 100 ML Memantine (NAMENDA) 10 MG DAILY PO Donepezil HCl (ARICEPT) 10 MG BEDTIME PO Vancomycin HCl (VANCOMYCIN HCL) 500 MG Q24H IV Sodium Chloride (SODIUM CHLORIDE 0.9% 100 ML) 1 00 ML Acetaminophen (TYLENOL) 650 MG Q4H PRN PRN RECTA L Hydralazine HCl (APRESOLINE) 10 MG Q6H PRN PRN I V Enoxaparin Sodium (lovENOX) 30 MG Q24H SUBQ Lactated Ringer's (LACTATED RINGERS) 1,000 ML GILLIAN MARTY IV Acetaminophen (TYLENOL) 650 MG Q4H PRN PRN PO Ondansetron HCl (ZOFRAN) 4 MG Q4H PRN PRN IV Dextrose/Water (DEXTROSE 50% W SYRINGE) 25 ML DIR PRN IV (CKD) Dextrose/Water (DEXTROSE 50% W SYRINGE) 50 ML DIR PRN IV (CKD) Glucagon (GLUCAGON) 1 MG ASDIR PRN IM Insulin Human Lispro (HUMALOG) 0 AC HS SUBQ Miscellaneous Information (VANCOMYCIN PHARMACY T O DOSE) 1 EACH ASDIR IV (CKD) Physical Exam General appearance: no acute distress Head/Eyes: atraumatic, clear cornea ENT: moist mucosal membranes, normal dentition Neck: full range of motion, non-tender Cardiovascular: normal heart sounds, regular rat e rhythm Respiratory: clear to auscultation, aerating wel l Abdomen: non-tender, normal bowel sounds Extremities: moves all, normal capillary refill Musculoskeletal: normal inspection, no joint swe lling Considered stroke alert: no Results Findings/Data: Laboratory Tests 04/04 0500 Chemistry Sodium (134 - 147 mEq/L) 139 Potassium (3.4 - 5.0 mEq/L) 3.8 Chloride (100 - 108 mEq/L) 106 Carbon Dioxide (21 - 33 mEq/l) 25 Anion Gap (0 - 20) 12 BUN (7 - 18 mg/dL) 14 Creatinine (0.6 - 1.3 mg/dL) 1.0 Glomerular Filtr Rate (70 - 80) 53.3 L Glucose (70 - 110 mg/dL) 83 Calcium (8.0 - 10.5 mg/dL) 8.4 Laboratory Tests 04/04 0040 Hematology WBC (4.5 - 11.0 x10 3/uL) 7.2 RBC (3.54 - 5.02 x10 6/uL) 3.39 L Hgb (11.0 - 15.0 g/dL) 9.5 L Hct (33.0 - 45.0 %) 30.5 L MCV (81.0 - 99.0 fL) 90.0 MCH (27.0 - 33.0 pg) 28.0 MCHC (33.0 - 37.0 g/dL) 31.1 L RDW (11.5 - 14.5 %) 16.6 H Plt Count (150 - 400 x10 3/uL) 309 MPV (7.0 - 9.0 fL) 10.3 H Neut % (Auto) (56.0 - 77.0 %) 52.1 L Lymph % (Auto) (14.0 - 32.0 %) 36.3 H Phelps % (Auto) (4.8 - 9.0 %) 9.0 Eos % (Auto) (0.3 - 3.7 %) 1.3 Baso % (Auto) (0.0 - 2.0 %) 1.0 Neut # (Auto) (2.0 - 7.6 x10 3/uL) 3.76 Lymph # (Auto) (1.0 - 3.8 x10 3/uL) 2.61 Phelps # (Auto) (0.1 - 0.8 x10 3/uL) 0.65 Eos # (Auto) (0.0 - 0.2 x10 3/uL) 0.09 Baso # (Auto) (0.0 - 0.2 x10 3/uL) 0.07 Abs Immat Gran (auto) (0.00 - 0.03 x10 3/uL) 0. 02 Add Manual Diff NO Immature Gran % (0.0 - 2.0 %) 0.3 Nucleated RBC % (0 - 0 %) 0.0 Nucleated RBCs # (Man) (0.0 - 0.1 x10 3/uL) 0.0 0 Radiology data: Recent Impressions: ULTRASOUND - DUP VEIN UNI/LTD 04/04 912 Report Impression - Status: SIGNED Entered: 04/04/2022 0942 IMPRESSION: No DVT is seen in the right upper extremity. Impression By: Manuel Lechuga M.D. Results: labs reviewed, dolores l signs reviewed, x-ray personally reviewed, current med profile rev'd Treatment Prophylaxis Treatment Prophylaxis CVC/PICC documentation: The data below has been imported from nursing do cumentation. Any exceptions have been noted below under Provider comments. CVC/PICC insertion date/time: No CVC/PICC Provider comments on imported nursing data: [] Diagnosis, Assessment Plan Problem List/A P: 1. MRSA bacteremia 2. Sepsis 3. Infective endocarditis of pulmonary valve 4. CKD (chronic kidney disease) 5. 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 IGLESIA 03/24 showed PV vegetations Repeat blood 03/29 negative @72h Continue Vancomycin/Ceftaroline Proceed with PICC for 4 weeks Vancomycin/Ceftaro line through 04/26 will follow Consultants: cardiology, critical/intens ivist, hospitalist, infectious disease Electronically Signed by Kisha Kohli MD, MD on at 1107 Addendum 1: 04/04/22 1338 by Kisha Kohli MD, MD Family decided to take her home change to Daptomycin to complee course Electronically Signed by Kisha Kohli MD, MD on at 1339 RPT #:[id number] END OF REPORT 2022-04-04 05:16:00-00:00 [facility] ([facility]) Rehab Progress Note REPORT#:[id number] REPORT STATUS: Signed DATE:04/04/22 TIME: 05 PATIENT: MICHAELA MATIAS UNIT #: [id number] ROOM/BED: [place] [id number] : 41 AGE: 81 SEX: F ATTEND: Justyn Bueno MD ADM AUTHOR: Mihir Schneider * ALL edits or amendments must be made on the [employer]/computer document * Subjective Chief complaint: Rehab follow-up NAD Eating with encouragement He was eyes closed today Flat affect Denies HENDRICKS/N/V/D/CP 14 systems reviewed and neg. except that above. Objective General VS: Vital Signs: Date Time Temp Pulse Resp B/P B/P Pulse O2 O2 F low FiO2 Mean Ox Delivery Rate 04/03 1901 97.5 65 16 149/68 95.3 96 Room air 04/03 1819 Room air 04/03 1536 97.7 64 14 107/63 77.6 97 04/03 1052 97.9 63 14 114/64 80.4 95 04/03 0636 97.9 64 14 135/64 87.5 94 PATIENT WEIGHT: Weight (lb): 106 Weight (oz): 7.73 Weight (kg): 48.300 Medications: Active Meds + DC'd Last 24 Hrs Sodium Polystyrene Sulfonate (KAYEXELATE) 30 GM ONCE ONE PO (DC) Sodium Chloride (SODIUM CHLORIDE) 10 ML BID IV Sodium Chloride (SODIUM CHLORIDE) 10 ML ASDIR VT N IV Carvedilol (COREG) 3.125 MG C BK DIN PO Lisinopril (ZESTRIL) 2.5 MG DAILY PO Ceftaroline Fosamil (TEFLARO) 400 MG Q8H IV Sodium Chloride (SODIUM CHLORIDE 0.9%) 100 ML Memantine (NAMENDA) 10 MG DAILY PO Donepezil HCl (ARICEPT) 10 MG BEDTIME PO Vancomycin HCl (VANCOMYCIN HCL) 500 MG Q24H IV Sodium Chloride (SODIUM CHLORIDE 0.9% 100 ML) 1 00 ML Acetaminophen (TYLENOL) 650 MG Q4H PRN PRN RECTA L Hydralazine HCl (APRESOLINE) 10 MG Q6H PRN PRN I V Enoxaparin Sodium (lovENOX) 30 MG Q24H SUBQ Lactated Ringer's (LACTATED RINGERS) 1,000 ML GILLIAN MARTY IV Acetaminophen (TYLENOL) 650 MG Q4H PRN PRN PO Ondansetron HCl (ZOFRAN) 4 MG Q4H PRN PRN IV Dextrose/Water (DEXTROSE 50% W SYRINGE) 25 ML DIR PRN IV (CKD) Dextrose/Water (DEXTROSE 50% W SYRINGE) 50 ML DIR PRN IV (CKD) Glucagon (GLUCAGON) 1 MG ASDIR PRN IM Insulin Human Lispro (HUMALOG) 0 AC HS SUBQ Miscellaneous Information (VANCOMYCIN PHARMACY T O DOSE) 1 EACH ASDIR IV (CKD) Functional Progress Functional progress: Refusing PT last few sessions Physical Exam General appearance: alert, awake, frail Psych: flat affect, alert HEENT: anicteric, sclera clear Neck: supple, no JVD Cardiovascular: regular rate rhythm, S1/S2 Respiratory: aerating well, clear bilaterally Abdomen: bowel sounds present, non-distended, so ft Skin: intact, no rash Musculoskeletal - general: Musculoskeletal - general: decreased AROM, rod s strength 3- 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: alert, CNII-XII intact Results Findings/Data: Laboratory Tests: 04/04 0040 Hematology WBC (4.5 - 11.0 x10 3/uL) 7.2 RBC (3.54 - 5.02 x10 6/uL) 3.39 L Hgb (11.0 - 15.0 g/dL) 9.5 L Hct (33.0 - 45.0 %) 30.5 L MCV (81.0 - 99.0 fL) 90.0 MCH (27.0 - 33.0 pg) 28.0 MCHC (33.0 - 37.0 g/dL) 31.1 L RDW (11.5 - 14.5 %) 16.6 H Plt Count (150 - 400 x10 3/uL) 309 MPV (7.0 - 9.0 fL) 10.3 H Neut % (Auto) (56.0 - 77.0 %) 52.1 L Lymph % (Auto) (14.0 - 32.0 %) 36.3 H Phelps % (Auto) (4.8 - 9.0 %) 9.0 Eos % (Auto) (0.3 - 3.7 %) 1.3 Baso % (Auto) (0.0 - 2.0 %) 1.0 Neut # (Auto) (2.0 - 7.6 x10 3/uL) 3.76 Lymph # (Auto) (1.0 - 3.8 x10 3/uL) 2.61 Phelps # (Auto) (0.1 - 0.8 x10 3/uL) 0.65 Eos # (Auto) (0.0 - 0.2 x10 3/uL) 0.09 Baso # (Auto) (0.0 - 0.2 x10 3/uL) 0.07 Abs Immat Gran (auto) (0.00 - 0.03 x10 3/uL) 0. 02 Add Manual Diff NO Immature Gran % (0.0 - 2.0 %) 0.3 Nucleated RBC % (0 - 0 %) 0.0 Nucleated RBCs # (Man) (0.0 - 0.1 x10 3/uL) 0.0 0 Diagnosis, Assessment Plan Free Text A P: Debility Generalized weakness Impaired mobility and gait Infective endocarditis-pulmonary valve Septic shock CKD HTN Anorexia Dementia Frailty Plan: Continue PT. Encouraged participation OT signed off. We will reconsult if I can get cassandra bocanegra to work with PT Out of bed to chair Work on strength, bed mobility, transfers, gait Increase endurance Fall precautions Monitor p.o. intake and nutrition Strict decubitus precautions Advance therapies as tolerated Family now wants to bring patient home. Home ant ibiotics would have to be arranged Total time was 33 minutes > 50% with patient and performing physical examination, discussing plan of care, goals, poor p.o. intake, therapy refusals, minimal progress, medications, labs. All questio ns answered Rehab attestation: . Electronically Signed by Mihir Schneider on 0 04/04/22 at 1812 RPT #:[id number] END OF REPORT 2022-04-03 23:05:00-00:00 [facility] ([facility] Infectious Dis. Progress Note REPORT#:[id number] REPORT STATUS: Signed DATE:04/03/22 TIME: 2304 PATIENT: MICHAELA MATIAS UNIT #: [id number] ROOM/BED: [place] [id number] : 41 AGE: 81 SEX: F ATTEND: Justyn Bueno MD ADM AUTHOR: Kisha Kohli MD, MD * ALL edits or amendments must be made on the [employer]/computer document * Subjective Chief complaint: recurrent bacteremia HPI: This is an 81-year-old white female patient with history of type 2 diabetes, hypertension and chronic kid lizabeth disease who was admitted to an outside hospital in [place] with chest pain and elevated tro ponins. At that time the family decl ined cardiac cath and the patient was discharged and then readmitted because of positive blood cultur es for MRSA. The patient was sent home on IV antibiotics and received 2 weeks of therapy presumably vancomycin. She then re presented to [facility] erg[facility] room with sepsis and the blood cultures were again positive for the same organi sm. She was then transferred to [facility]. IGLESIA 03/24 showed a pulmonary valve vegetation. Patient reports: No: complaints. Review of Systems Unable to obtain due to: mc Objective General VS/I O: Vital Signs Date Temp Pulse Resp B/P B/P Mean Pulse Ox FiO2 04/03 97.5-97.9 63-66 14-17 107-150/63-72 77.6- 96.2 94-97 Last Documented: Result Date Time Pulse Ox 96 04/03 1901 B/P 149/68 04/03 1901 B/P Mean 95.3 04/03 1901 O2 Delivery Room air 04/03 190 Temp 97.5 04/03 1901 Pulse 65 04/03 1901 Resp 16 04/03 1901 O2 Flow Rate 0 03/30 0900 Vital Signs: Date Time Temp Pulse Resp B/P B/P Pulse O2 O2 F low FiO2 Mean Ox Delivery Rate 04/03 1901 97.5 65 16 149/68 95.3 96 Room air 04/03 1819 Room air 04/03 1536 97.7 64 14 107/63 77.6 97 04/03 1052 97.9 63 14 114/64 80.4 95 04/03 0636 97.9 64 14 135/64 87.5 94 04/03 0443 97.5 66 17 150/66 94.3 94 04/03 0025 97.7 66 17 145/72 96.2 95 24 hour I O ending at 0700: 04/03 0700 04/02 1900 Intake Total Output Total 50 Balance -50 Output, Urine 50 PATIENT WEIGHT: Weight (lb): 106 Weight (oz): 7.73 Weight (kg): 48.300 Medications: Active Meds + DC'd Last 24 Hrs Sodium Polystyrene Sulfonate (KAYEXELATE) 30 GM ONCE ONE PO (DC) Sodium Chloride (SODIUM CHLORIDE) 10 ML BID IV Sodium Chloride (SODIUM CHLORIDE) 10 ML ASDIR VT N IV Carvedilol (COREG) 3.125 MG C BK DIN PO Lisinopril (ZESTRIL) 2.5 MG DAILY PO Ceftaroline Fosamil (TEFLARO) 400 MG Q8H IV Sodium Chloride (SODIUM CHLORIDE 0.9%) 100 ML Memantine (NAMENDA) 10 MG DAILY PO Donepezil HCl (ARICEPT) 10 MG BEDTIME PO Vancomycin HCl (VANCOMYCIN HCL) 500 MG Q24H IV Sodium Chloride (SODIUM CHLORIDE 0.9% 100 ML) 1 00 ML Acetaminophen (TYLENOL) 650 MG Q4H PRN PRN RECTA L Hydralazine HCl (APRESOLINE) 10 MG Q6H PRN PRN I V Enoxaparin Sodium (lovENOX) 30 MG Q24H SUBQ Lactated Ringer's (LACTATED RINGERS) 1,000 ML GILLIAN MARTY IV Acetaminophen (TYLENOL) 650 MG Q4H PRN PRN PO Ondansetron HCl (ZOFRAN) 4 MG Q4H PRN PRN IV Dextrose/Water (DEXTROSE 50% W SYRINGE) 25 ML DIR PRN IV (CKD) Dextrose/Water (DEXTROSE 50% W SYRINGE) 50 ML DIR PRN IV (CKD) Glucagon (GLUCAGON) 1 MG ASDIR PRN IM Insulin Human Lispro (HUMALOG) 0 AC HS SUBQ Miscellaneous Information (VANCOMYCIN PHARMACY T O DOSE) 1 EACH ASDIR IV (CKD) Physical Exam General appearance: sleeping comfortably, no acu te distress Head/Eyes: atraumatic, clear cornea ENT: moist mucosal membranes, normal dentition Neck: full range of motion, non-tender Cardiovascular: normal heart sounds, regular rat e rhythm Respiratory: clear to auscultation, aerating wel l Abdomen: non-tender, normal bowel sounds Extremities: moves all, normal capillary refill Musculoskeletal: normal inspection, no joint swe lling Considered stroke alert: no Results Findings/Data: Laboratory Tests 04/03 450 Chemistry Sodium (134 - 147 mEq/L) 137 Potassium (3.4 - 5.0 mEq/L) 5.4 H Chloride (100 - 108 mEq/L) 107 Carbon Dioxide (21 - 33 mEq/l) 22 Anion Gap (0 - 20) 13 BUN (7 - 18 mg/dL) 12 Creatinine (0.6 - 1.3 mg/dL) 1.0 Glomerular Filtr Rate (70 - 80) 53.3 L Glucose (70 - 110 mg/dL) 81 Calcium (8.0 - 10.5 mg/dL) 8.2 Laboratory Tests 04/03 450 Toxicology Vancomycin Trough (10.0 - 20.0 mcg/mL) 13.1 Results: labs reviewed, dolores l signs reviewed, x-ray personally reviewed, current med profile rev'd Treatment Prophylaxis Treatment Prophylaxis CVC/PICC documentation: The data below has been imported from nursing do cumentation. Any exceptions have been noted below under Provider comments. CVC/PICC insertion date/time: No CVC/PICC Provider comments on imported nursing data: [] Diagnosis, Assessment Plan Problem List/A P: 1. MRSA bacteremia 2. Sepsis 3. Infective endocarditis of pulmonary valve 4. CKD (chronic kidney disease) 5. 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 IGLESIA 03/24 showed PV vegetations Repeat blood 03/29 negative @72h Continue Vancomycin/Ceftaroline Proceed with PICC for 4 weeks Vancomycin/Ceftaro line through 04/26 will follow Consultants: cardiology, critical/intens ivist, hospitalist, infectious disease Electronically Signed by Kisha Kohli MD, MD on at 2306 RPT #:[id number] END OF REPORT 2022-04-03 17:34:00-00:00 [facility] Pharm[facility] Prog.Note-Vancomycin REPORT#:[id number] REPORT STATUS: Signed DATE:04/03/22 TIME: 1734 PATIENT: MICHAELA MATIAS UNIT #: [id number] ROOM/BED: [place] [address] : 41 AGE: 81 SEX: F ATTEND: Justyn Bueno MD ADM AUTHOR: Perioc Burgess RP * ALL edits or amendments must be made on the [employer]/computer document * Vancomycin Vancomycin Medication Therapy Goal: AUC 400-600 mcg*hr/mL Indication for treatment: Bacteremia Weight: Actual weight (kg): 155 VS and I/O: Vital Signs Date Temp Pulse Resp B/P B/P Mean Pulse Ox FiO2 03/31-04/03 97.5-98.8 60-68 14-17 103-162/45-72 65.2-97.0 93-97 72 hours ending at 0700 04/03 0700 09/17 1900 04/02 0700 04/01 1900 03/31 0700 1900 Intake 210.00 290 100 Total Output 50 350 Total Balance -50 -140.00 290 100 Intake, IV 210.00 Intake, 240 Oral Intake, 50 100 Oral Supplement Number 2 Bowel Movements Output, 50 350 Urine 72 Hour I O Total 04/03 0700 04/02 0700 04/01 0700 Intake Total 500.00 100 Output Total 50 350 Balance -50 150.00 100 Treatment plan: consult, cont current regimen/do se Regimen: HPI: Michaela Matias is an 81 yo female with PMH of vascular dementia, CAD, DM, HTN, HF, aortic regurgitation, CKD stage III who pres ented to OSH with chest pain, found to have MRSA bacteremia. Patient h ypotensive requiring vasopressors, was admitted to ICU. Pharmacy is consulted to dose v ancomycin. Requesting Provider: Trevon Kimball MD Indication: Bacteremia Vancomycin AUC Goal: 400-600 mcg*hr/mL Concomitant Antibiotics: -Ceftaroline 400 mg IV q8h 04/03 A P * AF, 03/31 WBC 9.2, 03/23 ESR 24 CRP 137 * Renal: Scr 1 BUN 12 , eCrCl: 34 ml/min, UOP 50 ml/24 hrs * Micro: 03/29 BC NG x 4 days, 03/26, 03/24 and 03/23 BC all grew MRSA, MRSA nasal negative * Imagin/8 IGLESIA: Vegetation on pulmonic valve about 1.1 cm * Assessment: Day 11 of therapy. Current vancomy olga dose 500 mg ( 10.3 mg/kg) Q24hrs. 03/30 AUC AUC 421 mcg*hr/mL (therapeutic) , estimated half life 23.05, patient at risk of accumulation, goal trough bas ed on AUC 10-15 mg/ml. Vancomycin trough 04/03 @ 04:50 13.1 (4 hrs late, estimated trough 15 mg/ml). Dose was allowed to clear fo r 40hrs, since slightly high and patient at risk of accumulation. * Plan: Continue regimen of vancomycin 500 mg Q24hrs, and plan to obtain trough level for Monday. Pharmacy will continue to mon itor. at 1839 Electronically Signed by Satish Fajardo [facility] on 04/03 at 1855 RPT #:[id number] END OF REPORT 2022-04-03 14:29:00-00:00 [facility] ([facility]) Hospitalist Progress Note REPORT#:[id number] REPORT STATUS: Signed DATE:04/03/22 TIME: 1429 PATIENT: MICHAELA MATIAS UNIT #: [id number] ROOM/BED: [place] [address] : 41 AGE: 81 SEX: F ATTEND: Justyn Bueno MD ADM AUTHOR: Balwinder Bueno MD * ALL edits or amendments must be made on the [employer] document * Subjective Chief complaint: sleepy. arousable. eating some. no major c/o. no cp. no sob. Patient reports: No: complaints. Objective General VS/I O: Vital Signs: Date Time Temp Pulse Resp B/P B/P Pulse O2 O2 F low FiO2 Mean Ox Delivery Rate 04/03 1052 97.9 63 14 114/64 80.4 95 04/03 0636 97.9 64 14 135/64 87.5 94 04/03 0443 97.5 66 17 150/66 94.3 94 04/03 0025 97.7 66 17 145/72 96.2 95 04/02 1613 98.4 63 16 104/56 72.0 95 24 hour I O ending at 0700: 04/03 0700 04/02 1900 Intake Total Output Total 50 Balance -50 Output, Urine 50 PATIENT WEIGHT: Weight (lb): 106 Weight (oz): 7.73 Weight (kg): 48.300 Physical Exam General appearance: alert, awake, oriented Head/Eyes: atraumatic, normocephalic ENT: normal ear left, normal ear right, normal n ose Neck: full range of motion, no JVD Cardiovascular: normal heart sounds, regular rat e rhythm Respiratory: aerating well, clear to auscultatio n, symmetric expansion, no distress Abdomen: non-tender, normal bowel sounds, soft, no distention Extremities: no clubbing, no cyanosis, no edema 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, no sensory deficit s Considered stroke alert: no Results Findings/Data: Laboratory Tests 04/03 1954 1610 Chemistry Sodium (134 - 147 mEq/L) 137 Potassium (3.4 - 5.0 mEq/L) 5.4 H Chloride (100 - 108 mEq/L) 107 Carbon Dioxide (21 - 33 mEq/l) 22 Anion Gap (0 - 20) 13 BUN (7 - 18 mg/dL) 12 Creatinine (0.6 - 1.3 mg/dL) 1.0 Glomerular Filtr Rate (70 - 80) 53.3 L Glucose (70 - 110 mg/dL) 81 POC Glucose (70 - 110 MG/DL) 104 126 H Calcium (8.0 - 10.5 mg/dL) 8.2 Laboratory Tests 04/03 450 Toxicology Vancomycin Trough (10.0 - 20.0 mcg/mL) 13.1 Diagnosis, Assessment Plan Consultants: cardiology, critical/intens ivist, hospitalist, infectious disease Free Text DxA P Notes Free text DxA P notes: 81 y/o with dementia/HTN/CAD/CHF/aortic regurge/CKD -stage III/DM who presents with persistent bacteremia (presumed MRSA) causi ng sepsis Infective endocarditis Recurrent gram positive bacteremia -at [facility] she was on IV vancomycin IGLESIA showed vegetation in the pulmonary valve culture ....MRSA She will need PICC line after blood culture nega tive 03/28- last bld cx 07/18 still positive. 03/29- repeat bld cx to be dr pedraza today. once negative, picc line and then 6 weeks of IV abx at LTACH. 03/30- awiting ID clearance for PICC placement an d for LTACH transfer. bld cx negative 24 hours so far. 03/31- bld cx negative for 48 hours. picc today? then LTACH? Abonrmal CT chest 03/28- pleural effusion, mult iple nodules, ?pneumoina. ask pulmonary to evaluate. 03/29- need repeat CT chest to f/u on nodules. 03/30- need OUPT repeat CT chest for the nodules Delirium 03/28- MRI brain negative. neuro has signed off Poor po intake 03/28- ask nutrtion to see 03/30 - d/w and pt's daughter ( wa nts daughter to make any decisions). Daughter, Rosemary, does not want a do bhoff for feeding for now. Septic shock - Resolved patient had septic shock at [place] ER req uiring pressors and pt was resussitated with IVF and albumin. Continue to monitor pressure CKD - follow electrolytes, UOP HTN - Per cardiology 03/30- Pt is bradycardic and BP is a bit high...w ill change lopressor to coreg and zestril. 03/31- controlled with zestril/coreg DVT prophylaxis Lovenox subcu 03/26: on physical exam today aphasia which is grewal dden , code stroke called, CT head, no bleeding, discussed with ICC and neuro. ,her symptoms improved (TIA?) discussed with grandughter (Rosemary), and the pat vito's . BC again growing MRSA, discussed with mónica Napoles ow on Teflaro and vanco neuro check, will keep in ICU 03/27: patient still not back to baseline, confus ed, MRI -ve for stroke, discussed with neuro, delirium? on Teflaro and v anc for Infective endocardititis. 03/28- awaiting transfer to t he floor. on IV vanc/teflaro. d/w family at bedside 03/29- awaiting transfer to t he floor. if repeat blx cx negative today, then PICC and 6 more weeks of IV abx at LTACH. d/w case jaime jarvis. 03/30- change BP meds to avoid bradycardi a. awaiting ID clearance for PICC line and then transfer to LTACH for 6 weeks o f IV abx for endocarditis...d/w family about dobhoff for feeding and they do NOT want d obhoff for now, since pt is eating a little. check labs in am. d/w bedside mónica mock. 03/31- transfered to the floor. awaiting PICC and then transfer to LTACH. 04/01-PICC line has not been placed yet. Awaiting for transfer to LTAC. Quality: Gen Med Crit Care VTE Prophylaxis VTE prophylaxis initiated: yes Current Medications Current medication review: I attest that the foregoing medication list in t medical record is true, accurate, and complete to the best of my knowled ge. Advanced Care Plan 65 or Older Discussed with: surrogate decis. maker Discussion included: code status at 1432 RPT #:[id number] END OF REPORT 2022-04-03 09:32:00-00:00 [facility] ([facility] Cardiology Progress Note REPORT#:[id number] REPORT STATUS: Signed DATE:04/03/22 TIME: 931 PATIENT: MICHAELA MATIAS UNIT #: [id number] ROOM/BED: [place] [id number] : 41 AGE: 81 SEX: F ATTEND: Justyn Bueno MD ADM AUTHOR: Sherry Gonsales MD * ALL edits or amendments must be made on the [employer]/computer document * Objective General VS/I O: 24 hour I O ending at 0700: 04/03 0700 04/02 1900 Intake Total Output Total 50 Balance -50 Output, Urine 50 Vital Signs: Date Time Temp Pulse Resp B/P B/P Pulse O2 O2 F low FiO2 Mean Ox Delivery Rate 04/03 0636 36.6 64 14 135/64 87.5 94 04/03 0443 36.4 66 17 150/66 94.3 94 04/03 0025 36.5 66 17 145/72 96.2 95 04/02 1613 36.9 63 16 104/56 72.0 95 04/02 1110 36.4 68 16 103/47 65.5 95 PATIENT WEIGHT: Weight (lb): 106 Weight (oz): 7.73 Weight (kg): 48.300 Medications: Active Meds + DC'd Last 24 Hrs Sodium Chloride (SODIUM CHLORIDE) 10 ML BID IV Sodium Chloride (SODIUM CHLORIDE) 10 ML ASDIR VT N IV Carvedilol (COREG) 3.125 MG C BK DIN PO Lisinopril (ZESTRIL) 2.5 MG DAILY PO Ceftaroline Fosamil (TEFLARO) 400 MG Q8H IV Sodium Chloride (SODIUM CHLORIDE 0.9%) 100 ML Memantine (NAMENDA) 10 MG DAILY PO Donepezil HCl (ARICEPT) 10 MG BEDTIME PO Vancomycin HCl (VANCOMYCIN HCL) 500 MG Q24H IV Sodium Chloride (SODIUM CHLORIDE 0.9% 100 ML) 1 00 ML Acetaminophen (TYLENOL) 650 MG Q4H PRN PRN RECTA L Hydralazine HCl (APRESOLINE) 10 MG Q6H PRN PRN I V Enoxaparin Sodium (lovENOX) 30 MG Q24H SUBQ Lactated Ringer's (LACTATED RINGERS) 1,000 ML GILLIAN MARTY IV Acetaminophen (TYLENOL) 650 MG Q4H PRN PRN PO Ondansetron HCl (ZOFRAN) 4 MG Q4H PRN PRN IV Dextrose/Water (DEXTROSE 50% W SYRINGE) 25 ML DIR PRN IV (CKD) Dextrose/Water (DEXTROSE 50% W SYRINGE) 50 ML DIR PRN IV (CKD) Glucagon (GLUCAGON) 1 MG ASDIR PRN IM Insulin Human Lispro (HUMALOG) 0 AC HS SUBQ Miscellaneous Information (VANCOMYCIN PHARMACY T O DOSE) 1 EACH ASDIR IV (CKD) Physical Exam General appearance: sleeping comfortably Neck: full range of motion, non-tender, normal thyroid, supple/no meningismus, no bruit/NL carotids, no JVD, no lymphadenopathy , no masses or swelling Cardiovascular: CV assessment: regular rate and rhythm Respiratory: clear to auscultation, no distress Abdomen: non-tender, normal bowel sounds , no distention, no guarding, no mass/ organomegaly, no pulsatile mass, no rebound Upper extremity: UE assessment: normal capillary refill, no ammy a Lower extremity: LE assessment: edema, normal capillary refill Considered stroke alert: no Results Findings/Data: Laboratory Tests 04/03 1954 1610 1109 Chemistry Sodium (134 - 147 mEq/L) 137 Potassium (3.4 - 5.0 mEq/L) 5.4 H Chloride (100 - 108 mEq/L) 107 Carbon Dioxide (21 - 33 mEq/l) 22 Anion Gap (0 - 20) 13 BUN (7 - 18 mg/dL) 12 Creatinine (0.6 - 1.3 mg/dL) 1.0 Glomerular Filtr Rate (70 - 80) 53.3 L Glucose (70 - 110 mg/dL) 81 POC Glucose (70 - 110 MG/DL) 104 126 H 138 H Calcium (8.0 - 10.5 mg/dL) 8.2 Laboratory Tests 09/18 0450 Toxicology Vancomycin Trough (10.0 - 20.0 mcg/mL) 13.1 Diagnosis, Assessment Plan Problem List/A P: 1. MRSA bacteremia 2. Sepsis 3. Lactic acidosis 4. Infective endocarditis of pulmonary valve Consultants: cardiology, critical/intens ivist, hospitalist, infectious disease Free Text DxA P Notes Free Text DxA P Notes: 03/24 awake, stable BP , IGLESIA showed veg on pulm valve, ID was informed. IV abx. 03/25 doing well, stable, on IV abx, high BP will star t med, ok to go to tele. 03/26 awake, doing ok, had TIA yes terday, CT was ok, will get echo with bubble study, on IV abx. 03/27 resting, confusion and dementia worse, r estart meds, ok to go to tele, cont IV abx, no PFO on echo, EF is better. 03/28 doing much better today, awake, stable cardiac w ise, on IV abx, in NSR, cont same tx. 03/29 stable, doing ok, awake, no new issues, on IV ab x, going to floor. 03/30 doing ok, stable, no new events, BP is better no w on JAY, give her a dose of lasix for the edema. 03/31 doing well this am, awake, stable on abx , no edema post lasix, cont same care. 04/01 resting, no distress, cont IV abx, awaiting plac ement. 04/02 doing well, awake, eating, on IV abx, awaiting l ine placement then LTAC. 04/03 resting, refusing meds, rehab eval, cont IV abx. Electronically Signed by Sherry Gonsales MD on 0 04/03/22 at 0933 [facility] #:[id number] END OF REPORT 2022-04-03 07:04:00-00:00 [facility] ([facility]) Adult General Consultation REPORT#:[id number] REPORT STATUS: Signed DATE:04/03/22 TIME: 07 PATIENT: MICHAELA MATIAS UNIT #: [id number] ROOM/BED: [place] [address] : 41 AGE: 81 SEX: F ATTEND: Justyn Bueno MD ADM AUTHOR: Mihir Schneider * ALL edits or amendments must be made on the [employer]/computer document * History of Present Illness Reason for consult: PMR consultation Chief complaint: Debility and weakness HPI: This patient is a 81-year-old female with histor y of vascular dementia hospitalized for septic shock in the setting of bacterial endocarditis of the pulmonic valve presenting for evaluation of new onset aphasia and right-sided weakness. The patient had sudden onset right-khurram ed weakness and difficulty speaking sometime between 2 and 3 PM on 03/25, and a stroke alert was activated. The patient was taken for no ncontrast CT scan of the head which not reveal acute abnormalities and CT angio head and neck did not demonstrate evidence of large vessel occlusion. By the time he returned to the patient's room the patient's symptoms had resolved and she was again speaking and moving all 4 extremities. Patient not a candidate for tPA given bacterial endocarditis and no evidence of LVO amenable to mechanical thrombectomy. Patient continues on antibiotics. She has been refusing therapies last few sessions. We have been asked to see her in consultation for physical medicine and rehabilit ation evaluation. History - Adult longitudinal Additional medical history: CAD, low EF, vascular dementia, aortic regurg, s tage III CKD, HTN. Additional surgical history: CABG 1990 hysterectomy Additional family history: not relavent to current illness Alcohol use: Denies EtOH use Drug use: Denies recreational drugs Smoking status for patients 13 years old or olde r: Former Smoker Medications: Home Medications: Medication Dose/Rte/Freq Days Qty Entered Last Max Daily Dose Reviewed CARVEDILOL (COREG) 3.125 MG PO ONCE 03/23/22 Strength: 3.125 MG TAB 2231 2237 LISINOPRIL (ZESTRIL) 2.5 MG PO DAILY 03/23/22 0 03/23/22 Strength: 2.5 MG TAB 2232 2237 ROSUVASTATIN (CRESTOR) 40 MG PO DAILY 03/23/22 03/23/22 Strength: 40 MG TAB 2232 2237 FLUoxetine (PROzac) 20 MG PO DAILY 03/23/2202/04 Strength: 20 MG CAP 2233 2237 OMEPRAZOLE ER 20 MG PO DAILY 03/23/22 03/23/22 Strength: 20 MG CAP. 2233 2237 OXYBUTYNIN (DITROPAN) 5 MG PO ONCE 03/23/2202/04 Strength: 5 MG TAB 2235 2237 MEMANTINE (NAMENDA) 10 MG PO DAILY 03/23/2202/04 Strength: 10 MG TAB 2235 2237 MEMANTINE (NAMENDA) 10 MG PO DAILY 03/23/2202/04 Strength: 10 MG TAB 2236 2237 Current Hospital Medications: Anti-Infective Agents Sig/Kathy Start time Last Medication Dose Route Stop Time Status Admin Ceftaroline Fosamil 400 MG Q8H 03/29 2000 AC (TEFLARO) IV 04/08 1155 0636 Sodium Chloride 100 ML (SODIUM CHLORIDE 0.9%) Vancomycin HCl 500 MG Q24H 03/26 230 AC 04/02 (VANCOMYCIN HCL) IV 04/09 225 0015 Sodium Chloride 100 ML (SODIUM CHLORIDE 0.9% 100 ML) Miscellaneous 1 EACH ASDIR 03/23 2100 CKD Information IV 04/22 2059 (VANCOMYCIN PHARMACY TO DOSE) Autonomic Drugs Sig/Kathy Start time Last Medication Dose Route Stop Time Status Admin Donepezil HCl 10 MG BEDTIME 03/27 2100 AC 03/31 (ARICEPT) PO 04/26 Blood Formation,Coagulation Sig/Kathy Start time Last Medication Dose Route Stop Time Status Admin Enoxaparin Sodium 30 MG Q24H 03/24 2300 AC 03/17 7 (lovENOX) SUBQ 04/23 2259 0015 Cardiovascular Drugs Sig/Kathy Start time Last Medication Dose Route Stop Time Status Admin Carvedilol 3.125 MG C BK DIN 03/30 1700 AC 03/17 7 (COREG) PO 04/29 1659 0957 Lisinopril 2.5 MG DAILY 03/30 1400 AC 04/02 (ZESTRIL) PO 04/29 1359 0957 Hydralazine HCl 10 MG Q6H PRN PRN 03/25 0930 AC 03/31 (APRESOLINE) IV 04/24 0929 0503 Central Nervous System Agents Sig/Kathy Start time Last Medication Dose Route Stop Time Status Admin Memantine 10 MG DAILY 03/28 0900 AC 04/02 (NAMENDA) PO 04/27 0859 0957 Acetaminophen 650 MG Q4H PRN PRN 03/25 1315 AC 03/25 (TYLENOL) RECTAL 04/24 1314 1323 Acetaminophen 650 MG Q4H PRN PRN 03/23 2115 AC 03/27 (TYLENOL) PO 04/22 2114 2335 Electrolytic, Caloric, And Alan Sig/Kathy Start time Last Medication Dose Route Stop Time Status Admin Sodium Chloride 10 ML BID 04/01 2100 AC 04/01 (SODIUM CHLORIDE) IV 05/01 Sodium Chloride 10 ML ASDIR PRN 04/01 1045 AC (SODIUM CHLORIDE) IV 05/01 104 Lactated Ringer's 1,000 ML BOLUS 03/24 115 AC 03/24 (LACTATED RINGERS) IV 04/23 Dextrose/Water 25 ML ASDIR PRN 03/23 2100 CKD (DEXTROSE 50% W IV 04/22 2059 SYRINGE) Dextrose/Water 50 ML ASDIR PRN 03/23 2100 CKD (DEXTROSE 50% W IV 04/22 2059 SYRINGE) Gastrointestinal Drugs Sig/Kathy Start time Last Medication Dose Route Stop Time Status Admin Ondansetron HCl 4 MG Q4H PRN PRN 03/23 2115 AC (ZOFRAN) IV 04/22 2114 Hormones And Synthetic Substit Sig/Kathy Start time Last Medication Dose Route Stop Time Status Admin Glucagon 1 MG ASDIR PRN 03/23 2100 AC (GLUCAGON) IM 04/22 2059 Insulin Human Lispro 0 AC HS 03/23 2100 AC (HUMALOG) SUBQ 04/22 2059 Allergies: Coded Allergies: meperidine (NAUSEA VOMITING 03/23/22) Review of Systems Constitutional: fatigue, generalized weakness. Psych: agitation. All systems rev neg: except as marked Objective VS/I O: Last Documented: Result Date Time Pulse Ox 94 04/03 0636 B/P 135/64 04/03 0636 B/P Mean 87.5 04/03 636 Temp 97.9 04/03 06 Pulse 64 04/03 0636 Resp 14 04/03 636 O2 Delivery Room air 04/02 0448 O2 Flow Rate 0 03/30 900 24 hour I O ending at 0700: 04/03 0700 04/02 1900 Intake Total Output Total 50 Balance -50 Output, Urine 50 PATIENT WEIGHT: Weight (lb): 106 Weight (oz): 7.73 Weight (kg): 48.300 General appearance: alert, awake Head/Eyes: atraumatic, clear cornea, EOMI ENT: normal dentition, normal ear left, normal e ar right Neck: non-tender, no lymphadenopathy Cardiovascular: normal capillary refill, pedal p ulses present, regular rate rhythm, no murmur Respiratory: aerating well, symmetric expansion Abdomen: soft, non-tender, no guarding, no rebou nd Extremities: no edema, no clubbing, no cyanosis Musculoskeletal: decreased ROM, no muscle spasm 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: alert, CNII-XII grossly intact, yoan l speech Skin: intact, no rash Lymphatics: no lymphadenopathy Psychiatry: abnl judgment/insight Results Findings/Data: Laboratory Tests 04/02 1610 1109 0719 1916 Chemistry POC Glucose (70 - 110 MG/DL) 104 126 H 138 H 91 113 H 04/01 04/01 04/01 03/31 03/31 1625 1048 0644 4 1621 Chemistry POC Glucose (70 - 110 MG/DL) 115 H 121 H 77 113 H 112 H Laboratory Tests 03/31 0945 Hematology WBC (4.5 - 11.0 x10 3/uL) 9.2 RBC (3.54 - 5.02 x10 6/uL) 4.03 Hgb (11.0 - 15.0 g/dL) 11.2 Hct (33.0 - 45.0 %) 35.1 MCV (81.0 - 99.0 fL) 87.1 MCH (27.0 - 33.0 pg) 27.8 MCHC (33.0 - 37.0 g/dL) 31.9 L RDW (11.5 - 14.5 %) 16.2 H Plt Count (150 - 400 x10 3/uL) 485 H MPV (7.0 - 9.0 fL) 9.8 H Neut % (Auto) (56.0 - 77.0 %) 68.0 Lymph % (Auto) (14.0 - 32.0 %) 24.1 Phelps % (Auto) (4.8 - 9.0 %) 5.8 Eos % (Auto) (0.3 - 3.7 %) 0.9 Baso % (Auto) (0.0 - 2.0 %) 0.7 Neut # (Auto) (2.0 - 7.6 x10 3/uL) 6.26 Lymph # (Auto) (1.0 - 3.8 x10 3/uL) 2.22 Phelps # (Auto) (0.1 - 0.8 x10 3/uL) 0.53 Eos # (Auto) (0.0 - 0.2 x10 3/uL) 0.08 Baso # (Auto) (0.0 - 0.2 x10 3/uL) 0.06 Abs Immat Gran (auto) (0.00 - 0.03 x10 3/uL) 0. 05 H Add Manual Diff NO Immature Gran % (0.0 - 2.0 %) 0.5 Nucleated RBC % (0 - 0 %) 0.2 H Nucleated RBCs # (Man) (0.0 - 0.1 x10 3/uL) 0.0 2 Laboratory Tests 04/03 0450 Toxicology Vancomycin Trough (10.0 - 20.0 mcg/mL) 13.1 Diagnosis, Assessment Plan Free Text DxA P Notes Free Text DxA P Notes: Debility Generalized weakness Impaired mobility and gait Infective endocarditis-pulmonary valve Septic shock CKD HTN Anorexia Dementia Frailty Plan: Continue PT. Encouraged participation OT signed off. We will reconsult if I can get pa daljit to work with PT Out of bed to chair Work on strength, bed mobility, transfers, gait Increase endurance Fall precautions Monitor p.o. intake and nutrition Strict decubitus precautions Advance therapies as tolerated LTAC consulted Discussed with and stone fonseca at length. We can encourage patient to participate but cannot force her to. I tried to reason with patient and discussed comorbidities that come with immobilit y. We will see if she participates with PT tomorrow. Thank you for referral Electronically Signed by Mihir Schneider on 0 04/03/22 at 1945 RPT #:[id number] END OF REPORT 2022-04-02 17:50:00-00:00 [facility] ([facility]) Infectious Dis. Progress Note REPORT#:[id number] REPORT STATUS: Signed DATE:04/02/22 TIME: 1750 PATIENT: MICHAELA MATIAS UNIT #: [id number] ROOM/BED: 5503-1 : 41 AGE: 81 SEX: F ATTEND: Justyn Bueno MD ADM AUTHOR: Kisha Kohli MD, MD * ALL edits or amendments must be made on the el [employer]/computer document * Subjective Chief complaint: recurrent bacteremia HPI: This is an 81-year-old white female patient with history of type 2 diabetes, hypertension and chronic kid lizabeth disease who was admitted to an outside hospital in [place] with chest pain and elevated tro ponins. At that time the family decl ined cardiac cath and the patient was discharged and then readmitted because of positive blood cultur es for MRSA. The patient was sent home on IV antibiotics and received 2 weeks of therapy presumably vancomycin. She then re presented to [facility] ER room with sepsis and the blood cultures were again positive for the same organi sm. She was then transferred to [facility]. IGLESIA 03/24 showed a pulmonary valve vegetation. Patient reports: No: complaints. Review of Systems Unable to obtain due to: mc Objective General VS/I O: Vital Signs Date Temp Pulse Resp B/P B/P Mean Pulse Ox FiO2 04/01-04/02 97.5-98.6 63-68 14-16 103-153/45-65 65.2-94.5 93-95 Last Documented: Result Date Time Pulse Ox 95 04/02 1613 B/P 104/56 04/02 1613 B/P Mean 72.0 04/02 1613 Temp 98.4 04/02 1613 Pulse 63 04/02 1613 Resp 16 04/02 1613 O2 Delivery Room air 04/02 0448 O2 Flow Rate 0 03/30 0900 Vital Signs: Date Time Temp Pulse Resp B/P B/P Pulse O2 O2 F low FiO2 Mean Ox Delivery Rate 04/02 1613 98.4 63 16 104/56 72.0 95 04/02 1110 97.5 68 16 103/47 65.5 95 04/02 0722 97.9 64 16 136/56 82.7 94 04/02 0448 97.5 64 15 153/65 94.5 94 Room air 04/01 2319 97.7 67 14 105/45 65.2 93 Room air 04/01 1936 98.6 65 15 133/57 82.2 94 Room air 24 hour I O ending at 0700: 04/02 0700 04/01 1900 Intake Total 210.00 290 Output Total 350 Balance -140.00 290 Intake, IV 210.00 Intake, Oral 240 Intake, Oral 50 Supplement Number 2 Bowel Movements Output, Urine 350 PATIENT WEIGHT: Weight (lb): 106 Weight (oz): 7.73 Weight (kg): 48.300 Medications: Active Meds + DC'd Last 24 Hrs Sodium Chloride (SODIUM CHLORIDE) 10 ML BID IV Sodium Chloride (SODIUM CHLORIDE) 10 ML ASDIR VT N IV Carvedilol (COREG) 3.125 MG C BK DIN PO Lisinopril (ZESTRIL) 2.5 MG DAILY PO Ceftaroline Fosamil (TEFLARO) 400 MG Q8H IV Sodium Chloride (SODIUM CHLORIDE 0.9%) 100 ML Memantine (NAMENDA) 10 MG DAILY PO Donepezil HCl (ARICEPT) 10 MG BEDTIME PO Vancomycin HCl (VANCOMYCIN HCL) 500 MG Q24H IV Sodium Chloride (SODIUM CHLORIDE 0.9% 100 ML) 1 00 ML Acetaminophen (TYLENOL) 650 MG Q4H PRN PRN RECTA L Hydralazine HCl (APRESOLINE) 10 MG Q6H PRN PRN I V Enoxaparin Sodium (lovENOX) 30 MG Q24H SUBQ Lactated Ringer's (LACTATED RINGERS) 1,000 ML GILLIAN MARTY IV Acetaminophen (TYLENOL) 650 MG Q4H PRN PRN PO Ondansetron HCl (ZOFRAN) 4 MG Q4H PRN PRN IV Dextrose/Water (DEXTROSE 50% W SYRINGE) 25 ML DIR PRN IV (CKD) Dextrose/Water (DEXTROSE 50% W SYRINGE) 50 ML DIR PRN IV (CKD) Glucagon (GLUCAGON) 1 MG ASDIR PRN IM Insulin Human Lispro (HUMALOG) 0 AC HS SUBQ Miscellaneous Information (VANCOMYCIN PHARMACY T O DOSE) 1 EACH ASDIR IV (CKD) Physical Exam General appearance: no acute distress Head/Eyes: atraumatic, clear cornea ENT: moist mucosal membranes, normal dentition Neck: full range of motion, non-tender Cardiovascular: normal heart sounds, regular rat e rhythm Respiratory: clear to auscultation, aerating wel l Abdomen: non-tender, normal bowel sounds Extremities: moves all, normal capillary refill Musculoskeletal: normal inspection, no joint swe lling Considered stroke alert: no Results Findings/Data: Laboratory Tests 04/02 04/02 04/02 04/01 1610 1109 0719 1916 Chemistry POC Glucose (70 - 110 MG/DL) 126 H 138 H 91 113 H Results: labs reviewed, dolores l signs reviewed, x-ray personally reviewed, current med profile rev'd Treatment Prophylaxis Treatment Prophylaxis CVC/PICC documentation: The data below has been imported from nursing do cumentation. Any exceptions have been noted below under Provider comments. CVC/PICC insertion date/time: No CVC/PICC Provider comments on imported nursing data: [] Diagnosis, Assessment Plan Problem List/A P: 1. MRSA bacteremia 2. Sepsis 3. Infective endocarditis of pulmonary valve 4. CKD (chronic kidney disease) 5. 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 IGLESIA 03/24 showed PV vegetations Repeat blood 03/29 negative @72h Continue Vancomycin/Ceftaroline Proceed with PICC for 4 weeks Vancomycin/Ceftaro line through 04/26 will follow Consultants: cardiology, critical/intens ivist, hospitalist, infectious disease Electronically Signed by Kisha Kohli MD, MD on at 1751 RPT #:[id number] END OF REPORT 2022-04-02 16:54:00-00:00 HCACL [facility] ([facility]) Pharmacy Prog.Note-Vancomycin REPORT#:[id number] REPORT STATUS: Signed DATE:04/02/22 TIME: 1654 PATIENT: MICHAELA MATIAS UNIT #: [id number] ROOM/BED: 5503-1 : 41 AGE: 81 SEX: F ATTEND: Justyn Bueno MD ADM AUTHOR: Perico Burgess h Resi * ALL edits or amendments must be made on the el [employer]/computer document * Vancomycin Vancomycin Medication Therapy Goal: AUC 400-600 mcg*hr/mL Indication for treatment: Bacteremia Weight: Actual weight (kg): 48.3 VS and I/O: Vital Signs Date Temp Pulse Resp B/P B/P Mean Pulse Ox FiO2 03/30-04/02 97.2-98.8 57-68 8-26 103-184/45-76 0.0-109 93-97 72 hours ending at 0700 04/02 0700 04/01 1900 04/01 0703/31 19003/30 07 1900 Intake 210.00 017 955 3657.23 Total Output 350 150 Total Balance -140.00 290 100 956.23 Intake, Free Water Intake, IV 210.00 153.23 Intake, 240 953 Oral Intake, 50 100 0 Oral Supplement Intake, Other Number 2 1 2 Bowel Movements Number 2 1 Incontinen t Voids Output, 350 150 Urine Patient 48.3 kg Weight Weight Bed scale Measuremen t Method 72 Hour I O Total 04/02 0704/01 0703/31 0700 Intake Total 500.00 100 1106.23 Output Total 350 150 Balance 150.00 100 956.23 Treatment plan: consult, cont current regimen/do se Regimen: HPI: Michaela Matias is an 81 yo female with PMH of vascular dementia, CAD, DM, HTN, HF, aortic regurgitation, CKD stage III who pres ented to OSH with chest pain, found to have MRSA bacteremia. Patient h ypotensive requiring vasopressors, was admitted to ICU. Pharmacy is consulted to dose v ancomycin. Requesting Provider: Trevon Kimball MD Indication: Bacteremia Vancomycin AUC Goal: 400-600 mcg*hr/mL Concomitant Antibiotics: -Ceftaroline 400 mg IV q8h 04/02 A P * AF, 03/31 WBC 9.2, 03/23 ESR 24 CRP 137 * Renal: 03/31 Scr 0.9 BUN 9, eCrCl: 38 ml/min, U OP 350 ml #2 voids/24 hrs * Micro: 03/29 BC NG x 4 days, 03/26, 03/24 and 03/23 BC all grew MRSA, MRSA nasal negative * Imagin/8 IGLESIA: Vegetation on pulmonic valve about 1.1 cm * Assessment: Day 10 of therapy. Current vancomy olga dose 500 mg ( 10.3 mg/kg) Q24hrs. 03/30 AUC AUC 421 mcg*hr/mL (therapeutic) , estimated half life 23.05, patient at risk of accumulation, goal trough bas ed on AUC 10-15 mg/ml. * Plan: Order vancomycin trough level for kristianigh t 04/02 @23:30, and evaluate current regimen. Pharmacy will continue to monit or. at 2000 Electronically Signed by Satish Fajardo [facility] on 04/03 at 1308 RPT #:[id number] END OF REPORT 2022-04-02 16:27:00-00:00 [facility] Hospitalist Progress Note REPORT#:[id number] REPORT STATUS: Signed DATE:04/02/22 TIME: 162 PATIENT: MICHAELA MATIAS UNIT #: [id number] ROOM/BED: [place] [address] : 41 AGE: 81 SEX: F ATTEND: Justyn Bueno MD ADM AUTHOR: Balwinder Bueno MD * ALL edits or amendments must be made on the [employer] document * Subjective Chief complaint: sleepy. arousable. eating some. no major c/o. no cp. no sob. Unable to obtain: altered mental status Objective General VS/I O: Vital Signs: Date Time Temp Pulse Resp B/P B/P Pulse O2 O2 F low FiO2 Mean Ox Delivery Rate 04/02 1613 98.4 63 16 104/56 72.0 95 04/02 1110 97.5 68 16 103/47 65.5 95 04/02 0722 97.9 64 16 136/56 82.7 94 04/02 0448 97.5 64 15 153/65 94.5 94 Room air 04/01 2319 97.7 67 14 105/45 65.2 93 Room air 04/01 1936 98.6 65 15 133/57 82.2 94 Room air 24 hour I O ending at 0700: 04/02 0700 04/01 1900 Intake Total 210.00 290 Output Total 350 Balance -140.00 290 Intake, IV 210.00 Intake, Oral 240 Intake, Oral 50 Supplement Number 2 Bowel Movements Output, Urine 350 PATIENT WEIGHT: Weight (lb): 106 Weight (oz): 7.73 Weight (kg): 48.300 Physical Exam General appearance: sleeping comfortably Head/Eyes: atraumatic, normocephalic ENT: normal ear left, normal ear right, normal n ose Neck: full range of motion, no JVD Cardiovascular: normal heart sounds, regular rat e rhythm Respiratory: aerating well, clear to auscultatio n, symmetric expansion, no distress Abdomen: non-tender, normal bowel sounds, soft, no distention Extremities: no clubbing, no cyanosis, no edema 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, no sensory deficit s Considered stroke alert: no Results Findings/Data: Laboratory Tests 04/02 04/02 04/02 04/01 1610 1109 0719 1916 Chemistry POC Glucose (70 - 110 MG/DL) 126 H 138 H 91 113 H Diagnosis, Assessment Plan Consultants: cardiology, critical/intens ivist, hospitalist, infectious disease Free Text DxA P Notes Free text DxA P notes: 81 y/o with dementia/HTN/CAD/CHF/aortic regurge/CKD -stage III/DM who presents with persistent bacteremia (presumed MRSA) causi ng sepsis Infective endocarditis Recurrent gram positive bacteremia -at [facility] she was on IV vancomycin IGLESIA showed vegetation in the pulmonary valve culture ....MRSA She will need PICC line after blood culture nega tive 03/28- last bld cx 1/2 still positive. 03/29- repeat bld cx to be dr pedraza today. once negative, picc line and then 6 weeks of IV abx at [facility]. 03/30- awiting ID clearance for PICC placement an d for LTACH transfer. bld cx negative 24 hours so far. 03/31- bld cx negative for 48 hours. picc today[facility] 03/28- pleural effusion, mult iple nodules, ?pneumoina. ask pulmonary to evaluate. 03/29- need repeat CT chest to f/u on nodules. 03/30- need OUPT repeat CT chest for the nodules Delirium 03/28- MRI brain negative. neuro has signed off Poor po intake 03/28- ask nutrtion to see 03/30 - d/w and pt's daughter ( wa nts daughter to make any decisions). Daughter, Rosemary, does not want a do bhoff for feeding for now. Septic shock - Resolved patient had septic shock at [place] ER req uiring pressors and pt was resussitated with IVF and albumin. Continue to monitor pressure CKD - follow electrolytes, UOP HTN - Per cardiology 03/30- Pt is bradycardic and BP is a bit high...w ill change lopressor to coreg and zestril. 03/31- controlled with zestril/coreg DVT prophylaxis Lovenox subcu 03/26: on physical exam today aphasia which is grewal dden , code stroke called, CT head, no bleeding, discussed with ICC and neuro. ,her symptoms improved (TIA?) discussed with grandughter (Rosemary), and the pat vito's . BC again growing MRSA, discussed with mónica Napoles on Teflaro and vanco neuro check, will keep in ICU 03/27: patient still not back to baseline, confus ed, MRI -ve for stroke, discussed with neuro, delirium? on Teflaro and v anc for Infective endocardititis. 03/28- awaiting transfer to t floor. on IV vanc/teflaro. d/w family at bedside 03/29- awaiting transfer to t floor. if repeat blx cx negative today, then PICC and 6 more weeks of IV abx at LTACH. d/w case jaime jarvis. 03/30- change BP meds to avoid bradycardi a. awaiting ID clearance for PICC line and then transfer to LTACH for 6 weeks o f IV abx for endocarditis...d/w family about dobhoff for feeding and they do NOT want d obhoff for now, since pt is eating a little. check labs in am. d/w bedside mónica mock. 03/31- transfered to the floor. awaiting PICC and then transfer to LTACH. 04/01-PICC line has not been placed yet. Awaiting for transfer to LTAC. Quality: Gen Med Crit Care VTE Prophylaxis VTE prophylaxis initiated: yes Current Medications Current medication review: I attest that the foregoing medication list in [facility] medical record is true, accurate, and complete to the best of my knowled ge. Advanced Care Plan 65 or Older Discussed with: surrogate decis. maker Discussion included: code status at 1628 RPT #:[id number] END OF REPORT 2022-04-02 13:24:00-00:00 [facility] ([facility]) Cardiology Progress Note REPORT#:[id number] REPORT STATUS: Signed DATE:04/02/22 TIME: 1324 PATIENT: MICHAELA MATIAS UNIT #: [id number] ROOM/BED: [place] [address] : 41 AGE: 81 SEX: F ATTEND: Justyn Bueno MD ADM AUTHOR: Sherry Gonsales MD * ALL edits or amendments must be made on the [employer] document * Objective General VS/I O: 24 hour I O ending at 0700: 04/02 0700 04/01 1900 Intake Total 210.00 290 Output Total 350 Balance -140.00 290 Intake, IV 210.00 Intake, Oral 240 Intake, Oral 50 Supplement Number 2 Bowel Movements Output, Urine 350 Vital Signs: Date Time Temp Pulse Resp B/P B/P Pulse O2 O2 F low FiO2 Mean Ox Delivery Rate 04/02 1110 36.4 68 16 103/47 65.5 95 04/02 0722 36.6 64 16 136/56 82.7 94 04/02 0448 36.4 64 15 153/65 94.5 94 Room air 04/01 2319 36.5 67 14 105/45 65.2 93 Room air 04/01 1936 37.0 65 15 133/57 82.2 94 Room air 04/01 1626 36.7 66 14 127/58 80.9 96 PATIENT WEIGHT: Weight (lb): 106 Weight (oz): 7.73 Weight (kg): 48.300 Medications: Active Meds + DC'd Last 24 Hrs Sodium Chloride (SODIUM CHLORIDE) 10 ML BID IV Sodium Chloride (SODIUM CHLORIDE) 10 ML ASDIR VT N IV Carvedilol (COREG) 3.125 MG C BK DIN PO Lisinopril (ZESTRIL) 2.5 MG DAILY PO Ceftaroline Fosamil (TEFLARO) 400 MG Q8H IV Sodium Chloride (SODIUM CHLORIDE 0.9%) 100 ML Memantine (NAMENDA) 10 MG DAILY PO Donepezil HCl (ARICEPT) 10 MG BEDTIME PO Vancomycin HCl (VANCOMYCIN HCL) 500 MG Q24H IV Sodium Chloride (SODIUM CHLORIDE 0.9% 100 ML) 1 00 ML Acetaminophen (TYLENOL) 650 MG Q4H PRN PRN RECTA L Hydralazine HCl (APRESOLINE) 10 MG Q6H PRN PRN I V Enoxaparin Sodium (lovENOX) 30 MG Q24H SUBQ Lactated Ringer's (LACTATED RINGERS) 1,000 ML GILLIAN MARTY IV Acetaminophen (TYLENOL) 650 MG Q4H PRN PRN PO Ondansetron HCl (ZOFRAN) 4 MG Q4H PRN PRN IV Dextrose/Water (DEXTROSE 50% W SYRINGE) 25 ML A SDIR PRN IV (CKD) Dextrose/Water (DEXTROSE 50% W SYRINGE) 50 ML DIR PRN IV (CKD) Glucagon (GLUCAGON) 1 MG ASDIR PRN IM Insulin Human Lispro (HUMALOG) 0 AC HS SUBQ Miscellaneous Information (VANCOMYCIN PHARMACY T O DOSE) 1 EACH ASDIR IV (CKD) Physical Exam General appearance: awake Neck: full range of motion, non-tender, normal thyroid, supple/no meningismus, no bruit/NL carotids, no JVD, no lymphadenopathy , no masses or swelling Cardiovascular: CV assessment: regular rate and rhythm Respiratory: clear to auscultation, no distress Abdomen: non-tender, normal bowel sounds , no distention, no guarding, no mass/ organomegaly, no pulsatile mass, no rebound Upper extremity: UE assessment: normal capillary refill, no ammy a Lower extremity: LE assessment: edema, normal capillary refill Considered stroke alert: no Results Findings/Data: Laboratory Tests 04/02 04/02 04/01 04/01 1109 0719 1916 1625 Chemistry POC Glucose (70 - 110 MG/DL) 138 H 91 113 H 115 H Diagnosis, Assessment Plan Problem List/A P: 1. MRSA bacteremia 2. Sepsis 3. Lactic acidosis 4. Infective endocarditis of pulmonary valve Consultants: cardiology, critical/intens ivist, hospitalist, infectious disease Free Text DxA P Notes Free Text DxA P Notes: 03/24 awake, stable BP , IGLESIA showed veg on pulm valve, ID was informed. IV abx. 03/25 doing well, stable, on IV abx, high BP will star t med, ok to go to tele. 03/26 awake, doing ok, had TIA yes terday, CT was ok, will get echo with bubble study, on IV abx. 03/27 resting, confusion and dementia worse, r estart meds, ok to go to tele, cont IV abx, no PFO on echo, EF is better. 03/28 doing much better today, awake, stable cardiac w ise, on IV abx, in NSR, cont same tx. 03/29 stable, doing ok, awake, no new issues, on IV ab x, going to floor. 03/30 doing ok, stable, no new events, BP is better no w on JAY, give her a dose of lasix for the edema. 03/31 doing well this am, awake, stable on abx , no edema post lasix, cont same care. 04/01 resting, no distress, cont IV abx, awaiting plac ement. 04/02 doing well, awake, eating, on IV abx, awaiting l ine placement then LTAC. Electronically Signed by Sherry Gonsales MD on 0 04/02/22 at 1326 RPT #:[id number] END OF REPORT 2022-04-01 17:55:00-00:00 [facility] Hospitalist Progress Note REPORT#:[id number] REPORT STATUS: Signed DATE:04/01/22 TIME: 1755 PATIENT: MICHAELA MATIAS UNIT #: [id number] ROOM/BED: 5503-1 : 41 AGE: 81 SEX: F ATTEND: Justyn Bueno MD ADM AUTHOR: Balwinder Bueno MD * ALL edits or amendments must be made on the el [employer]/computer document * Subjective Chief complaint: sleepy. arousable. eating some. no major c/o. no cp. no sob. Patient reports: No: complaints. Objective General VS/I O: Vital Signs: Date Time Temp Pulse Resp B/P B/P Pulse O2 O2 F low FiO2 Mean Ox Delivery Rate 04/01 1626 98.1 66 14 127/58 80.9 96 04/01 1050 97.7 67 14 106/49 68.1 94 04/01 0930 95 Room air 04/01 0644 98.8 65 14 145/56 85.8 95 04/01 0353 98.2 67 17 150/59 89.1 95 04/01 0004 97.9 63 17 157/53 87.8 96 03/31 1953 97.9 60 17 162/64 97.0 96 24 hour I O ending at 0700: 04/01 0700 03/31 1900 Intake Total 100 Output Total Balance 100 Intake, Oral 100 Supplement PATIENT WEIGHT: Weight (lb): 106 Weight (oz): 7.73 Weight (kg): 48.300 Physical Exam General appearance: awake Head/Eyes: atraumatic, normocephalic ENT: normal ear left, normal ear right, normal n ose Neck: full range of motion, no JVD Cardiovascular: normal heart sounds, regular rat e rhythm Respiratory: aerating well, clear to auscultatio n, symmetric expansion, no distress Abdomen: non-tender, normal bowel sounds, soft, no distention Extremities: no clubbing, no cyanosis, no edema 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, no sensory deficit s Considered stroke alert: no Results Findings/Data: Laboratory Tests 04/01 04/01 04/01 03/31 1625 1048 0644 1953 Chemistry POC Glucose (70 - 110 MG/DL) 115 H 121 H 77 113 H Diagnosis, Assessment Plan Consultants: cardiology, critical/intens ivist, hospitalist, infectious disease Free Text DxA P Notes Free text DxA P notes: 81 y/o with dementia/HTN/CAD/CHF/aortic regurge/CKD -stage III/DM who presents with persistent bacteremia (presumed MRSA) causi ng sepsis Infective endocarditis Recurrent gram positive bacteremia -at [facility] she was on IV vancomycin IGLESIA showed vegetation in the pulmonary valve culture ....MRSA She will need PICC line after blood culture nega tive 03/28- last bld cx 07/18 still positive. 03/29- repeat bld cx to be dr pedraza today. once negative, picc line and then 6 weeks of IV abx at [facility]. 03/30- awiting ID clearance for PICC placement an d for LTACH transfer. bld cx negative 24 hours so far. 03/31- bld cx negative for 48 hours. picc today? then LTACH? Abonrmal CT chest 03/28- pleural effusion, mult iple nodules, ?pneumoina. ask pulmonary to evaluate. 03/29- need repeat CT chest to f/u on nodules. 03/30- need OUPT repeat CT chest for the nodules Delirium 03/28- MRI brain negative. neuro has signed off Poor po intake 03/28- ask nutrtion to see 03/30 - d/w and pt's daughter ( wa nts daughter to make any decisions). Daughter, Rosemary, does not want a do bhoff for feeding for now. Septic shock - Resolved patient had septic shock at [place] [facility] req uiring pressors and pt was resussitated with IVF and albumin. Continue to monitor pressure CKD - follow electrolytes, UOP HTN - Per cardiology 03/30- Pt is bradycardic and BP is a bit high...w ill change lopressor to coreg and zestril. 03/31- controlled with zestril/coreg DVT prophylaxis Lovenox subcu 03/26: on physical exam today aphasia which is grewal dden , code stroke called, CT head, no bleeding, discussed with ICC and neuro. ,her symptoms improved (TIA?) discussed with grandughter (Rosemary), and the pat vito's . BC again growing MRSA, discussed with Dr Lombardo, mónica ow on Teflaro and vanco neuro check, will keep in ICU 03/27: patient still not back to baseline, confus ed, MRI -ve for stroke, discussed with neuro, delirium? on Teflaro and v anc for Infective endocardititis. 03/28- awaiting transfer to t he floor. on IV vanc/teflaro. d/w family at bedside 03/29- awaiting transfer to t he floor. if repeat blx cx negative today, then PICC and 6 more weeks of IV abx at LTACH. d/w case jaime jarvsi. 03/30- change BP meds to avoid bradycardi a. awaiting ID clearance for PICC line and then transfer to LTACH for 6 weeks o f IV abx for endocarditis...d/w family about dobhoff for feeding and they do NOT want d obhoff for now, since pt is eating a little. check labs in am. d/w bedside n emili. 03/31- transfered to the floor. awaiting PICC and then transfer to LTACH. 04/01-PICC line has not been placed yet. Awaiting for transfer to LTAC. Quality: Gen Med Crit Care VTE Prophylaxis VTE prophylaxis initiated: yes Current Medications Current medication review: I attest that the foregoing medication list in t he medical record is true, accurate, and complete to the best of my knowled ge. Advanced Care Plan 65 or Older Discussed with: surrogate decis. maker Discussion included: code status at 1757 RPT #:[id number] END OF REPORT 2022-04-01 12:44:00-00:00 [facility] Cardiology Progress Note REPORT#:[id number] REPORT STATUS: Signed DATE:04/01/22 TIME: 1244 PATIENT: MICHAELA MATIAS UNIT #: [id number] ROOM/BED: [place] [address] : 41 AGE: 81 SEX: F ATTEND: Justyn Bueno MD ADM AUTHOR: Sherry Gonsales MD * ALL edits or amendments must be made on the el [employer]/computer document * Objective General VS/I O: 24 hour I O ending at 0700: 04/01 0700 03/31 1900 Intake Total 100 Output Total Balance 100 Intake, Oral 100 Supplement Vital Signs: Date Time Temp Pulse Resp B/P B/P Pulse O2 O2 Flow FiO2 Mean Ox Delivery Rate 04/01 1050 36.5 67 14 106/49 68.1 94 04/01 0644 37.1 65 14 145/56 85.8 95 04/01 0353 36.8 67 17 150/59 89.1 95 04/01 0004 36.6 63 17 157/53 87.8 96 03/31 1953 36.6 60 17 162/64 97.0 96 03/31 1540 36.2 62 16 155/52 86.5 97 Room air PATIENT WEIGHT: Weight (lb): 106 Weight (oz): 7.73 Weight (kg): 48.300 Medications: Active Meds + DC'd Last 24 Hrs Sodium Chloride (SODIUM CHLORIDE) 10 ML BID IV Lidocaine HCl (LIDOCAINE 1% 5ML) 5 ML ONCE ONE L OCAL (DC) Sodium Chloride (SODIUM CHLORIDE) 10 ML ASDIR VT N IV Carvedilol (COREG) 3.125 MG C BK DIN PO Lisinopril (ZESTRIL) 2.5 MG DAILY PO Ceftaroline Fosamil (TEFLARO) 400 MG Q8H IV Sodium Chloride (SODIUM CHLORIDE 0.9%) 100 ML Memantine (NAMENDA) 10 MG DAILY PO Donepezil HCl (ARICEPT) 10 MG BEDTIME PO Vancomycin HCl (VANCOMYCIN HCL) 500 MG Q24H IV Sodium Chloride (SODIUM CHLORIDE 0.9% 100 ML) 1 00 ML Acetaminophen (TYLENOL) 650 MG Q4H PRN PRN RECTA L Hydralazine HCl (APRESOLINE) 10 MG Q6H PRN PRN IV Enoxaparin Sodium (lovENOX) 30 MG Q24H SUBQ Lactated Ringer's (LACTATED RINGERS) 1,000 ML GILLIAN MARTY IV Acetaminophen (TYLENOL) 650 MG Q4H PRN PRN PO Ondansetron HCl (ZOFRAN) 4 MG Q4H PRN PRN IV Dextrose/Water (DEXTROSE 50% W SYRINGE) 25 ML DIR PRN IV (CKD) Dextrose/Water (DEXTROSE 50% W SYRINGE) 50 ML DIR PRN IV (CKD) Glucagon (GLUCAGON) 1 MG ASDIR PRN IM Insulin Human Lispro (HUMALOG) 0 AC HS SUBQ Miscellaneous Information (VANCOMYCIN PHARMACY T O DOSE) 1 EACH ASDIR IV (CKD) Physical Exam General appearance: sleeping comfortably Neck: full range of motion, non-tender, normal thyroid, supple/no meningismus, no bruit/NL carotids, no JVD, no lymphadenopathy , no masses or swelling Cardiovascular: CV assessment: regular rate and rhythm Respiratory: clear to auscultation, no distress Abdomen: non-tender, normal bowel sounds , no distention, no guarding, no mass/ organomegaly, no pulsatile mass, no rebound Upper extremity: UE assessment: normal capillary refill, no ammy a Lower extremity: LE assessment: edema, normal capillary refill Considered stroke alert: yes Results Findings/Data: Laboratory Tests 04/01 04/01 03/31 03/31 1048 2835 1596 3731 Chemistry POC Glucose (70 - 110 MG/DL) 121 H 77 113 H 11 2 H Diagnosis, Assessment Plan Problem List/A P: 1. MRSA bacteremia 2. Sepsis 3. Lactic acidosis 4. Infective endocarditis of pulmonary valve Consultants: cardiology, critical/intens ivist, hospitalist, infectious disease Free Text DxA P Notes Free Text DxA P Notes: 03/24 awake, stable BP , IGLESIA showed veg on pulm valve, ID was informed. IV abx. 03/25 doing well, stable, on IV abx, high BP will star t med, ok to go to tele. 03/26 awake, doing ok, had TIA yes terday, CT was ok, will get echo with bubble study, on IV abx. 03/27 resting, confusion and dementia worse, r estart meds, ok to go to tele, cont IV abx, no PFO on echo, EF is better. 03/28 doing much better today, awake, stable cardiac w ise, on IV abx, in NSR, cont same tx. 03/29 stable, doing ok, awake, no new issues, on IV ab x, going to floor. 03/30 doing ok, stable, no new events, BP is better no w on JAY, give her a dose of lasix for the edema. 03/31 doing well this am, awake, stable on abx , no edema post lasix, cont same care. 04/01 resting, no distress, cont IV abx, awaiting plac ement. Electronically Signed by Sherry Gonsales MD on 0 04/01/22 at 1245 [facility] #:[id number] END OF REPORT 2022-04-01 12:33:00-00:00 [facility] ([facility]) Pulmonology Progress Note REPORT#:[id number] REPORT STATUS: Signed DATE:04/01/22 TIME: 1233 PATIENT: MICHAELA MATIAS UNIT #: [id number] ROOM/BED: [place] [address] : 41 AGE: 81 SEX: F ATTEND: Justyn Bueno MD ADM AUTHOR: Shyla Jackson MD * ALL edits or amendments must be made on the [employer]/computer document * Subjective Chief complaint: no acute events overnight Review of Systems ROS Constitutional: Denies: fatigue, fever, lethargy. Respiratory: Denies: hemoptysis, pleurisy, wheezing. Musculoskeletal: Denies: extremity pain, joint swelling, thoracic pain. Heme: Denies: adenopathy, bleeding, bruising, petechia e, other. Objective General VS/I O: Last Documented: Result Date Time Pulse Ox 94 04/01 1050 B/P 106/49 04/01 1050 B/P Mean 68.1 04/01 1050 Temp 36.5 04/01 1050 Pulse 67 04/01 1050 Resp 14 04/01 1050 O2 Delivery Room air 03/31 1540 O2 Flow Rate 0 03/30 0900 24 hour I O ending at 0700: 04/01 0700 03/31 1900 Intake Total 100 Output Total Balance 100 Intake, Oral 100 Supplement PATIENT WEIGHT: Weight (lb): 106 Weight (oz): 7.73 Weight (kg): 48.300 Medications: Active Meds + DC'd Last 24 Hrs Sodium Chloride (SODIUM CHLORIDE) 10 ML BID IV Lidocaine HCl (LIDOCAINE 1% 5ML) 5 ML ONCE ONE L OCAL (DC) Sodium Chloride (SODIUM CHLORIDE) 10 ML ASDIR VT N IV Carvedilol (COREG) 3.125 MG C BK DIN PO Lisinopril (ZESTRIL) 2.5 MG DAILY PO Ceftaroline Fosamil (TEFLARO) 400 MG Q8H IV Sodium Chloride (SODIUM CHLORIDE 0.9%) 100 ML Memantine (NAMENDA) 10 MG DAILY PO Donepezil HCl (ARICEPT) 10 MG BEDTIME PO Vancomycin HCl (VANCOMYCIN HCL) 500 MG Q24H IV Sodium Chloride (SODIUM CHLORIDE 0.9% 100 ML) 1 00 ML Acetaminophen (TYLENOL) 650 MG Q4H PRN PRN RECTA L Hydralazine HCl (APRESOLINE) 10 MG Q6H PRN PRN I V Enoxaparin Sodium (lovENOX) 30 MG Q24H SUBQ Lactated Ringer's (LACTATED RINGERS) 1,000 ML GILLIAN MARTY IV Acetaminophen (TYLENOL) 650 MG Q4H PRN PRN PO Ondansetron HCl (ZOFRAN) 4 MG Q4H PRN PRN IV Dextrose/Water (DEXTROSE 50% W SYRINGE) 25 ML DIR PRN IV (CKD) Dextrose/Water (DEXTROSE 50% W SYRINGE) 50 ML DIR PRN IV (CKD) Glucagon (GLUCAGON) 1 MG ASDIR PRN IM Insulin Human Lispro (HUMALOG) 0 AC HS SUBQ Miscellaneous Information (VANCOMYCIN PHARMACY T O DOSE) 1 EACH ASDIR IV (CKD) Physical Exam General appearance: alert, awake, oriented, no a cute distress, pleasant, conversational, mental status normal, no respira tory distress Head/eyes: atraumatic, normocephalic, PERRL, PER RLA ENT: ENT: moist mucosal membranes Cardiovascular: normal heart sounds, normal S1/S 2, regular rate rhythm, no murmur, no rub, no gallop Respiratory/chest: aerating well, clear to auscultation, symmetric expansion, no distress, no tenderness Abdomen: soft, non-tender Extremities: no cyanosis, no edema, no pedal wesley ma Musculoskeletal: no muscle spasm 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 Sepsis 2. MRSA bacteremia 3. Normocytic anemia 4. Lactic acidosis 5. Acute systolic (congestive) heart failure 6. Infective endocarditis of pulmonary valve 7. CKD (chronic kidney disease) 8. DM2 (diabetes mellitus, type 2) Free Text A P: 1. Pulmonary septic emboli #2 infective endocarditis, pulmonary valve #3 MRSA bacteremia #4 bilateral atelectasis #5 small pleural effusion #5 pulmonary nodules Stable pulmonary status on room air Keep SPo2>92% Get PT/OT Add IS Oxygen support PRN CTA chest with bilateral lico iable sized pulmonary nodules consistent with active inflammatory/infectious process, it is s eptic emboli secondary to a right side endocarditis Patient is a smoker [id number], high risk of m alignancy We will plan to repeat the C AT scan in 6 weeks to assure stability of the nodule or resolution Antibiotic vancomycin and ceftaroline per ID Looks euvolemic Pulmonary toilet DVT ppx Full COde Consultants: cardiology, critical/intens ivist, hospitalist, infectious disease Electronically Signed by Shyla Jackson MD n 04/01/22 at 1234 RPT #:[id number] END OF REPORT 2022-04-01 10:41:00-00:00 [facility] ([facility]) Infectious Dis. Progress Note REPORT#:[id number] REPORT STATUS: Signed DATE:04/01/22 TIME: 1041 PATIENT: MICHAELA MATIAS UNIT #: [id number] ROOM/BED: [place] [address] : 41 AGE: 81 SEX: F ATTEND: Justyn Bueno MD ADM AUTHOR: Kisha Kohli MD, MD * ALL edits or amendments must be made on the [employer]/computer document * Subjective Chief complaint: recurrent bacteremia HPI: This is an 81-year-old white female patient with history of type 2 diabetes, hypertension and chronic kid lizabeth disease who was admitted to an outside hospital in [place] with chest pain and elevated tro ponins. At that time the family decl ined cardiac cath and the patient was discharged and then readmitted because of positive blood cultur es for MRSA. The patient was sent home on IV antibiotics and received 2 weeks of therapy presumably vancomycin. She then re presented to [facility] ER room with sepsis and the blood cultures were again positive for the same organi sm. She was then transferred to [facility]. IGLESIA 03/24 showed a pulmonary valve vegetation. Patient reports: No: complaints. Review of Systems Constitutional: Denies: chills, fatigue. Skin: Denies: abrasion, bruising. Allergy/Immun: Denies: allergic reaction, anaphylaxis. Eyes: Denies: redness, discharge. ENT: Denies: ear drainage, ear ringing. Respiratory: Denies: DEE (dyspnea on exertion), hemoptysis. Cardiovascular: Denies: chest pain, DEE (dyspnea on exertion). Objective General VS/I O: Vital Signs Date Temp Pulse Resp B/P B/P Mean Pulse Ox FiO2 03/31-04/01 97.2-98.8 60-67 14-17 145-162/52-64 85.8-97.0 95-97 Last Documented: Result Date Time Pulse Ox 95 04/01 0644 B/P 145/56 04/01 0644 B/P Mean 85.8 04/01 0644 Temp 98.8 04/01 0644 Pulse 65 04/01 0644 Resp 14 04/01 0644 O2 Delivery Room air 03/31 1540 O2 Flow Rate 0 03/30 0900 Vital Signs: Date Time Temp Pulse Resp B/P B/P Pulse O2 O2 F low FiO2 Mean Ox Delivery Rate 04/01 0644 98.8 65 14 145/56 85.8 95 04/01 0353 98.2 67 17 150/59 89.1 95 04/01 0004 97.9 63 17 157/53 87.8 96 03/31 1953 97.9 60 17 162/64 97.0 96 03/31 1540 97.2 62 16 155/52 86.5 97 Room air 24 hour I O ending at 0700: 04/01 0700 03/31 1900 Intake Total 100 Output Total Balance 100 Intake, Oral 100 Supplement PATIENT WEIGHT: Weight (lb): 106 Weight (oz): 7.73 Weight (kg): 48.300 Medications: Active Meds + DC'd Last 24 Hrs Carvedilol (COREG) 3.125 MG C BK DIN PO Lisinopril (ZESTRIL) 2.5 MG DAILY PO Ceftaroline Fosamil (TEFLARO) 400 MG Q8H IV Sodium Chloride (SODIUM CHLORIDE 0.9%) 100 ML Memantine (NAMENDA) 10 MG DAILY PO Donepezil HCl (ARICEPT) 10 MG BEDTIME PO Vancomycin HCl (VANCOMYCIN HCL) 500 MG Q24H IV Sodium Chloride (SODIUM CHLORIDE 0.9% 100 ML) 1 00 ML Acetaminophen (TYLENOL) 650 MG Q4H PRN PRN RECTA L Hydralazine HCl (APRESOLINE) 10 MG Q6H PRN PRN I V Enoxaparin Sodium (lovENOX) 30 MG Q24H SUBQ Lactated Ringer's (LACTATED RINGERS) 1,000 ML GILLIAN MARTY IV Acetaminophen (TYLENOL) 650 MG Q4H PRN PRN PO Ondansetron HCl (ZOFRAN) 4 MG Q4H PRN PRN IV Dextrose/Water (DEXTROSE 50% W SYRINGE) 25 ML DIR PRN IV (CKD) Dextrose/Water (DEXTROSE 50% W SYRINGE) 50 ML DIR PRN IV (CKD) Glucagon (GLUCAGON) 1 MG ASDIR PRN IM Insulin Human Lispro (HUMALOG) 0 AC HS SUBQ Miscellaneous Information (VANCOMYCIN PHARMACY T O DOSE) 1 EACH ASDIR IV (CKD) Physical Exam General appearance: no acute distress Head/Eyes: atraumatic, clear cornea ENT: moist mucosal membranes, normal dentition Neck: full range of motion, non-tender Cardiovascular: normal heart sounds, regular rat e rhythm Respiratory: clear to auscultation, aerating wel l Abdomen: non-tender, normal bowel sounds Extremities: moves all, normal capillary refill Musculoskeletal: normal inspection, no joint swe lling Considered stroke alert: yes Results Findings/Data: Laboratory Tests 04/01 03/31 03/31 0644 1954 1621 Chemistry POC Glucose (70 - 110 MG/DL) 77 113 H 112 H Results: labs reviewed, dolores l signs reviewed, x-ray personally reviewed, current med profile rev'd Treatment Prophylaxis Treatment Prophylaxis CVC/PICC documentation: The data below has been imported from nursing do cumentation. Any exceptions have been noted below under Provider comments. CVC/PICC insertion date/time: No CVC/PICC Provider comments on imported nursing data: [] Diagnosis, Assessment Plan Problem List/A P: 1. MRSA bacteremia 2. Sepsis 3. Infective endocarditis of pulmonary valve 4. CKD (chronic kidney disease) 5. 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 Progress Note REPORT#:[id number] REPORT STATUS: Signed DATE:03/31/22 TIME: 1511 PATIENT: MICHAELA MATIAS UNIT #: [id number] ROOM/BED: [place] [address] : 41 AGE: 81 SEX: F ATTEND: Trevon Kimball MD ADM AUTHOR: Kisha Kohli MD, MD * ALL edits or amendments must be made on the [employer]/computer document * Subjective Chief complaint: recurrent bacteremia HPI: This is an 81-year-old white female patient with history of type 2 diabetes, hypertension and chronic kid lizabeth disease who was admitted to an outside hospital in [place] with chest pain and elevated tro ponins. At that time the family decl ined cardiac cath and the patient was discharged and then readmitted because of positive blood cultur es for MRSA. The patient was sent home on IV antibiotics and received 2 weeks of therapy presumably vancomycin. She then re presented to [facility] ER room with sepsis and the blood cultures were again positive for the same organi sm. She was then transferred to [facility]. IGLESIA 03/24 showed a pulmonary valve vegetation. Patient reports: No: complaints. Review of Systems Unable to obtain due to: mc Objective General VS/I O: Vital Signs Date Temp Pulse Resp B/P B/P Mean Pulse Ox FiO2 03/30-03/31 97.3-98.1 56-63 8-26 111-184/54-76 0.0-109 95-97 Last Documented: Result Date Time Pulse Ox 95 03/31 1030 B/P 123/54 03/31 1030 B/P Mean 77.1 03/31 1030 O2 Delivery Room air 03/31 1030 Temp 97.3 03/31 1030 Pulse 63 03/31 1030 Resp 16 03/31 1030 O2 Flow Rate 0 03/30 0900 Vital Signs: Date Time Temp Pulse Resp B/P B/P Pulse O2 O2 F low FiO2 Mean Ox Delivery Rate 03/31 1030 97.3 63 16 123/54 77.1 95 Room air 03/31 0652 97.9 62 16 136/62 86.7 95 03/31 0423 97.5 60 16 184/74 0.0 96 Room air 03/30 2243 98.1 60 15 159/57 91.0 95 Room air 03/30 2100 62 8 175/76 109 96 03/30 2000 58 15 147/67 96 96 03/30 1800 57 16 111/55 79 96 03/30 1700 57 26 151/67 96 97 Room air 03/30 1700 57 26 151/67 96 97 03/30 1600 97.7 56 18 155/68 98 97 Room air 03/30 1600 56 18 155/68 98 97 24 hour I O ending at 0700: 03/31 0700 03/30 1900 Intake Total 1106.23 Output Total 150 Balance 956.23 Intake, Free Water Intake, IV 153.23 Intake, Oral 953 Intake, Oral 0 Supplement Intake, Other Number 1 2 Bowel Movements Number 2 1 Incontinent Voids Output, Urine 150 Patient 48.3 kg Weight Weight Bed scale Measurement Method PATIENT WEIGHT: Weight (lb): 106 Weight (oz): 7.73 Weight (kg): 48.300 Medications: Active Meds + DC'd Last 24 Hrs Furosemide (LASIX 40 mg/4 mL INJECTION) 40 MG ON CE ONE IV (DC) Carvedilol (COREG) 3.125 MG C BK DIN PO Lisinopril (ZESTRIL) 2.5 MG DAILY PO Ceftaroline Fosamil (TEFLARO) 400 MG Q8H IV Sodium Chloride (SODIUM CHLORIDE 0.9%) 100 ML Memantine (NAMENDA) 10 MG DAILY PO Donepezil HCl (ARICEPT) 10 MG BEDTIME PO Vancomycin HCl (VANCOMYCIN HCL) 500 MG Q24H IV Sodium Chloride (SODIUM CHLORIDE 0.9% 100 ML) 1 00 ML Acetaminophen (TYLENOL) 650 MG Q4H PRN PRN RECT AL Hydralazine HCl (APRESOLINE) 10 MG Q6H PRN PRN I V Enoxaparin Sodium (lovENOX) 30 MG Q24H SUBQ Lactated Ringer's (LACTATED RINGERS) 1,000 ML GILLIAN MARTY IV Acetaminophen (TYLENOL) 650 MG Q4H PRN PRN PO Ondansetron HCl (ZOFRAN) 4 MG Q4H PRN PRN IV Dextrose/Water (DEXTROSE 50% W SYRINGE) 25 ML DIR PRN IV (CKD) Dextrose/Water (DEXTROSE 50% W SYRINGE) 50 ML DIR PRN IV (CKD) Glucagon (GLUCAGON) 1 MG ASDIR PRN IM Insulin Human Lispro (HUMALOG) 0 AC HS SUBQ Miscellaneous Information (VANCOMYCIN PHARMACY T O DOSE) 1 EACH ASDIR IV (CKD) Physical Exam General appearance: sleeping comfortably Head/Eyes: atraumatic, clear cornea ENT: moist mucosal membranes, normal dentition Neck: full range of motion, non-tender Cardiovascular: normal heart sounds, regular rat e rhythm Respiratory: clear to auscultation, aerating wel l Abdomen: non-tender, normal bowel sounds Extremities: moves all, normal capillary refill Musculoskeletal: normal inspection, no joint swe lling Considered stroke alert: yes Results Findings/Data: Laboratory Tests 03/31 03/30 03/30 0400 2053 1704 Chemistry Sodium (134 - 147 mEq/L) 141 Potassium (3.4 - 5.0 mEq/L) 4.1 Chloride (100 - 108 mEq/L) 107 Carbon Dioxide (21 - 33 mEq/l) 22 Anion Gap (0 - 20) 16 BUN (7 - 18 mg/dL) 9 Creatinine (0.6 - 1.3 mg/dL) 0.9 Glomerular Filtr Rate (70 - 80) 60.2 L Glucose (70 - 110 mg/dL) 72 POC Glucose (70 - 110 MG/DL) 103 95 Calcium (8.0 - 10.5 mg/dL) 8.1 Magnesium (1.80 - 2.40 mg/dL) 1.92 Laboratory Tests 03/31 0945 Hematology WBC (4.5 - 11.0 x10 3/uL) 9.2 RBC (3.54 - 5.02 x10 6/uL) 4.03 Hgb (11.0 - 15.0 g/dL) 11.2 Hct (33.0 - 45.0 %) 35.1 MCV (81.0 - 99.0 fL) 87.1 MCH (27.0 - 33.0 pg) 27.8 MCHC (33.0 - 37.0 g/dL) 31.9 L RDW (11.5 - 14.5 %) 16.2 H Plt Count (150 - 400 x10 3/uL) 485 H MPV (7.0 - 9.0 fL) 9.8 H Neut % (Auto) (56.0 - 77.0 %) 68.0 Lymph % (Auto) (14.0 - 32.0 %) 24.1 Phelps % (Auto) (4.8 - 9.0 %) 5.8 Eos % (Auto) (0.3 - 3.7 %) 0.9 Baso % (Auto) (0.0 - 2.0 %) 0.7 Neut # (Auto) (2.0 - 7.6 x10 3/uL) 6.26 Lymph # (Auto) (1.0 - 3.8 x10 3/uL) 2.22 Phelps # (Auto) (0.1 - 0.8 x10 3/uL) 0.53 Eos # (Auto) (0.0 - 0.2 x10 3/uL) 0.08 Baso # (Auto) (0.0 - 0.2 x10 3/uL) 0.06 Abs Immat Gran (auto) (0.00 - 0.03 x10 3/uL) 0. 05 H Add Manual Diff NO Immature Gran % (0.0 - 2.0 %) 0.5 Nucleated RBC % (0 - 0 %) 0.2 H Nucleated RBCs # (Man) (0.0 - 0.1 x10 3/uL) 0.0 2 Results: labs reviewed, dolores l signs reviewed, x-ray personally reviewed, current med profile rev'd Treatment Prophylaxis Treatment Prophylaxis CVC/PICC documentation: The data below has been imported from nursing do cumentation. Any exceptions have been noted below under Provider comments. CVC/PICC insertion date/time: No CVC/PICC Provider comments on imported nursing data: [] Diagnosis, Assessment Plan Problem List/A P: 1. MRSA bacteremia 2. Sepsis 3. Infective endocarditis of pulmonary valve 4. CKD (chronic kidney disease) 5. 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 IGLESIA 03/24 showed PV vegetations Repeat blood 03/29 negative @48h Continue Vancomycin/Ceftaroline plan on PICC likely tomorrow for 4 weeks Vancomy olga/Ceftaroline through 04/26 will follow Consultants: cardiology, critical/intens ivist, hospitalist, infectious disease Electronically Signed by Kisha Kohli MD, MD on at 1516 RPT #:[id number] END OF REPORT 2022-03-31 13:16:00-00:00 [facility] ([facility]) Pulmonology Progress Note REPORT#:[id number] REPORT STATUS: Signed DATE:03/31/22 TIME: 1316 PATIENT: MICHAELA MATIAS UNIT #: [id number] ROOM/BED: [address] : 41 AGE: 81 SEX: F ATTEND: Trevon Kimball MD ADM AUTHOR: Alida Westfall MD * ALL edits or amendments must be made on the [employer]/computer document * Review of Systems ROS Constitutional: Denies: fatigue, fever, lethargy. Respiratory: Denies: hemoptysis, pleurisy, wheezing. Musculoskeletal: Denies: extremity pain, joint swelling, thoracic pain. Heme: Denies: adenopathy, bleeding, bruising, petechia e, other. Objective General VS/I O: Last Documented: Result Date Time Pulse Ox 95 03/31 1030 B/P 123/54 03/31 1030 B/P Mean 77.1 03/31 1030 O2 Delivery Room air 03/31 1030 Temp 36.3 03/31 1030 Pulse 63 03/31 1030 Resp 16 03/31 1030 O2 Flow Rate 0 03/30 0900 24 hour I O ending at 0700: 03/31 0700 03/30 1900 Intake Total 1106.23 Output Total 150 Balance 956.23 Intake, Free Water Intake, IV 153.23 Intake, Oral 953 Intake, Oral 0 Supplement Intake, Other Number 1 2 Bowel Movements Number 2 1 Incontinent Voids Output, Urine 150 Patient 48.3 kg Weight Weight Bed scale Measurement Method PATIENT WEIGHT: Weight (lb): 106 Weight (oz): 7.73 Weight (kg): 48.300 Medications: Active Meds + DC'd Last 24 Hrs Furosemide (LASIX 40 mg/4 mL INJECTION) 40 MG ON CE ONE IV (DC) Carvedilol (COREG) 3.125 MG C BK DIN PO Lisinopril (ZESTRIL) 2.5 MG DAILY PO Ceftaroline Fosamil (TEFLARO) 400 MG Q8H IV Sodium Chloride (SODIUM CHLORIDE 0.9%) 100 ML Memantine (NAMENDA) 10 MG DAILY PO Donepezil HCl (ARICEPT) 10 MG BEDTIME PO Vancomycin HCl (VANCOMYCIN HCL) 500 MG Q24H IV Sodium Chloride (SODIUM CHLORIDE 0.9% 100 ML) 1 00 ML Metoprolol Tartrate (LOPRESSOR) 25 MG Q12HR PO ( DC) Acetaminophen (TYLENOL) 650 MG Q4H PRN PRN RECTA L Hydralazine HCl (APRESOLINE) 10 MG Q6H PRN PRN I V Enoxaparin Sodium (lovENOX) 30 MG Q24H SUBQ Calcium Gluconate/Sodium Chloride (Calcium Gluco alexia 1 GM/NS 50 mL) 50 ML ASDIR PRN IV (DC) Calcium Gluconate/Sodium Chloride (Calcium Gluco alexia 2 GM/NS 100 mL) 100 ML ASDIR PRN IV (DC) Lactated Ringer's (LACTATED RINGERS) 1,000 ML GILLIAN MARTY IV Magnesium Sulfate (MAGNESIUM SULFATE 2GM/SWFI 50 ML) 50 ML ASDIR PRN IV ( DC) Potassium Chloride (KCL 20MEQ/SWFI 100ML) 100 ML ASDIR PRN IV (DC) Potassium Chloride (POTASSIUM CHLORIDE 20MEQ TAB .ER) 20 MEQ ASDIR PRN PO (DC) Potassium Chloride (POTASSIUM CHLORIDE 20MEQ TAB .ER) 40 MEQ ASDIR PRN PO (DC) Potassium Phosphate (POTASSIUM PHOSPHATE) 15 MM ASDIR PRN IV (DC) Sodium Chloride (SODIUM CHLORIDE 0.9%) 100 ML Potassium Phosphate (POTASSIUM PHOSPHATE) 20 MM ASDIR PRN IV (DC) Sodium Chloride (SODIUM CHLORIDE 0.9%) 250 ML Potassium Phosphate (POTASSIUM PHOSPHATE) 30 MM ASDIR PRN IV (DC) Sodium Chloride (SODIUM CHLORIDE 0.9%) 250 ML Sodium Phosphate (SODIUM PHOSPHATE) 15 MMOL ASDI R PRN IV (DC) Sodium Chloride (SODIUM CHLORIDE 0.9%) 100 ML Sodium Phosphate (SODIUM PHOSPHATE) 20 MMOL ASDI R PRN IV (DC) Sodium Chloride (SODIUM CHLORIDE 0.9%) 250 ML Sodium Phosphate (SODIUM PHOSPHATE) 30 MMOL ASDI R PRN IV (DC) Sodium Chloride (SODIUM CHLORIDE 0.9%) 250 ML Acetaminophen (TYLENOL) 650 MG Q4H PRN PRN PO Ondansetron HCl (ZOFRAN) 4 MG Q4H PRN PRN IV Dextrose/Water (DEXTROSE 50% W SYRINGE) 25 ML DIR PRN IV (CKD) Dextrose/Water (DEXTROSE 50% W SYRINGE) 50 ML DIR PRN IV (CKD) Glucagon (GLUCAGON) 1 MG ASDIR PRN IM Insulin Human Lispro (HUMALOG) 0 AC HS SUBQ Miscellaneous Information (VANCOMYCIN PHARMACY T O DOSE) 1 EACH ASDIR IV (CKD) Physical Exam Considered stroke alert: yes Free Text Obj Notes Free Text Obj Notes: General appearance: Not in distress Head/Eyes: atraumatic, normocephalic, PERRLA Neck: full range of motion, non-tender, normal t hyroid Cardiovascular: normal heart sounds, normal S1/S 2, regular rate rhythm Respiratory/chest: aerating well, clear to auscu ltation, symmetric expansion Abdomen: soft, non-tender, normal bowel sounds Genitourinary: no bladder distention, no flank p ain Extremities: No edema, moves all, normal capilla ry refill, no calf tenderness Musculoskeletal: full range of motion, normal in spection, painless range of motion, straight leg raise neg Skin: dry, intact, normal color Diagnosis, Assessment Plan Problem List/A P: 1. Sepsis 2. MRSA bacteremia 3. Normocytic anemia 4. Lactic acidosis 5. Acute systolic (congestive) heart failure 6. Infective endocarditis of pulmonary valve 7. CKD (chronic kidney disease) 8. DM2 (diabetes mellitus, type 2) Free Text A P: 1. Pulmonary septic emboli #2 infective endocarditis, pulmonary valve #3 MRSA bacteremia #4 bilateral atelectasis #5 small pleural effusion #5 pulmonary nodules CTA chest reviewed, bilateral variable s ized pulmonary nodules consistent with active inflammatory/infectio us process, it is septic emboli secondary to a right side endocarditis Patient is a smoker [id number], high risk of m alignancy We will plan to repeat the C AT scan in 6 weeks to assure stability of the nodule or resolution Antibiotic vancomycin and ceftaroline per ID Looks euvolemic Pulmonary toilet Quality: Gen Med Crit Care VTE Prophylaxis VTE prophylaxis initiated: yes Electronically Signed by Alida Westfall MD on 03/17 12/05 at 1316 RPT #:[id number] END OF REPORT 2022-03-31 12:35:00-00:00 [facility] ([facility]) Cardiology Progress Note REPORT#:[id number] REPORT STATUS: Signed DATE:03/31/22 TIME: 1235 PATIENT: MICHAELA MATIAS UNIT #: [id number] ROOM/BED: [place] [id number] : 41 AGE: 81 SEX: F ATTEND: Trevon Kimball MD ADM AUTHOR: Sherry Gonsales MD * ALL edits or amendments must be made on the [employer]/computer document * Objective General VS/I O: 24 hour I O ending at 0700: 03/31 0700 03/30 1900 Intake Total 1106.23 Output Total 150 Balance 956.23 Intake, Free Water Intake, IV 153.23 Intake, Oral 953 Intake, Oral 0 Supplement Intake, Other Number 1 2 Bowel Movements Number 2 1 Incontinent Voids Output, Urine 150 Patient 48.3 kg Weight Weight Bed scale Measurement Method Vital Signs: Date Time Temp Pulse Resp B/P B/P Pulse O2 O2 F low FiO2 Mean Ox Delivery Rate 03/31 1030 36.3 63 16 123/54 77.1 95 Room air 03/31 0652 36.6 62 16 136/62 86.7 95 03/31 0423 36.4 60 16 184/74 0.0 96 Room air 03/30 2243 36.7 60 15 159/57 91.0 95 Room air 03/30 2100 62 8 175/76 109 96 03/30 2000 58 15 147/67 96 96 03/30 1800 57 16 111/55 79 96 03/30 1700 57 26 151/67 96 97 Room air 03/30 1700 57 26 151/67 96 97 03/30 1600 36.5 56 18 155/68 98 97 Room air 03/30 1600 56 18 155/68 98 97 03/30 1501 65 03/30 1501 65 19 147/65 93 96 03/30 1400 56 19 166/72 103 95 03/30 1300 54 16 153/69 99 96 PATIENT WEIGHT: Weight (lb): 106 Weight (oz): 7.73 Weight (kg): 48.300 Medications: Active Meds + DC'd Last 24 Hrs Furosemide (LASIX 40 mg/4 mL INJECTION) 40 MG ON CE ONE IV (DC) Carvedilol (COREG) 3.125 MG C BK DIN PO Lisinopril (ZESTRIL) 2.5 MG DAILY PO Ceftaroline Fosamil (TEFLARO) 400 MG Q8H IV Sodium Chloride (SODIUM CHLORIDE 0.9%) 100 ML Memantine (NAMENDA) 10 MG DAILY PO Donepezil HCl (ARICEPT) 10 MG BEDTIME PO Vancomycin HCl (VANCOMYCIN HCL) 500 MG Q24H IV Sodium Chloride (SODIUM CHLORIDE 0.9% 100 ML) 1 00 ML Metoprolol Tartrate (LOPRESSOR) 25 MG Q12HR PO ( DC) Acetaminophen (TYLENOL) 650 MG Q4H PRN PRN RECTA L Hydralazine HCl (APRESOLINE) 10 MG Q6H PRN PRN I V Enoxaparin Sodium (lovENOX) 30 MG Q24H SUBQ Calcium Gluconate/Sodium Chloride (Calcium Gluco alexia 1 GM/NS 50 mL) 50 ML ASDIR PRN IV (DC) Calcium Gluconate/Sodium Chloride (Calcium Gluco alexia 2 GM/NS 100 mL) 100 ML ASDIR PRN IV (DC) Lactated Ringer's (LACTATED RINGERS) 1,000 ML GILLIAN MARTY IV Magnesium Sulfate (MAGNESIUM SULFATE 2GM/SWFI 50 ML) 50 ML ASDIR PRN IV ( DC) Potassium Chloride (KCL 20MEQ/SWFI 100ML) 100 ML ASDIR PRN IV (DC) Potassium Chloride (POTASSIUM CHLORIDE 20MEQ TAB .ER) 20 MEQ ASDIR PRN PO (DC) Potassium Chloride (POTASSIUM CHLORIDE 20MEQ TAB .ER) 40 MEQ ASDIR PRN PO (DC) Potassium Phosphate (POTASSIUM PHOSPHATE) 15 MM ASDIR PRN IV (DC) Sodium Chloride (SODIUM CHLORIDE 0.9%) 100 ML Potassium Phosphate (POTASSIUM PHOSPHATE) 20 MM ASDIR PRN IV (DC) Sodium Chloride (SODIUM CHLORIDE 0.9%) 250 ML Potassium Phosphate (POTASSIUM PHOSPHATE) 30 MM ASDIR PRN IV (DC) Sodium Chloride (SODIUM CHLORIDE 0.9%) 250 ML Sodium Phosphate (SODIUM PHOSPHATE) 15 MMOL ASDI R PRN IV (DC) Sodium Chloride (SODIUM CHLORIDE 0.9%) 100 ML Sodium Phosphate (SODIUM PHOSPHATE) 20 MMOL ASDI R PRN IV (DC) Sodium Chloride (SODIUM CHLORIDE 0.9%) 250 ML Sodium Phosphate (SODIUM PHOSPHATE) 30 MMOL ASDI R PRN IV (DC) Sodium Chloride (SODIUM CHLORIDE 0.9%) 250 ML Acetaminophen (TYLENOL) 650 MG Q4H PRN PRN PO Ondansetron HCl (ZOFRAN) 4 MG Q4H PRN PRN IV Dextrose/Water (DEXTROSE 50% W SYRINGE) 25 ML DIR PRN IV (CKD) Dextrose/Water (DEXTROSE 50% W SYRINGE) 50 ML DIR PRN IV (CKD) Glucagon (GLUCAGON) 1 MG ASDIR PRN IM Insulin Human Lispro (HUMALOG) 0 AC HS SUBQ Miscellaneous Information (VANCOMYCIN PHARMACY T O DOSE) 1 EACH ASDIR IV (CKD) Physical Exam General appearance: awake Neck: full range of motion, non-tender, normal thyroid, supple/no meningismus, no bruit/NL carotids, no JVD, no lymphadenopathy , no masses or swelling Cardiovascular: CV assessment: regular rate and rhythm Respiratory: clear to auscultation, no distress Abdomen: non-tender, normal bowel sounds , no distention, no guarding, no mass/ organomegaly, no pulsatile mass, no rebound Upper extremity: UE assessment: normal capillary refill, no ammy a Lower extremity: LE assessment: edema, normal capillary refill Considered stroke alert: yes Results Findings/Data: Laboratory Tests 03/31 03/30 03/30 0400 2053 1704 Chemistry Sodium (134 - 147 mEq/L) 141 Potassium (3.4 - 5.0 mEq/L) 4.1 Chloride (100 - 108 mEq/L) 107 Carbon Dioxide (21 - 33 mEq/l) 22 Anion Gap (0 - 20) 16 BUN (7 - 18 mg/dL) 9 Creatinine (0.6 - 1.3 mg/dL) 0.9 Glomerular Filtr Rate (70 - 80) 60.2 L Glucose (70 - 110 mg/dL) 72 POC Glucose (70 - 110 MG/DL) 103 95 Calcium (8.0 - 10.5 mg/dL) 8.1 Magnesium (1.80 - 2.40 mg/dL) 1.92 Laboratory Tests 03/31 0945 Hematology WBC (4.5 - 11.0 x10 3/uL) 9.2 RBC (3.54 - 5.02 x10 6/uL) 4.03 Hgb (11.0 - 15.0 g/dL) 11.2 Hct (33.0 - 45.0 %) 35.1 MCV (81.0 - 99.0 fL) 87.1 MCH (27.0 - 33.0 pg) 27.8 MCHC (33.0 - 37.0 g/dL) 31.9 L RDW (11.5 - 14.5 %) 16.2 H Plt Count (150 - 400 x10 3/uL) 485 H MPV (7.0 - 9.0 fL) 9.8 H Neut % (Auto) (56.0 - 77.0 %) 68.0 Lymph % (Auto) (14.0 - 32.0 %) 24.1 Phelps % (Auto) (4.8 - 9.0 %) 5.8 Eos % (Auto) (0.3 - 3.7 %) 0.9 Baso % (Auto) (0.0 - 2.0 %) 0.7 Neut # (Auto) (2.0 - 7.6 x10 3/uL) 6.26 Lymph # (Auto) (1.0 - 3.8 x10 3/uL) 2.22 Phelps # (Auto) (0.1 - 0.8 x10 3/uL) 0.53 Eos # (Auto) (0.0 - 0.2 x10 3/uL) 0.08 Baso # (Auto) (0.0 - 0.2 x10 3/uL) 0.06 Abs Immat Gran (auto) (0.00 - 0.03 x10 3/uL) 0. 05 H Add Manual Diff NO Immature Gran % (0.0 - 2.0 %) 0.5 Nucleated RBC % (0 - 0 %) 0.2 H Nucleated RBCs # (Man) (0.0 - 0.1 x10 3/uL) 0.0 2 Laboratory Tests 03/31 0400 Chemistry Magnesium (1.80 - 2.40 mg/dL) 1.92 Diagnosis, Assessment Plan Problem List/A P: 1. MRSA bacteremia 2. Sepsis 3. Lactic acidosis 4. Infective endocarditis of pulmonary valve Consultants: cardiology, critical/intens ivist, hospitalist, infectious disease Free Text DxA P Notes Free Text DxA P Notes: 03/24 awake, stable BP , IGLESIA showed veg on pulm valve, ID was informed. IV abx. 03/25 doing well, stable, on IV abx, high BP will star t med, ok to go to tele. 03/26 awake, doing ok, had TIA yes terday, CT was ok, will get echo with bubble study, on IV abx. 03/27 resting, confusion and dementia worse, r estart meds, ok to go to tele, cont IV abx, no PFO on echo, EF is better. 03/28 doing much better today, awake, stable cardiac w ise, on IV abx, in NSR, cont same tx. 03/29 stable, doing ok, awake, no new issues, on IV ab x, going to floor. 03/30 doing ok, stable, no new events, BP is better no w on JAY, give her a dose of lasix for the edema. 03/31 doing well this am, awake, stable on abx , no edema post lasix, cont same care. Electronically Signed by Sherry Gonsales MD on 0 03/31/22 at 1236 [facility] #:[id number] END OF REPORT 2022-03-31 11:40:00-00:00 [facility] Hospitalist Progress Note REPORT#:[id number] REPORT STATUS: Signed DATE:03/31/22 TIME: 1140 PATIENT: MICHAELA MATIAS UNIT #: [id number] ROOM/BED: [place] [address] : 41 AGE: 81 SEX: F ATTEND: Trevon Kimball MD ADM AUTHOR: Trevon Kimball MD * ALL edits or amendments must be made on the [employer]/computer document * Subjective Chief complaint: sleepy. arousable. eating some. no major c/o. no cp. no sob. Objective General VS/I O: Vital Signs: Date Time Temp Pulse Resp B/P B/P Pulse O2 O2 F low FiO2 Mean Ox Delivery Rate 03/31 1030 97.3 63 16 123/54 77.1 95 Room air 03/31 0652 97.9 62 16 136/62 86.7 95 03/31 0423 97.5 60 16 184/74 0.0 96 Room air 03/30 2243 98.1 60 15 159/57 91.0 95 Room air 03/30 2100 62 8 175/76 109 96 03/30 2000 58 15 147/67 96 96 03/30 1800 57 16 111/55 79 96 03/30 1700 57 26 151/67 96 97 Room air 03/30 1700 57 26 151/67 96 97 03/30 1600 97.7 56 18 155/68 98 97 Room air 03/30 1600 56 18 155/68 98 97 03/30 1501 65 / 1501 65 19 147/65 93 96 03/30 1400 56 19 166/72 103 95 03/30 1300 54 16 153/69 99 96 03/30 1200 97.5 55 17 145/66 95 96 Room air 03/30 1200 97.5 55 17 145/66 95 96 24 hour I O ending at 0700: 03/31 0700 03/30 1900 Intake Total 1106.23 Output Total 150 Balance 956.23 Intake, Free Water Intake, IV 153.23 Intake, Oral 953 Intake, Oral 0 Supplement Intake, Other Number 1 2 Bowel Movements Number 2 1 Incontinent Voids Output, Urine 150 Patient 48.3 kg Weight Weight Bed scale Measurement Method PATIENT WEIGHT: Weight (lb): 106 Weight (oz): 7.73 Weight (kg): 48.300 Physical Exam General appearance: awake Head/Eyes: atraumatic, normocephalic ENT: normal ear left, normal ear right, normal n ose Neck: full range of motion, no JVD Cardiovascular: normal heart sounds, regular rat e rhythm Respiratory: aerating well, clear to auscultatio n, symmetric expansion, no distress Abdomen: non-tender, normal bowel sounds, soft, no distention Extremities: no clubbing, no cyanosis, no edema 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, no sensory deficit s Considered stroke alert: yes Results Radiology data: Laboratory Tests 03/31/22 0945: [Embedded Image Not Available] 03/31/22 0400: [Embedded Image Not Available] Current Medications Sig/Kathy Start time Last Medication Dose Route Stop Time Status Admin Furosemide 40 MG ONCE ONE 03/30 1930 DC 03/30 IV 03/30 Carvedilol 3.125 MG C BK DIN 03/30 1700 AC 03/17 5 PO 04/29 1659 0902 Lisinopril 2.5 MG DAILY 03/30 1400 AC 03/31 PO 04/29 1359 0902 Ceftaroline Fosamil 400 MG Q8H 03/29 2000 AC 0 03/31 Sodium Chloride 100 ML IV 04/08 1155 0451 Memantine 10 MG DAILY 03/28 09 AC 03/31 PO 04/27 0859 09 Donepezil HCl 10 MG BEDTIME 03/27 2100 AC 03/30 PO 04/26 2059 203 Vancomycin HCl 500 MG Q24H 03/26 2300 AC 03/30 Sodium Chloride 100 ML IV 04/09 2259 2323 Metoprolol Tartrate 25 MG Q12HR 03/25 2100 DC 0 03/30 PO 04/24 205 0930 Acetaminophen 650 MG Q4H PRN PRN 03/25 1315 AC 03/25 RECTAL 04/24 1314 1323 Hydralazine HCl 10 MG Q6H PRN PRN 03/25 0930 AC 03/31 IV 04/24 0929 0503 Enoxaparin Sodium 30 MG Q24H 03/24 2300 AC 03/17 4 SUBQ 04/23 2259 2322 Calcium Gluconate/ 50 ML ASDIR PRN 03/24 0115 D C Sodium Chloride IV 04/23 0114 Calcium Gluconate/ 100 ML ASDIR PRN 03/24 011 DC Sodium Chloride IV 04/23 0114 Lactated Ringer's 1,000 ML BOLUS 03/24 011 AC 03/24 IV 04/23 0114 0119 Magnesium Sulfate 50 ML ASDIR PRN 03/24 0115 DC 03/25 IV 04/23 0114 0832 Potassium Chloride 100 ML ASDIR PRN 03/24 011 DC IV 04/23 0114 Potassium Chloride 20 MEQ ASDIR PRN 03/24 011 DC PO 04/23 0114 Potassium Chloride 40 MEQ ASDIR PRN 03/24 011 DC PO 04/23 011 Potassium Phosphate 15 MM ASDIR PRN 03/24 115 DC Sodium Chloride 100 ML IV 04/23 114 Potassium Phosphate 20 MM ASDIR PRN 03/24 115 DC Sodium Chloride 250 ML IV 04/23 114 Potassium Phosphate 30 MM ASDIR PRN 03/24 115 DC Sodium Chloride 250 ML IV 04/23 114 Sodium Phosphate 15 MMOL ASDIR PRN 03/24 115 D C Sodium Chloride 100 ML IV 04/23 114 Sodium Phosphate 20 MMOL ASDIR PRN 03/24 115 D C Sodium Chloride 250 ML IV 04/23 114 Sodium Phosphate 30 MMOL ASDIR PRN 03/24 115 D C Sodium Chloride 250 ML IV 04/23 114 Acetaminophen 650 MG Q4H PRN PRN 03/23 2115 AC 03/27 PO 04/22 Ondansetron HCl 4 MG Q4H PRN PRN 03/23 2115 AC IV 04/22 2114 Dextrose/Water 25 ML ASDIR PRN 03/23 2100 CKD IV 04/22 2059 Dextrose/Water 50 ML ASDIR PRN 03/23 2100 CKD IV 04/22 2059 Glucagon 1 MG ASDIR PRN 03/23 2100 AC IM 04/22 2059 Insulin Human Lispro 0 AC HS 03/23 2100 AC SUBQ 04/22 2059 Miscellaneous 1 EACH ASDIR 03/23 2100 CKD Information IV 04/22 2059 Laboratory Tests: 03/31 03/31 03/30 03/30 03/30 0945 0400 3 1704 1154 Chemistry Sodium (134 - 147 mEq/L) 141 Potassium (3.4 - 5.0 mEq/L) 4.1 Chloride (100 - 108 mEq/L) 107 Carbon Dioxide (21 - 33 mEq/l) 22 Anion Gap (0 - 20) 16 BUN (7 - 18 mg/dL) 9 Creatinine (0.6 - 1.3 mg/dL) 0.9 Glomerular Filtr Rate (70 - 80) 60.2 L Glucose (70 - 110 mg/dL) 72 POC Glucose (70 - 110 MG/DL) 103 95 95 Calcium (8.0 - 10.5 mg/dL) 8.1 Magnesium (1.80 - 2.40 mg/dL) 1.92 Hematology WBC (4.5 - 11.0 x10 3/uL) 9.2 RBC (3.54 - 5.02 x10 6/uL) 4.03 Hgb (11.0 - 15.0 g/dL) 11.2 Hct (33.0 - 45.0 %) 35.1 MCV (81.0 - 99.0 fL) 87.1 MCH (27.0 - 33.0 pg) 27.8 MCHC (33.0 - 37.0 g/dL) 31.9 L RDW (11.5 - 14.5 %) 16.2 H Plt Count (150 - 400 x10 3/uL) 485 H MPV (7.0 - 9.0 fL) 9.8 H Neut % (Auto) (56.0 - 77.0 %) 68.0 Lymph % (Auto) (14.0 - 32.0 %) 24.1 Phelps % (Auto) (4.8 - 9.0 %) 5.8 Eos % (Auto) (0.3 - 3.7 %) 0.9 Baso % (Auto) (0.0 - 2.0 %) 0.7 Neut # (Auto) (2.0 - 7.6 x10 3/uL) 6.26 Lymph # (Auto) (1.0 - 3.8 x10 3/uL) 2.22 Phelps # (Auto) (0.1 - 0.8 x10 3/uL) 0.53 Eos # (Auto) (0.0 - 0.2 x10 3/uL) 0.08 Baso # (Auto) (0.0 - 0.2 x10 3/uL) 0.06 Abs Immat Gran (auto) (0.00 - 0.03 0.05 H x10 3/uL) Add Manual Diff NO Immature Gran % (0.0 - 2.0 %) 0.5 Nucleated RBC % (0 - 0 %) 0.2 H Nucleated RBCs # (Man) (0.0 - 0.1 0.02 x10 3/uL) 03/30 1154 Chemistry POC Glucose (70 - 110 MG/DL) 98 Diagnosis, Assessment Plan Consultants: cardiology, critical/intens ivist, hospitalist, infectious disease Free Text DxA P Notes Free text DxA P notes: 81 y/o with dementia/HTN/CAD/CHF/aortic regurge/CKD -stage III/DM who presents with persistent bacteremia (presumed MRSA) causi ng sepsis Infective endocarditis Recurrent gram positive bacteremia -at [facility] she was on IV vancomycin IGLESIA showed vegetation in the pulmonary valve culture ....MRSA She will need PICC line after blood culture nega tideepali 03/28- last bld cx 07/18 still positive. 03/29- repeat bld cx to be dr pedraza today. once negative, picc line and then 6 [facility] 03/30- awiting ID clearance for PICC placement an d for LTACH transfer. bld cx negative 24 hours so far. 03/31- bld cx negative for 48 hours. picc today? then LTACH? Abonrmal CT chest 03/28- pleural effusion, mult iple nodules, ?pneumoina. ask pulmonary to evaluate. 03/29- need repeat CT chest to f/u on nodules. 03/30- need OUPT repeat CT chest for the nodules Delirium 03/28- MRI brain negative. neuro has signed off Poor po intake 03/28- ask nutrtion to see 03/30 - d/w and pt's daughter ( wa nts daughter to make any decisions). Daughter, Rosemary, does not want a do bhoff for feeding for now. Septic shock - Resolved patient had septic shock at [facility] req uiring pressors and pt was resussitated with IVF and albumin. Continue to monitor pressure CKD - follow electrolytes, UOP HTN - Per cardiology 03/30- Pt is bradycardic and BP is a bit high...w ill change lopressor to coreg and zestril. 03/31- controlled with zestril/coreg DVT prophylaxis Lovenox subcu 03/26: on physical exam today aphasia which is grewal dden , code stroke called, CT head, no bleeding, discussed with ICC and neuro. ,her symptoms improved (TIA?) discussed with grandughter (Rosemary), and the pat vito's . BC again growing MRSA, discussed with mónica Napoles ow on Teflaro and vanco neuro check, will keep in ICU 03/27: patient still not back to baseline, confus ed, MRI -ve for stroke, discussed with neuro, delirium? on Teflaro and v anc for Infective endocardititis. 03/28- awaiting transfer to t he floor. on IV vanc/teflaro. d/w family at bedside 03/29- awaiting transfer to [facility] floor. if repeat blx cx negative today, then PICC and 6 more weeks of IV abx at LTACH. d/w case jaime jarvis. 03/30- change BP meds to avoid bradycardi a. awaiting ID clearance for PICC line and then [facility] for 6 weeks o f IV abx for endocarditis...d/w family about dobhoff for feeding and they do NOT want d obhoff for now, since pt is eating a little. check labs in am. d/w bedside mónica mock. 03/31- transfered to the floor. awaiting PICC and then transfer to LTACH. Quality: Gen Med Crit Care VTE Prophylaxis VTE prophylaxis initiated: yes Current Medications Current medication review: I attest that the foregoing medication list in [facility] medical record is true, accurate, and complete to the best of my knowled ge. Advanced Care Plan 65 or Older Discussed with: surrogate decis. maker Discussion included: code status Electronically Signed by Trevon Kimball MD on 03/17 12/05 at 1142 RPT #:[id number] END OF REPORT 2022-03-31 11:01:00-00:00 [facility] Pharmacy Prog.Note-Vancomycin REPORT#:[id number] REPORT STATUS: Signed DATE:03/31/22 TIME: 1101 PATIENT: MICHAELA MATIAS UNIT #: [id number] ROOM/BED: [place] [address] : 41 AGE: 81 SEX: F ATTEND: Trevon Kimball MD ADM AUTHOR: Satish Fajardo [facility] * ALL edits or amendments must be made on the el [employer]/computer document * Vancomycin Vancomycin Medication Therapy Goal: AUC 400-600 mcg*hr/mL Indication for treatment: Bacteremia Site of infection: known Weight: Actual weight (kg): 48.3 VS and I/O: Vital Signs Date Temp Pulse Resp B/P B/P Mean Pulse Ox FiO 2 03/28-03/31 36.3-36.7 54-66 8-35 111-184/54-77 0.0-111 93-98 72 hours ending at 0700 03/31 0700 03/30 1900 03/30 0700 03/29 1900 03/28 0700 1900 Intake 1106.23 433.58 200.00 600.00 Total Output 150 900 Total Balance 956.23 433.58 200.00 -300 Intake, Free Water Intake, IV 153.23 433.58 200.00 300.00 Intake, 953 300 Oral Intake, 0 Oral Supplement Intake, Other Number 1 2 1 0 Bowel Movements Number 2 1 2 1 Incontinen t Voids Output, 150 900 Urine Patient 48.3 kg Weight Weight Bed scale Measuremen t Method 72 Hour I O Total 03/31 0703/30 0700 03/29 0700 Intake Total 1106.23 433.58 800.00 Output Total 150 900 Balance 956.23 433.58 -100.00 Labs: Laboratory Test : 03/31 03/31 0945 0400 Chemistry BUN (7 - 18 mg/dL) 9 Creatinine (0.6 - 1.3 mg/dL) 0.9 Hematology WBC (4.5 - 11.0 x10 3/uL) 9.2 Microbiology: 03/29 930 BLOOD: Blood Culture - RES 03/29 930 BLOOD: Blood Culture - RES Drug admin history: Lab Lab Level SCr Info Store Custodian Med Dose Inter action/Dialysis Date/Time Date/Time Notes: Treatment plan: consult, cont current regimen/do se Rationale: HPI: Michaela Matias is an 81 yo female with PMH of vascular dementia, CAD, DM, HTN, HF, aortic regurgitation, CKD stage III who pres ented to OSH with chest pain, found to have MRSA bacteremia. Patient h ypotensive requiring vasopressors, was admitted to ICU. Pharmacy is consulted to dose v ancomycin. Requesting Provider: Trevon Kimball MD Indication: Bacteremia Vancomycin AUC Goal: 400-600 mcg*hr/mL Concomitant Antibiotics: -Ceftaroline 400 mg IV q8h 03/31 A/P: Labs and Vitals: WBC 9.2 Afebrile over the past 24 hours Renal Function: BUN/SCr 9/0.9 (relatively stable) Urine Output with 150 mL of UOP and 3 incontine nt voids document over the past 24 hours Estimated CrCl 38 mL/min (using actual body svitlana ght) Microbiology: 03/29 Blood Cx x2: [id number] 9/12 Blood Cx x2: Ordered 03/26 Blood Cx x2: 1/4 MRSA 03/24 Blood Cx x2: 2/4 MRSA 03/23 Blood Cx x2: 3/ MRSA (vanc VALENTINA=1) 03/23 MRSA nasal screen: Negative Imagin/8 IGLESIA: Vegetation on pulmonic valve about 1.1 cm Dosing and Monitoring: -Patient is currently on a vancomycin maintenan ce regimen of 500 mg q24h -AUC on 03/30 was 421 mcg*hr/ml, therapeutic. -Continue regimen, repeat trough in 3-4 days if clinically stable. Pharmacy will continue to monitor Electronically Signed by Satish Fajardo [facility] on 03/31 at 1105 RPT #:[id number] END OF REPORT 2022-03-30 19:22:00-00:00 [facility]) Cardiology Progress Note REPORT#:[id number] REPORT STATUS: Signed DATE:03/30/22 TIME: 1921 PATIENT: MICHAELA MATIAS UNIT #: [id number] ROOM/BED: [address] : 41 AGE: 81 SEX: F ATTEND: Trevon Kimball MD ADM AUTHOR: Sherry Gonsales MD * ALL edits or amendments must be made on the [employer]/computer document * Objective General VS/I O: 24 hour I O ending at 0700: 03/30 0700 03/29 1900 Intake Total 433.58 Output Total Balance 433.58 Intake, IV 433.58 Vital Signs: Date Time Temp Pulse Resp B/P B/P Pulse O2 O2 F low FiO2 Mean Ox Delivery Rate 03/30 1800 57 16 111/55 79 96 03/30 1700 57 26 151/67 96 97 Room air 03/30 1700 57 26 151/67 96 97 03/30 1600 36.5 56 18 155/68 98 97 Room air 03/30 1600 56 18 155/68 98 97 03/30 1501 65 03/30 1501 65 19 147/65 93 96 03/30 1400 56 19 166/72 103 95 03/30 1300 54 16 153/69 99 96 03/30 1200 36.4 55 17 145/66 95 96 Room air 03/30 1200 36.4 55 17 145/66 95 96 03/30 1100 58 16 115/55 79 95 Room air 03/30 1100 58 16 115/55 79 95 /14 1000 60 19 154/69 99 95 03/30 0915 59 19 165/72 104 95 Room air 03/30 0915 59 19 165/72 104 95 03/30 0900 63 19 182/76 109 94 Room air 03/30 0900 63 19 182/76 109 94 0 03/30 0801 36.4 55 20 139/64 92 96 03/30 0800 36.4 55 20 139/64 92 96 Room air 03/30 0700 57 18 144/67 96 96 03/30 0445 36.7 19 121/69 86 96 03/30 0100 131/60 83 03/30 0043 95 Room air 03/30 0020 171/72 105 95 03/29 2345 36.7 59 19 161/72 101 95 PATIENT WEIGHT: Weight (lb): 106 Weight (oz): 7.73 Weight (kg): 48.300 Medications: Active Meds + DC'd Last 24 Hrs Carvedilol (COREG) 3.125 MG C BK DIN PO Lisinopril (ZESTRIL) 2.5 MG DAILY PO Ceftaroline Fosamil (TEFLARO) 400 MG Q8H IV Sodium Chloride (SODIUM CHLORIDE 0.9%) 100 ML Memantine (NAMENDA) 10 MG DAILY PO Donepezil HCl (ARICEPT) 10 MG BEDTIME PO Vancomycin HCl (VANCOMYCIN HCL) 500 MG Q24H IV Sodium Chloride (SODIUM CHLORIDE 0.9% 100 ML) 1 00 ML Metoprolol Tartrate (LOPRESSOR) 25 MG Q12HR PO ( DC) Acetaminophen (TYLENOL) 650 MG Q4H PRN PRN RECTA L Hydralazine HCl (APRESOLINE) 10 MG Q6H PRN PRN I V Enoxaparin Sodium (lovENOX) 30 MG Q24H SUBQ Calcium Gluconate/Sodium Chloride (Calcium Gluco alexia 1 GM/NS 50 mL) 50 ML ASDIR PRN IV (DC) Calcium Gluconate/Sodium Chloride (Calcium Gluco alexia 2 GM/NS 100 mL) 100 ML ASDIR PRN IV (DC) Lactated Ringer's (LACTATED RINGERS) 1,000 ML GILLIAN MARTY IV Magnesium Sulfate (MAGNESIUM SULFATE 2GM/SWFI 50 ML) 50 ML ASDIR PRN IV ( DC) Potassium Chloride (KCL 20MEQ/SWFI 100ML) 100 ML ASDIR PRN IV (DC) Potassium Chloride (POTASSIUM CHLORIDE 20MEQ TAB .ER) 20 MEQ ASDIR PRN PO (DC) Potassium Chloride (POTASSIUM CHLORIDE 20MEQ TAB .ER) 40 MEQ ASDIR PRN PO (DC) Potassium Phosphate (POTASSIUM PHOSPHATE) 15 MM ASDIR PRN IV (DC) Sodium Chloride (SODIUM CHLORIDE 0.9%) 100 ML Potassium Phosphate (POTASSIUM PHOSPHATE) 20 MM ASDIR PRN IV (DC) Sodium Chloride (SODIUM CHLORIDE 0.9%) 250 ML Potassium Phosphate (POTASSIUM PHOSPHATE) 30 MM ASDIR PRN IV (DC) Sodium Chloride (SODIUM CHLORIDE 0.9%) 250 ML Sodium Phosphate (SODIUM PHOSPHATE) 15 MMOL ASDI R PRN IV (DC) Sodium Chloride (SODIUM CHLORIDE 0.9%) 100 ML Sodium Phosphate (SODIUM PHOSPHATE) 20 MMOL ASDI R PRN IV (DC) Sodium Chloride (SODIUM CHLORIDE 0.9%) 250 ML Sodium Phosphate (SODIUM PHOSPHATE) 30 MMOL ASDI R PRN IV (DC) Sodium Chloride (SODIUM CHLORIDE 0.9%) 250 ML Acetaminophen (TYLENOL) 650 MG Q4H PRN PRN PO Ondansetron HCl (ZOFRAN) 4 MG Q4H PRN PRN IV Dextrose/Water (DEXTROSE 50% W SYRINGE) 25 ML DIR PRN IV (CKD) Dextrose/Water (DEXTROSE 50% W SYRINGE) 50 ML DIR PRN IV (CKD) Glucagon (GLUCAGON) 1 MG ASDIR PRN IM Insulin Human Lispro (HUMALOG) 0 AC HS SUBQ Miscellaneous Information (VANCOMYCIN PHARMACY T O DOSE) 1 EACH ASDIR IV (CKD) Physical Exam General appearance: awake Neck: full range of motion, non-tender, normal thyroid, supple/no meningismus, no bruit/NL carotids, no JVD, no lymphadenopathy , no masses or swelling Cardiovascular: CV assessment: regular rate and rhythm Respiratory: clear to auscultation, no distress Abdomen: non-tender, normal bowel sounds , no distention, no guarding, no mass/ organomegaly, no pulsatile mass, no rebound Upper extremity: UE assessment: normal capillary refill, no ammy a Lower extremity: LE assessment: edema, normal capillary refill Considered stroke alert: yes Results Findings/Data: Laboratory Tests 03/30 03/30 03/30 03/30 03/29 1704 1154 1154 0926 2044 Chemistry POC Glucose (70 - 110 MG/DL) 95 95 98 85 92 Laboratory Tests 03/29 2230 Toxicology Vancomycin Trough (10.0 - 20.0 mcg/mL) 12.4 Diagnosis, Assessment Plan Problem List/A P: 1. MRSA bacteremia 2. Sepsis 3. Lactic acidosis 4. Infective endocarditis of pulmonary valve Consultants: cardiology, critical/intens ivist, hospitalist, infectious disease Free Text DxA P Notes Free Text DxA P Notes: 03/24 awake, stable BP , IGLESIA showed veg on pulm valve, ID was informed. IV abx. 03/25 doing well, stable, on IV abx, high BP will star t med, ok to go to tele. 03/26 awake, doing ok, had TIA yes terday, CT was ok, will get echo with bubble study, on IV abx. 03/27 resting, confusion and dementia worse, r estart meds, ok to go to tele, cont IV abx, no PFO on echo, EF is better. 03/28 doing much better today, awake, stable cardiac w ise, on IV abx, in NSR, cont same tx. 03/29 stable, doing ok, awake, no new issues, on IV ab x, going to floor. 03/30 doing ok, stable, no new events, BP is better no w on JAY, give her a dose of lasix for the edema. Electronically Signed by Sherry Gonsales MD on 0 03/30/22 at 1924 [facility] #:[id number] END OF REPORT 2022-03-30 13:53:00-00:00 [facility] Hospitalist Progress Note REPORT#:[id number] REPORT STATUS: Signed DATE:03/30/22 TIME: 1353 PATIENT: MICHAELA MATIAS UNIT #: [id number] ROOM/BED: [place] [address] : 41 AGE: 81 SEX: F ATTEND: Trevon Kimball MD ADM AUTHOR: Trevon Kimball MD * ALL edits or amendments must be made on the [employer] document * Subjective Chief complaint: not eating too much. sleeping comfortably. no cp no sob. no bleeding. Objective General VS/I O: Vital Signs: Date Time Temp Pulse Resp B/P B/P Pulse O2 O2 F low FiO2 Mean Ox Delivery Rate 03/30 1300 54 16 153/69 99 96 03/30 1200 97.5 55 17 145/66 95 96 03/30 1100 58 16 115/55 79 95 03/30 1000 60 19 154/69 99 95 03/30 0915 59 19 165/72 104 95 03/30 0900 63 19 182/76 109 94 0 03/30 0801 97.6 55 20 139/64 92 96 03/30 0700 57 18 144/67 96 96 03/30 0445 98.0 19 121/69 86 96 03/30 0100 131/60 83 03/30 0043 95 Room air 03/30 0020 171/72 105 95 03/29 2345 98.0 59 19 161/72 101 95 03/29 1800 61 27 143/60 87 95 03/29 1700 62 25 143/65 94 95 03/29 1600 97.9 03/29 1600 65 19 154/70 101 95 03/29 1501 63 24 170/72 103 97 03/29 1401 60 25 135/65 93 95 24 hour I O ending at 0700: 03/30 0700 03/29 1900 Intake Total 433.58 Output Total Balance 433.58 Intake, IV 433.58 PATIENT WEIGHT: Weight (lb): 114 Weight (oz): 10.25 Weight (kg): 51.71 Physical Exam General appearance: alert, awake Head/Eyes: atraumatic, normocephalic ENT: normal ear left, normal ear right, normal n ose Neck: full range of motion, no JVD Cardiovascular: normal heart sounds, regular rat e rhythm Respiratory: aerating well, clear to auscultatio n, symmetric expansion, no distress Abdomen: non-tender, normal bowel sounds, soft, no distention Extremities: no clubbing, no cyanosis, no edema 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, no sensory deficit s Considered stroke alert: yes Results Radiology data: Laboratory Tests 03/29/22 0515: [Embedded Image Not Available] Current Medications Sig/Kathy Start time Last Medication Dose Route Stop Time Status Admin Carvedilol 3.125 MG C BK DIN 03/30 1700 UNV PO 04/29 1659 Lisinopril 2.5 MG DAILY 03/30 1400 UNVr PO 04/29 1359 Ceftaroline Fosamil 400 MG Q8H 03/29 2000 AC Sodium Chloride 100 ML IV 04/08 1155 1255 Memantine 10 MG DAILY 03/28 09 AC 03/30 PO 04/27 0859 0936 Donepezil HCl 10 MG BEDTIME 03/27 2100 AC 03/29 PO 04/265 Vancomycin HCl 500 MG Q24H 03/26 2300 AC 03/29 Sodium Chloride 100 ML IV 04/09 2259 2319 Ceftaroline Fosamil 600 MG Q12H 03/26 1200 DC 0 03/29 Sodium Chloride 100 ML IV 04/08 1159 1300 Metoprolol Tartrate 25 MG Q12HR 03/25 2100 DCr 03/30 PO 04/2430 Acetaminophen 650 MG Q4H PRN PRN 03/25 1315 AC 03/25 RECTAL 04/24 1314 1323 Hydralazine HCl 10 MG Q6H PRN PRN 03/25 0930 r 03/30 IV 04/24 0929 0025 Enoxaparin Sodium 30 MG Q24H 03/24 230 AC 03/17 3 SUBQ 04/23 2259 2320 Calcium Gluconate/ 50 ML ASDIR PRN 03/24 0115 D C Sodium Chloride IV 04/23 0114 Calcium Gluconate/ 100 ML ASDIR PRN 03/24 011 DC Sodium Chloride IV 04/23 0114 Lactated Ringer's 1,000 ML BOLUS 03/24 0115 AC 03/24 IV 04/23 0114 0119 Magnesium Sulfate 50 ML ASDIR PRN 03/24 0115 DC 03/25 IV 04/23 0114 0832 Potassium Chloride 100 ML ASDIR PRN 03/24 011 DC IV 04/23 0114 Potassium Chloride 20 MEQ ASDIR PRN 03/24 011 DC PO 04/23 0114 Potassium Chloride 40 MEQ ASDIR PRN 03/24 011 DC PO 04/23 0114 Potassium Phosphate 15 MM ASDIR PRN 03/24 0115 DC Sodium Chloride 100 ML IV 04/23 0114 Potassium Phosphate 20 MM ASDIR PRN 03/24 115 DC Sodium Chloride 250 ML IV 04/23 114 Potassium Phosphate 30 MM ASDIR PRN 03/24 115 DC Sodium Chloride 250 ML IV 04/23 114 Sodium Phosphate 15 MMOL ASDIR PRN 03/24 115 D C Sodium Chloride 100 ML IV 04/23 114 Sodium Phosphate 20 MMOL ASDIR PRN 03/24 115 D C Sodium Chloride 250 ML IV 04/23 114 Sodium Phosphate 30 MMOL ASDIR PRN 03/24 115 D C Sodium Chloride 250 ML IV 04/23 114 Acetaminophen 650 MG Q4H PRN PRN 03/23 2115 AC 03/27 PO 04/22 2114 2335 Ondansetron HCl 4 MG Q4H PRN PRN 03/23 2115 AC IV 04/22 2114 Dextrose/Water 25 ML ASDIR PRN 03/23 2100 CKD IV 04/22 2059 Dextrose/Water 50 ML ASDIR PRN 03/23 2100 CKD IV 04/22 2059 Glucagon 1 MG ASDIR PRN 03/23 2100 AC IM 04/22 2059 Insulin Human Lispro 0 AC HS 03/23 2100 AC SUBQ 04/22 2059 Miscellaneous 1 EACH ASDIR 03/23 2100 CKD Information IV 04/22 2059 Laboratory Tests: 03/30 03/30 03/30 03/29 03/29 1154 1154 0926 2230 4 Chemistry POC Glucose (70 - 110 MG/DL) 95 98 85 92 Toxicology Vancomycin Trough (10.0 - 20.0 mcg/mL) 12.4 Diagnosis, Assessment Plan Consultants: cardiology, critical/intens ivist, hospitalist, infectious disease Free Text DxA P Notes Free text DxA P notes: 81 y/o with dementia/HTN/CAD/CHF/aortic regurge/CKD -stage III/DM who presents with persistent bacteremia (presumed MRSA) causi ng sepsis Infective endocarditis Recurrent gram positive bacteremia -at [facility] she was on IV vancomycin IGLESIA showed vegetation in the pulmonary valve culture ....MRSA She will need PICC line after blood culture nega tive 03/28- last bld cx 07/18 still positive. 03/29- repeat bld cx to be dr pedraza today. once negative, picc line and then 6 weeks of IV abx at [facility]. 03/30- awiting ID clearance for PICC placement an d for LTACH transfer. bld cx negative [address] so [address]. [address] chest 03/28- pleural effusion, mult iple nodules, ?pneumoina. ask pulmonary to evaluate. 03/29- need repeat CT chest to f/u on nodules. 03/30- need OUPT repeat CT chest for the nodules Delirium 03/28- MRI brain negative. neuro has signed off Poor po intake 03/28- ask nutrtion to see 03/30 - d/w and pt's daughter ( wa nts daughter to make any decisions). Daughter, Rosemary, does not want a do bhoff for feeding for now. Septic shock - Resolved patient had septic shock at [place] ER req uiring pressors and pt was resussitated with IVF and albumin. Continue to monitor pressure CKD - follow electrolytes, UOP HTN - Per cardiology 03/30- Pt is bradycardic and BP is a bit high...w ill change lopressor to coreg and zestril. DVT prophylaxis Lovenox subcu 03/26: on physical exam today aphasia which is grewal dden , code stroke called, CT head, no bleeding, discussed with ICC and neuro. ,her symptoms improved (TIA?) discussed with grandughter (Rosemary), and the pat vito's . BC again growing MRSA, discussed with Dr Lombardo, mónica valero on Teflaro and vanco neuro check, will keep in ICU 03/27: patient still not back to baseline, confus ed, MRI -ve for stroke, discussed with neuro, delirium? on Teflaro and v anc for Infective endocardititis. 03/28- awaiting transfer to t he floor. on IV vanc/teflaro. d/w family at bedside 03/29- awaiting transfer to t he floor. if repeat blx cx negative today, then PICC and 6 more weeks of IV abx at LTACH. d/w case jaime jarvis. 03/30- change BP meds to avoid bradycardi a. awaiting ID clearance for PICC line and then transfer to LTACH for 6 weeks o f IV abx for endocarditis...d/w family about dobhoff for feeding and they do NOT want d obhoff for now, since pt is eating a little. check labs in am. d/w bedside mónica mock. Quality: Gen Med Crit Care VTE Prophylaxis VTE prophylaxis initiated: yes Current Medications Current medication review: I attest that the foregoing medication list in t medical record is true, accurate, and complete to the best of my knowled ge. Advanced Care Plan 65 or Older Discussed with: surrogate decis. maker Discussion included: code status Electronically Signed by Trevon Kimball MD on 03/17 11/05 at 1358 RPT #:[id number] END OF REPORT 2022-03-30 10:48:00-00:00 [facility] ([facility]) Infectious Dis. Progress Note REPORT#:[id number] REPORT STATUS: Signed DATE:03/30/22 TIME: 1048 PATIENT: MICHAELA MATIAS UNIT #: [id number] ROOM/BED: [place] [address] : 41 AGE: 81 SEX: F ATTEND: Trevon Kimball MD ADM AUTHOR: Liban Lombardo MD * ALL edits or amendments must be made on the el [employer]/computer document * Subjective Chief complaint: recurrent bacteremia HPI: History is obtained from the records the patient is a poor historian. This is an 81-year-old white female patient with history of type 2 diabetes, hypertension and chronic kid lizabeth disease who was admitted to an outside hospital in [place] with chest pain and elevated tro ponins. At that time the family decl ined cardiac cath and the patient was discharged and then readmitted because of positive blood cultur es for MRSA. The patient was sent home on IV antibiotics and received 2 weeks of therapy presumably vancomycin. She then re presented to [facility] ER room with sepsis and the blood cultures were again positive for the same organi sm. She was then transferred to [facility]. Today she had a IGLESIA and it shows a pulmonary eral ve vegetation. Repeat blood cultures are pending Patient has been started on vancomycin and cefep hazel Patient reports: No: abdominal pain, back pain, bowel movement, f ever, headache, nausea, pain, shortness of breath, vomiting. Objective Physical Exam Head/Eyes: atraumatic, clear cornea ENT: moist mucosal membranes, normal dentition Neck: full range of motion, non-tender Cardiovascular: normal heart sounds, regular rat e rhythm Respiratory: clear to auscultation, aerating wel l Abdomen: non-tender, normal bowel sounds Extremities: moves all, normal capillary refill Musculoskeletal: normal inspection, no joint swe lling Considered stroke alert: yes Results Findings/Data: Microbiology: 03/29 930 BLOOD: Blood Culture - RES 03/29 930 BLOOD: Blood Culture - RES 03/28 955 BLOOD: Blood Culture - ORD 03/28 955 BLOOD: Blood Culture - ORD Hematology: 03/29 Hematology WBC (4.5 - 11.0 x10 3/uL) 8.6 9.4 Chemistry: 03/29 Chemistry Creatinine (0.6 - 1.3 mg/dL) 0.8 0.8 Home Medications: Medication Dose/Rte/Freq Days Qty Entered Last Max Daily Dose Reviewed CARVEDILOL (COREG) 3.125 MG PO ONCE 03/23/22 Strength: 3.125 MG TAB [id number] LISINOPRIL (ZESTRIL) 2.5 MG PO DAILY 03/23/22 0 03/23/22 Strength: 2.5 MG TAB [id number] ROSUVASTATIN (CRESTOR) 40 MG PO DAILY 03/23/22 03/23/22 Strength: 40 MG TAB [id number] FLUoxetine (PROzac) 20 MG PO DAILY 03/23/2202/04 Strength: 20 MG CAP 2233 2237 OMEPRAZOLE ER 20 MG PO DAILY 03/23/22 03/23/22 Strength: 20 MG CAP. 2233 2237 OXYBUTYNIN (DITROPAN) 5 MG PO ONCE 03/23/2202/04 Strength: 5 MG TAB [id number] MEMANTINE (NAMENDA) 10 MG PO DAILY 03/23/2202/04 Strength: 10 MG TAB [id number] MEMANTINE (NAMENDA) 10 MG PO DAILY 03/23/2202/04 Strength: 10 MG TAB [id number] Current Hospital Medications: Anti-Infective Agents Sig/Kathy Start time Last Medication Dose Route Stop Time Status Admin Ceftaroline Fosamil 400 MG Q8H 03/29 2000 AC (TEFLARO) IV 04/08 1155 0458 Sodium Chloride 100 ML (SODIUM CHLORIDE 0.9%) Vancomycin HCl 500 MG Q24H 03/26 2300 AC 03/29 (VANCOMYCIN HCL) IV 04/09 2259 2319 Sodium Chloride 100 ML (SODIUM CHLORIDE 0.9% 100 ML) Ceftaroline Fosamil 600 MG Q12H 03/26 1200 DC 0 03/29 (TEFLARO) IV 04/08 1159 1300 Sodium Chloride 100 ML (SODIUM CHLORIDE 0.9%) Miscellaneous 1 EACH ASDIR 03/23 2100 CKD Information IV 04/22 2059 (VANCOMYCIN PHARMACY TO DOSE) Autonomic Drugs Sig/Kathy Start time Last Medication Dose Route Stop Time Status Admin Donepezil HCl 10 MG BEDTIME 03/27 2100 AC 03/29 (ARICEPT) PO 04/26 Blood Formation,Coagulation Sig/Kathy Start time Last Medication Dose Route Stop Time Status Admin Enoxaparin Sodium 30 MG Q24H 03/24 2300 AC 03/17 3 (lovENOX) SUBQ 04/23 225 2320 Cardiovascular Drugs Sig/Kathy Start time Last Medication Dose Route Stop Time Status Admin Metoprolol Tartrate 25 MG Q12HR 03/25 2100 AC 0 03/30 (LOPRESSOR) PO 04/2430 Hydralazine HCl 10 MG Q6H PRN PRN 03/25 0930 AC 03/30 (APRESOLINE) IV 04/24 0929 0025 Central Nervous System Agents Sig/Kathy Start time Last Medication Dose Route Stop Time Status Admin Memantine 10 MG DAILY 03/28 09 AC 03/30 (NAMENDA) PO 04/27 0859 0936 Acetaminophen 650 MG Q4H PRN PRN 03/25 1315 AC 03/25 (TYLENOL) RECTAL 04/24 1314 1323 Magnesium Sulfate 50 ML ASDIR PRN 03/24 011 AC 03/25 (MAGNESIUM SULFATE IV 04/23 011 0832 2GM/SWFI 50ML) Acetaminophen 650 MG Q4H PRN PRN 03/23 2115 AC 03/27 (TYLENOL) PO 04/22 2114 2335 Electrolytic, Caloric, And Alan Sig/Kathy Start time Last Medication Dose Route Stop Time Status Admin Calcium Gluconate/ 50 ML ASDIR PRN 03/24 011 A C Sodium Chloride IV 04/23 114 (Calcium Gluconate 1 GM/NS 50 mL) Calcium Gluconate/ 100 ML ASDIR PRN 03/24 115 AC Sodium Chloride IV 04/23 114 (Calcium Gluconate 2 GM/NS 100 mL) Lactated Ringer's 1,000 ML BOLUS 03/24 115 AC 03/24 (LACTATED RINGERS) IV 04/23 Potassium Chloride 100 ML ASDIR PRN 03/24 115 AC (KCL 20MEQ/SWFI IV 04/23 114 100ML) Potassium Chloride 20 MEQ ASDIR PRN 03/24 115 AC (POTASSIUM CHLORIDE PO 04/23 114 20MEQ TAB.ER) Potassium Chloride 40 MEQ ASDIR PRN 03/24 115 AC (POTASSIUM CHLORIDE PO 04/23 114 20MEQ TAB.ER) Potassium Phosphate 15 MM ASDIR PRN 03/24 115 AC (POTASSIUM PHOSPHATE) IV 04/23 114 Sodium Chloride 100 ML (SODIUM CHLORIDE 0.9%) Potassium Phosphate 20 MM ASDIR PRN 03/24 115 AC (POTASSIUM PHOSPHATE) IV 04/23 114 Sodium Chloride 250 ML (SODIUM CHLORIDE 0.9%) Potassium Phosphate 30 MM ASDIR PRN 03/24 115 AC (POTASSIUM PHOSPHATE) IV 04/23 114 Sodium Chloride 250 ML (SODIUM CHLORIDE 0.9%) Sodium Phosphate 15 MMOL ASDIR PRN 03/24 115 A C (SODIUM PHOSPHATE) IV 04/23 114 Sodium Chloride 100 ML (SODIUM CHLORIDE 0.9%) Sodium Phosphate 20 MMOL ASDIR PRN 03/24 115 A C (SODIUM PHOSPHATE) IV 04/23 114 Sodium Chloride 250 ML (SODIUM CHLORIDE 0.9%) Sodium Phosphate 30 MMOL ASDIR PRN 03/24 115 A C (SODIUM PHOSPHATE) IV 04/23 114 Sodium Chloride 250 ML (SODIUM CHLORIDE 0.9%) Dextrose/Water 25 ML ASDIR PRN 03/23 2100 CKD (DEXTROSE 50% W IV 04/22 2059 SYRINGE) Dextrose/Water 50 ML ASDIR PRN 03/23 2100 CKD (DEXTROSE 50% W IV 04/22 2059 SYRINGE) Gastrointestinal Drugs Sig/Kathy Start time Last Medication Dose Route Stop Time Status Admin Ondansetron HCl 4 MG Q4H PRN PRN 03/23 2115 AC (ZOFRAN) IV 04/22 2114 Hormones And Synthetic Substit Sig/Kathy Start time Last Medication Dose Route Stop Time Status Admin Glucagon 1 MG ASDIR PRN 03/23 2100 AC (GLUCAGON) IM 04/22 2059 Insulin Human Lispro 0 AC HS 09/07 2100 AC (HUMALOG) SUBQ 04/22 2059 Microbiology: 03/29 09 BLOOD: Blood Culture - RES 03/26 0300 BLOOD: Blood Culture Gram Stain - COM P 03/23 1950 NASAL: MRSA DNA Surveillance Screen - COMP Laboratory Tests 03/30 Chemistry POC Glucose (70 - 110 MG/DL) 85 92 Laboratory Tests 03/29 223 Toxicology Vancomycin Trough (10.0 - 20.0 mcg/mL) 12.4 Diagnosis, Assessment Plan Problem List/A P: 1. MRSA bacteremia 2. Sepsis 3. Infective endocarditis of pulmonary valve Blood cultures are positive again with gram-pos itive cocci in clusters with susceptibilities pending we will continue the va ncomycin and add ceftaroline Primary source is uncertain as physical examination is unremarkable for nidus of infection Would continue vancomycin and add ceftaroline f or double coverage Repeat blood cultures until negative Contact isolation Patient has a right groin c atheter inserted while she is bacteremic which will have to be removed soon Ultimately she will need a PICC line and 4 week s of IV antibiotics as an outpatient 03/28 The patient continues to persistently positive for MRSA in the blood We will continue her dual therapy with vancomyc in and ceftaroline We will keep repeating blood cultures until neg ative I will extend IV antibiotics to 6 weeks after t he first negative culture Patient stable to go to the floor 03/29 Blood cultures have not been sent I will reorder them until negative Continue vancomycin and ceftaroline 03/30 Await 48 to 72 hours of negative blood cultures before placing a PICC line followed by 4 weeks of IV antibiotics with combi nation of vancomycin and ceftaroline As per the patient's granddaughter they are con sidering LTAC 4. CKD (chronic kidney disease) 5. DM2 (diabetes mellitus, type 2) Consultants: cardiology, critical/intens ivist, hospitalist, infectious disease Electronically Signed by Liban Lombardo MD on at 1051 RPT #:[id number] END OF REPORT 2022-03-30 09:08:00-00:00 [facility] ([facility]) Pulmonology Progress Note REPORT#:[id number] REPORT STATUS: Signed DATE:03/30/22 TIME: 907 PATIENT: MICHAELA MATIAS UNIT #: [id number] ROOM/BED: [address] : 41 AGE: 81 SEX: F ATTEND: Trevon Kimball MD ADM AUTHOR: Alida Westfall MD * ALL edits or amendments must be made on the el ectronic/computer document * Review of Systems ROS Constitutional: Denies: fatigue, fever, lethargy. Respiratory: Denies: hemoptysis, pleurisy, wheezing. Musculoskeletal: Denies: extremity pain, joint swelling, thoracic pain. Heme: Denies: adenopathy, bleeding, bruising, petechia e, other. Objective General Medications: Active Meds + DC'd Last 24 Hrs Ceftaroline Fosamil (TEFLARO) 400 MG Q8H IV Sodium Chloride (SODIUM CHLORIDE 0.9%) 100 ML Memantine (NAMENDA) 10 MG DAILY PO Donepezil HCl (ARICEPT) 10 MG BEDTIME PO Vancomycin HCl (VANCOMYCIN HCL) 500 MG Q24H IV Sodium Chloride (SODIUM CHLORIDE 0.9% 100 ML) 1 00 ML Ceftaroline Fosamil (TEFLARO) 600 MG Q12H IV (DC ) Sodium Chloride (SODIUM CHLORIDE 0.9%) 100 ML Metoprolol Tartrate (LOPRESSOR) 25 MG Q12HR PO Acetaminophen (TYLENOL) 650 MG Q4H PRN PRN RECTA L Hydralazine HCl (APRESOLINE) 10 MG Q6H PRN PRN I V Enoxaparin Sodium (lovENOX) 30 MG Q24H SUBQ Calcium Gluconate/Sodium Chloride (Calcium Gluco alexia 1 GM/NS 50 mL) 50 ML ASDIR PRN IV Calcium Gluconate/Sodium Chloride (Calcium Gluco alexia 2 GM/NS 100 mL) 100 ML ASDIR PRN IV Lactated Ringer's (LACTATED RINGERS) 1,000 ML GILLIAN MARTY IV Magnesium Sulfate (MAGNESIUM SULFATE 2GM/SWFI 50 ML) 50 ML ASDIR PRN IV Potassium Chloride (KCL 20MEQ/SWFI 100ML) 100 ML ASDIR PRN IV Potassium Chloride (POTASSIUM CHLORIDE 20MEQ TAB .ER) 20 MEQ ASDIR PRN PO Potassium Chloride (POTASSIUM CHLORIDE 20MEQ TAB .ER) 40 MEQ ASDIR PRN PO Potassium Phosphate (POTASSIUM PHOSPHATE) 15 MM ASDIR PRN IV Sodium Chloride (SODIUM CHLORIDE 0.9%) 100 ML Potassium Phosphate (POTASSIUM PHOSPHATE) 20 MM ASDIR PRN IV Sodium Chloride (SODIUM CHLORIDE 0.9%) 250 ML Potassium Phosphate (POTASSIUM PHOSPHATE) 30 MM ASDIR PRN IV Sodium Chloride (SODIUM CHLORIDE 0.9%) 250 ML Sodium Phosphate (SODIUM PHOSPHATE) 15 MMOL ASDI R PRN IV Sodium Chloride (SODIUM CHLORIDE 0.9%) 100 ML Sodium Phosphate (SODIUM PHOSPHATE) 20 MMOL ASDI R PRN IV Sodium Chloride (SODIUM CHLORIDE 0.9%) 250 ML Sodium Phosphate (SODIUM PHOSPHATE) 30 MMOL ASDI R PRN IV Sodium Chloride (SODIUM CHLORIDE 0.9%) 250 ML Acetaminophen (TYLENOL) 650 MG Q4H PRN PRN PO Ondansetron HCl (ZOFRAN) 4 MG Q4H PRN PRN IV Dextrose/Water (DEXTROSE 50% W SYRINGE) 25 ML DIR PRN IV (CKD) Dextrose/Water (DEXTROSE 50% W SYRINGE) 50 ML DIR PRN IV (CKD) Glucagon (GLUCAGON) 1 MG ASDIR PRN IM Insulin Human Lispro (HUMALOG) 0 AC HS SUBQ Miscellaneous Information (VANCOMYCIN PHARMACY T O DOSE) 1 EACH ASDIR IV (CKD) Physical Exam Considered stroke alert: yes Free Text Obj Notes Free Text Obj Notes: General appearance: Not in distress Head/Eyes: atraumatic, normocephalic, PERRLA Neck: full range of motion, non-tender, normal t hyroid Cardiovascular: normal heart sounds, normal S1/S 2, regular rate rhythm Respiratory/chest: aerating well, clear to auscu ltation, symmetric expansion Abdomen: soft, non-tender, normal bowel sounds Genitourinary: no bladder distention, no flank p ain Extremities: No edema, moves all, normal capilla ry refill, no calf tenderness Musculoskeletal: full range of motion, normal in spection, painless range of motion, straight leg raise neg Skin: dry, intact, normal color Diagnosis, Assessment Plan Problem List/A P: 1. Sepsis 2. MRSA bacteremia 3. Normocytic anemia 4. Lactic acidosis 5. Acute systolic (congestive) heart failure 6. Infective endocarditis of pulmonary valve 7. CKD (chronic kidney disease) 8. DM2 (diabetes mellitus, type 2) Free Text A P: 1. Pulmonary septic emboli #2 infective endocarditis, pulmonary valve #3 MRSA bacteremia #4 bilateral atelectasis #5 small pleural effusion #5 pulmonary nodules CTA chest reviewed, bilateral variable s ized pulmonary nodules consistent with active inflammatory/infectio us process, it is septic emboli secondary to a right side endocarditis Patient is a smoker [id number], high risk of m alignancy We will plan to repeat the C AT scan in 6 weeks to assure stability of the nodule or resolution Antibiotic vancomycin and ceftaroline per ID Looks euvolemic Pulmonary toilet [facility] Prophylaxis VTE prophylaxis initiated: yes Electronically Signed by Alida Westfall MD on 03/17 11/05 at 0909 RPT #:[id number] END OF REPORT 2022-03-29 14:26:00-00:00 [facility] ([facility]) Pharmacy Prog.Note-Vancomycin REPORT#:[id number] REPORT STATUS: Signed DATE:03/29/22 TIME: 1426 PATIENT: MICHAELA MATIAS UNIT #: [id number] ROOM/BED: [place] [address] : 41 AGE: 81 SEX: F ATTEND: Trevon Kimball MD ADM AUTHOR: Alexys Griggs RP h * ALL edits or amendments must be made on the [employer]/computer document * See Addendum Vancomycin Vancomycin Medication Therapy Goal: AUC 400-600 mcg*hr/mL Indication for treatment: Bacteremia Weight: Actual weight (kg): 51.71 VS and I/O: Vital Signs Date Temp Pulse Resp B/P B/P Mean Pulse Ox FiO 2 03/26-03/29 36.3-36.8 57-82 14-48 120-181/58-80 84-111 93-98 72 hours ending at 0700 03/290 03/28 1900 03/26 0700 1900 Intake 200.00 600.00 480 200.00 Total Output 900 150 350 Total Balance 200.00 -300 480 50.00 -350 Intake, IV 200.00 300.00 200.00 Intake, 300 480 Oral Number 1 0 1 Bowel Movements Number 2 1 1 Incontinen t Voids Output, 900 150 350 Urine Patient 51.71 kg Weight 72 Hour I O Total 03/29 0700 03/28 0700 03/27 0700 Intake Total 800.00 480 200.00 Output Total 900 500 Balance -100.00 480 -300.00 Labs: Laboratory Tests: 03/29 0140 Toxicology Vancomycin Peak (30 - 40 MCG/ML) 23.2 L Laboratory Test : 03/29 05 Chemistry BUN (7 - 18 mg/dL) 11 Creatinine (0.6 - 1.3 mg/dL) 0.8 Hematology WBC (4.5 - 11.0 x10 3/uL) 8.6 Microbiology: 03/29 930 BLOOD: Blood Culture - RECD 03/29 930 BLOOD: Blood Culture - RECD 03/28 955 BLOOD: Blood Culture - ORD 03/28 955 BLOOD: Blood Culture - ORD Treatment plan: consult, cont current regimen/do se Regimen: HPI: Michaela Matias is an 81 yo female with PMH of vascular dementia, CAD, DM, HTN, HF, aortic regurgitation, CKD stage III who pres ented to OSH with chest pain, found to have MRSA bacteremia. Patient h ypotensive requiring vasopressors, was admitted to ICU. Pharmacy is consulted to dose v ancomycin. Requesting Provider: Trevon Kimball MD Indication: Bacteremia Vancomycin AUC Goal: 400-600 mcg*hr/mL Concomitant Antibiotics: -Ceftaroline 400 mg IV q8h 03/29 A/P: Labs and Vitals: WBC 8.6 (stable) Afebrile with a Tmax of 36.7C over the past 24 hours Renal Function: BUN/SCr 11/0.8 (stable) Urine Output with 900 mL of UOP and 3 incontine nt voids document over the past 24 hours Estimated CrCl 46 mL/min (using actual body svitlana ght) Microbiology: 03/29 Blood Cx x2: Pending 03/28 Blood Cx x2: Ordered 03/26 Blood Cx x2: 1/4 MRSA 03/24 Blood Cx x2: 2/4 MRSA 03/23 Blood Cx x2: 3/4 MRSA (vanc VALENTINA=1) 03/23 MRSA nasal screen: Negative Imagin/8 IGLESIA: Vegetation on pulmonic valve about 1.1 cm Dosing and Monitoring: -Patient is currently on a vancomycin maintenan ce regimen of 500 mg q24h -Patient had a peak drawn after last night s do se, a trough is due prior to tonight s dose to calculate AUC Pharmacy will continue to monitor Thank you for this consult at 1427 Addendum 1: 03/30/22 0008 by Catherine Alexander RP h * peak drawn @0140 ( 1.5 hr after end of infusio n); resulted 23.2 mcg/mL * trough drawn @2230 ( 23 hr after end of infusi on); resulted 12.4 mcg/mL * AUC 421 mcg*hr/mL (therapeutic) * will continue current regimen of vancomycin 50 0 mg IV q24h * pharmacy will continue to follow and adjust as appropriate at 0009 RPT #:[id number] END OF REPORT 2022-03-29 12:07:00-00:00 [facility] Hospitalist Progress Note REPORT#:[id number] REPORT STATUS: Signed DATE:03/29/22 TIME: 1207 PATIENT: MICHAELA MATIAS UNIT #: [id number] ROOM/BED: [place] [address] : 41 AGE: 81 SEX: F ATTEND: Trevon Kimball MD ADM AUTHOR: Trevon Kimball MD * ALL edits or amendments must be made on the [employer]/computer document * Subjective Chief complaint: d/w speech. advance to mechanical soft. no cp. n o sob. Objective General VS/I O: Vital Signs: Date Time Temp Pulse Resp B/P B/P Pulse O2 O2 F low FiO2 Mean Ox Delivery Rate 03/29 0637 59 03/29 0600 62 14 157/68 98 96 03/29 0501 62 20 145/63 91 96 03/29 0400 98.1 03/29 0400 61 18 145/66 95 93 03/29 0300 60 20 126/75 96 95 03/29 0200 62 17 144/65 94 93 03/29 0101 62 20 153/68 98 94 03/29 0001 63 20 152/68 98 95 03/29 0000 97.8 03/28 2302 60 21 167/73 105 96 03/28 2201 61 18 173/77 111 97 03/28 2154 95 Room air 03/28 2101 66 19 162/71 102 96 03/28 2000 97.9 03/28 2000 66 22 158/72 103 94 03/28 1901 64 32 150/74 107 97 03/28 1701 64 22 141/63 91 98 03/28 1600 97.9 03/28 1600 61 22 162/69 99 98 03/28 1500 59 19 151/69 99 95 03/28 1400 63 18 158/67 97 97 03/28 1300 62 20 153/70 100 98 24 hour I O ending at 0700: 03/29 0700 03/28 1900 Intake Total 200.00 600.00 Output Total 900 Balance 200.00 -300 Intake, IV 200.00 300.00 Intake, Oral 300 Number 1 0 Bowel Movements Number 2 1 Incontinent Voids Output, Urine 900 PATIENT WEIGHT: Weight (lb): 114 Weight (oz): 10.25 Weight (kg): 51.71 Physical Exam General appearance: alert, awake Head/Eyes: atraumatic, normocephalic ENT: normal ear left, normal ear right, normal n ose Neck: full range of motion, no JVD Cardiovascular: normal heart sounds, regular rat e rhythm Respiratory: aerating well, clear to auscultatio n, symmetric expansion, no distress Abdomen: non-tender, normal bowel sounds, soft, no distention Extremities: no clubbing, no cyanosis, no edema 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, no sensory deficit s Considered stroke alert: yes Results Radiology data: Laboratory Tests 03/29/22 0515: [Embedded Image Not Available] 03/28/22 0600: [Embedded Image Not Available] Current Medications Sig/Kathy Start time Last Medication Dose Route Stop Time Status Admin Memantine 10 MG DAILY 03/28 900 AC 03/29 PO 04/27 08940 Donepezil HCl 10 MG BEDTIME 03/27 2100 AC 03/28 PO 04/26 Vancomycin HCl 500 MG Q24H 03/26 2300 AC 03/28 Sodium Chloride 100 ML IV 04/09 2259 231 Ceftaroline Fosamil 600 MG Q12H 03/26 1200 AC 0 9/13 Sodium Chloride 100 ML IV 04/08 1159 0024 Metoprolol Tartrate 25 MG Q12HR 03/25 2100 AC 0 03/29 PO 04/2439 Acetaminophen 650 MG Q4H PRN PRN 03/25 1315 AC 03/25 RECTAL 04/24 1314 1323 Hydralazine HCl 10 MG Q6H PRN PRN 03/25 0930 AC 03/28 IV 04/24 0929 231 Enoxaparin Sodium 30 MG Q24H 03/24 2300 AC 03/17 2 SUBQ 04/23 2259 231 Mupirocin 1 APPLIC BID 03/24 900 DC 03/28 NASAL 03/28 Calcium Gluconate/ 50 ML ASDIR PRN 03/24 011 A C Sodium Chloride IV 04/23 0114 Calcium Gluconate/ 100 ML ASDIR PRN 03/24 011 AC Sodium Chloride IV 04/23 0114 Lactated Ringer's 1,000 ML BOLUS 03/24 011 AC 03/24 IV 04/23 0114 0119 Magnesium Sulfate 50 ML ASDIR PRN 03/24 0115 AC 03/25 IV 04/23 0114 0832 Potassium Chloride 100 ML ASDIR PRN 03/24 011 AC IV 04/23 0114 Potassium Chloride 20 MEQ ASDIR PRN 03/24 011 AC PO 04/23 0114 Potassium Chloride 40 MEQ ASDIR PRN 03/24 011 AC PO 04/23 0114 Potassium Phosphate 15 MM ASDIR PRN 03/24 011 AC Sodium Chloride 100 ML IV 04/23 0114 Potassium Phosphate 20 MM ASDIR PRN 03/24 011 AC Sodium Chloride 250 ML IV 04/23 0114 Potassium Phosphate 30 MM ASDIR PRN 03/24 011 AC Sodium Chloride 250 ML IV 04/23 0114 Sodium Phosphate 15 MMOL ASDIR PRN 03/24 0115 A C Sodium Chloride 100 ML IV 04/23 0114 Sodium Phosphate 20 MMOL ASDIR PRN 03/24 011 AC Sodium Chloride 250 ML IV 04/23 0114 Sodium Phosphate 30 MMOL ASDIR PRN 03/24 011 A C Sodium Chloride 250 ML IV 04/23 0114 Acetaminophen 650 MG Q4H PRN PRN 03/23 2115 AC 03/27 PO 04/22 2114 2335 Ondansetron HCl 4 MG Q4H PRN PRN 03/23 2115 AC IV 04/22 2114 Dextrose/Water 25 ML ASDIR PRN 03/23 2100 CKD IV 04/22 2059 Dextrose/Water 50 ML ASDIR PRN 03/23 2100 CKD IV 04/22 2059 Glucagon 1 MG ASDIR PRN 03/23 2100 AC IM 04/22 2059 Insulin Human Lispro 0 AC HS 03/23 2100 AC SUBQ 04/22 2059 Miscellaneous 1 EACH ASDIR 03/23 2100 CKD Information IV 04/22 2059 Laboratory Tests: 03/29 03/29 03/28 03/28 0515 0140 2030 1645 Chemistry Sodium (134 - 147 mEq/L) 137 Potassium (3.4 - 5.0 mEq/L) 3.8 Chloride (100 - 108 mEq/L) 106 Carbon Dioxide (21 - 33 mEq/l) 20 L Anion Gap (0 - 20) 15 BUN (7 - 18 mg/dL) 11 Creatinine (0.6 - 1.3 mg/dL) 0.8 Glomerular Filtr Rate (70 - 80) 69.0 L Glucose (70 - 110 mg/dL) 84 POC Glucose (70 - 110 MG/DL) 90 95 Calcium (8.0 - 10.5 mg/dL) 8.0 Hematology WBC (4.5 - 11.0 x10 3/uL) 8.6 RBC (3.54 - 5.02 x10 6/uL) 3.37 L Hgb (11.0 - 15.0 g/dL) 9.5 L Hct (33.0 - 45.0 %) 29.4 L MCV (81.0 - 99.0 fL) 87.2 MCH (27.0 - 33.0 pg) 28.2 MCHC (33.0 - 37.0 g/dL) 32.3 L RDW (11.5 - 14.5 %) 15.9 H Plt Count (150 - 400 x10 3/uL) 367 MPV (7.0 - 9.0 fL) 10.5 H Neut % (Auto) (56.0 - 77.0 %) 62.7 Lymph % (Auto) (14.0 - 32.0 %) 25.9 Phelps % (Auto) (4.8 - 9.0 %) 7.1 Eos % (Auto) (0.3 - 3.7 %) 1.7 Baso % (Auto) (0.0 - 2.0 %) 0.7 Neut # (Auto) (2.0 - 7.6 x10 3/uL) 5.39 Lymph # (Auto) (1.0 - 3.8 x10 3/uL) 2.23 Phelps # (Auto) (0.1 - 0.8 x10 3/uL) 0.61 Eos # (Auto) (0.0 - 0.2 x10 3/uL) 0.15 Baso # (Auto) (0.0 - 0.2 x10 3/uL) 0.06 Abs Immat Gran (auto) (0.00 - 0.03 x10 3/uL) 0. 16 H Add Manual Diff NO Immature Gran % (0.0 - 2.0 %) 1.9 Nucleated RBC % (0 - 0 %) 0.0 Nucleated RBCs # (Man) (0.0 - 0.1 x10 3/uL) 0.0 0 Toxicology Vancomycin Peak (30 - 40 MCG/ML) 23.2 L Microbiology: 03/29 930 BLOOD: Blood Culture - RECD 03/29 930 BLOOD: Blood Culture - RECD Diagnosis, Assessment Plan Consultants: cardiology, critical/intens ivist, hospitalist, infectious disease Free Text DxA P Notes Free text DxA P notes: 81 y/o with dementia/HTN/CAD/CHF/aortic regurge/CKD -stage III/DM who presents with persistent bacteremia (presumed MRSA) causi ng sepsis Infective endocarditis Recurrent gram positive bacteremia -at [facility] she was on IV vancomycin IGLESIA showed vegetation in the pulmonary valve culture ....MRSA She will need PICC line after blood culture nega tive 03/28- last bld cx 07/18 still positive. 03/29- repeat bld cx to be dr pedraza today. once negative, picc line and then 6 weeks of IV abx at [facility]. Abonrmal CT chest 03/28- pleural effusion, mult iple nodules, ?pneumoina. ask pulmonary to evaluate. 03/29- need repeat CT chest to f/u on nodules. Delirium 03/28- MRI brain negative. neuro has signed off Poor po intake 03/28- ask nutrtion to see Septic shock - Resolved patient had septic shock at [place] ER req uiring pressors and pt was resussitated with IVF and albumin. Continue to monitor pressure CKD - follow electrolytes, UOP HTN - Per cardiology DVT prophylaxis Lovenox subcu 03/26: on physical exam today aphasia which is grewal dden , code stroke called, CT head, no bleeding, discussed with ICC and neuro. ,her symptoms improved (TIA?) discussed with grandughter (Rosemary), and the pat vito's . BC again growing MRSA, discussed with Dr Lombardo, n ow on Teflaro and vanco neuro check, will keep in ICU 03/27: patient still not back to baseline, confus ed, MRI -ve for stroke, discussed with neuro, delirium? on Teflaro and v anc for Infective endocardititis. 03/28- awaiting transfer to t floor. on IV vanc/teflaro. d/w family at bedside 03/29- awaiting transfer to [facility] floor. if repeat blx cx negative today, then PICC and [facility]w case jaime jarvis. Quality: Gen [facility] Crit Care VTE Prophylaxis VTE prophylaxis initiated: yes Current Medications Current medication review: I attest that the foregoing medication list in [facility] medical record is true, accurate, and complete to the best of my knowled ge. Advanced Care Plan 65 or Older Discussed with: surrogate decis. maker Discussion included: code status Electronically Signed by Trevon Kimball MD on 03/17 10/05 at 1209 RPT #:[id number] END OF REPORT 2022-03-29 11:33:00-00:00 [facility] ([facility]) Infectious Dis. Progress Note REPORT#:[id number] REPORT STATUS: Signed DATE:03/29/22 TIME: 1133 PATIENT: MICHAELA MATIAS UNIT #: [id number] ROOM/BED: [place] [address] : 41 AGE: 81 SEX: F ATTEND: Trevon Kimball MD ADM AUTHOR: Liban Lombardo MD * ALL edits or amendments must be made on the el ectronic/computer document * Subjective Chief complaint: recurrent bacteremia HPI: History is obtained from the records the patient is a poor historian. This is an 81-year-old white female patient with history of type 2 diabetes, hypertension and chronic kid lizabeth disease who was admitted to an outside hospital in [place] with chest pain and elevated tro ponins. At that time the family decl ined cardiac cath and the patient was discharged and then readmitted because of positive blood cultur es for MRSA. The patient was sent home on IV antibiotics and received 2 weeks of therapy presumably vancomycin. She then re presented to [facility] ergency room with sepsis and the blood cultures were again positive for the same organi sm. She was then transferred to [facility]. Today she had a IGLESIA and it shows a pulmonary real ve vegetation. Repeat blood cultures are pending Patient has been started on vancomycin and cefep hazel Patient reports: Yes: feeling better. No: fever, headache, nausea , pain, pain controlled, shortness of breath, vomiting, wheezing. Objective Physical Exam Head/Eyes: atraumatic, clear cornea ENT: moist mucosal membranes, normal dentition Neck: full range of motion, non-tender Cardiovascular: normal heart sounds, regular rat e rhythm Respiratory: clear to auscultation, aerating wel l Abdomen: non-tender, normal bowel sounds Extremities: moves all, normal capillary refill Musculoskeletal: normal inspection, no joint swe lling Considered stroke alert: yes Results Findings/Data: Laboratory Tests 03/29 1645 Chemistry Sodium (134 - 147 mEq/L) 137 Potassium (3.4 - 5.0 mEq/L) 3.8 Chloride (100 - 108 mEq/L) 106 Carbon Dioxide (21 - 33 mEq/l) 20 L Anion Gap (0 - 20) 15 BUN (7 - 18 mg/dL) 11 Creatinine (0.6 - 1.3 mg/dL) 0.8 Glomerular Filtr Rate (70 - 80) 69.0 L Glucose (70 - 110 mg/dL) 84 POC Glucose (70 - 110 MG/DL) 90 95 Calcium (8.0 - 10.5 mg/dL) 8.0 Laboratory Tests 03/29 515 Hematology WBC (4.5 - 11.0 x10 3/uL) 8.6 RBC (3.54 - 5.02 x10 6/uL) 3.37 L Hgb (11.0 - 15.0 g/dL) 9.5 L Hct (33.0 - 45.0 %) 29.4 L MCV (81.0 - 99.0 fL) 87.2 MCH (27.0 - 33.0 pg) 28.2 MCHC (33.0 - 37.0 g/dL) 32.3 L RDW (11.5 - 14.5 %) 15.9 H Plt Count (150 - 400 x10 3/uL) 367 MPV (7.0 - 9.0 fL) 10.5 H Neut % (Auto) (56.0 - 77.0 %) 62.7 Lymph % (Auto) (14.0 - 32.0 %) 25.9 Phelps % (Auto) (4.8 - 9.0 %) 7.1 Eos % (Auto) (0.3 - 3.7 %) 1.7 Baso % (Auto) (0.0 - 2.0 %) 0.7 Neut # (Auto) (2.0 - 7.6 x10 3/uL) 5.39 Lymph # (Auto) (1.0 - 3.8 x10 3/uL) 2.23 Phelps # (Auto) (0.1 - 0.8 x10 3/uL) 0.61 Eos # (Auto) (0.0 - 0.2 x10 3/uL) 0.15 Baso # (Auto) (0.0 - 0.2 x10 3/uL) 0.06 Abs Immat Gran (auto) (0.00 - 0.03 x10 3/uL) 0. 16 H Add Manual Diff NO Immature Gran % (0.0 - 2.0 %) 1.9 Nucleated RBC % (0 - 0 %) 0.0 Nucleated RBCs # (Man) (0.0 - 0.1 x10 3/uL) 0.0 0 Laboratory Tests 03/29 0140 Toxicology Vancomycin Peak (30 - 40 MCG/ML) 23.2 L Diagnosis, Assessment Plan Problem List/A P: 1. MRSA bacteremia 2. Sepsis 3. Infective endocarditis of pulmonary valve Blood cultures are positive again with gram-pos itive cocci in clusters with susceptibilities pending we will continue the va ncomycin and add ceftaroline Primary source is uncertain as physical examination is unremarkable for nidus of infection Would continue vancomycin and add ceftaroline f or double coverage Repeat blood cultures until negative Contact isolation Patient has a right groin c atheter inserted while she is bacteremic which will have to be removed soon Ultimately she will need a PICC line and 4 week s of IV antibiotics as an outpatient 03/28 The patient continues to persistently positive for MRSA in the blood We will continue her dual therapy with vancomyc in and ceftaroline We will keep repeating blood cultures until neg ative I will extend IV antibiotics to 6 weeks after t he first negative culture Patient stable to go to the floor 03/29 Blood cultures have not been sent I will reorder them until negative Continue vancomycin and ceftaroline 4. CKD (chronic kidney disease) 5. DM2 (diabetes mellitus, type 2) Consultants: cardiology, critical/intens ivist, hospitalist, infectious disease Electronically Signed by Liban Lombardo MD on at 1134 RPT #:[id number] END OF REPORT 2022-03-29 10:18:00-00:00 [facility]) Cardiology Progress Note REPORT#:[id number] REPORT STATUS: Signed DATE:03/29/22 TIME: 1018 PATIENT: MICHAELA MATIAS UNIT #: [id number] ROOM/BED: [place] [address] : 41 AGE: 81 SEX: F ATTEND: Trevon Kimball MD ADM AUTHOR: Sherry Gonsales MD * ALL edits or amendments must be made on the [employer]/computer document * Objective General VS/I O: 24 hour I O ending at 0700: 03/29 0700 03/28 1900 Intake Total 200.00 600.00 Output Total 900 Balance 200.00 -300 Intake, IV 200.00 300.00 Intake, Oral 300 Number 1 0 Bowel Movements Number 2 1 Incontinent Voids Output, Urine 900 Vital Signs: Date Time Temp Pulse Resp B/P B/P Pulse O2 O2 F low FiO2 Mean Ox Delivery Rate 03/29 0637 59 03/29 0600 62 14 157/68 98 96 03/29 0501 62 20 145/63 91 96 03/29 0400 36.7 03/29 0400 61 18 145/66 95 93 03/29 0300 60 20 126/75 96 95 09/13 0200 62 17 144/65 94 93 09 0101 62 20 153/68 98 94 03/29 0001 63 20 152/68 98 95 03/29 0000 36.6 09 2302 60 21 167/73 105 96 09 2201 61 18 173/77 111 97 09/ 2154 95 Room air 03/28 2101 66 19 162/71 102 96 09/ 2000 36.6 09/ 2000 66 22 158/72 103 94 09/ 1901 64 32 150/74 107 97 09/ 1701 64 22 141/63 91 98 09/ 1600 36.6 09/ 1600 61 22 162/69 99 98 09/ 1500 59 19 151/69 99 95 09/ 1400 63 18 158/67 97 97 09/ 1300 62 20 153/70 100 98 09/ 1200 36.5 09/ 1200 57 16 149/67 97 98 09/ 1100 59 17 156/68 98 98 PATIENT WEIGHT: Weight (lb): 114 Weight (oz): 10.25 Weight (kg): 51.71 Medications: Active Meds + DC'd Last 24 Hrs Memantine (NAMENDA) 10 MG DAILY PO Donepezil HCl (ARICEPT) 10 MG BEDTIME PO Vancomycin HCl (VANCOMYCIN HCL) 500 MG Q24H IV Sodium Chloride (SODIUM CHLORIDE 0.9% 100 ML) 1 00 ML Ceftaroline Fosamil (TEFLARO) 600 MG Q12H IV Sodium Chloride (SODIUM CHLORIDE 0.9%) 100 ML Metoprolol Tartrate (LOPRESSOR) 25 MG Q12HR PO Acetaminophen (TYLENOL) 650 MG Q4H PRN PRN RECTA L Hydralazine HCl (APRESOLINE) 10 MG Q6H PRN PRN I V Enoxaparin Sodium (lovENOX) 30 MG Q24H SUBQ Mupirocin (BACTROBAN 2% 22 GM OINTMENT) 1 APPLIC BID NASAL (DC) Calcium Gluconate/Sodium Chloride (Calcium Gluco alexia 1 GM/NS 50 mL) 50 ML ASDIR PRN IV Calcium Gluconate/Sodium Chloride (Calcium Gluco alexia 2 GM/NS 100 mL) 100 ML ASDIR PRN IV Lactated Ringer's (LACTATED RINGERS) 1,000 ML GILLIAN MARTY IV Magnesium Sulfate (MAGNESIUM SULFATE 2GM/SWFI 50 ML) 50 ML ASDIR PRN IV Potassium Chloride (KCL 20MEQ/SWFI 100ML) 100 ML ASDIR PRN IV Potassium Chloride (POTASSIUM CHLORIDE 20MEQ TAB .ER) 20 MEQ ASDIR PRN PO Potassium Chloride (POTASSIUM CHLORIDE 20MEQ TAB .ER) 40 MEQ ASDIR PRN PO Potassium Phosphate (POTASSIUM PHOSPHATE) 15 MM ASDIR PRN IV Sodium Chloride (SODIUM CHLORIDE 0.9%) 100 ML Potassium Phosphate (POTASSIUM PHOSPHATE) 20 MM ASDIR PRN IV Sodium Chloride (SODIUM CHLORIDE 0.9%) 250 ML Potassium Phosphate (POTASSIUM PHOSPHATE) 30 MM ASDIR PRN IV Sodium Chloride (SODIUM CHLORIDE 0.9%) 250 ML Sodium Phosphate (SODIUM PHOSPHATE) 15 MMOL ASDI R PRN IV Sodium Chloride (SODIUM CHLORIDE 0.9%) 100 ML Sodium Phosphate (SODIUM PHOSPHATE) 20 MMOL ASDI R PRN IV Sodium Chloride (SODIUM CHLORIDE 0.9%) 250 ML Sodium Phosphate (SODIUM PHOSPHATE) 30 MMOL ASDI R PRN IV Sodium Chloride (SODIUM CHLORIDE 0.9%) 250 ML Acetaminophen (TYLENOL) 650 MG Q4H PRN PRN PO Ondansetron HCl (ZOFRAN) 4 MG Q4H PRN PRN IV Dextrose/Water (DEXTROSE 50% W SYRINGE) 25 ML DIR PRN IV (CKD) Dextrose/Water (DEXTROSE 50% W SYRINGE) 50 ML DIR PRN IV (CKD) Glucagon (GLUCAGON) 1 MG ASDIR PRN IM Insulin Human Lispro (HUMALOG) 0 AC HS SUBQ Miscellaneous Information (VANCOMYCIN PHARMACY T O DOSE) 1 EACH ASDIR IV (CKD) Physical Exam General appearance: awake Neck: full range of motion, non-tender, normal thyroid, supple/no meningismus, no bruit/NL carotids, no JVD, no lymphadenopathy , no masses or swelling Cardiovascular: CV assessment: regular rate and rhythm Respiratory: clear to auscultation, no distress Abdomen: non-tender, normal bowel sounds , no distention, no guarding, no mass/ organomegaly, no pulsatile mass, no rebound Upper extremity: UE assessment: normal capillary refill, no ammy a Lower extremity: LE assessment: normal capillary refill, no ammy a Results Findings/Data: Laboratory Tests 03/29 03/28 03/28 03/28 03/28 0515 2031 1645 1129 1125 Chemistry Sodium (134 - 147 mEq/L) 137 Potassium (3.4 - 5.0 mEq/L) 3.8 Chloride (100 - 108 mEq/L) 106 Carbon Dioxide (21 - 33 mEq/l) 20 L Anion Gap (0 - 20) 15 BUN (7 - 18 mg/dL) 11 Creatinine (0.6 - 1.3 mg/dL) 0.8 Glomerular Filtr Rate (70 - 80) 69.0 L Glucose (70 - 110 mg/dL) 84 POC Glucose (70 - 110 MG/DL) 90 95 89 95 Calcium (8.0 - 10.5 mg/dL) 8.0 Laboratory Tests 03/29 0515 Hematology WBC (4.5 - 11.0 x10 3/uL) 8.6 RBC (3.54 - 5.02 x10 6/uL) 3.37 L Hgb (11.0 - 15.0 g/dL) 9.5 L Hct (33.0 - 45.0 %) 29.4 L MCV (81.0 - 99.0 fL) 87.2 MCH (27.0 - 33.0 pg) 28.2 MCHC (33.0 - 37.0 g/dL) 32.3 L RDW (11.5 - 14.5 %) 15.9 H Plt Count (150 - 400 x10 3/uL) 367 MPV (7.0 - 9.0 fL) 10.5 H Neut % (Auto) (56.0 - 77.0 %) 62.7 Lymph % (Auto) (14.0 - 32.0 %) 25.9 Phelps % (Auto) (4.8 - 9.0 %) 7.1 Eos % (Auto) (0.3 - 3.7 %) 1.7 Baso % (Auto) (0.0 - 2.0 %) 0.7 Neut # (Auto) (2.0 - 7.6 x10 3/uL) 5.39 Lymph # (Auto) (1.0 - 3.8 x10 3/uL) 2.23 Phelps # (Auto) (0.1 - 0.8 x10 3/uL) 0.61 Eos # (Auto) (0.0 - 0.2 x10 3/uL) 0.15 Baso # (Auto) (0.0 - 0.2 x10 3/uL) 0.06 Abs Immat Gran (auto) (0.00 - 0.03 x10 3/uL) 0 .16 H Add Manual Diff NO Immature Gran % (0.0 - 2.0 %) 1.9 Nucleated RBC % (0 - 0 %) 0.0 Nucleated RBCs # (Man) (0.0 - 0.1 x10 3/uL) 0.0 0 Laboratory Tests 03/29 0140 Toxicology Vancomycin Peak (30 - 40 MCG/ML) 23.2 L Diagnosis, Assessment Plan Problem List/A P: 1. MRSA bacteremia 2. Sepsis 3. Lactic acidosis 4. Infective endocarditis of pulmonary valve Consultants: cardiology, critical/intens ivist, hospitalist, infectious disease Free Text DxA P Notes Free Text DxA P Notes: 03/24 awake, stable BP , IGLESIA showed veg on pulm valve, ID was informed. IV abx. 03/25 doing well, stable, on IV abx, high BP will star t med, ok to go to tele. 03/26 awake, doing ok, had TIA yes terday, CT was ok, will get echo with bubble study, on IV abx. 03/27 resting, confusion and dementia worse, r estart meds, ok to go to tele, cont IV abx, no PFO on echo, EF is better. 03/28 doing much better today, awake, stable cardiac w ise, on IV abx, in NSR, cont same tx. 03/29 stable, doing ok, awake, no new issues, on IV ab x, going to floor. Electronically Signed by Sherry Gonsales MD on 0 03/29/22 at 1019 RPT #:[id number] END OF REPORT 2022-03-29 09:26:00-00:00 [facility] ([facility]) Pulmonology Progress Note REPORT#:[id number] REPORT STATUS: Signed DATE:03/29/22 TIME: 925 PATIENT: MICHAELA MATIAS UNIT #: [id number] ROOM/BED: [facility]-1 : 41 AGE: 81 SEX: F ATTEND: Trevon Kimball MD ADM AUTHOR: Alida Westfall MD * ALL edits or amendments must be made on the el [employer] document * Review of Systems ROS Constitutional: Denies: fatigue, fever, lethargy. Respiratory: Denies: hemoptysis, pleurisy, wheezing. Musculoskeletal: Denies: extremity pain, joint swelling, thoracic pain. Heme: Denies: adenopathy, bleeding, bruising, petechia e, other. Objective General VS/I O: Last Documented: Result Date Time Pulse 59 03/29 0637 Pulse Ox 96 03/29 06 B/P 157/68 03/29 0600 B/P Mean 98 03/29 0600 Resp 14 03/29 06 Temp 36.7 03/29 0400 O2 Delivery Room air 03/28 2154 O2 Flow Rate 2 03/24 0800 24 hour I O ending at 0700: 03/29 0700 03/28 1900 Intake Total 200.00 600.00 Output Total 900 Balance 200.00 -300 Intake, IV 200.00 300.00 Intake, Oral 300 Number 1 0 Bowel Movements Number 2 1 Incontinent Voids Output, Urine 900 PATIENT WEIGHT: Weight (lb): 114 Weight (oz): 10.25 Weight (kg): 51.71 Medications: Active Meds + DC'd Last 24 Hrs Memantine (NAMENDA) 10 MG DAILY PO Donepezil HCl (ARICEPT) 10 MG BEDTIME PO Vancomycin HCl (VANCOMYCIN HCL) 500 MG Q24H IV Sodium Chloride (SODIUM CHLORIDE 0.9% 100 ML) 1 00 ML Ceftaroline Fosamil (TEFLARO) 600 MG Q12H IV Sodium Chloride (SODIUM CHLORIDE 0.9%) 100 ML Metoprolol Tartrate (LOPRESSOR) 25 MG Q12HR PO Acetaminophen (TYLENOL) 650 MG Q4H PRN PRN RECTA L Hydralazine HCl (APRESOLINE) 10 MG Q6H PRN PRN I V Enoxaparin Sodium (lovENOX) 30 MG Q24H SUBQ Mupirocin (BACTROBAN 2% 22 GM OINTMENT) 1 APPLIC BID NASAL (DC) Calcium Gluconate/Sodium Chloride (Calcium Gluco alexia 1 GM/NS 50 mL) 50 ML ASDIR PRN IV Calcium Gluconate/Sodium Chloride (Calcium Gluco alexia 2 GM/NS 100 mL) 100 ML ASDIR PRN IV Lactated Ringer's (LACTATED RINGERS) 1,000 ML GILLIAN MARTY IV Magnesium Sulfate (MAGNESIUM SULFATE 2GM/SWFI 50 ML) 50 ML ASDIR PRN IV Potassium Chloride (KCL 20MEQ/SWFI 100ML) 100 ML ASDIR PRN IV Potassium Chloride (POTASSIUM CHLORIDE 20MEQ TAB .ER) 20 MEQ ASDIR PRN PO Potassium Chloride (POTASSIUM CHLORIDE 20MEQ TAB .ER) 40 MEQ ASDIR PRN PO Potassium Phosphate (POTASSIUM PHOSPHATE) 15 MM ASDIR PRN IV Sodium Chloride (SODIUM CHLORIDE 0.9%) 100 ML Potassium Phosphate (POTASSIUM PHOSPHATE) 20 MM ASDIR PRN IV Sodium Chloride (SODIUM CHLORIDE 0.9%) 250 ML Potassium Phosphate (POTASSIUM PHOSPHATE) 30 MM ASDIR PRN IV Sodium Chloride (SODIUM CHLORIDE 0.9%) 250 ML Sodium Phosphate (SODIUM PHOSPHATE) 15 MMOL ASDI R PRN IV Sodium Chloride (SODIUM CHLORIDE 0.9%) 100 ML Sodium Phosphate (SODIUM PHOSPHATE) 20 MMOL ASDI R PRN IV Sodium Chloride (SODIUM CHLORIDE 0.9%) 250 ML Sodium Phosphate (SODIUM PHOSPHATE) 30 MMOL ASDI R PRN IV Sodium Chloride (SODIUM CHLORIDE 0.9%) 250 ML Acetaminophen (TYLENOL) 650 MG Q4H PRN PRN PO Ondansetron HCl (ZOFRAN) 4 MG Q4H PRN PRN IV Dextrose/Water (DEXTROSE 50% W SYRINGE) 25 ML DIR PRN IV (CKD) Dextrose/Water (DEXTROSE 50% W SYRINGE) 50 ML DIR PRN IV (CKD) Glucagon (GLUCAGON) 1 MG ASDIR PRN IM Insulin Human Lispro (HUMALOG) 0 AC HS SUBQ Miscellaneous Information (VANCOMYCIN PHARMACY T O DOSE) 1 EACH ASDIR IV (CKD) Physical Exam Considered stroke alert: yes Free Text Obj Notes Free Text Obj Notes: General appearance: Not in distress Head/Eyes: atraumatic, normocephalic, PERRLA Neck: full range of motion, non-tender, normal t hyroid Cardiovascular: normal heart sounds, normal S1/S 2, regular rate rhythm Respiratory/chest: aerating well, clear to auscu ltation, symmetric expansion Abdomen: soft, non-tender, normal bowel sounds Genitourinary: no bladder distention, no flank p ain Extremities: No edema, moves all, normal capilla ry refill, no calf tenderness Musculoskeletal: full range of motion, normal in spection, painless range of motion, straight leg raise neg Skin: dry, intact, normal color Diagnosis, Assessment Plan Problem List/A P: 1. Sepsis 2. MRSA bacteremia 3. Normocytic anemia 4. Lactic acidosis 5. Acute systolic (congestive) heart failure 6. Infective endocarditis of pulmonary valve 7. CKD (chronic kidney disease) 8. DM2 (diabetes mellitus, type 2) Free Text A P: 1. Pulmonary septic emboli #2 infective endocarditis, pulmonary valve #3 MRSA bacteremia #4 bilateral atelectasis #5 small pleural effusion #5 pulmonary nodules CTA chest reviewed, bilateral variable s ized pulmonary nodules consistent with active inflammatory/infectio us process, it is septic emboli secondary to a right side endocarditis Patient is a smoker [id number], high risk of m alignancy We will plan to repeat the C AT scan in 6 weeks to assure stability of the nodule or resolution Antibiotic vancomycin and ceftaroline per ID Looks euvolemic Pulmonary toilet Looks comfortable Quality: Gen Med Crit Care VTE Prophylaxis VTE prophylaxis initiated: yes Current Medications Current medication review: I attest that the foregoing medication list in [facility] medical record is true, accurate, and complete to the best of my knowled ge. Electronically Signed by Alida Westfall MD on 03/17 10/05 at 0927 RPT #:[id number] END OF REPORT 2022-03-28 17:35:00-00:00 [facility]) Cardiology Progress Note REPORT#:[id number] REPORT STATUS: Signed DATE:03/28/22 TIME: 1735 PATIENT: MICHAELA MATIAS UNIT #: [id number] ROOM/BED: [facility]-1 : 41 AGE: 81 SEX: F ATTEND: Trevon Kimball MD ADM AUTHOR: Sherry Gonsales MD * ALL edits or amendments must be made on the el [employer] document * Objective General VS/I O: 24 hour I O ending at 0700: 03/28 0700 03/27 1900 Intake Total 480 Output Total Balance 480 Intake, Oral 480 Number 1 Incontinent Voids Vital Signs: Date Time Temp Pulse Resp B/P B/P Pulse O2 O2 F low FiO2 Mean Ox Delivery Rate 03/28 1701 64 22 141/63 91 98 09/ 1600 36.6 09/ 1600 61 22 162/69 99 98 09/12 1500 59 19 151/69 99 95 09/ 1400 63 18 158/67 97 97 09/ 1300 62 20 153/70 100 98 09/ 1200 36.5 09/ 1200 57 16 149/67 97 98 09/12 1100 59 17 156/68 98 98 09/ 1010 64 20 159/67 97 97 09/ 0900 66 22 169/67 97 95 09/ 0801 62 28 151/69 99 96 09/ 0800 36.3 09/ 0728 96 Room air 03/28 0700 61 25 143/67 96 95 09/ 0609 62 30 146/65 94 96 09/ 0500 63 32 142/67 96 94 09/ 0401 64 32 130/58 84 94 09/ 0400 36.4 09/ 0300 67 27 151/69 99 94 09/12 0201 63 25 132/62 89 95 09/ 0101 63 24 127/60 87 95 09/ 0001 62 22 165/71 102 95 09/ 0000 36.4 09 2301 65 24 173/73 105 95 09/ 2300 64 20 94 09/ 2200 68 26 163/72 103 95 09/ 2100 67 23 151/70 101 95 09/ 2000 36.4 09/ 2000 66 23 137/80 104 09/ 1900 68 36 165/72 104 97 09/11 1800 64 09/ 1800 31 140/63 90 98 PATIENT WEIGHT: Weight (lb): 114 Weight (oz): 10.25 Weight (kg): 51.71 Medications: Active Meds + DC'd Last 24 Hrs Memantine (NAMENDA) 10 MG DAILY PO Donepezil HCl (ARICEPT) 10 MG BEDTIME PO Vancomycin HCl (VANCOMYCIN HCL) 500 MG Q24H IV Sodium Chloride (SODIUM CHLORIDE 0.9% 100 ML) 1 00 ML Ceftaroline Fosamil (TEFLARO) 600 MG Q12H IV Sodium Chloride (SODIUM CHLORIDE 0.9%) 100 ML Metoprolol Tartrate (LOPRESSOR) 25 MG Q12HR PO Acetaminophen (TYLENOL) 650 MG Q4H PRN PRN RECTA L Hydralazine HCl (APRESOLINE) 10 MG Q6H PRN PRN I V Enoxaparin Sodium (lovENOX) 30 MG Q24H SUBQ Mupirocin (BACTROBAN 2% 22 GM OINTMENT) 1 APPLIC BID NASAL Calcium Gluconate/Sodium Chloride (Calcium Gluco alexia 1 GM/NS 50 mL) 50 ML ASDIR PRN IV Calcium Gluconate/Sodium Chloride (Calcium Gluco alexia 2 GM/NS 100 mL) 100 ML ASDIR PRN IV Lactated Ringer's (LACTATED RINGERS) 1,000 ML GILLIAN MARTY IV Magnesium Sulfate (MAGNESIUM SULFATE 2GM/SWFI 50 ML) 50 ML ASDIR PRN IV Potassium Chloride (KCL 20MEQ/SWFI 100ML) 100 ML ASDIR PRN IV Potassium Chloride (POTASSIUM CHLORIDE 20MEQ TAB .ER) 20 MEQ ASDIR PRN PO Potassium Chloride (POTASSIUM CHLORIDE 20MEQ TAB .ER) 40 MEQ ASDIR PRN PO Potassium Phosphate (POTASSIUM PHOSPHATE) 15 MM ASDIR PRN IV Sodium Chloride (SODIUM CHLORIDE 0.9%) 100 ML Potassium Phosphate (POTASSIUM PHOSPHATE) 20 MM ASDIR PRN IV Sodium Chloride (SODIUM CHLORIDE 0.9%) 250 ML Potassium Phosphate (POTASSIUM PHOSPHATE) 30 MM ASDIR PRN IV Sodium Chloride (SODIUM CHLORIDE 0.9%) 250 ML Sodium Phosphate (SODIUM PHOSPHATE) 15 MMOL ASDI R PRN IV Sodium Chloride (SODIUM CHLORIDE 0.9%) 100 ML Sodium Phosphate (SODIUM PHOSPHATE) 20 MMOL ASDI R PRN IV Sodium Chloride (SODIUM CHLORIDE 0.9%) 250 ML Sodium Phosphate (SODIUM PHOSPHATE) 30 MMOL ASDI R PRN IV Sodium Chloride (SODIUM CHLORIDE 0.9%) 250 ML Acetaminophen (TYLENOL) 650 MG Q4H PRN PRN PO Ondansetron HCl (ZOFRAN) 4 MG Q4H PRN PRN IV Dextrose/Water (DEXTROSE 50% W SYRINGE) 25 ML DIR PRN IV (CKD) Dextrose/Water (DEXTROSE 50% W SYRINGE) 50 ML DIR PRN IV (CKD) Glucagon (GLUCAGON) 1 MG ASDIR PRN IM Insulin Human Lispro (HUMALOG) 0 AC HS SUBQ Miscellaneous Information (VANCOMYCIN PHARMACY T O DOSE) 1 EACH ASDIR IV (CKD) Physical Exam General appearance: awake Neck: full range of motion, non-tender, normal thyroid, supple/no meningismus, no bruit/NL carotids, no JVD, no lymphadenopathy , no masses or swelling Cardiovascular: CV assessment: regular rate and rhythm Respiratory: clear to auscultation, no distress Abdomen: non-tender, normal bowel sounds , no distention, no guarding, no mass/ organomegaly, no pulsatile mass, no rebound Upper extremity: UE assessment: normal capillary refill, no ammy a Lower extremity: LE assessment: normal capillary refill, no ammy a Results Findings/Data: Laboratory Tests 03/28 03/28 03/28 03/28 03/28 1645 1129 1125 0859 0600 Chemistry Sodium (134 - 147 mEq/L) 138 Potassium (3.4 - 5.0 mEq/L) 3.7 Chloride (100 - 108 mEq/L) 107 Carbon Dioxide (21 - 33 mEq/l) 19 L Anion Gap (0 - 20) 16 BUN (7 - 18 mg/dL) 12 Creatinine (0.6 - 1.3 mg/dL) 0.8 Glomerular Filtr Rate (70 - 80) 69.0 L Glucose (70 - 110 mg/dL) 80 POC Glucose (70 - 110 MG/DL) 95 89 95 83 Calcium (8.0 - 10.5 mg/dL) 8.0 Total Bilirubin (0.0 - 1.0 mg/dL) 0.30 AST (15 - 37 IUnit/L) 21 ALT (30 - 65 IUnit/L) 7 L Total Alk Phosphatase (20 - 125 IUnit/L) 92 Total Protein (6.4 - 8.2 g/dL) 6.2 L Albumin (3.4 - 5.0 g/dL) 2.30 L 03/27 2056 Chemistry POC Glucose (70 - 110 MG/DL) 91 Laboratory Tests 03/28 0600 Hematology WBC (4.5 - 11.0 x10 3/uL) 9.4 RBC (3.54 - 5.02 x10 6/uL) 3.32 L Hgb (11.0 - 15.0 g/dL) 9.3 L Hct (33.0 - 45.0 %) 28.1 L MCV (81.0 - 99.0 fL) 84.6 MCH (27.0 - 33.0 pg) 28.0 MCHC (33.0 - 37.0 g/dL) 33.1 RDW (11.5 - 14.5 %) 15.6 H Plt Count (150 - 400 x10 3/uL) 347 MPV (7.0 - 9.0 fL) 10.1 H Neut % (Auto) (56.0 - 77.0 %) 68.2 Lymph % (Auto) (14.0 - 32.0 %) 22.2 Phelps % (Auto) (4.8 - 9.0 %) 6.1 Eos % (Auto) (0.3 - 3.7 %) 1.3 Baso % (Auto) (0.0 - 2.0 %) 0.5 Neut # (Auto) (2.0 - 7.6 x10 3/uL) 6.43 Lymph # (Auto) (1.0 - 3.8 x10 3/uL) 2.09 Phelps # (Auto) (0.1 - 0.8 x10 3/uL) 0.57 Eos # (Auto) (0.0 - 0.2 x10 3/uL) 0.12 Baso # (Auto) (0.0 - 0.2 x10 3/uL) 0.05 Abs Immat Gran (auto) (0.00 - 0.03 x10 3/uL) 0. 16 H Add Manual Diff NO Immature Gran % (0.0 - 2.0 %) 1.7 Nucleated RBC % (0 - 0 %) 0.0 Nucleated RBCs # (Man) (0.0 - 0.1 x10 3/uL) 0.0 0 Diagnosis, Assessment Plan Problem List/A P: 1. MRSA bacteremia 2. Sepsis 3. Lactic acidosis 4. Infective endocarditis of pulmonary valve Consultants: cardiology, critical/intens ivist, hospitalist, infectious disease Free Text DxA P Notes Free Text DxA P Notes: 03/24 awake, stable BP , IGLESIA showed veg on pulm valve, ID was informed. IV abx. 03/25 doing well, stable, on IV abx, high BP will star t med, ok to go to tele. 03/26 awake, doing ok, had TIA yes terday, CT was ok, will get echo with bubble study, on IV abx. 03/27 resting, confusion and dementia worse, r estart meds, ok to go to tele, cont IV abx, no PFO on echo, EF is better. 9/12 doing much better today, awake, stable cardiac w ise, on IV abx, in NSR, cont same tx. Electronically Signed by Sherry Gonsales MD on 0 03/28/22 at 1739 [facility] #:[id number] END OF REPORT 2022-03-28 12:20:00-00:00 [facility] ([facility]) Infectious Dis. Progress Note REPORT#:[id number] REPORT STATUS: Signed DATE:03/28/22 TIME: 1220 PATIENT: MICHAELA MATIAS UNIT #: [id number] ROOM/BED: [place] [address] : 41 AGE: 81 SEX: F ATTEND: Trevon Kimball MD ADM AUTHOR: Liban Lombardo MD * ALL edits or amendments must be made on the el [employer]/computer document * Subjective Chief complaint: recurrent bacteremia HPI: History is obtained from the records the patient is a poor historian. This is an 81-year-old white female patient with history of type 2 diabetes, hypertension and chronic kid lizabeth disease who was admitted to an outside hospital in [place] with chest pain and elevated tro ponins. At that time the family decl ined cardiac cath and the patient was discharged and then readmitted because of positive blood cultur es for MRSA. The patient was sent home on IV antibiotics and received 2 weeks of therapy presumably vancomycin. She then re presented to [facility] ergency room with sepsis and the blood cultures were again positive for the same organi sm. She was then transferred to [facility]. Today she had a IGLESIA and it shows a pulmonary real ve vegetation. Repeat blood cultures are pending Patient has been started on vancomycin and cefep hazel Patient reports: Yes: feeling better. No: diarrhea, fever , headache, nausea, pain, shortness of breath, vomiting, wheezing. Objective Physical Exam Head/Eyes: atraumatic, clear cornea ENT: moist mucosal membranes, normal dentition Neck: full range of motion, non-tender Cardiovascular: normal heart sounds, regular rat e rhythm Respiratory: clear to auscultation, aerating wel l Abdomen: non-tender, normal bowel sounds Extremities: moves all, normal capillary refill Musculoskeletal: normal inspection, no joint swe lling Considered stroke alert: yes Results Findings/Data: Laboratory Tests 03/28 03/28 03/28 03/28 03/27 1129 1125 0859 0600 2056 Chemistry Sodium (134 - 147 mEq/L) 138 Potassium (3.4 - 5.0 mEq/L) 3.7 Chloride (100 - 108 mEq/L) 107 Carbon Dioxide (21 - 33 mEq/l) 19 L Anion Gap (0 - 20) 16 BUN (7 - 18 mg/dL) 12 Creatinine (0.6 - 1.3 mg/dL) 0.8 Glomerular Filtr Rate (70 - 80) 69.0 L Glucose (70 - 110 mg/dL) 80 POC Glucose (70 - 110 MG/DL) 89 95 83 91 Calcium (8.0 - 10.5 mg/dL) 8.0 Total Bilirubin (0.0 - 1.0 mg/dL) 0.30 AST (15 - 37 IUnit/L) 21 ALT (30 - 65 IUnit/L) 7 L Total Alk Phosphatase (20 - 125 IUnit/L) 92 Total Protein (6.4 - 8.2 g/dL) 6.2 L Albumin (3.4 - 5.0 g/dL) 2.30 L 03/27 1552 Chemistry POC Glucose (70 - 110 MG/DL) 100 Laboratory Tests 03/28 0600 Hematology WBC (4.5 - 11.0 x10 3/uL) 9.4 RBC (3.54 - 5.02 x10 6/uL) 3.32 L Hgb (11.0 - 15.0 g/dL) 9.3 L Hct (33.0 - 45.0 %) 28.1 L MCV (81.0 - 99.0 fL) 84.6 MCH (27.0 - 33.0 pg) 28.0 MCHC (33.0 - 37.0 g/dL) 33.1 RDW (11.5 - 14.5 %) 15.6 H Plt Count (150 - 400 x10 3/uL) 347 MPV (7.0 - 9.0 fL) 10.1 H Neut % (Auto) (56.0 - 77.0 %) 68.2 Lymph % (Auto) (14.0 - 32.0 %) 22.2 Phelps % (Auto) (4.8 - 9.0 %) 6.1 Eos % (Auto) (0.3 - 3.7 %) 1.3 Baso % (Auto) (0.0 - 2.0 %) 0.5 Neut # (Auto) (2.0 - 7.6 x10 3/uL) 6.43 Lymph # (Auto) (1.0 - 3.8 x10 3/uL) 2.09 Phelps # (Auto) (0.1 - 0.8 x10 3/uL) 0.57 Eos # (Auto) (0.0 - 0.2 x10 3/uL) 0.12 Baso # (Auto) (0.0 - 0.2 x10 3/uL) 0.05 Abs Immat Gran (auto) (0.00 - 0.03 x10 3/uL) 0. 16 H Add Manual Diff NO Immature Gran % (0.0 - 2.0 %) 1.7 Nucleated RBC % (0 - 0 %) 0.0 Nucleated RBCs # (Man) (0.0 - 0.1 x10 3/uL) 0.0 0 Diagnosis, Assessment Plan Problem List/A P: 1. MRSA bacteremia 2. Sepsis 3. Infective endocarditis of pulmonary valve Blood cultures are positive again with gram-pos itive cocci in clusters with susceptibilities pending we will continue the va ncomycin and add ceftaroline Primary source is uncertain as physical examination is unremarkable for nidus of infection Would continue vancomycin and add ceftaroline f or double coverage Repeat blood cultures until negative Contact isolation Patient has a right groin c atheter inserted while she is bacteremic which will have to be removed soon Ultimately she will need a PICC line and 4 week s of IV antibiotics as an outpatient 03/28 The patient continues to persistently positive for MRSA in the blood We will continue her dual therapy with vancomyc in and ceftaroline We will keep repeating blood cultures until neg ative I will extend IV antibiotics to 6 weeks after t he first negative culture Patient stable to go to the floor 4. CKD (chronic kidney disease) 5. DM2 (diabetes mellitus, type 2) Consultants: cardiology, critical/intens ivist, hospitalist, infectious disease Electronically Signed by Liban Lombardo MD on at 1221 RPT #:[id number] END OF REPORT 2022-03-28 12:02:00-00:00 [facility] ([facility]) Pharmacy Prog.Note-Vancomycin REPORT#:[id number] REPORT STATUS: Signed DATE:03/28/22 TIME: 1201 PATIENT: MICHAELA MATIAS UNIT #: [id number] ROOM/BED: [place] [address] : 41 AGE: 81 SEX: F ATTEND: Trevon Kimball MD ADM AUTHOR: Misti Campbell [facility] * ALL edits or amendments must be made on the [employer]/computer document * Vancomycin Vancomycin Medication Therapy Goal: AUC 400-600 mcg*hr/mL Indication for treatment: Bacteremia Current therapy: Vancomycin 500 mg IV q24h Day of therapy: Day 5 Weight: Actual weight (kg): 51.7 VS and I/O: Vital Signs Date Temp Pulse Resp B/P B/P Mean Pulse Ox FiO2 03/25-03/28 36.2-36.9 59-101 12-56 113-196/52-8 0 75-109 92-100 72 hours ending at 0700 03/28 0703/27 19003/27 1900 03/25 0700 1900 Intake 480 200.00 750.00 1105.00 Total Output 150 350 700 350 Total Balance 480 50.00 -350 50.00 755.00 Intake, IV 200.00 350.00 265.00 Intake, 480 400 720 Oral Intake, 120 Oral Supplement Number 1 Bowel Movements Number 1 3 Incontinen t Voids Number 3 Voids Output, 150 350 700 350 Urine Patient 51.71 kg Weight 72 Hour I O Total 03/28 07 Intake Total 480 200.00 1855.00 Output Total 500 1050 Balance 480 -300.00 805.00 Labs: Laboratory Test : 03/28 600 Chemistry BUN (7 - 18 mg/dL) 12 Creatinine (0.6 - 1.3 mg/dL) 0.8 Hematology WBC (4.5 - 11.0 x10 3/uL) 9.4 Microbiology: 03/28 955 BLOOD: Blood Culture - ORD 03/28 955 BLOOD: Blood Culture - ORD 03/26 300 BLOOD: Blood Culture - RES COAG POS STAPHYLOCOCCUS 03/26 300 BLOOD: Blood Culture Gram Stain - RES 03/26 300 BLOOD: Blood Culture - RES Treatment plan: consult Regimen: HPI: Michaela Matias is an 81 year old female with a past medical history of vascular dementia, CAD, diabetes mellitu s, hypertension, heart failure, aortic regurgitation, and CKD stage III who presented to an outside hospital with chest pain. She was found to have MRSA bacteremia. The patient became hypotensive requiring vasopressors and was subsequen tly admitted to ICU. Pharmacy has been consulted for the dosing and monitoring of vanco mycin. Requesting Provider: Dr. Trevon MCKINNON Consult: Dr. Liban Lombardo Indication: Bacteremia Vancomycin AUC Goal: 400-600 mcg*hr/mL Concomitant Antibiotics: * Ceftaroline 600 mg IV q8h (03/25 - Present) 03/28 Assessment and Plan Labs and Vitals: * WBC 9.4 (trended down and now within normal li mits) * Afebrile with a Tmax of 36.8 C over the past 2 4 hours Renal Function: * BUN/SCr 12/0.8 (relatively stable) * Urine output: 600 mL and 1 incontinent void documented over the past 24 hours * Estimated CrCl 46 mL/min (using actual body we ight) Microbiology: * 03/23: MRSA Nasal Screen - Negative * 03/23: Blood Cultures x2 - MRSA * 03/24: Blood Cultures x2 - MRSA * 03/26: Blood Cultures - Coagulase positive Sta phylococci * 03/28: Blood Cultures - Ordered Imaging: * 03/24: IGLESIA - Vegetation on pulmonic valve abou t 1.1 cm Dosing and Monitoring: * The patient is currently being maintained on v ancomycin 500 mg IV q24h * A vancomycin peak level on 03/26 at 01 30 was 25.2 mcg/mL, but this lab value is was drawn prior to the dose change to 500 mg IV q24h, and is not reflective of a level with this new vancomycin regimen * Will continue vancomycin 500 mg IV q24 h and order vancomycin peak and trough level for tomorrow (03/29) at 0130 and 2230, res pectively * The pharmacist will contin ue to follow along and adjust the dose as clinically indicated at 1217 RPT #:[id number] END OF REPORT 2022-03-28 10:41:00-00:00 [facility] Hospitalist Progress Note REPORT#:[id number] REPORT STATUS: Signed DATE:03/28/22 TIME: 1041 PATIENT: MICHAELA MATIAS UNIT #: [id number] ROOM/BED: [place] [address] : 41 AGE: 81 SEX: F ATTEND: Trevon Kimball MD ADM AUTHOR: Trevon Kimball MD * ALL edits or amendments must be made on the [employer]/computer document * Subjective Chief complaint: no major c/o. poor apetite. no cp no sob. Objective General VS/I O: Vital Signs: Date Time Temp Pulse Resp B/P B/P Pulse O2 O2 F low FiO2 Mean Ox Delivery Rate 03/28 0728 96 Room air 03/28 0609 62 30 146/65 94 96 03/28 0500 63 32 142/67 96 94 03/28 0401 64 32 130/58 84 94 03/28 0400 97.6 03/28 0300 67 27 151/69 99 94 03/28 0201 63 25 132/62 89 95 03/28 0101 63 24 127/60 87 95 / 0001 62 22 165/71 102 95 03/28 0000 97.5 03/27 2301 65 24 173/73 105 95 03/27 2300 64 20 94 03/27 2200 68 26 163/72 103 95 / 2100 67 23 151/70 101 95 03/27 2000 97.5 03/27 2000 66 23 137/80 104 / 1900 68 36 165/72 104 97 / 1800 64 03/27 1800 31 140/63 90 98 / 1700 66 30 147/67 97 96 / 1600 64 / 1600 39 155/67 96 97 / 1500 63 36 134/63 91 96 / 1401 70 48 144/67 97 97 / 1301 67 21 178/74 106 97 / 1201 62 29 120/59 85 96 / 1101 65 30 129/61 88 97 24 hour I O ending at 0700: 03/28 0700 03/27 1900 Intake Total 480 Output Total Balance 480 Intake, Oral 480 Number 1 Incontinent Voids PATIENT WEIGHT: Weight (lb): 114 Weight (oz): 10.25 Weight (kg): 51.71 Physical Exam General appearance: awake Head/Eyes: atraumatic, normocephalic ENT: normal ear left, normal ear right, normal n ose Neck: full range of motion, no JVD Cardiovascular: normal heart sounds, regular rat e rhythm Respiratory: aerating well, clear to auscultatio n, symmetric expansion, no distress Abdomen: non-tender, normal bowel sounds, soft, no distention Extremities: no clubbing, no cyanosis, no edema 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, no sensory deficit s Considered stroke alert: yes Results Radiology data: Laboratory Tests 03/28/22 0600: [Embedded Image Not Available] 03/27/22 0358: [Embedded Image Not Available] Current Medications Sig/Kathy Start time Last Medication Dose Route Stop Time Status Admin Memantine 10 MG DAILY 03/28 900 AC 03/28 PO 04/27 0859 09 Donepezil HCl 5 MG BEDTIME 03/27 2100 DC PO 04/26 2059 Donepezil HCl 10 MG BEDTIME 03/27 2100 AC 03/27 PO 04/26 Vancomycin HCl 500 MG Q24H 03/26 2300 AC 03/27 Sodium Chloride 100 ML IV 04/09 2259 2243 Ceftaroline Fosamil 600 MG Q12H 03/26 1200 AC 0 03/28 Sodium Chloride 100 ML IV 04/08 1159 0008 Metoprolol Tartrate 25 MG Q12HR 03/25 2100 AC 0 03/28 PO 04/24 Acetaminophen 650 MG Q4H PRN PRN 03/25 1315 AC 03/25 RECTAL 04/24 1314 1323 Hydralazine HCl 10 MG Q6H PRN PRN 03/25 0930 AC 03/28 IV 04/24 0929 0043 Enoxaparin Sodium 30 MG Q24H 03/24 2300 AC 03/17 1 SUBQ 04/23 2259 2243 Mupirocin 1 APPLIC BID 03/24 900 AC 03/28 NASAL 03/28 2101 0925 Calcium Gluconate/ 50 ML ASDIR PRN 03/24 0115 A C Sodium Chloride IV 04/23 011 Calcium Gluconate/ 100 ML ASDIR PRN 03/24 011 AC Sodium Chloride IV 04/23 114 Lactated Ringer's 1,000 ML BOLUS 03/24 115 AC 03/24 IV 04/23 011 0119 Magnesium Sulfate 50 ML ASDIR PRN 03/24 011 AC 03/25 IV 04/23 011 0832 Potassium Chloride 100 ML ASDIR PRN 03/24 011 AC IV 04/23 011 Potassium Chloride 20 MEQ ASDIR PRN 03/24 011 AC PO 04/23 011 Potassium Chloride 40 MEQ ASDIR PRN 03/24 011 AC PO 04/23 011 Potassium Phosphate 15 MM ASDIR PRN 03/24 115 AC Sodium Chloride 100 ML IV 04/23 011 Potassium Phosphate 20 MM ASDIR PRN 03/24 115 AC Sodium Chloride 250 ML IV 04/23 114 Potassium Phosphate 30 MM ASDIR PRN 03/24 011 AC Sodium Chloride 250 ML IV 04/23 011 Sodium Phosphate 15 MMOL ASDIR PRN 03/24 115 A C Sodium Chloride 100 ML IV 04/23 011 Sodium Phosphate 20 MMOL ASDIR PRN 03/24 115 A C Sodium Chloride 250 ML IV 04/23 011 Sodium Phosphate 30 MMOL ASDIR PRN 03/24 115 A C Sodium Chloride 250 ML IV 04/23 114 Acetaminophen 650 MG Q4H PRN PRN 03/23 2115 AC 03/27 PO 04/22 211 2335 Ondansetron HCl 4 MG Q4H PRN PRN 03/23 2115 AC IV 04/22 2114 Dextrose/Water 25 ML ASDIR PRN 03/23 2100 CKD IV 04/22 2059 Dextrose/Water 50 ML ASDIR PRN 03/23 2100 CKD IV 04/22 2059 Glucagon 1 MG ASDIR PRN 03/23 2100 AC IM 04/22 2059 Insulin Human Lispro 0 AC HS 03/23 2100 AC SUBQ 04/22 2059 Miscellaneous 1 EACH ASDIR 03/23 2100 CKD Information IV 04/22 2059 Laboratory Tests: 03/28 03/28 03/27 03/27 03/27 0859 0600 2056 1552 1116 Chemistry Sodium (134 - 147 mEq/L) 138 Potassium (3.4 - 5.0 mEq/L) 3.7 Chloride (100 - 108 mEq/L) 107 Carbon Dioxide (21 - 33 mEq/l) 19 L Anion Gap (0 - 20) 16 BUN (7 - 18 mg/dL) 12 Creatinine (0.6 - 1.3 mg/dL) 0.8 Glomerular Filtr Rate (70 - 80) 69.0 L Glucose (70 - 110 mg/dL) 80 POC Glucose (70 - 110 MG/DL) 83 91 100 107 Calcium (8.0 - 10.5 mg/dL) 8.0 Total Bilirubin (0.0 - 1.0 mg/dL) 0.30 AST (15 - 37 IUnit/L) 21 ALT (30 - 65 IUnit/L) 7 L Total Alk Phosphatase (20 - 125 IUnit/L) 92 Total Protein (6.4 - 8.2 g/dL) 6.2 L Albumin (3.4 - 5.0 g/dL) 2.30 L Hematology WBC (4.5 - 11.0 x10 3/uL) 9.4 RBC (3.54 - 5.02 x10 6/uL) 3.32 L Hgb (11.0 - 15.0 g/dL) 9.3 L Hct (33.0 - 45.0 %) 28.1 L MCV (81.0 - 99.0 fL) 84.6 MCH (27.0 - 33.0 pg) 28.0 MCHC (33.0 - 37.0 g/dL) 33.1 RDW (11.5 - 14.5 %) 15.6 H Plt Count (150 - 400 x10 3/uL) 347 MPV (7.0 - 9.0 fL) 10.1 H Neut % (Auto) (56.0 - 77.0 %) 68.2 Lymph % (Auto) (14.0 - 32.0 %) 22.2 Phelps % (Auto) (4.8 - 9.0 %) 6.1 Eos % (Auto) (0.3 - 3.7 %) 1.3 Baso % (Auto) (0.0 - 2.0 %) 0.5 Neut # (Auto) (2.0 - 7.6 x10 3/uL) 6.43 Lymph # (Auto) (1.0 - 3.8 x10 3/uL) 2.09 Phelps # (Auto) (0.1 - 0.8 x10 3/uL) 0.57 Eos # (Auto) (0.0 - 0.2 x10 3/uL) 0.12 Baso # (Auto) (0.0 - 0.2 x10 3/uL) 0.05 Abs Immat Gran (auto) (0.00 - 0.03 0.16 H x10 3/uL) Add Manual Diff NO Immature Gran % (0.0 - 2.0 %) 1.7 Nucleated RBC % (0 - 0 %) 0.0 Nucleated RBCs # (Man) (0.0 - 0.1 0.00 x10 3/uL) Microbiology: 03/28 955 BLOOD: Blood Culture - ORD 03/28 955 BLOOD: Blood Culture - ORD Diagnosis, Assessment Plan Consultants: cardiology, critical/intens ivist, hospitalist, infectious disease Free Text DxA P Notes Free text DxA P notes: 81 y/o with dementia/HTN/CAD/CHF/aortic regurge/CKD -stage III/DM who presents with persistent bacteremia (presumed MRSA) causi ng sepsis Infective endocarditis Recurrent gram positive bacteremia -at [facility] son she was on IV vancomycin IGLESIA showed vegetation in the pulmonary valve culture ....MRSA She will need PICC line after blood culture nega tive 03/28- last bld cx 07/[address] chest 03/28- pleural effusion, mult iple nodules, ?pneumoina. ask pulmonary to evaluate. Delirium 03/28- MRI brain negative. neuro has signed off Poor po intake 03/28- ask nutrtion to see Septic shock - Resolved patient had septic shock at [place] [facility] req uiring pressors and pt was resussitated with IVF and albumin. Continue to monitor pressure CKD - follow electrolytes, UOP HTN - Per cardiology DVT prophylaxis Lovenox subcu 03/26: on physical exam today aphasia which is grewal dden , code stroke called, CT head, no bleeding, discussed with ICC and neuro. ,her symptoms improved (TIA?) discussed with grandughter (Rosemary), and the pat ient's . BC again growing MRSA, discussed with mónica Napoles ow on Teflaro and vanco neuro check, will keep in ICU 03/27: patient still not back to baseline, confus ed, MRI -ve for stroke, discussed with neuro, delirium? on Teflaro and v anc for Infective endocardititis. 03/28- awaiting transfer to [facility] floor. on IV vanc/teflaro. d/w family at bedside Quality: Gen Med Crit Care VTE Prophylaxis VTE prophylaxis initiated: yes Current Medications Current medication review: I attest that the foregoing medication list in [facility] medical record is true, accurate, and complete to the best of my knowled ge. Advanced Care Plan 65 or Older Discussed with: surrogate decis. maker Discussion included: code status Electronically Signed by Trevon Kimball MD on 03/17 09/07 at 1044 RPT #:[id number] END OF REPORT 2022-03-28 10:33:00-00:00 [facility] ([facility]) Pulmonary Consultation Note REPORT#:[id number] REPORT STATUS: Signed DATE:03/28/22 TIME: 1033 PATIENT: MICHAELA MATIAS UNIT #: [id number] ROOM/BED: [place] [address] : 41 AGE: 81 SEX: F ATTEND: Trevon iKmball MD ADM AUTHOR: Alida Westfall MD * ALL edits or amendments must be made on the [employer]/computer document * History of Present Illness HPI HPI: 81-year-old female who was hospitalized in [place], She presented with MRSA bacteremia Endocarditis work-up Pulmonary valve vegetation She developed neurologic changes transfer to the ICU Currently she is fully awake, following commands , not in distress, acceptable hemodynamic profile, on room air Denies any fever or chills No shortness of breath at rest Very poor historian no further HPI is obtainable History - Adult longitudinal Additional medical history: CAD, low EF, vascular dementia, aortic regurg, s tage III CKD, HTN. Additional surgical history: CABG 1990 hysterectomy Additional family history: not relavent to current illness Alcohol use: Denies EtOH use Drug use: Denies recreational drugs Smoking status: Smoking status for patients 13 years old or old er: Former Smoker Medications: Home Medications: Medication Dose/Rte/Freq Days Qty Entered Last Max Daily Dose Reviewed CARVEDILOL (COREG) 3.125 MG PO ONCE 03/23/22 Strength: 3.125 MG TAB 2232 2238 LISINOPRIL (ZESTRIL) 2.5 MG PO DAILY 03/23/22 0 03/23/22 Strength: 2.5 MG TAB 2232 2237 ROSUVASTATIN (CRESTOR) 40 MG PO DAILY 03/23/22 03/23/22 Strength: 40 MG TAB 2232 2237 FLUoxetine (PROzac) 20 MG PO DAILY 03/23/2202/04 Strength: 20 MG CAP 2233 2237 OMEPRAZOLE ER 20 MG PO DAILY 03/23/22 03/23/22 Strength: 20 MG CAP.DR 2233 2237 OXYBUTYNIN (DITROPAN) 5 MG PO ONCE 03/23/2202/04 Strength: 5 MG TAB 2235 2237 MEMANTINE (NAMENDA) 10 MG PO DAILY 03/23/2202/04 Strength: 10 MG TAB 2235 2237 MEMANTINE (NAMENDA) 10 MG PO DAILY 03/23/2202/04 Strength: 10 MG TAB 2236 2237 Current Hospital Medications: Anti-Infective Agents Sig/Kathy Start time Last Medication Dose Route Stop Time Status Admin Vancomycin HCl 500 MG Q24H 03/26 2300 AC 03/27 (VANCOMYCIN HCL) IV 04/09 225 2243 Sodium Chloride 100 ML (SODIUM CHLORIDE 0.9% 100 ML) Ceftaroline Fosamil 600 MG Q12H 03/26 1200 AC 0 03/28 (TEFLARO) IV 04/08 1159 0008 Sodium Chloride 100 ML (SODIUM CHLORIDE 0.9%) Miscellaneous 1 EACH ASDIR 03/23 2100 CKD Information IV 04/22 2059 (VANCOMYCIN PHARMACY TO DOSE) Autonomic Drugs Sig/Kathy Start time Last Medication Dose Route Stop Time Status Admin Donepezil HCl 5 MG BEDTIME 03/27 2100 DC (ARICEPT) PO 04/26 2059 Donepezil HCl 10 MG BEDTIME 03/27 2100 AC 03/27 (ARICEPT) PO 04/26 Blood Formation,Coagulation Sig/Kathy Start time Last Medication Dose Route Stop Time Status Admin Enoxaparin Sodium 30 MG Q24H 03/24 2300 AC 03/17 1 (lovENOX) SUBQ 04/23 2259 2243 Cardiovascular Drugs Sig/Kathy Start time Last Medication Dose Route Stop Time Status Admin Metoprolol Tartrate 25 MG Q12HR 03/25 2100 AC 0 03/28 (LOPRESSOR) PO 04/24 Hydralazine HCl 10 MG Q6H PRN PRN 03/25 930 AC 03/28 (APRESOLINE) IV 04/24 929 0043 Central Nervous System Agents Sig/Kathy Start time Last Medication Dose Route Stop Time Status Admin Memantine 10 MG DAILY 03/28 09 AC 03/28 (NAMENDA) PO 04/27 Acetaminophen 650 MG Q4H PRN PRN 03/25 1315 AC 03/25 (TYLENOL) RECTAL 04/24 1314 1323 Magnesium Sulfate 50 ML ASDIR PRN 03/24 115 AC 03/25 (MAGNESIUM SULFATE IV 04/23 114 0832 2GM/SWFI 50ML) Acetaminophen 650 MG Q4H PRN PRN 03/23 2115 AC 03/27 (TYLENOL) PO 04/22 2114 2335 Electrolytic, Caloric, And Alan Sig/Kathy Start time Last Medication Dose Route Stop Time Status Admin Calcium Gluconate/ 50 ML ASDIR PRN 03/24 115 A C Sodium Chloride IV 04/23 114 (Calcium Gluconate 1 GM/NS 50 mL) Calcium Gluconate/ 100 ML ASDIR PRN 03/24 115 AC Sodium Chloride IV 04/23 114 (Calcium Gluconate 2 GM/NS 100 mL) Lactated Ringer's 1,000 ML BOLUS 03/24 115 AC 03/24 (LACTATED RINGERS) IV 04/23 114 0119 Potassium Chloride 100 ML ASDIR PRN 03/24 115 AC (KCL 20MEQ/SWFI IV 04/23 114 100ML) Potassium Chloride 20 MEQ ASDIR PRN 03/24 115 AC (POTASSIUM CHLORIDE PO 04/23 114 20MEQ TAB.ER) Potassium Chloride 40 MEQ ASDIR PRN 03/24 115 AC (POTASSIUM CHLORIDE PO 04/23 114 20MEQ TAB.ER) Potassium Phosphate 15 MM ASDIR PRN 03/24 115 AC (POTASSIUM PHOSPHATE) IV 04/23 114 Sodium Chloride 100 ML (SODIUM CHLORIDE 0.9%) Potassium Phosphate 20 MM ASDIR PRN 03/24 115 AC (POTASSIUM PHOSPHATE) IV 04/23 114 Sodium Chloride 250 ML (SODIUM CHLORIDE 0.9%) Potassium Phosphate 30 MM ASDIR PRN 03/24 115 AC (POTASSIUM PHOSPHATE) IV 04/23 114 Sodium Chloride 250 ML (SODIUM CHLORIDE 0.9%) Sodium Phosphate 15 MMOL ASDIR PRN 03/24 115 AC (SODIUM PHOSPHATE) IV 04/23 114 Sodium Chloride 100 ML (SODIUM CHLORIDE 0.9%) Sodium Phosphate 20 MMOL ASDIR PRN 03/24 115 A C (SODIUM PHOSPHATE) IV 04/23 114 Sodium Chloride 250 ML (SODIUM CHLORIDE 0.9%) Sodium Phosphate 30 MMOL ASDIR PRN 03/24 115 A C (SODIUM PHOSPHATE) IV 04/23 114 Sodium Chloride 250 ML (SODIUM CHLORIDE 0.9%) Dextrose/Water 25 ML ASDIR PRN 03/23 2100 CKD (DEXTROSE 50% W IV 04/22 2059 SYRINGE) Dextrose/Water 50 ML ASDIR PRN 03/23 2100 CKD (DEXTROSE 50% W IV 04/22 2059 SYRINGE) Gastrointestinal Drugs Sig/Kathy Start time Last Medication Dose Route Stop Time Status Admin Ondansetron HCl 4 MG Q4H PRN PRN 03/23 2115 AC (ZOFRAN) IV 04/22 2114 Hormones And Synthetic Substit Sig/Kathy Start time Last Medication Dose Route Stop Time Status Admin Glucagon 1 MG ASDIR PRN 03/23 2100 AC (GLUCAGON) IM 04/22 2059 Insulin Human Lispro 0 AC HS 03/23 2100 AC (HUMALOG) SUBQ 04/22 2059 Skin And Mucous Membrane Agent Sig/Kathy Start time Last Medication Dose Route Stop Time Status Admin Mupirocin 1 APPLIC BID 03/24 900 AC 03/28 (BACTROBAN 2% 22 GM NASAL 03/28 OINTMENT) Allergies: Coded Allergies: meperidine (NAUSEA VOMITING 03/23/22) Review of Systems Unable to obtain due to: Very poor historian Objective Physical Exam Vitals: Last Documented: Result Date Time Pulse Ox 96 03/28 0728 O2 Delivery Room air 03/28 0728 B/P 146/65 03/28 0609 B/P Mean 94 03/28 0609 Pulse 62 03/28 0609 Resp 30 03/28 0609 Temp 36.4 03/28 0400 O2 Flow Rate 2 03/24 800 Considered stroke alert: yes Results Results: x-ray personally reviewed Free Text Obj Notes Free Text Obj Notes: General appearance: Not in distress Head/Eyes: atraumatic, normocephalic, PERRLA Neck: full range of motion, non-tender, normal t hyroid Cardiovascular: normal heart sounds, normal S1/S 2, regular rate rhythm Respiratory/chest: aerating well, clear to auscu ltation, symmetric expansion Abdomen: soft, non-tender, normal bowel sounds Genitourinary: no bladder distention, no flank p ain Extremities: No edema, moves all, normal capilla ry refill, no calf tenderness Musculoskeletal: full range of motion, normal in spection, painless range of motion, straight leg raise neg Skin: dry, intact, normal color Diagnosis, Assessment Plan Diagnosis, Assessment Plan Problem List/A P: 1. Sepsis 2. MRSA bacteremia 3. Normocytic anemia 4. Lactic acidosis 5. Acute systolic (congestive) heart failure 6. Infective endocarditis of pulmonary valve 7. CKD (chronic kidney disease) 8. DM2 (diabetes mellitus, type 2) Consultants: cardiology, critical/intens ivist, hospitalist, infectious disease Free Text DxA P Notes Free Text DxA P Notes: 1. Pulmonary septic emboli #2 infective endocarditis, pulmonary valve #3 MRSA bacteremia #4 bilateral atelectasis #5 small pleural effusion #5 pulmonary nodules CTA chest reviewed, bilateral variable s ized pulmonary nodules consistent with active inflammatory/infectio us process, it is septic emboli secondary to a right side endocarditis Patient is a smoker [id number], high risk of m alignancy We will plan to repeat the C AT scan in 6 weeks to assure stability of the nodule or resolution Antibiotic vancomycin and ceftaroline per ID Looks euvolemic Pulmonary toilet May transfer to [facility] with telemetry Thank you for the consult Electronically Signed by Alida Westfall MD on 03/17 09/07 at [facility] RPT #:[id number] END OF REPORT 2022-03-27 20:08:00-00:00 [facility] ([facility]) Hospitalist Progress Note REPORT#:[id number] REPORT STATUS: Signed DATE:03/27/22 TIME: 2007 PATIENT: MICHAELA MATIAS UNIT #: [id number] ROOM/BED: [address] : [address] AGE: 81 SEX: F ATTEND: Josiane Wisdom MD ADM AUTHOR: Radha Wisdom MD * ALL edits or amendments must be made on the el [employer]/computer document * Subjective Chief complaint: STILL HAS SOME DIFFICULTY TO ANSWER QUESTIONS. H UASBAND AT BEDSIDE Objective General VS/I O: Vital Signs: Date Time Temp Pulse Resp B/P B/P Pulse O2 O2 Flow FiO2 Mean Ox Delivery Rate 03/27 1800 64 03/27 1800 31 140/63 90 98 03/27 1700 66 30 147/67 97 96 03/27 1600 64 03/27 1600 39 155/67 96 97 03/27 1500 63 36 134/63 91 96 03/27 1401 70 48 144/67 97 97 03/27 1301 67 21 178/74 106 97 03/27 1201 62 29 120/59 85 96 03/27 1101 65 30 129/61 88 97 03/27 1000 69 27 140/65 94 97 03/27 0901 65 46 133/60 87 96 03/27 0801 70 38 143/65 94 96 03/27 0800 98.3 03/27 0728 96 Room air 03/27 0701 70 18 170/70 101 97 03/27 0600 75 23 166/70 100 96 03/27 0500 76 96 03/27 0400 98.0 03/27 0400 74 172/70 101 95 03/27 0300 72 96 03/27 0200 73 97 03/27 0100 72 161/67 96 96 03/27 0000 98.0 03/27 0000 76 148/66 95 96 03/26 2300 74 157/66 95 97 03/26 2200 78 154/66 95 03/26 2101 81 18 175/70 101 96 03/26 2100 78 96 24 hour I O ending at 0700: 03/27 0700 03/26 1900 Intake Total 200.00 Output Total 150 350 Balance 50.00 -350 Intake, IV 200.00 Number 1 Bowel Movements Output, Urine 150 350 Patient 51.71 kg Weight PATIENT WEIGHT: Weight (lb): 114 Weight (oz): 10.25 Weight (kg): 51.71 Medications: Active Meds + DC'd Last 24 Hrs Memantine (NAMENDA) 10 MG DAILY PO Donepezil HCl (ARICEPT) 5 MG BEDTIME PO (DC) Donepezil HCl (ARICEPT) 10 MG BEDTIME PO Vancomycin HCl (VANCOMYCIN HCL) 500 MG Q24H IV Sodium Chloride (SODIUM CHLORIDE 0.9% 100 ML) 1 00 ML Ceftaroline Fosamil (TEFLARO) 600 MG Q12H IV Sodium Chloride (SODIUM CHLORIDE 0.9%) 100 ML Metoprolol Tartrate (LOPRESSOR) 25 MG Q12HR PO Acetaminophen (TYLENOL) 650 MG Q4H PRN PRN RECTA L Hydralazine HCl (APRESOLINE) 10 MG Q6H PRN PRN I V Enoxaparin Sodium (lovENOX) 30 MG Q24H SUBQ Mupirocin (BACTROBAN 2% 22 GM OINTMENT) 1 APPLIC BID NASAL Calcium Gluconate/Sodium Chloride (Calcium Gluco alexia 1 GM/NS 50 mL) 50 ML ASDIR PRN IV Calcium Gluconate/Sodium Chloride (Calcium Gluco alexia 2 GM/NS 100 mL) 100 ML ASDIR PRN IV Lactated Ringer's (LACTATED RINGERS) 1,000 ML GILLIAN MARTY IV Magnesium Sulfate (MAGNESIUM SULFATE 2GM/SWFI 50 ML) 50 ML ASDIR PRN IV Potassium Chloride (KCL 20MEQ/SWFI 100ML) 100 ML ASDIR PRN IV Potassium Chloride (POTASSIUM CHLORIDE 20MEQ TAB .ER) 20 MEQ ASDIR PRN PO Potassium Chloride (POTASSIUM CHLORIDE 20MEQ TAB .ER) 40 MEQ ASDIR PRN PO Potassium Phosphate (POTASSIUM PHOSPHATE) 15 MM ASDIR PRN IV Sodium Chloride (SODIUM CHLORIDE 0.9%) 100 ML Potassium Phosphate (POTASSIUM PHOSPHATE) 20 MM ASDIR PRN IV Sodium Chloride (SODIUM CHLORIDE 0.9%) 250 ML Potassium Phosphate (POTASSIUM PHOSPHATE) 30 MM ASDIR PRN IV Sodium Chloride (SODIUM CHLORIDE 0.9%) 250 ML Sodium Phosphate (SODIUM PHOSPHATE) 15 MMOL ASDI R PRN IV Sodium Chloride (SODIUM CHLORIDE 0.9%) 100 ML Sodium Phosphate (SODIUM PHOSPHATE) 20 MMOL ASDI R PRN IV Sodium Chloride (SODIUM CHLORIDE 0.9%) 250 ML Sodium Phosphate (SODIUM PHOSPHATE) 30 MMOL ASDI R PRN IV Sodium Chloride (SODIUM CHLORIDE 0.9%) 250 ML Acetaminophen (TYLENOL) 650 MG Q4H PRN PRN PO Ondansetron HCl (ZOFRAN) 4 MG Q4H PRN PRN IV Dextrose/Water (DEXTROSE 50% W SYRINGE) 25 ML DIR PRN IV (CKD) Dextrose/Water (DEXTROSE 50% W SYRINGE) 50 ML DIR PRN IV (CKD) Glucagon (GLUCAGON) 1 MG ASDIR PRN IM Insulin Human Lispro (HUMALOG) 0 AC HS SUBQ Miscellaneous Information (VANCOMYCIN PHARMACY T O DOSE) 1 EACH ASDIR IV (CKD) Nutrition assessment: The data set between the solid lines has been im ported from the dietitian's assessment. Any exceptions have been noted under Provider comments. BMI Calculated: 21.8 Nutrition related diagnosis: Nutrition diagnosis details: Nutrition problem: Nutrition etiology: Nutrition signs and symptoms: Nutrition prescription: Dietitian name: Assessment completed: Provider comments on imported dietitian assessme nt: Physical Exam General appearance: confused, awake Head/Eyes: atraumatic, normocephalic ENT: normal ear left, normal ear right, normal n ose Neck: full range of motion, no JVD Cardiovascular: normal heart sounds, regular rat e rhythm Respiratory: aerating well, clear to auscultatio n, symmetric expansion, no distress Abdomen: non-tender, normal bowel sounds, soft, no distention Extremities: no clubbing, no cyanosis, no edema 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, no sensory deficit s Considered stroke alert: yes Results Findings/Data: Laboratory Tests 03/27 03/27 03/27 03/27 03/26 1552 1116 0816 0358 2016 Chemistry Sodium (134 - 147 mEq/L) 138 Potassium (3.4 - 5.0 mEq/L) 3.7 Chloride (100 - 108 mEq/L) 108 Carbon Dioxide (21 - 33 mEq/l) 20 L Anion Gap (0 - 20) 14 BUN (7 - 18 mg/dL) 12 Creatinine (0.6 - 1.3 mg/dL) 0.8 Glomerular Filtr Rate (70 - 80) 69.0 L Glucose (70 - 110 mg/dL) 86 POC Glucose (70 - 110 MG/DL) 100 107 83 106 Calcium (8.0 - 10.5 mg/dL) 8.0 Total Bilirubin (0.0 - 1.0 mg/dL) 0.40 AST (15 - 37 IUnit/L) 14 L ALT (30 - 65 IUnit/L) < 7 L Total Alk Phosphatase (20 - 125 IUnit/L) 92 Total Protein (6.4 - 8.2 g/dL) 5.8 L Albumin (3.4 - 5.0 g/dL) 2.30 L Laboratory Tests 03/27 0358 Hematology WBC (4.5 - 11.0 x10 3/uL) 11.7 H RBC (3.54 - 5.02 x10 6/uL) 3.15 L Hgb (11.0 - 15.0 g/dL) 8.9 L Hct (33.0 - 45.0 %) 26.8 L MCV (81.0 - 99.0 fL) 85.1 MCH (27.0 - 33.0 pg) 28.3 MCHC (33.0 - 37.0 g/dL) 33.2 RDW (11.5 - 14.5 %) 15.8 H Plt Count (150 - 400 x10 3/uL) 252 MPV (7.0 - 9.0 fL) 10.6 H Neut % (Auto) (56.0 - 77.0 %) 70.5 Lymph % (Auto) (14.0 - 32.0 %) 19.3 Phelps % (Auto) (4.8 - 9.0 %) 6.5 Eos % (Auto) (0.3 - 3.7 %) 1.6 Baso % (Auto) (0.0 - 2.0 %) 0.3 Neut # (Auto) (2.0 - 7.6 x10 3/uL) 8.22 H Lymph # (Auto) (1.0 - 3.8 x10 3/uL) 2.25 Phelps # (Auto) (0.1 - 0.8 x10 3/uL) 0.76 Eos # (Auto) (0.0 - 0.2 x10 3/uL) 0.19 Baso # (Auto) (0.0 - 0.2 x10 3/uL) 0.04 Abs Immat Gran (auto) (0.00 - 0.03 x10 3/uL) 0. 21 H Add Manual Diff NO Immature Gran % (0.0 - 2.0 %) 1.8 Nucleated RBC % (0 - 0 %) 0.0 Nucleated RBCs # (Man) (0.0 - 0.1 x10 3/uL) 0.0 0 Diagnosis, Assessment Plan Consultants: cardiology, critical/intens ivist, hospitalist, infectious disease Plan discussed with: spouse/partner, [place] [facility] Free Text DxA P Notes Free text DxA P notes: 81 y/o with dementia/HTN/CAD/CHF/aortic regurge/CKD -stage III/DM who presents with persistent bacteremia (presumed MRSA) causi ng sepsis Infective endocarditis Recurrent gram positive bacteremia -at [facility] son she was on IV vancomycin IGLESIA showed vegetation in the pulmonary valve culture ....MRSA She will need PICC line after blood culture nega tive Septic shock - Resolved patient had septic shock at [facility] req uiring pressors and pt was resussitated with IVF and albumin. Continue to monitor pressure CKD - follow electrolytes, UOP HTN - Per cardiology DVT prophylaxis Lovenox subcu 03/26: on physical exam today aphasia which is grewal dden , code stroke called, CT head, no bleeding, discussed with ICC and neuro. ,her symptoms improved (TIA?) discussed with grandughter (Rosemary), and the pat myrnant's . BC again growing MRSA, discussed with Dr Lombardo, mónica valero on Teflaro and vanco neuro check, will keep in ICU 03/27: patient still not back to baseline, confus ed, MRI -ve for stroke, discussed with neuro, delirium? on Teflaro and v anc for Infective endocardititis. Quality: Gen Med Crit Care VTE Prophylaxis VTE prophylaxis initiated: yes Current Medications Current medication review: I attest that the foregoing medication list in t he medical record is true, accurate, and complete to the best of my knowled ge. Advanced Care Plan 65 or Older Discussed with: surrogate decis. maker Discussion included: code status Electronically Signed by Radha Wisdom MD on at 2020 RPT #:[id number] END OF REPORT 2022-03-27 14:13:00-00:00 [facility] ([facility]) Cardiology Progress Note REPORT#:[id number] REPORT STATUS: Signed DATE:03/27/22 TIME: 1413 PATIENT: MICHAELA MATIAS UNIT #: [id number] ROOM/BED: [place] [address] : 41 AGE: 81 SEX: F ATTEND: Josiane Wisdom MD ADM AUTHOR: Sherry Gonsales MD * ALL edits or amendments must be made on the [employer] document * Objective General VS/I O: 24 hour I O ending at 0700: 03/27 0700 03/26 1900 Intake Total 200.00 Output Total 150 350 Balance 50.00 -350 Intake, IV 200.00 Number 1 Bowel Movements Output, Urine 150 350 Patient 51.71 kg Weight Vital Signs: Date Time Temp Pulse Resp B/P B/P Pulse O2 O2 F low FiO2 Mean Ox Delivery Rate 03/27 1301 67 21 178/74 106 97 03/27 1201 62 29 120/59 85 96 03/27 1101 65 30 129/61 88 97 03/27 1000 69 27 140/65 94 97 03/27 0901 65 46 133/60 87 96 03/27 0801 70 38 143/65 94 96 03/27 0800 36.8 03/27 0728 96 Room air 03/27 0701 70 18 170/70 101 97 03/27 0600 75 23 166/70 100 96 03/27 0500 76 96 03/27 0400 36.7 03/27 0400 74 172/70 101 95 03/27 0300 72 96 03/27 0200 73 97 03/27 0100 72 161/67 96 96 03/27 0000 36.7 03/27 0000 76 148/66 95 96 03/26 2300 74 157/66 95 97 03/26 2200 78 154/66 95 03/26 2101 81 18 175/70 101 96 03/26 2100 78 96 03/26 2000 36.8 09 2000 78 22 166/70 101 97 03/26 1946 80 24 169/75 108 98 03/26 1931 82 03/26 1915 81 165/65 94 96 03/26 1901 79 181/72 103 97 03/26 1900 79 96 03/26 1600 36.6 PATIENT WEIGHT: Weight (lb): 114 Weight (oz): 10.25 Weight (kg): 51.71 Medications: Active Meds + DC'd Last 24 Hrs Memantine (NAMENDA) 10 MG DAILY PO Donepezil HCl (ARICEPT) 5 MG BEDTIME PO (DC) Donepezil HCl (ARICEPT) 10 MG BEDTIME PO Vancomycin HCl (VANCOMYCIN HCL) 500 MG Q24H IV Sodium Chloride (SODIUM CHLORIDE 0.9% 100 ML) 1 00 ML Ceftaroline Fosamil (TEFLARO) 600 MG Q12H IV Sodium Chloride (SODIUM CHLORIDE 0.9%) 100 ML Metoprolol Tartrate (LOPRESSOR) 25 MG Q12HR PO Acetaminophen (TYLENOL) 650 MG Q4H PRN PRN RECTA L Hydralazine HCl (APRESOLINE) 10 MG Q6H PRN PRN I V Enoxaparin Sodium (lovENOX) 30 MG Q24H SUBQ Mupirocin (BACTROBAN 2% 22 GM OINTMENT) 1 APPLIC BID NASAL Calcium Gluconate/Sodium Chloride (Calcium Gluco alexia 1 GM/NS 50 mL) 50 ML ASDIR PRN IV Calcium Gluconate/Sodium Chloride (Calcium Gluco alexia 2 GM/NS 100 mL) 100 ML ASDIR PRN IV Lactated Ringer's (LACTATED RINGERS) 1,000 ML GILLIAN MARTY IV Magnesium Sulfate (MAGNESIUM SULFATE 2GM/SWFI 50 ML) 50 ML ASDIR PRN IV Potassium Chloride (KCL 20MEQ/SWFI 100ML) 100 ML ASDIR PRN IV Potassium Chloride (POTASSIUM CHLORIDE 20MEQ TAB .ER) 20 MEQ ASDIR PRN PO Potassium Chloride (POTASSIUM CHLORIDE 20MEQ TAB .ER) 40 MEQ ASDIR PRN PO Potassium Phosphate (POTASSIUM PHOSPHATE) 15 MM ASDIR PRN IV Sodium Chloride (SODIUM CHLORIDE 0.9%) 100 ML Potassium Phosphate (POTASSIUM PHOSPHATE) 20 MM ASDIR PRN IV Sodium Chloride (SODIUM CHLORIDE 0.9%) 250 ML Potassium Phosphate (POTASSIUM PHOSPHATE) 30 MM ASDIR PRN IV Sodium Chloride (SODIUM CHLORIDE 0.9%) 250 ML Sodium Phosphate (SODIUM PHOSPHATE) 15 MMOL ASDI R PRN IV Sodium Chloride (SODIUM CHLORIDE 0.9%) 100 ML Sodium Phosphate (SODIUM PHOSPHATE) 20 MMOL ASDI R PRN IV Sodium Chloride (SODIUM CHLORIDE 0.9%) 250 ML Sodium Phosphate (SODIUM PHOSPHATE) 30 MMOL ASDI R PRN IV Sodium Chloride (SODIUM CHLORIDE 0.9%) 250 ML Acetaminophen (TYLENOL) 650 MG Q4H PRN PRN PO Ondansetron HCl (ZOFRAN) 4 MG Q4H PRN PRN IV Dextrose/Water (DEXTROSE 50% W SYRINGE) 25 ML DIR PRN IV (CKD) Dextrose/Water (DEXTROSE 50% W SYRINGE) 50 ML DIR PRN IV (CKD) Glucagon (GLUCAGON) 1 MG ASDIR PRN IM Insulin Human Lispro (HUMALOG) 0 AC HS SUBQ Miscellaneous Information (VANCOMYCIN PHARMACY T O DOSE) 1 EACH ASDIR IV (CKD) Physical Exam General appearance: sleeping comfortably Neck: full range of motion, non-tender, normal thyroid, supple/no meningismus, no bruit/NL carotids, no JVD, no lymphadenopathy , no masses or swelling Cardiovascular: CV assessment: regular rate and rhythm Respiratory: clear to auscultation, no distress Abdomen: non-tender, normal bowel sounds , no distention, no guarding, no mass/ organomegaly, no pulsatile mass, no rebound Upper extremity: UE assessment: normal capillary refill, no ammy a Lower extremity: LE assessment: normal capillary refill, no ammy a Results Findings/Data: Laboratory Tests 03/27 03/27 03/27 03/26 03/26 1116 0816 8 2016 1716 Chemistry Sodium (134 - 147 mEq/L) 138 Potassium (3.4 - 5.0 mEq/L) 3.7 Chloride (100 - 108 mEq/L) 108 Carbon Dioxide (21 - 33 mEq/l) 20 L Anion Gap (0 - 20) 14 BUN (7 - 18 mg/dL) 12 Creatinine (0.6 - 1.3 mg/dL) 0.8 Glomerular Filtr Rate (70 - 80) 69.0 L Glucose (70 - 110 mg/dL) 86 POC Glucose (70 - 110 MG/DL) 107 83 106 96 Calcium (8.0 - 10.5 mg/dL) 8.0 Total Bilirubin (0.0 - 1.0 mg/dL) 0.40 AST (15 - 37 IUnit/L) 14 L ALT (30 - 65 IUnit/L) < 7 L Total Alk Phosphatase (20 - 125 IUnit/L) 92 Total Protein (6.4 - 8.2 g/dL) 5.8 L Albumin (3.4 - 5.0 g/dL) 2.30 L Laboratory Tests 03/27 0358 Hematology WBC (4.5 - 11.0 x10 3/uL) 11.7 H RBC (3.54 - 5.02 x10 6/uL) 3.15 L Hgb (11.0 - 15.0 g/dL) 8.9 L Hct (33.0 - 45.0 %) 26.8 L MCV (81.0 - 99.0 fL) 85.1 MCH (27.0 - 33.0 pg) 28.3 MCHC (33.0 - 37.0 g/dL) 33.2 RDW (11.5 - 14.5 %) 15.8 H Plt Count (150 - 400 x10 3/uL) 252 MPV (7.0 - 9.0 fL) 10.6 H Neut % (Auto) (56.0 - 77.0 %) 70.5 Lymph % (Auto) (14.0 - 32.0 %) 19.3 Phelps % (Auto) (4.8 - 9.0 %) 6.5 Eos % (Auto) (0.3 - 3.7 %) 1.6 Baso % (Auto) (0.0 - 2.0 %) 0.3 Neut # (Auto) (2.0 - 7.6 x10 3/uL) 8.22 H Lymph # (Auto) (1.0 - 3.8 x10 3/uL) 2.25 Phelps # (Auto) (0.1 - 0.8 x10 3/uL) 0.76 Eos # (Auto) (0.0 - 0.2 x10 3/uL) 0.19 Baso # (Auto) (0.0 - 0.2 x10 3/uL) 0.04 Abs Immat Gran (auto) (0.00 - 0.03 x10 3/uL) 0. 21 H Add Manual Diff NO Immature Gran % (0.0 - 2.0 %) 1.8 Nucleated RBC % (0 - 0 %) 0.0 Nucleated RBCs # (Man) (0.0 - 0.1 x10 3/uL) 0. 00 Diagnosis, Assessment Plan Problem List/A P: 1. MRSA bacteremia 2. Sepsis 3. Lactic acidosis 4. Infective endocarditis of pulmonary valve Consultants: cardiology, critical/intens ivist, hospitalist, infectious disease Free Text DxA P Notes Free Text DxA P Notes: 03/24 awake, stable BP , IGLESIA showed veg on pulm valve, ID was informed. IV abx. 03/25 doing well, stable, on IV abx, high BP will star t med, ok to go to tele. 03/26 awake, doing ok, had TIA yes terday, CT was ok, will get echo with bubble study, on IV abx. 03/27 resting, confusion and dementia worse, r estart meds, ok to go to tele, cont IV abx, no PFO on echo, EF is better. Electronically Signed by Sherry Gonsales MD on 0 03/27/22 at 1414 RPT #:[id number] END OF REPORT 2022-03-27 12:11:00-00:00 [facility] Critical Care Progress Note REPORT#:[id number] REPORT STATUS: Signed DATE:03/27/22 TIME: 1211 PATIENT: MICHAELA MATIAS UNIT #: [id number] ROOM/BED: [place] [address] : 41 AGE: 81 SEX: F ATTEND: Trevon Kimball MD ADM AUTHOR: Bruce Durham MD * ALL edits or amendments must be made on the [employer] document * Subjective Chief complaint: MRSA bacteremia Pulmonary valve vegetation/endocarditis Accelerated hypertension Aphasia Sinus tachycardia History of dementia Anemia of chronic disease HPI: Patient seen and examined in medical ICU room #3 10 this morning and discussed during the rounds. No acute events reported over night. She continues on dual antibiotic therapy for MRSA bacteremia. Patient is on vancomycin and ceftaroline. Vital signs are stable with heart r ate of 65 in sinus rhythm, blood pressure 140/65 mmHg, respiratory rate 30 and pulse ox 98% on room air. She is not on any drips. Will check blood cultur es x2 and if negative a PICC line will be placed and patient be transferred t o telemetry floor. Patient to be started back on Aricept 1 0 mg p.o. daily and Namenda 10 mg PO daily as well. OT PT eval and treat to be ordered. Michaela Matias is a 81-year-old female, w ith past medical history of coronary artery disease, his tory of CABG in the , diabetes mellitus type 2, hypertension, dementia, stage III CKD, who was t ransferred from [facility] for septic shock. Patient was recently hospitalized at that hospital for chest pain at that time and sh e was offered to have cardiac catheterization which she declined. Patient was called back as blood cultures done during that admission w ere positive for MRSA so she was hospitalized again and started on IV antibiotics for 1 week and then discharged on antibiotics at home for another 2 weeks. However, patient prese nted again to the emergency department at [facility] as he started to feel weak again and was spiking fevers again. Patient had a femoral central venous cath eter inserted and was started on Levophed there. On arrival to our ICU, robbie t noted to have normal blood pressure not requiring pressors. Overnight, tex ent started having chills and rigors. Patient is full code. Patient reports: No: diarrhea, fever, headache, shortness of kika th, vomiting. Nursing reports: No: agitated, chest pain, confusion, delirium, s hortness of breath, vomiting. Review of Systems Constitutional: Reports: generalized weakness. Denies: fatigue, fever. Skin: Denies: diaphoresis, ecchymosis. Allergy/Immun: Denies: anaphylaxis, hives. Eyes: Denies: redness, discharge. ENT: Denies: nose bleeding, throat swelling, tongue s welling. Respiratory: Denies: hemoptysis, non productive cough, pneumo rasheeda. Cardiovascular: Denies: chest pain, edema. GI: Denies: hematemesis, hematochezia. : Denies: hematuria, nocturia. Heme: Denies: bleeding, bruising. Endocrine: Denies: polydipsia, polyphagia. Neuro: Reports: weakness. Denies: bladder dysfunction, bowel dysfunction, change in LOC, confusion, dizziness, seizure. Psych: Denies: agitation, anxiety, hostile, insomnia. Objective General VS/I O Last Documented: Result Date Time Pulse Ox 96 03/27 1700 B/P 147/67 03/27 1700 B/P Mean 97 03/27 1700 Pulse 66 03/27 1700 Resp 30 03/27 1700 Temp 36.8 03/27 0800 O2 Delivery Room air 03/27 0728 O2 Flow Rate 2 03/24 0800 24 hour I O ending at 0700: 03/27 0700 03/26 1900 Intake Total 200.00 Output Total 150 350 Balance 50.00 -350 Intake, IV 200.00 Number 1 Bowel Movements Output, Urine 150 350 Patient 51.71 kg Weight PATIENT WEIGHT: Weight (lb): 114 Weight (oz): 10.25 Weight (kg): 51.71 Medications: Active Meds + DC'd Last 24 Hrs Memantine (NAMENDA) 10 MG DAILY PO Donepezil HCl (ARICEPT) 5 MG BEDTIME PO (DC) Donepezil HCl (ARICEPT) 10 MG BEDTIME PO Vancomycin HCl (VANCOMYCIN HCL) 500 MG Q24H IV Sodium Chloride (SODIUM CHLORIDE 0.9% 100 ML) 1 00 ML Ceftaroline Fosamil (TEFLARO) 600 MG Q12H IV Sodium Chloride (SODIUM CHLORIDE 0.9%) 100 ML Metoprolol Tartrate (LOPRESSOR) 25 MG Q12HR PO Acetaminophen (TYLENOL) 650 MG Q4H PRN PRN RECTA L Hydralazine HCl (APRESOLINE) 10 MG Q6H PRN PRN I V Enoxaparin Sodium (lovENOX) 30 MG Q24H SUBQ Mupirocin (BACTROBAN 2% 22 GM OINTMENT) 1 APPLIC BID NASAL Calcium Gluconate/Sodium Chloride (Calcium Gluco alexia 1 GM/NS 50 mL) 50 ML ASDIR PRN IV Calcium Gluconate/Sodium Chloride (Calcium Gluco alexia 2 GM/NS 100 mL) 100 ML ASDIR PRN IV Lactated Ringer's (LACTATED RINGERS) 1,000 ML GILLIAN MARTY IV Magnesium Sulfate (MAGNESIUM SULFATE 2GM/SWFI 50 ML) 50 ML ASDIR PRN IV Potassium Chloride (KCL 20MEQ/SWFI 100ML) 100 ML ASDIR PRN IV Potassium Chloride (POTASSIUM CHLORIDE 20MEQ TAB .ER) 20 MEQ ASDIR PRN PO Potassium Chloride (POTASSIUM CHLORIDE 20MEQ TAB .ER) 40 MEQ ASDIR PRN PO Potassium Phosphate (POTASSIUM PHOSPHATE) 15 MM ASDIR PRN IV Sodium Chloride (SODIUM CHLORIDE 0.9%) 100 ML Potassium Phosphate (POTASSIUM PHOSPHATE) 20 MM ASDIR PRN IV Sodium Chloride (SODIUM CHLORIDE 0.9%) 250 ML Potassium Phosphate (POTASSIUM PHOSPHATE) 30 MM ASDIR PRN IV Sodium Chloride (SODIUM CHLORIDE 0.9%) 250 ML Sodium Phosphate (SODIUM PHOSPHATE) 15 MMOL ASDI R PRN IV Sodium Chloride (SODIUM CHLORIDE 0.9%) 100 ML Sodium Phosphate (SODIUM PHOSPHATE) 20 MMOL ASDI R PRN IV Sodium Chloride (SODIUM CHLORIDE 0.9%) 250 ML Sodium Phosphate (SODIUM PHOSPHATE) 30 MMOL ASDI R PRN IV Sodium Chloride (SODIUM CHLORIDE 0.9%) 250 ML Acetaminophen (TYLENOL) 650 MG Q4H PRN PRN PO Ondansetron HCl (ZOFRAN) 4 MG Q4H PRN PRN IV Dextrose/Water (DEXTROSE 50% W SYRINGE) 25 ML DIR PRN IV (CKD) Dextrose/Water (DEXTROSE 50% W SYRINGE) 50 ML DIR PRN IV (CKD) Glucagon (GLUCAGON) 1 MG ASDIR PRN IM Insulin Human Lispro (HUMALOG) 0 AC HS SUBQ Miscellaneous Information (VANCOMYCIN PHARMACY T O DOSE) 1 EACH ASDIR IV (CKD) Physical Exam General appearance: no acute distress, pleasant, no respiratory distress Head/eyes: atraumatic, clear cornea, normocephal ic, PERRL ENT: moist mucosal membranes Neck: non-tender, normal thyroid, no JVD, no mas ses or swelling Cardiovascular: tachycardia, normal capillary re fill, normal heart sounds Respiratory: aerating well, clear to auscultatio n, symmetric expansion, no distress Abdomen: soft, non-tender, no distention, no gua rding Extremities: moves all, normal capillary refill, no clubbing, no cyanosis, no edema 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, no motor defic its Considered stroke alert: yes Skin: dry, intact, normal color Psychiatry: unable to evaluate Results Findings/data: Laboratory Tests 03/27 03/27 03/27 03/27 03/26 1552 1116 0816 0358 2017 Chemistry Sodium (134 - 147 mEq/L) 138 Potassium (3.4 - 5.0 mEq/L) 3.7 Chloride (100 - 108 mEq/L) 108 Carbon Dioxide (21 - 33 mEq/l) 20 L Anion Gap (0 - 20) 14 BUN (7 - 18 mg/dL) 12 Creatinine (0.6 - 1.3 mg/dL) 0.8 Glomerular Filtr Rate (70 - 80) 69.0 L Glucose (70 - 110 mg/dL) 86 POC Glucose (70 - 110 MG/DL) 100 107 83 106 Calcium (8.0 - 10.5 mg/dL) 8.0 Total Bilirubin (0.0 - 1.0 mg/dL) 0.40 AST (15 - 37 IUnit/L) 14 L ALT (30 - 65 IUnit/L) < 7 L Total Alk Phosphatase (20 - 125 IUnit/L) 92 Total Protein (6.4 - 8.2 g/dL) 5.8 L Albumin (3.4 - 5.0 g/dL) 2.30 L Laboratory Tests 03/27 0358 Hematology WBC (4.5 - 11.0 x10 3/uL) 11.7 H RBC (3.54 - 5.02 x10 6/uL) 3.15 L Hgb (11.0 - 15.0 g/dL) 8.9 L Hct (33.0 - 45.0 %) 26.8 L MCV (81.0 - 99.0 fL) 85.1 MCH (27.0 - 33.0 pg) 28.3 MCHC (33.0 - 37.0 g/dL) 33.2 RDW (11.5 - 14.5 %) 15.8 H Plt Count (150 - 400 x10 3/uL) 252 MPV (7.0 - 9.0 fL) 10.6 H Neut % (Auto) (56.0 - 77.0 %) 70.5 Lymph % (Auto) (14.0 - 32.0 %) 19.3 Phelps % (Auto) (4.8 - 9.0 %) 6.5 Eos % (Auto) (0.3 - 3.7 %) 1.6 Baso % (Auto) (0.0 - 2.0 %) 0.3 Neut # (Auto) (2.0 - 7.6 x10 3/uL) 8.22 H Lymph # (Auto) (1.0 - 3.8 x10 3/uL) 2.25 Phelps # (Auto) (0.1 - 0.8 x10 3/uL) 0.76 Eos # (Auto) (0.0 - 0.2 x10 3/uL) 0.19 Baso # (Auto) (0.0 - 0.2 x10 3/uL) 0.04 Abs Immat Gran (auto) (0.00 - 0.03 x10 3/uL) 0. 21 H Add Manual Diff NO Immature Gran % (0.0 - 2.0 %) 1.8 Nucleated RBC % (0 - 0 %) 0.0 Nucleated RBCs # (Man) (0.0 - 0.1 x10 3/uL) 0.0 0 Laboratory Tests 03/27/22 0358: [Embedded Image Not Available] Microbiology: 03/26 300 BLOOD: Blood Culture - RES 03/26 300 BLOOD: Blood Culture - RES Results: labs reviewed, vital signs revi ewed, rhythm personally rev'd, current med profile rev'd Diagnosis, Assessment Plan Free text A P: Problem list: MRSA bacteremia Sepsis Pulmonary valve vegetation/endocarditis Aphasia Accelerated hypertension Sinus tachycardia History of Dementia Anemia of chronic disease Deconditioning and debility Assessment and Plan: Neuro: Patient has dementia. Monitor. Cardiogram Patient has history of coronary artery disease s tatus post CABG in 1989. Now, patient is hemodynamically stable. For IGLESIA tomorrow as per cardiology to evaluate f or endocarditis. Pulmonary: Patient is hypoxic. Chest x-ray is not impressiv e. Provide supplemental oxygen as needed to maintain oxygen saturation between 92 to 95%. GI: Liver enzymes were elevated on admission, monito r. Tolerating p.o. diet. Renal: Patient reported to have CKD stage III. Creatini ne normal on admission. Monitor BUN, creatinine. Monitor intake output. Monitor electrolytes and replace as needed. Endocrine: Patient has diabetes mellitus managed with diet. Monitor blood sugar. ID: Patient has MRSA bacteremia that failed 3 weeks of IV antibiotic treatment. Patient also has new onset CHF and new mitral re gurgitation suspicious for infective endocarditis. Patient for IGLESIA tomorrow morning. We will start the patient on vancomycin and cefe pime for now. Will obtain blood cultures and MRSA screen. Heme-onc: Patient has normocytic anemia, monitor and trans fuse as needed. Lovenox for DVT prophylaxis. Critical care time 45 minutes excluding any proc edure time. 03/25/2022 Assessment and plan: Patient seen and examined in medical ICU room #310 and discussed during MDR this morning. She was admitted with MRSA bact eremia and vegetation on the pulmonary valve. Underwent contrast esophageal echocardiog mei that revealed vegetation. She has been eating poorly. Speech cleared her f or pur ed diet. Patient has peripheral access. Central venous catheter from the femoral vein has been discontinued. No history of prosthesis implantat ion. Patient is on vancomycin and ceftazidime with dual antibiotic coverage fo r MRSA. ID is following. Will reculture in the next 24 hours. Later in the day patient developed aphasia in the backdrop of accelerated hypertension and tac hycardia. She was given metoprolol 5 mg IV to bring the heart rate down from 148 203 and blood pressure from 192/112-137/62 mmHg. There was concern for watershed infarct. CT head without contrast, CT angiogram of the head and n bruce and CTA PE protocol were performed that were inconclusive. At the end of the study patient was able to phonate and express her name. She remains nonfoc al. Was able to move all 4 extremities. No facial droop or drift was identi fied. Michaela Matias is a 81-year-old female, w ith past medical history of coronary artery disease, his tory of CABG in the , diabetes mellitus type 2, hypertension, dementia, stage III CKD, who was t ransferred from [facility] [place] for septic shock. Patient was recently hospitalized at that hospital for chest pain at that time and sh e was offered to have cardiac catheterization which she declined. Patient was called back as blood cultures done during that admission w ere positive for MRSA so she was hospitalized again and started on IV antibiotics for 1 week and then discharged on antibiotics at home for another 2 weeks. However, patient prese nted again to the emergency department at [facility] as he started to feel weak again and was spiking fevers again. Patient had a femoral central venous cath eter inserted and was started on Levophed there. On arrival to our ICU, patien t noted to have normal blood pressure not requiring pressors. Overnight, tex ent started having chills and rigors. Patient is full code. Patient was admitted with MRSA bacteremia and fo und to have pulmonary valve vegetation Patient developed significant tachycardia and hy pertensive urgency Tachycardia and hypertensive urgency was treated with metoprolol 5 mg IV x1 dose Heart rate was 140 with a blood pressure of 190/ 112 mmHg 8 responded to metoprolol IV and subsequent hear t rate was 102 with a blood pressure of 137/62 mmHg Patient developed aphasia Concern for watershed infarct versus paradoxical CVA No mention of PFO on the IGLESIA Code stroke was called Patient was seen by Dr. Barahona CT head without contrast, CT A of the head and neck and CT chest PE protocol were ordered No evidence of stroke or pulmonary embolism/sept ic embolism was found Patient continues on 2 antibiotics including van comycin and ceftaradine Sodium is improved to 141 Magnesium is low at 1.6 and patient received 2 g of magnesium sulfate Patient is on room air Femoral central venous catheter has been removed Patient has peripheral access We will recheck blood cultures in the next 24 ho urs No history of prosthesis or devices Speech evaluation performed Patient is okay for pur ed diet Eating is poor Follow neuro status with neurochecks every hour DVT prophylaxis Bruce Durham MD [facility] 03/25/2022 6.41 PM 03/26/2022 Patient seen and examined in medical ICU room #310 and discussed during MDR this morning. Patient had significant neurological ep isode yesterday with aphasia after she received metoprolol 5 mg IV for accele rated hypertension and tachycardia at 140. Blood pressure was elevated at 190/[address] head without contrast, CTA head and neck and CT chest PE protocol all were inconclusive for any acute pathology. Patient im proved and was able to verbalize after the investigations. She was admi tted with MRSA bacteremia and vegetation on the pulmonary valve. Underwent contrast esophageal echocardiogram that revealed vegetation. She has been eating po hannah. Speech cleared her for pur ed diet. Patient has peripheral access. Cent ral venous catheter from the femoral vein has been discontinued. No history o f prosthesis implantation. Patient is on Vancomycin and Cefteradine with dual antibiotic coverage for MRSA. ID is following. Will reculture in the next 24 hours. Michaela Matias is a 81-year-old female, w ith past medical history of coronary artery disease, his tory of CABG in the , diabetes mellitus type 2, hypertension, dementia, stage III CKD, who was t ransferred from [facility] [place] for septic shock. Patient was recently hospitalized at that hospital for chest pain at that time and sh e was offered to have cardiac catheterization which she declined. Patient was called back as blood cultures done during that admission w ere positive for MRSA so she was hospitalized again and started on IV antibiotics for 1 week and then discharged on antibiotics at home for another 2 weeks. However, patient prese nted again to the emergency department at [facility] as he started to feel weak again and was spiking fevers again. Patient had a femoral central venous cath eter inserted and was started on Levophed there. On arrival to our ICU, robbie t noted to have normal blood pressure not requiring pressors. Overnight, [place] started having chills and rigors. Patient is full code. Patient continues to have a stable neurological status Developed aphasia after receiving metoprolol 5 m g IV to treat accelerated hypertension and sinus tachycardia Heart rate was elevated at 140s and blood pressu re was 190s/112 mmHg in the afternoon yesterday Patient became aphasic and underwent CT head without contrast, CTA of the head and neck and CT chest PE protocol All of the above investigations were inconclusiv e for any acute pathology Patient regained speech and was fluent after the investigations on her way back to the medical ICU She is on every 2 neurochecks Continues to be on dual antibiotics for MRSA karly teremia and pulmonary valve endocarditis Febrile central venous catheter has been removed Patient has peripheral line Draw 2 sets of blood cultures tomorrow, if negat mele we will place PICC line Patient will receive antibiotics for 6 weeks tot al Infectious diseases following the patient Vital signs are stable with a heart rate of 75 in sinus rhythm, blood pressure 135/63 mmHg, respiratory rate 32, pulse ox 97% Patient is status post IGLESIA that did not reveal a ny patent foramina well However it was positive for pulmonary valve endo carditis GI prophylaxis Bruce Durham MD [facility] 03/26/2022 5.27 PM 03/27/2022 Patient seen and examined in medical ICU room #3 10 this morning and discussed during the rounds. No acute events reported over night. She continues on dual antibiotic therapy for MRSA bacteremia. Patient is on vancomycin and ceftaroline. Vital signs are stable with heart rate of 65 in sinus rhythm, blood pressure 140/65 mmHg, respiratory rate 30 and pulse ox 98% on room air. She is not on any drips. Will check blood cultur es x2 and if negative a PICC line will be placed and patient be transferred t o telemetry floor. Patient to be started back on Aricept 1 0 mg p.o. daily and Namenda 10 mg PO daily as well. OT PT eval and treat to be ordered. Michaela Matias is a 81-year-old female, w ith past medical history of coronary artery disease, his tory of CABG in the , diabetes mellitus type 2, hypertension, dementia, stage III CKD, who was t ransferred from [facility] [place] for septic shock. Patient was recently hospitalized at that hospital for chest pain at that time and sh e was offered to have cardiac catheterization which she declined. Patient was called back as blood cultures done during that admission w ere positive for MRSA so she was hospitalized again and started on IV antibiotics for 1 week and then discharged on antibiotics at home for another 2 weeks. However, patient prese nted again to the emergency department at [facility] as he started to feel weak again and was spiking fevers again. Patient had a femoral central venous cath eter inserted and was started on Levophed there. On arrival to our ICU, robbie t noted to have normal blood pressure not requiring pressors. Overnight, tex cox started having chills and rigors. Patient is full code. Patient continues in the ICU No acute events reported overnight Vital signs are stable Patient is off vasopressors On room air now Has significant dementia Start back on Namenda 10 mg PO daily and Aricept 10 mg PO daily each Order OT PT eval and treat Patient continues on dual an tibiotic therapy with ceftaroline and vancomycin for MRSA bacteremia Check blood cultures x2, if negative faye l place PICC line for 6 weeks of total antibiotic therapy for MRSA bacteremia She will be transferred to the telemetry floor Has significant debility Has anemia of chronic diseas e. Does not meet transfusion threshold at this time DVT prophylaxis Bruce Durham MD [facility] 03/27/2022 8.13 PM Consultants: cardiology, critical/intens ivist, hospitalist, infectious disease Code status: full code Plan discussed with: family, nurse, interdisc ca re team Critical care time: Minutes: 35 Quality: Gen Med Crit Care VTE Prophylaxis VTE prophylaxis initiated: yes Current Medications Current medication review: I attest that the foregoing medication list in t medical record is true, accurate, and complete to the best of my knowled ge. Advanced Care Plan 65 or Older Discussed with: surrogate decis. maker Discussion included: code status Electronically Signed by Bruce Durham MD on 03/17 09/07 at 2041 [facility] #:[id number] END OF REPORT 2022-03-26 21:15:00-00:00 [facility] ([facility]) Hospitalist Progress Note REPORT#:[id number] REPORT STATUS: Signed DATE:03/26/22 TIME: 2114 PATIENT: MICHAELA MATIAS UNIT #: [id number] ROOM/BED: [place] [address] : 41 AGE: 81 SEX: F ATTEND: Josiane Wisdom MD ADM AUTHOR: Radha Wisdom MD * ALL edits or amendments must be made on the [employer]/computer document * Subjective Chief complaint: patient was aphasic during my exam, which is new for her, code stroke called Objective Physical Exam Head/Eyes: atraumatic, normocephalic ENT: normal ear left, normal ear right, normal n ose Neck: full range of motion, no JVD Cardiovascular: normal heart sounds, regular rat e rhythm Respiratory: aerating well, clear to auscultatio n, symmetric expansion, no distress Abdomen: non-tender, normal bowel sounds, soft, no distention Extremities: no clubbing, no cyanosis, no edema 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 Considered stroke alert: yes Diagnosis, Assessment Plan Consultants: cardiology, critical/intens ivist, hospitalist, infectious disease Free Text DxA P Notes Free text DxA P notes: 81 y/o with dementia/HTN/CAD/CHF/aortic regurge/CKD -stage III/DM who presents with persistent bacteremia (presumed MRSA) causi ng sepsis Infective endocarditis Recurrent gram positive bacteremia -at [place] [facility] son she was on IV vancomycin IGLESIA showed vegetation in the pulmonary valve culture ....MRSA She will need PICC line after blood culture nega tive Septic shock - Resolved patient had septic shock at [place] [facility] req uiring pressors and pt was resussitated with IVF and albumin. Continue to monitor pressure CKD - follow electrolytes, UOP HTN - Per cardiology DVT prophylaxis Lovenox subcu 03/25: on physical exam today aphasia which is shirley den , code stroke called, CT head, no bleeding, discussed with ICC an d neuro. ,her symptoms improved (TIA?) discussed with grandughter (Rosemary), and the pat vito's . BC again growing MRSA, discussed with mónica Napoles on Teflaro and vanco neuro check, will keep in ICU Quality: Gen Med Crit Care VTE Prophylaxis VTE prophylaxis initiated: yes Current Medications Current medication review: I attest that the foregoing medication list in t medical record is true, accurate, and complete to the best of my knowled ge. Advanced Care Plan 65 or Older Discussed with: surrogate decis. maker Discussion included: code status Electronically Signed by Radha Wisdom MD on at 2014 RPT #:[id number] END OF REPORT 2022-03-26 20:11:00-00:00 [id number] [place] [id number] PATIENT NAME: MICHAELA MATIAS ADMIT DATE: 03/23/22 ACCOUNT NO: [id number] ROOM NO: [facility] AGE: 81 REPORT TYPE: eECHOCARDIOGRAM REPORT SEX: F ADMITTING PHYSICIAN:Radha Wisdom MD ATTENDING PHYSICIAN:Radha Wisdom MD *[place] [address] Limited Transthoracic Echocardiogram Patient: Michaela Matias Study Date: 03/26/2022 BP: Location: [facility] URN: [id number] : 1940 Age: 81 Height: / Gender: F Weight: / BMI/BSA: / *Ordering Physician: * Sherry Gonsales MD *Interpreting Physician: * Sherry Gonsales MD *Business Insurance Agent: * Nava Stokes Indications: CVA. Study data: Transthoracic echocardiogram, limite d study. Limited 2D and limited spectral Doppler. Location: Bedside. Patient room number: M310. Findings Right ventricle: There is a thrombus visualized in the right ventricular outflow tract. Atrial septum: No defect or patent foramen ovale is identified. Conclusions Summary: 1. Right ventricle: There is a thrombus visualiz ed in the right ventricular outflow tract. PATIENT NAME: MICHAELA MATIAS 42 2. Atrial septum: No defect or patent foramen ov oina is identified. Prepared and electronically signed by Sherry Gonsales MD 03/26/2022 20:10 at 2010 PATIENT NAME: MICHAELA MATIAS 1 2022-03-26 10:27:00-00:00 [facility] Cardiology Progress Note REPORT#:[id number] REPORT STATUS: Signed DATE:03/26/22 TIME: 1027 PATIENT: MICHAELA MATIAS UNIT #: [id number] ROOM/BED: [facility]10-1 : 41 AGE: 81 SEX: F ATTEND: Josiane Wisdom MD ADM AUTHOR: Sherry Gonsales MD * ALL edits or amendments must be made on the el [employer]/computer document * Objective General VS/I O: 24 hour I O ending at 0700: 03/26 0700 03/25 1900 Intake Total 750.00 1105.00 Output Total 700 350 Balance 50.00 755.00 Intake, IV 350.00 265.00 Intake, Oral 400 720 Intake, Oral 120 Supplement Number 3 Incontinent Voids Number Voids 3 Output, Urine 700 350 Vital Signs: Date Time Temp Pulse Resp B/P B/P Pulse O2 O2 F low FiO2 Mean Ox Delivery Rate 03/26 0700 74 40 159/69 99 99 09/10 0645 71 154/65 94 09/10 0630 72 20 159/69 99 95 09/10 0615 71 22 148/68 98 95 09/10 0600 74 157/68 98 97 09/10 0545 69 31 144/65 94 95 09/10 0531 71 28 147/63 90 96 09/10 0530 71 23 96 09/10 0516 73 29 104 97 09/10 0515 70 27 96 09/10 0500 70 23 96 09/10 0445 69 28 98 09/10 0430 68 39 98 09/10 0415 67 39 97 09/10 0400 36.2 09/10 0400 69 98 09/10 0345 68 28 98 09/10 0339 66 41 97 09/10 0330 67 31 95 09/10 0315 73 26 97 09/10 0300 71 23 99 09/10 0245 69 29 98 09/10 0230 26 97 09/10 0222 22 148/66 95 97 09/10 0215 74 30 97 09/10 0200 69 25 09/10 0145 82 28 98 09/10 0130 74 24 100 09/10 0115 74 20 100 09/10 0100 67 24 113/52 75 100 09/10 0045 69 35 140/64 92 100 09/10 0030 70 32 121/58 84 98 09/10 0015 71 33 125/56 81 99 09/10 0000 36.5 09/10 0000 72 38 120/58 84 99 09/09 2346 74 32 123/59 81 98 09/09 2345 73 40 98 09/09 2330 71 40 137/60 86 98 09/09 2315 66 132/61 88 99 09/09 2300 75 38 129/60 86 98 09/09 2245 67 42 120/58 84 98 09/09 2230 67 123/58 84 98 09/09 2215 68 38 130/54 85 98 09/09 2200 76 125/58 83 99 09/09 2146 73 128/61 88 99 09/09 2145 73 39 99 09/09 2130 78 25 119/56 81 98 09/09 2115 76 34 133/63 90 100 09/09 2100 77 35 124/59 85 98 09/09 2045 76 130/60 86 96 09/09 2030 75 39 133/60 86 96 09/09 2014 78 31 121/59 85 96 09/09 1999 36.7 09/09 2000 80 126/60 86 99 09/09 1945 78 38 116/58 84 100 09/09 1930 75 119/59 85 98 09/09 1915 75 135/58 84 100 09/09 1900 75 28 134/60 86 99 09/09 1845 80 26 143/60 87 96 09/09 1830 78 31 147/65 94 98 09/09 1815 78 42 140/62 89 97 09/09 1800 78 20 142/61 88 97 09/09 1745 79 13 136/67 96 98 09/09 1730 79 12 129/62 89 99 09/09 1701 140/59 85 09/09 1630 84 22 122/58 84 100 09/09 1615 85 20 117/56 81 99 09/09 1600 36.9 09/09 1600 86 21 116/55 78 97 09/09 1545 88 23 119/59 83 97 09/09 1530 91 23 119/58 84 96 09/09 1515 88 28 121/58 84 96 09/09 1500 97 25 125/66 89 96 09/09 1446 99 53 132/60 86 97 09/09 1415 100 44 143/65 94 96 09/09 1400 101 56 146/65 93 99 09/09 1355 100 48 116/63 84 99 09/09 1300 101 33 163/70 101 94 09/09 1245 95 45 154/65 93 96 09/09 1230 95 32 144/61 88 98 09/09 1215 94 32 137/62 89 95 03/25 1200 36.5 03/25 1200 83 21 157/66 95 95 03/25 1101 84 26 154/66 95 95 PATIENT WEIGHT: Weight (lb): 114 Weight (oz): 10.25 Weight (kg): 52.000 Medications: Active Meds + DC'd Last 24 Hrs Vancomycin HCl (VANCOMYCIN HCL) 500 MG Q24H IV Sodium Chloride (SODIUM CHLORIDE 0.9% 100 ML) 1 00 ML Ceftaroline Fosamil (TEFLARO) 600 MG Q12H IV Sodium Chloride (SODIUM CHLORIDE 0.9%) 100 ML Metoprolol Tartrate (LOPRESSOR) 25 MG Q12HR PO Iopamidol (ISOVUE-300 100ML) 150 ML .STK-MED ONE IV (DC) Metoprolol Tartrate (LOPRESSOR) 5 MG STAT STA IV (DC) Metoprolol Tartrate (LOPRESSOR) 0 .STK-MED ONE I V (DC) Acetaminophen (TYLENOL) 650 MG Q4H PRN PRN RECTA L Nitroglycerin (NITROSTAT) 0.4 MG STAT STA SL (DC ) Hydralazine HCl (APRESOLINE) 10 MG Q6H PRN PRN I V Ceftaroline Fosamil (TEFLARO) 600 MG Q8H IV (DC) Sodium Chloride (SODIUM CHLORIDE 0.9%) 100 ML Enoxaparin Sodium (lovENOX) 30 MG Q24H SUBQ Vancomycin HCl (VANCOMYCIN HCL) 750 MG Q24H IV ( DC) Sodium Chloride (SODIUM CHLORIDE 0.9%) 250 ML Mupirocin (BACTROBAN 2% 22 GM OINTMENT) 1 APPLIC BID NASAL Calcium Gluconate/Sodium Chloride (Calcium Gluco alexia 1 GM/NS 50 mL) 50 ML ASDIR PRN IV Calcium Gluconate/Sodium Chloride (Calcium Gluco alexia 2 GM/NS 100 mL) 100 ML ASDIR PRN IV Lactated Ringer's (LACTATED RINGERS) 1,000 ML GILLIAN MARTY IV Magnesium Sulfate (MAGNESIUM SULFATE 2GM/SWFI 50 ML) 50 ML ASDIR PRN IV Potassium Chloride (KCL 20MEQ/SWFI 100ML) 100 ML ASDIR PRN IV Potassium Chloride (POTASSIUM CHLORIDE 20MEQ TAB .ER) 20 MEQ ASDIR PRN PO Potassium Chloride (POTASSIUM CHLORIDE 20MEQ TAB .ER) 40 MEQ ASDIR PRN PO Potassium Phosphate (POTASSIUM PHOSPHATE) 15 MM ASDIR PRN IV (CKD) Sodium Chloride (SODIUM CHLORIDE 0.9%) 100 ML Potassium Phosphate (POTASSIUM PHOSPHATE) 20 MM ASDIR PRN IV (CKD) Sodium Chloride (SODIUM CHLORIDE 0.9%) 250 ML Potassium Phosphate (POTASSIUM PHOSPHATE) 30 MM ASDIR PRN IV (CKD) Sodium Chloride (SODIUM CHLORIDE 0.9%) 250 ML Sodium Phosphate (SODIUM PHOSPHATE) 15 MMOL ASDI R PRN IV (CKD) Sodium Chloride (SODIUM CHLORIDE 0.9%) 100 ML Sodium Phosphate (SODIUM PHOSPHATE) 20 MMOL ASDI R PRN IV (CKD) Sodium Chloride (SODIUM CHLORIDE 0.9%) 250 ML Sodium Phosphate (SODIUM PHOSPHATE) 30 MMOL ASDI R PRN IV (CKD) Sodium Chloride (SODIUM CHLORIDE 0.9%) 250 ML Acetaminophen (TYLENOL) 650 MG Q4H PRN PRN PO Ondansetron HCl (ZOFRAN) 4 MG Q4H PRN PRN IV Dextrose/Water (DEXTROSE 50% W SYRINGE) 25 ML DIR PRN IV (CKD) Dextrose/Water (DEXTROSE 50% W SYRINGE) 50 ML DIR PRN IV (CKD) Glucagon (GLUCAGON) 1 MG ASDIR PRN IM Insulin Human Lispro (HUMALOG) 0 AC HS SUBQ Miscellaneous Information (VANCOMYCIN PHARMACY T O DOSE) 1 EACH ASDIR IV (CKD) Physical Exam General appearance: awake Neck: full range of motion, non-tender, normal thyroid, supple/no meningismus, no bruit/NL carotids, no JVD, no lymphadenopathy , no masses or swelling Cardiovascular: CV assessment: regular rate and rhythm Respiratory: clear to auscultation, no distress Abdomen: non-tender, normal bowel sounds , no distention, no guarding, no mass/ organomegaly, no pulsatile mass, no rebound Upper extremity: UE assessment: normal capillary refill, no ammy a Lower extremity: LE assessment: normal capillary refill, no ammy a Results Findings/Data: Laboratory Tests 03/26 03/26 03/25 03/25 03/25 0802 0300 2033 1635 1415 Chemistry Sodium (134 - 147 mEq/L) 136 Potassium (3.4 - 5.0 mEq/L) 3.9 Chloride (100 - 108 mEq/L) 109 H Carbon Dioxide (21 - 33 mEq/l) 19 L Anion Gap (0 - 20) 12 BUN (7 - 18 mg/dL) 9 Creatinine (0.6 - 1.3 mg/dL) 0.7 Glomerular Filtr Rate (70 - 80) 80.5 H Glucose (70 - 110 mg/dL) 87 POC Glucose (70 - 110 MG/DL) 85 102 84 Hemoglobin A1c (4.8 - 6.0 %A1C) 6.0 Calcium (8.0 - 10.5 mg/dL) 8.1 Total Bilirubin (0.0 - 1.0 mg/dL) 0.40 AST (15 - 37 IUnit/L) 17 ALT (30 - 65 IUnit/L) 7 L Total Alk Phosphatase (20 - 125 IUnit/L) 105 Total Protein (6.4 - 8.2 g/dL) 5.9 L Albumin (3.4 - 5.0 g/dL) 2.40 L 03/25 03/25 1415 1159 Chemistry POC Glucose (70 - 110 MG/DL) 96 Triglycerides (40 - 150 mg/dL) 143 Cholesterol (<200 mg/dL) 76 LDL Cholesterol Measurd (0 - 100 mg/dL) 38.5 HDL Cholesterol (39 - 96 mg/dL) < 20.0 L Cholesterol/HDL Ratio (3.27 - 4.44 RATIO) 3.00 L Laboratory Tests 03/26 0300 Hematology WBC (4.5 - 11.0 x10 3/uL) 17.7 H RBC (3.54 - 5.02 x10 6/uL) 3.49 L Hgb (11.0 - 15.0 g/dL) 9.8 L Hct (33.0 - 45.0 %) 30.1 L MCV (81.0 - 99.0 fL) 86.2 MCH (27.0 - 33.0 pg) 28.1 MCHC (33.0 - 37.0 g/dL) 32.6 L RDW (11.5 - 14.5 %) 15.7 H Plt Count (150 - 400 x10 3/uL) 130 L MPV (7.0 - 9.0 fL) 12.7 H Neut % (Auto) (56.0 - 77.0 %) 76.2 Lymph % (Auto) (14.0 - 32.0 %) 16.0 Phelps % (Auto) (4.8 - 9.0 %) 5.4 Eos % (Auto) (0.3 - 3.7 %) 1.0 Baso % (Auto) (0.0 - 2.0 %) 0.3 Neut # (Auto) (2.0 - 7.6 x10 3/uL) 13.52 H Lymph # (Auto) (1.0 - 3.8 x10 3/uL) 2.84 Phelps # (Auto) (0.1 - 0.8 x10 3/uL) 0.96 H Eos # (Auto) (0.0 - 0.2 x10 3/uL) 0.17 Baso # (Auto) (0.0 - 0.2 x10 3/uL) 0.05 Abs Immat Gran (auto) (0.00 - 0.03 x10 3/uL) 0 .20 H Add Manual Diff NO Immature Gran % (0.0 - 2.0 %) 1.1 Nucleated RBC % (0 - 0 %) 0.0 Nucleated RBCs # (Man) (0.0 - 0.1 x10 3/uL) 0.0 0 Laboratory Tests 03/26 03/25 0130 2140 Toxicology Vancomycin Peak (30 - 40 MCG/ML) 25.2 L Vancomycin Trough (10.0 - 20.0 mcg/mL) 17.1 Radiology data: Recent Impressions: CAT SCAN - CT HEAD/BRAIN W/O CONT 03/25 1453 Report Impression - Status: SIGNED Entered: 03/25/2022 0057 IMPRESSION: 1. There is no acute intracranial process. 2. There is mild ventriculomegaly secondary to w eric matter volume loss. There is no hydrocephalus. 3. There is mild generalized brain parenchymal v olume loss. ASSESSMENT: ASPECTS (Beatris Stroke Program Early CT Score) is 10. Impression By: [email or web address] - Casey Mcgill D.O. CAT SCAN - CT ANGIO HEAD 03/25 1455 Report Impression - Status: SIGNED Entered: 03/25/2022 6448 IMPRESSION: CTA Head With Contrast, Arteriography No definite acute major large vessel branch occl usion or flow-limiting intracranial stenosis. Please pamela elate with neurologic symptoms and dedicated MRI brain can be performed for further evaluation. CTA Neck With Contrast 1. Limited study as above. No definite gross tim w-limiting internal carotid artery or vertebral stenosis detected. 2. Emphysema. Small right pleural effusion. A 9. 0 mm irregular left upper lobe pulmonary lesion is present and adjac ent 3.0 mm pulmonary nodule is present. Please refer to CT chest report for additional details. Impression By: Lety Schaefer M.D. CAT SCAN - CTA CHEST FOR PE 03/25 1456 Report Impression - Status: SIGNED Entered: 03/25/2022 1606 IMPRESSION: 1. No evidence for acute pulmonary thromboemboli sm. 2. Bilateral pleural effusions with presence of right lower lobe pneumonitis. 3. Bronchomalacia. 4. Multiple nodules in the lungs. Is there histo ry of primary neoplasm? 5. Patchy pneumonitis in the right middle lobe. 6. Right hilar lymph node. Impression By: [email or web address] [place]ers CAT SCAN - CT ANGIO NECK 03/25 1456 Report Impression - Status: SIGNED Entered: 03/25/2022 1515 IMPRESSION: CTA Head With Contrast, Arteriography No definite acute major large vessel branch occl usion or flow-limiting intracranial stenosis. Please pamela elate with neurologic symptoms and dedicated MRI brain can be performed for further evaluation. CTA Neck With Contrast 1. Limited study as above. No definite gross tim w-limiting internal carotid artery or vertebral stenosis detected. 2. Emphysema. Small right pleural effusion. A 9. 0 mm irregular left upper lobe pulmonary lesion is present and adjac ent 3.0 mm pulmonary nodule is present. Please refer to CT chest report for additional details. Impression By: Lety Schaefer M.D. [facility] - MRI BRAIN W/O CONT 03/25 1912 Report Impression - Status: SIGNED Entered: 03/26/2022 0843 IMPRESSION: 1. No acute intracranial process. No evidence fo r acute or subacute infarct. No edema, hemorrhage, or mass effect. 2. No MR evidence for meningitis or cerebritis. 3. Mild volume loss related ventriculomegaly. No acute hydrocephalus. Impression By: [email or web address] - Antoine Bravo M.D. Diagnosis, Assessment Plan Problem List/A P: 1. MRSA bacteremia 2. Sepsis 3. Lactic acidosis 4. Infective endocarditis of pulmonary valve Consultants: cardiology, critical/intens ivist, hospitalist, infectious disease Free Text DxA P Notes Free Text DxA P Notes: 03/24 awake, stable BP , IGLESIA showed veg on pulm valve, ID was informed. IV abx. 03/25 doing well, stable, on IV abx, high BP will star t med, ok to go to tele. 03/26 awake, doing ok, had TIA yes terday, CT was ok, will get echo with bubble study, on IV abx. Electronically Signed by Sherry Gonsales MD on 0 03/26/22 at 1028 RPT #:[id number] END OF REPORT 2022-03-26 09:12:00-00:00 [facility] ([facility] Critical Care Progress Note REPORT#:[id number] REPORT STATUS: Signed DATE:03/26/22 TIME: 911 PATIENT: MICHAELA MATIAS UNIT #: [id number] ROOM/BED: [place] [address] : 41 AGE: 81 SEX: F ATTEND: Josiane Wisdom MD ADM AUTHOR: Bruce Durham MD * ALL edits or amendments must be made on the el [employer]/computer document * Subjective Chief complaint: MRSA bacteremia Pulmonary valve vegetation/endocarditis Accelerated hypertension Aphasia Sinus tachycardia History of dementia Anemia of chronic disease HPI: Patient seen and examined in medical ICU room #310 and discussed during MDR this morning. Patient had significant neurological ep isode yesterday with aphasia after she received metoprolol 5 mg IV for accele rated hypertension and tachycardia at 140. Blood pressure was elevated at 190/[address] head without contrast, CTA head and neck and CT chest PE protocol all were inconclusive for any acute pathology. Patient im proved and was able to verbalize after the investigations. She was admi tted with MRSA bacteremia and vegetation on the pulmonary valve. Underwent contrast esophageal echocardiogram that revealed vegetation. She has been eating po hannah. Speech cleared her for pur ed diet. Patient has peripheral access. Cent ral venous catheter from the femoral vein has been discontinued. No history o f prosthesis implantation. Patient is on Vancomycin and Cefteradine with dual antibiotic coverage for MRSA. ID is following. Will reculture in the next 24 hours. Michaela Matias is a 81-year-old female, w ith past medical history of coronary artery disease, his tory of CABG in the , diabetes mellitus type 2, hypertension, dementia, stage III CKD, who was t ransferred from [facility] for septic shock. Patient was recently hospitalized at that hospital for chest pain at that time and sh e was offered to have cardiac catheterization which she declined. Patient was called back as blood cultures done during that admission w ere positive for MRSA so she was hospitalized again and started on IV antibiotics for 1 week and then discharged on antibiotics at home for another 2 weeks. However, patient prese nted again to the emergency department at [facility] as he started to feel weak again and was spiking fevers again. Patient had a femoral central venous cath eter inserted and was started on Levophed there. On arrival to our ICU, robbie t noted to have normal blood pressure not requiring pressors. Overnight, tex ent started having chills and rigors. Patient is full code. Patient reports: No: diarrhea, fever, vomiting. Nursing reports: No: diarrhea, fever, vomiting. Review of Systems Constitutional: Denies: fatigue, fever. Skin: Denies: diaphoresis, ecchymosis, rash, swelling. Allergy/Immun: Denies: anaphylaxis, hives. Eyes: Denies: redness, discharge. ENT: Denies: nose bleeding, throat swelling, tongue s welling. Respiratory: Denies: hemoptysis, non productive cough, SOB. Cardiovascular: Denies: DEE (dyspnea on exertion), edema. GI: Denies: hematemesis, hematochezia, vomiting. : Denies: hematuria, nocturia. Heme: Denies: bleeding, bruising. Endocrine: Denies: polydipsia, polyphagia. Neuro: Denies: dizziness, focal weakness, seizure. Psych: Denies: confusion, hostile, insomnia. Objective General VS/I O Last Documented: Result Date Time Pulse Ox 99 03/26 0700 B/P 159/69 03/26 0700 B/P Mean 99 03/26 0700 Pulse 74 03/26 0700 Resp 40 03/26 07 Temp 36.2 03/26 0400 O2 Delivery Room air 03/24 1022 O2 Flow Rate 2 03/24 0800 24 hour I O ending at 0700: 03/26 0700 03/25 1900 Intake Total 750.00 1105.00 Output Total 700 350 Balance 50.00 755.00 Intake, IV 350.00 265.00 Intake, Oral 400 720 Intake, Oral 120 Supplement Number 3 Incontinent Voids Number Voids 3 Output, Urine 700 350 PATIENT WEIGHT: Weight (lb): 114 Weight (oz): 10.25 Weight (kg): 52.000 Medications: Active Meds + DC'd Last 24 Hrs Vancomycin HCl (VANCOMYCIN HCL) 500 MG Q24H IV Sodium Chloride (SODIUM CHLORIDE 0.9% 100 ML) 1 00 ML Ceftaroline Fosamil (TEFLARO) 600 MG Q12H IV Sodium Chloride (SODIUM CHLORIDE 0.9%) 100 ML Metoprolol Tartrate (LOPRESSOR) 25 MG Q12HR PO Iopamidol (ISOVUE-300 100ML) 150 ML .STK-MED ONE IV (DC) Metoprolol Tartrate (LOPRESSOR) 5 MG STAT STA I V (DC) Metoprolol Tartrate (LOPRESSOR) 0 .STK-MED ONE I V (DC) Acetaminophen (TYLENOL) 650 MG Q4H PRN PRN RECTA L Nitroglycerin (NITROSTAT) 0.4 MG STAT STA SL (D C) Hydralazine HCl (APRESOLINE) 10 MG Q6H PRN PRN I V Ceftaroline Fosamil (TEFLARO) 600 MG Q8H IV (DC) Sodium Chloride (SODIUM CHLORIDE 0.9%) 100 ML Enoxaparin Sodium (lovENOX) 30 MG Q24H SUBQ Vancomycin HCl (VANCOMYCIN HCL) 750 MG Q24H IV ( DC) Sodium Chloride (SODIUM CHLORIDE 0.9%) 250 ML Mupirocin (BACTROBAN 2% 22 GM OINTMENT) 1 APPLIC BID NASAL Calcium Gluconate/Sodium Chloride (Calcium Gluco alexia 1 GM/NS 50 mL) 50 ML ASDIR PRN IV Calcium Gluconate/Sodium Chloride (Calcium Gluco alexia 2 GM/NS 100 mL) 100 ML ASDIR PRN IV Lactated Ringer's (LACTATED RINGERS) 1,000 ML GILLIAN MARTY IV Magnesium Sulfate (MAGNESIUM SULFATE 2GM/SWFI 50 ML) 50 ML ASDIR PRN IV Potassium Chloride (KCL 20MEQ/SWFI 100ML) 100 ML ASDIR PRN IV Potassium Chloride (POTASSIUM CHLORIDE 20MEQ TAB .ER) 20 MEQ ASDIR PRN PO Potassium Chloride (POTASSIUM CHLORIDE 20MEQ TAB .ER) 40 MEQ ASDIR PRN PO Potassium Phosphate (POTASSIUM PHOSPHATE) 15 MM ASDIR PRN IV (CKD) Sodium Chloride (SODIUM CHLORIDE 0.9%) 100 ML Potassium Phosphate (POTASSIUM PHOSPHATE) 20 MM ASDIR PRN IV (CKD) Sodium Chloride (SODIUM CHLORIDE 0.9%) 250 ML Potassium Phosphate (POTASSIUM PHOSPHATE) 30 MM ASDIR PRN IV (CKD) Sodium Chloride (SODIUM CHLORIDE 0.9%) 250 ML Sodium Phosphate (SODIUM PHOSPHATE) 15 MMOL ASDI R PRN IV (CKD) Sodium Chloride (SODIUM CHLORIDE 0.9%) 100 ML Sodium Phosphate (SODIUM PHOSPHATE) 20 MMOL ASDI R PRN IV (CKD) Sodium Chloride (SODIUM CHLORIDE 0.9%) 250 ML Sodium Phosphate (SODIUM PHOSPHATE) 30 MMOL ASDI R PRN IV (CKD) Sodium Chloride (SODIUM CHLORIDE 0.9%) 250 ML Acetaminophen (TYLENOL) 650 MG Q4H PRN PRN PO Ondansetron HCl (ZOFRAN) 4 MG Q4H PRN PRN IV Dextrose/Water (DEXTROSE 50% W SYRINGE) 25 ML DIR PRN IV (CKD) Dextrose/Water (DEXTROSE 50% W SYRINGE) 50 ML DIR PRN IV (CKD) Glucagon (GLUCAGON) 1 MG ASDIR PRN IM Insulin Human Lispro (HUMALOG) 0 AC HS SUBQ Miscellaneous Information (VANCOMYCIN PHARMACY T O DOSE) 1 EACH ASDIR IV (CKD) Physical Exam General appearance: alert, awake, oriented, no a cute distress, pleasant, conversational, mental status normal, no respira tory distress Head/eyes: atraumatic, clear cornea, normocephal ic, PERRL ENT: moist mucosal membranes Neck: non-tender, normal thyroid, no JVD, no mas ses or swelling Cardiovascular: tachycardia, normal capillary re fill, normal heart sounds Respiratory: aerating well, clear to auscultatio n, symmetric expansion, no distress Abdomen: soft, non-tender, no distention, no gua rding Extremities: moves all, normal capillary refill, no clubbing, no cyanosis, no edema 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0 - 10.5 mg/dL) 8.1 Total Bilirubin (0.0 - 1.0 mg/dL) 0.40 AST (15 - 37 IUnit/L) 17 ALT (30 - 65 IUnit/L) 7 L Total Alk Phosphatase (20 - 125 IUnit/L) 105 Total Protein (6.4 - 8.2 g/dL) 5.9 L Albumin (3.4 - 5.0 g/dL) 2.40 L 03/25 03/25 1415 1159 Chemistry POC Glucose (70 - 110 MG/DL) 96 Triglycerides (40 - 150 mg/dL) 143 Cholesterol (<200 mg/dL) 76 LDL Cholesterol Measurd (0 - 100 mg/dL) 38.5 HDL Cholesterol (39 - 96 mg/dL) < 20.0 L Cholesterol/HDL Ratio (3.27 - 4.44 RATIO) 3.00 L Laboratory Tests 03/26 030 Hematology WBC (4.5 - 11.0 x10 3/uL) 17.7 H RBC (3.54 - 5.02 x10 6/uL) 3.49 L Hgb (11.0 - 15.0 g/dL) 9.8 L Hct (33.0 - 45.0 %) 30.1 L MCV (81.0 - 99.0 fL) 86.2 MCH (27.0 - 33.0 pg) 28.1 MCHC (33.0 - 37.0 g/dL) 32.6 L RDW (11.5 - 14.5 %) 15.7 H Plt Count (150 - 400 x10 3/uL) 130 L MPV (7.0 - 9.0 fL) 12.7 H Neut % (Auto) (56.0 - 77.0 %) 76.2 Lymph % (Auto) (14.0 - 32.0 %) 16.0 Phelps % (Auto) (4.8 - 9.0 %) 5.4 Eos % (Auto) (0.3 - 3.7 %) 1.0 Baso % (Auto) (0.0 - 2.0 %) 0.3 Neut # (Auto) (2.0 - 7.6 x10 3/uL) 13.52 H Lymph # (Auto) (1.0 - 3.8 x10 3/uL) 2.84 Phelps # (Auto) (0.1 - 0.8 x10 3/uL) 0.96 H Eos # (Auto) (0.0 - 0.2 x10 3/uL) 0.17 Baso # (Auto) (0.0 - 0.2 x10 3/uL) 0.05 Abs Immat Gran (auto) (0.00 - 0.03 x10 3/uL) 0. 20 H Add Manual Diff NO Immature Gran % (0.0 - 2.0 %) 1.1 Nucleated RBC % (0 - 0 %) 0.0 Nucleated RBCs # (Man) (0.0 - 0.1 x10 3/uL) 0. 00 Laboratory Tests 03/26 03/25 0130 2140 Toxicology Vancomycin Peak (30 - 40 MCG/ML) 25.2 L Vancomycin Trough (10.0 - 20.0 mcg/mL) 17.1 Laboratory Tests 03/26/22 0300: [Embedded Image Not Available] Microbiology: 03/26 300 BLOOD: Blood Culture - RECD 03/26 030 BLOOD: Blood Culture - RECD 03/24 1200 BLOOD: Blood Culture - RES COAG POS STAPHYLOCOCCUS 03/24 1200 BLOOD: Blood Culture Gram Stain - RES 03/24 1200 BLOOD: Blood Culture - RES COAG POS STAPHYLOCOCCUS 03/24 1200 BLOOD: Blood Culture Gram Stain - RES 03/23 2235 BLOOD: Blood Culture - COMP STAPH AUREUS,METHICILLIN RESIS 03/23 2235 BLOOD: Blood Culture Gram Stain - COM P 03/23 2215 BLOOD: Blood Culture - COMP STAPH AUREUS,METHICILLIN RESIS 03/23 2215 BLOOD: Blood Culture Gram Stain - COM P 03/23 1950 NASAL: MRSA DNA Surveillance Screen - COMP Radiology data Recent Impressions: CAT SCAN - CT HEAD/BRAIN W/O CONT 03/25 1453 Report Impression - Status: SIGNED Entered: 03/25/2022 1508 IMPRESSION: 1. There is no acute intracranial process. 2. There is mild ventriculomegaly secondary to w eric matter volume loss. There is no hydrocephalus. 3. There is mild generalized brain parenchymal v olume loss. ASSESSMENT: ASPECTS ([facility] Stroke Program Early CT Score) is 10. Impression By: [email or web address] - Casey Mcgill D.O. CAT SCAN - CT ANGIO HEAD 03/25 1455 Report Impression - Status: SIGNED Entered: 03/25/2022 1515 IMPRESSION: CTA Head With Contrast, Arteriography No definite acute major large vessel branch occl usion or flow-limiting intracranial stenosis. Please apmela elate with neurologic symptoms and dedicated MRI brain can be performed for further evaluation. CTA Neck With Contrast 1. Limited study as above. No definite gross tim w-limiting internal carotid artery or vertebral stenosis detected. 2. Emphysema. Small right pleural effusion. A 9. 0 mm irregular left upper lobe pulmonary lesion is present and adjac ent 3.0 mm pulmonary nodule is present. Please refer to CT chest report for additional details. Impression By: [email or web address] - Richy Schaefer M.D. CAT SCAN - CTA CHEST FOR PE 03/25 1456 Report Impression - Status: SIGNED Entered: 03/25/2022 1606 IMPRESSION: 1. No evidence for acute pulmonary thromboemboli sm. 2. Bilateral pleural effusions with presence of right lower lobe pneumonitis. 3. Bronchomalacia. 4. Multiple nodules in the lungs. Is there histo ry of primary neoplasm? 5. Patchy pneumonitis in the right middle lobe. 6. Right hilar lymph node. Impression By: [email or web address] - Chi Perez CAT SCAN - CT ANGIO NECK 03/25 1456 Report Impression - Status: SIGNED Entered: 03/25/2022 1515 IMPRESSION: CTA Head With Contrast, Arteriography No definite acute major large vessel branch occl usion or flow-limiting intracranial stenosis. Please pamela elate with neurologic symptoms and dedicated MRI brain can be performed for further evaluation. CTA Neck With Contrast 1. Limited study as above. No definite gross tim w-limiting internal carotid artery or vertebral stenosis detected. 2. Emphysema. Small right pleural effusion. A 9. 0 mm irregular left upper lobe pulmonary lesion is present and adjac ent 3.0 mm pulmonary nodule is present. Please refer to CT chest report for additional details. Impression By: [email or web address] - Richy Schaefer M.D. [facility] - MRI BRAIN W/O CONT 03/25 1912 Report Impression - Status: SIGNED Entered: 03/26/2022 0843 IMPRESSION: 1. No acute intracranial process. No evidence fo r acute or subacute infarct. No edema, hemorrhage, or mass effect. 2. No MR evidence for meningitis or cerebritis. 3. Mild volume loss related ventriculomegaly. No acute hydrocephalus. Impression By: [email or web address] - Antoine Bravo M.D. Results: labs reviewed, vital signs revi ewed, rhythm personally rev'd, current med profile rev'd Diagnosis, Assessment Plan Free text A P: Problem list: MRSA bacteremia Sepsis Pulmonary valve vegetation/endocarditis Aphasia Accelerated hypertension Sinus tachycardia History of Dementia Anemia of chronic disease Assessment and Plan: Neuro: Patient has dementia. Monitor. Cardiogram Patient has history of coronary artery disease s tatus post CABG in 1989. Now, patient is hemodynamically stable. For IGLESIA tomorrow as per cardiology to evaluate f or endocarditis. Pulmonary: Patient is hypoxic. Chest x-ray is not impressiv e. Provide supplemental oxygen as needed to maintain oxygen saturation between 92 to 95%. GI: Liver enzymes were elevated on admission, monito r. Tolerating p.o. diet. Renal: Patient reported to have CKD stage III. Creatini ne normal on admission. Monitor BUN, creatinine. Monitor intake output. Monitor electrolytes and replace as needed. Endocrine: Patient has diabetes mellitus managed with diet. Monitor blood sugar. ID: Patient has MRSA bacteremia that failed 3 weeks of IV antibiotic treatment. Patient also has new onset CHF and new mitral re gurgitation suspicious for infective endocarditis. Patient for IGLESIA tomorrow morning. We will start the patient on vancomycin and cefe pime for now. Will obtain blood cultures and MRSA screen. Heme-onc: Patient has normocytic anemia, monitor and trans fuse as needed. Lovenox for DVT prophylaxis. Critical care time 45 minutes excluding any proc edure time. 03/25/2022 Assessment and plan: Patient seen and examined in medical ICU room #310 and discussed during MDR this morning. She was admitted with MRSA bact eremia and vegetation on the pulmonary valve. Underwent contrast esophageal echocardiog mei that revealed vegetation. She has been eating poorly. Speech cleared her f or pur ed diet. Patient has peripheral access. Central venous catheter from the femoral vein has been discontinued. No history of prosthesis implantat ion. Patient is on vancomycin and ceftazidime with dual antibiotic coverage fo r MRSA. ID is following. Will reculture in the next 24 hours. Later in the day patient developed aphasia in the backdrop of accelerated hypertension and tac hycardia. She was given metoprolol 5 mg IV to bring the heart rate down from 148 203 and blood pressure from 192/112-137/62 mmHg. There was concern for watershed infarct. CT head without contrast, CT angiogram of the head and n bruce and CTA PE protocol were performed that were inconclusive. At the end of the study patient was able to phonate and express her name. She remains nonfoc al. Was able to move all 4 extremities. No facial droop or drift was identi fied. Michaela Matias is a 81-year-old female, w ith past medical history of coronary artery disease, his tory of CABG in the , diabetes mellitus type 2, hypertension, dementia, stage III CKD, who was t ransferred from [facility] for septic shock. Patient was recently hospitalized at that hospital for chest pain at that time and sh e was offered to have cardiac catheterization which she declined. Patient was called back as blood cultures done during that admission w ere positive for MRSA so she was hospitalized again and started on IV antibiotics for 1 week and then discharged on antibiotics at home for another 2 weeks. However, patient prese nted again to the emergency department at [facility] as he started to feel weak again and was spiking fevers again. Patient had a femoral central venous cath eter inserted and was started on Levophed there. On arrival to our ICU, patien t noted to have normal blood pressure not requiring pressors. Overnight, tex ent started having chills and rigors. Patient is full code. Patient was admitted with MRSA bacteremia and fo und to have pulmonary valve vegetation Patient developed significant tachycardia and hy pertensive urgency Tachycardia and hypertensive urgency was treated with metoprolol 5 mg IV x1 dose Heart rate was 140 with a blood pressure of 190/ 112 mmHg 8 responded to metoprolol IV and subsequent hear t rate was 102 with a blood pressure of 137/62 mmHg Patient developed aphasia Concern for watershed infarct versus paradoxical CVA No mention of PFO on the IGLESIA Code stroke was called Patient was seen by Dr. Barahona CT head without contrast, CT A of the head and neck and CT chest PE protocol were ordered No evidence of stroke or pulmonary embolism/sept ic embolism was found Patient continues on 2 antibiotics including van comycin and ceftaradine Sodium is improved to 141 Magnesium is low at 1.6 and patient received 2 g of magnesium sulfate Patient is on room air Femoral central venous catheter has been removed Patient has peripheral access We will recheck blood cultures in the next 24 ho urs No history of prosthesis or devices Speech evaluation performed Patient is okay for pur ed diet Eating is poor Follow neuro status with neurochecks every hour DVT prophylaxis Bruce Durham MD [facility] 03/25/2022 6.41 PM 03/26/2022 Patient seen and examined in medical ICU room #310 and discussed during MDR this morning. Patient had significant neurological ep isode yesterday with aphasia after she received metoprolol 5 mg IV for accele rated hypertension and tachycardia at 140. Blood pressure was elevated at 190/[address] head without contrast, CTA head and neck and CT chest PE protocol all were inconclusive for any acute pathology. Patient im proved and was able to verbalize after the investigations. She was admi tted with MRSA bacteremia and vegetation on the pulmonary valve. Underwent contrast esophageal echocardiogram that revealed vegetation. She has been eating po hannah. Speech cleared her for pur ed diet. Patient has peripheral access. Cent ral venous catheter from the femoral vein has been discontinued. No history o f prosthesis implantation. Patient is on Vancomycin and Cefteradine with dual antibiotic coverage for MRSA. ID is following. Will reculture in the next 24 hours. Michaela Matias is a 81-year-old female, w ith past medical history of coronary artery disease, his tory of CABG in the , diabetes mellitus type 2, hypertension, dementia, stage III CKD, who was t ransferred from [facility] for septic shock. Patient was recently hospitalized at that hospital for chest pain at that time and sh grzegorz was offered to have cardiac catheterization which she declined. Patient was called back as blood cultures done during that admission w ere positive for MRSA so she was hospitalized again and started on IV antibiotics for 1 week and then discharged on antibiotics at home for another 2 weeks. However, patient prese nted again to the emergency department at [facility] as he started to feel weak again and was spiking fevers again. Patient had a femoral central venous cath eter inserted and was started on Levophed there. On arrival to our ICU, robbie spaulding noted to have normal blood pressure not requiring pressors. Overnight, tex [place] started having chills and rigors. Patient is full code. Patient continues to have a stable neurological status Developed aphasia after receiving metoprolol 5 m g IV to treat accelerated hypertension and sinus tachycardia Heart rate was elevated at 140s and blood pressu re was 190s/112 mmHg in the afternoon yesterday Patient became aphasic and underwent CT head without contrast, CTA of the head and neck and CT chest PE protocol All of the above investigations were inconclusiv e for any acute pathology Patient regained speech and was fluent after the investigations on her way back to the medical ICU She is on every 2 neurochecks Continues to be on dual antibiotics for MRSA karly teremia and pulmonary valve endocarditis Febrile central venous catheter has been removed Patient has peripheral line Draw 2 sets of blood cultures tomorrow, if negat mele we will place PICC line Patient will receive antibiotics for 6 weeks tot al Infectious diseases following the patient Vital signs are stable with a heart rate of 75 in sinus rhythm, blood pressure 135/63 mmHg, respiratory rate 32, pulse ox 97% Patient is status post IGLESIA that did not reveal a ny patent foramina well However it was positive for pulmonary valve endo carditis GI prophylaxis Bruce Durham MD [facility] 03/26/2022 5.27 PM Consultants: cardiology, critical/intens ivist, hospitalist, infectious disease Code status: full code Plan discussed with: nurse, interdisc care team, pharmacy/pharmacist Critical care time: Minutes: 45 Quality: Gen Med Crit Care VTE Prophylaxis VTE prophylaxis initiated: yes Current Medications Current medication review: I attest that the foregoing medication list in [facility]on weber medical record is true, accurate, and complete to the best of my knowled ge. Advanced Care Plan 65 or Older Discussed with: surrogate [email or web address]. maker Discussion included: code status Electronically Signed by Bruce Durham MD on 03/17 at 1732 RPT #:[id number] END OF REPORT 2022-03-26 08:59:00-00:00 [facility] ([facility] Neurology Progress Note REPORT#:[id number] REPORT STATUS: Signed DATE:03/26/22 TIME: 0859 PATIENT: MICHAELA MATIAS UNIT #: [id number] ROOM/BED: [place] [id number] : 41 AGE: 81 SEX: F ATTEND: Josiane Wisdom MD ADM AUTHOR: Rodrick Barahona MD * ALL edits or amendments must be made on the [employer]/computer document * Subjective Chief complaint: TIA HPI: The patient has done well in the last 24 hours. She is awake and alert. Answering questions. Complains of intermittent a bdominal pain. Granddaughter and at bedside. Discussed plan of care. Review of Systems Free Text ROS Notes Free Text ROS Notes: A 12 point review of systems was reviewed with jasson weber patient and negative other than noted in HPI. Objective General VS: Last Documented: Result Date Time Pulse Ox 99 03/26 0700 B/P 159/69 03/26 0700 B/P Mean 99 03/26 0700 Pulse 74 03/26 0700 Resp 40 03/26 0700 Temp 36.2 03/26 0400 O2 Delivery Room air 03/24 1022 O2 Flow Rate 2 03/24 0800 PATIENT WEIGHT: Weight (lb): 114 Weight (oz): 10.25 Weight (kg): 52.000 Medications Current Home Medications CARVEDILOL (COREG) 3.125 MG PO ONCE LISINOPRIL (ZESTRIL) 2.5 MG PO DAILY ROSUVASTATIN (CRESTOR) 40 MG PO DAILY FLUoxetine (PROzac) 20 MG PO DAILY OMEPRAZOLE ER 20 MG PO DAILY OXYBUTYNIN (DITROPAN) 5 MG PO ONCE MEMANTINE (NAMENDA) 10 MG PO DAILY MEMANTINE (NAMENDA) 10 MG PO DAILY Active Meds + DC'd Last 24 Hrs Vancomycin HCl (VANCOMYCIN HCL) 500 MG Q24H IV Sodium Chloride (SODIUM CHLORIDE 0.9% 100 ML) 1 00 ML Ceftaroline Fosamil (TEFLARO) 600 MG Q12H IV Sodium Chloride (SODIUM CHLORIDE 0.9%) 100 ML Metoprolol Tartrate (LOPRESSOR) 25 MG Q12HR PO Iopamidol (ISOVUE-300 100ML) 150 ML .STK-MED ONE IV (DC) Metoprolol Tartrate (LOPRESSOR) 5 MG STAT STA IV (DC) Metoprolol Tartrate (LOPRESSOR) 0 .STK-MED ONE I V (DC) Acetaminophen (TYLENOL) 650 MG Q4H PRN PRN RECT AL Nitroglycerin (NITROSTAT) 0.4 MG STAT STA SL (DC ) Hydralazine HCl (APRESOLINE) 10 MG Q6H PRN PRN I V Ceftaroline Fosamil (TEFLARO) 600 MG Q8H IV (DC) Sodium Chloride (SODIUM CHLORIDE 0.9%) 100 ML Enoxaparin Sodium (lovENOX) 30 MG Q24H SUBQ Vancomycin HCl (VANCOMYCIN HCL) 750 MG Q24H IV ( DC) Sodium Chloride (SODIUM CHLORIDE 0.9%) 250 ML Mupirocin (BACTROBAN 2% 22 GM OINTMENT) 1 APPLIC BID NASAL Calcium Gluconate/Sodium Chloride (Calcium Gluco alexia 1 GM/NS 50 mL) 50 ML ASDIR PRN IV Calcium Gluconate/Sodium Chloride (Calcium Gluco alexia 2 GM/NS 100 mL) 100 ML ASDIR PRN IV Lactated Ringer's (LACTATED RINGERS) 1,000 ML B OLUS IV Magnesium Sulfate (MAGNESIUM SULFATE 2GM/SWFI 50 ML) 50 ML ASDIR PRN IV Potassium Chloride (KCL 20MEQ/SWFI 100ML) 100 ML ASDIR PRN IV Potassium Chloride (POTASSIUM CHLORIDE 20MEQ TAB .ER) 20 MEQ ASDIR PRN PO Potassium Chloride (POTASSIUM CHLORIDE 20MEQ TAB .ER) 40 MEQ ASDIR PRN PO Potassium Phosphate (POTASSIUM PHOSPHATE) 15 MM ASDIR PRN IV (CKD) Sodium Chloride (SODIUM CHLORIDE 0.9%) 100 ML Potassium Phosphate (POTASSIUM PHOSPHATE) 20 MM ASDIR PRN IV (CKD) Sodium Chloride (SODIUM CHLORIDE 0.9%) 250 ML Potassium Phosphate (POTASSIUM PHOSPHATE) 30 MM ASDIR PRN IV (CKD) Sodium Chloride (SODIUM CHLORIDE 0.9%) 250 ML Sodium Phosphate (SODIUM PHOSPHATE) 15 MMOL ASDI R PRN IV (CKD) Sodium Chloride (SODIUM CHLORIDE 0.9%) 100 ML Sodium Phosphate (SODIUM PHOSPHATE) 20 MMOL ASDI R PRN IV (CKD) Sodium Chloride (SODIUM CHLORIDE 0.9%) 250 ML Sodium Phosphate (SODIUM PHOSPHATE) 30 MMOL ASDI R PRN IV (CKD) Sodium Chloride (SODIUM CHLORIDE 0.9%) 250 ML Acetaminophen (TYLENOL) 650 MG Q4H PRN PRN PO Ondansetron HCl (ZOFRAN) 4 MG Q4H PRN PRN IV Dextrose/Water (DEXTROSE 50% W SYRINGE) 25 ML DIR PRN IV (CKD) Dextrose/Water (DEXTROSE 50% W SYRINGE) 50 ML DIR PRN IV (CKD) Glucagon (GLUCAGON) 1 MG ASDIR PRN IM Insulin Human Lispro (HUMALOG) 0 AC HS SUBQ Miscellaneous Information (VANCOMYCIN PHARMACY T O DOSE) 1 EACH ASDIR IV (CKD) Nutrition assessment: The data set between the solid lines has been im ported from the dietitian's assessment. Any exceptions have been noted under Provider comments. BMI Calculated: 21.9 Nutrition related diagnosis: Nutrition diagnosis details: Nutrition problem: Nutrition etiology: Nutrition signs and symptoms: Nutrition prescription: Dietitian name: Assessment completed: Provider comments on imported dietitian assessme nt: Physical Exam Neuro comment: GEN: Elderly, chronically ill-appearing, thin CVS: Tachycardic CHEST: No signs of resp distress, on room air ABD: Soft, NTTP NEURO MENTAL STATUS: The patient is oriented to self. She is awake and alert. Follows one-step commands. LANG/SPEECH: Paucity of speech. Able to tell me her name, name objects, and speak in 1-2 word sentences. Not clearly aph asic. No clear dysarthria. CRANIAL NERVES: II: Pupils equal and reactive, no RAPD, no VF de ficits, normal fundus III, IV, : EOM intact, no gaze preference or d eviation, no nystagmus. V: normal sensation in V1, V2, and V3 segments b ilaterally VII: no asymmetry, no nasolabial fold flattening VIII: normal hearing to speech IX, X: normal palatal elevation, no uvular devia tion XI: 5/5 head turn and 5/5 shoulder shrug bilater ally XII: midline tongue protrusion MOTOR: The patient is weakly antigravity in all 4 extre mities REFLEXES: 2/4 throughout, extensor plantar respo nse in left lower extremity, flexor plantar response in right lowe r extremity, 2 beat ankle clonus in right lower extremity. SENSORY: Normal to touch No hemineglect, no extinction to double sided st imulation (visual tactile) Romberg absent COORD: Does not participate with coordination te sting Diagnosis, Assessment Plan Free Text A P: This patient is a 81-year-old female with histor y of vascular dementia hospitalized for septic shock in the setting of bacterial endocarditis of the pulmonic valve presenting for evaluation of new onset aphasia and right-sided weakness. TIA Vascular dementia Septic shock Pulmonic bacterial endocarditis -Every 2 hour neurochecks -Goal normotension -Avoid anticoagulants and antithrombotics if pos sible given high risk of hemorrhage related to endocarditis -IV antibiotics managed by infectious disease -Pulmonic vegetation managed by infectious disea se -A1c 6.0, lipid panel LDL 38.5 -MRI brain does not appear to demonstrate any ev idence of acute ischemia or evidence of microhemorrhage Disposition: TIA in the setting of bacterial end ocarditis. The patient does have pulmonic valve involvement which should not cause cerebrovascular issues other than possibly mycotic aneurysms. May benef it from evaluation of PFO in the future, but at this time would not change ma nagement. Recommend continued IV antibiotics for management of endocar ditis. Every 2 hours neurochecks while in the ICU. Can restart aspirin once the patient is confidently well treated for endocarditis for stroke prevention given her prior history of vascular dementia. Neurology will sign off at thi s time. Please call with any questions or concerns regarding this patient. Consultants: cardiology, critical/intens ivist, hospitalist, infectious disease at 0902 RPT #:[id number] END OF REPORT 2022-03-26 06:51:00-00:00 [facility] ([facility] Pharmacy Prog.Note-Vancomycin REPORT#:[id number] REPORT STATUS: Signed DATE:03/26/22 TIME: 06 PATIENT: MICHAELA MATIAS UNIT #: [id number] ROOM/BED: [address] : [address] AGE: 81 SEX: F ATTEND: Annette Wisdom MD ADM AUTHOR: Misti Campbell [facility] * ALL edits or amendments must be made on the [employer]/computer document * Vancomycin Vancomycin Medication Therapy Goal: AUC 400-600 mcg*hr/mL Indication for treatment: Bacteremia Current therapy: Vancomycin 500 mg IV q24h Day of therapy: Day 3 VS and I/O: Vital Signs Date Temp Pulse Resp B/P B/P Mean Pulse Ox FiO2 03/23-03/26 36.2-37.3 62-192 12-56 89-235/30-12 7 62-170 90-100 72 hours ending at 0700 03/26 0703/25 1900 03/23 0700 1900 Intake 200 1105.00 75 1766.00 967.50 Total Output 400 350 300 Total Balance -200 755.00 75 1766.00 667.50 Intake, IV 265.00 1526.00 967.50 Intake, 200 720 75 240 Oral Intake, 120 Oral Supplement Number 3 1 3 Incontinen t Voids Number 3 2 Voids Output, 400 350 300 Urine Patient 52 kg 44.3 kg Weight Weight Bed scale Bed scale Measuremen t Method 72 Hour I O Total 03/26 0703/25 07 Intake Total 1305.00 1841.00 967.50 Output Total 750 300 Balance 555.00 1841.00 667.50 Labs: Laboratory Tests: 03/26 03/25 0130 2140 Toxicology Vancomycin Peak (30 - 40 MCG/ML) 25.2 L Vancomycin Trough (10.0 - 20.0 mcg/mL) 17.1 Laboratory Test : 03/26 030 Chemistry BUN (7 - 18 mg/dL) 9 Creatinine (0.6 - 1.3 mg/dL) 0.7 Hematology WBC (4.5 - 11.0 x10 3/uL) 17.7 H Microbiology: 03/26 300 BLOOD: Blood Culture - RECD 03/26 030 BLOOD: Blood Culture - RECD 03/24 1200 BLOOD: Blood Culture - RES 03/24 1200 BLOOD: Blood Culture Gram Stain - RES 03/24 1200 BLOOD: Blood Culture - RES 03/24 1200 BLOOD: Blood Culture Gram Stain - RES 03/23 223 BLOOD: Blood Culture - RES COAG POS STAPHYLOCOCCUS 03/23 223 BLOOD: Blood Culture Gram Stain - RES 03/23 2215 BLOOD: Blood Culture - RES COAG POS STAPHYLOCOCCUS 03/23 2215 BLOOD: Blood Culture Gram Stain - RES 03/23 1950 NASAL: MRSA DNA Surveillance Screen - COMP Pertinent tests: Recent Impressions: CAT SCAN - CT HEAD/BRAIN W/O CONT 03/25 1453 Report Impression - Status: SIGNED Entered: 03/25/2022 1508 IMPRESSION: 1. There is no acute intracranial process. 2. There is mild ventriculomegaly secondary to w eric matter volume loss. There is no hydrocephalus. 3. There is mild generalized brain parenchymal v olume loss. ASSESSMENT: ASPECTS (Beatris Stroke Program Early CT Score) is 10. Impression By: [email or web address] - Casey Mcgill D.O. CAT SCAN - CT ANGIO HEAD 03/25 145 Report Impression - Status: SIGNED Entered: 03/25/2022 1515 IMPRESSION: CTA Head With Contrast, Arteriography No definite acute major large vessel branch occl usion or flow-limiting intracranial stenosis. Please pamela elate with neurologic symptoms and dedicated MRI brain can be performed for further evaluation. CTA Neck With Contrast 1. Limited study as above. No definite gross tim w-limiting internal carotid artery or vertebral stenosis detected. 2. Emphysema. Small right pleural effusion. A 9. 0 mm irregular left upper lobe pulmonary lesion is present and adjac ent 3.0 mm pulmonary nodule is present. Please refer to CT chest report for additional details. Impression By: Lety Schaefer M.D. CAT SCAN - CTA CHEST FOR PE 03/25 1456 Report Impression - Status: SIGNED Entered: 03/25/2022 1606 IMPRESSION: 1. No evidence for acute pulmonary thromboemboli sm. 2. Bilateral pleural effusions with presence of right lower lobe pneumonitis. 3. Bronchomalacia. 4. Multiple nodules in the lungs. Is there histo ry of primary neoplasm? 5. Patchy pneumonitis in the right middle lobe. 6. Right hilar lymph node. Impression By: [email or web address] Chi Landers CAT SCAN - CT ANGIO NECK 03/25 1456 Report Impression - Status: SIGNED Entered: 03/25/2022 1515 IMPRESSION: CTA Head With Contrast, Arteriography No definite acute major large vessel branch occl usion or flow-limiting intracranial stenosis. Please pamela elate with neurologic symptoms and dedicated MRI brain can be performed for further evaluation. CTA Neck With Contrast 1. Limited study as above. No definite gross tim w-limiting internal carotid artery or vertebral stenosis detected. 2. Emphysema. Small right pleural effusion. A 9. 0 mm irregular left upper lobe pulmonary lesion is present and adjac ent 3.0 mm pulmonary nodule is present. Please refer to CT chest report for additional details. Impression By: Lety Schaefer M.D. Treatment plan: consult, cont current regimen/do se Regimen: HPI: Michaela Matias is an 81 year old female with a past medical history of vascular dementia, CAD, diabetes mellitu s, hypertension, heart failure, aortic regurgitation, and CKD stage III who presented to an outside hospital with chest pain. She was found to have MRSA bacteremia. The patient became hypotensive requiring vasopressors and was subsequen tly admitted to ICU. Pharmacy has been consulted for the dosing and monitoring of vanco mycin. Requesting Provider: Dr. Trevon MCKINNON Consult: Dr. Liban Lombardo Indication: Bacteremia Vancomycin AUC Goal: 400-600 mcg*hr/mL Concomitant Antibiotics: * Ceftaroline 600 mg IV q8h (03/25 - Present) 03/26 Assessment and Plan Labs and Vitals: * WBC 17.7 (elevated and increasing) * Afebrile with a Tmax of 36.9 C over the past 2 4 hours Renal Function: * BUN/SCr 9/0.7 (decrease in BUN from 18 yesterd ay; SCr stable) * Urine output: 750 mL, 3 un quantified + 3 incontinent voids documented over the past 24 hr * Estimated CrCl 53 mL/min (using actual body we ight) Microbiology: * 03/23: MRSA Nasal Screen - Negative * 03/23: Blood Cultures x2 - MRSA * 03/24: Blood Cultures x2 - Gram positive cocci in clusters * 03/26: Blood Cultures - Pending Imaging: * 03/24: IGLESIA - Vegetation on pulmonic valve abou t 1.1 cm Dosing and Monitoring: * The patient was initially loaded with vancomyc in 1000 mg IV x1 and subsequently initiated on vancomycin 750 mg IV q 24h * A vancomycin trough on at 2140 was 17.1 mcg/mL ( 22 hours from previous dose) * A vancomycin peak on 03/26 at 0130 was 25.2 mcg/mL (drawn early at 39 minutes after the end of the infusion) * The true trough was calculated to be 16.6 mcg/ mL (but this is only after 2 doses of the maintenance vancomycin regimen) * The dose of vancomycin was subsequently reduce d to 500 mg IV q24h * Will continue current therapy and plan to rech bruce vacomycin peak and trough level after the 3rd dose of this regimen change (tentative peak on 03/29 at 0130 and trough on 03/29 at 2230, but not yet ordered ) * The pharmacist will contin ue to follow along and adjust the dose as clinically indicated at 0708 RPT #:[id number] END OF REPORT 2022-03-25 18:34:00-00:00 [facility] ([facility]) Critical Care Progress Note REPORT#:[id number] REPORT STATUS: Signed DATE:03/25/22 TIME: 1834 PATIENT: MICHAELA MATIAS UNIT #: [id number] ROOM/BED: [place] [address] : 41 AGE: 81 SEX: F ATTEND: Josiane Wisdom MD ADM AUTHOR: Bruce Durham MD * ALL edits or amendments must be made on the el [employer]/computer document * Subjective HPI: Patient seen and examined in medical ICU room #310 and discussed during MDR this morning. She was admitted with MRSA bact eremia and vegetation on the pulmonary valve. Underwent contrast esophageal echocardiog mei that revealed vegetation. She has been eating poorly. Speech cleared her f or pur ed diet. Patient has peripheral access. Central venous catheter from the femoral vein has been discontinued. No history of prosthesis implantat ion. Patient is on vancomycin and ceftazidime with dual antibiotic coverage fo r MRSA. ID is following. Will reculture in the next 24 hours. Later in the day patient developed aphasia in the backdrop of accelerated hypertension and tac hycardia. She was given metoprolol 5 mg IV to bring the heart rate down from 148 203 and blood pressure from 192/112-137/62 mmHg. There was concern for watershed infarct. CT head without contrast, CT angiogram of the head and n bruce and CTA PE protocol were performed that were inconclusive. At the end of the study patient was able to phonate and express her name. She remains nonfoc al. Was able to move all 4 extremities. No facial droop or drift was identi fied. Michaela Matias is a 81-year-old female, w ith past medical history of coronary artery disease, his tory of CABG in the , diabetes mellitus type 2, hypertension, dementia, stage III CKD, who was t ransferred from [facility] for septic shock. Patient was recently hospitalized at that hospital for chest pain at that time and sh e was offered to have cardiac catheterization which she declined. Patient was called back as blood cultures done during that admission w ere positive for MRSA so she was hospitalized again and started on IV antibiotics for 1 week and then discharged on antibiotics at home for another 2 weeks. However, patient prese nted again to the emergency department at [facility] as he started to feel weak again and was spiking fevers again. Patient had a femoral central venous cath eter inserted and was started on Levophed there. On arrival to our ICU, patien t noted to have normal blood pressure not requiring pressors. Overnight, tex ent started having chills and rigors. Patient is full code. Review of Systems Constitutional: Reports: chills, fatigue, fever, generalized wea kness. Denies: lethargy, malaise. Skin: Denies: diaphoresis, ecchymosis, itching. Allergy/Immun: Denies: anaphylaxis, hives. Eyes: Denies: redness, discharge. ENT: Denies: nose bleeding, throat swelling, tongue s welling. Respiratory: Denies: DEE (dyspnea on exertion), hemoptysis, S OB, wheezing. Cardiovascular: Denies: chest pain, DEE (dyspnea on exertion), e terra. GI: Denies: hematemesis, hematochezia. : Denies: hematuria, nocturia. Heme: Denies: bleeding, bruising. Endocrine: Denies: polydipsia, polyphagia. Neuro: Reports: change in LOC, conf usion, weakness. Denies: bladder dysfunction, bowel dysfunction, dizziness, seizure. Psych: Reports: change in mental status. Denies: agitat ion. Objective General VS/I O Last Documented: Result Date Time Pulse Ox 100 03/25 1630 B/P 122/58 03/25 1630 B/P Mean 84 03/25 1630 Pulse 84 03/25 1630 Resp 22 03/25 1630 Temp 36.9 03/25 1600 O2 Delivery Room air 03/24 1022 O2 Flow Rate 2 03/24 0800 24 hour I O ending at 0700: 03/25 0700 03/24 1900 Intake Total 75 1766.00 Output Total Balance 75 1766.00 Intake, IV 1526.00 Intake, Oral 75 240 Number 1 3 Incontinent Voids Patient 52 kg Weight Weight Bed scale Measurement Method PATIENT WEIGHT: Weight (lb): 114 Weight (oz): 10.25 Weight (kg): 52.000 Medications: Active Meds + DC'd Last 24 Hrs Metoprolol Tartrate (LOPRESSOR) 25 MG Q12HR PO Iopamidol (ISOVUE-300 100ML) 150 ML .STK-MED ONE IV (DC) Metoprolol Tartrate (LOPRESSOR) 5 MG STAT STA IV (DC) Metoprolol Tartrate (LOPRESSOR) 0 .STK-MED ONE I V (DC) Acetaminophen (TYLENOL) 650 MG Q4H PRN PRN RECTA L Nitroglycerin (NITROSTAT) 0.4 MG STAT STA SL (DC ) Hydralazine HCl (APRESOLINE) 10 MG Q6H PRN PRN I V Ceftaroline Fosamil (TEFLARO) 600 MG Q8H IV (CKD ) Sodium Chloride (SODIUM CHLORIDE 0.9%) 100 ML Enoxaparin Sodium (lovENOX) 30 MG Q24H SUBQ Vancomycin HCl (VANCOMYCIN HCL) 750 MG Q24H IV Sodium Chloride (SODIUM CHLORIDE 0.9%) 250 ML Lactated Ringer's (LACTATED RINGERS) 1,000 ML .Q 10H IV (DC) Mupirocin (BACTROBAN 2% 22 GM OINTMENT) 1 APPLIC BID NASAL Calcium Gluconate/Sodium Chloride (Calcium Gluco alexia 1 GM/NS 50 mL) 50 ML ASDIR PRN IV Calcium Gluconate/Sodium Chloride (Calcium Gluco alexia 2 GM/NS 100 mL) 100 ML ASDIR PRN IV Lactated Ringer's (LACTATED RINGERS) 1,000 ML GILLIAN MARTY IV Magnesium Sulfate (MAGNESIUM SULFATE 2GM/SWFI 50 ML) 50 ML ASDIR PRN IV Potassium Chloride (KCL 20MEQ/SWFI 100ML) 100 ML ASDIR PRN IV Potassium Chloride (POTASSIUM CHLORIDE 20MEQ TAB .ER) 20 MEQ ASDIR PRN PO Potassium Chloride (POTASSIUM CHLORIDE 20MEQ TAB .ER) 40 MEQ ASDIR PRN PO Potassium Phosphate (POTASSIUM PHOSPHATE) 15 MM ASDIR PRN IV (CKD) Sodium Chloride (SODIUM CHLORIDE 0.9%) 100 ML Potassium Phosphate (POTASSIUM PHOSPHATE) 20 MM ASDIR PRN IV (CKD) Sodium Chloride (SODIUM CHLORIDE 0.9%) 250 ML Potassium Phosphate (POTASSIUM PHOSPHATE) 30 MM ASDIR PRN IV (CKD) Sodium Chloride (SODIUM CHLORIDE 0.9%) 250 ML Sodium Phosphate (SODIUM PHOSPHATE) 15 MMOL ASDI R PRN IV (CKD) Sodium Chloride (SODIUM CHLORIDE 0.9%) 100 ML Sodium Phosphate (SODIUM PHOSPHATE) 20 MMOL ASDI R PRN IV (CKD) Sodium Chloride (SODIUM CHLORIDE 0.9%) 250 ML Sodium Phosphate (SODIUM PHOSPHATE) 30 MMOL ASDI R PRN IV (CKD) Sodium Chloride (SODIUM CHLORIDE 0.9%) 250 ML Benzocaine/Butamben/Tetracaine HCl (CETACAINE) 1 APPLIC ASDIR PRN MM (DC ) Fentanyl Citrate (SUBLIMAZE) 100 MCG ASDIR PRN I V (DC) Flumazenil (ROMAZICON) 0.2 MG ASDIR PRN IV (DC) Midazolam HCl (VERSED) 2 MG ASDIR PRN IV (DC) Naloxone HCl (NARCAN) 0.4 MG ASDIR PRN IV (DC) Acetaminophen (TYLENOL) 650 MG Q4H PRN PRN PO Ondansetron HCl (ZOFRAN) 4 MG Q4H PRN PRN IV Dextrose/Water (DEXTROSE 50% W SYRINGE) 25 ML DIR PRN IV (CKD) Dextrose/Water (DEXTROSE 50% W SYRINGE) 50 ML DIR PRN IV (CKD) Glucagon (GLUCAGON) 1 MG ASDIR PRN IM Insulin Human Lispro (HUMALOG) 0 AC HS SUBQ Miscellaneous Information (VANCOMYCIN PHARMACY T O DOSE) 1 EACH ASDIR IV (CKD) Physical Exam General appearance: altered mental statu s, frail, awake, no acute distress, no respiratory distress Head/eyes: atraumatic, clear cornea, normocephal ic, PERRL ENT: moist mucosal membranes Neck: non-tender, normal thyroid, no JVD, no mas ses or swelling Cardiovascular: tachycardia, normal capillary re fill, normal heart sounds Respiratory: aerating well, clear to auscultatio n, symmetric expansion, no distress Abdomen: soft, non-tender, no distention, no gua rding Extremities: moves all, normal capillary refill, no clubbing, no cyanosis, no edema 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, no motor defic its Considered stroke alert: yes Skin: dry, intact, normal color Psychiatry: unable to evaluate Results Findings/data: Laboratory Tests 03/25 03/25 03/25 03/25 03/25 1635 1415 1415 1159 0831 Chemistry POC Glucose (70 - 110 MG/DL) 84 96 89 Hemoglobin A1c (4.8 - 6.0 %A1C) 6.0 Triglycerides (40 - 150 mg/dL) 143 Cholesterol (<200 mg/dL) 76 LDL Cholesterol Measurd (0 - 100 mg/dL) 38.5 HDL Cholesterol (39 - 96 mg/dL) < 20.0 L Cholesterol/HDL Ratio (3.27 - 4.44 3.00 L RATIO) 03/25 Chemistry Sodium (134 - 147 mEq/L) 141 Potassium (3.4 - 5.0 mEq/L) 3.7 Chloride (100 - 108 mEq/L) 112 H Carbon Dioxide (21 - 33 mEq/l) 22 Anion Gap (0 - 20) 11 BUN (7 - 18 mg/dL) 18 Creatinine (0.6 - 1.3 mg/dL) 0.8 Glomerular Filtr Rate (70 - 80) 69.0 L Glucose (70 - 110 mg/dL) 106 POC Glucose (70 - 110 MG/DL) 109 Calcium (8.0 - 10.5 mg/dL) 8.6 Phosphorus (2.5 - 4.9 MG/DL) 2.5 Magnesium (1.80 - 2.40 mg/dL) 1.63 L Total Bilirubin (0.0 - 1.0 mg/dL) 0.40 AST (15 - 37 IUnit/L) 23 ALT (30 - 65 IUnit/L) 10 L Total Alk Phosphatase (20 - 125 IUnit/L) 100 Troponin I High Sens (0 - 34 ng/L) 74 H Total Protein (6.4 - 8.2 g/dL) 6.0 L Albumin (3.4 - 5.0 g/dL) 2.70 L Laboratory Tests 03/25 412 Hematology WBC (4.5 - 11.0 x10 3/uL) 15.1 H RBC (3.54 - 5.02 x10 6/uL) 3.48 L Hgb (11.0 - 15.0 g/dL) 9.9 L Hct (33.0 - 45.0 %) 30.8 L MCV (81.0 - 99.0 fL) 88.5 MCH (27.0 - 33.0 pg) 28.4 MCHC (33.0 - 37.0 g/dL) 32.1 L RDW (11.5 - 14.5 %) 15.8 H Plt Count (150 - 400 x10 3/uL) 125 L MPV (7.0 - 9.0 fL) 12.7 H Neut % (Auto) (56.0 - 77.0 %) 77.6 H Lymph % (Auto) (14.0 - 32.0 %) 14.0 Phelps % (Auto) (4.8 - 9.0 %) 6.0 Eos % (Auto) (0.3 - 3.7 %) 1.1 Baso % (Auto) (0.0 - 2.0 %) 0.2 Neut # (Auto) (2.0 - 7.6 x10 3/uL) 11.70 H Lymph # (Auto) (1.0 - 3.8 x10 3/uL) 2.11 Phelps # (Auto) (0.1 - 0.8 x10 3/uL) 0.90 H Eos # (Auto) (0.0 - 0.2 x10 3/uL) 0.17 Baso # (Auto) (0.0 - 0.2 x10 3/uL) 0.03 Abs Immat Gran (auto) (0.00 - 0.03 x10 3/uL) 0. 16 H Add Manual Diff NO Immature Gran % (0.0 - 2.0 %) 1.1 Nucleated RBC % (0 - 0 %) 0.0 Nucleated RBCs # (Man) (0.0 - 0.1 x10 3/uL) 0.0 0 Laboratory Tests 03/25/22 0412: [Embedded Image Not Available] Microbiology: 03/24 1200 BLOOD: Blood Culture - RES 03/24 1200 BLOOD: Blood Culture Gram Stain - RES 03/24 1200 BLOOD: Blood Culture - RES 03/24 1200 BLOOD: Blood Culture Gram Stain - RES 03/23 2235 BLOOD: Blood Culture - RES COAG POS STAPHYLOCOCCUS 03/23 2235 BLOOD: Blood Culture Gram Stain - RES 03/23 2215 BLOOD: Blood Culture - RES COAG POS STAPHYLOCOCCUS 03/23 2215 BLOOD: Blood Culture Gram Stain - RES 03/23 1950 NASAL: MRSA DNA Surveillance Screen - COMP Radiology data Recent Impressions: CAT SCAN - CT HEAD/BRAIN W/O CONT 03/25 1453 Report Impression - Status: SIGNED Entered: 03/25/2022 2048 IMPRESSION: 1. There is no acute intracranial process. 2. There is mild ventriculomegaly secondary to w eric matter volume loss. There is no hydrocephalus. 3. There is mild generalized brain parenchymal v olume loss. ASSESSMENT: ASPECTS (Beatris Stroke Program Early CT Score) is 10. Impression By: [email or web address] - Casey Blunck, D.O. CAT SCAN - CT ANGIO HEAD 03/25 1455 Report Impression - Status: SIGNED Entered: 03/25/2022 1515 IMPRESSION: CTA Head With Contrast, Arteriography No definite acute major large vessel branch occl usion or flow-limiting intracranial stenosis. Please pamela elate with neurologic symptoms and dedicated MRI brain can be performed for further evaluation. CTA Neck With Contrast 1. Limited study as above. No definite gross tim w-limiting internal carotid artery or vertebral stenosis detected. 2. Emphysema. Small right pleural effusion. A 9. 0 mm irregular left upper lobe pulmonary lesion is present and adjac ent 3.0 mm pulmonary nodule is present. Please refer to CT chest report for additional details. Impression By: Lety Schaefer M.D. CAT SCAN - CTA CHEST FOR PE 03/25 1456 Report Impression - Status: SIGNED Entered: 03/25/2022 1606 IMPRESSION: 1. No evidence for acute pulmonary thromboemboli sm. 2. Bilateral pleural effusions with presence of right lower lobe pneumonitis. 3. Bronchomalacia. 4. Multiple nodules in the lungs. Is there histo ry of primary neoplasm? 5. Patchy pneumonitis in the right middle lobe. 6. Right hilar lymph node. Impression By: [email or web address] Chi Landers CAT SCAN - CT ANGIO NECK 03/25 1456 Report Impression - Status: SIGNED Entered: 03/25/20221514 IMPRESSION: CTA Head With Contrast, Arteriography No definite acute major large vessel branch occl usion or flow-limiting intracranial stenosis. Please pamela elate with neurologic symptoms and dedicated MRI brain can be performed for further evaluation. CTA Neck With Contrast 1. Limited study as above. No definite gross tim w-limiting internal carotid artery or vertebral stenosis detected. 2. Emphysema. Small right pleural effusion. A 9. 0 mm irregular left upper lobe pulmonary lesion is present and adjac ent 3.0 mm pulmonary nodule is present. Please refer to CT chest report for additional details. Impression By: Lety Schaefer M.D. Results: labs reviewed, vital signs revi ewed, rhythm personally rev'd, current med profile rev'd Diagnosis, Assessment Plan Free text A P: Problem list: Neuro: Patient has dementia. Monitor. Cardiogram Patient has history of coronary artery disease s tatus post CABG in 1989. Now, patient is hemodynamically stable. For IGLESIA tomorrow as per cardiology to evaluate f or endocarditis. Pulmonary: Patient is hypoxic. Chest x-ray is not impressiv e. Provide supplemental oxygen as needed to maintain oxygen saturation between 92 to 95%. GI: Liver enzymes were elevated on admission, monito r. Tolerating p.o. diet. Renal: Patient reported to have CKD stage III. Creatini ne normal on admission. Monitor BUN, creatinine. Monitor intake output. Monitor electrolytes and replace as needed. Endocrine: Patient has diabetes mellitus managed with diet. Monitor blood sugar. ID: Patient has MRSA bacteremia that failed 3 weeks of IV antibiotic treatment. Patient also has new onset CHF and new mitral re gurgitation suspicious for infective endocarditis. Patient for IGLESIA tomorrow morning. We will start the patient on vancomycin and cefe pime for now. Will obtain blood cultures and MRSA screen. Heme-onc: Patient has normocytic anemia, monitor and trans fuse as needed. Lovenox for DVT prophylaxis. Critical care time 45 minutes excluding any proc edure time. 03/25/2022 Assessment and plan: Patient seen and examined in medical ICU room #310 and discussed during MDR this morning. She was admitted with MRSA bact eremia and vegetation on the pulmonary valve. Underwent contrast esophageal echocardiog mei that revealed vegetation. She has been eating poorly. Speech cleared her f or pur ed diet. Patient has peripheral access. Central venous catheter from the femoral vein has been discontinued. No history of prosthesis implantat ion. Patient is on vancomycin and ceftazidime with dual antibiotic coverage fo r MRSA. ID is following. Will reculture in the next 24 hours. Later in the day patient developed aphasia in the backdrop of accelerated hypertension and tac hycardia. She was given metoprolol 5 mg IV to bring the heart rate down from 148 203 and blood pressure from 192/112-137/62 mmHg. There was concern for watershed infarct. CT head without contrast, CT angiogram of the head and n bruce and CTA PE protocol were performed that were inconclusive. At the end of the study patient was able to phonate and express her name. She remains nonfoc al. Was able to move all 4 extremities. No facial droop or drift was identi fied. Michaela Matias is a 81-year-old female, w ith past medical history of coronary artery disease, his tory of CABG in the , diabetes mellitus type 2, hypertension, dementia, stage III CKD, who was t ransferred from [facility] for septic shock. Patient was recently hospitalized at that hospital for chest pain at that time and sh grzegorz was offered to have cardiac catheterization which she declined. Patient was called back as blood cultures done during that admission w ere positive for MRSA so she was hospitalized again and started on IV antibiotics for 1 week and then discharged on antibiotics at home for another 2 weeks. However, patient prese nted again to the emergency department at [facility] as he started to feel weak again and was spiking fevers again. Patient had a femoral central venous cath eter inserted and was started on Levophed there. On arrival to our ICU, robbie t noted to have normal blood pressure not requiring pressors. Overnight, tex ent started having chills and rigors. Patient is full code. Patient was admitted with MRSA bacteremia and fo und to have pulmonary valve vegetation Patient developed significant tachycardia and hy pertensive urgency Tachycardia and hypertensive urgency was treated with metoprolol 5 mg IV x1 dose Heart rate was 140 with a blood pressure of 190/ 112 mmHg 8 responded to metoprolol IV and subsequent hear t rate was 102 with a blood pressure of 137/62 mmHg Patient developed aphasia Concern for watershed infarct versus paradoxical CVA No mention of PFO on the IGLESIA Code stroke was called Patient was seen by Dr. Barahona CT head without contrast, CT A of the head and neck and CT chest PE protocol were ordered No evidence of stroke or pulmonary embolism/sept ic embolism was found Patient continues on 2 antibiotics including van comycin and ceftaradine Sodium is improved to 141 Magnesium is low at 1.6 and patient received 2 g of magnesium sulfate Patient is on room air Femoral central venous catheter has been removed Patient has peripheral access We will recheck blood cultures in the next 24 ho urs No history of prosthesis or devices Speech evaluation performed Patient is okay for pur ed diet Eating is poor Follow neuro status with neurochecks every hour DVT prophylaxis Bruce Durham MD FACP [facility] 03/25/2022 6.41 PM Consultants: cardiology, critical/intens ivist, hospitalist, infectious disease Code status: full code Plan discussed with: nurse, interdisc care team, pharmacy/pharmacist Critical care time: Minutes: 45 Quality: Gen Med Crit Care VTE Prophylaxis VTE prophylaxis initiated: yes Current Medications Current medication review: I attest that the foregoing medication list in t he medical record is true, accurate, and complete to the best of my knowled ge. Advanced Care Plan 65 or Older Discussed with: surrogate decis. maker Discussion included: code status Electronically Signed by Bruce Durham MD on 04/07 at 1845 RPT #:[id number] END OF REPORT 2022-03-25 15:44:00-00:00 [facility] ([facility]) Neurology Consultation Note REPORT#:[id number] REPORT STATUS: Signed DATE:03/25/22 TIME: 154 PATIENT: MICHAELA MATIAS UNIT #: [id number] ROOM/BED: [place] [address] : 41 AGE: 81 SEX: F ATTEND: Josiane Wisdom MD ADM AUTHOR: Rodrick Barahona MD * ALL edits or amendments must be made on the [employer]/computer document * History of Present Illness Stroke Alert Last known normal: Date: 03/25/22 Time: 1400 Stroke team activated: yes Considered stroke alert: yes HPI Requesting clinician: Radha Wisdom Reason for consult: stroke alert PCP: PCP: No Primary or Family Physician HPI: This patient is a 81-year-old female with histor y of vascular dementia hospitalized for septic shock in the setting of bacterial endocarditis of the pulmonic valve presenting for evaluation of new onset aphasia and right-sided weakness. The patient had sudden onset right-khurram ed weakness and difficulty speaking sometime between 2 and 3 PM today, and a stroke alert was activated. The patient was taken for no ncontrast CT scan of the head which not reveal acute abnormalities and CT angio head and neck did not demonstrate evidence of large vessel occlusion. By the time he returned to the patient's room the patient's symptoms had resolved and she was again speaking and moving all 4 extremities. Patient not a candidate for tPA given bacterial endocarditis and no evidence of LVO amenable to mechanical thrombectomy. History - Adult longitudinal Additional medical history: CAD, low EF, vascular dementia, aortic regurg, s tage III CKD, HTN. Additional surgical history: CABG 1990 hysterectomy Additional family history: not relavent to current illness Alcohol use: Denies EtOH use Drug use: Denies recreational drugs Smoking status: Smoking status for patients 13 years old or old er: Former Smoker Allergies: Coded Allergies: meperidine (NAUSEA VOMITING 03/23/22) Objective General VS: Last Documented: Result Date Time Pulse Ox 96 03/25 1515 B/P 121/58 03/25 1515 B/P Mean 84 03/25 1515 Pulse 88 03/25 1515 Resp 28 03/25 1515 Temp 36.5 03/25 1200 O2 Delivery Room air 03/24 1022 O2 Flow Rate 2 03/24 0800 PATIENT WEIGHT: Weight (lb): 114 Weight (oz): 10.25 Weight (kg): 52.000 Medications Current Home Medications CARVEDILOL (COREG) 3.125 MG PO ONCE LISINOPRIL (ZESTRIL) 2.5 MG PO DAILY ROSUVASTATIN (CRESTOR) 40 MG PO DAILY FLUoxetine (PROzac) 20 MG PO DAILY OMEPRAZOLE ER 20 MG PO DAILY OXYBUTYNIN (DITROPAN) 5 MG PO ONCE MEMANTINE (NAMENDA) 10 MG PO DAILY MEMANTINE (NAMENDA) 10 MG PO DAILY Active Meds + DC'd Last 24 Hrs Metoprolol Tartrate (LOPRESSOR) 25 MG Q12HR PO Iopamidol (ISOVUE-300 100ML) 150 ML .STK-MED ONE IV (DC) Metoprolol Tartrate (LOPRESSOR) 5 MG STAT STA IV (DC) Metoprolol Tartrate (LOPRESSOR) 0 .STK-MED ONE I V (DC) Acetaminophen (TYLENOL) 650 MG Q4H PRN PRN RECTA L Nitroglycerin (NITROSTAT) 0.4 MG STAT STA SL (DC ) Hydralazine HCl (APRESOLINE) 10 MG Q6H PRN PRN I V Ceftaroline Fosamil (TEFLARO) 600 MG Q8H IV (CKD ) Sodium Chloride (SODIUM CHLORIDE 0.9%) 100 ML Enoxaparin Sodium (lovENOX) 30 MG Q24H SUBQ Vancomycin HCl (VANCOMYCIN HCL) 750 MG Q24H IV Sodium Chloride (SODIUM CHLORIDE 0.9%) 250 ML Lactated Ringer's (LACTATED RINGERS) 1,000 ML .Q 10H IV (DC) Mupirocin (BACTROBAN 2% 22 GM OINTMENT) 1 APPLIC BID NASAL Calcium Gluconate/Sodium Chloride (Calcium Gluco alexia 1 GM/NS 50 mL) 50 ML ASDIR PRN IV Calcium Gluconate/Sodium Chloride (Calcium Gluco alexia 2 GM/NS 100 mL) 100 ML ASDIR PRN IV Lactated Ringer's (LACTATED RINGERS) 1,000 ML GILLIAN MARTY IV Magnesium Sulfate (MAGNESIUM SULFATE 2GM/SWFI 50 ML) 50 ML ASDIR PRN IV Potassium Chloride (KCL 20MEQ/SWFI 100ML) 100 ML ASDIR PRN IV Potassium Chloride (POTASSIUM CHLORIDE 20MEQ TAB .ER) 20 MEQ ASDIR PRN PO Potassium Chloride (POTASSIUM CHLORIDE 20MEQ TAB .ER) 40 MEQ ASDIR PRN PO Potassium Phosphate (POTASSIUM PHOSPHATE) 15 MM ASDIR PRN IV (CKD) Sodium Chloride (SODIUM CHLORIDE 0.9%) 100 ML Potassium Phosphate (POTASSIUM PHOSPHATE) 20 MM ASDIR PRN IV (CKD) Sodium Chloride (SODIUM CHLORIDE 0.9%) 250 ML Potassium Phosphate (POTASSIUM PHOSPHATE) 30 MM ASDIR PRN IV (CKD) Sodium Chloride (SODIUM CHLORIDE 0.9%) 250 ML Sodium Phosphate (SODIUM PHOSPHATE) 15 MMOL ASDI R PRN IV (CKD) Sodium Chloride (SODIUM CHLORIDE 0.9%) 100 ML Sodium Phosphate (SODIUM PHOSPHATE) 20 MMOL ASDI R PRN IV (CKD) Sodium Chloride (SODIUM CHLORIDE 0.9%) 250 ML Sodium Phosphate (SODIUM PHOSPHATE) 30 MMOL ASDI R PRN IV (CKD) Sodium Chloride (SODIUM CHLORIDE 0.9%) 250 ML Benzocaine/Butamben/Tetracaine HCl (CETACAINE) 1 APPLIC ASDIR PRN MM (DC ) Fentanyl Citrate (SUBLIMAZE) 100 MCG ASDIR PRN I V (DC) Flumazenil (ROMAZICON) 0.2 MG ASDIR PRN IV (DC) Midazolam HCl (VERSED) 2 MG ASDIR PRN IV (DC) Naloxone HCl (NARCAN) 0.4 MG ASDIR PRN IV (DC) Acetaminophen (TYLENOL) 650 MG Q4H PRN PRN PO Ondansetron HCl (ZOFRAN) 4 MG Q4H PRN PRN IV Dextrose/Water (DEXTROSE 50% W SYRINGE) 25 ML DIR PRN IV (CKD) Dextrose/Water (DEXTROSE 50% W SYRINGE) 50 ML DIR PRN IV (CKD) Glucagon (GLUCAGON) 1 MG ASDIR PRN IM Insulin Human Lispro (HUMALOG) 0 AC HS SUBQ Miscellaneous Information (VANCOMYCIN PHARMACY T O DOSE) 1 EACH ASDIR IV (CKD) Nutrition assessment: The data set between the solid lines has been im ported from the dietitian's assessment. Any exceptions have been noted under Provider comments. BMI Calculated: 21.9 Nutrition related diagnosis: Nutrition diagnosis details: Nutrition problem: Nutrition etiology: Nutrition signs and symptoms: Nutrition prescription: Dietitian name: Assessment completed: Provider comments on imported dietitian assessme nt: Physical Exam Neuro comment: GEN: Elderly, chronically ill-appearing, thin CVS: Tachycardic CHEST: No signs of resp distress, on room air ABD: Soft, NTTP NEURO MENTAL STATUS: The patient is oriented to self. She is awake and alert. Follows one-step commands. LANG/SPEECH: Paucity of speech. Able to tell me her name, name objects, and speak in 1-2 word sentences. Not clearly aphasic . No clear dysarthria. CRANIAL NERVES: II: Pupils equal and reactive, no RAPD, no VF de ficits, normal fundus III, IV, : EOM intact, no gaze preference or d eviation, no nystagmus. V: normal sensation in V1, V2, and V3 segments b ilaterally VII: no asymmetry, no nasolabial fold flattening VIII: normal hearing to speech IX, X: normal palatal elevation, no uvular devia tion XI: 5/5 head turn and 5/5 shoulder shrug bilater ally XII: midline tongue protrusion MOTOR: The patient is weakly antigravity in all 4 extre mities REFLEXES: 2/4 throughout, extensor plantar respo nse in left lower extremity, flexor plantar response in right lower e xtremity, 2 beat ankle clonus in right lower extremity. SENSORY: Normal to touch No hemineglect, no extinction to double sided st imulation (visual tactile) Romberg absent COORD: Does not participate with coordination te sting Diagnosis, Assessment Plan Free Text DxA P Notes Free text DxA P notes: This patient is a 81-year-old female with histor y of vascular dementia hospitalized for septic shock in the setting of bacterial endocarditis of the pulmonic valve presenting for evaluation of new onset aphasia and right-sided weakness. TIA Vascular dementia Septic shock Pulmonic bacterial endocarditis -Every 2 hour neurochecks -Goal normotension -Avoid anticoagulants and antithrombotics if pos sible given high risk of hemorrhage related to endocarditis -IV antibiotics managed by infectious disease -Pulmonic vegetation managed by infectious disea se -A1c, lipid panel -MRI brain when clinically stable -Atorvastatin 40 mg daily -May consider starting aspirin 81 mg daily somet hazel in the future given the patient's history of vascular dementia, but no n eed to start at this moment. -PT/OT at 1552 RPT #:[id number] END OF REPORT 2022-03-25 15:39:00-00:00 [facility] Prog.Note-Vancomycin REPORT#:[id number] REPORT STATUS: Signed DATE:03/25/22 TIME: 1539 PATIENT: MICHAELA MATIAS UNIT #: [id number] ROOM/BED: [address] : 41 AGE: 81 SEX: F ATTEND: Josiane Wisdom MD ADM AUTHOR: Alexys Griggs RP h * ALL edits or amendments must be made on the el [employer]/computer document * See Addendum Vancomycin Vancomycin Medication Therapy Goal: AUC 400-600 mcg*hr/mL Indication for treatment: Bacteremia Weight: Actual weight (kg): 52 VS and I/O: Vital Signs Date Temp Pulse Resp B/P B/P Mean Pulse Ox FiO2 03/23-03/25 36.2-37.3 62-192 14-56 89-235/30-12 7 62-170 90-100 72 hours ending at 0700 03/25 0700 03/24 1900 03/24 1900 03/22 07 1900 Intake 75 1766.00 967.50 Total Output 300 Total Balance 75 1766.00 667.50 Intake, IV 1526.00 967.50 Intake, 75 240 Oral Number 1 3 Incontinen t Voids Number 2 Voids Output, 300 Urine Patient 52 kg 44.3 kg Weight Weight Bed scale Bed scale Measuremen t Method 72 Hour I O Total 03/25 0700 03/23 07 Intake Total 1841.00 967.50 Output Total 300 Balance 1841.00 667.50 Labs: Laboratory Test : 03/25 412 Chemistry BUN (7 - 18 mg/dL) 18 Creatinine (0.6 - 1.3 mg/dL) 0.8 Hematology WBC (4.5 - 11.0 x10 3/uL) 15.1 H Microbiology: 03/24 1200 BLOOD: Blood Culture - RES 03/24 1200 BLOOD: Blood Culture Gram Stain - RES 03/24 1200 BLOOD: Blood Culture - RES 03/24 1200 BLOOD: Blood Culture Gram Stain - RES 03/23 2235 BLOOD: Blood Culture - RES COAG POS STAPHYLOCOCCUS 03/23 223 BLOOD: Blood Culture Gram Stain - RES 03/23 2215 BLOOD: Blood Culture - RES COAG POS STAPHYLOCOCCUS 03/23 221 BLOOD: Blood Culture Gram Stain - RES 03/23 1950 NASAL: MRSA DNA Surveillance Screen - COMP Treatment plan: consult, cont current regimen/do se Regimen: HPI: Michaela Matias is an 81 yo female with PMH of vascular dementia, CAD, DM, HTN, HF, aortic regurgitation, CKD stage III who pres ented to OSH with chest pain, found to have MRSA bacteremia. Patient h ypotensive requiring vasopressors, was admitted to ICU. Pharmacy is consulted to dose v ancomycin. Requesting Provider: Trevon Kimball MD Indication: Bacteremia Vancomycin AUC Goal: 400-600 mcg*hr/mL Concomitant Antibiotics: -Ceftaroline 600 mg IV q8h 03/25 A/P: Labs and Vitals: WBC 15.1 (decrease from 20.6) Afebrile with a Tmax of 36.7C over the past 24 hours Renal Function: BUN/SCr 18/0.8 (stable) Urine Output with 3 unquantified voids document over the past 24 hours Estimated CrCl 46 mL/min (using actual body svitlana ght) Microbiology: 03/24 Blood Cx x2: 2/4 GPC 03/23 Blood Cx x2: 3/4 MRSA 03/23 MRSA nasal screen: Negative Imagin/8 IGLESIA: Vegetation on pulmonic valve about 1.1 cm Dosing and Monitoring: -Patient received a loading dose of 1 g and is currently on a maintenance regimen of 750 mg q24h -Patient to get 3rd dose of regimen ton ight, although early will go ahead and order a trough and peak arou nd tonight s dose and calculate AUC due to patient s risk for accumulation and clinical status Pharmacy will continue to monitor Thank you for this consult at 1540 Addendum 1: 03/26/22 0306 by Catherine Alexander h * trough drawn @2140 ( 22 hrs after prev dose); resulted 17.1 mcg/mL * peak drawn @0130 ( 39 min after end of infusio n, drawn too early); resulted 25.2 mcg/mL * true trough 16.6 mcg/mL; while therapeutic, th is is after only two doses * will lower regimen to vanc omycin 500 mg IV q24h and draw a peak and trough at new steady state * pharmacy will continue to follow and adjust as appropriate at 0310 RPT #:[id number] END OF REPORT 2022-03-25 14:51:00-00:00 [facility]) Hospitalist Progress Note REPORT#:[id number] REPORT STATUS: Signed DATE:03/25/22 TIME: 1450 PATIENT: MICHAELA MATIAS UNIT #: [id number] ROOM/BED: [place] [address] : 41 AGE: 81 SEX: F ATTEND: Josiane Wisdom MD ADM AUTHOR: Radha Wisdom MD * ALL edits or amendments must be made on the el [employer] document * Subjective Chief complaint: patient was aphasic during my exam, which is new for her, code stroke called Objective General VS/I O: Vital Signs: Date Time Temp Pulse Resp B/P B/P Pulse O2 O2 Flow FiO2 Mean Ox Delivery Rate 03/25 1830 78 31 147/65 94 98 09/09 1815 78 42 140/62 89 97 09/09 1800 78 20 142/61 88 97 09/09 1745 79 13 136/67 96 98 09/09 1730 79 12 129/62 89 99 09/09 1701 140/59 85 09/09 1630 84 22 122/58 84 100 09/09 1615 85 20 117/56 81 99 09/09 1600 98.4 09/09 1600 86 21 116/55 78 97 09/09 1545 88 23 119/59 83 97 09/09 1530 91 23 119/58 84 96 09/09 1515 88 28 121/58 84 96 09/09 1500 97 25 125/66 89 96 09/09 1446 99 53 132/60 86 97 09/09 1415 100 44 143/65 94 96 09/09 1400 101 56 146/65 93 99 09/09 1355 100 48 116/63 84 99 09/09 1300 101 33 163/70 101 94 09/09 1245 95 45 154/65 93 96 09/09 1230 95 32 144/61 88 98 09/09 1215 94 32 137/62 89 95 09/09 1200 97.7 09/09 1200 83 21 157/66 95 95 09/09 1101 84 26 154/66 95 95 09/09 1000 79 22 155/66 95 93 09/09 0930 81 17 164/70 101 96 09/09 0901 85 22 175/73 105 97 09/09 0800 97.8 09/09 0700 76 21 96 09/09 0400 98.0 09/09 0400 80 21 170/74 107 96 09/09 0300 80 24 179/83 119 97 09/09 0200 79 26 167/72 104 96 09/09 0100 79 24 139/60 87 95 09/09 0000 97.6 09/09 0000 80 23 131/63 90 96 09/08 2300 80 26 116/59 84 94 09/08 2200 75 20 133/58 83 97 03/24 2100 74 22 119/58 83 95 03/24 2000 97.1 03/24 2000 79 19 115/55 79 94 03/24 1900 85 31 134/61 88 95 24 hour I O ending at 0700: 03/25 0703/24 Intake Total 75 1766.00 Output Total Balance 75 1766.00 Intake, IV 1526.00 Intake, Oral 75 240 Number 1 3 Incontinent Voids Patient 52 kg Weight Weight Bed scale Measurement Method PATIENT WEIGHT: Weight (lb): 114 Weight (oz): 10.25 Weight (kg): 52.000 Medications: Active Meds + DC'd Last 24 Hrs Metoprolol Tartrate (LOPRESSOR) 25 MG Q12HR PO Iopamidol (ISOVUE-300 100ML) 150 ML .STK-MED ONE IV (DC) Metoprolol Tartrate (LOPRESSOR) 5 MG STAT STA IV (DC) Metoprolol Tartrate (LOPRESSOR) 0 .STK-MED ONE I V (DC) Acetaminophen (TYLENOL) 650 MG Q4H PRN PRN RECTA L Nitroglycerin (NITROSTAT) 0.4 MG STAT STA SL (DC ) Hydralazine HCl (APRESOLINE) 10 MG Q6H PRN PRN I V Ceftaroline Fosamil (TEFLARO) 600 MG Q8H IV (CKD ) Sodium Chloride (SODIUM CHLORIDE 0.9%) 100 ML Enoxaparin Sodium (lovENOX) 30 MG Q24H SUBQ Vancomycin HCl (VANCOMYCIN HCL) 750 MG Q24H IV Sodium Chloride (SODIUM CHLORIDE 0.9%) 250 ML Lactated Ringer's (LACTATED RINGERS) 1,000 ML .Q 10H IV (DC) Mupirocin (BACTROBAN 2% 22 GM OINTMENT) 1 APPLIC BID NASAL Calcium Gluconate/Sodium Chloride (Calcium Gluco alexia 1 GM/NS 50 mL) 50 ML ASDIR PRN IV Calcium Gluconate/Sodium Chloride (Calcium Gluco alexia 2 GM/NS 100 mL) 100 ML ASDIR PRN IV Lactated Ringer's (LACTATED RINGERS) 1,000 ML GILLIAN MARTY IV Magnesium Sulfate (MAGNESIUM SULFATE 2GM/SWFI 50 ML) 50 ML ASDIR PRN IV Potassium Chloride (KCL 20MEQ/SWFI 100ML) 100 ML ASDIR PRN IV Potassium Chloride (POTASSIUM CHLORIDE 20MEQ TAB .ER) 20 MEQ ASDIR PRN PO Potassium Chloride (POTASSIUM CHLORIDE 20MEQ TAB .ER) 40 MEQ ASDIR PRN PO Potassium Phosphate (POTASSIUM PHOSPHATE) 15 MM ASDIR PRN IV (CKD) Sodium Chloride (SODIUM CHLORIDE 0.9%) 100 ML Potassium Phosphate (POTASSIUM PHOSPHATE) 20 MM ASDIR PRN IV (CKD) Sodium Chloride (SODIUM CHLORIDE 0.9%) 250 ML Potassium Phosphate (POTASSIUM PHOSPHATE) 30 MM ASDIR PRN IV (CKD) Sodium Chloride (SODIUM CHLORIDE 0.9%) 250 ML Sodium Phosphate (SODIUM PHOSPHATE) 15 MMOL ASDI R PRN IV (CKD) Sodium Chloride (SODIUM CHLORIDE 0.9%) 100 ML Sodium Phosphate (SODIUM PHOSPHATE) 20 MMOL ASDI R PRN IV (CKD) Sodium Chloride (SODIUM CHLORIDE 0.9%) 250 ML Sodium Phosphate (SODIUM PHOSPHATE) 30 MMOL ASDI R PRN IV (CKD) Sodium Chloride (SODIUM CHLORIDE 0.9%) 250 ML Benzocaine/Butamben/Tetracaine HCl (CETACAINE) 1 APPLIC ASDIR PRN MM (DC ) Fentanyl Citrate (SUBLIMAZE) 100 MCG ASDIR PRN I V (DC) Flumazenil (ROMAZICON) 0.2 MG ASDIR PRN IV (DC) Midazolam HCl (VERSED) 2 MG ASDIR PRN IV (DC) Naloxone HCl (NARCAN) 0.4 MG ASDIR PRN IV (DC) Acetaminophen (TYLENOL) 650 MG Q4H PRN PRN PO Ondansetron HCl (ZOFRAN) 4 MG Q4H PRN PRN IV Dextrose/Water (DEXTROSE 50% W SYRINGE) 25 ML DIR PRN IV (CKD) Dextrose/Water (DEXTROSE 50% W SYRINGE) 50 ML DIR PRN IV (CKD) Glucagon (GLUCAGON) 1 MG ASDIR PRN IM Insulin Human Lispro (HUMALOG) 0 AC HS SUBQ Miscellaneous Information (VANCOMYCIN PHARMACY T O DOSE) 1 EACH ASDIR IV (CKD) Physical Exam General appearance: chronically ill appearing, c onfused Head/Eyes: atraumatic, normocephalic ENT: normal ear left, normal ear right, normal n ose Neck: full range of motion, no JVD Cardiovascular: normal heart sounds, regular rat e rhythm Respiratory: aerating well, clear to auscultatio n, symmetric expansion, no distress Abdomen: non-tender, normal bowel sounds, soft, no distention Extremities: no clubbing, no cyanosis, no edema 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 Results Findings/Data: Laboratory Tests 03/25 03/25 03/25 03/25 03/25 1635 1415 1415 1159 0831 Chemistry POC Glucose (70 - 110 MG/DL) 84 96 89 Hemoglobin A1c (4.8 - 6.0 %A1C) 6.0 Triglycerides (40 - 150 mg/dL) 143 Cholesterol (<200 mg/dL) 76 LDL Cholesterol Measurd (0 - 100 mg/dL) 38.5 HDL Cholesterol (39 - 96 mg/dL) < 20.0 L Cholesterol/HDL Ratio (3.27 - 4.44 3.00 L RATIO) 03/25 Chemistry Sodium (134 - 147 mEq/L) 141 Potassium (3.4 - 5.0 mEq/L) 3.7 Chloride (100 - 108 mEq/L) 112 H Carbon Dioxide (21 - 33 mEq/l) 22 Anion Gap (0 - 20) 11 BUN (7 - 18 mg/dL) 18 Creatinine (0.6 - 1.3 mg/dL) 0.8 Glomerular Filtr Rate (70 - 80) 69.0 L Glucose (70 - 110 mg/dL) 106 POC Glucose (70 - 110 MG/DL) 109 Calcium (8.0 - 10.5 mg/dL) 8.6 Phosphorus (2.5 - 4.9 MG/DL) 2.5 Magnesium (1.80 - 2.40 mg/dL) 1.63 L Total Bilirubin (0.0 - 1.0 mg/dL) 0.40 AST (15 - 37 IUnit/L) 23 ALT (30 - 65 IUnit/L) 10 L Total Alk Phosphatase (20 - 125 IUnit/L) 100 Troponin I High Sens (0 - 34 ng/L) 74 H Total Protein (6.4 - 8.2 g/dL) 6.0 L Albumin (3.4 - 5.0 g/dL) 2.70 L Laboratory Tests 03/25 412 Hematology WBC (4.5 - 11.0 x10 3/uL) 15.1 H RBC (3.54 - 5.02 x10 6/uL) 3.48 L Hgb (11.0 - 15.0 g/dL) 9.9 L Hct (33.0 - 45.0 %) 30.8 L MCV (81.0 - 99.0 fL) 88.5 MCH (27.0 - 33.0 pg) 28.4 MCHC (33.0 - 37.0 g/dL) 32.1 L RDW (11.5 - 14.5 %) 15.8 H Plt Count (150 - 400 x10 3/uL) 125 L MPV (7.0 - 9.0 fL) 12.7 H Neut % (Auto) (56.0 - 77.0 %) 77.6 H Lymph % (Auto) (14.0 - 32.0 %) 14.0 Phelps % (Auto) (4.8 - 9.0 %) 6.0 Eos % (Auto) (0.3 - 3.7 %) 1.1 Baso % (Auto) (0.0 - 2.0 %) 0.2 Neut # (Auto) (2.0 - 7.6 x10 3/uL) 11.70 H Lymph # (Auto) (1.0 - 3.8 x10 3/uL) 2.11 Phelps # (Auto) (0.1 - 0.8 x10 3/uL) 0.90 H Eos # (Auto) (0.0 - 0.2 x10 3/uL) 0.17 Baso # (Auto) (0.0 - 0.2 x10 3/uL) 0.03 Abs Immat Gran (auto) (0.00 - 0.03 x10 3/uL) 0. 16 H Add Manual Diff NO Immature Gran % (0.0 - 2.0 %) 1.1 Nucleated RBC % (0 - 0 %) 0.0 Nucleated RBCs # (Man) (0.0 - 0.1 x10 3/uL) 0.0 0 Diagnosis, Assessment Plan Free Text DxA P Notes Free text DxA P notes: 81 y/o with dementia/HTN/CAD/CHF/aortic regurge/CKD -stage III/DM who presents with persistent bacteremia (presumed MRSA) causi ng sepsis Infective endocarditis Recurrent gram positive bacteremia -at [facility] son she was on IV vancomycin IGLESIA showed vegetation in the pulmonary valve culture ....MRSA She will need PICC line after blood culture nega tive Septic shock - Resolved patient had septic shock at [facility] req uiring pressors and pt was resussitated with IVF and albumin. Continue to monitor pressure CKD - follow electrolytes, UOP HTN - Per cardiology DVT prophylaxis Lovenox subcu 03/25: on physical exam today aphasia which is shirley den , code stroke called, CT head, no bleeding, discussed with ICC and neuro. ,her symptoms improved (TIA?) discussed with grandughter (Rosemary), and the pat ielianne's . BC again growing MRSA, discussed with mónica Napoles ow on Teflaro and vanco neuro check, will keep in ICU Quality: Gen Med Crit Care VTE Prophylaxis VTE prophylaxis initiated: yes Current Medications Current medication review: I attest that the foregoing medication list in t he medical record is true, accurate, and complete to the best of my knowled ge. Advanced Care Plan 65 or Older Discussed with: surrogate decis. maker Discussion included: code status Electronically Signed by Radha Wisdom MD on at 1900 RPT #:[id number] END OF REPORT 2022-03-25 13:53:00-00:00 [phone] [place] [id number] PATIENT NAME: MICHAELA MATIAS ADMIT DATE: 03/23/22 ACCOUNT NO: [id number] ROOM NO: [facility] AGE: 81 REPORT TYPE: eELECTROCARDIOGRAM REPORT SEX: F ADMITTING PHYSICIAN:Radha Wisdom MD ATTENDING PHYSICIAN:Radha Wisdom MD Order: [id number] Test Reason : C/O CP; HR IN 160'S Test Date/Time Stamp: MonMar 25 2022 13:53:45 Blood Pressure : / mmHG Vent. Rate : 101 BPM Atrial Rate : 101 BPM P-R Int : 126 ms QRS Dur : 096 ms QT Int : 362 ms P-R-T Axes : 066 -19 066 degree s QTc Int : 469 ms Sinus tachycardia Nonspecific ST abnormality Abnormal ECG When compared with ECG of 25-MAR-2022 03:36, No significant change was found Confirmed by SHERRY GONSALES MD ([id number]) on 2 5:53:26 PM Referred By: Radha Wisdom Confirmed by:SHERRY GONSALES MD at 1753 PATIENT NAME: MICHAELA MATIAS 1 2022-03-25 12:47:00-00:00 [id number] [place] [address] PATIENT NAME: MICHAELA MATIAS ADMIT DATE: 03/23/22 ACCOUNT NO: [id number] ROOM NO: [facility] AGE: 81 REPORT TYPE: eELECTROCARDIOGRAM REPORT SEX: F ADMITTING PHYSICIAN:Radha Wisdom MD ATTENDING PHYSICIAN:Radha Wisdom MD Order: [id number] Test Reason : , Test Date/Time Stamp: MonMar 25 2022 12:47:30 Blood Pressure : / mmHG Vent. Rate : 096 BPM Atrial Rate : 096 BPM P-R Int : 102 ms QRS Dur : 088 ms QT Int : 358 ms P-R-T Axes : 052 -13 033 degree s QTc Int : 452 ms Sinus rhythm with short VT Otherwise normal ECG When compared with ECG of 25-MAR-2022 03:36, No significant change was found Confirmed by SHERRY GONSALES MD ([id number]) on 2 5:53:19 PM Referred By: Radha Wisdom Confirmed by:SHERRY GONSALES MD at 1753 PATIENT NAME: MICHAELA MATIAS 1 2022-03-25 12:27:00-00:00 [facility] ([facility]) Cardiology Progress Note REPORT#:[id number] REPORT STATUS: Signed DATE:03/25/22 TIME: 1227 PATIENT: MICHAELA MATIAS UNIT #: [id number] ROOM/BED: [address] : 41 AGE: 81 SEX: F ATTEND: Josiane Wisdom MD ADM AUTHOR: Sherry Gonsales MD * ALL edits or amendments must be made on the el [employer]/computer document * Objective General VS/I O: 24 hour I O ending at 0700: 03/25 0700 09/ 1900 Intake Total 75 1766.00 Output Total Balance 75 1766.00 Intake, IV 1526.00 Intake, Oral 75 240 Number 1 3 Incontinent Voids Patient 52 kg Weight Weight Bed scale Measurement Method Vital Signs: Date Time Temp Pulse Resp B/P B/P Pulse O2 O2 F low FiO2 Mean Ox Delivery Rate 03/25 1200 36.5 09/ 1000 79 22 155/66 95 93 09/ 0930 81 17 164/70 101 96 09/09 0901 85 22 175/73 105 97 09/09 0800 36.6 09/09 0700 76 21 96 09/09 0400 36.7 09/09 0400 80 21 170/74 107 96 09/09 0300 80 24 179/83 119 97 09/09 0200 79 26 167/72 104 96 09/09 0100 79 24 139/60 87 95 09/09 0000 36.4 09/09 0000 80 23 131/63 90 96 09/08 2300 80 26 116/59 84 94 09/08 2200 75 20 133/58 83 97 09/08 2100 74 22 119/58 83 95 09/08 2000 36.2 09/08 2000 79 19 115/55 79 94 09/08 1900 85 31 134/61 88 95 09/08 1845 80 23 139/64 92 92 09/08 1830 83 17 146/67 97 96 09/08 1815 81 24 146/67 96 95 09/08 1730 74 20 137/61 88 95 09/08 1716 79 34 147/65 93 96 09/08 1700 71 42 146/61 88 97 09/08 1645 69 29 142/65 93 97 09/08 1630 69 24 138/62 89 95 09/08 1615 71 25 121/58 83 96 09/08 1600 36.6 09/08 1600 69 22 126/58 84 94 09/08 1500 66 18 139/63 90 95 09/08 1445 68 22 136/65 93 96 09/08 1430 67 24 101/50 72 94 09/08 1415 64 16 96/52 71 95 09/08 1400 62 20 109/52 75 96 09/08 1345 73 18 97/50 70 93 /08 1330 73 19 112/54 78 94 /08 1315 65 24 124/60 86 96 09/08 1300 63 33 115/58 84 96 /08 1245 65 28 120/58 84 98 09/08 1230 67 19 125/60 86 97 PATIENT WEIGHT: Weight (lb): 114 Weight (oz): 10.25 Weight (kg): 52.000 Medications: Active Meds + DC'd Last 24 Hrs Hydralazine HCl (APRESOLINE) 10 MG Q6H PRN PRN IV Ceftaroline Fosamil (TEFLARO) 600 MG Q8H IV (CKD ) Sodium Chloride (SODIUM CHLORIDE 0.9%) 100 ML Enoxaparin Sodium (lovENOX) 30 MG Q24H SUBQ Vancomycin HCl (VANCOMYCIN HCL) 750 MG Q24H IV Sodium Chloride (SODIUM CHLORIDE 0.9%) 250 ML Lactated Ringer's (LACTATED RINGERS) 1,000 ML .Q 10H IV (DC) Mupirocin (BACTROBAN 2% 22 GM OINTMENT) 1 APPLIC BID NASAL Calcium Gluconate/Sodium Chloride (Calcium Gluco alexia 1 GM/NS 50 mL) 50 ML ASDIR PRN IV Calcium Gluconate/Sodium Chloride (Calcium Gluco alexia 2 GM/NS 100 mL) 100 ML ASDIR PRN IV Lactated Ringer's (LACTATED RINGERS) 1,000 ML GILLIAN MARTY IV Magnesium Sulfate (MAGNESIUM SULFATE 2GM/SWFI 50 ML) 50 ML ASDIR PRN IV Potassium Chloride (KCL 20MEQ/SWFI 100ML) 100 ML ASDIR PRN IV Potassium Chloride (POTASSIUM CHLORIDE 20MEQ TAB .ER) 20 MEQ ASDIR PRN PO Potassium Chloride (POTASSIUM CHLORIDE 20MEQ TAB .ER) 40 MEQ ASDIR PRN PO Potassium Phosphate (POTASSIUM PHOSPHATE) 15 MM ASDIR PRN IV (CKD) Sodium Chloride (SODIUM CHLORIDE 0.9%) 100 ML Potassium Phosphate (POTASSIUM PHOSPHATE) 20 MM ASDIR PRN IV (CKD) Sodium Chloride (SODIUM CHLORIDE 0.9%) 250 ML Potassium Phosphate (POTASSIUM PHOSPHATE) 30 MM ASDIR PRN IV (CKD) Sodium Chloride (SODIUM CHLORIDE 0.9%) 250 ML Sodium Phosphate (SODIUM PHOSPHATE) 15 MMOL ASDI R PRN IV (CKD) Sodium Chloride (SODIUM CHLORIDE 0.9%) 100 ML Sodium Phosphate (SODIUM PHOSPHATE) 20 MMOL ASDI R PRN IV (CKD) Sodium Chloride (SODIUM CHLORIDE 0.9%) 250 ML Sodium Phosphate (SODIUM PHOSPHATE) 30 MMOL ASDI R PRN IV (CKD) Sodium Chloride (SODIUM CHLORIDE 0.9%) 250 ML Benzocaine/Butamben/Tetracaine HCl (CETACAINE) 1 APPLIC ASDIR PRN MM (DC ) Fentanyl Citrate (SUBLIMAZE) 100 MCG ASDIR PRN I V (DC) Flumazenil (ROMAZICON) 0.2 MG ASDIR PRN IV (DC) Midazolam HCl (VERSED) 2 MG ASDIR PRN IV (DC) Naloxone HCl (NARCAN) 0.4 MG ASDIR PRN IV (DC) Acetaminophen (TYLENOL) 650 MG Q4H PRN PRN PO Ondansetron HCl (ZOFRAN) 4 MG Q4H PRN PRN IV Dextrose/Water (DEXTROSE 50% W SYRINGE) 25 ML DIR PRN IV (CKD) Dextrose/Water (DEXTROSE 50% W SYRINGE) 50 ML DIR PRN IV (CKD) Glucagon (GLUCAGON) 1 MG ASDIR PRN IM Insulin Human Lispro (HUMALOG) 0 AC HS SUBQ Miscellaneous Information (VANCOMYCIN PHARMACY T O DOSE) 1 EACH ASDIR IV (CKD) Physical Exam General appearance: awake Neck: full range of motion, non-tender, normal thyroid, supple/no meningismus, no bruit/NL carotids, no JVD, no lymphadenopathy , no masses or swelling Cardiovascular: CV assessment: regular rate and rhythm Respiratory: clear to auscultation, no distress Abdomen: non-tender, normal bowel sounds , no distention, no guarding, no mass/ organomegaly, no pulsatile mass, no rebound Upper extremity: UE assessment: normal capillary refill, no ammy a Lower extremity: LE assessment: normal capillary refill, no ammy a Results Findings/Data: Laboratory Tests 03/25 03/25 03/25 03/25 03/24 1159 0831 0412 5572 2042 Chemistry Sodium (134 - 147 mEq/L) 141 Potassium (3.4 - 5.0 mEq/L) 3.7 Chloride (100 - 108 mEq/L) 112 H Carbon Dioxide (21 - 33 mEq/l) 22 Anion Gap (0 - 20) 11 BUN (7 - 18 mg/dL) 18 Creatinine (0.6 - 1.3 mg/dL) 0.8 Glomerular Filtr Rate (70 - 80) 69.0 L Glucose (70 - 110 mg/dL) 106 POC Glucose (70 - 110 MG/DL) 96 89 109 Calcium (8.0 - 10.5 mg/dL) 8.6 Phosphorus (2.5 - 4.9 MG/DL) 2.5 Magnesium (1.80 - 2.40 mg/dL) 1.63 L Total Bilirubin (0.0 - 1.0 mg/dL) 0.40 AST (15 - 37 IUnit/L) 23 ALT (30 - 65 IUnit/L) 10 L Total Alk Phosphatase (20 - 125 100 IUnit/L) Troponin I High Sens (0 - 34 ng/L) 74 H Total Protein (6.4 - 8.2 g/dL) 6.0 L Albumin (3.4 - 5.0 g/dL) 2.70 L 03/24 1708 Chemistry POC Glucose (70 - 110 MG/DL) 82 Laboratory Tests 03/25 0412 Hematology WBC (4.5 - 11.0 x10 3/uL) 15.1 H RBC (3.54 - 5.02 x10 6/uL) 3.48 L Hgb (11.0 - 15.0 g/dL) 9.9 L Hct (33.0 - 45.0 %) 30.8 L MCV (81.0 - 99.0 fL) 88.5 MCH (27.0 - 33.0 pg) 28.4 MCHC (33.0 - 37.0 g/dL) 32.1 L RDW (11.5 - 14.5 %) 15.8 H Plt Count (150 - 400 x10 3/uL) 125 L MPV (7.0 - 9.0 fL) 12.7 H Neut % (Auto) (56.0 - 77.0 %) 77.6 H Lymph % (Auto) (14.0 - 32.0 %) 14.0 Phelps % (Auto) (4.8 - 9.0 %) 6.0 Eos % (Auto) (0.3 - 3.7 %) 1.1 Baso % (Auto) (0.0 - 2.0 %) 0.2 Neut # (Auto) (2.0 - 7.6 x10 3/uL) 11.70 H Lymph # (Auto) (1.0 - 3.8 x10 3/uL) 2.11 Phelps # (Auto) (0.1 - 0.8 x10 3/uL) 0.90 H Eos # (Auto) (0.0 - 0.2 x10 3/uL) 0.17 Baso # (Auto) (0.0 - 0.2 x10 3/uL) 0.03 Abs Immat Gran (auto) (0.00 - 0.03 x10 3/uL) 0. 16 H Add Manual Diff NO Immature Gran % (0.0 - 2.0 %) 1.1 Nucleated RBC % (0 - 0 %) 0.0 Nucleated RBCs # (Man) (0.0 - 0.1 x10 3/uL) 0. 00 Laboratory Tests 03/25 0412 Chemistry Magnesium (1.80 - 2.40 mg/dL) 1.63 L Diagnosis, Assessment Plan Problem List/A P: 1. MRSA bacteremia 2. Sepsis 3. Lactic acidosis 4. Infective endocarditis of pulmonary valve Free Text DxA P Notes Free Text DxA P Notes: 03/24 awake, stable BP , IGLESIA showed veg on pulm valve, ID was informed. IV abx. 03/25 doing well, stable, on IV abx, high BP will star t med, ok to go to tele. Electronically Signed by Sherry Gonsales MD on 0 03/25/22 at 1230 RPT #:[id number] END OF REPORT 2022-03-25 11:09:00-00:00 [facility] ([facility]) Infectious Dis. Progress Note REPORT#:[id number] REPORT STATUS: Signed DATE:03/25/22 TIME: 1109 PATIENT: MICHAELA MATIAS UNIT #: [id number] ROOM/BED: [address] : [address] AGE: 81 SEX: F ATTEND: Josiane Wisdom MD ADM AUTHOR: Liban Lombardo MD * ALL edits or amendments must be made on the el [employer]/computer document * Subjective Chief complaint: recurrent bacteremia HPI: History is obtained from the records the patient is a poor historian. This is an 81-year-old white female patient with history of type 2 diabetes, hypertension and chronic kid lizabeth disease who was admitted to an outside hospital in [place] with chest pain and elevated tro ponins. At that time the family decl ined cardiac cath and the patient was discharged and then readmitted because of positive blood cultur es for MRSA. The patient was sent home on IV antibiotics and received 2 weeks of therapy presumably vancomycin. She then re presented to [facility] ER room with sepsis and the blood cultures were again positive for the same organi sm. She was then transferred to [facility] or [facility]. Today she had a IGLESIA and it shows a pulmonary real ve vegetation. Repeat blood cultures are pending Patient has been started on vancomycin and cefep hazel Patient reports: Yes: feeling better. No: fever, headache, nausea , pain, shortness of breath, vomiting, wheezing. Objective Physical Exam Head/Eyes: atraumatic, clear cornea ENT: moist mucosal membranes, normal dentition Neck: full range of motion, non-tender Cardiovascular: normal heart sounds, regular rat e rhythm Respiratory: clear to auscultation, aerating wel l Abdomen: non-tender, normal bowel sounds Extremities: moves all, normal capillary refill Musculoskeletal: normal inspection, no joint swe lling Results Findings/Data: Laboratory Tests 03/25 03/25 03/25 03/24 03/24 0831 0412 0412 2042 1708 Chemistry Sodium (134 - 147 mEq/L) 141 Potassium (3.4 - 5.0 mEq/L) 3.7 Chloride (100 - 108 mEq/L) 112 H Carbon Dioxide (21 - 33 mEq/l) 22 Anion Gap (0 - 20) 11 BUN (7 - 18 mg/dL) 18 Creatinine (0.6 - 1.3 mg/dL) 0.8 Glomerular Filtr Rate (70 - 80) 69.0 L Glucose (70 - 110 mg/dL) 106 POC Glucose (70 - 110 MG/DL) 89 109 82 Calcium (8.0 - 10.5 mg/dL) 8.6 Phosphorus (2.5 - 4.9 MG/DL) 2.5 Magnesium (1.80 - 2.40 mg/dL) 1.63 L Total Bilirubin (0.0 - 1.0 mg/dL) 0.40 AST (15 - 37 IUnit/L) 23 ALT (30 - 65 IUnit/L) 10 L Total Alk Phosphatase (20 - 125 IUnit/L) 100 Troponin I High Sens (0 - 34 ng/L) 74 H Total Protein (6.4 - 8.2 g/dL) 6.0 L Albumin (3.4 - 5.0 g/dL) 2.70 L 03/24 1147 Chemistry POC Glucose (70 - 110 MG/DL) 98 Laboratory Tests 03/25 0412 Hematology WBC (4.5 - 11.0 x10 3/uL) 15.1 H RBC (3.54 - 5.02 x10 6/uL) 3.48 L Hgb (11.0 - 15.0 g/dL) 9.9 L Hct (33.0 - 45.0 %) 30.8 L MCV (81.0 - 99.0 fL) 88.5 MCH (27.0 - 33.0 pg) 28.4 MCHC (33.0 - 37.0 g/dL) 32.1 L RDW (11.5 - 14.5 %) 15.8 H Plt Count (150 - 400 x10 3/uL) 125 L MPV (7.0 - 9.0 fL) 12.7 H Neut % (Auto) (56.0 - 77.0 %) 77.6 H Lymph % (Auto) (14.0 - 32.0 %) 14.0 Phelps % (Auto) (4.8 - 9.0 %) 6.0 Eos % (Auto) (0.3 - 3.7 %) 1.1 Baso % (Auto) (0.0 - 2.0 %) 0.2 Neut # (Auto) (2.0 - 7.6 x10 3/uL) 11.70 H Lymph # (Auto) (1.0 - 3.8 x10 3/uL) 2.11 Phelps # (Auto) (0.1 - 0.8 x10 3/uL) 0.90 H Eos # (Auto) (0.0 - 0.2 x10 3/uL) 0.17 Baso # (Auto) (0.0 - 0.2 x10 3/uL) 0.03 Abs Immat Gran (auto) (0.00 - 0.03 x10 3/uL) 0. 16 H Add Manual Diff NO Immature Gran % (0.0 - 2.0 %) 1.1 Nucleated RBC % (0 - 0 %) 0.0 Nucleated RBCs # (Man) (0.0 - 0.1 x10 3/uL) 0.0 0 Diagnosis, Assessment Plan Problem List/A P: 1. MRSA bacteremia 2. Sepsis 3. Infective endocarditis of pulmonary valve Blood cultures are positive again with gram-pos itive cocci in clusters with susceptibilities pending we will continue the va ncomycin and add ceftaroline Primary source is uncertain as physical examination is unremarkable for nidus of infection Would continue vancomycin and add ceftaroline f or double coverage Repeat blood cultures until negative Contact isolation Patient has a right groin c atheter inserted while she is bacteremic which will have to be removed soon Ultimately she will need a PICC line and 4 week s of IV antibiotics as an outpatient 4. CKD (chronic kidney disease) 5. DM2 (diabetes mellitus, type 2) Electronically Signed by Liban Lombardo MD on at 1112 RPT #:[id number] END OF REPORT 2022-03-25 03:36:00-00:00 [id number] [place] [address] PATIENT NAME: MICHAELA MATIAS ADMIT DATE: 03/23/22 ACCOUNT NO: [id number] ROOM NO: [facility] AGE: 81 REPORT TYPE: eELECTROCARDIOGRAM REPORT SEX: F ADMITTING PHYSICIAN:Radha Wisdom MD ATTENDING PHYSICIAN:Radha Wisdom MD Order: [id number] Test Reason : EKG Test Date/Time Stamp: MonMar 25 2022 03:36:09 Blood Pressure : / mmHG Vent. Rate : 079 BPM Atrial Rate : 079 BPM P-R Int : 130 ms QRS Dur : 090 ms QT Int : 384 ms P-R-T Axes : 062 -05 050 degree s QTc Int : 440 ms Poor data quality, interpretation may be adv ersely affected Normal sinus rhythm Low voltage QRS Borderline ECG When compared with ECG of 24-MAR-2022 01:27, Significant changes have occurred Confirmed by SHERRY GONSALES MD ([id number]) on 12:42:32 PM Referred By: Radha Wisdom Confirmed by:SHERRY GONSALES MD at 1242 PATIENT NAME: MICHAELA MATIAS 1 2022-03-24 18:24:00-00:00 [id number] [place] [address] PATIENT NAME: MICHAELA MATIAS ADMIT DATE: 03/23/22 ACCOUNT NO: [id number] ROOM NO: [facility] AGE: 81 REPORT TYPE: TRANSESOPHAGEAL ECHO REPORT. SEX: F ADMITTING PHYSICIAN:Trevon Kimball MD ATTENDING PHYSICIAN:Trevon Kimball MD PROCEDURE: Transesophageal Echo STUDY DATE: 03/24/2022 DATE OF PROCEDURE: 03/24/2022 PROCEDURE PERFORMED: Transesophageal echocardiog mei. INDICATION: To rule out endocarditis. FINDINGS: 1. No global hypokinesis, ejection fraction mild ly reduced around 40%. 2. Normal-appearing tricuspi d valve with no vegetation and flpw-pi-ymdxjnal TR. 3. Mitral annulus calcification with mild-to-mod erate MR noted. 4. Sclerosis in aortic valve with moderate AI. 5. Left atrium and left atrial appendage showed no obvious thrombus. 6. Descending aorta normal. 7. The pulmonic valve showed vegetation on the p ulmonic valve about 1.1 cm. CONCLUSION: Abnormal transes ophageal echocardiogram, which showed vegetation on the pulmonic valve. The rest of the findings as outlined above. Dictated By: Sherry Gonsales MD WT: IGLESIA:GPAN/PJ/MANDY Conf#: [id number]/DID#: [id number] Authenticated by Sherry Gonsales MD On 03/28/20 11:40:08 AM at 1140 Sherry Gonsales MD M.D. 03/24/22 182 PATIENT NAME: MICHAELA MATIAS 1 2022-03-24 18:04:00-00:00 [facility] ([facility]) Cardiology Progress Note REPORT#:[id number] REPORT STATUS: Signed DATE:03/24/22 TIME: 1803 PATIENT: MICHAELA MATIAS UNIT #: [id number] ROOM/BED: [place] [address] : 41 AGE: 81 SEX: F ATTEND: Josiane Wisdom MD ADM AUTHOR: Sherry Gonsales MD * ALL edits or amendments must be made on the [employer] document * Objective General VS/I O: 24 hour I O ending at 0700: 03/24 0700 03/23 1900 Intake Total 967.50 Output Total 300 Balance 667.50 Intake, IV 967.50 Number Voids 2 Output, Urine 300 Patient 44.3 kg Weight Weight Bed scale Measurement Method Vital Signs: Date Time Temp Pulse Resp B/P B/P Pulse O2 O2 F low FiO2 Mean Ox Delivery Rate 03/24 1500 66 18 139/63 90 95 09/08 1445 68 22 136/65 93 96 09/08 1430 67 24 101/50 72 94 /08 1415 64 16 96/52 71 95 09/08 1400 62 20 109/52 75 96 09/08 1345 73 18 97/50 70 93 09/08 1330 73 19 112/54 78 94 09/08 1315 65 24 124/60 86 96 09/08 1300 63 33 115/58 84 96 09/08 1245 65 28 120/58 84 98 09/08 1230 67 19 125/60 86 97 09/08 1215 70 30 124/61 88 100 09/08 1201 68 37 125/58 83 97 09/08 1200 36.6 09/08 1145 65 29 109/55 79 95 09/08 1130 64 36 118/58 84 96 09/08 1115 63 19 91/47 66 94 09/08 1100 66 16 109/54 78 95 09/08 1045 66 21 115/57 82 98 09/08 1030 62 39 89/51 69 93 09/08 1022 93 Room air 09/08 1015 63 17 96/52 71 93 09/08 1001 67 35 108/52 75 92 09/08 0945 76 22 135/60 86 98 09/08 0930 69 21 118/57 82 95 09/08 0915 64 20 114/54 78 96 09/08 0900 66 19 109/55 79 99 09/08 0845 66 23 109/56 80 98 09/08 0830 64 28 102/51 73 97 09/08 0815 65 20 106/53 76 97 09/08 0800 36.3 09/08 0800 Nasal 2 cannula 09/08 0800 71 20 108/53 76 96 09/08 0759 96 Nasal 1 cannula 09/08 0745 74 25 113/55 78 99 09/08 0730 68 18 116/58 84 100 09/08 0715 68 19 114/58 84 99 09/08 0700 71 21 124/57 82 97 09/08 0445 74 21 113/55 79 97 09/08 0430 75 23 117/56 80 96 09/08 0400 36.8 73 113/56 75 96 Nasal 2 cannula 09/08 0400 73 113/56 81 96 09/08 0345 80 15 115/59 84 95 09/08 0330 77 20 104/53 77 95 09/08 0315 82 23 117/54 78 95 09/08 0300 81 21 105/51 74 95 09/08 0245 82 26 109/52 75 94 09/08 0230 88 22 104/52 75 93 09/08 0215 88 24 106/55 78 93 09/08 0200 93 46 110/56 80 91 09/08 0145 95 48 109/53 76 91 09/08 0130 102 23 110/54 78 98 09/08 0115 107 27 123/57 82 95 09/08 0100 101 16 152/68 98 100 09/08 0053 108 24 172/79 113 100 09/08 0048 114 26 181/81 117 98 09/08 0042 126 27 200/127 142 97 09/08 0030 192 28 235/119 170 09/08 0024 188 29 204/99 132 90 09/08 0019 178 28 205/81 116 91 09/08 0015 162 29 160/97 124 94 09/08 0000 37.3 81 23 150/67 94 93 Nasal 2 cannula /08 0000 81 23 150/67 97 93 09/ 2345 78 24 148/67 96 100 09/07 2330 79 24 145/63 94 100 09/07 2315 70 22 144/67 94 99 09/07 2300 67 22 129/55 83 100 09/07 2245 67 19 125/60 86 99 /07 2230 71 21 134/63 91 98 /07 2228 70 22 153/63 91 98 09/07 2200 73 22 132/60 90 100 09/07 2145 75 20 150/63 90 99 /07 2130 74 21 126/60 87 98 /2114 Nasal 2 cannula 03/23 2115 36.6 14 126/30 62 98 Nasal 2 cannula PATIENT WEIGHT: Weight (lb): 97 Weight (oz): 10.64 Weight (kg): 44.300 Medications: Active Meds + DC'd Last 24 Hrs Enoxaparin Sodium (lovENOX) 30 MG Q24H SUBQ Vancomycin HCl (VANCOMYCIN HCL) 750 MG Q24H IV ( CKD) Sodium Chloride (SODIUM CHLORIDE 0.9%) 250 ML Lactated Ringer's (LACTATED RINGERS) 1,000 ML .Q 10H IV Sodium Chloride (SODIUM CHLORIDE 0.9%) 500 ML GILLIAN MARTY ONCE ONE IV (DC) Mupirocin (BACTROBAN 2% 22 GM OINTMENT) 1 APPLIC BID NASAL Potassium Chloride (KCL 10MEQ/SWFI 50ML) 50 ML Q 1HR IV (DC) Calcium Gluconate/Sodium Chloride (Calcium Gluco alexia 1 GM/NS 50 mL) 50 ML ASDIR PRN IV Calcium Gluconate/Sodium Chloride (Calcium Gluco alexia 2 GM/NS 100 mL) 100 ML ASDIR PRN IV Lactated Ringer's (LACTATED RINGERS) 1,000 ML GILLIAN MARTY IV Magnesium Sulfate (MAGNESIUM SULFATE 2GM/SWFI 50 ML) 50 ML ASDIR PRN IV ( CKD) Potassium Chloride (KCL 20MEQ/SWFI 100ML) 100 ML ASDIR PRN IV Potassium Chloride (POTASSIUM CHLORIDE 20MEQ TAB .ER) 20 MEQ ASDIR PRN PO Potassium Chloride (POTASSIUM CHLORIDE 20MEQ TAB .ER) 40 MEQ ASDIR PRN PO Potassium Phosphate (POTASSIUM PHOSPHATE) 15 MM ASDIR PRN IV (CKD) Sodium Chloride (SODIUM CHLORIDE 0.9%) 100 ML Potassium Phosphate (POTASSIUM PHOSPHATE) 20 MM ASDIR PRN IV (CKD) Sodium Chloride (SODIUM CHLORIDE 0.9%) 250 ML Potassium Phosphate (POTASSIUM PHOSPHATE) 30 MM ASDIR PRN IV (CKD) Sodium Chloride (SODIUM CHLORIDE 0.9%) 250 ML Sodium Phosphate (SODIUM PHOSPHATE) 15 MMOL ASDI R PRN IV (CKD) Sodium Chloride (SODIUM CHLORIDE 0.9%) 100 ML Sodium Phosphate (SODIUM PHOSPHATE) 20 MMOL ASDI R PRN IV (CKD) Sodium Chloride (SODIUM CHLORIDE 0.9%) 250 ML Sodium Phosphate (SODIUM PHOSPHATE) 30 MMOL ASDI R PRN IV (CKD) Sodium Chloride (SODIUM CHLORIDE 0.9%) 250 ML Acetaminophen (TYLENOL) 650 MG ONCE ONE RECTAL ( DC) Cefepime HCl (MAXIPIME) 1 GM Q8H IV (DC) Sodium Chloride (SODIUM CHLORIDE 0.9% 100 ML) 1 00 ML Enoxaparin Sodium (lovENOX) 40 MG Q24H SUBQ (DC) Vancomycin HCl (VANCOMYCIN HCL) 1,000 MG ONCE ON E IV (DC) Sodium Chloride (SODIUM CHLORIDE 0.9%) 250 ML Benzocaine/Butamben/Tetracaine HCl (CETACAINE) 1 APPLIC ASDIR PRN MM ( CKD) Fentanyl Citrate (SUBLIMAZE) 100 MCG ASDIR PRN I V Flumazenil (ROMAZICON) 0.2 MG ASDIR PRN IV Midazolam HCl (VERSED) 2 MG ASDIR PRN IV Naloxone HCl (NARCAN) 0.4 MG ASDIR PRN IV (CKD) Acetaminophen (TYLENOL) 650 MG Q4H PRN PRN PO Ondansetron HCl (ZOFRAN) 4 MG Q4H PRN PRN IV Dextrose/Water (DEXTROSE 50% W SYRINGE) 25 ML DIR PRN IV (CKD) Dextrose/Water (DEXTROSE 50% W SYRINGE) 50 ML DIR PRN IV (CKD) Glucagon (GLUCAGON) 1 MG ASDIR PRN IM Insulin Human Lispro (HUMALOG) 0 AC HS SUBQ Miscellaneous Information (VANCOMYCIN PHARMACY T O DOSE) 1 EACH ASDIR IV (CKD) Physical Exam General appearance: awake Neck: full range of motion, non-tender, normal thyroid, supple/no meningismus, no bruit/NL carotids, no JVD, no lymphadenopathy , no masses or swelling Cardiovascular: CV assessment: regular rate and rhythm Respiratory: clear to auscultation, no distress Abdomen: non-tender, normal bowel sounds , no distention, no guarding, no mass/ organomegaly, no pulsatile mass, no rebound Upper extremity: UE assessment: normal capillary refill, no ammy a Lower extremity: LE assessment: normal capillary refill, no ammy a Results Findings/Data: Laboratory Tests 03/24 102 Blood Gas Puncture Site R Radial O2 Saturation (90 - 100 %) 92.0 ABG pH (7.35 - 7.45) 7.371 ABG pCO2 (35.0 - 45 mmHg) 33.9 L ABG pO2 (80 - 100.0 mmHg) 63.4 L ABG PO2/FiO2 Ratio (mm/Hg) 226.42 ABG HCO3 (22.0 - 26.0 MMOL/L) 19.7 L ABG Total CO2 20.8 ABG Base Excess (-4.0 - 4.0 MMOL/L) -5.6 L ABG Hematocrit (33.0 - 45.0 %) 32 L ABG Hemoglobin (11.0 - 15.0 G/DL) 11.0 Aimee Test Positive Sodium (134 - 147 MEQ/L) 147 Potassium (3.4 - 5.0 MEQ/L) 3.4 Chloride (100 - 108 MEQ/L) 115 H Ionized Calcium (1.12 - 1.32 MMOL/L) 1.31 Lactic Acid (0.9 - 1.7 mmol/l) 2.6 H Temperature (F) 97.9 O2 Delivery Device Cannula FiO2 (%) 28 Laboratory Tests 03/24 03/24 03/24 03/24 03/24 1708 1147 0822 0430 0430 Chemistry Sodium (134 - 147 mEq/L) 143 Potassium (3.4 - 5.0 mEq/L) 3.9 Chloride (100 - 108 mEq/L) 114 H Carbon Dioxide (21 - 33 mEq/l) 22 Anion Gap (0 - 20) 11 BUN (7 - 18 mg/dL) 21 H Creatinine (0.6 - 1.3 mg/dL) 0.8 Glomerular Filtr Rate (70 - 80) 69.0 L Glucose (70 - 110 mg/dL) 100 POC Glucose (70 - 110 MG/DL) 82 98 89 Hemoglobin A1c (4.8 - 6.0 %A1C) 6.1 H Calcium (8.0 - 10.5 mg/dL) 8.7 Total Bilirubin (0.0 - 1.0 mg/dL) 0.40 AST (15 - 37 IUnit/L) 38 H ALT (30 - 65 IUnit/L) 16 L Total Alk Phosphatase (20 - 125 IUnit/L) 88 Total Protein (6.4 - 8.2 g/dL) 5.5 L Albumin (3.4 - 5.0 g/dL) 2.70 L 03/24 03/24 03/23 03/23 03/23 0102 0026 2217 2215 2215 Chemistry POC Creatinine (0.6 - 1.0 mg/dL) 0.9 POC Glucose (70 - 110 MG/DL) 90 POC Glucose (mg/dL) (70 - 110 MG/DL) 115 H Lactic Acid (0.4 - 1.9 mmol/L) 1.4 C-Reactive Protein (<10.0 mg/L) 137.0 H LDL Cholesterol Measurd (0 - 100 mg/dL) 26.4 03/23 03/23 03/23 2215 2215 2124 Chemistry Sodium (134 - 147 mEq/L) 143 Potassium (3.4 - 5.0 mEq/L) 3.9 Chloride (100 - 108 mEq/L) 113 H Carbon Dioxide (21 - 33 mEq/l) 24 Anion Gap (0 - 20) 10 BUN (7 - 18 mg/dL) 22 H Creatinine (0.6 - 1.3 mg/dL) 0.9 Glomerular Filtr Rate (70 - 80) 60.2 L Glucose (70 - 110 mg/dL) 114 H POC Glucose (70 - 110 MG/DL) 114 H Calcium (8.0 - 10.5 mg/dL) 9.1 Phosphorus (2.5 - 4.9 MG/DL) 3.0 Magnesium (1.80 - 2.40 mg/dL) 1.80 Total Bilirubin (0.0 - 1.0 mg/dL) 0.40 AST (15 - 37 IUnit/L) 51 H ALT (30 - 65 IUnit/L) 18 L Total Alk Phosphatase (20 - 125 IUnit/L) 95 Troponin I High Sens (0 - 34 ng/L) 112 H B-Natriuretic Peptide (0 - 100 PG/ML) 944.0 H Total Protein (6.4 - 8.2 g/dL) 6.3 L Albumin (3.4 - 5.0 g/dL) 3.20 L Laboratory Tests 03/23 2215 Coagulation INR (0.8 - 1.2) 1.2 PT Patient/Control Mix (9.3 - 12.9 SECONDS) 13. 1 H Laboratory Tests 03/24 03/23 0430 2215 Hematology WBC (4.5 - 11.0 x10 3/uL) 20.6 H 18.8 H RBC (3.54 - 5.02 x10 6/uL) 3.16 L 3.49 L Hgb (11.0 - 15.0 g/dL) 8.9 L 9.8 L Hct (33.0 - 45.0 %) 27.8 L 31.0 L MCV (81.0 - 99.0 fL) 88.0 88.8 MCH (27.0 - 33.0 pg) 28.2 28.1 MCHC (33.0 - 37.0 g/dL) 32.0 L 31.6 L RDW (11.5 - 14.5 %) 15.4 H 15.5 H Plt Count (150 - 400 x10 3/uL) 86 L 88 L MPV (7.0 - 9.0 fL) 13.6 H 12.9 H Neut % (Auto) (56.0 - 77.0 %) 84.3 H 83.6 H Lymph % (Auto) (14.0 - 32.0 %) 7.6 L 8.9 L Phelps % (Auto) (4.8 - 9.0 %) 7.0 6.5 Eos % (Auto) (0.3 - 3.7 %) 0.1 L 0.1 L Baso % (Auto) (0.0 - 2.0 %) 0.2 0.1 Neut # (Auto) (2.0 - 7.6 x10 3/uL) 17.37 H 15.7 1 H Lymph # (Auto) (1.0 - 3.8 x10 3/uL) 1.56 1.68 Phelps # (Auto) (0.1 - 0.8 x10 3/uL) 1.44 H 1.22 H Eos # (Auto) (0.0 - 0.2 x10 3/uL) 0.03 0.01 Baso # (Auto) (0.0 - 0.2 x10 3/uL) 0.04 0.02 Abs Immat Gran (auto) (0.00 - 0.03 x10 3/uL) 0. 17 H 0.15 H Add Manual Diff NO NO Immature Gran % (0.0 - 2.0 %) 0.8 0.8 Nucleated RBC % (0 - 0 %) 0.0 0.0 Nucleated RBCs # (Man) (0.0 - 0.1 x10 3/uL) 0.0 0 0.00 Platelet Estimate (ADEQUATE THOUSAND) 96-120 Immature Plt Fraction (0.9 - 11.2 %) 17.0 H Plt Morphology Comment LARGE PLATELETS ESR Westergren (0 - 20 mm/hr) 24 H Microbiology Date/Time Procedure - Status Source Growth 03/23 1950 MRSA DNA Surveillance Screen - COMP NASAL Laboratory Tests 03/23 03/23 2215 2215 Chemistry Magnesium (1.80 - 2.40 mg/dL) 1.80 B-Natriuretic Peptide (0 - 100 PG/ML) 944.0 H Radiology data: Recent Impressions: RADIOLOGY - XR CHEST 1 V 03/23 2149 Report Impression - Status: SIGNED Entered: 03/23/20222216 IMPRESSION: No acute cardiopulmonary findings. Impression By: Mejia Rose RADIOLOGY - XR CHEST 1 V 03/24 0045 Report Impression - Status: SIGNED Entered: 03/24/2022 0129 IMPRESSION: 1. Stable mild interstitial pulmonary edema. No focal consolidation. 2. Stable cardiomediastinal silhouette. Impression By: Mejia Alvares Diagnosis, Assessment Plan Problem List/A P: 1. MRSA bacteremia 2. Sepsis 3. Lactic acidosis 4. Infective endocarditis of pulmonary valve Free Text DxA P Notes Free Text DxA P Notes: 03/24 awake, stable BP , IGLESIA showed veg on pulm valve, ID was informed. IV abx. Electronically Signed by Sherry Gonsales MD on 0 03/24/22 at 1805 RPT #:[id number] END OF REPORT 2022-03-24 16:43:00-00:00 [id number] [place] [address] PATIENT NAME: MICHAELA MATIAS ADMIT DATE: 03/23/22 ACCOUNT NO: [id number] ROOM NO: [id number] AGE: 81 REPORT TYPE: eTRANSESOPHAGEAL ECHO REPORT SEX: F ADMITTING PHYSICIAN:Radha Wisdom MD ATTENDING PHYSICIAN:Radha Wisdom MD *[place] [id number] Transesophageal Echocardiogram Patient: Michaela Matias Study Date: 03/24/2022 BP: 108 / 52 Location: [facility] URN: [id number] : 1940 Age: 81 Height: 60.6 in / 154 cm Gender: F Weight: 97. 5 lb / 44.3 kg BMI/BSA: 18.7 kg/m 2 / 1.37 m 2 *Ordering Physician: * Sherry Gonsales MD *Interpreting Physician: Sherry Gorman MD *Business Insurance Agent: Ambika Farr [facility] Indications: IGLESIA PRE PROCEDURE. Study data: Consent: The risks, benefits, and al ternatives to the procedure were explained to the patient and info rmed consent was obtained. Procedure: Initial setup: The patient was brought to the laboratory in the fasting state.Intravenous acce ss was obtained. Surface ECG leads and pulse oximetric signals were monit ored. Sedation. Moderate sedation was administered by cardiology staff. T ransesophageal echocardiography was performed. Topical anesthes ia was obtained using benzocaine spray. A transesophageal probe (SN: [id number]) was inserted by the attending carding machine operator without difficulty. I mages were obtained using a [employer] cardiac ultrasound machine. Image nevin lity was adequate. The transesophageal probe was removed. Location: ICU Patient status: Inpatient. Patient room number: M310. Study stat us: Routine. Study completion: The patient tolerated the procedure well. There were no complications. PATIENT NAME: MICHAELA MATIAS 1 Findings Left ventricle: Systolic function is mildly redu ivon. Right ventricle: The cavity size is normal. Left atrium: The appendage is of normal size. Atrial septum: No defect or patent foramen ovale is identified. Aorta: The aorta is mildly calcified. Aortic valve: The leaflets are mildly calcified. There is moderate regurgitation. Mitral valve: The valve is structurally normal. There is mild regurgitation. Tricuspid valve: The valve is structurally yoan l. There is mild regurgitation. Pulmonic valve: There is a vegetation. Conclusions Summary: 1. Left ventricle: Systolic function is mildly r educed. 2. Atrial septum: No defect or patent foramen ov iona is identified. 3. Aortic valve: There is moderate regurgitation . 4. Pulmonic valve: There is a vegetation. Prepared and electronically signed by Sherry Gonsales MD 03/24/2022 16:43 at 1643 PATIENT NAME: MICHAELA MATIAS 42 2022-03-24 16:39:00-00:00 [facility] ([facility] Hospitalist Progress Note REPORT#:[id number] REPORT STATUS: Signed DATE:03/24/22 TIME: 1639 PATIENT: MICHAELA MATISA UNIT #: [id number] ROOM/BED: [place] [address] : 41 AGE: 81 SEX: F ATTEND: Josiane Wisdom MD ADM AUTHOR: Radha Wisodm MD * ALL edits or amendments must be made on the [employer]/computer document * Subjective Chief complaint: sepsis HPI: 81 y/o female with a h/o of vascular dementia, CAD, diet controlled DM, HTN, low ef (30%) and Aortic regurg, stage III CKD whose h/o began about a month ago where the patient was admitt ed for CP at [place] (where the patient resides ). Pt at that time had blood cx which were positive for MRSA and the patient was treated for a week in the hospital and 2 weeks a s an outpt with IV abx. The source of the bacteremia was never found (transt horacic echo was negative). After the antibiotics were stopped 2 weeks ago, patient has had a gradual decline with recurrent fever s (103) and having n/v and poor apetite and failure to thrive. Patient was broug ht back to [facility] where repeat blood cx were still positive with coag positive staph. Pt was hypotensive and required pressors and albumin and fluid resussitation. Cassandra bocanegra was then transferred to [place] ICU for further evaluation. H/O above is from her grandd radha Rosemary, who is a cath nurse at [place]. Pt is a non historian because of her dementia. Objective Physical Exam General appearance: chronically ill appearing, a wake Head/Eyes: atraumatic, normocephalic ENT: normal ear left, normal ear right, normal n ose Neck: full range of motion, no JVD Cardiovascular: normal heart sounds, regular rat e rhythm Respiratory: aerating well, clear to auscultatio n, symmetric expansion, no distress Abdomen: non-tender, normal bowel sounds, soft, no distention Extremities: no clubbing, no cyanosis, no edema Musculoskeletal: Right femoral line tripple lume n. 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, no sensory deficit s Results Findings/Data: Laboratory Tests 03/24 102 Blood Gas Puncture Site R Radial O2 Saturation (90 - 100 %) 92.0 ABG pH (7.35 - 7.45) 7.371 ABG pCO2 (35.0 - 45 mmHg) 33.9 L ABG pO2 (80 - 100.0 mmHg) 63.4 L ABG PO2/FiO2 Ratio (mm/Hg) 226.42 ABG HCO3 (22.0 - 26.0 MMOL/L) 19.7 L ABG Total CO2 20.8 ABG Base Excess (-4.0 - 4.0 MMOL/L) -5.6 L ABG Hematocrit (33.0 - 45.0 %) 32 L ABG Hemoglobin (11.0 - 15.0 G/DL) 11.0 Aimee Test Positive Sodium (134 - 147 MEQ/L) 147 Potassium (3.4 - 5.0 MEQ/L) 3.4 Chloride (100 - 108 MEQ/L) 115 H Ionized Calcium (1.12 - 1.32 MMOL/L) 1.31 Lactic Acid (0.9 - 1.7 mmol/l) 2.6 H Temperature (F) 97.9 O2 Delivery Device Cannula FiO2 (%) 28 Laboratory Tests 03/24 03/24 03/24 03/24 03/24 1147 0822 0430 0430 0102 Chemistry Sodium (134 - 147 mEq/L) 143 Potassium (3.4 - 5.0 mEq/L) 3.9 Chloride (100 - 108 mEq/L) 114 H Carbon Dioxide (21 - 33 mEq/l) 22 Anion Gap (0 - 20) 11 BUN (7 - 18 mg/dL) 21 H Creatinine (0.6 - 1.3 mg/dL) 0.8 POC Creatinine (0.6 - 1.0 mg/dL) 0.9 Glomerular Filtr Rate (70 - 80) 69.0 L Glucose (70 - 110 mg/dL) 100 POC Glucose (70 - 110 MG/DL) 98 89 POC Glucose (mg/dL) (70 - 110 MG/DL) 115 H Hemoglobin A1c (4.8 - 6.0 %A1C) 6.1 H Calcium (8.0 - 10.5 mg/dL) 8.7 Total Bilirubin (0.0 - 1.0 mg/dL) 0.40 AST (15 - 37 IUnit/L) 38 H ALT (30 - 65 IUnit/L) 16 L Total Alk Phosphatase (20 - 125 88 IUnit/L) Total Protein (6.4 - 8.2 g/dL) 5.5 L Albumin (3.4 - 5.0 g/dL) 2.70 L 03/24 03/23 03/23 03/23 03/23 0026 2217 2215 2215 2215 Chemistry POC Glucose (70 - 110 MG/DL) 90 Lactic Acid (0.4 - 1.9 mmol/L) 1.4 C-Reactive Protein (<10.0 mg/L) 137.0 H B-Natriuretic Peptide (0 - 100 PG/ML) 944.0 H LDL Cholesterol Measurd (0 - 100 26.4 mg/dL) 03/23 03/23 2215 2124 Chemistry Sodium (134 - 147 mEq/L) 143 Potassium (3.4 - 5.0 mEq/L) 3.9 Chloride (100 - 108 mEq/L) 113 H Carbon Dioxide (21 - 33 mEq/l) 24 Anion Gap (0 - 20) 10 BUN (7 - 18 mg/dL) 22 H Creatinine (0.6 - 1.3 mg/dL) 0.9 Glomerular Filtr Rate (70 - 80) 60.2 L Glucose (70 - 110 mg/dL) 114 H POC Glucose (70 - 110 MG/DL) 114 H Calcium (8.0 - 10.5 mg/dL) 9.1 Phosphorus (2.5 - 4.9 MG/DL) 3.0 Magnesium (1.80 - 2.40 mg/dL) 1.80 Total Bilirubin (0.0 - 1.0 mg/dL) 0.40 AST (15 - 37 IUnit/L) 51 H ALT (30 - 65 IUnit/L) 18 L Total Alk Phosphatase (20 - 125 IUnit/L) 95 Troponin I High Sens (0 - 34 ng/L) 112 H Total Protein (6.4 - 8.2 g/dL) 6.3 L Albumin (3.4 - 5.0 g/dL) 3.20 L Laboratory Tests 03/23 2215 Coagulation INR (0.8 - 1.2) 1.2 PT Patient/Control Mix (9.3 - 12.9 SECONDS) 13. 1 H Laboratory Tests 03/24 03/23 0430 2215 Hematology WBC (4.5 - 11.0 x10 3/uL) 20.6 H 18.8 H RBC (3.54 - 5.02 x10 6/uL) 3.16 L 3.49 L Hgb (11.0 - 15.0 g/dL) 8.9 L 9.8 L Hct (33.0 - 45.0 %) 27.8 L 31.0 L MCV (81.0 - 99.0 fL) 88.0 88.8 MCH (27.0 - 33.0 pg) 28.2 28.1 MCHC (33.0 - 37.0 g/dL) 32.0 L 31.6 L RDW (11.5 - 14.5 %) 15.4 H 15.5 H Plt Count (150 - 400 x10 3/uL) 86 L 88 L MPV (7.0 - 9.0 fL) 13.6 H 12.9 H Neut % (Auto) (56.0 - 77.0 %) 84.3 H 83.6 H Lymph % (Auto) (14.0 - 32.0 %) 7.6 L 8.9 L Phelps % (Auto) (4.8 - 9.0 %) 7.0 6.5 Eos % (Auto) (0.3 - 3.7 %) 0.1 L 0.1 L Baso % (Auto) (0.0 - 2.0 %) 0.2 0.1 Neut # (Auto) (2.0 - 7.6 x10 3/uL) 17.37 H 15.7 1 H Lymph # (Auto) (1.0 - 3.8 x10 3/uL) 1.56 1.68 Phelps # (Auto) (0.1 - 0.8 x10 3/uL) 1.44 H 1.22 H Eos # (Auto) (0.0 - 0.2 x10 3/uL) 0.03 0.01 Baso # (Auto) (0.0 - 0.2 x10 3/uL) 0.04 0.02 Abs Immat Gran (auto) (0.00 - 0.03 x10 3/uL) 0. 17 H 0.15 H Add Manual Diff NO NO Immature Gran % (0.0 - 2.0 %) 0.8 0.8 Nucleated RBC % (0 - 0 %) 0.0 0.0 Nucleated RBCs # (Man) (0.0 - 0.1 x10 3/uL) 0.0 0 0.00 Platelet Estimate (ADEQUATE THOUSAND) 96-120 Immature Plt Fraction (0.9 - 11.2 %) 17.0 H Plt Morphology Comment LARGE PLATELETS ESR Westergren (0 - 20 mm/hr) 24 H Microbiology Date/Time Procedure - Status Source Growth 03/23 1950 MRSA DNA Surveillance Screen - COMP NASAL Radiology data: Recent Impressions: RADIOLOGY - XR CHEST 1 V 03/23 2149 Report Impression - Status: SIGNED Entered: 03/23/2022 2217 IMPRESSION: No acute cardiopulmonary findings. Impression By: Mejia Rose RADIOLOGY - XR CHEST 1 V 03/24 0045 Report Impression - Status: SIGNED Entered: 03/24/2022 0129 IMPRESSION: 1. Stable mild interstitial pulmonary edema. No focal consolidation. 2. Stable cardiomediastinal silhouette. Impression By: [email or web address] Mejia Waite Diagnosis, Assessment Plan Free Text DxA P Notes Free text DxA P notes: 81 y/o with dementia/HTN/CAD/CHF/aortic regurge/CKD -stage III/DM who presents with persistent bacteremia (presumed MRSA) causi ng sepsis Infective endocarditis Recurrent gram positive bacteremia -at [facility] son she was on IV vancomycin IGLESIA today showed vegetation in the pulmonary real ve Follow blood culture She will need PICC line after blood culture nega tive Septic shock - Resolved patient had septic shock at [place] ER req uiring pressors and pt was resussitated with IVF and albumin. Continue to monitor pressure CKD - follow electrolytes, UOP HTN - hold BP meds for now. DVT prophylaxis Lovenox subcu CODE STATUS full Discussed with the patient a nd her at the bedside and all questions were answered. Quality: Gen Med Crit Care VTE Prophylaxis VTE prophylaxis initiated: yes Current Medications Current medication review: I attest that the foregoing medication list in t he medical record is true, accurate, and complete to the best of my knowled ge. Advanced Care Plan 65 or Older Discussed with: surrogate decis. maker Discussion included: code status Electronically Signed by Radha Wisdom MD on at 1753 RPT #:[id number] END OF REPORT 2022-03-24 10:26:00-00:00 [facility] ([facility]) Infect Disease Consult Note REPORT#:[id number] REPORT STATUS: Signed DATE:03/24/22 TIME: 1026 PATIENT: MICHAELA MATIAS UNIT #: [id number] ROOM/BED: [place] [address] : 41 AGE: 81 SEX: F ATTEND: Josiane Wisdom MD ADM AUTHOR: Liban Lombardo MD * ALL edits or amendments must be made on the el [employer]/computer document * History of Present Illness Requesting Clinician: Dr Kimball Reason for consult: mrsa sepsis Chief complaint: recurrent bacteremia HPI: History is obtained from the records the patient is a poor historian. This is an 81-year-old white female patient with history of type 2 diabetes, hypertension and chronic kid lizabeth disease who was admitted to an outside hospital in [place] with chest pain and elevated tro ponins. At that time the family decl ined cardiac cath and the patient was discharged and then readmitted because of positive blood cultur es for MRSA. The patient was sent home on IV antibiotics and received 2 weeks of therapy presumably vancomycin. She then re presented to [facility] room with sepsis and the blood cultures were again positive for the same organi sm. She was then transferred to [facility]. Today she had a IGLESIA and it shows a pulmonary real ve vegetation. Repeat blood cultures are pending Patient has been started on vancomycin and cefep hazel History - Adult longitudinal Additional medical history: CAD, low EF, vascular dementia, aortic regurg, s tage III CKD, HTN. Additional surgical history: CABG 1990 hysterectomy Additional family history: not relavent to current illness Alcohol use: Denies EtOH use Drug use: Denies recreational drugs Smoking status: Smoking status for patients 13 years old or old er: Former Smoker Allergies: Coded Allergies: meperidine (NAUSEA VOMITING 03/23/22) Review of Systems Unable to obtain due to: Unable to reliably obtain because of presumed de mentia Objective Physical Exam General appearance: alert, awake Head/Eyes: atraumatic, clear cornea ENT: moist mucosal membranes, normal dentition Neck: full range of motion, non-tender Cardiovascular: normal heart sounds, regular rat e rhythm Respiratory: clear to auscultation, aerating wel l Abdomen: non-tender, normal bowel sounds Extremities: moves all, normal capillary refill Musculoskeletal: normal inspection, no joint swe lling Results Findings/Data: Laboratory Tests 03/24 102 Blood Gas Puncture Site R Radial O2 Saturation (90 - 100 %) 92.0 ABG pH (7.35 - 7.45) 7.371 ABG pCO2 (35.0 - 45 mmHg) 33.9 L ABG pO2 (80 - 100.0 mmHg) 63.4 L ABG PO2/FiO2 Ratio (mm/Hg) 226.42 ABG HCO3 (22.0 - 26.0 MMOL/L) 19.7 L ABG Total CO2 20.8 ABG Base Excess (-4.0 - 4.0 MMOL/L) -5.6 L ABG Hematocrit (33.0 - 45.0 %) 32 L ABG Hemoglobin (11.0 - 15.0 G/DL) 11.0 Aimee Test Positive Sodium (134 - 147 MEQ/L) 147 Potassium (3.4 - 5.0 MEQ/L) 3.4 Chloride (100 - 108 MEQ/L) 115 H Ionized Calcium (1.12 - 1.32 MMOL/L) 1.31 Lactic Acid (0.9 - 1.7 mmol/l) 2.6 H Temperature (F) 97.9 O2 Delivery Device Cannula FiO2 (%) 28 Laboratory Tests 03/24 03/24 03/24 03/24 03/24 0822 0430 0430 0102 0026 Chemistry Sodium (134 - 147 mEq/L) 143 Potassium (3.4 - 5.0 mEq/L) 3.9 Chloride (100 - 108 mEq/L) 114 H Carbon Dioxide (21 - 33 mEq/l) 22 Anion Gap (0 - 20) 11 BUN (7 - 18 mg/dL) 21 H Creatinine (0.6 - 1.3 mg/dL) 0.8 POC Creatinine (0.6 - 1.0 mg/dL) 0.9 Glomerular Filtr Rate (70 - 80) 69.0 L Glucose (70 - 110 mg/dL) 100 POC Glucose (70 - 110 MG/DL) 89 90 POC Glucose (mg/dL) (70 - 110 MG/DL) 115 H Hemoglobin A1c (4.8 - 6.0 %A1C) 6.1 H Calcium (8.0 - 10.5 mg/dL) 8.7 Total Bilirubin (0.0 - 1.0 mg/dL) 0.40 AST (15 - 37 IUnit/L) 38 H ALT (30 - 65 IUnit/L) 16 L Total Alk Phosphatase (20 - 125 IUnit/L) 88 Total Protein (6.4 - 8.2 g/dL) 5.5 L Albumin (3.4 - 5.0 g/dL) 2.70 L 03/23 03/23 03/23 03/23 03/23 2217 2215 2215 2215 2215 Chemistry Sodium (134 - 147 mEq/L) 143 Potassium (3.4 - 5.0 mEq/L) 3.9 Chloride (100 - 108 mEq/L) 113 H Carbon Dioxide (21 - 33 mEq/l) 24 Anion Gap (0 - 20) 10 BUN (7 - 18 mg/dL) 22 H Creatinine (0.6 - 1.3 mg/dL) 0.9 Glomerular Filtr Rate (70 - 80) 60.2 L Glucose (70 - 110 mg/dL) 114 H Lactic Acid (0.4 - 1.9 mmol/L) 1.4 Calcium (8.0 - 10.5 mg/dL) 9.1 Phosphorus (2.5 - 4.9 MG/DL) 3.0 Magnesium (1.80 - 2.40 mg/dL) 1.80 Total Bilirubin (0.0 - 1.0 mg/dL) 0.40 AST (15 - 37 IUnit/L) 51 H ALT (30 - 65 IUnit/L) 18 L Total Alk Phosphatase (20 - 125 95 IUnit/L) Troponin I High Sens (0 - 34 ng/L) 112 H C-Reactive Protein (<10.0 mg/L) 137.0 H B-Natriuretic Peptide (0 - 100 PG/ML) 944.0 H Total Protein (6.4 - 8.2 g/dL) 6.3 L Albumin (3.4 - 5.0 g/dL) 3.20 L LDL Cholesterol Measurd (0 - 100 26.4 mg/dL) 03/23 2124 Chemistry POC Glucose (70 - 110 MG/DL) 114 H Laboratory Tests 03/235 Coagulation INR (0.8 - 1.2) 1.2 PT Patient/Control Mix (9.3 - 12.9 SECONDS) 13. 1 H Laboratory Tests 03/24 03/23 0430 2215 Hematology WBC (4.5 - 11.0 x10 3/uL) 20.6 H 18.8 H RBC (3.54 - 5.02 x10 6/uL) 3.16 L 3.49 L Hgb (11.0 - 15.0 g/dL) 8.9 L 9.8 L Hct (33.0 - 45.0 %) 27.8 L 31.0 L MCV (81.0 - 99.0 fL) 88.0 88.8 MCH (27.0 - 33.0 pg) 28.2 28.1 MCHC (33.0 - 37.0 g/dL) 32.0 L 31.6 L RDW (11.5 - 14.5 %) 15.4 H 15.5 H Plt Count (150 - 400 x10 3/uL) 86 L 88 L MPV (7.0 - 9.0 fL) 13.6 H 12.9 H Neut % (Auto) (56.0 - 77.0 %) 84.3 H 83.6 H Lymph % (Auto) (14.0 - 32.0 %) 7.6 L 8.9 L Phelps % (Auto) (4.8 - 9.0 %) 7.0 6.5 Eos % (Auto) (0.3 - 3.7 %) 0.1 L 0.1 L Baso % (Auto) (0.0 - 2.0 %) 0.2 0.1 Neut # (Auto) (2.0 - 7.6 x10 3/uL) 17.37 H 15.7 1 H Lymph # (Auto) (1.0 - 3.8 x10 3/uL) 1.56 1.68 Phelps # (Auto) (0.1 - 0.8 x10 3/uL) 1.44 H 1.22 H Eos # (Auto) (0.0 - 0.2 x10 3/uL) 0.03 0.01 Baso # (Auto) (0.0 - 0.2 x10 3/uL) 0.04 0.02 Abs Immat Gran (auto) (0.00 - 0.03 x10 3/uL) 0. 17 H 0.15 H Add Manual Diff NO NO Immature Gran % (0.0 - 2.0 %) 0.8 0.8 Nucleated RBC % (0 - 0 %) 0.0 0.0 Nucleated RBCs # (Man) (0.0 - 0.1 x10 3/uL) 0.0 0 0.00 Platelet Estimate (ADEQUATE THOUSAND) 96-120 Immature Plt Fraction (0.9 - 11.2 %) 17.0 H Plt Morphology Comment LARGE PLATELETS ESR Westergren (0 - 20 mm/hr) 24 H Diagnosis, Assessment Plan Problem List/A P: 1. MRSA bacteremia 2. Sepsis 3. Infective endocarditis of pulmonary valve A P Likely secondary to MRSA Primary source is uncertain as physical examination is unremarkable for nidus of infection Would recommend continuing the vancomycin DC the cefepime Repeat blood cultures until negative Patient has a right groin c atheter inserted while she is bacteremic which will have to be removed soon Ultimately she will need a PICC line and 4 week s of IV antibiotics as an outpatient Thank you for involving us in the care of this patient will follow along with you 4. CKD (chronic kidney disease) 5. DM2 (diabetes mellitus, type 2) Electronically Signed by Liban Lombardo MD on at 1032 RPT #:[id number] END OF REPORT 2022-03-24 02:55:00-00:00 [facility] ([facility]) Critical Care Consult Note REPORT#:[id number] REPORT STATUS: Signed DATE:03/24/22 TIME: 254 PATIENT: MICHAELA MATIAS UNIT #: [id number] ROOM/BED: [facility]10-1 : 41 AGE: 81 SEX: F ATTEND: Trevon Kimball MD ADM AUTHOR: Raul Cruz MD * ALL edits or amendments must be made on the el [employer]/computer document * History of Present Illness HPI HPI: An 81-year-old female, with past medic al history of coronary artery disease, history of CABG in the , d iabetes mellitus type 2, hypertension, dementia, stage III CKD, who was transferred fro [facility] at [place] for septic shock. Patient was recently h ospitalized at that hospital for chest pain at that time and she was offered to have cardiac catheterization which she declined. Patient was called b k as blood cultures done during that admission were positive for MRSA so she was hospitalized again and started on IV antibiotics for 1 week and t hen discharged on antibiotics at home for another 2 weeks. However, patient pres ented again to the emergency department at [facility] as he started to feel wea k again and was spiking fevers again. Patient had a femoral central venous catheter inserted and was started on Levophed there. On arrival to our ICU, patient noted to have normal blood pressure not requiring pressors. Overnight, patient started having chil ls and rigors. History - Adult longitudinal Additional medical history: CAD, low EF, vascular dementia, aortic regurg, s tage III CKD, HTN. Additional surgical history: CABG 1989 hysterectomy Additional family history: not relavent to current illness Alcohol use: Denies EtOH use Drug use: Denies recreational drugs Smoking status: Smoking status for patients 13 years old or old er: Former Smoker Allergies: Coded Allergies: meperidine (NAUSEA VOMITING 03/23/22) Review of Systems ROS All systems rev neg: except as marked (Except as mentioned in the HPI) Objective Physical Exam VS/I O: Last Documented: Result Date Time Pulse Ox 90 03/24 0024 B/P 204/99 03/24 0024 B/P Mean 132 03/24 0024 Pulse 188 03/24 0024 Resp 29 03/24 0024 O2 Delivery Nasal cannula 03/24 0000 O2 Flow Rate 2 03/24 0000 Temp 99.1 03/24 0000 24 hour I O ending at 0700: 03/24 0700 03/23 1900 Intake Total Output Total Balance Patient 44.3 kg Weight Weight Bed scale Measurement Method Patient Weight and BMI Weight (kg): 44.300 BMI: 18.7 Medications: Active Meds + DC'd Last 24 Hrs Vancomycin HCl (VANCOMYCIN HCL) 750 MG Q24H IV ( CKD) Sodium Chloride (SODIUM CHLORIDE 0.9%) 250 ML Mupirocin (BACTROBAN 2% 22 GM OINTMENT) 1 APPLIC BID NASAL Potassium Chloride (KCL 10MEQ/SWFI 50ML) 50 ML Q 1HR IV Calcium Gluconate/Sodium Chloride (Calcium Gluco alexia 1 GM/NS 50 mL) 50 ML ASDIR PRN IV Calcium Gluconate/Sodium Chloride (Calcium Gluco alexia 2 GM/NS 100 mL) 100 ML ASDIR PRN IV Lactated Ringer's (LACTATED RINGERS) 1,000 ML GILLIAN MARTY IV Magnesium Sulfate (MAGNESIUM SULFATE 2GM/SWFI 50 ML) 50 ML ASDIR PRN IV ( CKD) Potassium Chloride (KCL 20MEQ/SWFI 100ML) 100 ML ASDIR PRN IV Potassium Chloride (POTASSIUM CHLORIDE 20MEQ TAB .ER) 20 MEQ ASDIR PRN PO Potassium Chloride (POTASSIUM CHLORIDE 20MEQ TAB .ER) 40 MEQ ASDIR PRN PO Potassium Phosphate (POTASSIUM PHOSPHATE) 15 MM ASDIR PRN IV (CKD) Sodium Chloride (SODIUM CHLORIDE 0.9%) 100 ML Potassium Phosphate (POTASSIUM PHOSPHATE) 20 MM ASDIR PRN IV (CKD) Sodium Chloride (SODIUM CHLORIDE 0.9%) 250 ML Potassium Phosphate (POTASSIUM PHOSPHATE) 30 MM ASDIR PRN IV (CKD) Sodium Chloride (SODIUM CHLORIDE 0.9%) 250 ML Sodium Phosphate (SODIUM PHOSPHATE) 15 MMOL ASDI R PRN IV (CKD) Sodium Chloride (SODIUM CHLORIDE 0.9%) 100 ML Sodium Phosphate (SODIUM PHOSPHATE) 20 MMOL ASDI R PRN IV (CKD) Sodium Chloride (SODIUM CHLORIDE 0.9%) 250 ML Sodium Phosphate (SODIUM PHOSPHATE) 30 MMOL ASDI R PRN IV (CKD) Sodium Chloride (SODIUM CHLORIDE 0.9%) 250 ML Acetaminophen (TYLENOL) 650 MG ONCE ONE RECTAL ( DC) Cefepime HCl (MAXIPIME) 1 GM Q8H IV Sodium Chloride (SODIUM CHLORIDE 0.9% 100 ML) 1 00 ML Enoxaparin Sodium (lovENOX) 40 MG Q24H SUBQ (CKD ) Vancomycin HCl (VANCOMYCIN HCL) 1,000 MG ONCE ON E IV (DC) Sodium Chloride (SODIUM CHLORIDE 0.9%) 250 ML Benzocaine/Butamben/Tetracaine HCl (CETACAINE) 1 APPLIC ASDIR PRN MM ( CKD) Fentanyl Citrate (SUBLIMAZE) 100 MCG ASDIR PRN I V Flumazenil (ROMAZICON) 0.2 MG ASDIR PRN IV Midazolam HCl (VERSED) 2 MG ASDIR PRN IV (CKD) Naloxone HCl (NARCAN) 0.4 MG ASDIR PRN IV (CKD) Acetaminophen (TYLENOL) 650 MG Q4H PRN PRN PO Ondansetron HCl (ZOFRAN) 4 MG Q4H PRN PRN IV Dextrose/Water (DEXTROSE 50% W SYRINGE) 25 ML DIR PRN IV (CKD) Dextrose/Water (DEXTROSE 50% W SYRINGE) 50 ML DIR PRN IV (CKD) Glucagon (GLUCAGON) 1 MG ASDIR PRN IM Insulin Human Lispro (HUMALOG) 0 AC HS SUBQ Miscellaneous Information (VANCOMYCIN PHARMACY T O DOSE) 1 EACH ASDIR IV (CKD) Diagnosis, Assessment Plan Diagnosis, Assessment Plan Problem list/A P: 1. Sepsis 2. MRSA bacteremia 3. Normocytic anemia 4. Lactic acidosis 5. Acute systolic (congestive) heart failure Free text DxA P: Neuro: Patient has dementia. Monitor. Cardiogram Patient has history of coronary artery disease s tatus post CABG in 1989. Now, patient is hemodynamically stable. For IGLESIA tomorrow as per cardiology to evaluate f or endocarditis. Pulmonary: Patient is hypoxic. Chest x-ray is not impressiv e. Provide supplemental oxygen as needed to maintain oxygen saturation between 92 to 95%. GI: Liver enzymes were elevated on admission, monito r. Tolerating p.o. diet. Renal: Patient reported to have CKD stage III. Creatini ne normal on admission. Monitor BUN, creatinine. Monitor intake output. Monitor electrolytes and replace as needed. Endocrine: Patient has diabetes mellitus managed with diet. Monitor blood sugar. ID: Patient has MRSA bacteremia that failed 3 weeks of IV antibiotic treatment. Patient also has new onset CHF and new mitral re gurgitation suspicious for infective endocarditis. Patient for IGLESIA tomorrow morning. We will start the patient on vancomycin and cefe pime for now. Will obtain blood cultures and MRSA screen. Heme-onc: Patient has normocytic anemia, monitor and trans fuse as needed. Lovenox for DVT prophylaxis. Critical care time 45 minutes excluding any proc edure time. at 0312 RPT #:[id number] END OF REPORT 2022-03-24 01:27:00-00:00 [id number] [address] PATIENT NAME: MICHAEAL MATIAS ADMIT DATE: 03/23/22 ACCOUNT NO: [id number] ROOM NO: [facility] AGE: 81 REPORT TYPE: eELECTROCARDIOGRAM REPORT SEX: F ADMITTING PHYSICIAN:Radha Wisdom MD ATTENDING PHYSICIAN:Radha Wisdom MD Order: [id number] Test Reason : CHEST PAIN Test Date/Time Stamp: MonMar 24 2022 01:27:18 Blood Pressure : / mmHG Vent. Rate : 105 BPM Atrial Rate : 105 BPM P-R Int : 128 ms QRS Dur : 088 ms QT Int : 338 ms P-R-T Axes : 078 -06 048 degree s QTc Int : 446 ms Sinus tachycardia Nonspecific ST abnormality Abnormal ECG No previous ECGs available Confirmed by SHERRY GONSALES MD ([id number]) on 2 4:53:35 PM Referred By: Radha Wisdom Confirmed by:SHERRY GONSALES MD at 1653 PATIENT NAME: MICHAELA MATIAS 1 2022-03-24 01:13:00-00:00 [facility] ([facility]) Pharmacy Prog.Note-Vancomycin REPORT#:[id number] REPORT STATUS: Signed DATE:03/24/22 TIME: 0113 PATIENT: MICHAELA MATIAS UNIT #: [id number] ROOM[address]: [address] : 41 AGE: 81 SEX: F ATTEND: Trevon Kimball MD ADM AUTHOR: Catherine Alexander [facility] * ALL edits or amendments must be made on the el [employer]/computer document * Vancomycin Vancomycin Medication Therapy Goal: trough 12-18 mcg/mL Indication for treatment: Sepsis/Bacteremia Site of infection: unknown Day of therapy: Day 1 of 7 Weight: Actual weight (kg): 44.3 (stated by nurse) VS and I/O: Vital Signs Date Temp Pulse Resp B/P B/P Mean Pulse Ox FiO2 03/23-03/24 67-188 19-29 125-204/55-99 83-132 9 0-100 Labs: Laboratory Test : 03/23 2215 Chemistry BUN (7 - 18 mg/dL) 22 H Creatinine (0.6 - 1.3 mg/dL) 0.9 Hematology WBC (4.5 - 11.0 x10 3/uL) 18.8 H Microbiology: 03/23 2235 BLOOD: Blood Culture - RECD 03/23 2215 BLOOD: Blood Culture - RECD Pertinent tests: Recent Impressions: RADIOLOGY - XR CHEST 1 V 03/23 2149 Report Impression - Status: SIGNED Entered: 03/23/20222216 IMPRESSION: No acute cardiopulmonary findings. Impression By: Mejia Rose Drug admin history: Medication(s) Ordered: Anti-Infective Agents Sig/Kathy Start time Last Medication Dose Route Stop Time Status Admin Cefepime HCl 1 GM Q8H 03/23 2330 AC 03/23 Sodium Chloride 100 ML IV 03/30 2329 2350 Vancomycin HCl 1,000 MG ONCE ONE 03/23 2215 DC 03/23 Sodium Chloride 250 ML IV 03/23 2314 2304 Miscellaneous 1 EACH ASDIR 03/23 2100 PEND Information IV 04/22 2059 Treatment plan: consult, initiation of therapy Rationale: 81 y/o female with a h/o of vascular dementia, CAD, diet controlled DM, HTN, low ef (30%) and Aortic regurg, stage III CKD whose h/o began about a month ago where the patient was admitt ed for CP at [facility] (where the patient resides ). Pt at that time had blood cx which were positive for MRSA and the patient was treated for a week in the hospital and 2 weeks a s an outpt with IV abx. The source of the bacteremia was never found (transt horacic echo was negative). After the antibiotics were stopped 2 weeks ago, patient has had a gradual decline with recurrent fever s (103) and having n/v and poor appetite and failure to thrive. Patient was broug ht back to [facility] where repeat blood cx were still positive with coag positive staph. Pt was hypotensive and required pressors and albumin and fluid resuscitation. Cassandra bocanegra was then transferred to [facility] ICU for further e valuation. Pharmacy consulted to manage vancomycin. Consulting Provider: Trevon Kimball MD Indication: Sepsis/Bacteremia Goal trough: 12-18 mcg/mL Other abx: cefepime 1 gm IV q8h 03/24 A/P Labs and Vitals * No temp documented at this time * WBC 18.8 (elevated) * Lactic acid 1.4 (WNL) * CRP 137 (elevated) * ESR 24 (elevated) Renal Function * BUN/SCr 22/0.9 * est CrCl 35 mL/min * history of CKD * no urine output documented at this time Microbiology * 03/23 blood cultures: pending Imaging * 03/23 chest x-ray: no acute findings Plan * loading dose of vancomycin 1000 mg ( 23 mg/kg) IV once * follow with vancomycin 750 mg ( 17 mg/kg) IV q 24h * plan to draw non-steady state trough before e 3rd dose of vancomycin to assess clearance * Pharmacy will continue to follow and adjust as appropriate Thank you, Trevon Kimball MD, for this consult. at 0134 RPT #:[id number] END OF REPORT 2022-03-23 21:32:00-00:00 [id number] [place] [id number] PATIENT NAME: MICHAELA MATIAS ADMIT DATE: 03/23/22 ACCOUNT NO: [id number] ROOM NO: [id number] AGE: 81 REPORT TYPE: CONSULTATION REPORT SEX: F ADMITTING PHYSICIAN:Trevon Kimball MD ATTENDING PHYSICIAN:rTevon Kimball MD CONSULTATION DATE: 03/23/2022 CONSULTING PHYSICIAN: Sherry Gonsales MD HISTORY OF PRESENT ILLNESS: The patient is an 81-year-old female with a history of diabetes, hypertension, and renal failure. Th e patient has some possible early dementia, as well. The patient a few weeks ago was admitted with chest pain. She has elevated troponin and at that time , she had an echocardiogram, which showed ejection fraction of 60%. At that t hazel, no catheterization was done as the family declined. The patient was discharged home and then was later called back because the blood culture was positi ve. She was treated with IV antibiotic for a week and then was discharged ho wv on outpatient antibiotic. She presented today with not feeling well, fatig ue, weakness, and had a temperature of 103 last night was in the Emergen cy Room at [facility] and treated for sepsis and she was positive for stap h. The patient also had an echocardiogram, which showed decreased left ventricular function from 60% to 30% with MR and TR. PAST MEDICAL HISTORY: As mentioned above. REVIEW OF SYSTEMS: Not obtained. SOCIAL HISTORY: Ex-smoker. FAMILY HISTORY: Noncontributory. ALLERGIES: DEMEROL. PHYSICAL EXAMINATION: VITAL SIGNS: Currently stable. Blood pressure is stable, off Levophed. NECK: No JVD. CHEST: Has decreased breath sounds bilaterally. HEART: Regular rate and rhythm. II/ systolic m urmur. ABDOMEN: Soft. Bowel sounds are present. EXTREMITIES: No edema. LABORATORY DATA: All pending at the time of this dictation. ASSESSMENT AND PLAN: The emanuel ient is an 81-year-old female with multiple medical problems, who being diagnosed with sepsis. She i s off IV fluid right now. The chest x-ray showed some radha estion. She is going to be started on IV antibiotic and infectious disease had ashley no consulted. There is concerned that this murmur, which apparently not there before is con cerned about endocarditis and planning PATIENT NAME: MICHAELA MATIAS 1 to do a transesophageal echocardiogram on her in the morning. Monitor the patient very closely supporting her blood pressu re. She is not in any respiratory distress right n ow. Once she is stable and the sepsis resolved will need further cardiac evaluation like heart luis terization for significant decrease in left ventricular function fr om within 2 weeks and she had recently elevated troponin. Thank you for this consultation. Dictated By: Sherry Gonsales MD WT: CON:DELMI/PJ/MANDY Conf#: [id number]/DID#: [id number] Authenticated by Sherry Gonsales MD On 03/28/20 22 11:40:07 AM at 1140 PATIENT NAME: MICHAELA MATIAS 1 2022-03-23 21:04:00-00:00 [facility] ([facility]) Hospitalist History Physical REPORT#:[id number] REPORT STATUS: Signed DATE:03/23/22 TIME: 2103 PATIENT: MICHAELA MATIAS UNIT #: [id number] ROOM/BED: [place] [id number] : 41 AGE: 81 SEX: F ATTEND: Lilian Gonsales MD ADM AUTHOR: Trevon Kimball MD * ALL edits or amendments must be made on the [employer]/computer document * See Addendum History of Present Illness HPI Chief complaint: sepsis PCP: PCP: No Primary or Family Physician HPI: 81 y/o female with a h/o of vascular dementia, CAD, diet controlled DM, HTN, low ef (30%) and Aortic regurg, stage III CKD whose h/o began about a month ago where the patient was admitt ed for CP at [facility] (where the patient resides ). Pt at that time had blood cx which were positive for MRSA and the patient was treated for a week in the hospital and 2 weeks a s an outpt with IV abx. The source of the bacteremia was never found (transt horacic echo was negative). After the antibiotics were stopped 2 weeks ago, patient has had a gradual decline with recurrent fever s (103) and having n/v and poor apetite and failure to thrive. Patient was broug ht back to [facility] where repeat blood cx were still positive with coag positive staph. Pt was hypotensive and required pressors and albumin and fluid resussitation. Cassandra bocanegra was then transferred to [facility] ICU for further evaluation. H/O above is from her grandd Rosemary garcia, who is a cath nurse at [facility]. Pt is a non historian because of her dementia. History Past Medical Surgical Hx Additional medical history: CAD, low EF, vascular dementia, aortic regurg, s tage III CKD, HTN. Additional surgical history: CABG 1990 hysterectomy Family History Additional family history: not relavent to current illness Social History Alcohol use: Denies EtOH use Drug use: Denies recreational drugs Smoking status: Smoking status for patients 13 years old or old er: Former Smoker Medication/Allergy-Vaccine Hx Medications: awaiting family to send to the nurses, the list. Allergies: Coded Allergies: meperidine (NAUSEA VOMITING 03/23/22) Review of Systems Unable to obtain due to: patient has dementia Physical Exam VS/I O: Patient Weight and BMI Weight (kg): BMI: General appearance: confused, frail, alert, awak e Head/Eyes: atraumatic, normocephalic ENT: normal ear left, normal ear right, normal n ose Neck: full range of motion, no JVD Cardiovascular: normal heart sounds, regular rat e rhythm Respiratory: aerating well, clear to auscultatio n, symmetric expansion, no distress Abdomen: non-tender, normal bowel sounds, soft, no distention Extremities: no clubbing, no cyanosis, no edema Musculoskeletal: Right femoral line tripple lume n. 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, no sensory deficit s Results Radiology data: Current Medications Sig/Kathy Start time Last Medication Dose Route Stop Time Status Admin Acetaminophen 650 MG Q4H PRN PRN 03/23 2115 AC PO 04/22 2114 Enoxaparin Sodium 40 MG Q24H 03/23 2115 UNV SUBQ 04/22 2114 Ondansetron HCl 4 MG Q4H PRN PRN 03/23 2115 AC IV 04/22 2114 Cefepime HCl 2 GM Q8H 03/23 2100 UNV Sodium Chloride 100 ML IV 03/30 2059 Dextrose/Water 25 ML ASDIR PRN 03/23 2100 CKD IV 04/22 2059 Dextrose/Water 50 ML ASDIR PRN 03/23 2100 CKD IV 04/22 2059 Glucagon 1 MG ASDIR PRN 03/23 2100 AC IM 04/22 2059 Insulin Human Lispro 0 AC HS 03/23 2100 AC SUBQ 04/22 2059 Miscellaneous 1 EACH ASDIR 03/23 2100 UNV Information IV 04/22 2059 Microbiology: 03/23 2053 BLOOD: Blood Culture - ORD 03/23 2053 BLOOD: Blood Culture - ORD Diagnosis, Assessment Plan Free Text A P: 81 y/o with dementia/HTN/CAD/CHF/aortic regurge/CKD -stage III/DM who presents with persistent bacteremia (presumed MRSA) causi ng sepsis Recurrent gram positive bact eremia - h/o MRSA bacteremia a month ago and treated for 3 weeks with IV abx...no source known. possi ble endocarditis? needs IGLESIA. consult ID. IV vanc and cefepime for now. Septic shock - patient had septic shock at [facility] ER requiring pressors and pt was resussitated with IVF and albumin. Cu rrently BP systolic is 127. defer fluid management to ICC and cardiology. h/o CAD- positive troponin I recently. EF dropped from 60-30 recently. will need ischemia w/u. d/w Dr Gonsales. DM - SSI. check A1C CKD - follow electrolytes, UOP HTN - hold BP meds for now. WILL NEED HOME MEDS RECONCILED ONCE HER MEDS ARE KNOWN. dispo - admit to ICU full code lovenox for DVT prophylaxis Quality: Gen Med Crit Care VTE Prophylaxis VTE prophylaxis initiated: yes Current Medications Unable to obtain: Unable to obtain an accurate home medica tion list at this time. The patient is in an urgent or emergent medical situation where time is of the essence. To delay treatment would jeopardize the pat ient's health status on the day of the encounter. Advanced Care Plan 65 or Older Discussed with: surrogate decis. maker Discussion included: code status Electronically Signed by Trevon Kimball MD on 02/04 at 2126 Addendum 1: 03/23/222126 by Trevon Kimball MD Spent 34 minutes in critical care service with t he patient at her bedside, talking to family, reviewing recorfds, and talking to critical care, cardiology and bedisde nurse. Pt intial ly had septic shock and persistent bacteremia, thus patient requires ICU care for severe recurrent i nfection. Electronically Signed by Trevon Kimball MD on 02/04 at 2127 RPT #:[id number] END OF REPORT"
[2023-03-11 22:13] LABS: Absolute Lymphocytes (CBC) 2.9 K/uL (0.7-4.9); Hematocrit 30.3 % (36.0-45.0); Lymphocytes % 33.2 % (15.3-44.8); MCV 82.6 fL (80-100); MPV 9.1 fL (7.6-11.3); Platelets 268 thou/uL (152-406); RBC Red Blood Cell Count 3.67 M/uL (3.86-4.86)
[2023-03-11] MEDS ORDERED: FENTANYL CITR 100 MCG/2 ML ONE (22:18)
[2023-03-11 22:30] LABS: Albumin 3.5 g/dL (3.4-5.0); Bilirubin Total 0.5 mg/dL (0.2-1.0); Potassium 3.7 mEq/L (3.5-5.1); Protein, Total 8.1 g/dL (6.4-8.2)
--- NOTE | 2023-03-12 00:08 | ER ---
Nurse's Notes [facility] Name: Michaela Matias Age: 82 yrs Sex: Female : 1940 Arrival Date: 03/11/2023 Time: 20:35 Bed 12 Private MD: Diagnosis: Ventral hernia without obstruction or gangrene;Upper abdominal pain, unspecified Presentation: 03/11 20:50 Chief complaint: Patient states: she noticed a lump in the right upper quadrant of her ap3 abdomen this afternoon. patient denies any nausea or vomiting. patient currently rates her pain as a 8/10 on the pain scale. Coronavirus screen: At this time, the client does not indicate any symptoms associated with coronavirus-19. Ebola Screen: No symptoms or risks identified at this time. Initial Sepsis Screen: Does the patient meet any 2 criteria? No. Patient's initial sepsis screen is negative. Does the patient have a suspected source of infection? Yes: Acute abdominal pain. Risk Assessment: Do you want to hurt yourself or someone else? Patient reports no desire to harm self or others. Onset of symptoms was March 11, 2023. 20:50 Method Of Arrival: Wheelchair ap3 20:50 Acuity: ROSALBA 3 ap3 Triage Assessment: 20:52 General: Appears in no apparent distress. Behavior is calm, cooperative, appropriate ap3 for age. Pain: Complains of pain in right upper quadrant Pain currently is 8 out of 10 on a pain scale. Pain began 4 hours ago. Neuro: Level of Consciousness is awake, alert, obeys commands, Oriented to person, place, time, situation. Cardiovascular: Patient's skin is warm and dry. Respiratory: Airway is patent Respiratory effort is even, unlabored, Respiratory pattern is regular, symmetrical. GI: Abdomen is swelling noted to the right upper quadrant Reports upper abdominal pain. Historical: - Allergies: 20:52 Demerol; ap3 - PMHx: 20:52 Alzheimers; Dementia; High Cholesterol; Hypertension; ap3 - PSHx: 20:52 back sx; cardiac bypass; ap3 - Immunization history:: Client reports receiving the 2nd dose of the Covid vaccine. - Social history:: Smoking status: Patient denies any tobacco usage or history of. Screenin:53 Abuse screen: Denies threats or abuse. Nutritional screening: No deficits noted. ap3 Tuberculosis screening: No symptoms or risk factors identified. 03/12 00:14 [facility] ED Fall Risk Assessment (Adult) History of falling in the last 3 months, ap3 including since admission No falls in past 3 months (0 pts) Confusion or Disorientation No (0 pts) Intoxicated or Sedated No (0 pts) Impaired Gait Yes (1 pt) Mobility Assist Device Used Yes (1 pt). Assessment: 00:13 GI: Bowel sounds present X 4 quads. Abd is soft. ap3 Vital Signs: 03/11 20:50 BP 177 / 69; Pulse 105; Resp 18; Temp 98.2; Pulse Ox 99% ; Weight 47.63 kg; Pain 8/10; ap3 03/12 00:14 BP 158 / 70; Pulse 88; Pulse Ox 100% on R/A; ap3 03/11 20:50 Pain Scale: Adult ap3 ED Course: 03/11 20:37 Patient arrived in ED. jj6 20:51 Triage completed. ap3 20:53 Arm band placed on left wrist. ap3 21:01 Tiburcio Deleon DO is Attending Physician. ms3 21:06 Patient has correct armband on for positive identification. Bed in low position. Call ap3 light in reach. Side rails up X 1. Adult w/ patient. Pulse ox on. NIBP on. 22:12 Rosemary Rodrigues, FRANCISCA is Primary Nurse. ap3 22:12 Lactate w/ 2H reflex if indic. Sent. ap3 22:12 CMP Sent. ap3 22:12 CBC with Diff Sent. ap3 23:28 CT Abd/Pelvis - Without Contrast In Process Unspecified. EDMS 03/12 00:13 Provided Education on: discharge instructions. ap3 00:13 No provider procedures requiring assistance completed. IV discontinued, intact, ap3 bleeding controlled, No redness/swelling at site. Pressure dressing applied. Administered Medications: 03/11 22:12 Drug: fentaNYL (PF) IVP 50 mcg Route: IVP; Site: right antecubital; ap3 23:12 Follow up: Response: No adverse reaction; Pain is decreased ap3 03/12 00:14 Follow up: Response: No adverse reaction; Pain is decreased ap3 Medication: 00:14 VIS not applicable for this client. ap3 Outcome: 00:07 Discharge ordered by . ms3 00:13 Discharged to home via wheelchair, with family. ap3 00:13 Condition: good 00:13 Discharge instructions given to patient, family, Instructed on discharge instructions, follow up and referral plans. Demonstrated understanding of instructions, follow-up care. 00:14 Patient left the ED. ap3 Signatures: Dispatcher [employer] Rosemary Dsouza RN RN ap3 Tiburcio Deleon DO DO ms3 Taryn Whittaker jj6
--- NOTE | 2023-03-12 00:08 | EDPHYS ---
Physician Documentation [facility] Name: Michaela Matias Age: 82 yrs Sex: Female : 1940 Arrival Date: 03/11/2023 Time: 20:35 Bed 12 Private MD: ED Physician Tiburcio Deleon HPI: 03/12 00:07 This 82 yrs old Female presents to ER via Wheelchair with complaints of SUSPICIOUS ms3 LUMP-ABDOMEN, Abdominal Pain. 00:07 82-year-old female with past medical history of Alzheimer's, hyperlipidemia, ms3 hypertension presents for right upper quadrant pain with mass. Patient states pain is an 8/10 described as pressure. Patient states pain is nonradiating. Patient states pain began around 5 PM. Patient denies nausea, vomiting, diarrhea, fevers, chills.. Historical: - Allergies: 03/11 20:52 Demerol; ap3 - PMHx: 20:52 Alzheimers; Dementia; High Cholesterol; Hypertension; ap3 - PSHx: 20:52 back sx; cardiac bypass; ap3 - Immunization history:: Client reports receiving the 2nd dose of the Covid vaccine. - Social history:: Smoking status: Patient denies any tobacco usage or history of. ROS: 03/12 00:07 Constitutional: Negative for fever, and chills. Neck: Negative for injury, pain, and ms3 swelling, Cardiovascular: Negative for chest pain, and palpitations. Respiratory: Negative for shortness of breath, cough, wheezing, and pleuritic chest pain. MS/Extremity: Negative for injury and deformity, Skin: Negative for injury, rash, and discoloration. Abdomen/GI: Positive for abdominal pain. Exam: 00:07 Constitutional: This is a well developed, well nourished patient who is awake, alert, ms3 and in no acute distress. Head/Face: Normocephalic, atraumatic. Neck: Trachea midline, no cervical lymphadenopathy. Supple, full range of motion without nuchal rigidity, or vertebral point tenderness. No Meningismus. Chest/axilla: Normal chest wall appearance and motion. Nontender with no deformity. Cardiovascular: Regular rate and rhythm with a normal S1 and S2. No gallops, murmurs, or rubs. Normal PMI, no JVD. No pulse deficits. Respiratory: Lungs have equal breath sounds bilaterally, clear to auscultation and percussion. No rales, rhonchi or wheezes noted. No increased work of breathing, no retractions or nasal flaring. Skin: Warm, dry with normal turgor. Normal color with no rashes, no lesions, and no evidence of cellulitis. MS/ Extremity: Pulses equal, no cyanosis. Neurovascular intact. Full, normal range of motion. 00:07 Abdomen/GI: Inspection: Mass upper abdomen, Bowel sounds: normal, Palpation: moderate abdominal tenderness, in the right upper quadrant, Hernia: noted in the paraumbilical area, tenderness, that is moderate. Vital Signs: 03/11 20:50 BP 177 / 69; Pulse 105; Resp 18; Temp 98.2; Pulse Ox 99% ; Weight 47.63 kg; Pain 8/10; ap3 03/12 00:14 BP 158 / 70; Pulse 88; Pulse Ox 100% on R/A; ap3 03/11 20:50 Pain Scale: Adult ap3 MDM: 03/11 21:17 Patient medically screened. ms3 03/12 00:07 Differential diagnosis: bowel obstruction, cholecystitis, Cholelithiasis, non-specific ms3 abd pain, Incarcerated hernia. Data reviewed: vital signs, nurses notes, lab test result(s), radiologic studies, CT scan, and as a result, I will discharge patient. Consideration of Admission/Observation Escalation of care including admission/observation considered. Imaging does not reveal strangulated hernia, obstruction. Labs are reassuring. I considered the following discharge prescriptions or medication management in the emergency department Medications were administered in the Emergency Department. See MAR. Independent interpretation of the following test(s) in the Emergency Department CT Scan: My interpretation is CT abdomen pelvis images reviewed by me do not reveal bowel obstruction.. Historians other than the Patient: Daughter/Son: Patient's son. Care significantly affected by the following chronic conditions: Dementia, hyperlipidemia, hypertension. Counseling: I had a detailed discussion with the patient and/or guardian regarding the historical points, exam findings, and any diagnostic results supporting the discharge/admit diagnosis, lab results, radiology results, the need for outpatient follow up, to return to the emergency department if symptoms worsen or persist or if there are any questions or concerns that arise at home. Special discussion: I discussed with the patient/guardian in detail that at this point there is no indication for admission to the hospital. It is understood, however, that if the symptoms persist or worsen the patient needs to return immediately for re-evaluation. ED course: Patient's pain improved after reduction of hernia. Discussed labs and imaging results with patient and her son. Patient to follow-up with primary care physician as discussed. All questions were answered. Return precautions discussed include worsening symptoms, vomiting, fevers, chills, or any other concerns. 03/11 21:42 Order name: CBC with Diff; Complete Time: 22:35 ms3 03/11 21:42 Order name: CMP; Complete Time: 22:35 ms3 03/11 21:42 Order name: Lactate w/ 2H reflex if indic.; Complete Time: 22:35 ms3 03/11 22:36 Order name: CT Abd/Pelvis - Without Contrast ms3 Administered Medications: 03/11 22:12 Drug: fentaNYL (PF) IVP 50 mcg Route: IVP; Site: right antecubital; ap3 23:12 Follow up: Response: No adverse reaction; Pain is decreased ap3 03/12 00:14 Follow up: Response: No adverse reaction; Pain is decreased ap3 Disposition Summary: 03/12/23 00:07 Discharge Ordered Location: Home ms3 Condition: Stable ms3 Diagnosis - Ventral hernia without obstruction or gangrene ms3 - Upper abdominal pain, unspecified ms3 Followup: ms3 - With: Private Physician - When: 1 - 2 days - Reason: Recheck today's complaints Discharge Instructions: - Discharge Summary Sheet ms3 - Abdominal Pain, Adult ms3 - Hernia, Adult ms3 - Hernia, Adult, [id number] ms3 Forms: - Medication Reconciliation Form ms3 - Thank You Letter ms3 - Antibiotic Education ms3 - Prescription Opioid Use ms3 - Patient Portal Instructions ms3 - Leadership Thank You Letter ms3 Signatures: Dispatcher [employer] Rosemary Dsouza RN RN ap3 Tiburcio Deleon DO DO ms3
[2023-03-12 00:19] VITALS: TEMP 98.2
[2023-03-12 00:20] VITALS: BP 158/70; O2SAT 100
--- NOTE | 2023-03-13 10:46 | RAD REPORT ---
EXAM DESCRIPTION: CT - Abdomen Pelvis Wo Contrast - 03/12/2023 6:55 am CLINICAL HISTORY: The patient is 82 years old and is Female; RUQ hernia;Abd pain TECHNIQUE: Axial computed tomography images of the abdomen and pelvis without intravenous contrast. Sagittal and coronal reformatted images were created and reviewed. This CT exam was performed usi ng one or more of the following dose reduction techniques: automated exposure control, adjustment o f the mA and/or kV according to patient size, and/or use of iterative reconstruction technique. COMPARISON: CT of the abdomen and pelvis March 22, 2022 FINDINGS: LUNG BASES: Unremarkable. No mass. No consolidation. PLEURAL SPACE: Trace right pleural effusion is present. ABDOMEN: LIVER: Homogeneous without focal mass. GALLBLADDER AND BILE DUCTS: No calcified stones. No ductal dilation. PANCREAS: Fatty infiltration of pancreas is present. No ductal dilation. SPLEEN: Unremarkable. ADRENALS: Unremarkable. No mass. KIDNEYS AND URETERS: No obstructing stones. No hydronephrosis. No perinephric fluid. STOMACH AND BOWEL: The stomach is decompressed. The small bowel is normal in caliber. A moderate amount stool is present throughout colon. There is no mucosal thickening or evidence of obstruction. PELVIS: APPENDIX: The appendix is normal in caliber without surrounding inflammation. BLADDER: Unremarkable. No stones. REPRODUCTIVE: The patient is status post hysterectomy. ABDOMEN and PELVIS: INTRAPERITONEAL SPACE: Unremarkable. No free air. No significant fluid collection. BONES/JOINTS: The bones are osteopenic. Postsurgical change of lumbar spine with spinal rods and pedicle screws from L4 through S1 is noted. There is no acute fracture. SOFT TISSUES: A small fat-containing ventral wall hernia is present. VASCULATURE: Atherosclerosis of the vasculature is present. The vessels are normal in caliber. No abdominal aortic aneurysm. LYMPH NODES: Minimally prominent bilateral inguinal chain lymph nodes are present. IMPRESSION: 1. Narrow mouthed ventral wall hernia mainly containing fat and minimal fluid. This is slightly increased in size from prior exam. 2. Moderate stool burden without obstruction. Normal appendix. Electronically signed by: Nubia Mac MD 03/11/2023 11:52 PM CDT Due to temporary technical issues with the PACS/Fluency reporting system, reports are being signed by the in house radiologist without review as a courtesy to ensure prompt reporting. The interpreting r adiologist is fully responsible for the content of the report.
== END 2023-03-12 00:14 | disposition home or self-care (01) ==
LOC: ER 20:35
DX: K43.9 Ventral hernia without obstruction or gangrene (principal); I10 Essential (primary) hypertension; G30.9 Alzheimer's disease, unspecified; F02.80 Dementia in other diseases classified elsewhere, unspecified severity, without behavioral disturbance, psychotic disturbance, mood disturbance, and anxiety; Z88.5 Allergy status to narcotic agent; Z95.1 Presence of aortocoronary bypass graft
CPT/HCPCS: 85025; 36415; 83605; 80053; 74176; 96374; 99284; J3010